=== PATIENT | male | born 1940 | race Caucasian/White ===

== ENCOUNTER 2016-10-13 05:56 | Day surgery (SDC) | payer OTHER ==
[~2016-10-13] VITALS: Ht 177.8 cm; Wt 93.2 kg
[~2016-10-13 05:56] MED LIST: GABA100C4 PO; LORTA5 PO; NOVOLOGP2 SQ; VALT1TAB26 PO
[2016-10-13] MEDS ORDERED: LANTUS2P SQ ×2 (06:40)
[2016-10-13] MEDS ORDERED: LATA0.002 RIGHT EYE (06:40)
[2016-10-13] MEDS ORDERED: OCUVTAB4 PO (06:40)
[2016-10-13] MEDS ORDERED: DORZ2SOL RIGHT EYE (06:40)
[2016-10-13] MEDS ORDERED: CHLORHEXIDINE GLUCONATE 2 % 1 PACK (2 CLOTHS) TOPICAL SCH (06:45)
[2016-10-13] MEDS ORDERED: SODIUM CHLORIDE 0.9% 1000 ML IV SCH (06:45)
[2016-10-13] MEDS ORDERED: POVIDONE IODINE 5% (ANTISEPSIS KIT) 4 APPLICATIONS EACH NARE SCH (06:45)
[2016-10-13] MEDS ORDERED: ceFAZolin 2 GM PREMIX 50 ML - implanted port/tunneled catheter insertion IV SCH (06:45)
[2016-10-13] MEDS ORDERED: VANCOMYCIN 1000 MG/NS 250 ML - implanted port/tunneled catheter IV SCH ×2 (06:45)
[2016-10-13 07:00] VITALS: BP 167/86; PULSE 76; RESP 16; TEMP 97.6; O2SAT 97
[2016-10-13] MEDS ORDERED: MIDAZOLAM HCL 2 MG/2 ML VIAL ONE (07:50)
[2016-10-13] MEDS ORDERED: fentaNYL CITRATE 250 MCG/5 ML AMP ONE (07:50)
[2016-10-13] MEDS ORDERED: LIDOCAINE 1%/EPINEPHrine 1:100,000 SOLN 20 ML VIAL ONE (08:06)
--- NOTE | 2016-10-13 08:51 | PD.RAD ---
Post Procedure Progress Note Pre Procedure Diagnosis: (1) Bladder cancer Post Procedure Diagnosis: (1) Bladder cancer Procedure Date: Oct 13, 2016 Supervising Radiologist: Ezio Briseno JR Proceduralist/Assist: Winston Baker, RT(R), Brandon Jolley RT(R) Anesthesia: Conscious Sedation Plan of Activity Patient to Unit: ROPU Patient Condition: Good See PACS Report for procedural detail/treatment Central Venous Access Device Procedure 1 Right Internal Jugular Infusaport Placement single lumen Salvadorean: 8 Findings: Port in good position and functions well. OK to use. Plan F/U with IR or a physician in 10-14 days for a site check Jr. Finn,Ezio Herman MD Oct 13, 2016 08:51
[2016-10-13 09:00] VITALS: BP 148/74; PULSE 83; RESP 16; TEMP 97.5; O2SAT 97
[2016-10-13] MEDS ORDERED: SODIUM CHLORIDE 0.9% FLUSH 10 ML FLUSH IVF PRN (09:00)
[2016-10-13 09:15] VITALS: BP 139/85; PULSE 81; RESP 16; O2SAT 96
[2016-10-13 09:30] VITALS: BP 127/76; PULSE 75; RESP 16; O2SAT 94
[2016-10-13 10:00] VITALS: BP 126/65; PULSE 75; RESP 16; O2SAT 96
[2016-10-13 10:36] VITALS: BP 135/85; PULSE 74; RESP 16; O2SAT 96
--- NOTE | 2016-10-13 14:47 | RADRPT ---
EXAM DATE/TIME: 10/13/2016 08:21 [facility] COMPARISON: No previous studies available for comparison. INDICATIONS : Patient presents with bladder cancer in need port placement for chemotherapy treatment. MEDICAL HISTORY : DM Prostate cancer Diverticulosis [place] SAL[place] Glac[place] Hyperlipidemia Bladder cancer SURGICAL HISTORY : Vasectomy Stent L common iliac Coronary stent BKA Left leg ENCOUNTER: Initial ACUITY: 2 months PAIN SCORE: 0/10 LOCATION: n/a FLUORO TIME: 0.4 minutes IMAGE SERIES: 0 SEDATION TIME: 30 minutes ACCESS: Right internal jugular vein SEDATION: 1.) 2 mg midazolam (Versed) IV 2.) 125 mcg fentanyl (Sublimaze) IV Prophylactic antibiotics were administered with appropriate pre-procedure timing. Vancomycin within 2 hours of procedure, Ancef (or alternative) within 1 hour of procedure. DEVICE: 1. [address] Armenian [address] w/vortex PROCEDURE : 1. Continuous pulse oximetry and EKG monitoring. 2. Intravenous conscious sedation. 3. Ultrasound guidance for venous access. 4. Fluoroscopic guided implantable central venous port placement. The patient was placed supine. The neck was prepped in sterile fashion. Full sterile technique was u sed, including cap, mask, sterile gloves and gown, and a large sterile sheet. Hand hygiene and 2% ch lorhexidine Betadine was utilized per protocol for cutaneous antisepsis with appropriate dry time for site. The skin and subcutaneous tissues were infiltrated with local anesthetic solution. Under direct ultrasound guidance, central venous access was accomplished in the targeted vessel. The ultrasound images depicting access guidance were stored and saved to PACS for permanent record. A s ubcutaneous pocket was created using blunt dissection. The port was introduced to the pocket. The c atheter tubing was fed through a subcutaneous tunnel to the venotomy site. The catheter tubing was c ut to a suitable length and then was introduced through a valved Peel-Away sheath and positioned with catheter tubing tip at the cavo-atrial junction level. The pocket incision was closed with subcutic ular Vicryl suture. Steri-Strips were applied. The port was flushed and locked with heparin solutio n per protocol. Sterile dressing was applied to the site. The patient tolerated the procedure well. Conscious sedation was performed with the prescribed dosages and duration as above in the presence of an independent trained radiology nurse to assist in the monitoring of the patient. EKG and oximetry remained stable throughout the procedure. The patient tolerated the procedure well and there were no complications. The patient was sent to post anesthesia recovery in stable condition. CONCLUSION: Uncomplicated ultrasound and fluoroscopic guided implanted central venous port catheter placement as described in detail above. An 8 Armenian Power port was placed. Ezio Briseno Jr., MD on October 13, 2016 at 14:45 Board Certified Radiologist. This report was verified electronically.
== END 2016-10-13 10:50 | disposition home or self-care (01) ==
LOC: HROP 05:56 → HRIP 06:42 → HROP 10:50
PROVIDERS: ATTEND Internal Medicine Hematology & Oncology
DX: Z45.2 Encounter for adjustment and management of vascular access device (principal); C67.9 Malignant neoplasm of bladder, unspecified; Z85.46 Personal history of malignant neoplasm of prostate; E11.9 Type 2 diabetes mellitus without complications; K57.90 Diverticulosis of intestine, part unspecified, without perforation or abscess without bleeding; E78.5 Hyperlipidemia, unspecified; Z79.4 Long term (current) use of insulin
CPT/HCPCS: 36561; 76937; 77001; 99152; 99153; C1788; C1894; J0690; J1642; J2250; J3010; J3370; J7030; J7050

== ENCOUNTER 2017-02-06 15:15 | Inpatient (IN) | payer OTHER, MEDICARE ==
[~2017-02-06] VITALS: Ht 177.8 cm; Wt 86.7 kg
[~2017-02-06 15:15] MED LIST changes: +DORZ2SOL RIGHT EYE; -GABA100C4 PO; +LANTUS2P SQ; +LATA0.002 RIGHT EYE; -LORTA5 PO; -NOVOLOGP2 SQ; +OCUVTAB4 PO; -VALT1TAB26 PO
[2017-02-06 15:45] VITALS: BP 190/86; PULSE 96; RESP 16; TEMP 97.9; O2SAT 97
[2017-02-06] MEDS ORDERED: AMLO10TA2 PO (16:38)
[2017-02-06] MEDS ORDERED: TEMA15CA PO (16:38)
[2017-02-06 16:40] VITALS: BP 231/105; PULSE 99; RESP 20; TEMP 98.1; O2SAT 98
[2017-02-06] MEDS ORDERED: SODIUM CHLOR 0.9% 1000 ML INJ 1,000 ML IV ONE (16:56)
[2017-02-06] MEDS ORDERED: SODIUM CHLORIDE 0.9% FLUSH 10 ML FLUSH IVF PRN (17:00)
--- NOTE | 2017-02-06 17:09 | PD ---
HPI Chief Complaint: Fall Time Seen by Provider: 16:44 Travel History International Travel<30 days: No Contact w/Intl Traveler<30days: No Traveled to known affect area: No History of Present Illness HPI This is a 76-year-old male with a history of bladder cancer, diabetes mellitus, hypertension, and presents here after having a syncopal episode. The patient states he is out sitting in the sun when he passed out. He denies any preceding events leading up to syncopal episode. He denies any chest pain, chest pressure. There is no headache. The patient is also noted to have elevated blood pressure with his diastolic and systolic being over 200/100 respectively. A shunt recently had his last chemotherapy for his bladder cancer. He scheduled to go to [facility] for bladder removal here within the next few weeks. 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 Patient also reports that his blood sugar has been on the high side. When asked what the high side meant, he states above 200 but below 300. also reports that he's been somewhat unstable on his gait. He also complains of right ankle pain. 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 PFSH Past Medical History Arthritis: Yes Anxiety: No Depression: Yes Heart Rhythm Problems: No Cancer: Yes (bladder, PROSTATE ) Cardiomyopathy: Yes Cardiovascular Problems: No High Cholesterol: Yes Congestive Heart Failure: No Cerebrovascular Accident: Yes (TIA ) Coronary Artery Disease: Yes Diabetes: Yes Patient Takes Glucophage: No Diminished Hearing: Yes (PALA RT EAR) Endocrine: Yes (diabetes) GERD: Yes Genitourinary: Yes (bladder cancer) Hepatitis: No Hiatal Hernia: No Hypertension: Yes Immune Disorder: No Implanted Vascular Access Dvce: Yes (PORT R CHEST ) Kidney Stones: No Medical other: Yes (HYPERLIPIDEMIA) Musculoskeletal: Yes (LBKA) Neurologic: Yes (cva) Psychiatric: No Reproductive: No Respiratory: No Migraines: No Radiation Therapy: Yes (2006) Renal Failure: No Seizures: No Shingles: Yes Sleep Apnea: No Thyroid Disease: No Ulcer: No Tetanus Vaccination: > 5 Years Influenza Vaccination: Yes Past Surgical History Abdominal Surgery: Yes (cholecystectomy) AICD: No Arteriovenous Shunt: No Body Medical Devices: L ILIAC STENT Cardiac Surgery: No Cholecystectomy: Yes Coronary Stent: Yes (DR. SIMEON) Ear Surgery: No Endocrine Surgery: Yes (thyroid) Eye Surgery: Yes (cataract right eye) Genitourinary Surgery: Yes (bladder) Gynecologic Surgery: No Insulin Pump: No Joint Replacement: No Neurologic Surgery: Yes (back) Oral Surgery: No Pacemaker: No Thoracic Surgery: No Tonsillectomy: Yes Other Surgery: Yes (LBKA, cholecystectomy, bladder, back. 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 benazepril (Unverified Adverse Reaction, Intermediate, Cough, 02/06/17) captopril (Unverified Adverse Reaction, Intermediate, Cough, 02/06/17) enalaprilat (Unverified Adverse Reaction, Intermediate, Cough, 02/06/17) fosinopril (Unverified Adverse Reaction, Intermediate, Cough, 02/06/17) lisinopril (Unverified Adverse Reaction, Intermediate, Cough, 02/06/17) quinapril (Unverified Adverse Reaction, Intermediate, Cough, 02/06/17) Reported Meds & Prescriptions Reported Meds & Active Scripts Active Reported Temazepam 15 Mg Cap 15 Mg PO HS PRN Amlodipine (Amlodipine Besylate) 10 Mg Tab 10 Mg PO DAILY Preservision Areds (Multiple Vitamins W/ Minerals) 1 Tab 2 Tab PO DAILY Dorzolamide Opth Drops (Dorzolamide HCl) 2% Soln 1 Drop RIGHT EYE BID Latanoprost Opth Drops (Latanoprost) 0.005% Drops 1 Drop RIGHT EYE HS Refrigerate until opened. Lantus Inj (Insulin Glargine) 1,000 Unit/10 Ml Vial 30 Units SQ HS Lantus Inj (Insulin Glargine) 1,000 Unit/10 Ml Vial 25 Units SQ DAILY Review of Systems Except as stated in HPI: all other systems reviewed are Neg General / Constitutional: No: Fever, Chills HENT: Positive: Lightheadedness, No: Headaches Cardiovascular: No: Chest Pain or Discomfort, Palpitations Respiratory: No: Cough, Shortness of Breath Gastrointestinal: No: Nausea, Vomiting Genitourinary: Positive: Dysuria Musculoskeletal: Positive: Weakness, Pain Neurologic: Positive: Weakness, Syncope, Headache Physical Exam Narrative GENERAL: Ill appearing male in no acute rest her distress. SKIN: Focused skin assessment warm/dry. HEAD: Atraumatic. Normocephalic. EYES: Pupils equal and round. No scleral icterus. No injection or drainage. ENT: No nasal bleeding or discharge. Mucous membranes pale and moist NECK: Trachea midline. No JVD. Supple. CARDIOVASCULAR: Regular rate and rhythm. No murmur appreciated. RESPIRATORY: No accessory muscle use. Clear to auscultation. Breath sounds equal bilaterally. GASTROINTESTINAL: Abdomen soft, non-tender, nondistended. MUSCULOSKELETAL: No obvious deformities. No clubbing. No cyanosis. No edema. NEUROLOGICAL: Awake and alert. No obvious cranial nerve deficits. Motor grossly within normal limits. Normal speech. Data Data Last Documented VS Vital Signs Date Time Temp Pulse Resp B/P (MAP) Pulse Ox O2 Delivery O2 Flow Rate FiO2 02/06/17 19:00 99 16 215/95 (135) 99 02/06/17 18:39 Room Air 02/06/17 16:40 98.1 Orders Orders Electrocardiogram (02/06/17 16:56) Complete Blood Count With Diff (02/06/17 16:56) Comprehensive Metabolic Panel (02/06/17 16:56) Ckmb (Isoenzyme) Profile (02/06/17 16:56) Troponin I (02/06/17 16:56) Act Partial Throm Time (Ptt) (02/06/17 16:56) Prothrombin Time / Inr (Pt) (02/06/17 16:56) Urinalysis - C+S If Indicated (02/06/17 16:56) Chest, Single Ap (02/06/17 16:56) Ct Brain W/O Iv Contrast(Rout) (02/06/17 16:56) Ecg Monitoring (02/06/17 16:56) Iv Access Insert/Monitor (02/06/17 16:56) Oximetry (02/06/17 16:56) Sodium Chloride 0.9% Flush (Ns Flush) (02/06/17 17:00) Sodium Chlor 0.9% 1000 Ml Inj (Ns 1000 M (02/06/17 16:56) Ankle, Limited (Ap&Lat) (02/06/17 17:09) Urine Culture (02/06/17 17:30) CKMB (02/06/17 17:30) CKMB% (02/06/17 17:30) Potassium Chloride (Kcl) (02/06/17 19:00) Ns + Kcl 40 Meq Inj (Ns + Kcl 40 Meq Inj (02/06/17 19:45) Labs Laboratory Tests Test 02/06/17 17:30 White Blood Count 5.2 TH/MM3 Red Blood Count 2.89 MIL/MM3 Hemoglobin 8.9 GM/DL Hematocrit 26.1 % Mean Corpuscular Volume 90.4 FL Mean Corpuscular Hemoglobin 30.9 PG Mean Corpuscular Hemoglobin Concent 34.2 % Red Cell Distribution Width 21.7 % Platelet Count 227 TH/MM3 Mean Platelet Volume 8.4 FL Neutrophils (%) (Auto) 67.1 % Lymphocytes (%) (Auto) 13.3 % Monocytes (%) (Auto) 17.8 % Eosinophils (%) (Auto) 1.4 % Basophils (%) (Auto) 0.4 % Neutrophils # (Auto) 3.5 TH/MM3 Lymphocytes # (Auto) 0.7 TH/MM3 Monocytes # (Auto) 0.9 TH/MM3 Eosinophils # (Auto) 0.1 TH/MM3 Basophils # (Auto) 0.0 TH/MM3 CBC Comment DIFF FINAL Differential Comment Prothrombin Time 10.8 SEC Prothromb Time International Ratio 1.0 RATIO Activated Partial Thromboplast Time 20.6 SEC Urine Color YELLOW Urine Turbidity HAZY Urine pH 6.5 Urine Specific [place] 1.025 Urine Protein GREATER THAN 600 mg/dL Urine Glucose (UA) 300 mg/dL Urine Ketones TRACE mg/dL Urine Occult Blood MOD Urine Nitrite NEG Urine Bilirubin NEG Urine Urobilinogen LESS THAN 2.0 MG/DL Urine Leukocyte Esterase NEG Urine RBC 4 /hpf Urine WBC 5 /hpf Urine WBC Clumps RARE Urine Bacteria OCC /hpf Urine Hyaline Casts 3 /lpf Urine Granular Casts 3 /lpf Urine Mucus FEW /lpf Microscopic Urinalysis Comment CULTURE INDICATED Blood Urea Nitrogen 14 MG/DL Creatinine 0.85 MG/DL Random Glucose 141 MG/DL Total Protein 4.0 GM/DL Albumin 1.8 GM/DL Calcium Level 5.3 MG/DL Alkaline Phosphatase 56 U/L Aspartate Amino Transf (AST/SGOT) 17 U/L Alanine Aminotransferase (ALT/SGPT) 9 U/L Total Bilirubin 0.4 MG/DL Sodium Level 143 MEQ/L Potassium Level 2.6 MEQ/L Chloride Level 116 MEQ/L Carbon Dioxide Level 18.3 MEQ/L Anion Gap 9 MEQ/L Estimat Glomerular Filtration Rate 88 ML/MIN Protein Corrected Calcium 6.6 MG/DL Total Creatine Kinase 157 U/L Creatine Kinase MB 3.2 NG/ML Troponin I 0.05 NG/ML MDM Medical Decision Making Medical Screen Exam Complete: Yes Emergency Medical Condition: Yes Differential Diagnosis Cardiac syncope versus hypertensive urgency/emergency versus metabolic derangement Narrative Course 76-year-old male presents after having a syncopal episode. The patient was noted to have elevated blood pressure here. Patient also has a history of bladder cancer and received his last dose of chemotherapy last week. He has a history of anemia as well. He denies any arrhythmia or irregular heart feelings. The patient is noted to have a potassium of 2.6. He is also noted to have a calcium level 5.1. He'll be admitted to the hospital. He'll be typed and crossed. He'll be given hydralazine, 20 mg times one dose. Case was discussed with Dr. Aileen Bingham, [facility] hospitalist. Diagnosis Primary Impression: Syncope Additional Impressions: Uncontrolled hypertension Hypokalemia Hypocalcemia Anemia History of bladder cancer Admitting Information Admitting Physician Requests: Admit Torito Gates MD Feb 06, 2017 17:09
--- NOTE | 2017-02-06 17:15 | RADRPT ---
EXAM DATE/TIME: 02/06/2017 17:05 [facility] COMPARISON: No previous studies available for comparison. INDICATIONS : Palpitations MEDICAL HISTORY : Hypertension. Cardiovascular disease Diabetes mellitus type 1. SURGICAL HISTORY : Infusaport ENCOUNTER: Initial ACUITY: 1 day PAIN SCORE: 0/10 LOCATION: chest FINDINGS: A single view of the chest demonstrates the lungs to be symmetrically aerated without evidence of mas s, infiltrate or effusion. [id number] in good position. Mild compensated cardiomegaly kable. Os seous structures are intact. CONCLUSION: Compensated cardiomegaly otherwise negative Bennett Ibarra MD FACR on February 06, 2017 at 17:13 Board Certified Radiologist. This report was verified electronically.
--- NOTE | 2017-02-06 17:47 | RADRPT ---
EXAM DATE/TIME: 02/06/2017 17:17 [facility] COMPARISON: No previous studies available for comparison. INDICATIONS : Fall. Medial right ankle pain. MEDICAL HISTORY : Hypertension. Cardiovascular disease. Diabetes mellitus type I. SURGICAL HISTORY : Infusaport. ENCOUNTER: Initial ACUITY: 1 day PAIN SCORE: 4/10 LOCATION: Right medial ankle FINDINGS: Moderate vascular calcifications. Negative for fracture. Anatomic alignment. CONCLUSION: Negative for fracture. Bennett Ibarra MD FACR on February 06, 2017 at 17:45 Board Certified Radiologist. This report was verified electronically.
[2017-02-06 18:08] LABS: AUTOMATED NEUTROPHIL # 3.5 TH/MM3 (1.8-7.7); BASOPHIL % 0.4 % (0.0-2.0); EOSINOPHIL # 0.1 TH/MM3 (0-0.4); EOSINOPHIL % 1.4 % (0.0-4.0); HEMATOCRIT 26.1 % (39.0-51.0); HEMO FLAGS DIFF FINAL; LYMPH % 13.3 % (9.0-44.0); LYMPHOCYTE # 0.7 TH/MM3 (1.0-4.8); MEAN CELL VOLUME 90.4 FL (80.0-100.0); MEAN CORPUSCULAR HEMOGLOBIN 30.9 PG (27.0-34.0); MEAN CORPUSCULAR HGB CONC 34.2 % (32.0-36.0); MONO % 17.8 % (0.0-8.0); NEUT % 67.1 % (16.0-70.0); PLATELET COUNT 227 TH/MM3 (150-450); RED BLOOD COUNT 2.89 MIL/MM3 (4.50-5.90); RED CELL DISTRIBUTION WIDTH 21.7 % (11.6-17.2); WHITE BLOOD COUNT 5.2 TH/MM3 (4.0-11.0)
[2017-02-06 18:18] LABS: BACTERIA, URINE OCC /hpf; BLOOD, URINE MOD (NEG); COMMENT (UR) CULTURE INDICATED; CULTURE IF INDICATED CULTURE INDICATED; GLUCOSE,URINE 300 mg/dL (NEG); GRANULAR CAST, URINE 3 /lpf; HYALINE CAST, URINE 3 /lpf (RARE); KETONE, URINE TRACE mg/dL (NEG); MUCUS URINE FEW /lpf (OCC); NITRITE,URINE NEG (NEG); PH, URINE 6.5 (5.0-8.5); URINE COLOR YELLOW (YELLW/STRAW)
[2017-02-06 18:26] LABS: APTT (PATIENT) 20.6 SEC (24.3-30.1); PROTHROMBIN TIME - PATIENT 10.8 SEC (9.8-11.6)
[2017-02-06 18:39] VITALS: BP 221/100; PULSE 98; RESP 20; O2SAT 96
[2017-02-06 18:49] LABS: ALT (GPT) 9 U/L (12-78); ANION GAP 9 MEQ/L (5-15); AST (GOT) 17 U/L (15-37); BICARBONATE 18.3 MEQ/L (21.0-32.0); BLOOD UREA NITROGEN 14 MG/DL (7-18); CHLORIDE 116 MEQ/L (98-107); GLOMERULAR FILTRATION RATE 88 ML/MIN (>89); SODIUM (NA) 143 MEQ/L (136-145)
[2017-02-06 18:52] LABS: ALKALINE PHOSPHATASE 56 U/L (45-117); CREATINE KINASE 157 U/L (39-308); TOTAL BILIRUBIN ADULT 0.4 MG/DL (0.2-1.0)
[2017-02-06 18:55] LABS: CALCIUM-PROTEIN CORRECTED 6.6 MG/DL (8.5-10.1)
[2017-02-06 18:56] LABS: POTASSIUM 2.6 MEQ/L (3.5-5.1)
[2017-02-06 19:00] VITALS: BP 215/95; PULSE 99; RESP 16; O2SAT 99
[2017-02-06] MEDS ORDERED: POTASSIUM CHLORIDE 10 MEQ CONTROLLED RELEASE TAB PO ONE (19:00)
[2017-02-06 19:09] LABS: CKMB 3.2 NG/ML (0.5-3.6)
--- NOTE | 2017-02-06 19:12 | RADRPT ---
EXAM DATE/TIME: 02/06/2017 17:57 [facility] COMPARISON: No previous studies available for comparison. INDICATIONS : Patient fell due to dizziness. RADIATION DOSE: 48.35 CTDIvol (mGy) MEDICAL HISTORY : Cardiovascular disease. Hypertension. Diabetes mellitus type 1.bladder cancer, prostate cancer SURGICAL HISTORY : Cholecystectomy. ENCOUNTER: Initial ACUITY: 1 day PAIN SCALE: 5/10 LOCATION: cranial TECHNIQUE: Multiple contiguous axial images were obtained of the head. Using automated exposure control and adj ustment of the mA and/or kV according to patient size, radiation dose was kept as low as reasonably a chievable to obtain optimal diagnostic quality images. DICOM format image data is available electro nically for review and comparison. FINDINGS: CEREBRUM: The ventricles are normal for age. Mild, symmetric cortical atrophy. 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 No evidence of midline shift, mass lesion, hemorrhage or acute infarction. No extra-axial fluid collections are seen. POSTERIOR FOSSA: The cerebellum and brainstem are intact. The 4th ventricle is midline. The cerebellopontine angle i s unremarkable. EXTRACRANIAL: The visualized portion of the orbits is intact. Fluid in some of the mastoid air cells on the right c haracteristic of a mastoiditis. SKULL: The calvaria is intact. No evidence of skull fracture. CONCLUSION: 1. 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 2. Mild, acute mastoiditis on the right. 3. Otherwise, no acute intracranial process. Ernesto Doss MD on February 06, 2017 at 19:06 Board Certified Radiologist. This report was verified electronically.
[2017-02-06] MEDS ORDERED: SENNOSIDES 8.6 MG TAB PO PRN (19:45)
[2017-02-06] MEDS ORDERED: ACETAMINOPHEN 325 MG TAB PO PRN (19:45)
[2017-02-06] MEDS ORDERED: DEXTROSE 50% IN WATER 50 ML VIAL(D50) IV PUSH PRN (19:45)
[2017-02-06] MEDS ORDERED: MAGNESIUM HYDROXIDE SUSP 30 ML CUP PO PRN (19:45)
[2017-02-06] MEDS ORDERED: BISACODYL 10 MG SUPP RECTAL PRN (19:45)
[2017-02-06] MEDS ORDERED: LACTULOSE SYRUP 20 GM/30 ML CUP PO PRN (19:45)
[2017-02-06] MEDS ORDERED: ONDANSETRON HCL 4 MG/2 ML VIAL IVP PRN (19:45)
[2017-02-06] MEDS ORDERED: NALOXONE HCL 0.4 MG/ML AMP IV PUSH PRN (19:45)
[2017-02-06] MEDS ORDERED: SODIUM CHLORIDE 0.9% FLUSH 10 ML FLUSH IV FLUSH PRN (19:45)
[2017-02-06] MEDS ORDERED: GLUCAGON 1 MG/ML VIAL OTHER PRN (19:45)
[2017-02-06] MEDS ORDERED: TEMAZEPAM 15 MG CAP PO PRN (20:00)
[2017-02-06] MEDS ORDERED: hydrALAZINE HCL 20 MG/ML VIAL IV PUSH ONE (20:00)
[2017-02-06] MEDS ORDERED: cefTRIAXone INJ 1,000 MG in SODIUM CHLORIDE 0.9% INJ 100 ML IV ONE (20:00)
[2017-02-06] MEDS ORDERED: cefTRIAXone INJ 1,000 MG in SODIUM CHLORIDE 0.9% INJ 100 ML IV SCH (20:00)
[2017-02-06] MEDS: NS + KCL 40 MEQ INJ 1,000 ML IV SCH (20:03)
[2017-02-06 20:33] VITALS: BP 153/70
[2017-02-06 20:36] VITALS: BP 160/71; PULSE 110; RESP 20; TEMP 98; O2SAT 98
[2017-02-06] MEDS ORDERED: INSULIN GLARGINE 1,000 UNITS/10 ML VIAL SQ SCH (21:00)
[2017-02-06] MEDS: SODIUM CHLORIDE 0.9% FLUSH 10 ML FLUSH IV FLUSH SCH (21:00)
[2017-02-06] MEDS: INSULIN ASPART SUPPLEMENTAL SCALE SQ SCH (21:00)
[2017-02-06] MEDS: INSULIN DETEMIR 100 UNITS/ML VIAL SQ SCH (21:00)
[2017-02-06] MEDS: LATANOPROST 0.005% OPHT SOLN 2.5 ML BTL RIGHT EYE SCH (21:00)
--- NOTE | 2017-02-06 21:17 | HHI.HP ---
[facility] Primary Care Physician Pao Castaneda MD Admission Diagnosis syncope, hypokalemia, hypocalcemia, anemia Diagnoses: Travel History International Travel<30 Days: No Contact w/Intl Traveler <30 Da: No Traveled to Known Affected Are: No History of Present Illness 76-year-old male with a past medical history significant for bladder cancer, hypertension and insulin-dependent diabetes mellitus resents to the emergency department after a syncopal episode. The patient states that he was sitting in the sun when he passed out. He states he felt lightheaded and dizzy and does not remember the rest. A neighbor called 911. He also had a syncopal episode on Monday resulting in him falling out of the bed. He denies any chest pain/ pressure. The patient was found to be hypertensive in the emergency department with a blood pressure of 231/105. He denies any headaches or blurry vision. Per his cna gna, he has been confused since the incident. He is currently A& O 3. The patient has multiple metabolic derangements including a potassium of 2.6 and a corrected calcium of 6.6. His UA was consistent with UTI. 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 Denies alcohol or illicit drugs. Physical Exam Vital Signs Vital Signs Date Time Temp Pulse Resp B/P (MAP) Pulse Ox O2 Delivery O2 Flow Rate FiO2 02/06/17 20:33 101 16 153/70 (97) 99 02/06/17 19:00 99 16 215/95 (135) 99 02/06/17 18:39 98 20 221/100 (140) 96 Room Air 02/06/17 16:40 98.1 99 20 231/105 (147) 98 Room Air 02/06/17 15:45 97.9 96 16 190/86 (120) 97 Physical Exam GENERAL: male lying in bed SKIN: No rashes, ecchymoses or lesions. Cool and dry. HEAD: Atraumatic. Normocephalic. No temporal or scalp tenderness. EYES: Pupils equal round and reactive. Extraocular motions intact. No scleral icterus. No injection or drainage. ENT: Nose without bleeding, purulent drainage or septal hematoma. Throat without erythema, tonsillar hypertrophy or exudate. Uvula midline. Airway patent. NECK: Trachea midline. No JVD or lymphadenopathy. Supple, nontender, no meningeal signs. CARDIOVASCULAR: Regular rate and rhythm without murmurs, gallops, or rubs. RESPIRATORY: Clear to auscultation. Breath sounds equal bilaterally. No wheezes , rales, or rhonchi. GASTROINTESTINAL: Abdomen soft, non-tender, nondistended. No hepato-splenomegaly , or palpable masses. No guarding. MUSCULOSKELETAL: 1+ pitting edema to the mid adams of the right lower extremity. Left lower extremity with AKA. No calf tenderness. Negative Homans sign bilaterally. NEUROLOGICAL: Awake and alert. Cranial nerves II through XII intact. Motor and sensory grossly within normal limits. Normal speech. Laboratory Laboratory Tests Test 02/06/17 17:30 White Blood Count 5.2 Red Blood Count 2.89 Hemoglobin 8.9 Hematocrit 26.1 Mean Corpuscular Volume 90.4 Mean Corpuscular Hemoglobin 30.9 Mean Corpuscular Hemoglobin Concent 34.2 Red Cell Distribution Width 21.7 Platelet Count 227 Mean Platelet Volume 8.4 Neutrophils (%) (Auto) 67.1 Lymphocytes (%) (Auto) 13.3 Monocytes (%) (Auto) 17.8 Eosinophils (%) (Auto) 1.4 Basophils (%) (Auto) 0.4 Neutrophils # (Auto) 3.5 Lymphocytes # (Auto) 0.7 Monocytes # (Auto) 0.9 Eosinophils # (Auto) 0.1 Basophils # (Auto) 0.0 CBC Comment DIFF FINAL Differential Comment Prothrombin Time 10.8 Prothromb Time International Ratio 1.0 Activated Partial Thromboplast Time 20.6 Urine Color YELLOW Urine Turbidity HAZY Urine pH 6.5 Urine Specific [place] 1.025 Urine Protein GREATER THAN 600 Urine Glucose (UA) 300 Urine Ketones TRACE Urine Occult Blood MOD Urine Nitrite NEG Urine Bilirubin NEG Urine Urobilinogen LESS THAN 2.0 Urine Leukocyte Esterase NEG Urine RBC 4 Urine WBC 5 Urine WBC Clumps RARE Urine Bacteria OCC Urine Hyaline Casts 3 Urine Granular Casts 3 Urine Mucus FEW Microscopic Urinalysis Comment CULTURE INDICATED Blood Urea Nitrogen 14 Creatinine 0.85 Random Glucose 141 Total Protein 4.0 Albumin 1.8 Calcium Level 5.3 Alkaline Phosphatase 56 Aspartate Amino Transf (AST/SGOT) 17 Alanine Aminotransferase (ALT/SGPT) 9 Total Bilirubin 0.4 Sodium Level 143 Potassium Level 2.6 Chloride Level 116 Carbon Dioxide Level 18.3 Anion Gap 9 Estimat Glomerular Filtration Rate 88 Protein Corrected Calcium 6.6 Total Creatine Kinase 157 Creatine Kinase MB 3.2 Troponin I 0.05 Date/Time Source Procedure Growth Status 02/06/17 17:30 Urine Random Urine Urine Culture Pending Worksheet Result Diagram: 02/06/17172902/06/171729 Caprini VTE Risk Assessment Caprini VTE Risk Assessment: Mod/High Risk (score >= 2) Caprini Risk Assessment Model Point Value = 1 Point Value = 2 Point Value = 3 Point Value = 5 Age 41-60 Minor surgery BMI > 25 kg/m2 Swollen legs Varicose veins or History of unexplained or recurrent spontaneous Oral contraceptives or hormone replacement Sepsis (< 1 month) Serious lung disease, including pneumonia (< 1 month) Abnormal pulmonary function Acute myocardial infarction Congestive heart failure (< 1 month) History of inflammatory bowel disease Medical patient at bed rest Age 61-74 Arthroscopic surgery Major open surgery (> 45 min) Laparoscopic surgery (> 45 min) Malignancy Confined to bed (> 72 hours) Immobilizing plaster cast Central venous access Age >= 75 History of VTE Family history of VTE Factor V Leiden Prothrombin [id number] Lupus anticoagulant Anticardiolipin antibodies Elevated serum homocysteine Heparin-induced thrombocytopenia Other congenital or acquired thrombophilia Stroke (< 1 month) Elective arthroplasty Hip, pelvis, or leg fracture Acute spinal cord injury (< 1 month) Prophylaxis Regimen Total Risk Factor Score Risk Level Prophylaxis Regimen 0-1 Low Early ambulation 2 Moderate Order ONE of the following: *Sequential Compression Device (SCD) *Heparin 5000 units SQ BID 3-4 Higher Order ONE of the following medications: *Heparin 5000 units SQ TID *Enoxaparin/Lovenox 40 mg SQ daily (WT < 150 kg, CrCl > 30 mL/min) *Enoxaparin/Lovenox 30 mg SQ daily (WT < 150 kg, CrCl > 10-29 mL/min) *Enoxaparin/Lovenox 30 mg SQ BID (WT < 150 kg, CrCl > 30 mL/min) AND/OR *Sequential Compression Device (SCD) 5 or more Highest Order ONE of the following medications: *Heparin 5000 units SQ TID (Preferred with Epidurals) *Enoxaparin/Lovenox 40 mg SQ daily (WT < 150 kg, CrCl > 30 mL/min) *Enoxaparin/Lovenox 30 mg SQ daily (WT < 150 kg, CrCl > 10-29 mL/min) *Enoxaparin/Lovenox 30 mg SQ BID (WT < 150 kg, CrCl > 30 mL/min) AND *Sequential Compression Device (SCD) Assessment and Plan Assessment and Plan 76-year-old male with insulin-dependent diabetes mellitus, hypertension and bladder cancer presents after syncopal episode with hypertensive crisis. 1. Syncopal episode [address] without acute intracranial process Carotid ultrasound, echocardiogram pending 2. Hypokalemia Status post by mouth supplementation in the ED IV fluids with potassium Follow-up BMP 3. Hypertensive crisis Responded to hydralazine 1 Continue when necessary hydralazine Continue home amlodipine Monitor and adjust BP medications as needed 4. UTI Urine culture pending Rocephin 5. Insulin-dependent diabetes mellitus Continue home insulin SSI 6. Bladder cancer Patient received his last chemotherapy last Monday Is scheduled to be seen at [facility] for cystectomy Oncologist is Dr. Dumont 7. Anemia H&H 8.9/26.1 At baseline Follow CBC Transfuse when necessary 8. Hypocalcemia Calcium carbonate twice a day FEN NS + 40 KCl at 84 cc/hr Heart healthy diet Electrolytes: as above Heparin Case discussed with ER physician at length Physician Certification 2 Midnight Certification Type: Admission for Inpatient Services Order for Inpatient Services The services are ordered in accordance with Medicare regulations or non- Medicare payer requirements, as applicable. In the case of services not specified as inpatient-only, they are appropriately provided as inpatient services in accordance with the 2-midnight benchmark. Estimated LOS (days): 2 2 days is the estimated time the patient will need to remain in the hospital, assuming treatment plan goals are met and no additional complications. Post-Hospital Plan: Not yet determined Aileen Bingham MD Feb 06, 2017 21:17
[2017-02-06] MEDS: CALCIUM CARBONATE 500 MG CHEWABLE TAB CHEW SCH (22:27)
[2017-02-06] MEDS: HEPARIN SODIUM - SQ 10,000 UNITS/ML VIAL SQ SCH (22:27)
--- NOTE | 2017-02-06 23:49 | RADRPT ---
EXAM DATE/TIME: 02/06/2017 21:43 [facility] COMPARISON: No previous studies available for comparison. INDICATIONS : Syncope. MEDICAL HISTORY : Stroke. Hypercholesterolemia. Hypertension. Hearing loss. Glasses. Neuropathy. Coronary artery diseas e. Gastroesophageal reflux disease. Prostate cancer. Bladder cancer. Arthritis. Diabetes. Hyperlipide alexandr. MRSA. SURGICAL HISTORY : Tonsillectomy. Coronary artery stent. Cholecystectomy. Right eye cataract surgery. Left below knee am putation. Thyroid surgery. ENCOUNTER: Initial ACUITY: 1 day PAIN SCORE: 5/10 LOCATION: Bilateral neck PEAK SYSTOLIC VELOCITIES (cm/sec): CCA: Right: 129.4 Left: 139.1 ECA: Right: 109.8 VERTEBRAL: Right: 91.1 antegrade Elevated flow velocities and ICA/CCA ratios have been found to correlate with increased degrees of vessel stenosis, calculated as percentage of diameter relative to a normal segment of distal ICA/CCA FINDINGS: Patient was extremely uncooperative and demanded that the technologist to stop the examination. On th e images submitted, there may be occlusion of the right internal carotid artery with a dense calcific ation of the left carotid bulb. However, waveforms were not obtained on the left side. There is anteg rade flow in the right vertebral artery. Left vertebral was not evaluated. CONCLUSION: 1. Incomplete examination. Patient refused further imaging. 2. I'm concerned there may be occlusion of the right internal carotid artery. Dense calcification in the left carotid bulb with no Doppler evaluation of the left carotid system. 3. Antegrade flow in the right vertebral artery. Left vertebral was not imaged. Ernesto Doss MD on February 06, 2017 at 23:43 Board Certified Radiologist. This report was verified electronically.
[2017-02-07] VITALS (8 sets, daily range): BP systolic 105–208; BP diastolic 50–93; PULSE 67–112; RESP 16–20; TEMP 97–98.6; O2SAT 94–97
[2017-02-07] MEDS: hydrALAZINE HCL 20 MG/ML VIAL IV PUSH PRN (05:24)
[2017-02-07] MEDS: HEPARIN SODIUM - SQ 10,000 UNITS/ML VIAL SQ SCH ×3 (05:24→23:20)
[2017-02-07] MEDS: INSULIN ASPART SUPPLEMENTAL SCALE SQ SCH ×4 (08:00→21:00)
[2017-02-07] MEDS: CALCIUM CARBONATE 500 MG CHEWABLE TAB CHEW SCH ×2 (08:12→21:00)
[2017-02-07] MEDS: SODIUM CHLORIDE 0.9% FLUSH 10 ML FLUSH IV FLUSH SCH ×2 (08:13→21:00)
[2017-02-07 08:32] LABS: AUTOMATED NEUTROPHIL # 2.8 TH/MM3 (1.8-7.7); BASOPHIL % 0.4 % (0.0-2.0); EOSINOPHIL # 0.1 TH/MM3 (0-0.4); EOSINOPHIL % 1.3 % (0.0-4.0); HEMATOCRIT 26.9 % (39.0-51.0); HEMO FLAGS DIFF FINAL; LYMPH % 20.7 % (9.0-44.0); MEAN CELL VOLUME 89.6 FL (80.0-100.0); MEAN CORPUSCULAR HEMOGLOBIN 29.5 PG (27.0-34.0); MEAN CORPUSCULAR HGB CONC 32.9 % (32.0-36.0); MONO % 18.7 % (0.0-8.0); NEUT % 58.9 % (16.0-70.0); PLATELET COUNT 309 TH/MM3 (150-450); RED BLOOD COUNT 3.01 MIL/MM3 (4.50-5.90); RED CELL DISTRIBUTION WIDTH 21.6 % (11.6-17.2); WHITE BLOOD COUNT 4.8 TH/MM3 (4.0-11.0)
[2017-02-07] MEDS ORDERED: cloNIDine HCL 0.1 MG TAB PO PRN (08:45)
[2017-02-07 08:59] LABS: POTASSIUM 3.4 MEQ/L (3.5-5.1)
[2017-02-07] MEDS ORDERED: INSULIN GLARGINE 1,000 UNITS/10 ML VIAL SQ SCH (09:00)
[2017-02-07] MEDS ORDERED: INSULIN DETEMIR 100 UNITS/ML VIAL SQ SCH (09:00)
[2017-02-07] MEDS: NS + KCL 40 MEQ INJ 1,000 ML IV SCH (09:06)
[2017-02-07 09:10] LABS: CALCIUM-PROTEIN CORRECTED 8.1 MG/DL (8.5-10.1)
[2017-02-07] MEDS ORDERED: POTASSIUM CHLORIDE 10 MEQ CONTROLLED RELEASE TAB PO ONE (12:00)
[2017-02-07] MEDS: MAGNESIUM SULFATE 1 GM PREMIX 100 ML IV SCH ×2 (12:36→12:53)
[2017-02-07] MEDS: DORZOLAMIDE 2% OPTH SOLN 200 DROP/10 ML BTLO RIGHT EYE SCH ×2 (12:36→21:00)
--- NOTE | 2017-02-07 13:21 | PD.PSY.CON ---
Provisional Diagnosis Admission Date Feb 06, 2017 at 19:40 Arnold I. Unspecified psychosis Arnold II. Deferred History of Present Illness Service Psychiatry Consult Requested By Medical team Reason for Consult Increase visual hallucinations Primary Care Physician Pao Castaneda MD HPI The patient is a 76-year-old man, domiciled alone in [place], , retired, supported by Social Security, without no previous psychiatric history, no previous suicidal attempts, no previous psychiatric hospitalizations , with a past medical history significant for bladder cancer, hypertension and insulin-dependent diabetes mellitus resents to the emergency department after a syncopal episode. The patient states that he was sitting in the sun when he passed out. He states he felt lightheaded and dizzy and does not remember the rest. A neighbor called 911. He also had a syncopal episode on Monday resulting in him falling out of the bed. He denies any chest pain/pressure. The patient was found to be hypertensive in the emergency department with a blood pressure of 231/105. He denies any headaches or blurry vision. Per his culinary arts teacher, he has been confused since the incident. He is currently A&O 3. The patient has multiple metabolic derangements including a potassium of 2.6 and a corrected calcium of 6.6. His UA was consistent with UTI. Consulted to psychiatry due to progressive perceptual disturbances. On psychiatric evaluation today the patient is calm, cooperative and pleasant. Patient reports that he has a good mood, good motivation, good spirit. Patient denies symptomatology of depression, anhedonia, he denies hopelessness, helplessness, worthlessness, she denies suicidal and homicidal ideation. He denies anxiety. What patient reports is about 2 weeks of increased in severity, frequency visual hallucinations. Patient says that he sees very colorful people, coming around him surrounding him and walking around him. Sometimes could be kids or even animals. Perceptual disturbances are usually mute. Patient perceives this based hallucinations as friendly, no anxiety provoking, no scary. He says that he is insightful about the nature and unreality on the hallucinations most of the time, however he says that in the last day they have been becoming overwhelming. The patient denies the use of alcohol and illicit drugs. He is fully oriented 3, no attention deficit, no fluctuation of consciousness present. Patient denies paranoia, ideas of reference, thought controlling, delusions. No agitation, no aggressive behavior reported or observed. Review of Systems Constitutional: DENIES: Diaphoretic episodes, Fatigue, Fever, Weight gain, Weight loss, Chills, Dizziness, Change in appetite, Night Sweats Endocrine: DENIES: Heat/cold intolerance, Polydipsia, Polyuria, Polyphagia Eyes: DENIES: Blurred vision, Diplopia, Eye inflammation, Eye pain, Vision loss , Photosensitivity, Double Vision Ears, nose, mouth, throat: DENIES: Tinnitus, Hearing loss, Vertigo, Nasal discharge, Oral lesions, Throat pain, Hoarseness, Ear Pain, Running Nose, Epistaxis, Sinus Pain, Toothache, Odynophagia Respiratory: DENIES: Apneas, Cough, Snoring, Wheezing, Hemoptysis, Sputum production, Shortness of breath Cardiovascular: DENIES: Chest pain, Palpitations, Syncope, Dyspnea on Exertion , PND, Lower Extremity Edema, Orthopnea, Claudication Gastrointestinal: DENIES: Abdominal pain, Black stools, Bloody stools, Constipation, Diarrhea, Nausea, Vomiting, Difficulty Swallowing, Anorexia Genitourinary: DENIES: Sexual dysfunction, Urinary frequency, Urinary incontinence, Urgency, Hematuria, Dysuria, Nocturia, Penile Discharge, Testicular Pain, Testicular Swelling Musculoskeletal: DENIES: Joint pain, Muscle aches, Stiffness, Joint Swelling, Back pain, Neck pain Integumentary: DENIES: Abnormal pigmentation, Nail changes, Pruritus, Rash Hematologic/lymphatic: DENIES: Bruising, Lymphadenopathy Immunologic/allergic: DENIES: Eczema, Urticaria Neurologic: DENIES: Abnormal gait, Headache, Localized weakness, Paresthesias, Seizures, Speech Problems, Tremor, Poor Balance Psychiatric: COMPLAINS OF: Hallucinations, DENIES: Anxiety, Confusion, Mood changes, Depression, Agitation, Suicidal Ideation, Homicidal Ideation, Delusions Past Family Social History Coded Allergies: *MDRO Multi-Drug Resistant Organism (Verified Allergy, Unknown, 02/06/17) MRSA benazepril (Unverified Adverse Reaction, Intermediate, Cough, 02/06/17) captopril (Unverified Adverse Reaction, Intermediate, Cough, 02/06/17) enalaprilat (Unverified Adverse Reaction, Intermediate, Cough, 02/06/17) fosinopril (Unverified Adverse Reaction, Intermediate, Cough, 02/06/17) lisinopril (Unverified Adverse Reaction, Intermediate, Cough, 02/06/17) quinapril (Unverified Adverse Reaction, Intermediate, Cough, 02/06/17) Reported Medications Temazepam (Temazepam) 15 Mg Cap, 15 MG PO HS Y for INSOMNIA, CAP 0 Refills 02/06/17 Amlodipine (Amlodipine) 10 Mg Tab, 10 MG PO DAILY for Blood Pressure Management , TAB 0 Refills 02/06/17 Multiple Vitamins W/ Minerals (Preservision Areds) 1 Tab, 2 TAB PO DAILY for Nutritional Supplement, TAB 0 Refills 10/13/16 Dorzolamide Opth Drops (Dorzolamide Opth Drops) 2% Soln, 1 DROP RIGHT EYE BID for Glaucoma, #1 BOTTLE 0 Refills 10/13/16 Latanoprost Opth Drops (Latanoprost Opth Drops) 0.005% Drops, 1 DROP RIGHT EYE HS for Glaucoma, #2.5 ML 0 Refills Refrigerate until opened. 10/13/16 Insulin Glargine Inj (Lantus Inj) 1,000 Unit/10 Ml Vial, 30 UNITS SQ HS for Blood Sugar Management, VIAL 0 Refills 10/13/16 Insulin Glargine Inj (Lantus Inj) 1,000 Unit/10 Ml Vial, 25 UNITS SQ DAILY for Blood Sugar Management, VIAL 0 Refills 10/13/16 Current Medications Medications (Trade) Dose Ordered Sig/Myrna Route Start Time Stop Time Status Last Admin Potassium Chloride/Sodium Chloride 1,000 ml @ 84 mls/hr [id number] IV 02/06/17 19:45 02/07/17 09:06 (NS Flush) 2 ml UNSCH PRN IV FLUSH 02/06/17 19:45 (NS Flush) 2 ml BID IV FLUSH 02/06/17 21:00 (Tylenol) 650 mg Q4H PRN PO 02/06/17 19:45 (Zofran Inj) 4 mg Q6H PRN IVP 02/06/17 19:45 (Heparin Inj) 5,000 units Q8H SQ 02/06/17 22:00 02/07/17 05:24 (Narcan Inj) 0.4 mg UNSCH PRN IV PUSH 02/06/17 19:45 (Milk Of Magnesia Liq) 30 ml Q12H PRN PO 02/06/17 19:45 (Senokot) 17.2 mg Q12H PRN PO 02/06/17 19:45 (Dulcolax Supp) 10 mg DAILY PRN RECTAL 02/06/17 19:45 (Lactulose Liq) 30 ml DAILY PRN PO 02/06/17 19:45 (D50w (Vial) Inj) 50 ml UNSCH PRN IV PUSH 02/06/17 19:45 (Glucagon Inj) 1 mg UNSCH PRN OTHER 02/06/17 19:45 (NovoLOG SUPPLEMENTAL SCALE) 1 ACHS SLIDING SCALE SQ 02/06/17 21:00 02/06/17 21:00 (Apresoline Inj) 10 mg Q6H PRN IV PUSH 02/06/17 19:45 02/07/17 05:24 Ceftriaxone Sodium 1000 mg/ Sodium Chloride 100 ml @ 200 mls/hr Q24H IV 02/07/17 20:00 (Norvasc) 10 mg DAILY PO 02/07/17 09:00 Future Hold 02/07/17 08:12 (Trusopt 2% Opth Soln) 1 drop BID RIGHT EYE 02/06/17 21:00 02/07/17 12:36 (Xalatan 0.005% Opth Soln) 1 drop HS RIGHT EYE 02/06/17 21:00 (Restoril) 15 mg HS PRN PO 02/06/17 20:00 (Levemir Inj) 25 units DAILY SQ 02/07/17 09:00 02/07/17 08:13 (Levemir Inj) 30 units HS SQ 02/06/17 21:00 02/06/17 21:00 (Tums Chew) 500 mg Q12HR CHEW 02/06/17 21:00 02/07/17 08:12 (Catapres) 0.1 mg Q6H PRN PO 02/07/17 08:45 (Mag-Ox) 800 mg Q12HR PO 02/07/17 12:00 Magnesium Sulfate/ Dextrose 100 ml @ 100 mls/hr Q1H IV 02/07/17 12:00 02/07/17 13:59 02/07/17 12:53 Social History Patient was born and raised in [place], he lives in [place] alone, he is , supported by snf benefits. Her highest level of education is some college Patient's Strengths (min. 2) Insight of perceptual disturbances Physical Exam Vital Signs Vital Signs Date Time Temp Pulse Resp B/P (MAP) Pulse Ox O2 Delivery O2 Flow Rate FiO2 02/07/17 11:17 Room Air 02/07/17 08:00 98.0 110 20 168/73 (104) 96 I/O 02/07/17 02/07/17 02/08/17 08:00 16:00 00:00 Intake Total 681 ml Balance 681 ml Lab Results Test 02/06/17 17:30 02/07/17 08:00 White Blood Count 5.2 TH/MM3 4.8 TH/MM3 Red Blood Count 2.89 MIL/MM3 3.01 MIL/MM3 Hemoglobin 8.9 GM/DL 8.9 GM/DL Hematocrit 26.1 % 26.9 % Mean Corpuscular Volume 90.4 FL 89.6 FL Mean Corpuscular Hemoglobin 30.9 PG 29.5 PG Mean Corpuscular Hemoglobin Concent 34.2 % 32.9 % Red Cell Distribution Width 21.7 % 21.6 % Platelet Count 227 TH/MM3 309 TH/MM3 Mean Platelet Volume 8.4 FL 8.1 FL Neutrophils (%) (Auto) 67.1 % 58.9 % Lymphocytes (%) (Auto) 13.3 % 20.7 % Monocytes (%) (Auto) 17.8 % 18.7 % Eosinophils (%) (Auto) 1.4 % 1.3 % Basophils (%) (Auto) 0.4 % 0.4 % Neutrophils # (Auto) 3.5 TH/MM3 2.8 TH/MM3 Lymphocytes # (Auto) 0.7 TH/MM3 1.0 TH/MM3 Monocytes # (Auto) 0.9 TH/MM3 0.9 TH/MM3 Eosinophils # (Auto) 0.1 TH/MM3 0.1 TH/MM3 Basophils # (Auto) 0.0 TH/MM3 0.0 TH/MM3 CBC Comment DIFF FINAL DIFF FINAL Differential Comment Prothrombin Time 10.8 SEC Prothromb Time International Ratio 1.0 RATIO Activated Partial Thromboplast Time 20.6 SEC Urine Color YELLOW Urine Turbidity HAZY Urine pH 6.5 Urine Specific [place] 1.025 Urine Protein GREATER THAN 600 mg/dL Urine Glucose (UA) 300 mg/dL Urine Ketones TRACE mg/dL Urine Occult Blood MOD Urine Nitrite NEG Urine Bilirubin NEG Urine Urobilinogen LESS THAN 2.0 MG/DL Urine Leukocyte Esterase NEG Urine RBC 4 /hpf Urine WBC 5 /hpf Urine WBC Clumps RARE Urine Bacteria OCC /hpf Urine Hyaline Casts 3 /lpf Urine Granular Casts 3 /lpf Urine Mucus FEW /lpf Microscopic Urinalysis Comment CULTURE INDICATED Blood Urea Nitrogen 14 MG/DL 15 MG/DL Creatinine 0.85 MG/DL 1.01 MG/DL Random Glucose 141 MG/DL 80 MG/DL Total Protein 4.0 GM/DL 5.2 GM/DL Albumin 1.8 GM/DL Calcium Level 5.3 MG/DL 7.1 MG/DL Alkaline Phosphatase 56 U/L Aspartate Amino Transf (AST/SGOT) 17 U/L Alanine Aminotransferase (ALT/SGPT) 9 U/L Total Bilirubin 0.4 MG/DL Sodium Level 143 MEQ/L 142 MEQ/L Potassium Level 2.6 MEQ/L 3.4 MEQ/L Chloride Level 116 MEQ/L 111 MEQ/L Carbon Dioxide Level 18.3 MEQ/L 21.0 MEQ/L Anion Gap 9 MEQ/L 10 MEQ/L Estimat Glomerular Filtration Rate 88 ML/MIN 72 ML/MIN Protein Corrected Calcium 6.6 MG/DL 8.1 MG/DL Total Creatine Kinase 157 U/L Creatine Kinase MB 3.2 NG/ML Troponin I 0.05 NG/ML Magnesium Level 0.9 MG/DL Date/Time Source Procedure Growth Status 02/06/17 17:30 Urine Random Urine Urine Culture Pending Worksheet Mental Status Examination Appearance: Appropriate Consciousness: Alert Orientation: x4 Motor Activity: Normal gait Speech: Unremarkable Language: Adequate Fund of Knowledge: Adequate Attention and Concentration: Adequate Memory: Unremarkable Mood: Appropriate Affect: Appropriate Thought Process & Associations: Intact Thought Content: Appropriate Hallucination Type: None, Visual Delusion Type: None Suicidal Ideation: No Suicidal Plan: No Suicidal Intention: No Homicidal Ideation: No Homicidal Plan: No Homicidal Intention: No Insight: Adequate Judgment: Adequate Assessment & Plan Problem List: (1) Unspecified psychosis ICD Codes: F29 - Unspecified psychosis not due to a substance or known physiological condition Assessment & Plan: The patient presents with 2 weeks of increased in severity, intensity and frequency episodes of visual hallucinations. Hallucinations are prescribed as seeing people and animals walking close to the patient, visual hallucinations are usually mute, very vivid colors, friendly, no anxiety provoking, patient tends to keep a good insight of the nature of this perceptual disturbances. Patient denies auditory hallucinations, he denies suicidal and homicidal ideation. Patient denies depressive symptoms, anxiety symptoms of sarai. She is fully oriented 3, without any attention deficit, no fluctuation of consciousness, no paranoia, no delirium, disorganized behavior or thoughts, agitation or aggressive behavior present. 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 He does not meet criteria for involuntary admission at this moment. If visual hallucinations progress, become anxiety provoking, disruptive or scary, patient might need admission in psychiatry. Will start Risperdal 0.25 mg twice a day to help with psychosis. Extensive psychoeducation provided. We'll follow-up. Assessment & Plan Estimated LOS: Aung Burt MD Feb 07, 2017 13:21
--- NOTE | 2017-02-07 13:21 | HHI.PR ---
Subjective Remarks Follow-up syncope and hallucinations. Patient not a good historian. He does not recall having syncope. Reports of visual hallucinations. Discussed with [id number], no history of memory loss and visual hallucinations. She is not able to corroborate syncope history. Discussed with RN, we need to obtain more information from neighbor as well as update medication reconciliation form. Patient denies alcohol use and recent abrupt discontinuation of medication. Objective Vitals Vital Signs Date Time Temp Pulse Resp B/P (MAP) Pulse Ox O2 Delivery O2 Flow Rate FiO2 02/07/17 11:17 Room Air 02/07/17 09:00 Room Air 02/07/17 08:00 98.0 110 20 168/73 (104) 96 02/07/17 04:00 97.1 104 18 208/93 (131) 97 188/86 (120) 02/07/17 00:00 162/80 (107) 02/07/17 00:00 97.9 67 20 192/90 (124) 95 02/06/17 20:36 98.0 110 20 160/71 (100) 98 02/06/17 20:33 101 16 153/70 (97) 99 02/06/17 19:00 99 16 215/95 (135) 99 02/06/17 18:39 98 20 221/100 (140) 96 Room Air 02/06/17 16:40 98.1 99 20 231/105 (147) 98 Room Air 02/06/17 15:45 97.9 96 16 190/86 (120) 97 I/O 02/06/17 02/06/17 02/06/17 02/07/17 02/07/17 02/07/17 07:00 15:00 23:00 07:00 15:00 23:00 Intake Total 1000 ml 681 ml Balance 1000 ml 681 ml Intake IV Total 1000 ml 681 ml Result Diagram: 02/07/17 0800 02/07/17 0800 Imaging Last Impressions Ankle X-Ray 02/06/17 1709 Signed Impressions: Service Date/Time: Monday, February 06, 2017 17:17 - CONCLUSION: Negative for fracture. Bennett Ibarra MD FACR Head CT 02/06/17 1656 Signed Impressions: Service Date/Time: Monday, February 06, 2017 17:57 - CONCLUSION: 1. 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 2. Mild, acute mastoiditis on the right. 3. Otherwise, no acute intracranial process. Ernesto Doss MD Chest X-Ray 02/06/17 1656 Signed Impressions: Service Date/Time: Monday, February 06, 2017 17:05 - CONCLUSION: Compensated cardiomegaly otherwise negative Bennett Ibarra MD FACR Carotid Artery Ultrasound 02/06/17 0000 Signed Impressions: Service Date/Time: Monday, February 06, 2017 21:43 - CONCLUSION: 1. Incomplete examination. Patient refused further imaging. 2. I'm concerned there may be occlusion of the right internal carotid artery. Dense calcification in the left carotid bulb with no Doppler evaluation of the left carotid system. 3. Antegrade flow in the right vertebral artery. Left vertebral was not imaged. Ernesto Doss MD Objective Remarks GENERAL: male lying in bed in a well-developed and well-nourished SKIN: No rashes, ecchymoses or lesions. Cool and dry. CARDIOVASCULAR: Regular rate and rhythm without murmurs, gallops, or rubs. RESPIRATORY: Clear to auscultation. Breath sounds equal bilaterally. No wheezes , rales, or rhonchi. GASTROINTESTINAL: Abdomen soft, non-tender, nondistended. No guarding. MUSCULOSKELETAL: 1+ pitting edema to the mid adams of the right lower extremity. Left lower extremity with AKA. No calf tenderness. Negative Homans sign bilaterally. NEUROLOGICAL: Awake and alert. Cranial nerves II through XII intact. Motor and sensory grossly within normal limits. Normal speech. Procedures none A/P Problem List: (1) Syncope ICD Code: R55 - Syncope and collapse Status: Acute (2) Unspecified psychosis ICD Code: F29 - Unspecified psychosis not due to a substance or known physiological condition Assessment and Plan 76-year-old male with insulin-dependent diabetes mellitus, hypertension and bladder cancer presents after syncopal episode with hypertensive crisis. 1. Syncopal episode 2. He is orthostatic(SBP 180 down to 110 upon standing) likely from dehydration. Hold Norvasc. Continue IV hydration. Repeat orthostatic vital signs Head CT without acute intracranial process Carotid ultrasound incomplete concerning for carotid stenosis obtain CTA, echocardiogram pending. Check EEG to Monitor on telemetry 2. Hypokalemia, hypomagnesemia and hypocalcemia Status post by mouth supplementation in the ED Aggressive replacement Follow-up BMP and monitor on telemetry 3. Hypertensive crisis. Resolved Monitor and adjust BP medications as needed 4. UTI Urine culture pending Rocephin 5. Insulin-dependent diabetes mellitus Continue home insulin SSI 6. Bladder cancer Patient received his last chemotherapy last Monday Is scheduled to be seen at [facility] for cystectomy Oncologist is Dr. Dumont 7. Anemia H&H 8.9/26.1 At baseline Follow CBC Transfuse when necessary 8. Visual hallucination. Psychiatry has recommended Risperdal. Obtain EEG FEN NS + 40 KCl at 84 cc/hr Heart healthy diet Electrolytes: as above Heparin Discharge Planning Not ready for discharge the for discharge Akshat Dias MD Feb 07, 2017 13:21
[2017-02-07] MEDS ORDERED: IOHEXOL 350 MG/ML 10 ML VIAL (for RAD DIAG) IVCONTRAST ONE (14:31)
[2017-02-07] MEDS: risperiDONE 0.25 MG TAB PO SCH ×2 (15:00→23:19)
[2017-02-07] MEDS: MAGNESIUM OXIDE 400 MG TAB PO SCH ×2 (15:00→23:19)
--- NOTE | 2017-02-07 15:03 | RADRPT ---
EXAM DATE/TIME: 02/07/2017 14:14 [place] COMPARISON: CT BRAIN W/O CONTRAST, February 06, 2017, 17:57. INDICATIONS : Thrombosis. IV CONTRAST: 75 cc Omnipaque 350 (iohexol) IV RADIATION DOSE: 27.31 CTDIvol (mGy) MEDICAL HISTORY : Cerebrovascular disease. Cardiovascular disease Diabetes mellitus type 2. SURGICAL HISTORY : Cholecystectomy. ENCOUNTER: Initial ACUITY: 1 day PAIN SCALE: 0/10 LOCATION: cranial Elevated flow velocities and ICA/CCA ratios have been found to correlate with increased degrees of vessel stenosis, calculated as percentage of diameter relative to a normal segment of distal ICA/CCA. TECHNIQUE: Volumetric scanning was performed using a multirow detector CT scanner. The data was post processed with a variety of visualization algorithms including full-volume maximum intensity projection, multip lanar sliding thin-slab reformation, curved-planar reformation, and surface-rendering techniques. Us ing automated exposure control and adjustment of the mA and/or kV according to patient size, radiatio n dose was kept as low as reasonably achievable to obtain optimal diagnostic quality images. DICOM f ormat image data is available electronically for review and comparison. FINDINGS: AORTIC ARCH: There is a three-vessel origin of the great vessels from the aorta. No evidence of ostial narrowing. RIGHT CAROTID: There is mild eccentric atherosclerotic plaque involving the proximal right common carotid artery. Th ere has been previous right carotid endarterectomy with no evidence of significant recurrent bifurcat ion stenosis. There is moderate eccentric stenosis of the high cervical internal carotid artery leadi ng into the petrous carotid with 60-70% stenotic narrowing present in this region. LEFT CAROTID: Moderate eccentric plaquing involving the left common carotid artery in the low neck with approximate ly 50% stenotic narrowing present. Moderate densely calcific plaque present involving the left caroti d bulb and ICA origin with only a very mild degree of relative stenotic narrowing beyond which the le ft ICA regains normal caliber and is thereafter widely patent to the skull base. VERTEBRALS: Moderate eccentric stenotic narrowing involving the proximal left vertebral artery with greater than 50% eccentric stenosis present over short length. The vertebrals are elsewhere fairly symmetric and p atent throughout CONCLUSION: No evidence of significant carotid bifurcation stenosis on either side. There is moderate stenotic di sease involving the lower cervical common carotid artery on the left, the high cervical and proximal petrous internal carotid artery on the right and the proximal vertebral artery on the left. Luke Bourne MD on February 07, 2017 at 14:52 Board Certified Radiologist. This report was verified electronically.
--- NOTE | 2017-02-07 17:41 | EKG ---
Date Performed: 02/06/2017 Time Performed: 17:34:37 PTAGE: 76 years EKG: Sinus rhythm WITH OCCASIONAL SUPRAVENTRICULAR PREMATURE COMPLEXES SEPTAL MYOCARDIAL INFARCTION MODERATE T-WAVE AB NORMALITY, CONSIDER LATERAL ISCHEMIA Since previous tracing, no significant change noted ABNORMAL ECG PREVIOUS TRACING : 02/26/2013 09.49 DOCTOR: Daria Linn Interpretating Date/Time 02/07/2017 17:40:15
--- NOTE | 2017-02-07 17:44 | ECHRPT ---
Indication: syncope CONCLUSIONS Normal left ventricular size. Wall thickness is normal. The left ventricular systolic function is low normal with an estimated ejection fraction in the rang e of 50- 55%. No wall motion abnormalities. Mild to moderate mitral annular calcification is present. Trace mitral valve regurgitation. Slight aortic valve sclerosis is present. Trace aortic valve regurgitation. BP: 188 / 86 HR: 104 Rhythm: Atrial fibrillation MEASUREMENTS (Male / Female) Normal Values Technical Quality:Good 2D ECHO LV Diastolic Diameter PLAX 4.9 cm 4.2 - 5.9 / 3.9 - 5.3 cm LV Systolic Diameter PLAX 4.1 cm IVS Diastolic Thickness 1.3 cm 0.6 - 1.0 / 0.6 - 0.9 cm LVPW Diastolic Thickness 0.8 cm 0.6 - 1.0 / 0.6 - 0.9 cm LV Relative Wall Thickness 0.4 RV Internal Dim ED PLAX 2.0 cm LA Systolic Diameter LX 3.4 cm 3.0 - 4.0 / 2.7 - 3.8 cm M-MODE Aortic Root Diameter MM 3.6 cm AV Cusp Separation MM 2.1 cm DOPPLER Mitral E Point Velocity 174.0 cm/s TR Peak Velocity 311.0 cm/s TR Peak Gradient 38.7 mmHg Right Atrial Pressure 5.0 mmHg Pulmonary Artery Systolic Pressu 43.7 mmHg Right Ventricular Systolic Press 43.7 mmHg FINDINGS LEFT VENTRICLE Normal left ventricular size. Wall thickness is normal. The left ventricular systolic function is low normal with an estimated ejection fraction in the rang e of 50- 55%. No wall motion abnormalities. RIGHT VENTRICLE Normal right ventricular size and systolic function. LEFT ATRIUM The left atrial size is normal. RIGHT ATRIUM The right atrial size is normal. ATRIAL SEPTUM Normal atrial septal thickness without atrial level shunting by limited color doppler interrogation. AORTA The aortic root and proximal ascending aorta are normal in size on limited imaging. MITRAL VALVE Mild to moderate mitral annular calcification is present. Trace mitral valve regurgitation. AORTIC VALVE Slight aortic valve sclerosis is present. Trace aortic valve regurgitation. TRICUSPID VALVE Structurally normal tricuspid valve. No tricuspid valve stenosis or regurgitation. PULMONARY VALVE No pulmonary valve regurgitation or stenosis. VESSELS The inferior vena cava is normal in size. PERICARDIUM There is a trivial pericardial effusion present. No hemodynamically significant echocardiographic features were observed (no pre-tamponade physiology). Torres Rivera MD (Electronically Signed) Final Date:07 February 2017 17:43
[2017-02-07] MEDS ORDERED: cefTRIAXone INJ 1,000 MG in SODIUM CHLORIDE 0.9% INJ 100 ML IV SCH (20:00)
[2017-02-07] MEDS: INSULIN DETEMIR 100 UNITS/ML VIAL SQ SCH (21:00)
[2017-02-08] VITALS (10 sets, daily range): BP systolic 148–216; BP diastolic 70–100; PULSE 99–114; RESP 17–20; TEMP 97.2–98.3; O2SAT 90–97
[2017-02-08] MEDS: NS + KCL 40 MEQ INJ 1,000 ML IV SCH ×2 (04:04→18:07)
[2017-02-08] MEDS ORDERED: risperiDONE ODT 0.25 MG TAB PO ONE (04:45)
[2017-02-08] MEDS: HEPARIN SODIUM - SQ 10,000 UNITS/ML VIAL SQ SCH ×3 (06:00→22:13)
[2017-02-08 07:47] LABS: AUTOMATED NEUTROPHIL # 3.6 TH/MM3 (1.8-7.7); BASOPHIL % 0.3 % (0.0-2.0); EOSINOPHIL # 0.1 TH/MM3 (0-0.4); EOSINOPHIL % 1.3 % (0.0-4.0); HEMATOCRIT 25.9 % (39.0-51.0); HEMO FLAGS DIFF FINAL; LYMPH % 18.2 % (9.0-44.0); LYMPHOCYTE # 1.1 TH/MM3 (1.0-4.8); MEAN CORPUSCULAR HGB CONC 34.1 % (32.0-36.0); MONO % 19.3 % (0.0-8.0); NEUT % 60.9 % (16.0-70.0); PLATELET COUNT 337 TH/MM3 (150-450); RED BLOOD COUNT 2.85 MIL/MM3 (4.50-5.90); RED CELL DISTRIBUTION WIDTH 21.6 % (11.6-17.2); WHITE BLOOD COUNT 5.9 TH/MM3 (4.0-11.0)
--- NOTE | 2017-02-08 07:48 | HHI.PR ---
Subjective Remarks Follow-up syncope and hallucinations. Paged by the nurse patient with low BS will hold Levemir. Patient is not eating well. He is pleasantly confused, however denies having any chest pain, sob, n/v/d/c. No sweating. Says he doesn't have much appetite. Will remove diabetic diet. Discussed with the nurse patient was noted with hallucinations earlier in the morning. Objective Vitals Vital Signs Date Time Temp Pulse Resp B/P (MAP) Pulse Ox O2 Delivery O2 Flow Rate FiO2 02/08/17 04:00 97.2 99 20 173/70 (104) 97 02/08/17 00:00 98.3 111 18 216/90 (132) 96 153/78 (103) Manual Cuff/Auscultation 02/07/17 20:45 Room Air 02/07/17 20:00 98.6 103 20 188/83 (118) 97 160/89 (112) 02/07/17 18:03 112 02/07/17 16:38 Room Air 02/07/17 16:00 97.0 110 20 105/50 (68) 94 02/07/17 13:51 111 02/07/17 13:43 Room Air 02/07/17 12:00 106 16 162/77 (105) 95 112/61 (78) 118/56 (76) 02/07/17 11:17 Room Air 02/07/17 09:00 Room Air 02/07/17 08:00 98.0 110 20 168/73 (104) 96 I/O 02/07/17 02/07/17 02/07/17 02/08/17 02/08/17 02/08/17 07:00 15:00 23:00 07:00 15:00 23:00 Intake Total 681 ml 480 ml 1331 ml Output Total 1050 ml Balance 681 ml -570 ml 1331 ml Intake Oral 480 ml 60 ml IV Total 681 ml 1271 ml Output Urine Total 1050 ml Bladder Scan Volume Amount 86 ml # Voids 2 1 # Bowel Movements 1 Result Diagram: 02/08/17 0625 02/07/17 0800 Imaging Last Impressions Neck CTA 02/07/17 0000 Signed Impressions: Service Date/Time: Tuesday, February 07, 2017 14:14 - CONCLUSION: No evidence of significant carotid bifurcation stenosis on either side. There is moderate stenotic disease involving the lower cervical common carotid artery on the left , the high cervical and proximal petrous internal carotid artery on the right and the proximal vertebral artery on the left. Luke Bourne MD Ankle X-Ray 02/06/17 1709 Signed Impressions: Service Date/Time: Monday, February 06, 2017 17:17 - CONCLUSION: Negative for fracture. Bennett Ibarra MD FACR Head CT 02/06/17 1656 Signed Impressions: Service Date/Time: Monday, February 06, 2017 17:57 - CONCLUSION: 1. 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 2. Mild, acute mastoiditis on the right. 3. Otherwise, no acute intracranial process. Ernesto Doss MD Chest X-Ray 02/06/176 Signed Impressions: Service Date/Time: Monday, February 06, 2017 17:05 - CONCLUSION: Compensated cardiomegaly otherwise negative Bennett Ibarra MD FACR Carotid Artery Ultrasound 02/06/17 0000 Signed Impressions: Service Date/Time: Monday, February 06, 2017 21:43 - CONCLUSION: 1. Incomplete examination. Patient refused further imaging. 2. I'm concerned there may be occlusion of the right internal carotid artery. Dense calcification in the left carotid bulb with no Doppler evaluation of the left carotid system. 3. Antegrade flow in the right vertebral artery. Left vertebral was not imaged. Ernesto Doss MD Objective Remarks GENERAL: male lying in bed in a well-developed and well-nourished, pleasantly confused. SKIN: No rashes, ecchymoses or lesions. Cool and dry. CARDIOVASCULAR: Regular rate and rhythm without murmurs, gallops, or rubs. RESPIRATORY: Clear to auscultation. Breath sounds equal bilaterally. No wheezes , rales, or rhonchi. GASTROINTESTINAL: Abdomen soft, non-tender, nondistended. No guarding. MUSCULOSKELETAL: 1+ pitting edema to the mid adams of the right lower extremity. Left lower extremity with AKA. No calf tenderness. Negative Homans sign bilaterally. NEUROLOGICAL: Awake and alert. Cranial nerves II through XII intact. Motor and sensory grossly within normal limits. Normal speech. Procedures none A/P Problem List: (1) Syncope ICD Code: R55 - Syncope and collapse Status: Acute (2) Unspecified psychosis ICD Code: F29 - Unspecified psychosis not due to a substance or known physiological condition Assessment and Plan 76-year-old male with insulin-dependent diabetes mellitus, hypertension and bladder cancer presents after syncopal episode with hypertensive crisis. Syncopal episode 2. He is orthostatic (SBP 180 down to 110 upon standing) likely from dehydration. Hold Norvasc. Continue IV hydration. Repeat orthostatic vital signs Head CT without acute intracranial process Carotid ultrasound incomplete concerning for carotid stenosis obtain CTA, echocardiogram pending. Check EEG to Monitor on telemetry Hypokalemia, hypomagnesemia and hypocalcemia Status post by mouth supplementation in the ED Aggressive replacement Follow-up BMP and monitor on telemetry Hypertensive crisis. Resolved Monitor and adjust BP medications as needed UTI Urine culture pending Rocephin Insulin-dependent diabetes mellitus Continue home insulin SSI Bladder cancer Patient received his last chemotherapy last Monday Is scheduled to be seen at [facility] for cystectomy Oncologist is Dr. Dumont Anemia H&H 8.9/26.1 At baseline Follow CBC Transfuse when necessary Visual hallucination. Psychiatry has recommended Risperdal. Obtain EEG FEN NS + 40 KCl at 84 cc/hr Heart healthy diet Electrolytes: as above Heparin Discharge Planning Not ready for discharge the for discharge Consult palliative care for goals of care Suzanna Koehler MD Feb 08, 2017 07:48
[2017-02-08] MEDS: INSULIN ASPART SUPPLEMENTAL SCALE SQ SCH ×4 (08:00→22:12)
[2017-02-08 08:15] LABS: BICARBONATE 22.3 MEQ/L (21.0-32.0); MAGNESIUM 1.5 MG/DL (1.5-2.5); POTASSIUM 4.5 MEQ/L (3.5-5.1)
[2017-02-08] MEDS: MAGNESIUM OXIDE 400 MG TAB PO SCH ×2 (08:24→21:45)
[2017-02-08] MEDS: SODIUM CHLORIDE 0.9% FLUSH 10 ML FLUSH IV FLUSH SCH ×2 (08:24→21:00)
[2017-02-08] MEDS: risperiDONE 0.25 MG TAB PO SCH (08:24)
[2017-02-08] MEDS: CALCIUM CARBONATE 500 MG CHEWABLE TAB CHEW SCH ×2 (08:24→21:45)
[2017-02-08] MEDS: DORZOLAMIDE 2% OPTH SOLN 200 DROP/10 ML BTLO RIGHT EYE SCH ×2 (08:25→21:00)
--- NOTE | 2017-02-08 12:39 | HHI.PYPN ---
Subjective Remarks The patient was seen today for psychiatric reevaluation. Chart was reviewed. Case discussed with nurse in charge. Patient was found eating his lunch, calm and cooperative. He reports that he feels much better today. Patient says the last night he was confused and having active visual hallucinations of people coming inside his room. Patient today is fully oriented 3, no agitation, no aggressive behavior, no confusion observed. As per conversation with nursing charge, the patient last night had to be given double doses of Risperdal due to restlessness, agitation, confusion and disorganization. Review of Systems Psychiatric: COMPLAINS OF: Hallucinations Except as stated in HPI: all other systems reviewed are Neg Mental Status Examination Appearance: Appropriate Consciousness: Alert Orientation: x4 Motor Activity: Normal gait Speech: Unremarkable Language: Adequate Fund of Knowledge: Adequate Attention and Concentration: Adequate Memory: Unremarkable Mood: Appropriate Affect: Appropriate Thought Process & Associations: Intact Thought Content: Appropriate Hallucination Type: None, Visual Delusion Type: None Suicidal Ideation: No Suicidal Plan: No Suicidal Intention: No Homicidal Ideation: No Homicidal Plan: No Homicidal Intention: No Insight: Adequate Judgment: Adequate Results Labs Test 02/07/17 13:20 02/08/17 06:25 Urine Opiates Screen NEG Urine Barbiturates Screen NEG Urine Amphetamines Screen NEG Urine Benzodiazepines Screen NEG Urine Cocaine Screen NEG Urine Cannabinoids Screen NEG White Blood Count 5.9 TH/MM3 Red Blood Count 2.85 MIL/MM3 Hemoglobin 8.8 GM/DL Hematocrit 25.9 % Mean Corpuscular Volume 91.0 FL Mean Corpuscular Hemoglobin 31.0 PG Mean Corpuscular Hemoglobin Concent 34.1 % Red Cell Distribution Width 21.6 % Platelet Count 337 TH/MM3 Mean Platelet Volume 8.0 FL Neutrophils (%) (Auto) 60.9 % Lymphocytes (%) (Auto) 18.2 % Monocytes (%) (Auto) 19.3 % Eosinophils (%) (Auto) 1.3 % Basophils (%) (Auto) 0.3 % Neutrophils # (Auto) 3.6 TH/MM3 Lymphocytes # (Auto) 1.1 TH/MM3 Monocytes # (Auto) 1.1 TH/MM3 Eosinophils # (Auto) 0.1 TH/MM3 Basophils # (Auto) 0.0 TH/MM3 CBC Comment DIFF FINAL Differential Comment Blood Urea Nitrogen 14 MG/DL Creatinine 0.97 MG/DL Random Glucose 88 MG/DL Calcium Level 7.7 MG/DL Magnesium Level 1.5 MG/DL Sodium Level 140 MEQ/L Potassium Level 4.5 MEQ/L Chloride Level 112 MEQ/L Carbon Dioxide Level 22.3 MEQ/L Anion Gap 6 MEQ/L Estimat Glomerular Filtration Rate 75 ML/MIN Date/Time Source Procedure Growth Status 02/06/17 17:30 Urine Random Urine Urine Culture - Final NO GROWTH IN 48 HOURS. Complete Vitals/IOs Vital Signs Date Time Temp Pulse Resp B/P (MAP) Pulse Ox O2 Delivery O2 Flow Rate FiO2 02/08/17 08:30 Nasal Cannula 2.00 02/08/17 08:00 105 02/08/17 08:00 97.7 17 183/70 (107) 90 Intake and Output 02/08/17 02/08/17 02/09/17 08:00 16:00 00:00 Intake Total 1331 ml Balance 1331 ml Assessment & Plan Problem List: (1) Unspecified psychosis ICD Codes: F29 - Unspecified psychosis not due to a substance or known physiological condition Assessment & Plan: A she continues to have active visual hallucinations, episodic confusion and agitation. We'll increase Risperdal to 0.5 mg twice a day, will add Haldol 2 mg IM every 8 hours when necessary aggressive behavior and agitation. Assessment & Plan Estimated LOS: days Justification for Cont. Inpt. Patient might benefit of psychiatric admission for treatment of visual hallucinations. We'll follow-up in the floor. Aung Cuevas MD Feb 08, 2017 12:39
--- NOTE | 2017-02-08 14:59 | PD.CONS ---
Consult Service Palliative Care Consult Requested By Dr. Koehler . Primary Care Physician Pao Castaneda MD . Reason for Consultation a. To assist with evaluation and management of symptoms including: Confusion, hallucinations, weakness b. To assist medical decision maker(s) with: better understanding of current medical conditions; weighing benefits/burdens of medical treatment options; making medical treatment decisions. . HPI History of Present Illness This 76-year-old male, with a past history of peripheral artery disease, carotid artery disease, invasive bladder cancer, diabetes, and hypertension, reportedly had "weak spells" for a couple days prior to being admitted here on 02/06/17. The patient does not really recall the episodes, and apparently there is some thought that he had actual syncope. His friends had noticed that his gait seemed more unsteady than usual the few days prior to admission, but that is somewhat difficult to evaluate since he has a left leg prosthesis and uses a cane to ambulate. In the emergency department, findings included: * Alert, some confusion * Temp 98.1, pulse 99, respirations 16, blood pressure 215/95, oxygen saturation 99% on room air * White count 5.2, hemoglobin 8.9 * Sodium 143, creatinine 0.85, albumin 1.8, calcium 5.1, potassium 2.6 * Urinalysis with a few white cells, culture ordered * CT of the head revealed no acute findings * Echocardiogram indicated an ejection fraction of 50-55%. After admission to the hospital, and the initiation of treatments to correct the electrolyte imbalances, the patient remained somewhat confused. In addition , he was having non-frightening visual hallucinations, including people and other objects. He was evaluated by psychiatry, and was begun on Risperdal on ; the dose was increased on 02/08/17. The patient reports that he "feels better" but that he is still somewhat weak and is still having some visual hallucinations (including while I am in the room). He does acknowledge that he is "not thinking straight," and his sckwsi-cf-xal who is present at this time reports that that has never been a problem for him before. The patient's urine culture has had no growth now for 48 hours. He has remained afebrile, and has had no leukocytosis. His potassium has normalized to 4.5, and his calcium has improved to 7.7. He underwent a neck CTA yesterday : + carotid stenosis ---> L common, R internal, and also L vertebral arteries. The patient's bladder cancer has been treated with 3 completed cycles of cisplatin and Gemzar, the final dosing last week, and he is now scheduled to go to the [facility] will be considered for prostatocystectomy. It is noted that he had already had prior radiation for prostate cancer in 2006. The patient reports that he has back pain off and on for the last several months , worse when he is trying to walk, better while he is lying in the bed. He was taking some pain medicine at home, but he is not sure what medicine that was. Palliative Care was consulted to assist with symptom management, and to enter into discussions with patient and family/friends regarding his illnesses, his treatments, his prognosis, and the benefits and burdens of the various treatment options going forward. . Function/Cognitive Trajectory The patient had been living alone and functioning independently. He does have some difficulty getting around due to the fact that he is s/p left BKA, and he uses a prosthesis and a cane to ambulate at home. He reports that he had some falls nearly a year ago, "but that's when I was drinking too much beer." He has not been drinking much in recent months. . Review of Systems ROS Limitations: Altered Mental Status Constitutional: COMPLAINS OF: Fatigue, DENIES: Weight loss Endocrine: DENIES: Polyuria Eyes: DENIES: Eye inflammation Ears, nose, mouth, throat: DENIES: Epistaxis Respiratory: DENIES: Cough, Shortness of breath Cardiovascular: COMPLAINS OF: Syncope (uncertain), DENIES: Chest pain, Palpitations, Dyspnea on Exertion Gastrointestinal: DENIES: Black stools, Bloody stools, Constipation, Vomiting Genitourinary: DENIES: Hematuria Integumentary: DENIES: Rash Hematologic/Lymphatics: DENIES: Bruising Immunologic/Allergic: DENIES: Urticaria Neurologic: COMPLAINS OF: Abnormal gait (chronic), Poor Balance (chronic), DENIES: Headache, Localized weakness, Paresthesias, Seizures, Speech Problems, Tremor Psychiatric: COMPLAINS OF: Confusion, Depression, Hallucinations (visual), DENIES: Agitation, Suicidal Ideation, Homicidal Ideation, Delusions Past Family Social History Coded Allergies: *MDRO Multi-Drug Resistant Organism (Verified Allergy, Unknown, 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 benazepril (Unverified Adverse Reaction, Intermediate, Cough, 02/06/17) captopril (Unverified Adverse Reaction, Intermediate, Cough, 02/06/17) enalaprilat (Unverified Adverse Reaction, Intermediate, Cough, 02/06/17) fosinopril (Unverified Adverse Reaction, Intermediate, Cough, 02/06/17) lisinopril (Unverified Adverse Reaction, Intermediate, Cough, 02/06/17) quinapril (Unverified Adverse Reaction, Intermediate, Cough, 02/06/17) Past Medical History * Bladder cancer, July 2016, high-grade muscle invasive urothelial cancer * Status post recent completion of cisplatin and Gemzar cycles * Anemia * History of alcohol abuse last year and in previous years, only occasional alcohol now * Insulin-dependent diabetes mellitus * Hypertension * Glaucoma * History of prostate cancer status post radiation * Hyperlipidemia * Remote history of CVA * Depression . 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 Reported Medications Reported Meds & Active Scripts Active Reported Temazepam 15 Mg Cap 15 Mg PO HS PRN Amlodipine (Amlodipine Besylate) 10 Mg Tab 10 Mg PO DAILY Preservision Areds (Multiple Vitamins W/ Minerals) 1 Tab 2 Tab PO DAILY Dorzolamide Opth Drops (Dorzolamide HCl) 2% Soln 1 Drop RIGHT EYE BID Latanoprost Opth Drops (Latanoprost) 0.005% Drops 1 Drop RIGHT EYE HS Refrigerate until opened. Lantus Inj (Insulin Glargine) 1,000 Unit/10 Ml Vial 30 Units SQ HS Lantus Inj (Insulin Glargine) 1,000 Unit/10 Ml Vial 25 Units SQ DAILY . Current Medications Medications (Trade) Dose Ordered Sig/Myrna Route Start Time Stop Time Status Last Admin Potassium Chloride/Sodium Chloride 1,000 ml @ 84 mls/hr [id number] IV 02/06/17 19:45 02/08/17 04:04 (NS Flush) 2 ml UNSCH PRN IV FLUSH 02/06/17 19:45 (NS Flush) 2 ml BID IV FLUSH 02/06/17 21:00 02/07/17 21:00 (Tylenol) 650 mg Q4H PRN PO 02/06/17 19:45 (Zofran Inj) 4 mg Q6H PRN IVP 02/06/17 19:45 (Heparin Inj) 5,000 units Q8H SQ 02/06/17 22:00 02/08/17 06:00 (Narcan Inj) 0.4 mg UNSCH PRN IV PUSH 02/06/17 19:45 (Milk Of Magnesia Liq) 30 ml Q12H PRN PO 02/06/17 19:45 (Senokot) 17.2 mg Q12H PRN PO 02/06/17 19:45 (Dulcolax Supp) 10 mg DAILY PRN RECTAL 02/06/17 19:45 (Lactulose Liq) 30 ml DAILY PRN PO 02/06/17 19:45 (D50w (Vial) Inj) 50 ml UNSCH PRN IV PUSH 02/06/17 19:45 (Glucagon Inj) 1 mg UNSCH PRN OTHER 02/06/17 19:45 (NovoLOG SUPPLEMENTAL SCALE) 1 ACHS SLIDING SCALE SQ 02/06/17 21:00 02/06/17 21:00 (Apresoline Inj) 10 mg Q6H PRN IV PUSH 02/06/17 19:45 02/07/17 05:24 Ceftriaxone Sodium 1000 mg/ Sodium Chloride 100 ml @ 200 mls/hr Q24H IV 02/07/17 20:00 02/07/17 23:31 (Norvasc) 10 mg DAILY PO 02/07/17 09:00 Future Hold 02/07/17 08:12 (Trusopt 2% Opth Soln) 1 drop BID RIGHT EYE 02/06/17 21:00 02/08/17 08:25 (Xalatan 0.005% Opth Soln) 1 drop HS RIGHT EYE 02/06/17 21:00 (Restoril) 15 mg HS PRN PO 02/06/17 20:00 (Tums Chew) 500 mg Q12HR CHEW 02/06/17 21:00 02/08/17 08:24 (Catapres) 0.1 mg Q6H PRN PO 02/07/17 08:45 (Mag-Ox) 800 mg Q12HR PO 02/07/17 12:00 02/08/17 08:24 (risperDAL) 0.5 mg Q12HR PO 02/08/17 21:00 (Haldol Inj) 2 mg Q8H PRN IM 02/08/17 12:45 Family History Father at age 84 of heart disease, and mother at age 80. . Substance Use Tobacco: Quit smoking 15 or 20 years ago Alcohol: History of abuse in past years, but patient reports that in the past 10 months he has less than one beer per day. Prescription med abuse: None Illicits: None . Psychosocial History Born and raised in [place], moved to [place] a few years ago. He lives alone. He has been 3 times, a few years ago from third . He has one child, a son Amadeo Valente living in [place]. He has a nhanof-ng-rdf Julia Zavaleta who lives here, and very close friends Denis and Donna Chambers that help him out frequently. 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 . Spiritual/Cultural Factors The patient has a Denominational background, and he has attended a local judaism intermittently. He is not affiliated with any particular judaism or clergy at this time. He is open to political researcher visits. . Living Will: Never completed Health Care Surrogate: Never completed Durable Power of Supervisor Cell Operation: Never completed Health Care Surrogate(s): The patient tells me today that he wants to a point his close friend and retired nurse Donna Chambers as his HCS. . Today's verbally stated goals: The patient definitely wants "to get better," and wants to continue with the plan to follow-up at the [facility] for probable surgery now that he is finished the scheduled chemotherapy. . Family/friends goals: His [id number] Julia is supporting his decisions . Ethical and Legal Issues There are no ethical issues that would impact his care were decision-making at this time. The patient is confused and is still having intermittent visual hallucinations, but he is aware of his malignancy, the plan for surgery, and the serious nature of it. I'm not convinced that he has total capacity for making decisions regarding complex medical issues and discussions, but he certainly has capacity to identify a health care surrogate and to participate in all forms of medical decision making in a shared manner along with his HCS. . Physical Exam Vital Signs Date Time Temp Pulse Resp B/P (MAP) Pulse Ox O2 Delivery O2 Flow Rate FiO2 02/08/17 13:31 Nasal Cannula 2.00 02/08/17 12:00 98.0 99 18 186/94 (124) 95 02/08/17 12:00 107 02/08/17 08:30 Nasal Cannula 2.00 02/08/17 08:00 105 02/08/17 08:00 97.7 105 17 183/70 (107) 90 02/08/17 04:10 104 02/08/17 04:00 97.2 99 20 173/70 (104) 97 02/08/17 00:00 98.3 111 18 216/90 (132) 96 153/78 (103) Manual Cuff/Auscultation 02/07/17 20:45 Room Air 02/07/17 20:00 98.6 103 20 188/83 (118) 97 160/89 (112) 02/07/17 18:03 112 02/07/17 16:38 Room Air 02/07/17 16:00 97.0 110 20 105/50 (68) 94 Exam CONSTITUTIONAL/GENERAL: This is an adequately nourished patient, pleasant, in no apparent distress. TUBES/LINES/DRAINS: Peripheral IV, SCDs SKIN: No jaundice, rashes, or lesions. Ecchymoses on right arm/wrist. No wounds seen anteriorly. Skin temperature appropriate. Not diaphoretic. HEAD: Atraumatic. Normocephalic. EYES: Pupils equal and round and reactive. Extraocular motions intact. No scleral icterus. No injection or drainage. Fundi not examined. ENT: Hearing grossly normal. Nose without bleeding or purulent drainage. Throat without visible erythema, exudates, masses, or lesions. NECK: Trachea midline. Supple, nontender. No palpable thyroid enlargement or nodularity. CARDIOVASCULAR: Regular rate and rhythm without murmurs, gallops, or rubs. No JVD. Peripheral pulses symmetric. RESPIRATORY/CHEST: Symmetric, unlabored respirations. Clear to auscultation. Breath sounds equal bilaterally. No wheezes, rales, or rhonchi. GASTROINTESTINAL: Abdomen soft, non-tender, nondistended. No hepato-splenomegaly , or palpable masses. No guarding. Bowel sounds present. GENITOURINARY: Without palpable bladder distension. MUSCULOSKELETAL: Extremities without clubbing, cyanosis, or edema. No joint tenderness or effusion noted. No calf tenderness. No mottling or clubbing. LYMPHATICS: No palpable cervical or supraclavicular adenopathy. NEUROLOGICAL: Awake and alert. Motor and sensory grossly within normal limits. Follows commands. He is not oriented to place, day, month, but is oriented to the year. Moves all extremities. PSYCHIATRIC: No obvious anxiety/depression. He is still having intermittent visual hallucinations that are not frightening to him. . Diagnostic Tests Laboratory Laboratory Tests Test 02/06/17 17:30 02/07/17 08:00 02/07/17 13:20 02/08/17 06:25 White Blood Count 5.2 TH/MM3 (4.0-11.0) 4.8 TH/MM3 (4.0-11.0) 5.9 TH/MM3 (4.0-11.0) Red Blood Count 2.89 MIL/MM3 (4.50-5.90) 3.01 MIL/MM3 (4.50-5.90) 2.85 MIL/MM3 (4.50-5.90) Hemoglobin 8.9 GM/DL (13.0-17.0) 8.9 GM/DL (13.0-17.0) 8.8 GM/DL (13.0-17.0) Hematocrit 26.1 % (39.0-51.0) 26.9 % (39.0-51.0) 25.9 % (39.0-51.0) Mean Corpuscular Volume 90.4 FL (80.0-100.0) 89.6 FL (80.0-100.0) 91.0 FL (80.0-100.0) Mean Corpuscular Hemoglobin 30.9 PG (27.0-34.0) 29.5 PG (27.0-34.0) 31.0 PG (27.0-34.0) Mean Corpuscular Hemoglobin Concent 34.2 % (32.0-36.0) 32.9 % (32.0-36.0) 34.1 % (32.0-36.0) Red Cell Distribution Width 21.7 % (11.6-17.2) 21.6 % (11.6-17.2) 21.6 % (11.6-17.2) Platelet Count 227 TH/MM3 (150-450) 309 TH/MM3 (150-450) 337 TH/MM3 (150-450) Mean Platelet Volume 8.4 FL (7.0-11.0) 8.1 FL (7.0-11.0) 8.0 FL (7.0-11.0) Neutrophils (%) (Auto) 67.1 % (16.0-70.0) 58.9 % (16.0-70.0) 60.9 % (16.0-70.0) Lymphocytes (%) (Auto) 13.3 % (9.0-44.0) 20.7 % (9.0-44.0) 18.2 % (9.0-44.0) Monocytes (%) (Auto) 17.8 % (0.0-8.0) 18.7 % (0.0-8.0) 19.3 % (0.0-8.0) Eosinophils (%) (Auto) 1.4 % (0.0-4.0) 1.3 % (0.0-4.0) 1.3 % (0.0-4.0) Basophils (%) (Auto) 0.4 % (0.0-2.0) 0.4 % (0.0-2.0) 0.3 % (0.0-2.0) Neutrophils # (Auto) 3.5 TH/MM3 (1.8-7.7) 2.8 TH/MM3 (1.8-7.7) 3.6 TH/MM3 (1.8-7.7) Lymphocytes # (Auto) 0.7 TH/MM3 (1.0-4.8) 1.0 TH/MM3 (1.0-4.8) 1.1 TH/MM3 (1.0-4.8) Monocytes # (Auto) 0.9 TH/MM3 (0-0.9) 0.9 TH/MM3 (0-0.9) 1.1 TH/MM3 (0-0.9) Eosinophils # (Auto) 0.1 TH/MM3 (0-0.4) 0.1 TH/MM3 (0-0.4) 0.1 TH/MM3 (0-0.4) Basophils # (Auto) 0.0 TH/MM3 (0-0.2) 0.0 TH/MM3 (0-0.2) 0.0 TH/MM3 (0-0.2) CBC Comment DIFF FINAL DIFF FINAL DIFF FINAL Differential Comment Prothrombin Time 10.8 SEC (9.8-11.6) Prothromb Time International Ratio 1.0 RATIO Activated Partial Thromboplast Time 20.6 SEC (24.3-30.1) Urine Color YELLOW (YELLW/STRAW) Urine Turbidity HAZY (CLEAR) Urine pH 6.5 (5.0-8.5) Urine Specific [place] 1.025 (1.002-1.035) Urine Protein GREATER THAN 600 mg/dL Urine Glucose (UA) 300 mg/dL (NEG) Urine Ketones TRACE mg/dL (NEG) Urine Occult Blood MOD (NEG) Urine Nitrite NEG (NEG) Urine Bilirubin NEG (NEG) Urine Urobilinogen LESS THAN 2.0 MG/DL (LESS Urine Leukocyte Esterase NEG (NEG) Urine RBC 4 /hpf (0-3) Urine WBC 5 /hpf (0-5) Urine WBC Clumps RARE (NONE) Urine Bacteria OCC /hpf (NONE) Urine Hyaline Casts 3 /lpf (RARE) Urine Granular Casts 3 /lpf (NONE) Urine Mucus FEW /lpf (OCC) Microscopic Urinalysis Comment CULTURE INDICATED Blood Urea Nitrogen 14 MG/DL (7-18) 15 MG/DL (7-18) 14 MG/DL (7-18) Creatinine 0.85 MG/DL (0.60-1.30) 1.01 MG/DL (0.60-1.30) 0.97 MG/DL (0.60-1.30) Random Glucose 141 MG/DL (74-106) 80 MG/DL (74-106) 88 MG/DL (74-106) Total Protein 4.0 GM/DL (6.4-8.2) 5.2 GM/DL (6.4-8.2) Albumin 1.8 GM/DL (3.4-5.0) Calcium Level 5.3 MG/DL (8.5-10.1) 7.1 MG/DL (8.5-10.1) 7.7 MG/DL (8.5-10.1) Alkaline Phosphatase 56 U/L (45-117) Aspartate Amino Transf (AST/SGOT) 17 U/L (15-37) Alanine Aminotransferase (ALT/SGPT) 9 U/L (12-78) Total Bilirubin 0.4 MG/DL (0.2-1.0) Sodium Level 143 MEQ/L (136-145) 142 MEQ/L (136-145) 140 MEQ/L (136-145) Potassium Level 2.6 MEQ/L (3.5-5.1) 3.4 MEQ/L (3.5-5.1) 4.5 MEQ/L (3.5-5.1) Chloride Level 116 MEQ/L (98-107) 111 MEQ/L (98-107) 112 MEQ/L (98-107) Carbon Dioxide Level 18.3 MEQ/L (21.0-32.0) 21.0 MEQ/L (21.0-32.0) 22.3 MEQ/L (21.0-32.0) Anion Gap 9 MEQ/L (5-15) 10 MEQ/L (5-15) 6 MEQ/L (5-15) Estimat Glomerular Filtration Rate 88 ML/MIN (>89) 72 ML/MIN (>89) 75 ML/MIN (>89) Protein Corrected Calcium 6.6 MG/DL (8.5-10.1) 8.1 MG/DL (8.5-10.1) Total Creatine Kinase 157 U/L (39-308) Creatine Kinase MB 3.2 NG/ML (0.5-3.6) Troponin I 0.05 NG/ML (0.02-0.05) Magnesium Level 0.9 MG/DL (1.5-2.5) 1.5 MG/DL (1.5-2.5) Urine Opiates Screen NEG (NEG) Urine Barbiturates Screen NEG (NEG) Urine Amphetamines Screen NEG (NEG) Urine Benzodiazepines Screen NEG (NEG) Urine Cocaine Screen NEG (NEG) Urine Cannabinoids Screen NEG (NEG) Result Diagram: 02/08/17 0625 02/08/17 0625 Microbiology Microbiology Date/Time Source Procedure Growth Status 02/06/17 17:30 Urine Random Urine Urine Culture - Final NO GROWTH IN 48 HOURS. Complete Imaging Last Impressions Neck CTA 02/07/17 0000 Signed Impressions: Service Date/Time: Tuesday, February 07, 2017 14:14 - CONCLUSION: No evidence of significant carotid bifurcation stenosis on either side. There is moderate stenotic disease involving the lower cervical common carotid artery on the left , the high cervical and proximal petrous internal carotid artery on the right and the proximal vertebral artery on the left. Luke Bourne MD Ankle X-Ray 02/06/17 1709 Signed Impressions: Service Date/Time: Monday, February 06, 2017 17:17 - CONCLUSION: Negative for fracture. Bennett Ibarra MD FACR Head CT 02/06/17 1656 Signed Impressions: Service Date/Time: Monday, February 06, 2017 17:57 - CONCLUSION: 1. 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 2. Mild, acute mastoiditis on the right. 3. Otherwise, no acute intracranial process. Ernesto Doss MD Chest X-Ray 02/06/176 Signed Impressions: Service Date/Time: Monday, February 06, 2017 17:05 - CONCLUSION: Compensated cardiomegaly otherwise negative Bennett Ibarra MD FACR Carotid Artery Ultrasound 02/06/17 0000 Signed Impressions: Service Date/Time: Monday, February 06, 2017 21:43 - CONCLUSION: 1. Incomplete examination. Patient refused further imaging. 2. I'm concerned there may be occlusion of the right internal carotid artery. Dense calcification in the left carotid bulb with no Doppler evaluation of the left carotid system. 3. Antegrade flow in the right vertebral artery. Left vertebral was not imaged. Ernesto Doss MD Patient/Family Conference Present at Family Conference: Sridhar Zavaleta . Family Conference Time (mins): 50 Family Conference Location: Bedside Issues Discussed: * Palliative care role, purpose, approach * Additional medical, psychosocial, and spiritual history * Patients general health, functional status, and cognitive changes in the months leading up to the current hospitalization * Patient/family understanding of the current medical problems * Patient/family understanding of prognosis * Patients goals of care as best understood from advance directives and/or conversations and/or values * Current medical treatment options and benefits/burdens of those options * Likely scenarios comparing ongoing aggressive care with a transition to comfort measures only * Questions answered to the best of my ability * Palliative care contact information provided The patient definitely wants "to get better," and wants to continue with the plan to follow-up at the [facility] for probable surgery now that he has finished the scheduled chemotherapy. . Assessment and Plan Disease Oriented Problem List: (1) confusion/hallucinations, new onset, ?delirium, without apparent infection (2) electrolyte (potassium and calcium) imbalances (3) bladder cancer July 2016, high-grade muscle invasive urothelial cancer (4) S/P recent completion of cisplatin and Gemzar cycles (5) peripheral arterial disease, severe (6) carotid vascular disease (7) anemia (8) history of alcohol abuse last year and in previous years, only occasional alcohol recently (9) insulin-dependent diabetes (10) hypertension (11) glaucoma (12) history of prostate cancer, s/p radiation (13) hyperlipidemia (14) remote history of CVA (15) depression Symptom Scale: (1) pain 0-10 Scale: 1 (back pain when he is ambulating) (2) weakness 0-10 Scale: Unable to quantify (global fatigue and weakness) (3) confusion/delirium 0-10 Scale: 3 (persistent confusion) Pertinent Non-Medical Issues Psychosocial: Spiritual: The patient has a Denominational background, and he has attended a local judaism intermittently. He is not affiliated with any particular judaism or clergy at this time. He is open to political researcher visits. Legal: The patient is confused and is still having visual hallucinations, but he is aware of his malignancy, the plan for surgery, and the serious nature of it. I'm not convinced that he has total capacity for making decisions regarding complex medical issues, but he certainly has capacity to identify a health care surrogate and to participate in all forms of medical decision making with his HCS. Ethical issues impacting care: None. Important Contacts Friend and HCS: Donna Chambers [phone] Son: Amadeo Valente [phone] Kkhyev-wk-mtw Julia Zavaleta . Prognosis The patient's overall prognosis is somewhat guarded in the long-term. He is in the midst of aggressive treatment for his invasive bladder cancer, and now has had some worsening weakness in the face of confusion and possible delirium. . Code Status: Full Code Plan * FULL CODE * DECISION-MAKING: The patient is confused and is still having intermittent visual hallucinations, but he is aware of his malignancy, the plan for surgery, and the serious nature of it. I'm not convinced that he has total capacity for making decisions regarding complex medical issues and discussions, but he certainly has capacity to identify a health care surrogate and to participate in all forms of medical decision making in a shared manner along with his HCS. * GOALS: The patient definitely wants "to get better," and wants to continue with the plan to follow-up at the [facility] for probable surgery now that he has finished the scheduled chemotherapy. * SYMPTOMS: The patient's pain is minimal while he is primarily spending his time in bed, and his confusion/hallucinations are being addressed by psychiatry. I have no additional medication recommendations at this time. I believe that his alcohol consumption history is somewhat uncertain or suspect ( see above), and it may be worthwhile to add some thiamine for a couple days; order placed. * Healthcare surrogate form naming close friend/retired nurse Donna Chambers as HCS. * Search And Rescue Officer visit requested. * As the patient and his eecsgi-ew-tuu who was present for this consultation both tell me that confusion and hallucinations have never occurred before the past 2 or 3 days, I believe that receiving Dr. Dumont's input may also be helpful, as the patient just concluded his most recent cycle of cisplatin/ Gemzar chemo. Consult placed. * Palliative Care will continue to follow the patient during this hospitalization. . Time Spent Total Floor Time (mins): 82 Face to Face Time (mins): 55 >50% Counseling/Coord of Care: Yes Thank you for the opportunity to participate in the care of Mr. Valente. Attestation To help prompt me to consider important information that might be impacting today's encounter and assessment, information from prior notes written by myself or my colleagues may have been "brought forward" into today's note. My signature on this note, however, is an attestation that I personally performed the exam, history, and/or decision-making noted today, and, unless otherwise indicated, the interactions with patient, family, and staff as well as the review of records all occurred today. I also attest that the listed assessment and stated plan reflect my best clinical judgment today based on the combination of historical information, prior notes, and today's exam/ interactions. When time spent is documented, it refers only to time spent today by the signer, or if indicated, combined time spent today by collaborating physician/nurse practitioner. Phyllis Pope MD Feb 08, 2017 14:58
[2017-02-08] MEDS: THIAMINE HCL 100 MG TAB PO SCH (17:47)
--- NOTE | 2017-02-08 18:14 | MG ---
cc: MANDA ESCOBEDO MD Sex: M DATE OF STUDY: 02/08/2017 DATE OF : 1940 DESCRIPTION: 76-year-old with a history of syncopal episode, apparently elevated blood pressure. Posterior rhythm demonstrates 6 to 8 Hz activity 20-50 microvolts, frontal beta theta frequencies, good EEG variability reactivity. Intermittent continuous frontal fast frequency artifact noted. Reduced driving with photic stimulation. Single lead EKG showing sinus rhythm. INTERPRETATION Slow alpha variant EEG. No seizure activity. Clinical correlation. Manda Escobedo MD MG/GORGE /4:36 PM /5:56 PM
[2017-02-08] MEDS: LATANOPROST 0.005% OPHT SOLN 2.5 ML BTL RIGHT EYE SCH (21:00)
[2017-02-08] MEDS: risperiDONE 0.5 MG TAB PO SCH (21:45)
--- NOTE | 2017-02-08 22:36 | MB ---
cc: LEANDRA ESQUIVEL M.D. DATE OF CONSULTATION 02/08/2017 REASON FOR CONSULTATION Consult requested by Dr. Pope for evaluation and management of urinary bladder cancer in a patient who is admitted with syncopal episode. HISTORY OF PRESENT ILLNESS Eric is a pleasant 76-year-old male. He is well-known to me. He was diagnosed with urinary bladder cancer in August of this year when he presented with gross hematuria. He had a CT scan of the abdomen and pelvis which showed large 3.6 cm mass in the left lateral bladder wall. He was referred to urologist Dr. Dalton who did the TURBT on September 01. 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 The patient was referred to me for neoadjuvant chemotherapy prior to radical cystectomy. He was started on neoadjuvant cisplatin and Gemzar chemotherapy on October 19. He had a total of four cycles of chemotherapy which he just completed last week. The patient had been referred back to Dr. Dalton, urologist, for a radical cystectomy. However, according to the patient, Dr. Dalton has referred him to [facility] in [place] to get second opinion from the academic urologist. The patient has an appointment at [facility] next week Monday. The patient is now admitted to the hospital 2 days ago after he had a syncopal episode. When he came to the emergency room he had blood test which showed significant electrolyte imbalances with severe hypokalemia and hypocalcemia. He was also found to be in hypertensive crisis with a blood pressure of 231/ 105 in the emergency room. The patient was admitted to the hospital. The urinalysis was suspected for urinary tract infection and he was started on Rocephin. However, the urine culture came back negative. The patient has been receiving electrolyte supplements for severe hypokalemia, hypocalcemia and hypomagnesemia. His electrolytes are improving with those supplements. However, the patient has developed change in mental status and he has been confused at times. 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 There is no acute intracranial process noted. He had a neck CT angiogram which showed no evidence of significant carotid stenosis noted on either side. The carotid artery ultrasound showed incomplete examination. Hospitalist Dr. Koehler requested palliative consult to define the goal. Dr. Pope from palliative care did a consultation and saw the patient today. Clearly the patient wanted to undergo further treatment for his bladder cancer as it is still potentially curable. He is looking forward to meet with the urologist at [facility] to discuss about the surgery. Dr. Pope is requesting oncology consult for further evaluation. The patient had an EEG which showed slow alpha variant. no seizure activity noted. A psychiatric consult was done and they have remmended Risperdal. Interestingly no neurology consult has been obtained so far regarding his change in mental status. The patient is pleasantly confused. He thinks that he is confused due to the medications that he has been getting.. He is fully awake, alert and oriented. He was able to recognize me immediately and we had a good conversation. The rest of the review of systems is negative. PAST MEDICAL HISTORY 1. Muscle invasive urinary bladder cancer. 2. Glaucoma. 3. Hypertension. 4. Nephrolithiasis. 5. Peripheral vascular disease with a left BKA. 6. History of prostate cancer status post radiation therapy. 7. Diabetes mellitus. PAST SURGICAL HISTORY 1. Cataract. 2. Cholecystectomy. 3. Wvbgid-A-Blen. 4. Vasectomy. 5. Amputation of the left lower leg in 2011. 6. Cystoscopy with TURBT. ALLERGIES MELL INHIBITORS. MEDICATIONS 1. Potassium. 2. Eye drop. 3. Norvasc. 4. Levemir. 5. Thiamine. 6. Calcium carbonate. 7. Magnesium oxide. 8. Risperdal. 9. Ceftriaxone. 10. Sliding scale insulin. FAMILY HISTORY Mother from heart disease. Father from heart disease as well. He has one sister who is alive and well and has one son who is alive and well. He does not have any brothers or daughters. SOCIAL HISTORY The patient is a . He used to smoke cigarettes, one pack a day for 20 years, quit 35 years ago. Drinks alcohol occasionally. 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 PHYSICAL EXAMINATION GENERAL: He is a well-developed, well-nourished white male in no apparent distress. VITAL SIGNS: Temperature 98.1, heart rate is 109, blood pressure 148/87, O2 saturation 94% on room air. HEENT: PERRLA, EOMI, anicteric. No oral lesions noted. NECK: No lymphadenopathy noted. LUNGS: Clear. No wheezing, rhonchi or rales. CARDIOVASCULAR: Heart is regular rate and rhythm. ABDOMEN: Soft and nontender. EXTREMITIES: No edema. Left BKA noted. NEUROLOGIC: Awake, alert, oriented times three. SKIN: No significant lesions noted. ASSESSMENT 1. Metabolic encephalopathy due to severe electrolyte imbalances. 2. Severe hypokalemia, hypocalcemia and hypomagnesemia. This is due to the cisplatin chemotherapy. 3. T2 muscle invasive urinary bladder cancer with no evidence of metastatic disease. He recently completed four cycles of neoadjuvant cisplatin and Gemzar chemotherapy. PLAN I have reviewed his available records and I had an extensive discussion with the patient regarding his current clinical situation. When he came into the hospital 2 days ago his potassium was very low at 2.6, calcium was very low at 6.6 and albumin is 1.8. His magnesium was also low at 0.9. All these electrolyte imbalances are most likely due to the cisplatin chemotherapy. The patient has been receiving electrolyte supplements. Today his potassium is now back to normal at 4.5. Magnesium is also back to normal at 1.5. However, the calcium is still low at 7.7 but I believe protein corrected calcium is close to normal. His urine toxicology screen was negative. CBC showed white count of 5.9, hemoglobin 8.8 platelet count 337. He has anemia due to the chemotherapy but he does not require any blood transfusion support. Urinalysis was suspected for UTI but the urine culture is negative. Therefore my recommendation is to stop the Rocephin as he has no evidence of urinary tract infection. The patient has been evaluated by psychiatrist and he was started on Risperdal. I am not sure whether the patient is having some side effects from Risperdal. We need to discuss with the psychiatrist to reconsider the risperdal as the patient does not have any previous history of psychiatric disorder that I know of. The patient has metabolic encephalopathy due to severe electrolyte imbalance. I expect his encephalopathy will continue to resolve in the next several days. The patient does not have any metastatic disease. He is not a candidate for Hospice. Potentially the patient could be cured from his cancer by having a radical cystectomy. He was not a candidate for bladder preservation approach with radiation and chemotherapy due to his previous radiation for prostate cancer. Therefore, the only option for possible cure is neoadjuvant chemotherapy followed by radical cystectomy. The patient has been reevaluated by his urologist Dr. Dalton who has referred him to [facility] in [place] to get second opinion from an academic urologist. The patient has an appointment at [facility] next week Monday according to him. To me the patient appears to be awake, alert, oriented and making sense in his conversation. Possible he could have some delirium being in the hospital. I expect this to resolve in the next few days. When the patient came in his blood pressure was very high and he was in hypertensive crisis. He had been treated with the antihypertensive medications. His diastolic blood pressure still remains high and I do not see the patient is on any schedule blood pressure medication. I advise the medical team to monitor his hypertension. The patient usually takes amlodipine 10 mg as an outpatient for his hypertension. I will restart the amlodipine and stop the Rocephin. He is diabetic and he has been on insulin. He has had hypoglycemia. I will ask the medical team to control his sugar and avoid any hypoglycemia which of course can cause change in mental status. Further recommendations based on his hospital stay. Thank you for asking my opinion. MD RADHA Morris/TORRES /9:26 PM /10:02 PM KAMERON
[2017-02-08] MEDS: hydrALAZINE HCL 20 MG/ML VIAL IV PUSH PRN (23:56)
[2017-02-09] VITALS (9 sets, daily range): BP systolic 142–192; BP diastolic 74–97; PULSE 104–113; RESP 20–22; TEMP 97.2–97.6; O2SAT 92–100
[2017-02-09] MEDS: hydrALAZINE HCL 20 MG/ML VIAL IV PUSH PRN (00:14)
[2017-02-09] MEDS: HEPARIN SODIUM - SQ 10,000 UNITS/ML VIAL SQ SCH ×2 (05:21→12:51)
[2017-02-09] MEDS: NS + KCL 40 MEQ INJ 1,000 ML IV SCH (05:22)
[2017-02-09] MEDS: INSULIN ASPART SUPPLEMENTAL SCALE SQ SCH ×3 (08:00→17:00)
[2017-02-09 08:10] LABS: AUTOMATED NEUTROPHIL # 7.7 TH/MM3 (1.8-7.7); BASOPHIL % 0.2 % (0.0-2.0); EOSINOPHIL % 0.1 % (0.0-4.0); HEMATOCRIT 28.3 % (39.0-51.0); HEMO FLAGS DIFF FINAL; LYMPH % 6.5 % (9.0-44.0); LYMPHOCYTE # 0.6 TH/MM3 (1.0-4.8); MEAN CELL VOLUME 92.2 FL (80.0-100.0); MEAN CORPUSCULAR HGB CONC 33.6 % (32.0-36.0); MONO % 11.5 % (0.0-8.0); NEUT % 81.7 % (16.0-70.0); PLATELET COUNT 392 TH/MM3 (150-450); RED BLOOD COUNT 3.07 MIL/MM3 (4.50-5.90); RED CELL DISTRIBUTION WIDTH 21.3 % (11.6-17.2); WHITE BLOOD COUNT 9.4 TH/MM3 (4.0-11.0)
[2017-02-09 08:29] LABS: ALKALINE PHOSPHATASE 74 U/L (45-117); ALT (GPT) 16 U/L (12-78); ANION GAP 10 MEQ/L (5-15); AST (GOT) 27 U/L (15-37); BICARBONATE 20.2 MEQ/L (21.0-32.0); BLOOD UREA NITROGEN 17 MG/DL (7-18); CHLORIDE 111 MEQ/L (98-107); GLOMERULAR FILTRATION RATE 75 ML/MIN (>89); MAGNESIUM 1.6 MG/DL (1.5-2.5); POTASSIUM 5.4 MEQ/L (3.5-5.1); SODIUM (NA) 141 MEQ/L (136-145); TOTAL BILIRUBIN ADULT 0.4 MG/DL (0.2-1.0)
[2017-02-09] MEDS: DORZOLAMIDE 2% OPTH SOLN 200 DROP/10 ML BTLO RIGHT EYE SCH (09:00)
[2017-02-09] MEDS: SODIUM CHLORIDE 0.9% FLUSH 10 ML FLUSH IV FLUSH SCH (09:00)
[2017-02-09] MEDS: MAGNESIUM OXIDE 400 MG TAB PO SCH (09:55)
[2017-02-09] MEDS: CALCIUM CARBONATE 500 MG CHEWABLE TAB CHEW SCH (09:55)
[2017-02-09] MEDS: HALOPERIDOL LACTATE 5 MG/ML AMP IM PRN ×2 (09:56→17:48)
[2017-02-09] MEDS: THIAMINE HCL 100 MG TAB PO SCH (09:56)
[2017-02-09] MEDS: risperiDONE 0.5 MG TAB PO SCH (09:56)
[2017-02-09] MEDS ORDERED: RISP0.5T25 PO (11:43)
[2017-02-09] MEDS ORDERED: THIA100 PO (11:43)
--- NOTE | 2017-02-09 11:43 | HHI.DS ---
Discharge Summary Admission Date Feb 06, 2017 at 19:40 Discharge Date: Feb 09, 2017 Admitting Diagnosis syncope, hypokalemia, hypocalcemia, anemia (1) Syncope ICD Code: R55 - Syncope and collapse Status: Acute (2) Unspecified psychosis ICD Code: F29 - Unspecified psychosis not due to a substance or known physiological condition Procedures none Brief History - From Admission 76-year-old male with a past medical history significant for bladder cancer, hypertension and insulin-dependent diabetes mellitus resents to the emergency department after a syncopal episode. The patient states that he was sitting in the sun when he passed out. He states he felt lightheaded and dizzy and does not remember the rest. A neighbor called 911. He also had a syncopal episode on Monday resulting in him falling out of the bed. He denies any chest pain/ pressure. The patient was found to be hypertensive in the emergency department with a blood pressure of 231/105. He denies any headaches or blurry vision. 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 He is currently A& O 3. The patient has multiple metabolic derangements including a potassium of 2.6 and a corrected calcium of 6.6. His UA was consistent with UTI. CBC/BMP: 02/09/17 0739 02/09/17 0739 Significant Findings Laboratory Tests Test 02/06/17 17:30 02/07/17 08:00 02/07/17 13:20 02/08/17 06:25 Red Blood Count 2.89 MIL/MM3 (4.50-5.90) 3.01 MIL/MM3 (4.50-5.90) 2.85 MIL/MM3 (4.50-5.90) Hemoglobin 8.9 GM/DL (13.0-17.0) 8.9 GM/DL (13.0-17.0) 8.8 GM/DL (13.0-17.0) Hematocrit 26.1 % (39.0-51.0) 26.9 % (39.0-51.0) 25.9 % (39.0-51.0) Red Cell Distribution Width 21.7 % (11.6-17.2) 21.6 % (11.6-17.2) 21.6 % (11.6-17.2) Monocytes (%) (Auto) 17.8 % (0.0-8.0) 18.7 % (0.0-8.0) 19.3 % (0.0-8.0) Lymphocytes # (Auto) 0.7 TH/MM3 (1.0-4.8) Activated Partial Thromboplast Time 20.6 SEC (24.3-30.1) Urine Turbidity HAZY (CLEAR) Urine Protein GREATER THAN 600 mg/dL Urine Glucose (UA) 300 mg/dL (NEG) Urine Ketones TRACE mg/dL (NEG) Urine Occult Blood MOD (NEG) Urine RBC 4 /hpf (0-3) Urine WBC Clumps RARE (NONE) Urine Bacteria OCC /hpf (NONE) Urine Mucus FEW /lpf (OCC) Random Glucose 141 MG/DL (74-106) Total Protein 4.0 GM/DL (6.4-8.2) 5.2 GM/DL (6.4-8.2) Albumin 1.8 GM/DL (3.4-5.0) Calcium Level 5.3 MG/DL (8.5-10.1) 7.1 MG/DL (8.5-10.1) 7.7 MG/DL (8.5-10.1) Alanine Aminotransferase (ALT/SGPT) 9 U/L (12-78) Potassium Level 2.6 MEQ/L (3.5-5.1) 3.4 MEQ/L (3.5-5.1) Chloride Level 116 MEQ/L (98-107) 111 MEQ/L (98-107) 112 MEQ/L (98-107) Carbon Dioxide Level 18.3 MEQ/L (21.0-32.0) Estimat Glomerular Filtration Rate 88 ML/MIN (>89) 72 ML/MIN (>89) 75 ML/MIN (>89) Protein Corrected Calcium 6.6 MG/DL (8.5-10.1) 8.1 MG/DL (8.5-10.1) Magnesium Level 0.9 MG/DL (1.5-2.5) Monocytes # (Auto) 1.1 TH/MM3 (0-0.9) Test 02/09/17 07:39 Red Blood Count 3.07 MIL/MM3 (4.50-5.90) Hemoglobin 9.5 GM/DL (13.0-17.0) Hematocrit 28.3 % (39.0-51.0) Red Cell Distribution Width 21.3 % (11.6-17.2) Neutrophils (%) (Auto) 81.7 % (16.0-70.0) Lymphocytes (%) (Auto) 6.5 % (9.0-44.0) Monocytes (%) (Auto) 11.5 % (0.0-8.0) Lymphocytes # (Auto) 0.6 TH/MM3 (1.0-4.8) Monocytes # (Auto) 1.1 TH/MM3 (0-0.9) Random Glucose 209 MG/DL (74-106) Total Protein 5.5 GM/DL (6.4-8.2) Albumin 2.4 GM/DL (3.4-5.0) Calcium Level 7.8 MG/DL (8.5-10.1) Potassium Level 5.4 MEQ/L (3.5-5.1) Chloride Level 111 MEQ/L (98-107) Carbon Dioxide Level 20.2 MEQ/L (21.0-32.0) Estimat Glomerular Filtration Rate 75 ML/MIN (>89) Imaging Last Impressions Neck CTA 02/07/17 0000 Signed Impressions: Service Date/Time: Tuesday, February 07, 2017 14:14 - CONCLUSION: No evidence of significant carotid bifurcation stenosis on either side. There is moderate stenotic disease involving the lower cervical common carotid artery on the left , the high cervical and proximal petrous internal carotid artery on the right and the proximal vertebral artery on the left. Luke Bourne MD Ankle X-Ray 02/06/17 1709 Signed Impressions: Service Date/Time: Monday, February 06, 2017 17:17 - CONCLUSION: Negative for fracture. Bennett Ibarra MD FACR Head CT 02/06/17 1656 Signed Impressions: Service Date/Time: Monday, February 06, 2017 17:57 - CONCLUSION: 1. 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 2. Mild, acute mastoiditis on the right. 3. Otherwise, no acute intracranial process. Ernesto Doss MD Chest X-Ray 02/06/17 1656 Signed Impressions: Service Date/Time: Monday, February 06, 2017 17:05 - CONCLUSION: Compensated cardiomegaly otherwise negative Bennett Ibarra MD FACR Carotid Artery Ultrasound 02/06/17 0000 Signed Impressions: Service Date/Time: Monday, February 06, 2017 21:43 - CONCLUSION: 1. Incomplete examination. Patient refused further imaging. 2. I'm concerned there may be occlusion of the right internal carotid artery. Dense calcification in the left carotid bulb with no Doppler evaluation of the left carotid system. 3. Antegrade flow in the right vertebral artery. Left vertebral was not imaged. Ernesto Doss MD PE at Discharge GENERAL: male lying in bed in a well-developed and well-nourished, pleasantly confused. SKIN: No rashes, ecchymoses or lesions. Cool and dry. CARDIOVASCULAR: Regular rate and rhythm without murmurs, gallops, or rubs. RESPIRATORY: Clear to auscultation. Breath sounds equal bilaterally. No wheezes , rales, or rhonchi. GASTROINTESTINAL: Abdomen soft, non-tender, nondistended. No guarding. MUSCULOSKELETAL: 1+ pitting edema to the mid adams of the right lower extremity. Left lower extremity with AKA. No calf tenderness. Negative Homans sign bilaterally. NEUROLOGICAL: Awake and alert. Cranial nerves II through XII intact. Motor and sensory grossly within normal limits. Normal speech. Hospital Course 76-year-old male with insulin-dependent diabetes mellitus, hypertension and bladder cancer presents after syncopal episode with hypertensive crisis. Patient with orthostatic hypotension on admission. Norvasc was held. Patient with dehydration he received IV fluids. Blood pressure better controlled. Norvasc was restarted. Patient with electrolytes abnormalities replaced. Patient was also noted with visual hallucinations, and agitation, he was Lopez acted, started on Risperdal and Haldol, psychiatry was consulted. The patient had a normal EEG. Medically appears stable. Patient was discharged in stable condition to inpatient psych unit. To follow-up with PCP in consultants as outpatient. Pt Condition on Discharge: Stable Discharge Disposition: Disc to Psych Care Fac Discharge Time: > 30 minutes Discharge Instructions DIET: Follow Instructions for: Heart Healthy Diet, Diabetic Diet Activities you can perform: Regular-No Restrictions Follow up Referrals: Oncology - 2 Weeks with Denny Dumont MD PCP Follow-up - 2-3 Days New Medications: Risperidone (Risperdal) 0.5 Mg Tab 0.5 MG PO Q12HR for anxiety/depression , #60 TAB Thiamine HCl (Gnp Vitamin B-1) 100 Mg Tab 100 MG PO DAILY for Nutritional Supplement, #30 TAB Continued Medications: Amlodipine (Amlodipine) 10 Mg Tab 10 MG PO DAILY for Blood Pressure Management, TAB 0 Refills Dorzolamide Opth Drops (Dorzolamide Opth Drops) 2% Soln 1 DROP RIGHT EYE BID for Glaucoma, #1 BOTTLE 0 Refills Insulin Glargine Inj (Lantus Inj) 1,000 Unit/10 Ml Vial 25 UNITS SQ DAILY for Blood Sugar Management, VIAL 0 Refills Insulin Glargine Inj (Lantus Inj) 1,000 Unit/10 Ml Vial 30 UNITS SQ HS for Blood Sugar Management, VIAL 0 Refills Latanoprost Opth Drops (Latanoprost Opth Drops) 0.005% Drops 1 DROP RIGHT EYE HS for Glaucoma, #2.5 ML 0 Refills Refrigerate until opened. Multiple Vitamins W/ Minerals (Preservision Areds) 1 Tab 2 TAB PO DAILY for Nutritional Supplement, TAB 0 Refills Discontinued Medications: Temazepam (Temazepam) 15 Mg Cap 15 MG PO HS PRN for INSOMNIA, CAP 0 Refills Suzanna Koehler MD Feb 09, 2017 11:43
--- NOTE | 2017-02-09 12:56 | HHI.PYPN ---
Subjective Remarks The patient was seen today for psychiatric reevaluation, case was discussed with , chart reviewed, patient was found in his bed focus in manipulating the TV control. Today the patient is disorganized, he says that " I am here preparing my gun because there are [address] wanting to kill me". Patient seems to be paranoid, internally stimulated and having active visual hallucinations. He is oriented especially in time and place, seems to be confused, with attention deficit. Review of Systems Except as stated in HPI: all other systems reviewed are Neg Mental Status Examination Appearance: Appropriate Consciousness: Alert Orientation: x4 Motor Activity: Normal gait Speech: Unremarkable Language: Adequate Fund of Knowledge: Adequate Attention and Concentration: Adequate Memory: Unremarkable Mood: Appropriate Affect: Appropriate Thought Process & Associations: Intact Thought Content: Appropriate Hallucination Type: None, Visual Delusion Type: None Suicidal Ideation: No Suicidal Plan: No Suicidal Intention: No Homicidal Ideation: No Homicidal Plan: No Homicidal Intention: No Insight: Adequate Judgment: Adequate Results Labs Test 02/09/17 07:39 White Blood Count 9.4 TH/MM3 Red Blood Count 3.07 MIL/MM3 Hemoglobin 9.5 GM/DL Hematocrit 28.3 % Mean Corpuscular Volume 92.2 FL Mean Corpuscular Hemoglobin 31.0 PG Mean Corpuscular Hemoglobin Concent 33.6 % Red Cell Distribution Width 21.3 % Platelet Count 392 TH/MM3 Mean Platelet Volume 8.1 FL Neutrophils (%) (Auto) 81.7 % Lymphocytes (%) (Auto) 6.5 % Monocytes (%) (Auto) 11.5 % Eosinophils (%) (Auto) 0.1 % Basophils (%) (Auto) 0.2 % Neutrophils # (Auto) 7.7 TH/MM3 Lymphocytes # (Auto) 0.6 TH/MM3 Monocytes # (Auto) 1.1 TH/MM3 Eosinophils # (Auto) 0.0 TH/MM3 Basophils # (Auto) 0.0 TH/MM3 CBC Comment DIFF FINAL Differential Comment Blood Urea Nitrogen 17 MG/DL Creatinine 0.98 MG/DL Random Glucose 209 MG/DL Total Protein 5.5 GM/DL Albumin 2.4 GM/DL Calcium Level 7.8 MG/DL Magnesium Level 1.6 MG/DL Alkaline Phosphatase 74 U/L Aspartate Amino Transf (AST/SGOT) 27 U/L Alanine Aminotransferase (ALT/SGPT) 16 U/L Total Bilirubin 0.4 MG/DL Sodium Level 141 MEQ/L Potassium Level 5.4 MEQ/L Chloride Level 111 MEQ/L Carbon Dioxide Level 20.2 MEQ/L Anion Gap 10 MEQ/L Estimat Glomerular Filtration Rate 75 ML/MIN Date/Time Source Procedure Growth Status 02/06/17 17:30 Urine Random Urine Urine Culture - Final NO GROWTH IN 48 HOURS. Complete Vitals/IOs Vital Signs Date Time Temp Pulse Resp B/P (MAP) Pulse Ox O2 Delivery O2 Flow Rate FiO2 02/09/17 10:59 112 02/09/17 08:59 Room Air 02/09/17 04:00 97.6 20 161/74 (103) 93 02/08/17 13:31 2.00 Intake and Output 02/09/17 02/09/17 02/10/17 08:00 16:00 00:00 Intake Total 1240 ml Output Total 300 ml Balance 940 ml Assessment & Plan Problem List: (1) Unspecified psychosis ICD Codes: F29 - Unspecified psychosis not due to a substance or known physiological condition Assessment & Plan: Patient having active visual hallucinations, internally occupied and paranoid. We will increase Risperdal 2.5 mg in the morning and 1 mg at bedtime. Assessment & Plan Estimated LOS: days Justification for Cont. Inpt. Patient will be transferred to the med psych unit for psychiatric stabilization and to continue medical treatment. Aung Cuevas MD Feb 09, 2017 12:56
--- NOTE | 2017-02-09 13:00 | HHI.HCPN ---
Reason for visit a. To assist with evaluation and management of symptoms including: Confusion, hallucinations, weakness b. To assist medical decision maker(s) with: better understanding of current medical conditions; weighing benefits/burdens of medical treatment options; making medical treatment decisions. . Subjective/Interval History INTERVAL NOTE: The patient's delirium is worse today. He is mumbling at times, thinks he is in [place], wants to get up and walk home, and says his parents spent the night with him. He continues to see another man in the room who is actually not present. He denies pain at this time and says he is not short of breath. His delirium is worsening: * He has no obvious infection * There is no history of head trauma or any signs of trauma visible on the CT * He is said to have had a BM yesterday, and he has been voiding okay * We know that 30-40% of hospitalized elderly patients develop delirium, but his confusion and hallucinations started prior to the hospitalization (but now are worsening) * He has had alcohol problems in the past, but he says he has consumed less than 1 beer per day over the past 10 months, so that seems unlikely as a cause of his delirium now * The only new medicines here were Rocephin at the time of admission, and the addition of Risperdal - the delirium has worsened while on the Risperdal * He has known significant carotid vascular disease and has an old lacunar infarct on CT scan; I wonder if he may have had another cerebrovascular event - would an MRI help? . Advance Directives Living Will: Never completed Health Care Surrogate: Never completed Durable Power of Diet Supervisor: Never completed Advance Directive Specifics Health Care Surrogate(s): The patient tells me today that he wants to a point his close friend and retired nurse Donna Chambers as his HCS. . Objective Vital Signs Date Time Temp Pulse Resp B/P (MAP) Pulse Ox O2 Delivery O2 Flow Rate FiO2 02/09/17 10:59 112 02/09/17 08:59 Room Air 02/09/17 04:00 97.6 113 20 161/74 (103) 93 02/09/17 00:13 190/90 (123) 02/09/17 00:00 113 02/08/17 23:50 98.2 112 20 200/100 (133) 92 02/08/17 22:13 190/80 (116) 02/08/17 20:00 98.3 114 18 190/80 (116) 91 02/08/17 18:18 Room Air 02/08/17 16:25 112 02/08/17 16:04 98.1 109 19 148/87 (107) 94 02/08/17 13:31 Nasal Cannula 2.00 Intake & Output 02/09/17 02/09/17 07:00 19:00 Intake Total 1240 ml Output Total 825 ml Balance 415 ml Intake Oral 240 ml IV Total 1000 ml Output Urine Total 825 ml # Voids 3 # Bowel Movements 0 Physical Exam CONSTITUTIONAL/GENERAL: This is an adequately nourished patient, pleasant, in no apparent distress. EYES: Pupils equal and round and reactive. Extraocular motions intact. No scleral icterus. No injection or drainage. Fundi not examined. NECK: Trachea midline. Supple, nontender. No palpable thyroid enlargement or nodularity. CARDIOVASCULAR: Regular rate and rhythm without murmurs, gallops, or rubs. No JVD. Peripheral pulses symmetric. RESPIRATORY/CHEST: Symmetric, unlabored respirations. Clear to auscultation. Breath sounds equal bilaterally. No wheezes, rales, or rhonchi. GASTROINTESTINAL: Abdomen soft, non-tender, nondistended. No hepato-splenomegaly , or palpable masses. No guarding. Bowel sounds present. MUSCULOSKELETAL: Extremities without clubbing, cyanosis, or edema. No joint tenderness or effusion noted. No calf tenderness. No mottling or clubbing. LYMPHATICS: No palpable cervical or supraclavicular adenopathy. NEUROLOGICAL: Awake and alert. Motor and sensory grossly within normal limits. Follows commands. He is mumbling at times. He is not oriented to place, day, month, or year; he continues to have hallucinations. Moves all extremities. PSYCHIATRIC: No obvious anxiety/depression. He is still having intermittent visual hallucinations that are not frightening to him. . Diagnostic Tests Laboratory Laboratory Tests Test 02/06/17 17:30 02/07/17 08:00 02/07/17 13:20 02/08/17 06:25 White Blood Count 5.2 TH/MM3 (4.0-11.0) 4.8 TH/MM3 (4.0-11.0) 5.9 TH/MM3 (4.0-11.0) Red Blood Count 2.89 MIL/MM3 (4.50-5.90) 3.01 MIL/MM3 (4.50-5.90) 2.85 MIL/MM3 (4.50-5.90) Hemoglobin 8.9 GM/DL (13.0-17.0) 8.9 GM/DL (13.0-17.0) 8.8 GM/DL (13.0-17.0) Hematocrit 26.1 % (39.0-51.0) 26.9 % (39.0-51.0) 25.9 % (39.0-51.0) Mean Corpuscular Volume 90.4 FL (80.0-100.0) 89.6 FL (80.0-100.0) 91.0 FL (80.0-100.0) Mean Corpuscular Hemoglobin 30.9 PG (27.0-34.0) 29.5 PG (27.0-34.0) 31.0 PG (27.0-34.0) Mean Corpuscular Hemoglobin Concent 34.2 % (32.0-36.0) 32.9 % (32.0-36.0) 34.1 % (32.0-36.0) Red Cell Distribution Width 21.7 % (11.6-17.2) 21.6 % (11.6-17.2) 21.6 % (11.6-17.2) Platelet Count 227 TH/MM3 (150-450) 309 TH/MM3 (150-450) 337 TH/MM3 (150-450) Mean Platelet Volume 8.4 FL (7.0-11.0) 8.1 FL (7.0-11.0) 8.0 FL (7.0-11.0) Neutrophils (%) (Auto) 67.1 % (16.0-70.0) 58.9 % (16.0-70.0) 60.9 % (16.0-70.0) Lymphocytes (%) (Auto) 13.3 % (9.0-44.0) 20.7 % (9.0-44.0) 18.2 % (9.0-44.0) Monocytes (%) (Auto) 17.8 % (0.0-8.0) 18.7 % (0.0-8.0) 19.3 % (0.0-8.0) Eosinophils (%) (Auto) 1.4 % (0.0-4.0) 1.3 % (0.0-4.0) 1.3 % (0.0-4.0) Basophils (%) (Auto) 0.4 % (0.0-2.0) 0.4 % (0.0-2.0) 0.3 % (0.0-2.0) Neutrophils # (Auto) 3.5 TH/MM3 (1.8-7.7) 2.8 TH/MM3 (1.8-7.7) 3.6 TH/MM3 (1.8-7.7) Lymphocytes # (Auto) 0.7 TH/MM3 (1.0-4.8) 1.0 TH/MM3 (1.0-4.8) 1.1 TH/MM3 (1.0-4.8) Monocytes # (Auto) 0.9 TH/MM3 (0-0.9) 0.9 TH/MM3 (0-0.9) 1.1 TH/MM3 (0-0.9) Eosinophils # (Auto) 0.1 TH/MM3 (0-0.4) 0.1 TH/MM3 (0-0.4) 0.1 TH/MM3 (0-0.4) Basophils # (Auto) 0.0 TH/MM3 (0-0.2) 0.0 TH/MM3 (0-0.2) 0.0 TH/MM3 (0-0.2) CBC Comment DIFF FINAL DIFF FINAL DIFF FINAL Differential Comment Prothrombin Time 10.8 SEC (9.8-11.6) Prothromb Time International Ratio 1.0 RATIO Activated Partial Thromboplast Time 20.6 SEC (24.3-30.1) Urine Color YELLOW (YELLW/STRAW) Urine Turbidity HAZY (CLEAR) Urine pH 6.5 (5.0-8.5) Urine Specific Twilight 1.025 (1.002-1.035) Urine Protein GREATER THAN 600 mg/dL Urine Glucose (UA) 300 mg/dL (NEG) Urine Ketones TRACE mg/dL (NEG) Urine Occult Blood MOD (NEG) Urine Nitrite NEG (NEG) Urine Bilirubin NEG (NEG) Urine Urobilinogen LESS THAN 2.0 MG/DL (LESS Urine Leukocyte Esterase NEG (NEG) Urine RBC 4 /hpf (0-3) Urine WBC 5 /hpf (0-5) Urine WBC Clumps RARE (NONE) Urine Bacteria OCC /hpf (NONE) Urine Hyaline Casts 3 /lpf (RARE) Urine Granular Casts 3 /lpf (NONE) Urine Mucus FEW /lpf (OCC) Microscopic Urinalysis Comment CULTURE INDICATED Blood Urea Nitrogen 14 MG/DL (7-18) 15 MG/DL (7-18) 14 MG/DL (7-18) Creatinine 0.85 MG/DL (0.60-1.30) 1.01 MG/DL (0.60-1.30) 0.97 MG/DL (0.60-1.30) Random Glucose 141 MG/DL (74-106) 80 MG/DL (74-106) 88 MG/DL (74-106) Total Protein 4.0 GM/DL (6.4-8.2) 5.2 GM/DL (6.4-8.2) Albumin 1.8 GM/DL (3.4-5.0) Calcium Level 5.3 MG/DL (8.5-10.1) 7.1 MG/DL (8.5-10.1) 7.7 MG/DL (8.5-10.1) Alkaline Phosphatase 56 U/L (45-117) Aspartate Amino Transf (AST/SGOT) 17 U/L (15-37) Alanine Aminotransferase (ALT/SGPT) 9 U/L (12-78) Total Bilirubin 0.4 MG/DL (0.2-1.0) Sodium Level 143 MEQ/L (136-145) 142 MEQ/L (136-145) 140 MEQ/L (136-145) Potassium Level 2.6 MEQ/L (3.5-5.1) 3.4 MEQ/L (3.5-5.1) 4.5 MEQ/L (3.5-5.1) Chloride Level 116 MEQ/L (98-107) 111 MEQ/L (98-107) 112 MEQ/L (98-107) Carbon Dioxide Level 18.3 MEQ/L (21.0-32.0) 21.0 MEQ/L (21.0-32.0) 22.3 MEQ/L (21.0-32.0) Anion Gap 9 MEQ/L (5-15) 10 MEQ/L (5-15) 6 MEQ/L (5-15) Estimat Glomerular Filtration Rate 88 ML/MIN (>89) 72 ML/MIN (>89) 75 ML/MIN (>89) Protein Corrected Calcium 6.6 MG/DL (8.5-10.1) 8.1 MG/DL (8.5-10.1) Total Creatine Kinase 157 U/L (39-308) Creatine Kinase MB 3.2 NG/ML (0.5-3.6) Troponin I 0.05 NG/ML (0.02-0.05) Magnesium Level 0.9 MG/DL (1.5-2.5) 1.5 MG/DL (1.5-2.5) Urine Opiates Screen NEG (NEG) Urine Barbiturates Screen NEG (NEG) Urine Amphetamines Screen NEG (NEG) Urine Benzodiazepines Screen NEG (NEG) Urine Cocaine Screen NEG (NEG) Urine Cannabinoids Screen NEG (NEG) Test 02/09/17 07:39 White Blood Count 9.4 TH/MM3 (4.0-11.0) Red Blood Count 3.07 MIL/MM3 (4.50-5.90) Hemoglobin 9.5 GM/DL (13.0-17.0) Hematocrit 28.3 % (39.0-51.0) Mean Corpuscular Volume 92.2 FL (80.0-100.0) Mean Corpuscular Hemoglobin 31.0 PG (27.0-34.0) Mean Corpuscular Hemoglobin Concent 33.6 % (32.0-36.0) Red Cell Distribution Width 21.3 % (11.6-17.2) Platelet Count 392 TH/MM3 (150-450) Mean Platelet Volume 8.1 FL (7.0-11.0) Neutrophils (%) (Auto) 81.7 % (16.0-70.0) Lymphocytes (%) (Auto) 6.5 % (9.0-44.0) Monocytes (%) (Auto) 11.5 % (0.0-8.0) Eosinophils (%) (Auto) 0.1 % (0.0-4.0) Basophils (%) (Auto) 0.2 % (0.0-2.0) Neutrophils # (Auto) 7.7 TH/MM3 (1.8-7.7) Lymphocytes # (Auto) 0.6 TH/MM3 (1.0-4.8) Monocytes # (Auto) 1.1 TH/MM3 (0-0.9) Eosinophils # (Auto) 0.0 TH/MM3 (0-0.4) Basophils # (Auto) 0.0 TH/MM3 (0-0.2) CBC Comment DIFF FINAL Differential Comment Blood Urea Nitrogen 17 MG/DL (7-18) Creatinine 0.98 MG/DL (0.60-1.30) Random Glucose 209 MG/DL (74-106) Total Protein 5.5 GM/DL (6.4-8.2) Albumin 2.4 GM/DL (3.4-5.0) Calcium Level 7.8 MG/DL (8.5-10.1) Magnesium Level 1.6 MG/DL (1.5-2.5) Alkaline Phosphatase 74 U/L (45-117) Aspartate Amino Transf (AST/SGOT) 27 U/L (15-37) Alanine Aminotransferase (ALT/SGPT) 16 U/L (12-78) Total Bilirubin 0.4 MG/DL (0.2-1.0) Sodium Level 141 MEQ/L (136-145) Potassium Level 5.4 MEQ/L (3.5-5.1) Chloride Level 111 MEQ/L (98-107) Carbon Dioxide Level 20.2 MEQ/L (21.0-32.0) Anion Gap 10 MEQ/L (5-15) Estimat Glomerular Filtration Rate 75 ML/MIN (>89) Result Diagram: 02/09/17 0739 02/09/17 0739 Microbiology Microbiology Date/Time Source Procedure Growth Status 02/06/17 17:30 Urine Random Urine Urine Culture - Final NO GROWTH IN 48 HOURS. Complete Imaging Last Impressions Neck CTA 02/07/17 0000 Signed Impressions: Service Date/Time: Tuesday, February 07, 2017 14:14 - CONCLUSION: No evidence of significant carotid bifurcation stenosis on either side. There is moderate stenotic disease involving the lower cervical common carotid artery on the left , the high cervical and proximal petrous internal carotid artery on the right and the proximal vertebral artery on the left. Luke Bourne MD Ankle X-Ray 02/06/17 1709 Signed Impressions: Service Date/Time: Monday, February 06, 2017 17:17 - CONCLUSION: Negative for fracture. Bennett Ibarra MD FACR Head CT 02/06/176 Signed Impressions: Service Date/Time: Monday, February 06, 2017 17:57 - CONCLUSION: 1. 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 2. Mild, acute mastoiditis on the right. 3. Otherwise, no acute intracranial process. Ernesto Doss MD Chest X-Ray 02/06/176 Signed Impressions: Service Date/Time: Monday, February 06, 2017 17:05 - CONCLUSION: Compensated cardiomegaly otherwise negative Bennett Ibarra MD FACR Carotid Artery Ultrasound 02/06/17 0000 Signed Impressions: Service Date/Time: Monday, February 06, 2017 21:43 - CONCLUSION: 1. Incomplete examination. Patient refused further imaging. 2. I'm concerned there may be occlusion of the right internal carotid artery. Dense calcification in the left carotid bulb with no Doppler evaluation of the left carotid system. 3. Antegrade flow in the right vertebral artery. Left vertebral was not imaged. Ernesto Doss MD Assessment and Plan Disease Oriented Problem List: (1) confusion/hallucinations, new onset, ?delirium, without apparent infection (2) electrolyte (potassium and calcium) imbalances (3) bladder cancer July 2016, high-grade muscle invasive urothelial cancer (4) S/P recent completion of cisplatin and Gemzar cycles (5) peripheral arterial disease, severe (6) carotid vascular disease (7) anemia (8) history of alcohol abuse last year and in previous years, only occasional alcohol recently (9) insulin-dependent diabetes (10) Hypertension (11) glaucoma (12) history of prostate cancer, s/p radiation (13) hyperlipidemia (14) remote history of CVA (15) depression Symptom Scale: (1) pain 0-10 Scale: 1 (back pain when he is ambulating) (2) weakness 0-10 Scale: Unable to quantify (global fatigue and weakness) (3) confusion/delirium 0-10 Scale: 3 (persistent confusion) Pertinent Non-Medical Issues Psychosocial: Spiritual: The patient has a Anabaptism background, and he has attended a local jain intermittently. He is not affiliated with any particular jain or clergy at this time. He is open to energy systems engineer visits. Legal: The patient is confused and is still having visual hallucinations, but he is aware of his malignancy, the plan for surgery, and the serious nature of it. I'm not convinced that he has total capacity for making decisions regarding complex medical issues, but he certainly has capacity to identify a health care surrogate and to participate in all forms of medical decision making with his HCS. Ethical issues impacting care: None. Important Contacts Friend and HCS: Donna Chambers [phone] Son: Amadeo Valente [phone] [facility]eg[facility] Julia Zavaleta . Prognosis The patient's overall prognosis is somewhat guarded in the long-term. He is in the midst of aggressive treatment for his invasive bladder cancer, and now has had some worsening weakness in the face of confusion and possible delirium. . Code Status: Full Code Plan * FULL CODE * DECISION-MAKING: The patient is confused and is still having intermittent visual hallucinations, but he is aware of his malignancy, the plan for surgery, and the serious nature of it. I believe decision-making should include participation with his HCS Donna Chambers. * GOALS: The patient definitely wants "to get better," and wants to continue with the plan to follow-up at the [facility] for probable surgery now that he has finished the scheduled chemotherapy. * SYMPTOMS: * His delirium is worsening: * -- He has no obvious infection. * -- There is no history of head trauma or any signs of trauma visible on the CT. * -- He is said to have had a BM yesterday, and he has been voiding okay. * -- His potassium, calcium, and magnesium deficits have been corrected. * -- We know that 30-40% of hospitalized elderly patients develop delirium, but his confusion and hallucinations started prior to the hospitalization (but now are worsening). * -- He has had alcohol problems in the past, but he says he has consumed less than 1 beer per day over the past 10 months, so that seems unlikely as a cause of his delirium now. * -- The only new medicines here were Rocephin at the time of admission, and the addition of Risperdal - the delirium has worsened while on the Risperdal. * -- He has known significant carotid vascular disease and has an old lacunar infarct on CT scan; I wonder if he may have had another cerebrovascular event - would an MRI help? * Dr. Dumont's input appreciated. * Palliative Care will continue to follow the patient during this hospitalization. . Time Spent Total Floor Time (mins): 39 Face to Face Time (mins): 20 >50% Counseling/Coord of Care: Yes Attestation To help prompt me to consider important information that might be impacting today's encounter and assessment, information from prior notes written by myself or my colleagues may have been "brought forward" into today's note. My signature on this note, however, is an attestation that I personally performed the exam, history, and/or decision-making noted today, and, unless otherwise indicated, the interactions with patient, family, and staff as well as the review of records all occurred today. I also attest that the listed assessment and stated plan reflect my best clinical judgment today based on the combination of historical information, prior notes, and today's exam/ interactions. When time spent is documented, it refers only to time spent today by the signer, or if indicated, combined time spent today by collaborating physician/nurse practitioner. Phyllis Pope MD Feb 09, 2017 13:00
--- NOTE | 2017-02-09 15:42 | PD.ONC.PN ---
Subjective Subjective Remarks Afebrile Still having momentary lapses in orientation Attending has placed order to send him to inpatient psych unit. Objective Data Date Time Temp Pulse Resp B/P (MAP) Pulse Ox O2 Delivery O2 Flow Rate FiO2 02/09/17 10:59 112 02/09/17 08:59 Room Air 02/09/17 04:00 97.6 113 20 161/74 (103) 93 02/09/17 00:13 190/90 (123) 02/09/17 00:00 113 02/08/17 23:50 98.2 112 20 200/100 (133) 92 02/08/17 22:13 190/80 (116) 02/08/17 20:00 98.3 114 18 190/80 (116) 91 02/08/17 18:18 Room Air 02/08/17 16:25 112 02/08/17 16:04 98.1 109 19 148/87 (107) 94 02/09/17 02/09/17 02/09/17 07:00 15:00 23:00 Intake Total 1240 ml Output Total 300 ml Balance 940 ml Result Diagram: 02/09/17 0739 02/09/17 0739 Laboratory Results Laboratory Tests Test 02/09/17 07:39 02/09/17 12:00 White Blood Count 9.4 TH/MM3 Red Blood Count 3.07 MIL/MM3 Hemoglobin 9.5 GM/DL Hematocrit 28.3 % Mean Corpuscular Volume 92.2 FL Mean Corpuscular Hemoglobin 31.0 PG Mean Corpuscular Hemoglobin Concent 33.6 % Red Cell Distribution Width 21.3 % Platelet Count 392 TH/MM3 Mean Platelet Volume 8.1 FL Neutrophils (%) (Auto) 81.7 % Lymphocytes (%) (Auto) 6.5 % Monocytes (%) (Auto) 11.5 % Eosinophils (%) (Auto) 0.1 % Basophils (%) (Auto) 0.2 % Neutrophils # (Auto) 7.7 TH/MM3 Lymphocytes # (Auto) 0.6 TH/MM3 Monocytes # (Auto) 1.1 TH/MM3 Eosinophils # (Auto) 0.0 TH/MM3 Basophils # (Auto) 0.0 TH/MM3 CBC Comment DIFF FINAL Differential Comment Blood Urea Nitrogen 17 MG/DL Creatinine 0.98 MG/DL Random Glucose 209 MG/DL Total Protein 5.5 GM/DL Albumin 2.4 GM/DL Calcium Level 7.8 MG/DL Magnesium Level 1.6 MG/DL Alkaline Phosphatase 74 U/L Aspartate Amino Transf (AST/SGOT) 27 U/L Alanine Aminotransferase (ALT/SGPT) 16 U/L Total Bilirubin 0.4 MG/DL Sodium Level 141 MEQ/L Potassium Level 5.4 MEQ/L Chloride Level 111 MEQ/L Carbon Dioxide Level 20.2 MEQ/L Anion Gap 10 MEQ/L Estimat Glomerular Filtration Rate 75 ML/MIN Culture Results Microbiology Date/Time Source Procedure Growth Status 02/06/17 17:30 Urine Random Urine Urine Culture - Final NO GROWTH IN 48 HOURS. Complete Administered Medications Medications (Trade) Dose Ordered Sig/Myrna Route PRN Reason Start Time Stop Time Status Last Admin Dose Admin Sodium Chloride (NS Flush) 2 ml BID IV FLUSH 02/06/17 21:00 02/07/17 21:00 Heparin Sodium (Porcine) (Heparin Inj) 5,000 units Q8H SQ 02/06/17 22:00 02/09/17 12:51 Insulin Aspart (NovoLOG SUPPLEMENTAL SCALE) 1 ACHS SLIDING SCALE SQ 02/06/17 21:00 02/09/17 12:00 Hydralazine HCl (Apresoline Inj) 10 mg Q6H PRN IV PUSH SEE LABEL COMMENTS 02/06/17 19:45 02/09/17 00:14 Dorzolamide HCl (Trusopt 2% Opth Soln) 1 drop BID RIGHT EYE 02/06/17 21:00 02/09/17 09:00 Calcium Carbonate (Tums Chew) 500 mg Q12HR CHEW 02/06/17 21:00 02/09/17 09:55 Clonidine (Catapres) 0.1 mg Q6H PRN PO SBP>180, DBP>100, HR>65 02/07/17 08:45 02/08/17 22:11 Magnesium Oxide (Mag-Ox) 800 mg Q12HR PO 02/07/17 12:00 02/09/17 09:55 Risperidone (risperDAL) 0.5 mg Q12HR PO 02/08/17 21:00 02/09/17 09:56 Haloperidol Lactate (Haldol Inj) 2 mg Q8H PRN IM agitation 02/08/17 12:45 02/09/17 09:56 Thiamine HCl (Vitamin B1) 100 mg DAILY PO 02/08/17 18:00 02/11/17 18:00 02/09/17 09:56 Amlodipine Besylate (Norvasc) 10 mg DAILY PO 02/08/17 09:00 02/09/17 09:00 Objective Remarks GENERAL: Older male, resting in bed in no acute distress with visitors present. SKIN: Warm and dry. HEAD: Normocephalic. EYES: No scleral icterus. No injection or drainage. NECK: Supple, trachea midline. No JVD or lymphadenopathy. CARDIOVASCULAR: Regular rate and rhythm without murmurs. RESPIRATORY: Breath sounds equal bilaterally. No accessory muscle use. GASTROINTESTINAL: Abdomen soft, non-tender, nondistended. EXTREMITIES: No cyanosis. L AKA. No edema. MUSCULOSKELETAL: Adequate muscle tone. NEUROLOGICAL: Awake and alert. Normal speech. Some periods of confusion but pt quickly re-orients himself. Assessment/Plan Problem List: (1) Bladder cancer ICD Codes: C67.9 - Malignant neoplasm of bladder, unspecified Status: Acute Plan: 02/09/17: Pt has just finished neoadjuvant chemotherapy and has an appt to see a specialist at [facility] in March for 2nd opinion. No oncologic interventions planned this admission. Pt being transferred to inpatient psych unit as he was having hallucinations. This is likely due to metabolic encephalopathy. He has never had a history of psychiatric problems in the past. -- Diagnosed in August 2016 with urinary bladder cancer after he presented with hematuria -- CT A/P showed 3.6cm mass in the left lateral bladder wall -- Pathology showed T2 high-grade muscle invasive urothelial bladder cancer -- He has just completed 4 cycles of neoadjuvant chemotherapy with cisplatin and Gemzar last week. -- Metabolic encephalopathy likely due to electrolyte imbalances from cisplatin chemotherapy. -- The only option for possible cure is neoadjuvant chemotherapy followed by radical cystectomy as he previously had radiation to the area for a history of prostate cancer. (2) Hypertension ICD Codes: I10 - Hypertension Plan: -- Last BP showed systolic BP in the 140's -- On Amlodipine (3) electrolyte (potassium and calcium) imbalances Plan: -- Likely due to Cisplatin chemotherapy -- Largely causing his encephalopathy Assessment 76 y/o male with history of muscle invasive urinary bladder cancer admitted for AMS Attending Statement LATE ENTRY ( computer was down ) PT WAS SEEN YESTERDAY The exam, history, and the medical decision-making described in the above note were completed with the assistance of the mid-level provider. I reviewed and agree with the findings presented. I attest that I had a [id number] encounter with the patient on the same day, and personally performed and documented my assessment and findings in the medical record. pt has hallucinations, confuse psych wants him to go to med psych Electrolytes have improved. Recommend MRI brain Breonna García Feb 09, 2017 15:42 Denny Dumont MD Feb 10, 2017 10:41
--- NOTE | 2017-02-09 15:58 | HHI.PR ---
Subjective Remarks Pleasantly confused and with hallucination visual hallucinations patient picks imaginary things from the bed and he is handing it to me. No agitation. No fever or chills. Eating better.No n/v/d/c. No seizures. Objective Vitals Vital Signs Date Time Temp Pulse Resp B/P (MAP) Pulse Ox O2 Delivery O2 Flow Rate FiO2 02/09/17 15:26 111 02/09/17 10:59 112 02/09/17 08:59 Room Air 02/09/17 04:00 97.6 113 20 161/74 (103) 93 02/09/17 00:13 190/90 (123) 02/09/17 00:00 113 02/08/17 23:50 98.2 112 20 200/100 (133) 92 02/08/17 22:13 190/80 (116) 02/08/17 20:00 98.3 114 18 190/80 (116) 91 02/08/17 18:18 Room Air 02/08/17 16:25 112 02/08/17 16:04 98.1 109 19 148/87 (107) 94 I/O 02/08/17 02/08/17 02/08/17 02/09/17 02/09/17 02/09/17 07:00 15:00 23:00 07:00 15:00 23:00 Intake Total 1331 ml 1240 ml Output Total 525 ml 300 ml Balance 1331 ml -525 ml 940 ml Intake Oral 60 ml 240 ml IV Total 1271 ml 1000 ml Output Urine Total 525 ml 300 ml Bladder Scan Volume Amount 86 ml # Voids 1 3 # Bowel Movements 0 Result Diagram: 02/09/17 0739 02/09/17 0739 Imaging Last Impressions Neck CTA 02/07/17 0000 Signed Impressions: Service Date/Time: Tuesday, February 07, 2017 14:14 - CONCLUSION: No evidence of significant carotid bifurcation stenosis on either side. There is moderate stenotic disease involving the lower cervical common carotid artery on the left , the high cervical and proximal petrous internal carotid artery on the right and the proximal vertebral artery on the left. Luke Bourne MD Ankle X-Ray 02/06/17 5870 Signed Impressions: Service Date/Time: Monday, February 06, 2017 17:17 - CONCLUSION: Negative for fracture. Bennett Ibarra MD FACR Head CT 02/06/176 Signed Impressions: Service Date/Time: Monday, February 06, 2017 17:57 - CONCLUSION: 1. 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 2. Mild, acute mastoiditis on the right. 3. Otherwise, no acute intracranial process. Ernesto Doss MD Chest X-Ray 02/06/171655 Signed Impressions: Service Date/Time: Monday, February 06, 2017 17:05 - CONCLUSION: Compensated cardiomegaly otherwise negative Bennett Ibarra MD FACR Carotid Artery Ultrasound 02/06/17 0000 Signed Impressions: Service Date/Time: Monday, February 06, 2017 21:43 - CONCLUSION: 1. Incomplete examination. Patient refused further imaging. 2. I'm concerned there may be occlusion of the right internal carotid artery. Dense calcification in the left carotid bulb with no Doppler evaluation of the left carotid system. 3. Antegrade flow in the right vertebral artery. Left vertebral was not imaged. Ernesto Doss MD Objective Remarks GENERAL: male lying in bed in a well-developed and well-nourished, pleasantly confused. SKIN: No rashes, ecchymoses or lesions. Cool and dry. CARDIOVASCULAR: Regular rate and rhythm without murmurs, gallops, or rubs. RESPIRATORY: Clear to auscultation. Breath sounds equal bilaterally. No wheezes , rales, or rhonchi. GASTROINTESTINAL: Abdomen soft, non-tender, nondistended. No guarding. MUSCULOSKELETAL: 1+ pitting edema to the mid adams of the right lower extremity. Left lower extremity with AKA. No calf tenderness. Negative Homans sign bilaterally. NEUROLOGICAL: Awake and alert. Cranial nerves II through XII intact. Motor and sensory grossly within normal limits. Normal speech. Procedures none A/P Problem List: (1) Syncope ICD Code: R55 - Syncope and collapse Status: Acute (2) Unspecified psychosis ICD Code: F29 - Unspecified psychosis not due to a substance or known physiological condition Assessment and Plan 76-year-old male with insulin-dependent diabetes mellitus, hypertension and bladder cancer presents after syncopal episode with hypertensive crisis. Syncopal episode 2. He was noted orthostatic on admission (SBP 180 down to 110 upon standing) likely from dehydration. Hold Norvasc. Continue IV hydration. Repeat orthostatic vital signs Head CT without acute intracranial process Carotid ultrasound incomplete concerning for carotid stenosis obtain CTA, echocardiogram pending. Check EEG to Monitor on telemetry Hypokalemia, hypomagnesemia and hypocalcemia. Replaced Status post by mouth supplementation in the ED Aggressive replacement Follow-up BMP and monitor on telemetry Hypertensive crisis. Resolved Monitor and adjust BP medications as needed. Restart Norvasc UTI Urine culture negative DC Rocephin Insulin-dependent diabetes mellitus Continue home insulin SSI Bladder cancer Patient received his last chemotherapy last Monday Is scheduled to be seen at [facility] for cystectomy Oncologist is Dr. Dumont Anemia H&H 8.9/26.1 At baseline Follow CBC Transfuse when necessary Visual hallucination. Agitation Lopez Acted. Psychiatry has recommended Risperdal. EEG normal. Risperdal increased per psych also on haldol prn. Plan to admit to inpatient psych for further management. FEN NS + 40 KCl at 84 cc/hr. DC IVF . Encouraged PO intake. Heart healthy diet Electrolytes: as above Heparin SQ for DVT ppx. Early ambulation. Discharge Planning Patient appears stable medically. DC to inpatient psych Suzanna Koehler MD Feb 09, 2017 15:58
== END 2017-02-09 20:30 | DRG 304 ==
LOC: NEPE 15:15 → NEDA 19:40 → N04A 20:36
PROVIDERS: ADMIT Hospitalist; ATTEND Hospitalist
DX: I16.9 Hypertensive crisis, unspecified (principal); G93.41 Metabolic encephalopathy; E11.51 Type 2 diabetes mellitus with diabetic peripheral angiopathy without gangrene; C67.9 Malignant neoplasm of bladder, unspecified; E83.51 Hypocalcemia; E83.42 Hypomagnesemia; I65.23 Occlusion and stenosis of bilateral carotid arteries; E86.0 Dehydration; F32.9 Major depressive disorder, single episode, unspecified; I95.1 Orthostatic hypotension; F29 Unspecified psychosis not due to a substance or known physiological condition; D64.9 Anemia, unspecified; I10 Essential (primary) hypertension; E87.6 Hypokalemia; H40.9 Unspecified glaucoma; Z51.5 Encounter for palliative care; E78.5 Hyperlipidemia, unspecified; T45.1X5A Adverse effect of antineoplastic and immunosuppressive drugs, initial encounter; H91.91 Unspecified hearing loss, right ear; I25.10 Atherosclerotic heart disease of native coronary artery without angina pectoris; Z85.46 Personal history of malignant neoplasm of prostate; Z92.3 Personal history of irradiation; W06.XXXA Fall from bed, initial encounter; Z89.612 Acquired absence of left leg above knee; Z79.4 Long term (current) use of insulin; Z87.891 Personal history of nicotine dependence; K21.9 Gastro-esophageal reflux disease without esophagitis; Z86.73 Personal history of transient ischemic attack (TIA), and cerebral infarction without residual deficits; Z87.442 Personal history of urinary calculi; Z95.5 Presence of coronary angioplasty implant and graft
CPT/HCPCS: 70450; 70498; 71010; 73600; 80048; 80053; 80307; 81001; 82550; 82552; 82948; 83735; 84155; 84484; 85025; 85610; 85730; 86850; 86900; 86901; 87086; 87641; 93005; 93306; 93880; 95819; 96360; J0360; J0696; J1630; J1644; J1815; J3475; J3480; J7030; Q9967

== ENCOUNTER 2017-02-09 22:00 | Inpatient (IN) | payer OTHER, MEDICARE ==
[~2017-02-09] VITALS: Ht 165.1 cm; Wt 84.3 kg
[2017-02-09 21:30] VITALS: BP 143/79; PULSE 102; RESP 15; TEMP 97.9; O2SAT 93
[~2017-02-09 22:00] MED LIST changes: +AMLO10TA2 PO; +RISP0.5T25 PO; +TEMA15CA PO; +THIA100 PO
[2017-02-09] MEDS ORDERED: OLANZapine IM 10 MG VIAL IM ONE (22:30)
[2017-02-09] MEDS ORDERED: MAGNESIUM HYDROXIDE SUSP 30 ML CUP PO PRN (22:30)
[2017-02-09] MEDS ORDERED: ACETAMINOPHEN 325 MG TAB PO PRN (22:30)
[2017-02-09] MEDS ORDERED: ALUMINUM/MAGNESIUM/SIMETH 30 ML CUP PO PRN (22:30)
[2017-02-09] MEDS ORDERED: RESP: ALBUTEROL 2.5 MG/IPRATROPIUM 0.5 MG NEB (PRN) NEB (23:15)
[2017-02-10 03:12] VITALS: BP 182/74; PULSE 108; RESP 30; TEMP 98.2; O2SAT 93
[2017-02-10] MEDS ORDERED: FUROSEMIDE 40 MG/4 ML VIAL IV PUSH ONE (03:30)
[2017-02-10] MEDS: RESP: ALBUTEROL 2.5 MG/IPRATROPIUM 0.5 MG NEB (PRN) NEB (03:39)
--- NOTE | 2017-02-10 04:34 | RADRPT ---
EXAM DATE/TIME: 02/10/2017 03:43 [place] COMPARISON: CHEST SINGLE AP, February 06, 2017, 17:05. INDICATIONS : Shortness of breath MEDICAL HISTORY : Cerebrovascular disease. Cardiovascular disease Diabetes mellitus type 2. SURGICAL HISTORY : Cholecystectomy. ENCOUNTER: Initial ACUITY: 4 - 6 days PAIN SCORE: 8/10 LOCATION: Bilateral chest FINDINGS: Portable AP view of the chest demonstrates a normal-sized cardiac silhouette. Right chest wall. A por t is present. There is mild right basilar opacity. No pneumothorax is identified. Bones and soft tiss ues demonstrate no acute finding. CONCLUSION: There is new opacity at the right lung base that could represent atelectasis or airspace consolidatio n. Luke Arnold MD on February 10, 2017 at 4:32 Board Certified Radiologist. This report was verified electronically.
[2017-02-10 06:15] VITALS: BP 129/57; PULSE 110; RESP 20; TEMP 97.9; O2SAT 95
[2017-02-10] MEDS ORDERED: DEXTROSE 50% IN WATER 50 ML VIAL(D50) IV PUSH PRN (07:30)
[2017-02-10] MEDS ORDERED: GLUCAGON 1 MG/ML VIAL OTHER PRN (07:30)
--- NOTE | 2017-02-10 07:51 | PD.CONS ---
HPI Service [facility] Consult Requested By Dr Tolentino Reason for Consult medical management Primary Care Physician Non-Staff Diagnoses: History of Present Illness 76-year-old male with a past medical history significant for bladder cancer, hypertension and insulin-dependent diabetes mellitus resents to the emergency department after a syncopal episode. The patient states that he was sitting in the sun when he passed out. He states he felt lightheaded and dizzy and does not remember the rest. A neighbor called 911. He also had a syncopal episode previously resulting in him falling out of the bed. He denies any chest pain/ pressure. The patient was found to be hypertensive in the emergency department with a blood pressure of 231/105. He denies any headaches or blurry vision. Per his material combiner on admission he has been confused since the incident. Patient was admitted inpatient and work up negative so far. He was subsequently discharged to inpatient psych as he is with visual hallucinations. He is currently A&O 3 however with hallucinations. He was noted with sob overnight, CXR with poss PNA, started on levaquin. He also received lasix overnight. Patient is still with some sob however says he feels much better.No fever ro chills. He has no cough. He iws pleasantly confused and is trying to pick immaginary things from the table. He was however able to eat his breakfast. he is noted with decreased urine OP will consult urology as patient with h/o bladder CA . f/u at [facility] per oncology Dr Dumont. 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 benazepril (Unverified Adverse Reaction, Intermediate, Cough, 02/06/17) captopril (Unverified Adverse Reaction, Intermediate, Cough, 02/06/17) enalaprilat (Unverified Adverse Reaction, Intermediate, Cough, 02/06/17) fosinopril (Unverified Adverse Reaction, Intermediate, Cough, 02/06/17) lisinopril (Unverified Adverse Reaction, Intermediate, Cough, 02/06/17) quinapril (Unverified Adverse Reaction, Intermediate, Cough, 02/06/17) Past Medical History Insulin-dependent diabetes mellitus Hypertension Glaucoma Bladder cancer, last chemotherapy Monday History of prostate cancer status post radiation Past Surgical History Cholecystectomy 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 Lantus Inj (Insulin Glargine) 1,000 Unit/10 Ml Vial 30 Units SQ HS Lantus Inj (Insulin Glargine) 1,000 Unit/10 Ml Vial 25 Units SQ DAILY Family History Denies family history of diabetes/heart disease Social History 20 pack year history of smoking, quit 30 years ago. Denies alcohol or illicit drugs. Physical Exam Vital Signs Vital Signs Date Time Temp Pulse Resp B/P (MAP) Pulse Ox O2 Delivery O2 Flow Rate FiO2 02/10/17 06:15 97.9 110 20 129/57 (81) 95 02/10/17 03:12 98.2 108 30 182/74 (110) 93 02/09/17 21:30 97.9 102 15 143/79 (100) 93 Physical Exam GENERAL: This is a well-nourished, well-developed patient, sitting up in the bed , with some sob. SKIN: No rashes, ecchymoses or lesions. Cool and dry. HEAD: Atraumatic. Normocephalic. No temporal or scalp tenderness. EYES: Pupils equal round and reactive. Extraocular motions intact. No scleral icterus. No injection or drainage. ENT: Nose without bleeding, purulent drainage or septal hematoma. Throat without erythema, tonsillar hypertrophy or exudate. Uvula midline. Airway patent. NECK: Trachea midline. No JVD or lymphadenopathy. Supple, nontender, no meningeal signs. CARDIOVASCULAR: Regular rate and rhythm without murmurs, gallops, or rubs. RESPIRATORY: Decreased breath sounds. No wheezes, rales, or rhonchi. GASTROINTESTINAL: Abdomen soft, non-tender, nondistended. No hepato-splenomegaly , or palpable masses. No guarding. MUSCULOSKELETAL: Extremities without clubbing, cyanosis.1+ RLE edema. Left lower extremity with AKA. No joint tenderness, effusion, or edema noted. No calf tenderness. Negative Homans sign on right. NEUROLOGICAL: Awake and alert. Pleasantly confused with visual hallucinations. Cranial nerves II through XII intact. Motor and sensory grossly within normal limits. Normal speech. Imaging Last Impressions Chest X-Ray 02/10/17 0000 Signed Impressions: Service Date/Time: Friday, February 10, 2017 03:43 - CONCLUSION: There is new opacity at the right lung base that could represent atelectasis or airspace consolidation. Luke Arnold MD Assessment and Plan Assessment and Plan 76-year-old male with insulin-dependent diabetes mellitus, hypertension and bladder cancer presents after syncopal episode with hypertensive crisis. Visual hallucination. Risperdal. EEG was normal. Management per psych Syncopal episode 2. He was noted orthostatic on admission to the ED (SBP 180 down to 110 upon standing) likely from dehydration and also with hypertensive crisis on admission. Resolved. Monitor and adjust BP medications as needed. Continue Norvasc. Head CT without acute intracranial process Carotid ultrasound incomplete concerning for carotid stenosis obtain CTA, echocardiogram nl . EEG normal Hyperkalemia: give kayexalate x1 time. He also received lasix x 1 time. Monitor K level. Monitor electrolytes. Possible PNA: check blood cx, sputum cultures. However patient was treated with rocephin while inpatient as suspicious for UTI on admission, urine cultures were negative and Rocephin was DCd. Start levaquin IV Monitor blood cx however might be neg. no signs of sepsis. Sputum cultures Insulin-dependent diabetes mellitus a1c is 7.7 , uncontrolled DM Continue home insulin SSI Bladder cancer Patient received his last chemotherapy ~2 weeks ago Is scheduled to be seen at [facility] for cystectomy Oncologist is Dr. Dumont Will consult urology as patient with urinary retention Anemia H&H 8.9/26.1 H/H At baseline Follow CBC Transfuse when necessary Will check iron panel, b12 and folate , likely anemia is of chronic disease DVT ppx. Early ambulation. Thank you for this consultation will follow along Discussed Condition With patient, nurse Suzanna Koehler MD Feb 10, 2017 07:51
[2017-02-10] MEDS: INSULIN ASPART SUPPLEMENTAL SCALE SQ SCH ×4 (08:00→21:53)
[2017-02-10] MEDS: DORZOLAMIDE 2% OPTH SOLN 200 DROP/10 ML BTLO RIGHT EYE SCH ×2 (09:00→21:52)
[2017-02-10] MEDS: NICOTINE 21 MG/24 HR PATCH T-DERMAL SCH (09:00)
[2017-02-10] MEDS: risperiDONE 0.5 MG TAB PO SCH ×2 (09:00→21:52)
[2017-02-10] MEDS: THIAMINE HCL 100 MG TAB PO SCH (09:22)
[2017-02-10 10:00] LABS: ANION GAP 13 MEQ/L (5-15); BICARBONATE 17.5 MEQ/L (21.0-32.0); BLOOD UREA NITROGEN 25 MG/DL (7-18); CHLORIDE 112 MEQ/L (98-107); GLOMERULAR FILTRATION RATE 54 ML/MIN (>89); POTASSIUM 5.5 MEQ/L (3.5-5.1); SODIUM (NA) 142 MEQ/L (136-145)
[2017-02-10 10:05] LABS: HDL CHOLESTEROL 66.3 MG/DL (40.0-60.0); LDL CHOLESTEROL 140 MG/DL (0-99)
[2017-02-10 11:45] LABS: HEMOGLOBIN A1a 1.1 %; HEMOGLOBIN A1b 0.8 %; HEMOGLOBIN Ao 81.9 %; HEMOGLOBIN F 1.3 %; HEMOGLOBIN LA1C 2.7 %; HEMOGLOBIN P3 4.1 %
[2017-02-10] MEDS: LEVOFLOXACIN 750 MG PREMIX INJ 150 ML IV SCH (12:00)
--- NOTE | 2017-02-10 12:37 | HHI.HP ---
Provisional Diagnosis Admission Date Feb 09, 2017 at 22:00 [place] I. Unspecified psychosis, rule out delirium Certification of Person's Competence To Provide Express and Informed Consent I have personally examined Eric Valente , a person being served at [facility] on, Feb 10, 2017 12:22. Express and informed consent means consent voluntarily given in writing, by a competent person, after sufficient explanation and disclosure of the subject matter involved to enable the person to make a knowing and willful decision without any element of force, fraud, deceit, duress, or other form of constraint or coercion. This person is 18 years of age or older, is not now known to be incompetent to consent to treatment with a guardian advocate, and does not have a health care surrogate or proxy currently making medical treatment decisions. I have found this person to be one of the following: [] Competent to provide express and informed consent, as defined above, for voluntary admission to this facility and is competent to provide express and informed consent for treatment. He/she has the consistent capacity to make well reasoned, willful, and knowing decisions concerning his or her medical or mental health treatment. The person fully and consistently understands the purpose of the admission for examination/placement and is fully capable of personally exercising all rights assured [place] [x] Incompetent to provide express and informed consent to voluntary admission, and this is incompetent to provide express and informed consent to treatment. The person must be transferred to involuntary status and a petition for a guardian advocate filed with the Circuit Court. [] Refusing to provide express and informed consent to voluntary admission but is competent to provide express and informed consent for treatment. The person must be discharged or transferred to involuntary status. Form shall be completed within 24 hours of a person's arrival at the receiving facility and filed in the clinical record of each person: 1. Admitted on a voluntary basis 2. Permitted to provide express and informed consent to his/her own treatment 3. Allowed to transfer from involuntary to voluntary status 4. Prior to permitting a person to consent to his or her own treatment after having been previously found incompetent to consent to treatment. History of Present Illness Capacity: Lacks Capacity HPI Patient is a 76-year-old man, , retired also [employer], domiciled alone, no past psychiatric history, past medical history is negative for current bladder cancer, hypertension, insulin-dependent diabetes melitis, who was admitted to medicine prior to transfer to medical/psychiatry unit for syncope, hypokalemia, hypocalcemia, anemia, UTI, and hypertensive crisis which during his admission had experienced visual hallucinations which psychiatry was consulted for evaluation. Upon psychiatric evaluation on the medical floor patient continue with visual hallucinations noted to be disorganized, along with paranoid ideations internally preoccupied which patient was started on risperidone and titrated to 0.5 mg by mouth twice a day and transferred to inpatient psychiatry unit for further evaluation and management. Patient was found lying in hospital bed, stating feeling "okay" alert and oriented only to person and place but was unclear about the year. Patient noted to have some labored breathing and states feeling short of breath. Patient endorses have having visual hallucinations of people he knows and has some insight of them being hallucinations but noted to be interacting with things that are not there such as motioning to clam picker a cup been drinking it. When asked what is he is drinking he states "I'm drinking milk". Patient endorses auditory hallucinations but was not able to express what the last and he heard them states that his last time he had visual hallucinations of people he knows was last evening patient states that he is here in the hospital because of his "heart and diabetes". Patient continues to make some nonsensical statements. Patient states that the person closest to him and involved in his care will be his cousin Donna. Past psychiatric history: Denies Substance use history: Remote tobacco use, alcohol abuse in the past but drinks less than one drink per day for the past 10 years. Denies use of any illicit drug use Past medical history: Bladder cancer, hypertension, IDDM Allergies: benazepril, captopril, enalaprilat, fosinopril, lisinopril, quinapril Social history: , retired, on social security benefits, born and raised in [place], lives alone, height medication is some college, Shinto. Review of Systems Respiratory: COMPLAINS OF: Shortness of breath Except as stated in HPI: all other systems reviewed are Neg Past Psych History Violence risk - others (6 mos) Low Violence risk - self (6 mos) Low Substance Abuse History Drugs/Alcohol past 12 months Remote tobacco use, alcohol abuse in the past but drinks less than one drink per day for the past 10 years. 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 benazepril (Unverified Adverse Reaction, Intermediate, Cough, 02/06/17) captopril (Unverified Adverse Reaction, Intermediate, Cough, 02/06/17) enalaprilat (Unverified Adverse Reaction, Intermediate, Cough, 02/06/17) fosinopril (Unverified Adverse Reaction, Intermediate, Cough, 02/06/17) lisinopril (Unverified Adverse Reaction, Intermediate, Cough, 02/06/17) quinapril (Unverified Adverse Reaction, Intermediate, Cough, 02/06/17) Active Scripts Risperidone (Risperdal) 0.5 Mg Tab, 0.5 MG PO Q12HR for anxiety/depression , # 60 TAB Prov:Suzanna Koehler MD 02/09/17 Thiamine HCl (Gnp Vitamin B-1) 100 Mg Tab, 100 MG PO DAILY for Nutritional Supplement, #30 TAB Prov:Suzanna Koehler MD 02/09/17 Reported Medications Amlodipine (Amlodipine) 10 Mg Tab, 10 MG PO DAILY for Blood Pressure Management , TAB 0 Refills 02/06/17 Multiple Vitamins W/ Minerals (Preservision Areds) 1 Tab, 2 TAB PO DAILY for Nutritional Supplement, TAB 0 Refills 10/13/16 Dorzolamide Opth Drops (Dorzolamide Opth Drops) 2% Soln, 1 DROP RIGHT EYE BID for Glaucoma, #1 BOTTLE 0 Refills 10/13/16 Latanoprost Opth Drops (Latanoprost Opth Drops) 0.005% Drops, 1 DROP RIGHT EYE HS for Glaucoma, #2.5 ML 0 Refills Refrigerate until opened. 10/13/16 Insulin Glargine Inj (Lantus Inj) 1,000 Unit/10 Ml Vial, 30 UNITS SQ HS for Blood Sugar Management, VIAL 0 Refills 10/13/16 Insulin Glargine Inj (Lantus Inj) 1,000 Unit/10 Ml Vial, 25 UNITS SQ DAILY for Blood Sugar Management, VIAL 0 Refills 10/13/16 Discontinued Reported Medications Temazepam (Temazepam) 15 Mg Cap, 15 MG PO HS Y for INSOMNIA, CAP 0 Refills 02/06/17 Current Medications Medications (Trade) Dose Ordered Sig/Myrna Route Start Time Stop Time Status Last Admin (Tylenol) 650 mg Q4H PRN PO 02/09/17 22:30 (Milk Of Magnesia Liq) 30 ml DAILY PRN PO 02/09/17 22:30 (Mag-Al Plus Susp Liq) 30 ml Q6H PRN PO 02/09/17 22:30 (Habitrol 21 Mg Patch.24 Hr) 1 patch DAILY T-DERMAL 02/10/17 09:00 Miscellaneous Information 1 HS T-DERMAL 02/10/17 21:00 (Duoneb Neb) 1 ampule Q2HR NEB PRN NEB 02/10/17 03:30 02/10/17 03:39 (Norvasc) 10 mg DAILY PO 02/10/17 09:00 02/10/17 09:22 (Trusopt 2% Opth Soln) 1 drop BID RIGHT EYE 02/10/17 09:00 (Xalatan 0.005% Opth Soln) 1 drop HS RIGHT EYE 02/10/17 21:00 (risperDAL) 0.5 mg Q12HR PO 02/10/17 09:00 (Vitamin B1) 100 mg DAILY PO 02/10/17 09:00 02/10/17 09:22 (D50w (Vial) Inj) 50 ml UNSCH PRN IV PUSH 02/10/17 07:30 (Glucagon Inj) 1 mg UNSCH PRN OTHER 02/10/17 07:30 (NovoLOG SUPPLEMENTAL SCALE) 1 ACHS SLIDING SCALE SQ 02/10/17 08:00 02/10/17 08:00 Levofloxacin/ Dextrose 150 ml @ 100 mls/hr Q24H IV 02/10/17 12:00 Social History , retired, on social security benefits, born and raised in [place], lives alone, height medication is some college, Shinto. Patient's Strengths (min. 2) Verbal and communicative Physical Exam Patient not noted to be in acute distress but noted to have a increased respiratory rate, noted with left below the knee amputation, no gross motor abnormalities, no tremors or EPS, no noted psychomotor retardation or agitation. Vital Signs Vital Signs Date Time Temp Pulse Resp B/P (MAP) Pulse Ox O2 Delivery O2 Flow Rate FiO2 12/1/17 06:15 97.9 110 20 129/57 (81) 95 I/O 02/10/17 02/10/17 02/11/17 08:00 16:00 00:00 Intake Total 240 ml Balance 240 ml Lab Results Labs reviewed. Test 02/10/17 09:12 Blood Urea Nitrogen 25 MG/DL Creatinine 1.30 MG/DL Random Glucose 237 MG/DL Calcium Level 8.2 MG/DL Sodium Level 142 MEQ/L Potassium Level 5.5 MEQ/L Chloride Level 112 MEQ/L Carbon Dioxide Level 17.5 MEQ/L Anion Gap 13 MEQ/L Estimat Glomerular Filtration Rate 54 ML/MIN Hemoglobin A1c 7.7 % Triglycerides Level 117 MG/DL Cholesterol Level 230 MG/DL LDL Cholesterol 140 MG/DL HDL Cholesterol 66.3 MG/DL Cholesterol/HDL Ratio 3.46 RATIO Mental Status Examination Appearance: Appropriate Consciousness: Alert, Highly Distractible Orientation: Person, Place Speech: Hesitant Language: Other (patient on physical statements at times) Fund of Knowledge: Inadequate Attention and Concentration: Inadequate Memory: Impaired Mood: Other ("okay") Thought Process & Associations: Disorganized Thought Content: Hallucinations Hallucination Type: Visual Delusion Type: None Suicidal Ideation: No Suicidal Plan: No Suicidal Intention: No Homicidal Ideation: No Homicidal Plan: No Homicidal Intention: No Insight: Poor Judgment: Poor Assessment & Plan Problem List: (1) Unspecified psychosis ICD Codes: F29 - Unspecified psychosis not due to a substance or known physiological condition Assessment & Plan Patient is a 76-year-old man with a past psychiatric history with a recent medical admission for syncope, metabolic disturbances, past medical history of bladder cancer, hypertension, IDDM was transferred to the inpatient psychiatry unit for continue visual hallucinations, disorganization, internal preoccupation paranoid ideation. We'll start risperidone 0.5 mg by mouth twice a day for psychosis. Patient persistent psychotic symptoms despite medical stabilization get suspect to primary psychotic disorder or persistent psychotic symptoms related to recent delirium. It is possible the patient may be returning back to a delirious state at this time but has active psychotic symptoms at this time. Continue recommendations as per primary medical team. Petition for involuntary hospital physician started due to concern patient unable to care for self due to current symptomatology. Request for healthcare surrogate and guardian advocate documents completed will request second opinion. Collateral information pending Discharge planning in progress Discharge Planning Patient to be discharged back home once psychiatrically stable. Jeffy Tolnetino MD Feb 10, 2017 12:37
[2017-02-10 13:47] LABS: AUTOMATED NEUTROPHIL # 6.2 TH/MM3 (1.8-7.7); BASOPHIL % 0.3 % (0.0-2.0); HEMATOCRIT 24.8 % (39.0-51.0); HEMO FLAGS DIFF FINAL; LYMPH % 10.1 % (9.0-44.0); LYMPHOCYTE # 0.8 TH/MM3 (1.0-4.8); MEAN CELL VOLUME 93.5 FL (80.0-100.0); MEAN CORPUSCULAR HEMOGLOBIN 31.1 PG (27.0-34.0); MEAN CORPUSCULAR HGB CONC 33.3 % (32.0-36.0); NEUT % 76.6 % (16.0-70.0); PLATELET COUNT 446 TH/MM3 (150-450); RED BLOOD COUNT 2.65 MIL/MM3 (4.50-5.90); RED CELL DISTRIBUTION WIDTH 21.2 % (11.6-17.2); WHITE BLOOD COUNT 8.1 TH/MM3 (4.0-11.0)
[2017-02-10] MEDS ORDERED: SODIUM POLYSTYRENE SULFONATE SUSP 15 GM/60 ML CUP PO ONE (15:45)
--- NOTE | 2017-02-10 16:42 | EKG ---
Date Performed: 02/10/2017 Time Performed: 07:24:47 PTAGE: 76 years EKG: SINUS TACHYCARDIA WITH OCCASIONAL SUPRAVENTRICULAR PREMATURE COMPLEXES SEPTAL MYOCARDIAL IN FARCTION , PROBABLY OLD MODERATE T-WAVE ABNORMALITY, CONSIDER LATERAL ISCHEMIA MODERATE T-WAVE ABNORM ALITY, CONSIDER INFERIOR ISCHEMIA ABNORMAL ECG Compared to PREVIOUS TRACING , the ST segments are a bit more depressed, concerning for ischemia. Cli nical correlation suggested. PREVIOUS TRACIN02/06/2017 17.34 DOCTOR: Daria Linn Interpretating Date/Time 02/10/2017 16:40:53
[2017-02-10 18:00] VITALS: BP 150/66; PULSE 103; RESP 20; TEMP 97.3; O2SAT 95
[2017-02-10 18:36] LABS: TRANSFERRIN IRON PROFILE 168 MG/DL (200-360)
[2017-02-10 19:01] LABS: FERRITIN 410 NG/ML (26-388)
--- NOTE | 2017-02-10 19:29 | PD.CONS ---
HPI Service Urology Consult Requested By Reason for Consult Hx of bladder cancer Primary Care Physician Non-Staff Diagnosis: History of Present Illness 76yo male with history of muscle invasive bladder cancer who recently completed neoadjuvant chemotherapy now admitted for syncopal episode and psychosis. Patient is currently not oriented to place or time. He is able to answers questions, how with some nonsensical responses. He reports voiding well without issues, however nursing staff reports incontinence, No hematuria. He is scheduled to see [facility] for further treatment of his bladder cancer. Currently without fevers. Review of Systems ROS Limitations: Clinical Condition, Altered Mental Status, Poor Historian Constitutional: DENIES: Fever Endocrine: DENIES: Heat/cold intolerance Ears, nose, mouth, throat: DENIES: Hearing loss Respiratory: DENIES: Apneas Cardiovascular: DENIES: Chest pain Gastrointestinal: DENIES: Abdominal pain Genitourinary: COMPLAINS OF: Urinary incontinence Musculoskeletal: DENIES: Joint pain Integumentary: DENIES: Rash Hematologic/lymphatic: DENIES: Bruising Psychiatric: DENIES: Anxiety Except as stated in HPI: all other systems reviewed are Neg Past Family Social History Past Medical History Insulin-dependent diabetes mellitus Hypertension Glaucoma Bladder cancer, last chemotherapy Monday History of prostate cancer status post radiation Past Surgical History Cholecystectomy 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 benazepril (Unverified Adverse Reaction, Intermediate, Cough, 02/06/17) captopril (Unverified Adverse Reaction, Intermediate, Cough, 02/06/17) enalaprilat (Unverified Adverse Reaction, Intermediate, Cough, 02/06/17) fosinopril (Unverified Adverse Reaction, Intermediate, Cough, 02/06/17) lisinopril (Unverified Adverse Reaction, Intermediate, Cough, 02/06/17) quinapril (Unverified Adverse Reaction, Intermediate, Cough, 02/06/17) Active Ordered Medications Current Medications Medications (Trade) Dose Ordered Sig/Myrna Route Start Time Stop Time Status Last Admin (Tylenol) 650 mg Q4H PRN PO 02/09/17 22:30 (Milk Of Magnesia Liq) 30 ml DAILY PRN PO 02/09/17 22:30 (Mag-Al Plus Susp Liq) 30 ml Q6H PRN PO 02/09/17 22:30 (Habitrol 21 Mg Patch.24 Hr) 1 patch DAILY T-DERMAL 02/10/17 09:00 Miscellaneous Information 1 HS T-DERMAL 02/10/17 21:00 (Duoneb Neb) 1 ampule Q2HR NEB PRN NEB 02/10/17 03:30 02/10/17 03:39 (Norvasc) 10 mg DAILY PO 02/10/17 09:00 02/10/17 09:22 (Trusopt 2% Opth Soln) 1 drop BID RIGHT EYE 02/10/17 09:00 (Xalatan 0.005% Opth Soln) 1 drop HS RIGHT EYE 02/10/17 21:00 (risperDAL) 0.5 mg Q12HR PO 02/10/17 09:00 (Vitamin B1) 100 mg DAILY PO 02/10/17 09:00 02/10/17 09:22 (D50w (Vial) Inj) 50 ml UNSCH PRN IV PUSH 02/10/17 07:30 (Glucagon Inj) 1 mg UNSCH PRN OTHER 02/10/17 07:30 (NovoLOG SUPPLEMENTAL SCALE) 1 ACHS SLIDING SCALE SQ 02/10/17 08:00 02/10/17 08:00 Levofloxacin/ Dextrose 150 ml @ 100 mls/hr Q24H IV 02/10/17 12:00 02/10/17 12:00 Family History Denies family history of diabetes/heart disease Social History 20 pack year history of smoking, quit 30 years ago. Denies alcohol or illicit drugs. Physical Exam Vital Signs Date Time Temp Pulse Resp B/P (MAP) Pulse Ox O2 Delivery O2 Flow Rate FiO2 02/10/17 18:00 97.3 103 20 150/66 (94) 95 02/10/17 06:15 97.9 110 20 129/57 (81) 95 02/10/17 03:12 98.2 108 30 182/74 (110) 93 02/09/17 21:30 97.9 102 15 143/79 (100) 93 Physical Exam GENERAL: This is a well-nourished, well-developed patient, in no apparent distress. SKIN: No rashes, ecchymoses or lesions. HEAD: Atraumatic. Normocephalic. EYES: Extraocular motions intact. No scleral icterus. No injection or drainage. ENT: Nose without bleeding, purulent drainage. Airway patent. NECK: Trachea midline. CARDIOVASCULAR: Normal pulse RESPIRATORY: nonlabored, equal chest rise GASTROINTESTINAL: Abdomen soft, non-tender, nondistended. MUSCULOSKELETAL: Extremities without clubbing, cyanosis, or edema. NEUROLOGICAL: Awake, alrt, not oriented to place or time. Motor and sensory grossly within normal limits. Normal speech. Lab results reviewed: Yes Laboratory Tests Test 02/10/17 09:12 02/10/17 12:55 Blood Urea Nitrogen 25 Creatinine 1.30 Random Glucose 237 Calcium Level 8.2 Sodium Level 142 Potassium Level 5.5 Chloride Level 112 Carbon Dioxide Level 17.5 Anion Gap 13 Estimat Glomerular Filtration Rate 54 Hemoglobin A1c 7.7 Iron Level 22 Total Iron Binding Capacity 235 Percent Iron Saturation 9.4 Ferritin 410 Triglycerides Level 117 Cholesterol Level 230 LDL Cholesterol 140 HDL Cholesterol 66.3 Cholesterol/HDL Ratio 3.46 Vitamin B12 Level 413 Folate 12.0 White Blood Count 8.1 Red Blood Count 2.65 Hemoglobin 8.3 Hematocrit 24.8 Mean Corpuscular Volume 93.5 Mean Corpuscular Hemoglobin 31.1 Mean Corpuscular Hemoglobin Concent 33.3 Red Cell Distribution Width 21.2 Platelet Count 446 Mean Platelet Volume 8.3 Neutrophils (%) (Auto) 76.6 Lymphocytes (%) (Auto) 10.1 Monocytes (%) (Auto) 13.0 Eosinophils (%) (Auto) 0.0 Basophils (%) (Auto) 0.3 Neutrophils # (Auto) 6.2 Lymphocytes # (Auto) 0.8 Monocytes # (Auto) 1.0 Eosinophils # (Auto) 0.0 Basophils # (Auto) 0.0 CBC Comment DIFF FINAL Differential Comment Date/Time Source Procedure Growth Status 02/10/17 13:00 Blood Peripheral Aerobic Blood Culture Pending Received 02/10/17 13:00 Blood Peripheral Anaerobic Blood Culture Pending Received Result Diagram: 02/10/17 1255 02/10/17 0912 Personally reviewed images: Yes Imaging Last Impressions Chest X-Ray 02/10/17 0000 Signed Impressions: Service Date/Time: Friday, February 10, 2017 03:43 - CONCLUSION: There is new opacity at the right lung base that could represent atelectasis or airspace consolidation. Luke Arnold MD Assessment and Plan Problem List: (1) confusion/delirium (2) bladder cancer July 2016, high-grade muscle invasive urothelial cancer Assessment and Plan -Will obtain UA and culture to rule out UTI -Obtain bladder scan to evaluate proper bladder emptying -If >300cc on bladder scan, place chew catheter to drain bladder -Recommend Oncology consult for follow-up and evaluation -Will follow Bernard Dalton MD Feb 10, 2017 19:29
[2017-02-10] MEDS: REMOVE OLD NICOTINE PATCH T-DERMAL SCH (21:00)
[2017-02-10] MEDS: LATANOPROST 0.005% OPHT SOLN 2.5 ML BTL RIGHT EYE SCH (21:52)
[2017-02-11 06:07] VITALS: BP 176/88; PULSE 107; RESP 16; TEMP 98.3; O2SAT 94
--- NOTE | 2017-02-11 07:50 | HHI.PR ---
Subjective Remarks Patient in the chair says he finished breakfast. Now he is picking imaginary things from his gown says I am working on it" He is however pleasant. Has n sob at this time. No n/v/d/c. With LE edema. No fever or chills. He is not coughing. VS fairly stable. Urine OP into a lower side. Bladder scan pending , discussed with the nurse. No bladder scan available and will monitor urine OP for now Objective Vitals Vital Signs Date Time Temp Pulse Resp B/P (MAP) Pulse Ox O2 Delivery O2 Flow Rate FiO2 02/11/17 06:07 98.3 107 16 176/88 (117) 94 02/10/17 18:00 97.3 103 20 150/66 (94) 95 I/O 02/10/17 02/10/17 02/10/17 02/11/17 02/11/17 02/11/17 06:59 14:59 22:59 06:59 14:59 22:59 Intake Total 240 ml 1080 ml 120 ml Balance 240 ml 1080 ml 120 ml Intake Oral 240 ml 1080 ml 120 ml # Voids 1 1 Result Diagram: 02/10/17 1255 02/10/17 0912 Imaging Last Impressions Chest X-Ray 02/10/17 0000 Signed Impressions: Service Date/Time: Friday, February 10, 2017 03:43 - CONCLUSION: There is new opacity at the right lung base that could represent atelectasis or airspace consolidation. Luke Arnold MD Objective Remarks GENERAL: This is a pleasantly confused 76 yo male, well-nourished, well- developed patient, appears in nad. SKIN: No rashes, ecchymoses or lesions. Cool and dry. HEAD: Atraumatic. Normocephalic. No temporal or scalp tenderness. EYES: Pupils equal round and reactive. Extraocular motions intact. No scleral icterus. No injection or drainage. ENT: Nose without bleeding, purulent drainage or septal hematoma. Throat without erythema, tonsillar hypertrophy or exudate. Uvula midline. Airway patent. NECK: Trachea midline. No JVD or lymphadenopathy. Supple, nontender, no meningeal signs. CARDIOVASCULAR: Regular rate and rhythm without murmurs, gallops, or rubs. RESPIRATORY: Decreased breath sounds. No wheezes, rales, or rhonchi. GASTROINTESTINAL: Abdomen soft, non-tender, nondistended. No hepato-splenomegaly , or palpable masses. No guarding. MUSCULOSKELETAL: Extremities without clubbing, cyanosis.1+ RLE edema. Left lower extremity with AKA. No joint tenderness, effusion, or edema noted. No calf tenderness. Negative Homans sign on right. NEUROLOGICAL: Awake and alert. Pleasantly confused with visual hallucinations. Cranial nerves II through XII intact. Motor and sensory grossly within normal limits. Normal speech. A/P Assessment and Plan 76-year-old male with insulin-dependent diabetes mellitus, hypertension and bladder cancer presents after syncopal episode with hypertensive crisis. Visual hallucination. Risperdal. EEG was normal. Management per psych Syncopal episode 2. He was noted orthostatic on admission to the ED (SBP 180 down to 110 upon standing) likely from dehydration and also with hypertensive crisis on admission. Resolved. Monitor and adjust BP medications as needed. Continue Norvasc. Head CT without acute intracranial process Carotid ultrasound incomplete concerning for carotid stenosis obtain CTA, echocardiogram nl . EEG normal Hyperkalemia: Received kayexalate x1 time. He also received lasix x 1 time. Monitor K level. Monitor electrolytes. Possible PNA: check blood cx, sputum cultures. However patient was treated with rocephin while inpatient as suspicious for UTI on admission, urine cultures were negative and Rocephin was DCd. Started levaquin IV Monitor blood cx however might be neg. no signs of sepsis. Sputum cultures Insulin-dependent diabetes mellitus a1c is 7.7 , uncontrolled DM Continue home insulin SSI Bladder cancer Patient received his last chemotherapy ~2 weeks ago Is scheduled to be seen at [facility] for cystectomy Oncologist is Dr. Dumont Consult urology, will do bladder scan if resid vol > [address] chew . Check UA Alco consult Dr Dumont his oncology Dr Anemia H&H 8.9/26.1 H/H At baseline Follow CBC Transfuse when necessary Will check iron panel, b12 and folate , likely anemia is of chronic disease Start ferrous sulfate DVT ppx. Early ambulation. Thank you for this consultation will follow along Discussed Condition With patient, nurse Suzanna Koehler MD Feb 11, 2017 07:50
[2017-02-11] MEDS: INSULIN ASPART SUPPLEMENTAL SCALE SQ SCH ×4 (08:00→21:00)
[2017-02-11] MEDS: THIAMINE HCL 100 MG TAB PO SCH (08:12)
[2017-02-11] MEDS: risperiDONE 0.5 MG TAB PO SCH ×2 (08:13→21:13)
[2017-02-11] MEDS: NICOTINE 21 MG/24 HR PATCH T-DERMAL SCH (08:13)
[2017-02-11] MEDS: DORZOLAMIDE 2% OPTH SOLN 200 DROP/10 ML BTLO RIGHT EYE SCH ×2 (08:13→21:14)
[2017-02-11 08:14] LABS: AUTOMATED NEUTROPHIL # 5.9 TH/MM3 (1.8-7.7); BASOPHIL % 0.2 % (0.0-2.0); EOSINOPHIL % 0.4 % (0.0-4.0); HEMATOCRIT 24.9 % (39.0-51.0); LYMPH % 12.7 % (9.0-44.0); LYMPHOCYTE # 1.1 TH/MM3 (1.0-4.8); MEAN CELL VOLUME 91.8 FL (80.0-100.0); MEAN CORPUSCULAR HEMOGLOBIN 30.9 PG (27.0-34.0); MEAN CORPUSCULAR HGB CONC 33.7 % (32.0-36.0); MONO % 16.3 % (0.0-8.0); NEUT % 70.4 % (16.0-70.0); PLATELET COUNT 433 TH/MM3 (150-450); RED BLOOD COUNT 2.71 MIL/MM3 (4.50-5.90); RED CELL DISTRIBUTION WIDTH 21.2 % (11.6-17.2); WHITE BLOOD COUNT 8.4 TH/MM3 (4.0-11.0)
[2017-02-11 08:15] LABS: HEMO FLAGS AUTO DIFF
[2017-02-11 08:41] LABS: BICARBONATE 21.6 MEQ/L (21.0-32.0); MAGNESIUM 1.9 MG/DL (1.5-2.5); POTASSIUM 5.1 MEQ/L (3.5-5.1)
[2017-02-11 09:23] LABS: ACANTHOCYTES OCC (NORMAL); PLATELET ESTIMATE SMEAR NORMAL (NORMAL)
[2017-02-11 09:24] LABS: PLATELET MORPHOLOGY ENLARGED (NORMAL); SCAN/DIFF AUTO DIFF CONFIRMED
[2017-02-11] MEDS: FERROUS SULFATE 300 MG /5ML UDC PO SCH (12:23)
[2017-02-11] MEDS: LEVOFLOXACIN 750 MG PREMIX INJ 150 ML IV SCH (12:23)
--- NOTE | 2017-02-11 14:21 | MB ---
cc: GLADYS FLOWER M.D. DATE OF CONSULTATION: 02/11/2017 CONSULTING PHYSICIAN: Dr. Koehler. REASON FOR CONSULTATION: Oncology consulted for opinion, to evaluate patient with bladder cancer recently completed chemotherapy. HISTORY OF PRESENT ILLNESS The patient is a 76-year-old male recently diagnosed with muscle invasive bladder carcinoma. His CT scan showed a large mass in the bladder. He underwent TURBT September 01. Pathology showed T2 high-grade muscle invasive urothelial carcinoma. He was treated with neoadjuvant cisplatin and gemcitabine from October 2016 to January 2079. He receive four cycles of chemotherapy. He was admitted the hospital recently with syncopal episode during hospital stay he was noted and mental status change and has psychosis with a visual hallucination. He also noted to have hypertension. The wound. He was recently discharged from hospital, admitted today. <<2:20>> unit, he has been evaluated by neurology and oncology was consulted for further evaluation follow up. Patient is pleasant but he is not oriented. He is able to answer some questions but he is still hallucinating. He is seeing imaginary people and tries to lemon picker things from the bed that are not there. PAST MEDICAL HISTORY 1. Bladder cancer 2. history of prostate cancer treated radiation about 10 years ago. Hypertension 3. Glaucoma 4. Diabetes mellitus. PAST SURGICAL HISTORY Cholecystectomy left above-knee amputation secondary diabetic complications Back surgery Right carotid endarterectomy Recent TURBT FAMILY HISTORY Denies any cancer in the family. SOCIAL HISTORY Smokes at least 20 years, quit about 30 years ago. Denies alcohol use. ALLERGIES MELL INHIBITOR. CURRENT MEDICATIONS 1. Ferrous sulfate 2. Latanoprost 3. Levaquin 4. Nicotine patch. 5. Amlodipine 6. Trusopt 7. Risperdal. 8. Thiamine. REVIEW OF SYSTEMS CONSTITUTIONAL: Denies any fever or chills, night sweats. HEAD, EYES, EARS, NOSE, AND THROAT: Eyes: Denies any blurry vision, double vision. ENT: No mouth sore voice changes. CARDIOVASCULAR SYSTEM: Negative. RESPIRATORY: Negative. GASTROINTESTINAL: Denies any nausea, vomiting, abdominal pain. GENITOURINARY: No dysuria or hematuria. MUSCULOSKELETAL: Negative. HEMATOLOGIC: Negative DERMATOLOGIC: Negative. PSYCHIATRIC: As above. NEUROLOGIC: Negative. PHYSICAL EXAMINATION VITAL SIGNS: Temperature 98.3, blood pressure 176, 88, O2 saturation 94% room air. IN GENERAL: He is sitting in chair. He is not oriented but pleasant. HEAD, EYES, EARS, NOSE, AND THROAT: Atraumatic, normocephalic Pupils equal, round, reactive light. Extraocular muscles intact, no scleral icterus. Oropharynx with dry mucosa. NECK: No thyromegaly No palpable masses. LYMPHATICS: No palpable cervical, clavicular, axillary lymph node CARDIOVASCULAR SYSTEM: Regular S1-S2, No murmur. LUNGS: Clear to auscultation bilaterally. ABDOMEN: The abdomen is soft, nontender, There is no suprapubic tenderness. I could not palpate any masses. SKIN: no rash or petechiae. NEUROLOGIC: Exam nonfocal. EXTREMITIES: Extremity exam of left above-knee amputation noted. LABORATORY DATA Hemoglobin 8.4, WBCs and platelets are normal. Creatinine 1.33, ferritin 410. Percent of saturation 9.4, B12 1213. Folic acid 12. ASSESSMENT 1. Muscle invasive urothelial carcinoma, he presented in August with gross hematuria. Workup showed large bladder mass. He underwent transurethral resection of bladder tumor and pathology showed T2, muscle invasive high-grade urothelial carcinoma. Metastatic workup was unremarkable. He receive neoadjuvant cisplatin and gemcitabine which he just completed a few weeks ago. He tolerated it well. He has no hematuria or dysuria at this time. He just had a bladder scan which did not show significant postvoid residual volume. He was supposed to go to [facility] to have a second opinion consultation but he was admitted to the hospital. Urology is following and due to his current condition a radical cystectomy probably will need to be deferred. 2. Anemia likely due to recent chemotherapy. He has no evidence of active bleeding, iron study is more consistent with anemia of chronic disease. 3. Psychosis with hallucination initially thought to be metabolic encephalopathy. However, his condition has not improved, he is currently receiving care at the psychiatric unit. 4. Electrolyte abnormality which has improved. 5. Hypertension. RECOMMENDATIONS 1. Continue supportive care. 2. Monitor CBC 3. Urology is following the patient. Patient is going to need radical cystectomy but this will need to be deferred given his acute psychiatric issues. Thank you Dr. Koehler for asking us see this patient. MD AMARJIT Flores/sung /10:44 AM /12:52 PM KAMERON
--- NOTE | 2017-02-11 17:41 | PD.PSY.CON ---
Provisional Diagnosis Admission Date Feb 09, 2017 at 22:00 [place] I. Unspecified psychosis, rule out delirium History of Present Illness Service Psychiatry Consult Requested By Psychiatry Reason for Consult 2nd opinion Primary Care Physician Non-Staff HPI Pt is a 76YOWM [place] [facility] [place] for syncope, hypokalemia, hypocalcemia, anemia, UTI, and hypertensive crisis. He was transferred to med/ psychiatric unit under a BA secondary to psychosis.. Staff report that pt is nonsensical with rambling speech and is completely disoriented. He is restless and is having visual hallucinations. He refused blood glucose this afternoon and was aggressive toward RN, but later was calm and cooperative with other care. Upon approach he is paranoid. He demands MD's "credentials" and is suspicious about MD's hospital ID badge. He reports that he is hearing AH, " They are talking..lots of them." Past psychiatric history: Denies Substance use history: Remote tobacco use, alcohol abuse in the past but drinks less than one drink per day for the past 10 years. Denies use of any illicit drug use Past medical history: Bladder cancer, hypertension, IDDM Allergies: benazepril, captopril, enalaprilat, fosinopril, lisinopril, quinapril Social history: , retired, on social security benefits, born and raised in [place], lives alone, height medication is some college, [employer]. Past Family Social History Coded Allergies: *MDRO Multi-Drug Resistant Organism (Verified Allergy, Unknown, 02/06/17) MRSA benazepril (Unverified Adverse Reaction, Intermediate, Cough, 02/06/17) captopril (Unverified Adverse Reaction, Intermediate, Cough, 02/06/17) enalaprilat (Unverified Adverse Reaction, Intermediate, Cough, 02/06/17) fosinopril (Unverified Adverse Reaction, Intermediate, Cough, 02/06/17) lisinopril (Unverified Adverse Reaction, Intermediate, Cough, 02/06/17) quinapril (Unverified Adverse Reaction, Intermediate, Cough, 02/06/17) Active Scripts Risperidone (Risperdal) 0.5 Mg Tab, 0.5 MG PO Q12HR for anxiety/depression , # 60 TAB Prov:Suzanna Koehler MD 02/09/17 Thiamine HCl (Gnp Vitamin B-1) 100 Mg Tab, 100 MG PO DAILY for Nutritional Supplement, #30 TAB Prov:Suzanna Koehler MD 02/09/17 Reported Medications Amlodipine (Amlodipine) 10 Mg Tab, 10 MG PO DAILY for Blood Pressure Management , TAB 0 Refills 02/06/17 Multiple Vitamins W/ Minerals (Preservision Areds) 1 Tab, 2 TAB PO DAILY for Nutritional Supplement, TAB 0 Refills 10/13/16 Dorzolamide Opth Drops (Dorzolamide Opth Drops) 2% Soln, 1 DROP RIGHT EYE BID for Glaucoma, #1 BOTTLE 0 Refills 10/13/16 Latanoprost Opth Drops (Latanoprost Opth Drops) 0.005% Drops, 1 DROP RIGHT EYE HS for Glaucoma, #2.5 ML 0 Refills Refrigerate until opened. 10/13/16 Insulin Glargine Inj (Lantus Inj) 1,000 Unit/10 Ml Vial, 30 UNITS SQ HS for Blood Sugar Management, VIAL 0 Refills 10/13/16 Insulin Glargine Inj (Lantus Inj) 1,000 Unit/10 Ml Vial, 25 UNITS SQ DAILY for Blood Sugar Management, VIAL 0 Refills 10/13/16 Discontinued Reported Medications Temazepam (Temazepam) 15 Mg Cap, 15 MG PO HS Y for INSOMNIA, CAP 0 Refills 02/06/17 Current Medications Medications (Trade) Dose Ordered Sig/Myrna Route Start Time Stop Time Status Last Admin (Tylenol) 650 mg Q4H PRN PO 02/09/17 22:30 (Milk Of Magnesia Liq) 30 ml DAILY PRN PO 02/09/17 22:30 (Mag-Al Plus Susp Liq) 30 ml Q6H PRN PO 02/09/17 22:30 (Habitrol 21 Mg Patch.24 Hr) 1 patch DAILY T-DERMAL 02/10/17 09:00 Miscellaneous Information 1 HS T-DERMAL 02/10/17 21:00 (Duoneb Neb) 1 ampule Q2HR NEB PRN NEB 02/10/17 03:30 02/10/17 03:39 (Norvasc) 10 mg DAILY PO 02/10/17 09:00 02/11/17 08:12 (Trusopt 2% Opth Soln) 1 drop BID RIGHT EYE 02/10/17 09:00 02/11/17 08:13 (Xalatan 0.005% Opth Soln) 1 drop HS RIGHT EYE 02/10/17 21:00 02/10/17 21:52 (risperDAL) 0.5 mg Q12HR PO 02/10/17 09:00 02/11/17 08:13 (Vitamin B1) 100 mg DAILY PO 02/10/17 09:00 02/11/17 08:12 (D50w (Vial) Inj) 50 ml UNSCH PRN IV PUSH 02/10/17 07:30 (Glucagon Inj) 1 mg UNSCH PRN OTHER 02/10/17 07:30 (NovoLOG SUPPLEMENTAL SCALE) 1 ACHS SLIDING SCALE SQ 02/10/17 08:00 02/10/17 21:53 Levofloxacin/ Dextrose 150 ml @ 100 mls/hr Q24H IV 02/10/17 12:00 02/11/17 12:23 (Ferrous Sulfate Liq) 300 mg DAILY PO 02/11/17 09:00 02/11/17 12:23 Patient's Strengths (min. 2) Verbal and communicative Physical Exam Vital Signs Vital Signs Date Time Temp Pulse Resp B/P (MAP) Pulse Ox O2 Delivery O2 Flow Rate FiO2 02/11/17 06:07 98.3 107 16 176/88 (117) 94 I/O 02/11/17 02/11/17 02/12/17 08:00 16:00 00:00 Intake Total 120 ml 390 ml 120 ml Balance 120 ml 390 ml 120 ml Lab Results Test 02/11/17 07:29 White Blood Count 8.4 TH/MM3 Red Blood Count 2.71 MIL/MM3 Hemoglobin 8.4 GM/DL Hematocrit 24.9 % Mean Corpuscular Volume 91.8 FL Mean Corpuscular Hemoglobin 30.9 PG Mean Corpuscular Hemoglobin Concent 33.7 % Red Cell Distribution Width 21.2 % Platelet Count 433 TH/MM3 Mean Platelet Volume 8.0 FL Neutrophils (%) (Auto) 70.4 % Lymphocytes (%) (Auto) 12.7 % Monocytes (%) (Auto) 16.3 % Eosinophils (%) (Auto) 0.4 % Basophils (%) (Auto) 0.2 % Neutrophils # (Auto) 5.9 TH/MM3 Lymphocytes # (Auto) 1.1 TH/MM3 Monocytes # (Auto) 1.4 TH/MM3 Eosinophils # (Auto) 0.0 TH/MM3 Basophils # (Auto) 0.0 TH/MM3 CBC Comment AUTO DIFF Differential Comment AUTO DIFF CONFIRMED Platelet Estimate NORMAL Platelet Morphology Comment ENLARGED Acanthocytes OCC Blood Urea Nitrogen 30 MG/DL Creatinine 1.33 MG/DL Random Glucose 125 MG/DL Calcium Level 8.3 MG/DL Magnesium Level 1.9 MG/DL Sodium Level 141 MEQ/L Potassium Level 5.1 MEQ/L Chloride Level 111 MEQ/L Carbon Dioxide Level 21.6 MEQ/L Anion Gap 8 MEQ/L Estimat Glomerular Filtration Rate 52 ML/MIN Date/Time Source Procedure Growth Status 02/10/17 13:00 Blood Peripheral Aerobic Blood Culture - Preliminary NO GROWTH IN 1 DAY Resulted 02/10/17 13:00 Blood Peripheral Anaerobic Blood Culture - Preliminary NO GROWTH IN 1 DAY Resulted Mental Status Examination Appearance: Appropriate Consciousness: Alert, Vigilant Orientation: Person, Place Speech: Hesitant Language: Adequate Fund of Knowledge: Inadequate Attention and Concentration: Inadequate Memory: Impaired Mood: Irritable Affect: Irritable Thought Process & Associations: Disorganized Thought Content: Hallucinations Hallucination Type: Visual Delusion Type: None Suicidal Ideation: No Suicidal Plan: No Suicidal Intention: No Homicidal Ideation: No Homicidal Plan: No Homicidal Intention: No Insight: Poor Judgment: Poor Assessment & Plan Problem List: (1) Unspecified psychosis ICD Codes: F29 - Unspecified psychosis not due to a substance or known physiological condition Assessment & Plan I agree that pt meets involuntary hospitalization criteria due to psychosis and disorganization. 2nd opinion paperwork completed. Estimated LOS: Gaby Hillman MD Feb 11, 2017 17:41
[2017-02-11 18:00] VITALS: BP 149/68; PULSE 103; RESP 20; TEMP 98.3; O2SAT 94
[2017-02-11] MEDS: REMOVE OLD NICOTINE PATCH T-DERMAL SCH (21:00)
[2017-02-11] MEDS: LATANOPROST 0.005% OPHT SOLN 2.5 ML BTL RIGHT EYE SCH (21:14)
[2017-02-12 03:40] VITALS: BP 151/69; PULSE 100; RESP 18; O2SAT 99
[2017-02-12 04:30] VITALS: BP 138/72; PULSE 102; RESP 18; O2SAT 98
[2017-02-12 06:00] VITALS: BP 132/63; PULSE 107; RESP 19; TEMP 98.1; O2SAT 95
[2017-02-12] MEDS: INSULIN ASPART SUPPLEMENTAL SCALE SQ SCH ×4 (08:00→21:00)
--- NOTE | 2017-02-12 08:23 | HHI.PR ---
Subjective Remarks He is in the bed appears with sob and he is wheezing. Satting well. No fever ro chills no cough. Denies chest pain. Objective Vitals Vital Signs Date Time Temp Pulse Resp B/P (MAP) Pulse Ox O2 Delivery O2 Flow Rate FiO2 02/12/17 06:00 98.1 107 19 132/63 (86) 95 02/12/17 04:30 102 18 138/72 (94) 98 02/12/17 03:40 100 18 151/69 (96) 99 02/11/17 18:00 98.3 103 20 149/68 (95) 94 I/O 02/11/17 02/11/17 02/11/17 02/12/17 02/12/17 02/12/17 07:00 15:00 23:00 07:00 15:00 23:00 Intake Total 120 ml 390 ml 480 ml Balance 120 ml 390 ml 480 ml Intake Oral 120 ml 240 ml 480 ml IV Total 150 ml Bladder Scan Volume Amount 0 ml # Voids 1 1 0 # Bowel Movements 1 Result Diagram: 02/11/17 0729 02/11/17 0729 Imaging Last Impressions Chest X-Ray 02/10/17 0000 Signed Impressions: Service Date/Time: Friday, February 10, 2017 03:43 - CONCLUSION: There is new opacity at the right lung base that could represent atelectasis or airspace consolidation. Luke Arnold MD Objective Remarks GENERAL: This is a pleasantly confused 76 yo male, well-nourished, well- developed patient, appears in nad. SKIN: No rashes, ecchymoses or lesions. Cool and dry. HEAD: Atraumatic. Normocephalic. No temporal or scalp tenderness. EYES: Pupils equal round and reactive. Extraocular motions intact. No scleral icterus. No injection or drainage. ENT: Nose without bleeding, purulent drainage or septal hematoma. Throat without erythema, tonsillar hypertrophy or exudate. Uvula midline. Airway patent. NECK: Trachea midline. No JVD or lymphadenopathy. Supple, nontender, no meningeal signs. CARDIOVASCULAR: Regular rate and rhythm without murmurs, gallops, or rubs. RESPIRATORY: Decreased breath sounds. No wheezes, rales, or rhonchi. GASTROINTESTINAL: Abdomen soft, non-tender, nondistended. No hepato-splenomegaly , or palpable masses. No guarding. MUSCULOSKELETAL: Extremities without clubbing, cyanosis.1+ RLE edema. Left lower extremity with AKA. No joint tenderness, effusion, or edema noted. No calf tenderness. Negative Homans sign on right. NEUROLOGICAL: Awake and alert. Pleasantly confused with visual hallucinations. Cranial nerves II through XII intact. Motor and sensory grossly within normal limits. Normal speech. A/P Assessment and Plan 76-year-old male with insulin-dependent diabetes mellitus, hypertension and bladder cancer presents after syncopal episode with hypertensive crisis. Visual hallucination. Risperdal. EEG was normal. Management per psych Syncopal episode 2. He was noted orthostatic on admission to the ED (SBP 180 down to 110 upon standing) likely from dehydration and also with hypertensive crisis on admission. Resolved. Monitor and adjust BP medications as needed. Continue Norvasc. Head CT without acute intracranial process Carotid ultrasound incomplete concerning for carotid stenosis obtain CTA, echocardiogram nl . EEG normal Hyperkalemia: Received kayexalate x1 time. He also received lasix x 1 time. Monitor K level. Monitor electrolytes. Possible PNA: check blood cx, sputum cultures. However patient was treated with rocephin while inpatient as suspicious for UTI on admission, urine cultures were negative and Rocephin was DCd. Started levaquin IV Monitor blood cx however might be neg. no signs of sepsis. Sputum cultures Add duonebs prn as patient with wheezing. Monitor O2 sat. O2 supplement as need keep O2 sat > 92% Insulin-dependent diabetes mellitus a1c is 7.7 , uncontrolled DM Continue home insulin SSI Bladder cancer Patient received his last chemotherapy ~2 weeks ago Is scheduled to be seen at [facility] for cystectomy Oncologist is Dr. Dumont Consult urology, will do bladder scan if resid vol > [address] chew . Check UA Alco consult Dr Dumont his oncology Anemia H&H 8.9/26.1 H/H At baseline Follow CBC Transfuse when necessary Will check iron panel, b12 and folate , likely anemia is of chronic disease Start ferrous sulfate DVT ppx. Early ambulation. Thank you for this consultation will follow along Discussed Condition With patient, nurse Suzanna Koehler MD Feb 12, 2017 08:23
[2017-02-12] MEDS: RESP: ALBUTEROL 2.5 MG/IPRATROPIUM 0.5 MG NEB (PRN) NEB (08:24)
[2017-02-12] MEDS: risperiDONE 0.5 MG TAB PO SCH ×3 (09:00→20:48)
[2017-02-12] MEDS: THIAMINE HCL 100 MG TAB PO SCH ×2 (09:00→09:51)
[2017-02-12] MEDS: DORZOLAMIDE 2% OPTH SOLN 200 DROP/10 ML BTLO RIGHT EYE SCH ×3 (09:00→20:48)
[2017-02-12] MEDS: NICOTINE 21 MG/24 HR PATCH T-DERMAL SCH (09:00)
[2017-02-12] MEDS: FERROUS SULFATE 300 MG /5ML UDC PO SCH (09:50)
--- NOTE | 2017-02-12 10:47 | PD.ONC.PN ---
Subjective Subjective Remarks Afebrile Getting a bath by aides Still confused Denies remembering who Dr Dumont is Objective Data Date Time Temp Pulse Resp B/P (MAP) Pulse Ox O2 Delivery O2 Flow Rate FiO2 02/12/17 06:00 98.1 107 19 132/63 (86) 95 02/12/17 04:30 102 18 138/72 (94) 98 02/12/17 03:40 100 18 151/69 (96) 99 02/11/17 18:00 98.3 103 20 149/68 (95) 94 Result Diagram: 02/11/17 0729 02/11/17 0729 Culture Results Microbiology Date/Time Source Procedure Growth Status 02/10/17 13:00 Blood Peripheral Aerobic Blood Culture - Preliminary NO GROWTH IN 1 DAY Resulted 02/10/17 13:00 Blood Peripheral Anaerobic Blood Culture - Preliminary NO GROWTH IN 1 DAY Resulted 02/10/17 12:55 Blood Peripheral Aerobic Blood Culture - Preliminary NO GROWTH IN 1 DAY Resulted 02/10/17 12:55 Blood Peripheral Anaerobic Blood Culture - Preliminary NO GROWTH IN 1 DAY Resulted Administered Medications Medications (Trade) Dose Ordered Sig/Myrna Route PRN Reason Start Time Stop Time Status Last Admin Dose Admin Albuterol/ Ipratropium (Duoneb Neb) 1 ampule Q2HR NEB PRN NEB WHEEZING 02/10/17 03:30 02/12/17 08:24 Amlodipine Besylate (Norvasc) 10 mg DAILY PO 02/10/17 09:00 02/11/17 08:12 Dorzolamide HCl (Trusopt 2% Opth Soln) 1 drop BID RIGHT EYE 02/10/17 09:00 02/11/17 21:14 Latanoprost (Xalatan 0.005% Opth Soln) 1 drop HS RIGHT EYE 02/10/17 21:00 02/11/17 21:14 Risperidone (risperDAL) 0.5 mg Q12HR PO 02/10/17 09:00 02/11/17 21:13 Thiamine HCl (Vitamin B1) 100 mg DAILY PO 02/10/17 09:00 02/11/17 08:12 Insulin Aspart (NovoLOG SUPPLEMENTAL SCALE) 1 ACHS SLIDING SCALE SQ 02/10/17 08:00 02/10/17 21:53 Levofloxacin/ Dextrose 150 ml @ 100 mls/hr Q24H IV 02/10/17 12:00 02/11/17 12:23 Ferrous Sulfate (Ferrous Sulfate Liq) 300 mg DAILY PO 02/11/17 09:00 02/12/17 09:50 Objective Remarks GENERAL: Overweight elderly male resting in bed currently getting washed by aides. SKIN: Warm and dry. HEAD: Normocephalic. EYES: No injection or drainage. NECK: Supple, trachea midline. CARDIOVASCULAR: Regular rate and rhythm without murmurs. RESPIRATORY: Clear anteriorly. Breathing unlabored. GASTROINTESTINAL: Abdomen soft, non-tender, nondistended. EXTREMITIES: No cyanosis, or edema. MUSCULOSKELETAL: Generalized weakness NEUROLOGICAL: No obvious focal deficit. Awake, alert, and oriented x3. 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 Monitor for hematuria 2. Monitor CBC 3. Supportive care Attending Statement The exam, history, and the medical decision-making described in the above note were completed with the assistance of the mid-level provider. I reviewed and agree with the findings presented. I attest that I had a [id number] encounter with the patient on the same day, and personally performed and documented my assessment and findings in the medical record. Very confused. Not oriented and still try to picker box operator imaginary objects. Caballero cath was placed due to urinary retention. No hematuria. Etiology of psychosis unclear. He will need radical cystectomy for bladder cancer but has to be put on hold due to psychosis. Breonna García Feb 12, 2017 10:47 Anton Sanchez MD Feb 12, 2017 13:29
[2017-02-12 11:05] LABS: BACTERIA, URINE OCC /hpf; BLOOD, URINE MOD (NEG); COMMENT (UR) CULTURE INDICATED; CULTURE IF INDICATED CULTURE INDICATED; GLUCOSE,URINE 150 mg/dL (NEG); HYALINE CAST, URINE 1 /lpf (RARE); KETONE, URINE 10 mg/dL (NEG); MUCUS URINE FEW /lpf (OCC); NITRITE,URINE NEG (NEG); SQUAMOUS EPITHELIAL CELL URINE <1 /hpf (0-5); URINE COLOR YELLOW (YELLW/STRAW)
[2017-02-12] MEDS: LEVOFLOXACIN 750 MG PREMIX INJ 150 ML IV SCH (12:00)
[2017-02-12 17:21] VITALS: BP 178/80; PULSE 101; RESP 20; TEMP 98.6; O2SAT 98
--- NOTE | 2017-02-12 19:30 | HHI.PYPN ---
Subjective Remarks Pt seen and discussed with staff. He has been uncooperative and agitated. He spit in RN face. He remains paranoid with AH. Mental Status Examination Appearance: Appropriate Consciousness: Alert, Vigilant Orientation: Person, Place Speech: Hesitant Language: Adequate Fund of Knowledge: Inadequate Attention and Concentration: Inadequate Memory: Impaired Mood: Irritable Affect: Irritable Thought Process & Associations: Disorganized Thought Content: Hallucinations Hallucination Type: Auditory, Visual Delusion Type: None Suicidal Ideation: No Suicidal Plan: No Suicidal Intention: No Homicidal Ideation: No Homicidal Plan: No Homicidal Intention: No Insight: Poor Judgment: Poor Results Labs Test 02/12/17 10:35 Urine Color YELLOW Urine Turbidity CLEAR Urine pH 6.0 Urine Specific [place] 1.019 Urine Protein 300 mg/dL Urine Glucose (UA) 150 mg/dL Urine Ketones 10 mg/dL Urine Occult Blood MOD Urine Nitrite NEG Urine Bilirubin NEG Urine Urobilinogen LESS THAN 2.0 MG/DL Urine Leukocyte Esterase TRACE Urine RBC 6 /hpf Urine WBC 14 /hpf Urine Squamous Epithelial Cells <1 /hpf Urine Bacteria OCC /hpf Urine Hyaline Casts 1 /lpf Urine Mucus FEW /lpf Microscopic Urinalysis Comment CULTURE INDICATED Date/Time Source Procedure Growth Status 02/10/17 13:00 Blood Peripheral Aerobic Blood Culture - Preliminary NO GROWTH IN 2 DAYS Resulted 02/10/17 13:00 Blood Peripheral Anaerobic Blood Culture - Preliminary NO GROWTH IN 2 DAYS Resulted 02/12/17 10:35 Urine Clean Catch Urine Culture Pending Received Vitals/IOs Vital Signs Date Time Temp Pulse Resp B/P (MAP) Pulse Ox O2 Delivery O2 Flow Rate FiO2 02/12/17 17:21 98.6 101 20 178/80 (112) 98 Intake and Output 02/12/17 02/12/17 02/13/17 08:00 16:00 00:00 Intake Total 0 ml 120 ml Balance 0 ml 120 ml Assessment & Plan Problem List: (1) Unspecified psychosis ICD Codes: F29 - Unspecified psychosis not due to a substance or known physiological condition Assessment & Plan Continue current tx plan. Estimated LOS: days Justification for Cont. Inpt. impairments in reality testing, agitation Gaby Hillman MD Feb 12, 2017 19:30
[2017-02-12] MEDS: LATANOPROST 0.005% OPHT SOLN 2.5 ML BTL RIGHT EYE SCH (20:49)
[2017-02-12 21:00] VITALS: O2SAT 97
[2017-02-12] MEDS: REMOVE OLD NICOTINE PATCH T-DERMAL SCH (21:00)
[2017-02-13 06:31] VITALS: BP 179/76; PULSE 101; RESP 16; TEMP 98.7; O2SAT 96
[2017-02-13] MEDS: INSULIN ASPART SUPPLEMENTAL SCALE SQ SCH ×4 (08:00→21:00)
[2017-02-13] MEDS: THIAMINE HCL 100 MG TAB PO SCH (08:11)
[2017-02-13] MEDS: FERROUS SULFATE 300 MG /5ML UDC PO SCH (08:11)
[2017-02-13] MEDS: NICOTINE 21 MG/24 HR PATCH T-DERMAL SCH (08:11)
[2017-02-13] MEDS: risperiDONE 0.5 MG TAB PO SCH (08:11)
[2017-02-13] MEDS: DORZOLAMIDE 2% OPTH SOLN 200 DROP/10 ML BTLO RIGHT EYE SCH ×2 (09:00→21:48)
[2017-02-13 11:15] VITALS: BP 177/80; PULSE 98; RESP 20; TEMP 97.8; O2SAT 96
--- NOTE | 2017-02-13 11:28 | HHI.PR ---
Subjective Remarks In bed pleasantly confused , denies any cp, sob, n/v/d/c. No fever or chills. He is satting well on 2L NC Objective Vitals Vital Signs Date Time Temp Pulse Resp B/P (MAP) Pulse Ox O2 Delivery O2 Flow Rate FiO2 02/13/17 06:31 98.7 101 16 179/76 (110) 96 02/12/17 21:00 97 Nasal Cannula 2.00 02/12/17 17:21 98.6 101 20 178/80 (112) 98 I/O 02/12/17 02/12/17 02/12/17 02/13/17 02/13/17 02/13/17 07:00 15:00 23:00 07:00 15:00 23:00 Intake Total 0 ml 120 ml 0 ml 120 ml Output Total 1600 ml Balance 0 ml 120 ml -1600 ml 120 ml Intake Oral 0 ml 120 ml 0 ml 120 ml Output Urine Total 1600 ml # Voids 0 Result Diagram: 02/11/17 0729 02/11/17 0729 Imaging Last Impressions Chest X-Ray 02/10/17 0000 Signed Impressions: Service Date/Time: Friday, February 10, 2017 03:43 - CONCLUSION: There is new opacity at the right lung base that could represent atelectasis or airspace consolidation. Luke Arnold MD Objective Remarks GENERAL: This is a pleasantly confused 76 yo male, well-nourished, well- developed patient, appears in nad. SKIN: No rashes, ecchymoses or lesions. Cool and dry. HEAD: Atraumatic. Normocephalic. No temporal or scalp tenderness. EYES: Pupils equal round and reactive. Extraocular motions intact. No scleral icterus. No injection or drainage. ENT: Nose without bleeding, purulent drainage or septal hematoma. Throat without erythema, tonsillar hypertrophy or exudate. Uvula midline. Airway patent. NECK: Trachea midline. No JVD or lymphadenopathy. Supple, nontender, no meningeal signs. CARDIOVASCULAR: Regular rate and rhythm without murmurs, gallops, or rubs. RESPIRATORY: Decreased breath sounds. No wheezes, rales, or rhonchi. GASTROINTESTINAL: Abdomen soft, non-tender, nondistended. No hepato-splenomegaly , or palpable masses. No guarding. MUSCULOSKELETAL: Extremities without clubbing, cyanosis.1+ RLE edema. Left lower extremity with AKA. No joint tenderness, effusion, or edema noted. No calf tenderness. Negative Homans sign on right. NEUROLOGICAL: Awake and alert. Pleasantly confused with visual hallucinations. Cranial nerves II through XII intact. Motor and sensory grossly within normal limits. Normal speech. A/P Assessment and Plan 76-year-old male with insulin-dependent diabetes mellitus, hypertension and bladder cancer presents after syncopal episode with hypertensive crisis. Visual hallucination. Risperdal. EEG was normal. Management per psych Syncopal episode 2. He was noted orthostatic on admission to the ED (SBP 180 down to 110 upon standing) likely from dehydration and also with hypertensive crisis on admission. Resolved. Monitor and adjust BP medications as needed. Continue Norvasc. Head CT without acute intracranial process Carotid ultrasound incomplete concerning for carotid stenosis obtain CTA, echocardiogram nl . EEG normal Hyperkalemia: Received kayexalate x1 time. He also received lasix x 1 time. Monitor K level. Monitor electrolytes. Possible PNA: check blood cx, sputum cultures. However patient was treated with rocephin while inpatient as suspicious for UTI on admission, urine cultures were negative and Rocephin was DCd. Started levaquin IV Monitor blood cx however might be neg. no signs of sepsis. Sputum cultures Add duonebs prn as patient with wheezing. Monitor O2 sat. O2 supplement as need keep O2 sat > 92% Insulin-dependent diabetes mellitus a1c is 7.7 , uncontrolled DM Continue home insulin SSI Bladder cancer Patient received his last chemotherapy ~2 weeks ago Is scheduled to be seen at [facility] for cystectomy Oncologist is Dr. Dumont Consult urology, will do bladder scan if resid vol > [address] chew . Check UA Alco consult Dr Dumont his oncology Anemia H&H 8.9/26.1 H/H At baseline Follow CBC Transfuse when necessary Will check iron panel, b12 and folate , likely anemia is of chronic disease Start ferrous sulfate DVT ppx. Early ambulation. Thank you for this consultation will follow along Discussed Condition With patient, nurse Suzanna Koehler MD Feb 13, 2017 11:28
[2017-02-13 11:40] VITALS: BP 155/60
[2017-02-13] MEDS: LEVOFLOXACIN 750 MG PREMIX INJ 150 ML IV SCH (12:18)
--- NOTE | 2017-02-13 13:04 | HHI.PYPN ---
Subjective Remarks Patient seen for follow-up, chart reviewed. Discussion she staff reported the patient continues to be confused, alert and oriented only to person, and recently continues with gestures of actions with things that are not present. Patient found lying in hospital bed noted to be alert but minimally interactive to interview, with poor speech as he mumbles throughout interview. Patient noted to be confused alert and oriented to person, patient to be less verbal compared to prior visit with magnetic tape typewriter operator. The time to make incoherent statements. Junior Data Analyst discussed patient's current treatment plan with Dr. Artis as she reports is continuing following patient medically, receiving antibiotic treatment for possible pneumonia. Patient has had negative CT scan as a normal EEG recently. She reports that patient continues to endorse visual hallucinations during her visits with him. Review of Systems Except as stated in HPI: all other systems reviewed are Neg Mental Status Examination Appearance: Appropriate Consciousness: Alert, Vigilant Orientation: Person, Place Speech: Hesitant, Incoherent (at times) Language: Adequate Fund of Knowledge: Inadequate Attention and Concentration: Inadequate Memory: Impaired Mood: Other Affect: Blunt Thought Process & Associations: Disorganized Thought Content: Hallucinations Hallucination Type: Auditory, Visual Delusion Type: None Suicidal Ideation: No Suicidal Plan: No Suicidal Intention: No Homicidal Ideation: No Homicidal Plan: No Homicidal Intention: No Insight: Poor Judgment: Poor Results Labs Labs reviewed. Date/Time Source Procedure Growth Status 02/10/17 13:00 Blood Peripheral Aerobic Blood Culture - Preliminary NO GROWTH IN 3 DAYS Resulted 02/10/17 13:00 Blood Peripheral Anaerobic Blood Culture - Preliminary NO GROWTH IN 3 DAYS Resulted 02/12/17 10:35 Urine Clean Catch Urine Culture - Preliminary NO GROWTH IN 24 HOURS. 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 Patient currently being managed by medical team due to possible pneumonia. Patient has not been able to clinic effectively today with magnetic tape typewriter operator. It is still likely the patient is currently presenting with more delirious presentation than with primary psychiatric illness. We'll continue treatment psychotic symptoms at this time and increase risperidone to 0.75 mg by mouth twice a day with upward titration as needed. We'll order a neurology consult as well as palliative care consult. Continue recommendations as per primary primary medical team. Discharge planning in progress Justification for Cont. Inpt. At risk for further decompensation if at lower level of care Discharge Planning Patient to discharge back to his residence once medically and psychiatrically stable Jeffy Tolentino MD Feb 13, 2017 13:04
--- NOTE | 2017-02-13 14:18 | PD.ONC.PN ---
Subjective Subjective Remarks Afebrile overnight. Patient confused and non-verbal. Mumbles and gestures incoherently. Objective Data Date Time Temp Pulse Resp B/P (MAP) Pulse Ox O2 Delivery O2 Flow Rate FiO2 02/13/17 11:40 155/60 (91) 02/13/17 11:15 97.8 98 20 177/80 (112) 96 02/13/17 06:31 98.7 101 16 179/76 (110) 96 02/12/17 21:00 97 Nasal Cannula 2.00 02/12/17 17:21 98.6 101 20 178/80 (112) 98 02/13/17 02/13/17 02/13/17 06:59 14:59 22:59 Intake Total 0 ml 120 ml Output Total 1600 ml Balance -1600 ml 120 ml Result Diagram: 02/11/1772802/11/17 07 Culture Results Microbiology Date/Time Source Procedure Growth Status 02/12/17 10:35 Urine Clean Catch Urine Culture - Preliminary NO GROWTH IN 24 HOURS. Resulted Administered Medications Medications (Trade) Dose Ordered Sig/Myrna Route PRN Reason Start Time Stop Time Status Last Admin Dose Admin Albuterol/ Ipratropium (Duoneb Neb) 1 ampule Q2HR NEB PRN NEB WHEEZING 02/10/17 03:30 02/12/17 08:24 Amlodipine Besylate (Norvasc) 10 mg DAILY PO 02/10/17 09:00 02/13/17 08:11 Dorzolamide HCl (Trusopt 2% Opth Soln) 1 drop BID RIGHT EYE 02/10/17 09:00 02/13/17 09:00 Latanoprost (Xalatan 0.005% Opth Soln) 1 drop HS RIGHT EYE 02/10/17 21:00 02/12/17 20:49 Thiamine HCl (Vitamin B1) 100 mg DAILY PO 02/10/17 09:00 02/13/17 08:11 Insulin Aspart (NovoLOG SUPPLEMENTAL SCALE) 1 ACHS SLIDING SCALE SQ 02/10/17 08:00 02/12/17 12:00 Levofloxacin/ Dextrose 150 ml @ 100 mls/hr Q24H IV 02/10/17 12:00 02/13/17 12:18 Ferrous Sulfate (Ferrous Sulfate Liq) 300 mg DAILY PO 02/11/17 09:00 02/13/17 08:11 Objective Remarks GENERAL: chronically ill appearing male lying in bed SKIN: Warm and dry. HEAD: Normocephalic. EYES: No injection or drainage. NECK: Supple, trachea midline. CARDIOVASCULAR: +S1/S2 RESPIRATORY: anterior fraga clear. GASTROINTESTINAL: Abdomen soft, non-tender, nondistended. EXTREMITIES: No cyanosis MUSCULOSKELETAL: Adequate muscle tone. NEUROLOGICAL: awake. non-verbal. does track with eyes. does not follow commands. 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 Monitor for hematuria 2. Monitor CBC 3. Supportive care Attending Statement The exam, history, and the medical decision-making described in the above note were completed with the assistance of the mid-level provider. I reviewed and agree with the findings presented. I attest that I had a [id number] encounter with the patient on the same day, and personally performed and documented my assessment and findings in the medical record. Pt is severely confuse Recommend MRI brain Neurology has been consulted. no Radical cystectomy unless pt neurological/psych status resolve Suha Logan Feb 13, 2017 14:18 Denny Dumont MD Feb 13, 2017 18:00
[2017-02-13 18:00] VITALS: BP 188/80; PULSE 100; RESP 18; TEMP 98.3; O2SAT 94
--- NOTE | 2017-02-13 18:24 | HHI.HCPN ---
Reason for visit Palliative care reconsulted today, of note patient known to palliative care from consultation 02/08/17 during current acute hospitalization. . Patient seen to follow-up on symptoms of delirium, confusion. Subjective/Interval History Palliative care reconsulted today, of note patient known to palliative care from consultation 02/08/17 during current acute hospitalization. Reconsulted for patient continuing to have disorientation, and hallucinations. Patient currently in med-psych unit. * HX: Patient was originally admitted to [facility] on 02/06/17. At that time he had apparently been having "weak spells "and possible syncope as well as unsteady gait in the days prior to admission. During that admission electrolyte abnormalities were corrected. CT brain negative for acute process. Echocardiogram with EF 50-55 percent. Urine culture with no growth. He was afebrile with no leukocytosis. He also underwent a CTA, with findings of carotid stenosis left common, right internal and also left vertebral. He was having non-frightening visual hallucinations. Psychiatry evaluated and he was started on Risperdal 02/07, dose increased 02/08. He was still having some visual hallucinations and reporting "not thinking straight "at time of palliative consultation. Her mom reported that had never been a problem for him before. Risperdal was increased and psych added Haldol as needed. Patient was transitioned from medical unit to inpatient psych unit for further management. --Psychiatry evaluation by Dr. Tolentino on 02/10 notes patient with persistent psychotic symptoms despite medical stabilization, suspect maybe primary psychotic disorder or persistent psychotic symptoms related to recent delirium. Petition for involuntary hospital physician started due to concern patient unable to care for self due to current symptomatology. Request for healthcare surrogate and guardian advocate documents completed will request second opinion. --Oncology also reconsulted during psychiatric course--oncology notes that given current condition procedure such as radical cystectomy would need to be deferred. Anemia likely secondary to recent chemotherapy. Continue to follow. During ongoing psychiatric course he continues to have visual hallucinations. He has been receiving antibiotics for pneumonia. Psychiatry on 02/13 notes that patient presenting more with delirious presentation than with primary psychiatric illness. Recommends treating psychiatric symptoms and increasing risperidone to 0.75 by mouth twice a day with upward titration as needed. Neurology consult ordered, as well as palliative care (RE)consult. Oncology recommends MRI brain. --At time of my consultation neurology dictation is not available however additional studies have been ordered by Dr. Garrido of neurology. Pending: Sedimentation rate, HILARIO screen, TSH, free T4, methylmalonic acid, thiamine, ammonia, EEG, ABG. At this time would await these additional studies before making additional changes. MRI of brain may be helpful. Psychiatry has recently increased risperidone. If this is delirium, not clear what causing it. Patient has not recently received any opiates or benzodiazepines. Most recent cultures urine negative, blood 02/10 negative to date. Patient seen in room as lab is completing lab draw. During my exam urology M.D. also in, discussed case with him. Also discussed with primary nurse at bedside--she indicates patient expected to be transferred out of psychiatric unit back to regular medical unit. EEG has just been completed. Patient is awake at times, though eyes closed and lethargic at times. He intermittently follows simple commands for me at one point he sticks out his tongue and shows me his teeth with no apparent facial droop however when I ask him to grasp with his hands he is unable to do so. He does move his right foot to command though again this is indeterminate. Do note involuntary muscle spasm -like movements all over his body. At times his face expression appears distorted/grimacing. Nursing indicates that he has made picking and reaching motions as if he is having visual hallucinations though he is unable to describe for her. She further informs that he is not appeared frightened or tearful during these episodes. When I ask questions regarding orientation etc. he answered with unintelligible sounds. Following exam call to listed healthcare surrogate Donna Reyes, voicemail left with palliative contact information. Advance Directives Health Care Surrogate: Copy in medical record Advance Directive Specifics Date completed: 02/08/17 Health Care Surrogate(s): Designates friend Donna Chambers as HCS, with alternate Julia Zavaleta Objective Vital Signs Date Time Temp Pulse Resp B/P (MAP) Pulse Ox O2 Delivery O2 Flow Rate FiO2 02/13/17 11:40 155/60 (91) 02/13/17 11:15 97.8 98 20 177/80 (112) 96 02/13/17 06:31 98.7 101 16 179/76 (110) 96 02/12/17 21:00 97 Nasal Cannula 2.00 Intake & Output 02/13/17 02/13/17 07:00 19:00 Intake Total 0 ml 120 ml Output Total 1600 ml Balance -1600 ml 120 ml Intake Oral 0 ml 120 ml Output Urine Total 1600 ml Physical Exam CONSTITUTIONAL/GENERAL: This is an adequately nourished patient, mostly awake, restless/involuntary muscle movements EYES: Pupils equal and round and reactive. Extraocular motions intact. No scleral icterus. No injection or drainage. Fundi not examined. NECK: Trachea midline. Supple, nontender. No palpable thyroid enlargement or nodularity. CARDIOVASCULAR: Regular rate and rhythm without murmurs. No JVD. Peripheral pulses symmetric. RESPIRATORY/CHEST: Symmetric, unlabored respirations. On 2 L. Clear to auscultation. Breath sounds equal bilaterally. GASTROINTESTINAL: Abdomen soft, non-tender, nondistended. No hepato-splenomegaly , or palpable masses. No guarding. Bowel sounds present. MUSCULOSKELETAL: Extremities without clubbing, cyanosis, or edema. No joint tenderness or effusion noted. No calf tenderness. No mottling or clubbing. Left lower extremity BKA, scar well-healed. LYMPHATICS: No palpable cervical or supraclavicular adenopathy. NEUROLOGICAL: Awake and alert. Mumbles incomprehensible sounds. Unable to assess orientation. Intermittently follows simple commands though does not do so consistently. No apparent facial droop .+ Ongoing involuntary muscle movements, spasm-like all over his body. PSYCHIATRIC: No obvious anxiety/depression--limited assessment due to clinical condition. He is looking around the room at times does not appear anxious or frightened. Diagnostic Tests Laboratory Laboratory Tests Test 02/11/17 07:29 02/12/17 10:35 White Blood Count 8.4 TH/MM3 (4.0-11.0) Red Blood Count 2.71 MIL/MM3 (4.50-5.90) Hemoglobin 8.4 GM/DL (13.0-17.0) Hematocrit 24.9 % (39.0-51.0) Mean Corpuscular Volume 91.8 FL (80.0-100.0) Mean Corpuscular Hemoglobin 30.9 PG (27.0-34.0) Mean Corpuscular Hemoglobin Concent 33.7 % (32.0-36.0) Red Cell Distribution Width 21.2 % (11.6-17.2) Platelet Count 433 TH/MM3 (150-450) Mean Platelet Volume 8.0 FL (7.0-11.0) Neutrophils (%) (Auto) 70.4 % (16.0-70.0) Lymphocytes (%) (Auto) 12.7 % (9.0-44.0) Monocytes (%) (Auto) 16.3 % (0.0-8.0) Eosinophils (%) (Auto) 0.4 % (0.0-4.0) Basophils (%) (Auto) 0.2 % (0.0-2.0) Neutrophils # (Auto) 5.9 TH/MM3 (1.8-7.7) Lymphocytes # (Auto) 1.1 TH/MM3 (1.0-4.8) Monocytes # (Auto) 1.4 TH/MM3 (0-0.9) Eosinophils # (Auto) 0.0 TH/MM3 (0-0.4) Basophils # (Auto) 0.0 TH/MM3 (0-0.2) CBC Comment AUTO DIFF Differential Comment AUTO DIFF CONFIRMED Platelet Estimate NORMAL (NORMAL) Platelet Morphology Comment ENLARGED (NORMAL) Acanthocytes OCC (NORMAL) Blood Urea Nitrogen 30 MG/DL (7-18) Creatinine 1.33 MG/DL (0.60-1.30) Random Glucose 125 MG/DL (74-106) Calcium Level 8.3 MG/DL (8.5-10.1) Magnesium Level 1.9 MG/DL (1.5-2.5) Sodium Level 141 MEQ/L (136-145) Potassium Level 5.1 MEQ/L (3.5-5.1) Chloride Level 111 MEQ/L (98-107) Carbon Dioxide Level 21.6 MEQ/L (21.0-32.0) Anion Gap 8 MEQ/L (5-15) Estimat Glomerular Filtration Rate 52 ML/MIN (>89) Urine Color YELLOW (YELLW/STRAW) Urine Turbidity CLEAR (CLEAR) Urine pH 6.0 (5.0-8.5) Urine Specific [place] 1.019 (1.002-1.035) Urine Protein 300 mg/dL (NEG-TRACE) Urine Glucose (UA) 150 mg/dL (NEG) Urine Ketones 10 mg/dL (NEG) Urine Occult Blood MOD (NEG) Urine Nitrite NEG (NEG) Urine Bilirubin NEG (NEG) Urine Urobilinogen LESS THAN 2.0 MG/DL (LESS Urine Leukocyte Esterase TRACE (NEG) Urine RBC 6 /hpf (0-3) Urine WBC 14 /hpf (0-5) Urine Squamous Epithelial Cells <1 /hpf (0-5) Urine Bacteria OCC /hpf (NONE) Urine Hyaline Casts 1 /lpf (RARE) Urine Mucus FEW /lpf (OCC) Microscopic Urinalysis Comment CULTURE INDICATED Result Diagram: 02/11/17 0729 02/11/17 0729 Microbiology Microbiology Date/Time Source Procedure Growth Status 02/12/17 10:35 Urine Clean Catch Urine Culture - Preliminary NO GROWTH IN 24 HOURS. Resulted Imaging Last Impressions Chest X-Ray 02/10/17 0000 Signed Impressions: Service Date/Time: Friday, February 10, 2017 03:43 - CONCLUSION: There is new opacity at the right lung base that could represent atelectasis or airspace consolidation. Luke Arnold MD Assessment and Plan Disease Oriented Problem List: (1) confusion/hallucinations, new onset, ?delirium, without apparent infection (2) electrolyte (potassium and calcium) imbalances (3) history of prostate cancer, s/p radiation (4) S/P recent completion of cisplatin and Gemzar cycles (5) weakness (6) Hypertension (7) carotid vascular disease (8) remote history of CVA (9) confusion/delirium (10) Bladder cancer (11) peripheral arterial disease, severe (12) insulin-dependent diabetes (13) glaucoma (14) depression (15) Unspecified psychosis Symptom Scale: (1) Delirium 0-10 Scale: Unable to quantify (2) weakness 0-10 Scale: Unable to quantify Pertinent Non-Medical Issues ( per palliative initial H&P by Dr. Alex Pope) Psychosocial:Born and raised in [place], moved to [place] a few years ago. He lives alone.He has been 3 times, a few years ago from third . He has one child, a son Amadeo Valente living in [place]. 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 .Spiritual:The patient has a Christianity background, and he has attended a local mosque intermittently. He is not affiliated with any particular mosque or clergy at this time. He is open to audio video mechanic visits. Legal: Since admission patient had had episodes of confusion and intermittent hallucinations. He has had some awareness of his malignancy, plans for surgery and the gravity of his conditions. Per prior palliative care interactions concern patient may not have total capacity for making decisions though he may be able to identify an appropriate healthcare surrogate and participate in shared decision making. Patient has never completed a living will, or health care surrogate designation. During initial palliative consultation he indicated that he would appoint his close friend and retired nurse Donna Chambers as his HCS.Healthcare surrogate completed naming close friend/retired nurse Donna Chambers as HCS Ethical issues impacting care: Important Contacts Friend and HCS: Donna Chambers [phone] Son: Amadeo Valente [phone] [id number] Julia Zavaleta (alternate healthcare surrogate)[phone] . Prognosis The patient's overall prognosis is somewhat guarded in the long-term. He is in the midst of aggressive treatment for his invasive bladder cancer, and has had worsening weakness, not helped by his ongoing confusion and delirium. Confusion has not improved, despite ongoing psychiatric management in patient in the med psych unit. Etiology still not clear, patient with no history of psychiatric problems. Oncology felt likely secondary to metabolic encephalopathy. If his confusion and inability to participate in activities needed to improve/maintain strength, nutrition continues he will likely experience continued decline and debility, and it is not clear that he will get well enough to obtain additional treatment for his bladder cancer. Plan * Legal decision maker: Since admission patient had had episodes of confusion and intermittent hallucinations. He has had some awareness of his malignancy, plans for surgery and the gravity of his conditions. Per prior palliative care interactions concern patient may not have total capacity for making decisions though he may be able to identify an appropriate healthcare surrogate and participate in shared decision making. Patient has never completed a living will, or health care surrogate designation. During initial palliative consultation he indicated that he would appoint his close friend and retired nurse Donna Chambers as his HCS.Healthcare surrogate completed naming close friend /retired nurse Donna Chambers as HCS Healthcare surrogate completed naming close friend/retired nurse Donna Cahmbers as HCS * Goals: Patient has previously expressed aggressive goals "to get better "and continuing with planned follow-up at [facility] for probable surgery following his chemotherapy. Still no clear etiology to hallucinations, delirium. Will need ongoing conversation with designated healthcare surrogate as additional diagnostics available per neurology.Following exam call to listed healthcare surrogate liza Swanson left with palliative contact information * CODE STATUS: Full code by default. * SYMPTOMS: --Delirium is worsening.===At time of my consultation neurology dictation is not available however additional studies have been ordered by Dr. Garrido of neurology. Pending: Sedimentation rate, HILARIO screen, TSH, free T4, methylmalonic acid, thiamine, ammonia, EEG, ABG.At this time would await these additional studies before making additional changes. MRI of brain may be helpful. Psychiatry has recently increased risperidone. If this is delirium, not clear what causing it. Patient has not recently received any opiates or benzodiazepines. Most recent cultures urine 02/12 negative, blood 02/10 negative to date. --Weakness/debility-as patient continues to be confused and with inability to fully participate in wellness activities likely his weakness and decline will continue. Would benefit from maximized PT, OT when his neurological status allows him to participate. * Palliative care will continue to follow during hospital course as condition evolves, to assist patient/decision-maker with understanding of medical conditions, weighing benefits/burdens of treatment options, for clarification of goals of treatment. Additionally will assist with any symptoms of palliative concern Time Spent Total Floor Time (mins): 35 (Chart review, PE, discussion with nurse, discussion with urology, call to [facility]) Attestation To help prompt me to consider important information that might be impacting today's encounter and assessment, information from prior notes written by myself or my colleagues may have been "brought forward" into today's note. My signature on this note, however, is an attestation that I personally performed the exam, history, and/or decision-making noted today, and, unless otherwise indicated, the interactions with patient, family, and staff as well as the review of records all occurred today. I also attest that the listed assessment and stated plan reflect my best clinical judgment today based on the combination of historical information, prior notes, and today's exam/ interactions. When time spent is documented, it refers only to time spent today by the signer, or if indicated, combined time spent today by collaborating physician/nurse practitioner. Natalie Sanchez Feb 13, 2017 18:24
[2017-02-13 18:29] VITALS: BP 161/71
[2017-02-13 19:35] LABS: FREE T4 1.36 NG/DL (0.76-1.46)
--- NOTE | 2017-02-13 19:59 | HHI.PR ---
Subjective Patient symptoms today Chew catheter placed due to urinary retention BladderScan over 500 cc. No fevers, patient continues to show evidence of delirium. Objective Vital Signs Vital Signs Date Time Temp Pulse Resp B/P (MAP) Pulse Ox O2 Delivery O2 Flow Rate FiO2 02/13/17 18:29 161/71 (101) 02/13/17 18:00 98.3 100 18 188/80 (116) 94 02/13/17 11:40 155/60 (91) 02/13/17 11:15 97.8 98 20 177/80 (112) 96 02/13/17 06:31 98.7 101 16 179/76 (110) 96 02/12/17 21:00 97 Nasal Cannula 2.00 Result Diagram: 02/11/1772802/11/17 07 Objective Remarks Awake, not oriented NAD Chew in place, clear yellow urine Medications and IVs Current Medications Medications (Trade) Dose Ordered Sig/Myrna Route Start Time Stop Time Status Last Admin (Tylenol) 650 mg Q4H PRN PO 02/09/17 22:30 (Milk Of Magnesia Liq) 30 ml DAILY PRN PO 02/09/17 22:30 (Mag-Al Plus Susp Liq) 30 ml Q6H PRN PO 02/09/17 22:30 (Habitrol 21 Mg Patch.24 Hr) 1 patch DAILY T-DERMAL 02/10/17 09:00 Miscellaneous Information 1 HS T-DERMAL 02/10/17 21:00 (Duoneb Neb) 1 ampule Q2HR NEB PRN NEB 02/10/17 03:30 02/12/17 08:24 (Norvasc) 10 mg DAILY PO 02/10/17 09:00 02/13/17 08:11 (Trusopt 2% Opth Soln) 1 drop BID RIGHT EYE 02/10/17 09:00 02/13/17 09:00 (Xalatan 0.005% Opth Soln) 1 drop HS RIGHT EYE 02/10/17 21:00 02/12/17 20:49 (Vitamin B1) 100 mg DAILY PO 02/10/17 09:00 02/13/17 08:11 (D50w (Vial) Inj) 50 ml UNSCH PRN IV PUSH 02/10/17 07:30 (Glucagon Inj) 1 mg UNSCH PRN OTHER 02/10/17 07:30 (NovoLOG SUPPLEMENTAL SCALE) 1 ACHS SLIDING SCALE SQ 02/10/17 08:00 02/12/17 12:00 Levofloxacin/ Dextrose 150 ml @ 100 mls/hr Q24H IV 02/10/17 12:00 02/13/17 12:18 (Ferrous Sulfate Liq) 300 mg DAILY PO 02/11/17 09:00 02/13/17 08:11 (risperDAL) 0.75 mg Q12HR PO 02/13/17 21:00 Assessment and Plan Problem List: (1) confusion/delirium (2) bladder cancer July 2016, high-grade muscle invasive urothelial cancer Assessment and Plan -Maintain chew catheter -Follow-up in clinic for catheter removal once cleared by psychiatry Bernard Dalton MD Feb 13, 2017 19:59
--- NOTE | 2017-02-13 20:13 | HHI.DS ---
Psychiatry Discharge Summary Inpatient Psychiatric care?: Yes Advance Directive: No Reason Not Provided: doesnt have one Mental Health AdvanceDirective: No Health Care Proxy: Yes Admission Admission Date Feb 09, 2017 at 22:00 Admission Diagnosis: (1) Unspecified psychosis ICD Code: F29 - Unspecified psychosis not due to a substance or known physiological condition (2) Delirium ICD Code: R41.0 - Disorientation, unspecified Brief History Pt is a 76YOWM admitted to [facility] medical unit for syncope, hypokalemia, hypocalcemia, anemia, UTI, and hypertensive crisis. He was transferred to med/ psychiatric unit under a BA secondary to psychosis.. Staff report that pt is nonsensical with rambling speech and is completely disoriented. He is restless and is having visual hallucinations. He refused blood glucose this afternoon and was aggressive toward RN, but later was calm and cooperative with other care. Upon approach he is paranoid. He demands MD's "credentials" and is suspicious about MD's hospital ID badge. He reports that he is hearing AH, " They are talking..lots of them." Past psychiatric history: Denies Substance use history: Remote tobacco use, alcohol abuse in the past but drinks less than one drink per day for the past 10 years. 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 Tobacco Use In Past 30 Days: No Tobacco Past 30 Days Alcohol Use: Never Hospital Course Patient is a 76-year-old man, , retired also [employer], domiciled alone, no past psychiatric history, past medical history is negative for current bladder cancer, hypertension, insulin-dependent diabetes melitis, who was admitted to medicine prior to transfer to medical/psychiatry unit for syncope, hypokalemia, hypocalcemia, anemia, UTI, and hypertensive crisis which during his admission had experienced visual hallucinations which psychiatry was consulted for evaluation. Upon psychiatric evaluation on the medical floor patient continue with visual hallucinations noted to be disorganized, along with paranoid ideations internally preoccupied which patient was started on risperidone and titrated to 0.5 mg by mouth twice a day and transferred to inpatient psychiatry unit for further evaluation and management. Patient was started on risperidone 0.5mg PO BID and titrated up to 0.75mg PO BID for psychosis. Patient continued to be followed by medical team which he was noted with shortness of breath and CXR changes which he was started on treatment for possible pneumonia. Patient was also followed by urology consult team which patient was worked up for possible urinatry retention and possible UTI which were negative. Oncology also followed patient which recommended deferred radical cystectomy due to patient current AMS. Neurology and Palliative care were consulted pending recommendations. Patient was requested to be transferred back to the medical floor for further medical workup as per neurology service. Patient will be discharged on risperidone 0.75m PO BID for current hallucinations but can be tapered as patient improves. Patient with no prior psychiatric history and his current hallucinations being mainly visual likely related to primary medical cause which is currently being explored by multidisciplinary teams. Results Blood Pressure 161 / 71 Vital Signs Date Time Temp Pulse Resp B/P (MAP) Pulse Ox O2 Delivery O2 Flow Rate FiO2 02/13/17 18:29 161/71 (101) 02/13/17 18:00 98.3 100 18 94 02/12/17 21:00 Nasal Cannula 2.00 Laboratory Tests Test 02/11/17 07:29 02/12/17 10:35 02/13/17 18:20 02/13/17 18:40 Red Blood Count 2.71 MIL/MM3 (4.50-5.90) Hemoglobin 8.4 GM/DL (13.0-17.0) Hematocrit 24.9 % (39.0-51.0) Red Cell Distribution Width 21.2 % (11.6-17.2) Neutrophils (%) (Auto) 70.4 % (16.0-70.0) Monocytes (%) (Auto) 16.3 % (0.0-8.0) Monocytes # (Auto) 1.4 TH/MM3 (0-0.9) Platelet Morphology Comment ENLARGED (NORMAL) Blood Urea Nitrogen 30 MG/DL (7-18) Creatinine 1.33 MG/DL (0.60-1.30) Random Glucose 125 MG/DL (74-106) Calcium Level 8.3 MG/DL (8.5-10.1) Chloride Level 111 MEQ/L (98-107) Estimat Glomerular Filtration Rate 52 ML/MIN (>89) Urine Protein 300 mg/dL (NEG-TRACE) Urine Glucose (UA) 150 mg/dL (NEG) Urine Ketones 10 mg/dL (NEG) Urine Occult Blood MOD (NEG) Urine Leukocyte Esterase TRACE (NEG) Urine RBC 6 /hpf (0-3) Urine WBC 14 /hpf (0-5) Urine Bacteria OCC /hpf (NONE) Urine Mucus FEW /lpf (OCC) Test 02/13/17 19:40 Laboratory Results Test 02/10/17 09:12 Cholesterol Level 230 MG/DL (120-200) HDL Cholesterol 66.3 MG/DL (40.0-60.0) Hemoglobin A1c 7.7 % (4.3-6.0) LDL Cholesterol 140 MG/DL (0-99) Triglycerides Level 117 MG/DL (42-150) Summary of Procedures None Imaging Last Impressions Chest X-Ray 02/10/17 0000 Signed Impressions: Service Date/Time: Friday, February 10, 2017 03:43 - CONCLUSION: There is new opacity at the right lung base that could represent atelectasis or airspace consolidation. Luke Arnold MD Pending results at discharge: No Medications # of Antipsychotic meds at D/C: 1 Approp Antipsych med options 1 - Minimum of three failed multiple trials of monotherapy. 2 - Documented plan to taper to monotherapy due to previous use of multiple meds OR cross-taper in progress at D/C. 3 - Documentation of augmentation of Clozapine. 4 - Justification other than those listed in allowable values 1-3, document here : Discharge Discharge Date: Feb 13, 2017 Discharge Diagnosis: (1) Unspecified psychosis ICD Code: F29 - Unspecified psychosis not due to a substance or known physiological condition (2) Delirium ICD Code: R41.0 - Disorientation, unspecified Pt Condition on Discharge: Guarded Discharge Disposition: Disch to Another Hospital Discharge Instructions Diet Instructions: Diabetic Diet Activities you can perform: Weight Bearing as [place] Discharge Time > 30 minutes Mental Status Examination Appearance: Disheveled Consciousness: Lethargic Orientation: Person, Place Speech: Hesitant, Incoherent (at times) Language: Adequate Fund of Knowledge: Inadequate Attention and Concentration: Inadequate Memory: Impaired Mood: Other Affect: Blunt Thought Process & Associations: Disorganized Thought Content: Hallucinations Hallucination Type: Visual Delusion Type: None Suicidal Ideation: No Suicidal Plan: No Suicidal Intention: No Homicidal Ideation: No Homicidal Plan: No Homicidal Intention: No Insight: Poor Judgment: Poor Discharge/Advance Care Plan Health Problems: (1) Unspecified psychosis Goals to promote your health * To prevent worsening of your condition and complications * To maintain your health at the optimal level Directions to meet your goals Take your medications as prescribed Follow your dietary instruction Follow activity as directed Keep your appointments as scheduled Take your immunizations and boosters as scheduled If your symptoms worsen call your PCP, if no PCP go to Urgent Care Center or Emergency Room For 03/10 questions related to your inpatient stay or results of tests pending at discharge, please contact Dr. Jeffy Tolentino at Smoking is Dangerous to Your Health. Avoid second hand smoking Jeffy Tolentino MD Feb 13, 2017 20:13
[2017-02-13 20:22] LABS: BLOOD GAS BASE EXCESS -1.7 mmol/L (-2-2); BLOOD GAS CARBOXYHEMOGLOBIN 1.6 % (0-4); BLOOD GAS HCO3 22 mmol/L (22-26); BLOOD GAS METHEMOGLOBIN 1.3 % (0-2); BLOOD GAS O2 HGB SATURATION 95 % (90-100); BLOOD GAS OXYGEN CONTENT 11.4 Vol % (12.0-20.0); BLOOD GAS PCO2 31 mmHg (38-42); BLOOD GAS PO2 99 mmHg (61-120); BLOOD GAS TOTAL HGB 8.4 G/DL (12.0-16.0); CRITICAL VALUE NO; DRAW SITE RT RADIAL; LITER FLOW 2 L/M; NUMBER OF ARTERIAL PUNCTURES 1; OXYGEN DEVICE NASAL CANNULA; STAT YES; TEMP CORR TO 98.6; ULNAR PULSE PRESENT
[2017-02-13] MEDS: REMOVE OLD NICOTINE PATCH T-DERMAL SCH (21:00)
[2017-02-13] MEDS ORDERED: risperiDONE 0.25 MG TAB PO SCH (21:00)
[2017-02-13] MEDS: LATANOPROST 0.005% OPHT SOLN 2.5 ML BTL RIGHT EYE SCH (21:48)
--- NOTE | 2017-02-13 22:37 | MB ---
cc: LOREE RAGSDALE DATE OF CONSULTATION 02/13/2017 HISTORY OF THE PRESENT ILLNESS A 76-year-old man who was initially admitted through the ER on February 06 after syncopal episode. He was sitting out in the sun and passed out. He had an elevated blood pressure 200/100. He has bladder cancer, chemotherapy. Supposed to go to [facility] for bladder removal in the next few weeks. 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 He has had a low platelet count, low hemoglobin level. Sugar has been high. Somewhat unsteady in his gait. Right ankle pain. Below knee amp on the left from vascular problems from his diabetes. He was reportedly awake and alert and normal with neurological examination in the ER when he was first admitted. His potassium was 2.6. He was alert and oriented times three initially. ER notes have the best meds list usually. ALLERGIES HE IS ALLERGIC TO BENAZEPRIL, CAPTOPRIL, ENALAPRIL, FOSINOPRIL, LISINOPRIL, QUINAPRIL. MEDICATIONS At home: 1. Temazepam 15 q.h.s. as needed. 2. Amlodipine. 3. Multivitamins. 4. Eye drops. 5. Insulin. REVIEW OF SYSTEMS I am unable to obtain from the patient. He is not very cooperative right now or unable to cooperate. 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 CURRENT MEDICATIONS He is on: 1. Levaquin which can increase seizure risk . 2. Norvasc. 3. B1 orally. 4. Tylenol. 5. Amlodipine. 6. Risperdal 0.75 q.12h. PHYSICAL EXAMINATION VITAL SIGNS: On exam afebrile, 98, 21, 77/80. NECK: There were no carotid bruits. CARDIOVASCULAR: Heart was regular rhythm. I did not detect a murmur. NEUROLOGIC: He seems at times a little jerky and maybe having some small myoclonic jerks in his arms. It is hard to say. Sometimes he will answer my questions, other times not. He knows the month and the year. He sticks his tongue out for me. Moves all of his extremities. The right toe was downgoing. The left below-knee amp. He has some increased tone in bilateral upper extremities. He tends to have his head turned to his right. At times he seems like he is unable to respond, other times does respond okay. He is in a little bit of a bad mood. IMAGING He had a chest x-ray. An opacity in the right lung. He had a neck CTA, had some disease in the lower cervical common carotid on the left. Moderate disease high cervical and proximal petrous portion on the right and proximal vertebral artery on the left. He had a carotid ultrasound, he refused exam. He had a CT scan of his brain shows some chronic changes, old right lacunar infarct. He had an EEG which just showed some slowing. Review of CT he does have an old right infarct by the head of the caudate . Those are atrophied in [place]'s chorea. Looking at the CTA he appears to have significant disease of the left internal carotid artery, a lot of calcification and also the right internal carotid artery in the petrous portion and also some significant stenosis I would say at least 60% and some calcification there. He may have had an old left carotid endarterectomy by the CTA. This is a jugular vein here. LABORATORY DATA Other labs, CBC shows hematocrit of 49, normal white count and platelet count. Basic metabolic profile his creatinine is 1.33, otherwise essentially normal. GFR is 52. Glucose 125. His iron level is low at 22. Liver function has been normal recently. Troponin negative. B12 level normal. Urine drug screen normal on admission. Urinalysis a lot of glucose, 14 white cells. IMPRESSION Encephalopathy. I am not quite sure why. Also some syncope or possible syncope. As far as I can tell he has not seen cardiology and the could be considered with the syncope. I would check an EEG on him, an MRI of brain, an ABG and ammonia level. Some additional blood work, his thyroid. He appears to have at least encephalopathy. It is possible he could be having subclinical seizures. I would recommend transferring him over to a regular med floor and tele. It is hard to me tell how much could be psychiatric with his behaviors versus significant encephalopathy. I would recommend having him on at least an aspirin with the carotid disease. We should check his lipid profile. We may consider holding his Risperdal. ADDENDUM He does have the bladder cancer. Carcinomatous meningitis could be consider, although mets to the brain in think less likely. In addition, I would hold off on the aspirin now until we decide whether we are going to do an LP or not, but at some point I think he needs to be put on aspirin. We could also consider holding the Risperdal. MD JANETH Jj/TORRES /4:53 PM /8:10 AM
[2017-02-13 23:36] VITALS: BP 191/80; PULSE 96; RESP 15; TEMP 97.9; O2SAT 99
--- NOTE | 2017-02-14 05:28 | MG ---
cc: LOREE RAGSDALE Lab No: [id number] Date: 02/13/2017 Age: 76 Sex: M Race: INDICATIONS FOR PROCEDURE Change in mental status. Bladder cancer. MEDICATIONS Risperdal. # Levaquin. FINDINGS A 7-8 Hz diffuse symmetric and synchronous rhythm is noted. No epileptiform or seizure activity is noted. Many blinks are noted with photic stimulation but no posterior rhythm or posterior driving is noted. No hemisphere asymmetry is seen. No epileptiform or seizure activity is noted. IMPRESSION Mild diffuse theta slowing, otherwise a normal EEG. MD JANETH Jj/SSB /7:32 PM /5:21 AM MTDD
[2017-02-14 09:02] LABS: AUTOMATED NEUTROPHIL # 3.3 TH/MM3 (1.8-7.7); BASOPHIL % 0.6 % (0.0-2.0); EOSINOPHIL # 0.2 TH/MM3 (0-0.4); EOSINOPHIL % 3.4 % (0.0-4.0); HEMATOCRIT 26.6 % (39.0-51.0); LYMPH % 19.2 % (9.0-44.0); LYMPHOCYTE # 1.2 TH/MM3 (1.0-4.8); MEAN CELL VOLUME 91.3 FL (80.0-100.0); MEAN CORPUSCULAR HEMOGLOBIN 30.3 PG (27.0-34.0); MEAN CORPUSCULAR HGB CONC 33.2 % (32.0-36.0); NEUT % 50.8 % (16.0-70.0); PLATELET COUNT 344 TH/MM3 (150-450); RED BLOOD COUNT 2.92 MIL/MM3 (4.50-5.90); RED CELL DISTRIBUTION WIDTH 19.8 % (11.6-17.2); WHITE BLOOD COUNT 6.5 TH/MM3 (4.0-11.0)
[2017-02-14 09:12] LABS: HEMO FLAGS AUTO DIFF
[2017-02-14 09:36] LABS: BICARBONATE 23.1 MEQ/L (21.0-32.0); POTASSIUM 3.8 MEQ/L (3.5-5.1)
[2017-02-14 09:47] LABS: POLYCHROMASIA 2.4 % (0.0-1.9); SCAN/DIFF AUTO DIFF CONFIRMED
--- NOTE | 2017-02-14 09:48 | RADRPT ---
EXAM DATE/TIME: 02/14/2017 08:22 [facility] COMPARISON: CT BRAIN W/O CONTRAST, February 06, 2017, 17:57. INDICATIONS : Altered mental status. RADIATION DOSE: 58.15 CTDIvol (mGy) MEDICAL HISTORY : Cerebrovascular disease. Cardiovascular disease Diabetes mellitus type 2.Prostate and bladder cancer. SURGICAL HISTORY : None. ENCOUNTER: Initial ACUITY: 1 day PAIN SCALE: 0/10 LOCATION: cranial TECHNIQUE: Multiple contiguous axial images were obtained of the head. Using automated exposure control and adj ustment of the mA and/or kV according to patient size, radiation dose was kept as low as reasonably a chievable to obtain optimal diagnostic quality images. DICOM format image data is available electro nically for review and comparison. FINDINGS: CEREBRUM: Focal hypodensity indicative of an old lacunar infarcts is again identified adjacent to the head of t he right caudate nucleus. The appearance of the brain is otherwise stable. There is a subacute infarc t, hemorrhage, mass or edema. Mild generalized line loss is noted. POSTERIOR FOSSA: The cerebellum and brainstem are intact. The 4th ventricle is midline. The cerebellopontine angle i s unremarkable. EXTRACRANIAL: The visualized portion of the orbits is intact. SKULL: The calvaria is intact. No evidence of skull fracture. CONCLUSION: 1. Stable exam without evidence of acute infarct, hemorrhage, mass or edema. 2. Stable hypodensity in the right deep frontal white matter adjacent to the head of caudate nucleus consistent with an area of old infarction. Fabian Dean MD on February 14, 2017 at 9:42 Board Certified Radiologist. This report was verified electronically.
[2017-02-15 15:45] LABS: ANA SCREEN NEG (NEG)
== END 2017-02-14 | disposition short-term general hospital (02) | DRG 885 ==
LOC: H4EA 22:00
PROVIDERS: ADMIT Student in an Organized Health Care Education/Training Program; ATTEND Student in an Organized Health Care Education/Training Program
DX: F29 Unspecified psychosis not due to a substance or known physiological condition (principal); G93.40 Encephalopathy, unspecified; J18.9 Pneumonia, unspecified organism; E11.51 Type 2 diabetes mellitus with diabetic peripheral angiopathy without gangrene; E11.65 Type 2 diabetes mellitus with hyperglycemia; E87.5 Hyperkalemia; D64.81 Anemia due to antineoplastic chemotherapy; I10 Essential (primary) hypertension; H40.9 Unspecified glaucoma; F32.9 Major depressive disorder, single episode, unspecified; T45.1X5A Adverse effect of antineoplastic and immunosuppressive drugs, initial encounter; I65.23 Occlusion and stenosis of bilateral carotid arteries; R06.2 Wheezing; C67.9 Malignant neoplasm of bladder, unspecified; Z92.3 Personal history of irradiation; Z85.46 Personal history of malignant neoplasm of prostate; Z89.612 Acquired absence of left leg above knee; Z87.891 Personal history of nicotine dependence; Z79.4 Long term (current) use of insulin; Z86.73 Personal history of transient ischemic attack (TIA), and cerebral infarction without residual deficits
CPT/HCPCS: 36600; 70450; 71010; 80048; 80061; 81001; 82140; 82607; 82728; 82746; 82805; 82948; 83036; 83540; 83550; 83735; 83880; 83921; 84425; 84439; 84443; 85025; 85652; 86038; 86592; 87040; 87086; 93005; 94150; 94640; 94664; 95819; J1815; J1940; J1956

== ENCOUNTER 2017-02-14 00:05 | Inpatient (IN) | payer OTHER, MEDICARE ==
[2017-02-14] VITALS (8 sets, daily range): BP systolic 123–189; BP diastolic 60–91; PULSE 84–100; RESP 16–18; TEMP 96.1–97.3; O2SAT 94–99
[~2017-02-14 00:05] MED LIST changes: -TEMA15CA PO
[2017-02-14] MEDS ORDERED: SODIUM CHLORIDE 0.9% FLUSH 10 ML FLUSH IV FLUSH PRN (01:15)
[2017-02-14] MEDS ORDERED: NALOXONE HCL 0.4 MG/ML AMP IV PUSH PRN (01:15)
--- NOTE | 2017-02-14 07:42 | HHI.PR ---
Subjective Remarks slept all noc Objective Vital Signs Date Time Temp Pulse Resp B/P (MAP) Pulse Ox O2 Delivery O2 Flow Rate FiO2 02/14/17 05:47 162/72 (102) 02/14/17 04:08 87 02/14/17 04:00 96.1 94 18 95 02/14/17 00:00 96.7 100 18 188/91 (123) 96 178/82 (114) I/O 02/13/17 02/13/17 02/13/17 02/14/17 02/14/17 02/14/17 07:00 15:00 23:00 07:00 15:00 23:00 Intake Total 240 ml Balance 240 ml Intake Oral 240 ml Objective Remarks hard to awaken says no only or stop restless sleep and movement of arms as if some rem sleep d/o moves bue well some inc tone Assessment and Plan Assessment and Plan imp encephalopathy abg and nh3 ok chol inc eeg neg off risperdal bladder ca ? septic possible? esr 66 may do LP will see if awakens this am Gilberto Garrido MD Feb 14, 2017 07:42
[2017-02-14] MEDS ORDERED: GADODIAMIDE PF 287 MG/ML 20 ML VIAL (for RAD MRI) IV PUSH ONE (09:24)
--- NOTE | 2017-02-14 09:41 | RADRPT ---
EXAM DATE/TIME: 02/14/2017 08:51 [facility] COMPARISON: No previous studies available for comparison. INDICATIONS : Altered mental status. Encephalitis. CONTRAST: 16 cc Omniscan (gadodiamide) IV MEDICAL HISTORY : Carcinoma, bladder. Hyperthyroidism. Carcinoma, prostate. SURGICAL HISTORY : Carotid endarterectomy. Cholecystectomy. Left leg amputation. ENCOUNTER: Initial ACUITY: 3 day PAIN SCORE: Nonresponsive. LOCATION: head TECHNIQUE: Multiplanar, multisequence MRI of the brain was performed both prior to and following the administrat ion of paramagnetic contrast. FINDINGS: CEREBRUM: The ventricles are normal for age. No evidence of midline shift, mass lesion, hemorrhage or acute in farction. No extraaxial fluid collections are seen. The pituitary gland and suprasellar cistern are normal in configuration. WHITE MATTER: Moderate periventricular white matter changes are noted including 2 infarcts basalganglia worse on th e right.. POSTERIOR FOSSA: The cerebellum and brainstem are intact. The 4th ventricle is midline. The cerebellopontine angle is unremarkable. The cerebellar tonsils are normal in position. DIFFUSION IMAGING: No focal areas of restricted diffusion are seen. No evidence of acute infarction. EXTRACRANIAL: The visualized portions of the orbits and paranasal sinuses are unremarkable. POST-CONTRAST: No abnormal areas of parenchymal or dural enhancement. No evidence of blood-brain barrier breakdown. CONCLUSION: Periventricular white matter changes and lacunar infarcts, negative for inflammatory process. Correl ation lumbar puncture with the benefit. Some inflammatory processes can be obscured by MRI.. Bennett Ibarra MD FACR on February 14, 2017 at 9:36 Board Certified Radiologist. This report was verified electronically.
--- NOTE | 2017-02-14 10:36 | HHI.HP ---
[facility] Service [facility] Primary Care Physician Pao Castaneda MD Admission Diagnosis Diagnoses: Chief Complaint: Altered mental status Travel History International Travel<30 Days: No Contact w/Intl Traveler <30 Da: No History of Present Illness 76-year-old male with insulin-dependent diabetes mellitus, hypertension and bladder cancer who presented with altered mental status thought to be psychiatric in nature so was initially admitted to the med psych unit. Patient mental status did not improve and psychiatrist did not think that this was psychiatric in nature and thought this was more metabolic so he was transferred to the medical floor. During my interview with the patient he had no complaints. He was able to come his name, that he was in the hospital, and location. He could not tell me the city. He was also able to tell me who the president and some current events. Patient had no complaints and stated that he has no clue what is wrong with him. He stated that he does feel weak. All other reviewed of systems reviewed and negative. 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 benazepril (Unverified Adverse Reaction, Intermediate, Cough, 02/06/17) captopril (Unverified Adverse Reaction, Intermediate, Cough, 02/06/17) enalaprilat (Unverified Adverse Reaction, Intermediate, Cough, 02/06/17) fosinopril (Unverified Adverse Reaction, Intermediate, Cough, 02/06/17) lisinopril (Unverified Adverse Reaction, Intermediate, Cough, 02/06/17) quinapril (Unverified Adverse Reaction, Intermediate, Cough, 02/06/17) Active Ordered Medications Current Medications Sodium Chloride (NS Flush) 2 ml UNSCH PRN IV FLUSH FLUSH AFTER USING IV ACCESS ; Start 02/14/17 at 01:15 Sodium Chloride (NS Flush) 2 ml BID IV FLUSH Last administered on 02/14/17 10: 48; Start 02/14/17 at 09:00 Naloxone HCl (Narcan Inj) 0.4 mg UNSCH PRN IV PUSH SEE LABEL COMMENTS; Start 02/14/17 at 01:15 Ceftriaxone Sodium 1000 mg/ Sodium Chloride 100 ml @ 200 mls/hr Q12H IV Last administered on 02/14/17 10:48; Start 02/14/17 at 08:00 Sodium Chloride 1,000 ml @ 75 mls/hr [id number] IV Last administered on 10:50; Start 02/14/17 at 08:00 Gadodiamide (Omniscan Pf Inj) 16 ml STK-MED ONCE IV PUSH Last administered on 02/14/17 09:24; Start 02/14/17 at 09:24; Stop 02/14/17 at 09:25; Status DC Amlodipine Besylate (Norvasc) 10 mg DAILY PO ; Start 02/15/17 at 09:00; Status UNV Dorzolamide HCl (Trusopt 2% Opth Soln) 1 drop BID RIGHT EYE ; Start 02/14/17 at 21:00; Status UNV Latanoprost (Xalatan 0.005% Opth Soln) 1 drop HS RIGHT EYE ; Start 02/14/17 at 21:00; Status UNV Risperidone (risperDAL) 0.5 mg Q12HR PO ; Start 02/14/17 at 21:00; Status UNV Thiamine HCl (Vitamin B1) 100 mg DAILY PO ; Start 02/15/17 at 09:00; Status UNV Non-Formulary Medication 2 tab DAILY PO ; Start 02/15/17 at 09:00; Status UNV Family History Denies family history of diabetes/heart disease Social History 20 pack year history of smoking, quit 30 years ago. Denies alcohol or illicit drugs. Physical Exam Vital Signs Vital Signs Date Time Temp Pulse Resp B/P (MAP) Pulse Ox O2 Delivery O2 Flow Rate FiO2 02/14/17 08:00 96.3 92 18 189/81 (117) 94 02/14/17 05:47 162/72 (102) 02/14/17 04:08 87 02/14/17 04:00 96.1 94 18 95 02/14/17 00:00 96.7 100 18 188/91 (123) 96 178/82 (114) Physical Exam GENERAL: This is a well-nourished, well-developed patient, in no apparent distress. SKIN: No rashes, ecchymoses or lesions. Cool and dry. HEAD: Atraumatic. Normocephalic. No temporal or scalp tenderness. EYES: Pupils equal round and reactive. Extraocular motions intact. No scleral icterus. No injection or drainage. ENT: Nose without bleeding, purulent drainage or septal hematoma. Throat without erythema, tonsillar hypertrophy or exudate. Uvula midline. Airway patent. NECK: Trachea midline. No JVD or lymphadenopathy. Supple, nontender, no meningeal signs. CARDIOVASCULAR: Regular rate and rhythm without murmurs, gallops, or rubs. RESPIRATORY: Clear to auscultation. Breath sounds equal bilaterally. No wheezes , rales, or rhonchi. GASTROINTESTINAL: Abdomen soft, non-tender, nondistended. No hepato-splenomegaly , or palpable masses. No guarding. MUSCULOSKELETAL: Extremities without clubbing, cyanosis, or edema. No joint tenderness, effusion, or edema noted. No calf tenderness. Negative Homans sign bilaterally. NEUROLOGICAL: Awake and alert. Cranial nerves II through XII intact. Motor and sensory grossly within normal limits. Five out of 5 muscle strength in all muscle groups. Normal speech. Imaging Last Impressions Brain MRI 02/14/17 0000 Signed Impressions: Service Date/Time: Tuesday, February 14, 2017 08:51 - CONCLUSION: Periventricular white matter changes and lacunar infarcts, negative for inflammatory process. Correlation lumbar puncture with the benefit. Some inflammatory processes can be obscured by MRI.. Bennett Ibarra MD FACR Caprini VTE Risk Assessment Caprini VTE Risk Assessment: Mod/High Risk (score >= 2) Caprini Risk Assessment Model Point Value = 1 Point Value = 2 Point Value = 3 Point Value = 5 Age 41-60 Minor surgery BMI > 25 kg/m2 Swollen legs Varicose veins or History of unexplained or recurrent spontaneous Oral contraceptives or hormone replacement Sepsis (< 1 month) Serious lung disease, including pneumonia (< 1 month) Abnormal pulmonary function Acute myocardial infarction Congestive heart failure (< 1 month) History of inflammatory bowel disease Medical patient at bed rest Age 61-74 Arthroscopic surgery Major open surgery (> 45 min) Laparoscopic surgery (> 45 min) Malignancy Confined to bed (> 72 hours) Immobilizing plaster cast Central venous access Age >= 75 History of VTE Family history of VTE Factor V Leiden Prothrombin [id number] Lupus anticoagulant Anticardiolipin antibodies Elevated serum homocysteine Heparin-induced thrombocytopenia Other congenital or acquired thrombophilia Stroke (< 1 month) Elective arthroplasty Hip, pelvis, or leg fracture Acute spinal cord injury (< 1 month) Prophylaxis Regimen Total Risk Factor Score Risk Level Prophylaxis Regimen 0-1 Low Early ambulation 2 Moderate Order ONE of the following: *Sequential Compression Device (SCD) *Heparin 5000 units SQ BID 3-4 Higher Order ONE of the following medications: *Heparin 5000 units SQ TID *Enoxaparin/Lovenox 40 mg SQ daily (WT < 150 kg, CrCl > 30 mL/min) *Enoxaparin/Lovenox 30 mg SQ daily (WT < 150 kg, CrCl > 10-29 mL/min) *Enoxaparin/Lovenox 30 mg SQ BID (WT < 150 kg, CrCl > 30 mL/min) AND/OR *Sequential Compression Device (SCD) 5 or more Highest Order ONE of the following medications: *Heparin 5000 units SQ TID (Preferred with Epidurals) *Enoxaparin/Lovenox 40 mg SQ daily (WT < 150 kg, CrCl > 30 mL/min) *Enoxaparin/Lovenox 30 mg SQ daily (WT < 150 kg, CrCl > 10-29 mL/min) *Enoxaparin/Lovenox 30 mg SQ BID (WT < 150 kg, CrCl > 30 mL/min) AND *Sequential Compression Device (SCD) Assessment and Plan Assessment and Plan 76-year-old male who was transferred from that site due to altered mental status most likely metabolic in nature Altered mental status -Initially thought to be psychiatric most likely metabolic. EEG was normal. CT scan of head was negative for any acute intracranial process. Carotid ultrasound incomplete concerning for carotid stenosis obtain CTA, echocardiogram nl . EEG normal. MRI did not show any inflammatory process. -Neurologist Dr. Garrido and metastatic and stated that patient may need an LP. Infectious workup done and [facility] was negative. -Visual hallucination seemed to resolve patient is on Risperdal. Hyperkalemia: -seemed to resolve. Potassium is 3.8. Questionable pneumonia -Patient is asymptomatic. -On Rocephin. -Will repeat x-ray tomorrow to see patient needs to continue with antibiotics. Insulin-dependent diabetes mellitus a1c is 7.7 , uncontrolled DM -Will continue home insulin. And start patient on insulin sliding scale. Bladder cancer -Patient received his last chemotherapy ~2 weeks ago -Is scheduled to be seen at [facility] for cystectomy -Oncologist is Dr. Dumont -Oncologist consulted. Anemia -H&H 8.9/26.1 -Stable. Patient at baseline. DVT ppx. Early ambulation. Physician Certification 2 Midnight Certification Type: Admission for Inpatient Services Order for Inpatient Services The services are ordered in accordance with Medicare regulations or non- Medicare payer requirements, as applicable. In the case of services not specified as inpatient-only, they are appropriately provided as inpatient services in accordance with the 2-midnight benchmark. Estimated LOS (days): 3 3 days is the estimated time the patient will need to remain in the hospital, assuming treatment plan goals are met and no additional complications. Post-Hospital Plan: SNF Ashleigh Rangel MD Feb 14, 2017 10:36
[2017-02-14] MEDS: cefTRIAXone INJ 1,000 MG in SODIUM CHLORIDE 0.9% INJ 100 ML IV SCH ×2 (10:48→20:24)
[2017-02-14] MEDS: SODIUM CHLORIDE 0.9% FLUSH 10 ML FLUSH IV FLUSH SCH ×2 (10:48→20:24)
[2017-02-14] MEDS: SODIUM CHLOR 0.9% 1000 ML INJ 1,000 ML IV SCH ×2 (10:50→20:32)
[2017-02-14] MEDS ORDERED: DEXTROSE 50% IN WATER 50 ML VIAL(D50) IV PUSH PRN (11:15)
[2017-02-14] MEDS ORDERED: GLUCAGON 1 MG/ML VIAL OTHER PRN (11:15)
--- NOTE | 2017-02-14 11:57 | PD.ONC.PN ---
Subjective Subjective Remarks Afebrile overnight. Patient much more alert today. He is verbal and is able to tell me his name and that he is at the hospital. We discuss his favorite country music groups Marcus and Chávez and he is able to tell me the name of the current president. Denies pain. He asks me, "what happened?" He does not remember what brought him to the hospital. Objective Data Date Time Temp Pulse Resp B/P (MAP) Pulse Ox O2 Delivery O2 Flow Rate FiO2 02/14/17 08:00 96.3 92 18 189/81 (117) 94 02/14/17 05:47 162/72 (102) 02/14/17 04:08 87 02/14/17 04:00 96.1 94 18 95 02/14/17 00:00 96.7 100 18 188/91 (123) 96 178/82 (114) 02/14/17 02/14/17 02/14/17 07:00 15:00 23:00 Intake Total 240 ml Balance 240 ml Laboratory Results Laboratory Tests Test 02/14/17 11:15 C-Reactive Protein 6.35 MG/DL Imaging Studies Last 24 hours Impressions Brain MRI 02/14/17 0000 Signed Impressions: Service Date/Time: Tuesday, February 14, 2017 08:51 - CONCLUSION: Periventricular white matter changes and lacunar infarcts, negative for inflammatory process. Correlation lumbar puncture with the benefit. Some inflammatory processes can be obscured by MRI.. Bennett Ibarra MD FACR Administered Medications Medications (Trade) Dose Ordered Sig/Myrna Route PRN Reason Start Time Stop Time Status Last Admin Dose Admin Sodium Chloride (NS Flush) 2 ml BID IV FLUSH 02/14/17 09:00 02/14/17 10:48 Ceftriaxone Sodium 1000 mg/ Sodium Chloride 100 ml @ 200 mls/hr Q12H IV 02/14/17 08:00 02/14/17 10:48 Sodium Chloride 1,000 ml @ 75 mls/hr [id number] IV 02/14/17 08:00 02/14/17 10:50 Objective Remarks GENERAL: Elderly male sitting up in bed resting. SKIN: Warm and dry. HEAD: Normocephalic. EYES: No injection or drainage. NECK: Supple, trachea midline. CARDIOVASCULAR: +S1/S2 RESPIRATORY: Breath sounds equal bilaterally. No accessory muscle use. GASTROINTESTINAL: Abdomen soft, non-tender, nondistended. EXTREMITIES: No cyanosis NEUROLOGICAL: awake and alert, normal speech. oriented to place and name. does not know date. 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 Attending Statement The exam, history, and the medical decision-making described in the above note were completed with the assistance of the mid-level provider. I reviewed and agree with the findings presented. I attest that I had a [id number] encounter with the patient on the same day, and personally performed and documented my assessment and findings in the medical record. More awake and alert MRI brain = no mets. Neuro input noted. Suha Logan Feb 14, 2017 11:57 Denny Dumont MD Feb 14, 2017 17:58
[2017-02-14] MEDS ORDERED: INSULIN ASPART SUPPLEMENTAL SCALE SQ SCH (12:00)
[2017-02-14 12:11] LABS: CKMB 3.3 NG/ML (0.5-3.6)
[2017-02-14] MEDS: INSULIN ASPART SUPPLEMENTAL SCALE SQ SCH ×3 (12:56→20:25)
--- NOTE | 2017-02-14 13:02 | HHI.HCPN ---
Reason for visit Palliative care reconsulted today, of note patient known to palliative care from consultation 02/08/17 during current acute hospitalization. . Patient seen to follow-up on symptoms of delirium, confusion. . Subjective/Interval History Palliative care reconsulted today, of note patient known to palliative care from consultation 02/08/17 during current acute hospitalization. Reconsulted for patient continuing to have disorientation, and hallucinations on 02/13/17 while pt in med-psych unit, pt has since be transferred back to medical unit, palliative reconsulted to continue to follow pt. I received voicemail return call from patient healthcare surrogate Donna prior to my arrival to unit, I have attempted to call her back , I have again left her voicemail today. Neurology now following, additional diagnostics per Dr Garrido-additional labs , MRI, possible LP. Patient with reported improvement in mentation neuro exam today. s/p MRI earlier today: " periventricular white matter changes and lacunar infarcts negative for inflammatory process. Correlation LP with benefit some inflammatory process can be obscured by MRI" he was seen in room no visitors present he is alert, oriented 3--able to state his name, date of , knows month is February, , president and names [facility] as location. He tells me he has no recollection of yesterday or prior days, and that he's not really certain what has gone on during hospital course or how many days he has been here. He indicates he is feeling well overall today, "better ", and does not feel "foggy" which he recalls feeling previously. He tells me he feels like he felt when he had CVA 20+ years ago. He denies pain. Denies dyspnea. Denies GI complaints, has fair appetite, endorses just ate lunch. Denies visual or auditory hallucinations, but does recall having them recently. Review w him current consultants, diagnostics pending. Review w him [facility], he tells me Donna and Denis are good friends, advise that I have attempted to update Donna. He hopes he can continue to improve so he may go on to continue his bladder cancer treatments. Left him my contact information. ADDITIONAL HX as per my 02/13/17 visit: Patient was originally admitted to [facility] on 02/06/17. At that time he had apparently been having "weak spells "and possible syncope as well as unsteady gait in the days prior to admission. During that admission electrolyte abnormalities were corrected. CT brain negative for acute process. Echocardiogram with EF 50-55 percent. Urine culture with no growth. He was afebrile with no leukocytosis. He also underwent a CTA, with findings of carotid stenosis left common, right internal and also left vertebral. He was having non-frightening visual hallucinations. Psychiatry evaluated and he was started on Risperdal 02/07, dose increased 02/08. He was still having some visual hallucinations and reporting "not thinking straight "at time of palliative consultation. Her mom reported that had never been a problem for him before. Risperdal was increased and psych added Haldol as needed. Patient was transitioned from medical unit to inpatient psych unit for further management. --Psychiatry evaluation by Dr. Tolentino on 02/10 notes patient with persistent psychotic symptoms despite medical stabilization, suspect maybe primary psychotic disorder or persistent psychotic symptoms related to recent delirium. Petition for involuntary hospital physician started due to concern patient unable to care for self due to current symptomatology. Request for healthcare surrogate and guardian advocate documents completed will request second opinion. --Oncology also reconsulted during psychiatric course--oncology notes that given current condition procedure such as radical cystectomy would need to be deferred. Anemia likely secondary to recent chemotherapy. Continue to follow. During ongoing psychiatric course he continues to have visual hallucinations. He has been receiving antibiotics for pneumonia. Psychiatry on 02/13 notes that patient presenting more with delirious presentation than with primary psychiatric illness. Recommends treating psychiatric symptoms and increasing risperidone to 0.75 by mouth twice a day with upward titration as needed. Neurology consult ordered, as well as palliative care (RE)consult. Oncology recommends MRI brain. --At time of my consultation neurology dictation is not available however additional studies have been ordered by Dr. Garrido of neurology. Pending: Sedimentation rate, HILARIO screen, TSH, free T4, methylmalonic acid, thiamine, ammonia, EEG, ABG. At this time would await these additional studies before making additional changes. MRI of brain may be helpful. Psychiatry has recently increased risperidone. If this is delirium, not clear what causing it. Patient has not recently received any opiates or benzodiazepines. Most recent cultures urine negative, blood 02/10 negative to date. Patient seen in room as lab is completing lab draw. During my exam urology M.D. also in, discussed case with him. Also discussed with primary nurse at bedside--she indicates patient expected to be transferred out of psychiatric unit back to regular medical unit. EEG has just been completed. Patient is awake at times, though eyes closed and lethargic at times. He intermittently follows simple commands for me at one point he sticks out his tongue and shows me his teeth with no apparent facial droop however when I ask him to grasp with his hands he is unable to do so. He does move his right foot to command though again this is indeterminate. Do note involuntary muscle spasm -like movements all over his body. At times his face expression appears distorted/grimacing. Nursing indicates that he has made picking and reaching motions as if he is having visual hallucinations though he is unable to describe for her. She further informs that he is not appeared frightened or tearful during these episodes. When I ask questions regarding orientation etc. he answered with unintelligible sounds. Following exam call to listed healthcare surrogate Donna Chambers, voicemail left with palliative contact information. Family/friend interactions 1530 UPDATE later able to reach [facility] Donna, updated on recent transfers, clinical assessments, consultants following, tx in place, pending and completed diagnostic, and that etiology of AMS/hallucinations/confusion still not known. All questions answered. She will be in later to see pt. She is in agreement to continue w shared decision making w pt as his mental status fluctuates. For now she is supportive of continuing workup to try to help pt recover to prior level of function, health. . Advance Directives Health Care Surrogate: Copy in medical record Advance Directive Specifics Date completed: 02/08/17 Health Care Surrogate(s): Designates friend Donna Chambers as [facility], with alternate Julia Zavaleta Objective Vital Signs Date Time Temp Pulse Resp B/P (MAP) Pulse Ox O2 Delivery O2 Flow Rate FiO2 02/14/17 08:00 96.3 92 18 189/81 (117) 94 02/14/17 05:47 162/72 (102) 02/14/17 04:08 87 02/14/17 04:00 96.1 94 18 95 02/14/17 00:00 96.7 100 18 188/91 (123) 96 178/82 (114) Intake & Output 02/14/17 02/14/17 07:00 19:00 Intake Total 240 ml Balance 240 ml Intake Oral 240 ml Physical Exam CONSTITUTIONAL/GENERAL: This is an adequately nourished patient,awake, pleasant EYES: Pupils equal and round and reactive. Extraocular motions intact. No scleral icterus. No injection or drainage. Fundi not examined. NECK: Trachea midline. Supple, nontender. No palpable thyroid enlargement or nodularity. CARDIOVASCULAR: Regular rate and rhythm without murmurs. No JVD. Peripheral pulses symmetric. RESPIRATORY/CHEST: Symmetric, unlabored respirations. On 2 L. Clear to auscultation. Breath sounds equal bilaterally. GASTROINTESTINAL: Abdomen soft, non-tender, nondistended. No hepato-splenomegaly , or palpable masses. No guarding. Bowel sounds present. MUSCULOSKELETAL: Extremities without clubbing, cyanosis, or edema. No joint tenderness or effusion noted. No calf tenderness. No mottling or clubbing. Left lower extremity BKA, scar well-healed. LYMPHATICS: No palpable cervical or supraclavicular adenopathy. NEUROLOGICAL: Awake and alert. Oriented x3, speech clear. No insight or recall of the past few days events/course. No facial droop. Strength equal bilaterally , + moving left BKA. PSYCHIATRIC: No obvious anxiety/depression or hallucinations. . Diagnostic Tests Laboratory Laboratory Tests Test 02/14/17 11:15 Total Creatine Kinase 655 U/L (39-308) Creatine Kinase MB 3.3 NG/ML (0.5-3.6) Creatine Kinase MB % 0.5 % (0.0-4.0) C-Reactive Protein 6.35 MG/DL (0.00-0.30) Microbiology 02/12/17 urine no growth 02/10/17 blood culture no growth 4 days 02/06/17 urine no growth Imaging Last Impressions Brain MRI 02/14/17 0000 Signed Impressions: Service Date/Time: Tuesday, February 14, 2017 08:51 - CONCLUSION: Periventricular white matter changes and lacunar infarcts, negative for inflammatory process. Correlation lumbar puncture with the benefit. Some inflammatory processes can be obscured by MRI.. Bennett Ibarra MD FACR Assessment and Plan Disease Oriented Problem List: (1) confusion/hallucinations, new onset, ?delirium, without apparent infection (2) electrolyte (potassium and calcium) imbalances (3) history of prostate cancer, s/p radiation (4) bladder cancer July 2016, high-grade muscle invasive urothelial cancer (5) S/P recent completion of cisplatin and Gemzar cycles (6) weakness (7) Hypertension (8) carotid vascular disease (9) remote history of CVA (10) glaucoma (11) insulin-dependent diabetes (12) peripheral arterial disease, severe (13) depression (14) Unspecified psychosis Symptom Scale: (1) confusion/delirium 0-10 Scale: Unable to quantify (2) weakness 0-10 Scale: Unable to quantify Pertinent Non-Medical Issues ( per palliative initial H&P by Dr. Alex Pope) Psychosocial:Born and raised in [place], moved to [place] a few years ago. He lives alone.He has been 3 times, a few years ago from third . He has one child, a son Amadeo Valente living in [place]. 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 .Spiritual:The patient has a [employer] background, and he has attended a local gnosticism intermittently. He is not affiliated with any particular gnosticism or clergy at this time. He is open to mortgage coordinator visits. Legal: Since admission patient had had episodes of confusion and intermittent hallucinations. He has had some awareness of his malignancy, plans for surgery and the gravity of his conditions. Per prior palliative care interactions concern patient may not have total capacity for making decisions though he may be able to identify an appropriate healthcare surrogate and participate in shared decision making. Patient has never completed a living will, or health care surrogate designation. During initial palliative consultation he indicated that he would appoint his close friend and retired nurse Donna Chambers as his HCS.Healthcare surrogate completed naming close friend/retired nurse Donna Chambers as [facility] Ethical issues impacting care: No ethical issues identified . Important Contacts Friend and HEALTHCARE SURROGATE: Donna Chambers [phone] Son: Amadeo Valente [phone] [id number] Julia Zavaleta (alternate healthcare surrogate)[phone] . Prognosis The patient's overall prognosis is somewhat guarded in the long-term. He is in the midst of aggressive treatment for his invasive bladder cancer, and has had worsening weakness, not helped by his ongoing confusion and delirium. Confusion has not improved, despite ongoing psychiatric management in patient in the med psych unit. Etiology still not clear, patient with no history of psychiatric problems. Oncology felt likely secondary to metabolic encephalopathy. If his confusion and inability to participate in activities needed to improve/maintain strength, nutrition continues he will likely experience continued decline and debility, and it is not clear that he will get well enough to obtain additional treatment for his bladder cancer. . Code Status: Full Code Plan * Legal decision maker: Since admission patient had had episodes of confusion and intermittent hallucinations. He has had some awareness of his malignancy, plans for surgery and the gravity of his conditions. Per prior palliative care interactions concern patient may not have total capacity for making decisions though he may be able to identify an appropriate healthcare surrogate and participate in shared decision making. Patient has never completed a living will, or health care surrogate designation. During initial palliative consultation Healthcare surrogate completed naming close friend/retired nurse Donna Chambers as [facility] Healthcare surrogate. Given pt fluctuating mental status would recommend continue shared decision making involving [facility]. * Goals: Patient has previously expressed aggressive goals "to get better "and continuing with planned follow-up at [facility] for probable surgery following his chemotherapy. Still no clear etiology to hallucinations, delirium. Will need ongoing conversation with designated healthcare surrogate as additional diagnostics available per neurology.Following exam call to listed healthcare surrogate Donna Chambers, voicemail left with palliative contact information 02/14/17 ___Awaiting callback from [facility] Donna. Pt neuro status improving, however he has no insight in last few days or hospital course, would still recommend shared decision making w [facility]. later able to speak w [facility], goals remain aggressive. * CODE STATUS: Full code by default. * SYMPTOMS: --Delirium was worsening/now improving.===At time of my consultation neurology dictation is not available however additional studies have been ordered by Dr. Garrido of neurology. Pending: Sedimentation rate, HILARIO screen, TSH, free T4, methylmalonic acid, thiamine, ammonia, EEG, ABG.At this time would await these additional studies before making additional changes. MRI of brain completed today. Psychiatry has recently increased risperidone. If this is delirium, not clear what causing it. Patient has not recently received any opiates or benzodiazepines. Most recent cultures urine 02/12 negative, blood 02/10 negative to date. possible LP per neuro. Neuro status w significant improvement today. --Weakness/debility-as patient continues to be confused and with inability to fully participate in wellness activities likely his weakness and decline will continue. Would benefit from maximized PT, OT when his neurological status allows him to participate. neuro status improved today, pt eating, moving self in bed etc. * Palliative care will continue to follow during hospital course as condition evolves, to assist patient/decision-maker with understanding of medical conditions, weighing benefits/burdens of treatment options, for clarification of goals of treatment. Additionally will assist with any symptoms of palliative concern Time Spent Total Floor Time (mins): 20 (chart review, PE, d/w pt, call to [facility]) Attestation To help prompt me to consider important information that might be impacting today's encounter and assessment, information from prior notes written by myself or my colleagues may have been "brought forward" into today's note. My signature on this note, however, is an attestation that I personally performed the exam, history, and/or decision-making noted today, and, unless otherwise indicated, the interactions with patient, family, and staff as well as the review of records all occurred today. I also attest that the listed assessment and stated plan reflect my best clinical judgment today based on the combination of historical information, prior notes, and today's exam/ interactions. When time spent is documented, it refers only to time spent today by the signer, or if indicated, combined time spent today by collaborating physician/nurse practitioner. Natalie Sanchez Feb 14, 2017 13:02
--- NOTE | 2017-02-14 13:46 | HHI.PYPN ---
Subjective Remarks The patient was seen today for psychiatric reevaluation, was found calm, cooperative, in a good spirit. Patient reports good mood, he describes his mood as "uneventful", denies depressive symptoms, denies anhedonia, denies hopelessness, denies helplessness, he denies suicidal and homicidal ideation. Patient denies visual and auditory hallucinations. No paranoia, no delusions, no denies behavior or speech present at this moment. She is oriented 3, with no attention deficit, no fluctuation of consciousness this moment. Review of Systems Except as stated in HPI: all other systems reviewed are Neg Mental Status Examination Appearance: Appropriate Consciousness: Alert Orientation: x4 Motor Activity: Normal gait Speech: Unremarkable Language: Adequate Fund of Knowledge: Adequate Attention and Concentration: Adequate Memory: Unremarkable Mood: Appropriate Affect: Appropriate Thought Process & Associations: Intact Thought Content: Appropriate Hallucination Type: None Delusion Type: None Suicidal Ideation: No Suicidal Plan: No Suicidal Intention: No Homicidal Ideation: No Homicidal Plan: No Homicidal Intention: No Insight: Adequate Judgment: Adequate Results Labs Test 02/14/17 11:15 Total Creatine Kinase 655 U/L Creatine Kinase MB 3.3 NG/ML Creatine Kinase MB % 0.5 % C-Reactive Protein 6.35 MG/DL Vitals/IOs Vital Signs Date Time Temp Pulse Resp B/P (MAP) Pulse Ox O2 Delivery O2 Flow Rate FiO2 02/14/17 12:00 97.3 88 16 123/60 (81) 99 Intake and Output 02/14/17 02/14/17 02/15/17 08:00 16:00 00:00 Intake Total 240 ml Balance 240 ml Assessment & Plan Problem List: (1) Unspecified psychosis ICD Codes: F29 - Unspecified psychosis not due to a substance or known physiological condition Assessment & Plan: Will restart Risperdal 0.5 mg twice a day. We'll follow-up. Assessment & Plan Estimated LOS: days Justification for Cont. Inpt. Patient does not meet criteria for involuntary psychiatric admission at this moment. I will follow. Aung Cuevas MD Feb 14, 2017 13:46
[2017-02-14] MEDS: LATANOPROST 0.005% OPHT SOLN 2.5 ML BTL RIGHT EYE SCH (20:21)
[2017-02-14] MEDS: DORZOLAMIDE 2% OPTH SOLN 200 DROP/10 ML BTLO RIGHT EYE SCH (20:24)
[2017-02-14] MEDS: INSULIN DETEMIR 100 UNITS/ML VIAL SQ SCH (20:25)
[2017-02-14] MEDS ORDERED: risperiDONE 0.5 MG TAB PO SCH (21:00)
[2017-02-15] VITALS: BP 139/67; PULSE 80; RESP 17; TEMP 96.6; O2SAT 98
[2017-02-15 04:00] VITALS: BP 149/65; PULSE 80; RESP 17; TEMP 95.7; O2SAT 97
--- NOTE | 2017-02-15 07:52 | HHI.PR ---
Subjective Remarks awakens easily this am Objective Vital Signs Date Time Temp Pulse Resp B/P (MAP) Pulse Ox O2 Delivery O2 Flow Rate FiO2 02/15/17 04:00 95.7 80 17 149/65 (93) 97 02/15/17 00:00 96.6 80 17 139/67 (91) 98 02/14/17 20:00 93 02/14/17 20:00 96.6 84 18 140/68 (92) 98 02/14/17 16:00 97.0 87 17 175/77 (109) 98 02/14/17 12:00 97.3 88 16 123/60 (81) 99 02/14/17 08:00 96.3 92 18 189/81 (117) 94 I/O 02/14/17 02/14/17 02/14/17 02/15/17 02/15/17 02/15/17 07:00 15:00 23:00 07:00 15:00 23:00 Intake Total 240 ml 100 ml 795 ml 940 ml Output Total 1000 ml 750 ml Balance 240 ml 100 ml -205 ml 190 ml Intake Oral 240 ml 500 ml 240 ml IV Total 100 ml 295 ml 700 ml Output Urine Total 1000 ml 750 ml # Bowel Movements 0 Objective Remarks awakens and knows hosp and month one off yr but remembers face sym 5/5 Assessment and Plan Assessment and Plan imp encephalopathy abg and nh3 ok chol inc eeg neg off risperdal id dced got dose last noc bladder ca ? septic possible? esr 65 crp 6.5 he looks much better this am will dc abt in am and no antipsychotics he got im haldol and zyprexa and risperdal last week no LP needed now start asa 82 with intracranial stenosis and old r lacunar type cva could be from that much better Gilberto Garrido MD Feb 15, 2017 07:52
[2017-02-15] MEDS: MULTIVITAMINS/MINERALS THERAPEUTIC TAB PO SCH (09:00)
[2017-02-15] MEDS: DORZOLAMIDE 2% OPTH SOLN 200 DROP/10 ML BTLO RIGHT EYE SCH ×2 (09:00→20:38)
[2017-02-15] MEDS: SODIUM CHLORIDE 0.9% FLUSH 10 ML FLUSH IV FLUSH SCH ×2 (09:00→20:21)
--- NOTE | 2017-02-15 10:14 | PD.ONC.PN ---
Subjective Subjective Remarks Afebrile Pt c/o generalized aches and pains from laying in bed Able to tell me where he is and what year it is Objective Data Date Time Temp Pulse Resp B/P (MAP) Pulse Ox O2 Delivery O2 Flow Rate FiO2 02/15/17 04:00 95.7 80 17 149/65 (93) 97 02/15/17 00:00 96.6 80 17 139/67 (91) 98 02/14/17 20:00 93 02/14/17 20:00 96.6 84 18 140/68 (92) 98 02/14/17 16:00 97.0 87 17 175/77 (109) 98 02/14/17 12:00 97.3 88 16 123/60 (81) 99 02/15/17 02/15/17 02/15/17 07:00 15:00 23:00 Intake Total 940 ml Output Total 750 ml Balance 190 ml Laboratory Results Laboratory Tests Test 02/14/17 11:15 Total Creatine Kinase 655 U/L Creatine Kinase MB 3.3 NG/ML Creatine Kinase MB % 0.5 % C-Reactive Protein 6.35 MG/DL Administered Medications Medications (Trade) Dose Ordered Sig/Myrna Route PRN Reason Start Time Stop Time Status Last Admin Dose Admin Sodium Chloride (NS Flush) 2 ml BID IV FLUSH 02/14/17 09:00 02/14/17 20:24 Ceftriaxone Sodium 1000 mg/ Sodium Chloride 100 ml @ 200 mls/hr Q12H IV 02/14/17 08:00 02/14/17 20:24 Sodium Chloride 1,000 ml @ 75 mls/hr [id number] IV 02/14/17 08:00 02/14/17 20:32 Dorzolamide HCl (Trusopt 2% Opth Soln) 1 drop BID RIGHT EYE 02/14/17 21:00 02/14/17 20:24 Latanoprost (Xalatan 0.005% Opth Soln) 1 drop HS RIGHT EYE 02/14/17 21:00 02/14/17 20:21 Insulin Aspart (NovoLOG SUPPLEMENTAL SCALE) 1 ACHS SLIDING SCALE SQ 02/14/17 12:00 02/14/17 20:25 Insulin Detemir (Levemir Inj) 30 units HS SQ 02/14/17 21:00 02/14/17 20:25 Objective Remarks GENERAL: Elderly male sitting up in bed resting. SKIN: Warm and dry. HEAD: Normocephalic. EYES: No injection or drainage. NECK: Supple, trachea midline. CARDIOVASCULAR: +S1/S2 RESPIRATORY: Breath sounds equal bilaterally. No accessory muscle use. GASTROINTESTINAL: Abdomen soft, non-tender, nondistended. EXTREMITIES: No cyanosis. NEUROLOGICAL: Awake and alert, normal speech. Oriented to place, year an self. Assessment/Plan Problem List: (1) bladder cancer July 2016, high-grade muscle invasive urothelial cancer Plan: 02/15: Pt much more lucid. Future chemotherapy will be discussed outpatient. -- Diagnosed in August 2016 with urinary bladder cancer after he presented with hematuria -- Status post TURBT on September 01 -- Pathology showed T2 high-grade muscle invasive urothelial bladder cancer -- He has just completed 4 cycles of neoadjuvant chemotherapy with cisplatin and Gemzar from October to January 2017 -- Patient will need radical cystectomy (2) confusion/hallucinations, new onset, ?delirium, without apparent infection Plan: --neurology following --improved somewhat today, 02/14 --await MRI brain Assessment 76y/o male with bladder cancer, admitted with altered mental status. Attending Statement The exam, history, and the medical decision-making described in the above note were completed with the assistance of the mid-level provider. I reviewed and agree with the findings presented. I attest that I had a [id number] encounter with the patient on the same day, and personally performed and documented my assessment and findings in the medical record. Fully awake and alert, O x 3 asking what happen. can not walk due to severe weakness. Need PT / OT. may benefit from [facility]. No more psychotic meds., he has had paradoxical effect Breonna García Feb 15, 2017 10:14 Denny Dumont MD Feb 15, 2017 17:18
[2017-02-15] MEDS: cefTRIAXone INJ 1,000 MG in SODIUM CHLORIDE 0.9% INJ 100 ML IV SCH ×2 (10:36→20:21)
[2017-02-15] MEDS: INSULIN ASPART SUPPLEMENTAL SCALE SQ SCH ×4 (10:40→22:38)
[2017-02-15] MEDS: INSULIN DETEMIR 100 UNITS/ML VIAL SQ SCH ×2 (10:40→22:39)
[2017-02-15] MEDS: ASPIRIN EC 81 MG TABEC PO SCH (10:40)
[2017-02-15] MEDS: THIAMINE HCL 100 MG TAB PO SCH (10:40)
[2017-02-15] MEDS: SODIUM CHLOR 0.9% 1000 ML INJ 1,000 ML IV SCH (10:44)
[2017-02-15 11:22] LABS: AUTOMATED NEUTROPHIL # 3.7 TH/MM3 (1.8-7.7); BASOPHIL % 0.5 % (0.0-2.0); EOSINOPHIL # 0.2 TH/MM3 (0-0.4); EOSINOPHIL % 2.5 % (0.0-4.0); HEMATOCRIT 27.1 % (39.0-51.0); LYMPH % 17.5 % (9.0-44.0); LYMPHOCYTE # 1.2 TH/MM3 (1.0-4.8); MEAN CELL VOLUME 91.1 FL (80.0-100.0); MONO % 25.5 % (0.0-8.0); PLATELET COUNT 314 TH/MM3 (150-450); RED BLOOD COUNT 2.98 MIL/MM3 (4.50-5.90); RED CELL DISTRIBUTION WIDTH 19.6 % (11.6-17.2); WHITE BLOOD COUNT 6.8 TH/MM3 (4.0-11.0)
[2017-02-15 11:26] LABS: HEMO FLAGS AUTO DIFF
[2017-02-15 11:27] LABS: INTERNATIONAL NORMALIZED RATIO 1.1 RATIO; PROTHROMBIN TIME - PATIENT 10.7 SEC (9.8-11.6)
[2017-02-15 12:00] VITALS: BP 109/55; PULSE 88; RESP 17; TEMP 96.7; O2SAT 100
[2017-02-15 12:07] LABS: BICARBONATE 23.9 MEQ/L (21.0-32.0); POTASSIUM 3.8 MEQ/L (3.5-5.1)
[2017-02-15 12:13] LABS: BANDS 3 % (0-6); EOSINOPHILS 1 % (0-4); METAMYELOCYTES 1 % (0-1); MYELOCYTES 1 % (0-0); NEUTROPHIL # MANUAL DIFF 4.6 TH/MM3 (1.8-7.7); POLYS (SEG NEUTROPHILS) 63 % (16-70); WBC DIFF SAMPLE 100
[2017-02-15 12:14] LABS: ACANTHOCYTES OCC (NORMAL); OVALOCYTES 1+ (NORMAL); PLATELET ESTIMATE SMEAR NORMAL (NORMAL); PLATELET MORPHOLOGY NORMAL (NORMAL); SCAN/DIFF FINAL DIFF MANUAL; TOXIC GRANULATION 2+ (NORMAL)
--- NOTE | 2017-02-15 12:48 | HHI.PYPN ---
Subjective Remarks Patient was seen today for psychiatric reevaluation, patient reports good mood, he immediately recognized me from yesterday, he denies depressive symptoms, he is motivated to continue medical treatment and go back home. He is fully oriented 3, no attention deficit, no fluctuation of consciousness present. Patient denies suicidal and homicidal ideation, he denies visual and auditory hallucinations. Review of Systems Except as stated in HPI: all other systems reviewed are Neg Mental Status Examination Appearance: Appropriate Consciousness: Alert Orientation: x4 Motor Activity: Normal gait Speech: Unremarkable Language: Adequate Fund of Knowledge: Adequate Attention and Concentration: Adequate Memory: Unremarkable Mood: Appropriate Affect: Appropriate Thought Process & Associations: Intact Thought Content: Appropriate Hallucination Type: None Delusion Type: None Suicidal Ideation: No Suicidal Plan: No Suicidal Intention: No Homicidal Ideation: No Homicidal Plan: No Homicidal Intention: No Insight: Adequate Judgment: Adequate Results Labs Test 02/15/17 10:00 White Blood Count 6.8 TH/MM3 Red Blood Count 2.98 MIL/MM3 Hemoglobin 9.2 GM/DL Hematocrit 27.1 % Mean Corpuscular Volume 91.1 FL Mean Corpuscular Hemoglobin 31.0 PG Mean Corpuscular Hemoglobin Concent 34.0 % Red Cell Distribution Width 19.6 % Platelet Count 314 TH/MM3 Mean Platelet Volume 8.5 FL Neutrophils (%) (Auto) 54.0 % Lymphocytes (%) (Auto) 17.5 % Monocytes (%) (Auto) 25.5 % Eosinophils (%) (Auto) 2.5 % Basophils (%) (Auto) 0.5 % Neutrophils # (Auto) 3.7 TH/MM3 Lymphocytes # (Auto) 1.2 TH/MM3 Monocytes # (Auto) 1.7 TH/MM3 Eosinophils # (Auto) 0.2 TH/MM3 Basophils # (Auto) 0.0 TH/MM3 CBC Comment AUTO DIFF Differential Total Cells Counted 100 Neutrophils % (Manual) 63 % Band Neutrophils % 3 % Lymphocytes % 13 % Monocytes % 18 % Eosinophils % 1 % Neutrophils # (Manual) 4.6 TH/MM3 Metamyelocytes 1 % Myelocytes 1 % Differential Comment FINAL DIFF MANUAL Toxic Granulation 2+ Platelet Estimate NORMAL Platelet Morphology Comment NORMAL Ovalocytes 1+ Acanthocytes OCC Prothrombin Time 10.7 SEC Prothromb Time International Ratio 1.1 RATIO Blood Urea Nitrogen 15 MG/DL Creatinine 1.05 MG/DL Random Glucose 137 MG/DL Calcium Level 7.8 MG/DL Sodium Level 140 MEQ/L Potassium Level 3.8 MEQ/L Chloride Level 108 MEQ/L Carbon Dioxide Level 23.9 MEQ/L Anion Gap 8 MEQ/L Estimat Glomerular Filtration Rate 69 ML/MIN Vitals/IOs Vital Signs Date Time Temp Pulse Resp B/P (MAP) Pulse Ox O2 Delivery O2 Flow Rate FiO2 02/15/17 12:00 96.7 88 17 109/55 (73) 100 Intake and Output 02/15/17 02/15/17 02/16/17 08:00 16:00 00:00 Intake Total 940 ml 300 ml Balance 940 ml 300 ml Assessment & Plan Problem List: (1) Unspecified psychosis ICD Codes: F29 - Unspecified psychosis not due to a substance or known physiological condition Assessment & Plan: Patient does not present any neuropsychiatric symptom at this moment that requires immediate psychiatric intervention. Patient does not meet criteria for psychiatric admission at this moment. Psychiatry signing off. Assessment & Plan Estimated LOS: days Justification for Cont. Inpt. No psychiatric intervention needed. Aung Cuevas MD Feb 15, 2017 12:48
--- NOTE | 2017-02-15 13:09 | HHI.PR ---
Subjective Remarks Follow-up visit IDDM, HTN, bladder cancer, metabolic encephalopathy. Patient seen and examined today sitting in the chair. Reports he is doing well. On 2 L nasal cannula. Denies shortness of breath or dyspnea. States that he declines physical therapy walking around because he still weak and unable to do it. Patient is aware of the city where he is at, the year, the month, and the hospital name. Denies any fevers or chills. Denies chest pain, palpitations, headaches, dizziness. Denies nausea, vomiting, diarrhea. Reports constipation. Denies dysuria. Objective Vitals Vital Signs Date Time Temp Pulse Resp B/P (MAP) Pulse Ox O2 Delivery O2 Flow Rate FiO2 02/15/17 12:00 96.7 88 17 109/55 (73) 100 02/15/17 04:00 95.7 80 17 149/65 (93) 97 02/15/17 00:00 96.6 80 17 139/67 (91) 98 02/14/17 20:00 93 02/14/17 20:00 96.6 84 18 140/68 (92) 98 02/14/17 16:00 97.0 87 17 175/77 (109) 98 I/O 02/14/17 02/14/17 02/14/17 02/15/17 02/15/17 02/15/17 07:00 15:00 23:00 07:00 15:00 23:00 Intake Total 240 ml 100 ml 795 ml 940 ml 300 ml Output Total 1000 ml 750 ml Balance 240 ml 100 ml -205 ml 190 ml 300 ml Intake Oral 240 ml 500 ml 240 ml IV Total 100 ml 295 ml 700 ml 300 ml Output Urine Total 1000 ml 750 ml # Bowel Movements 0 Result Diagram: 02/15/17 1000 02/15/17 1000 Imaging Last Impressions Brain MRI 02/14/17 0000 Signed Impressions: Service Date/Time: Tuesday, February 14, 2017 08:51 - CONCLUSION: Periventricular white matter changes and lacunar infarcts, negative for inflammatory process. Correlation lumbar puncture with the benefit. Some inflammatory processes can be obscured by MRI.. Bennett Ibarra MD FACR Objective Remarks GENERAL: This is a well-nourished, well-developed patient, in no apparent distress. SKIN: Warm and dry. HEENT: Normocephalic. Pupils equal round and reactive. Nose without bleeding. Airway patent. NECK: Trachea midline. No JVD. Supple. CARDIOVASCULAR: Regular rate and rhythm without murmurs, gallops, or rubs. RESPIRATORY: Clear to auscultation. Breath sounds equal bilaterally. No wheezes , rales, or rhonchi. GASTROINTESTINAL: Abdomen soft, non-tender, protuberans. Bowel Sounds active. : Caballero catheter draining clear yellow urine MUSCULOSKELETAL: Extremities without clubbing, cyanosis, or edema. Left AKA. NEUROLOGICAL: Awake and alert. Oriented to time, place, person. No focal neuro deficit. Moves all extremities. Normal speech. A/P Problem List: (1) confusion/delirium (2) Unspecified psychosis ICD Code: F29 - Unspecified psychosis not due to a substance or known physiological condition (3) history of prostate cancer, s/p radiation (4) electrolyte (potassium and calcium) imbalances Assessment and Plan 76-year-old male who was transferred from that site due to altered mental status most likely metabolic in nature Altered mental status - Initially thought to be psychiatric most likely metabolic. EEG was normal. CT scan of head was negative for any acute intracranial process. - Carotid ultrasound incomplete concerning for carotid stenosis obtain CTA, echocardiogram WNL . EEG normal. MRI did not show any inflammatory process. - Neurologist Dr. Garrido suspect metastatic vs infectious and stated that patient may need an LP. However patient's mentation is improved and thinks that no LP to be done for now start ASA 81mg. - Infectious workup done in [facility] was negative. - Visual hallucination seemed to resolve patient is on Risperdal. Hyperkalemia: - Resolved. Potassium is 3.8. Questionable pneumonia - Patient is asymptomatic. - On Rocephin. - Check CXR if negative dc IV ABX Insulin-dependent diabetes mellitus a1c is 7.7 , uncontrolled DM - Will continue home insulin. Insulin sliding scale. Bladder cancer - Patient received his last chemotherapy ~2 weeks ago - Scheduled to be seen at [facility] for cystectomy - Oncologist is Dr. Dumont - Oncologist consulted. Anemia -H&H 8.9/26.1 -Stable. Patient at baseline. DVT ppx. Early ambulation. Discharge Planning Plan to discharge home when cleared by neurology, and clinically stable. Chandu Swanson Feb 15, 2017 13:09
--- NOTE | 2017-02-15 13:54 | HHI.HCPN ---
Reason for visit Palliative care reconsulted today, of note patient known to palliative care from consultation 02/08/17 during current acute hospitalization. . Patient seen to follow-up on symptoms of delirium, confusion. . Subjective/Interval History Pt seen today to f/up on neurological status, goals. Psychiatry signed off today; pt w no further hallucinations, or other neuropsychiatric symptoms. Neurology cont to follow, no plans for LP at this time as neurological status has improved. Neurology notes ? Possible sepsis, patient looking much better, will DC Abx in a.m. no antipsychotics. Patient was some intracranial stenosis and old right lacunar type CVA could be from that. Patient seen in room with primary nurse present. He is up in a chair at bedside he is alert, oriented he remembers me from yesterday. He has some insight into current hospital course but does not recall prior day's events during his confused and hallucinating state. He denies pain other than what he calls some "mild usual aches and pains ". He denies dyspnea. Denies any GI complaints. Endorses good appetite though" they brought him breakfast too late today". His only complaint is the weakness he feels in his upper extremities and lower extremity, we explored continuing to work with PT, OT to maximize function, mobility, strength. His goals are continued to improve, to get out of the hospital and continue with his treatments for bladder cancer. He informs that he has things he needs to do and wants to get well. He tells me his friend and healthcare surrogate Donna visited him last night. Following exam call to healthcare surrogate and Friend Donna to provide update ADDITIONAL HX as per my 02/13/17 visit: Patient was originally admitted to [facility] on 02/06/17. At that time he had apparently been having "weak spells "and possible syncope as well as unsteady gait in the days prior to admission. During that admission electrolyte abnormalities were corrected. CT brain negative for acute process. Echocardiogram with EF 50-55 percent. Urine culture with no growth. He was afebrile with no leukocytosis. He also underwent a CTA, with findings of carotid stenosis left common, right internal and also left vertebral. He was having non-frightening visual hallucinations. Psychiatry evaluated and he was started on Risperdal 02/07, dose increased 02/08. He was still having some visual hallucinations and reporting "not thinking straight "at time of palliative consultation. Her mom reported that had never been a problem for him before. Risperdal was increased and psych added Haldol as needed. Patient was transitioned from medical unit to inpatient psych unit for further management. --Psychiatry evaluation by Dr. Tolentino on 02/10 notes patient with persistent psychotic symptoms despite medical stabilization, suspect maybe primary psychotic disorder or persistent psychotic symptoms related to recent delirium. Petition for involuntary hospital physician started due to concern patient unable to care for self due to current symptomatology. Request for healthcare surrogate and guardian advocate documents completed will request second opinion. --Oncology also reconsulted during psychiatric course--oncology notes that given current condition procedure such as radical cystectomy would need to be deferred. Anemia likely secondary to recent chemotherapy. Continue to follow. During ongoing psychiatric course he continues to have visual hallucinations. He has been receiving antibiotics for pneumonia. Psychiatry on 02/13 notes that patient presenting more with delirious presentation than with primary psychiatric illness. Recommends treating psychiatric symptoms and increasing risperidone to 0.75 by mouth twice a day with upward titration as needed. Neurology consult ordered, as well as palliative care (RE)consult. Oncology recommends MRI brain. --At time of my consultation neurology dictation is not available however additional studies have been ordered by Dr. Garrido of neurology. Pending: Sedimentation rate, HILARIO screen, TSH, free T4, methylmalonic acid, thiamine, ammonia, EEG, ABG. At this time would await these additional studies before making additional changes. MRI of brain may be helpful. Psychiatry has recently increased risperidone. If this is delirium, not clear what causing it. Patient has not recently received any opiates or benzodiazepines. Most recent cultures urine negative, blood 02/10 negative to date. Patient seen in room as lab is completing lab draw. During my exam urology M.D. also in, discussed case with him. Also discussed with primary nurse at bedside--she indicates patient expected to be transferred out of psychiatric unit back to regular medical unit. EEG has just been completed. Patient is awake at times, though eyes closed and lethargic at times. He intermittently follows simple commands for me at one point he sticks out his tongue and shows me his teeth with no apparent facial droop however when I ask him to grasp with his hands he is unable to do so. He does move his right foot to command though again this is indeterminate. Do note involuntary muscle spasm -like movements all over his body. At times his face expression appears distorted/grimacing. Nursing indicates that he has made picking and reaching motions as if he is having visual hallucinations though he is unable to describe for her. She further informs that he is not appeared frightened or tearful during these episodes. When I ask questions regarding orientation etc. he answered with unintelligible sounds. Following exam call to listed healthcare surrogate Donna Chambers, voicemail left with palliative contact information. Family/friend interactions call to friend/HCS Donna, provided update, review of diagnostics, current assessments, tx in place. She is supportive of cont aggressive goals.She does share that pt last night reported to her possibly "going to a green party recently with alot of people", as he must of hallucinated that, but he was not actively hallucinating during her visit. All questions answered, she has palliative contact information. . Advance Directives Health Care Surrogate: Copy in medical record Advance Directive Specifics Date completed: 02/08/17 Health Care Surrogate(s): Designates friend Donna Chambers as [facility], with alternate Julia Zavaleta Objective Vital Signs Date Time Temp Pulse Resp B/P (MAP) Pulse Ox O2 Delivery O2 Flow Rate FiO2 02/15/17 12:00 96.7 88 17 109/55 (73) 100 02/15/17 04:00 95.7 80 17 149/65 (93) 97 02/15/17 00:00 96.6 80 17 139/67 (91) 98 02/14/17 20:00 93 02/14/17 20:00 96.6 84 18 140/68 (92) 98 02/14/17 16:00 97.0 87 17 175/77 (109) 98 Intake & Output 02/15/17 02/15/17 07:00 19:00 Intake Total 940 ml 300 ml Output Total 750 ml Balance 190 ml 300 ml Intake Oral 240 ml IV Total 700 ml 300 ml Output Urine Total 750 ml Physical Exam CONSTITUTIONAL/GENERAL: This is an adequately nourished patient,awake, pleasant EYES: Pupils equal and round and reactive. Extraocular motions intact. No scleral icterus. No injection or drainage. Fundi not examined. NECK: Trachea midline. Supple, nontender. No palpable thyroid enlargement or nodularity. CARDIOVASCULAR: Regular rate and rhythm without murmurs. No JVD. Peripheral pulses symmetric. RESPIRATORY/CHEST: Symmetric, unlabored respirations. On 2 L. Clear to auscultation. Breath sounds equal bilaterally. GASTROINTESTINAL: Abdomen soft, non-tender, nondistended. No hepato-splenomegaly , or palpable masses. No guarding. Bowel sounds present. MUSCULOSKELETAL: Extremities without clubbing, cyanosis, or edema. No joint tenderness or effusion noted. No calf tenderness. No mottling or clubbing. Left lower extremity BKA, scar well-healed. LYMPHATICS: No palpable cervical or supraclavicular adenopathy. NEUROLOGICAL: Awake and alert. Oriented x3, speech clear. No insight or recall of the past few days events/course. No facial droop. Strength equal bilaterally , + moving left BKA. PSYCHIATRIC: No obvious anxiety/depression or hallucinations. . Diagnostic Tests Laboratory Laboratory Tests Test 02/14/17 11:15 02/15/17 10:00 Total Creatine Kinase 655 U/L (39-308) Creatine Kinase MB 3.3 NG/ML (0.5-3.6) Creatine Kinase MB % 0.5 % (0.0-4.0) C-Reactive Protein 6.35 MG/DL (0.00-0.30) White Blood Count 6.8 TH/MM3 (4.0-11.0) Red Blood Count 2.98 MIL/MM3 (4.50-5.90) Hemoglobin 9.2 GM/DL (13.0-17.0) Hematocrit 27.1 % (39.0-51.0) Mean Corpuscular Volume 91.1 FL (80.0-100.0) Mean Corpuscular Hemoglobin 31.0 PG (27.0-34.0) Mean Corpuscular Hemoglobin Concent 34.0 % (32.0-36.0) Red Cell Distribution Width 19.6 % (11.6-17.2) Platelet Count 314 TH/MM3 (150-450) Mean Platelet Volume 8.5 FL (7.0-11.0) Neutrophils (%) (Auto) 54.0 % (16.0-70.0) Lymphocytes (%) (Auto) 17.5 % (9.0-44.0) Monocytes (%) (Auto) 25.5 % (0.0-8.0) Eosinophils (%) (Auto) 2.5 % (0.0-4.0) Basophils (%) (Auto) 0.5 % (0.0-2.0) Neutrophils # (Auto) 3.7 TH/MM3 (1.8-7.7) Lymphocytes # (Auto) 1.2 TH/MM3 (1.0-4.8) Monocytes # (Auto) 1.7 TH/MM3 (0-0.9) Eosinophils # (Auto) 0.2 TH/MM3 (0-0.4) Basophils # (Auto) 0.0 TH/MM3 (0-0.2) CBC Comment AUTO DIFF Differential Total Cells Counted 100 Neutrophils % (Manual) 63 % (16-70) Band Neutrophils % 3 % (0-6) Lymphocytes % 13 % (9-44) Monocytes % 18 % (0-8) Eosinophils % 1 % (0-4) Neutrophils # (Manual) 4.6 TH/MM3 (1.8-7.7) Metamyelocytes 1 % (0-1) Myelocytes 1 % (0-0) Differential Comment FINAL DIFF MANUAL Toxic Granulation 2+ (NORMAL) Platelet Estimate NORMAL (NORMAL) Platelet Morphology Comment NORMAL (NORMAL) Ovalocytes 1+ (NORMAL) Acanthocytes OCC (NORMAL) Prothrombin Time 10.7 SEC (9.8-11.6) Prothromb Time International Ratio 1.1 RATIO Blood Urea Nitrogen 15 MG/DL (7-18) Creatinine 1.05 MG/DL (0.60-1.30) Random Glucose 137 MG/DL (74-106) Calcium Level 7.8 MG/DL (8.5-10.1) Sodium Level 140 MEQ/L (136-145) Potassium Level 3.8 MEQ/L (3.5-5.1) Chloride Level 108 MEQ/L (98-107) Carbon Dioxide Level 23.9 MEQ/L (21.0-32.0) Anion Gap 8 MEQ/L (5-15) Estimat Glomerular Filtration Rate 69 ML/MIN (>89) Result Diagram: 02/15/17 1000 02/15/17 1000 Assessment and Plan Disease Oriented Problem List: (1) confusion/hallucinations, new onset, ?delirium, without apparent infection (2) electrolyte (potassium and calcium) imbalances (3) history of prostate cancer, s/p radiation (4) bladder cancer July 2016, high-grade muscle invasive urothelial cancer (5) S/P recent completion of cisplatin and Gemzar cycles (6) weakness (7) Hypertension (8) carotid vascular disease (9) remote history of CVA (10) glaucoma (11) insulin-dependent diabetes (12) peripheral arterial disease, severe (13) depression (14) Unspecified psychosis Symptom Scale: (1) confusion/delirium 0-10 Scale: Unable to quantify (2) weakness 0-10 Scale: Unable to quantify Pertinent Non-Medical Issues ( per palliative initial H&P by Dr. Alex Pope) Psychosocial:Born and raised in [place], moved to [place] a few years ago. He lives alone.He has been 3 times, a few years ago from third . He has one child, a son Amadeo Valente living in [place]. 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 .Spiritual:The patient has a Holiness background, and he has attended a local jainism intermittently. He is not affiliated with any particular jainism or clergy at this time. He is open to sap basis architect visits. Legal: Since admission patient had had episodes of confusion and intermittent hallucinations. He has had some awareness of his malignancy, plans for surgery and the gravity of his conditions. Per prior palliative care interactions concern patient may not have total capacity for making decisions though he may be able to identify an appropriate healthcare surrogate and participate in shared decision making. Patient has never completed a living will, or health care surrogate designation. During initial palliative consultation he indicated that he would appoint his close friend and retired nurse Donna Chambers as his HCS.Healthcare surrogate completed naming close friend/retired nurse Donna Chambers as HCS Ethical issues impacting care: No ethical issues identified . Important Contacts Friend and HEALTHCARE SURROGATE: Donna Chambers [phone] Son: Amadeo Valente [phone] [id number] Julia Zavaleta (alternate healthcare surrogate)[phone] . Prognosis The patient's overall prognosis is somewhat guarded in the long-term. He is in the midst of aggressive treatment for his invasive bladder cancer, and has had worsening weakness, not helped by his ongoing confusion and delirium. Confusion has not improved, despite ongoing psychiatric management in patient in the med psych unit. Etiology still not clear, patient with no history of psychiatric problems. Oncology felt likely secondary to metabolic encephalopathy. If his confusion and inability to participate in activities needed to improve/maintain strength, nutrition continues he will likely experience continued decline and debility, and it is not clear that he will get well enough to obtain additional treatment for his bladder cancer. . Code Status: Full Code Plan * Legal decision maker: Since admission patient had had episodes of confusion and intermittent hallucinations. He has had some awareness of his malignancy, plans for surgery and the gravity of his conditions. Per prior palliative care interactions concern patient may not have total capacity for making decisions though he may be able to identify an appropriate healthcare surrogate and participate in shared decision making. Patient has never completed a living will, or health care surrogate designation. During initial palliative consultation Healthcare surrogate completed naming close friend/retired nurse Donna Chambers as HCS Healthcare surrogate. Given pt fluctuating mental status would recommend continue shared decision making involving HCS. * Goals: Patient has previously expressed aggressive goals "to get better "and continuing with planned follow-up at [facility] for probable surgery following his chemotherapy. Still no clear etiology to hallucinations, delirium. Will need ongoing conversation with designated healthcare surrogate as additional diagnostics available per neurology.Following exam call to listed healthcare surrogate Donna Chambers, voicemail left with palliative contact information 02/15 Pt neurological status improving. Goals remain aggressive. * CODE STATUS: Full code by default. * SYMPTOMS: --Delirium was worsening, now improving.===At time of my consultation neurology dictation is not available however additional studies have been ordered by Dr. Garrido of neurology. Pending: Sedimentation rate, HILARIO screen, TSH, free T4, methylmalonic acid, thiamine, ammonia, EEG, ABG.At this time would await these additional studies before making additional changes. MRI of brain completed today. Psychiatry has recently increased risperidone. If this is delirium, not clear what causing it. Patient has not recently received any opiates or benzodiazepines. Most recent cultures urine 02/12 negative, blood 02/10 negative to date. possible LP per neuro. Neuro status w significant improvement today, yesterday --Weakness/debility-as patient continues to be confused and with inability to fully participate in wellness activities likely his weakness and decline will continue. Would benefit from maximized PT, OT as neurological status improving. neuro status improved today, pt eating, moving self in bed etc. * Palliative care will continue to follow during hospital course as condition evolves, to assist patient/decision-maker with understanding of medical conditions, weighing benefits/burdens of treatment options, for clarification of goals of treatment. Additionally will assist with any symptoms of palliative concern Time Spent Total Floor Time (mins): 20 (chart review, PE, d/w nursing, [facility]) Attestation To help prompt me to consider important information that might be impacting today's encounter and assessment, information from prior notes written by myself or my colleagues may have been "brought forward" into today's note. My signature on this note, however, is an attestation that I personally performed the exam, history, and/or decision-making noted today, and, unless otherwise indicated, the interactions with patient, family, and staff as well as the review of records all occurred today. I also attest that the listed assessment and stated plan reflect my best clinical judgment today based on the combination of historical information, prior notes, and today's exam/ interactions. When time spent is documented, it refers only to time spent today by the signer, or if indicated, combined time spent today by collaborating physician/nurse practitioner. Natalie Sanchez Feb 15, 2017 13:54
[2017-02-15 16:00] VITALS: BP 115/35; PULSE 87; PULSE 92; RESP 16; TEMP 96.1; O2SAT 96
[2017-02-15 20:00] VITALS: BP 174/78; PULSE 95; PULSE 96; RESP 17; TEMP 98.1; O2SAT 95
[2017-02-15] MEDS: LATANOPROST 0.005% OPHT SOLN 2.5 ML BTL RIGHT EYE SCH (20:18)
[2017-02-16] VITALS (7 sets, daily range): BP systolic 163–192; BP diastolic 72–89; PULSE 74–96; RESP 16–20; TEMP 97–98.7; O2SAT 94–97
[2017-02-16] MEDS: SODIUM CHLOR 0.9% 1000 ML INJ 1,000 ML IV SCH ×2 (06:31→13:16)
[2017-02-16] MEDS: INSULIN ASPART SUPPLEMENTAL SCALE SQ SCH ×5 (08:00→21:00)
--- NOTE | 2017-02-16 08:01 | HHI.PR ---
Subjective Remarks awake alert Objective Vital Signs Date Time Temp Pulse Resp B/P (MAP) Pulse Ox O2 Delivery O2 Flow Rate FiO2 02/16/17 04:00 98.1 96 16 170/79 (109) 97 02/16/17 00:00 97.0 92 17 171/72 (105) 96 02/15/17 20:00 98.1 95 17 174/78 (110) 95 02/15/17 20:00 96 02/15/17 16:00 96.1 87 16 115/35 (61) 96 02/15/17 16:00 92 02/15/17 12:00 88 02/15/17 12:00 96.7 88 17 109/55 (73) 100 I/O 02/15/17 02/15/17 02/15/17 02/16/17 02/16/17 02/16/17 07:00 15:00 23:00 07:00 15:00 23:00 Intake Total 940 ml 400 ml 400 ml 360 ml Output Total 750 ml 1150 ml 350 ml Balance 190 ml 400 ml -750 ml 10 ml Intake Oral 240 ml 400 ml 360 ml IV Total 700 ml 400 ml Output Urine Total 750 ml 1150 ml 350 ml # Bowel Movements 0 Result Diagram: 02/15/17 1000 02/15/17 1000 Objective Remarks awakens and knows hosp and month face sym 5/5 feels back to nl not ambulating well he states too weak Assessment and Plan Assessment and Plan imp encephalopathy abg and nh3 ok chol inc eeg neg off risperdal id dced got dose last noc bladder ca ? septic possible? esr 65 crp 6.5 he looks much better this am will dc abt in am and no antipsychotics he got im haldol and zyprexa and risperdal last week no LP needed now start asa 82 with intracranial stenosis and old r lacunar type cva could be from that much better 02/16/17 all better neurowise i will leave it up to med team to dc abt his ldl inc HE NEEDS STATIN FOR INC LDL AND INTRACRANIAL APPARENTLY ASX STENOSIS and 82 asa aday need PT and oob and maybe rehab if not walking well needs bp control ORIGINALLY HE CAM IN FOR SYNCOPE I BELIEVE AND IF CARDS NEVER SAW HIM FOR SYNCOPE THEY SHOULD i will sign off and fu o/p Gilberto Garrido MD Feb 16, 2017 08:01
[2017-02-16] MEDS: cefTRIAXone INJ 1,000 MG in SODIUM CHLORIDE 0.9% INJ 100 ML IV SCH (08:29)
[2017-02-16] MEDS: THIAMINE HCL 100 MG TAB PO SCH (08:31)
[2017-02-16] MEDS: ASPIRIN EC 81 MG TABEC PO SCH (08:31)
[2017-02-16] MEDS: SODIUM CHLORIDE 0.9% FLUSH 10 ML FLUSH IV FLUSH SCH ×2 (08:31→21:00)
[2017-02-16] MEDS: MULTIVITAMINS/MINERALS THERAPEUTIC TAB PO SCH (08:31)
[2017-02-16] MEDS: DORZOLAMIDE 2% OPTH SOLN 200 DROP/10 ML BTLO RIGHT EYE SCH ×2 (08:35→22:30)
[2017-02-16] MEDS: INSULIN DETEMIR 100 UNITS/ML VIAL SQ SCH ×2 (08:39→22:22)
--- NOTE | 2017-02-16 09:18 | HHI.PR ---
Subjective Remarks Follow-up visit IDDM, HTN, bladder cancer, metabolic encephalopathy. Patient seen and examined today. More awake and alert. Know year and city where is is at. States refuse participation in physical therapy because she was approached with "little girl has his size" and he is not comfortable with her. Patient states that he is to develop trust that he started to fall. Denies dizziness, headaches, chest pain, palpitations, shortness of breath or dyspnea. Denies fevers, chills, nausea, vomiting, diarrhea. Objective Vitals Vital Signs Date Time Temp Pulse Resp B/P (MAP) Pulse Ox O2 Delivery O2 Flow Rate FiO2 02/16/17 08:00 98.3 90 17 167/74 (105) 95 02/16/17 04:00 98.1 96 16 170/79 (109) 97 02/16/17 00:00 97.0 92 17 171/72 (105) 96 02/15/17 20:00 98.1 95 17 174/78 (110) 95 02/15/17 20:00 96 02/15/17 16:00 96.1 87 16 115/35 (61) 96 02/15/17 16:00 92 02/15/17 12:00 88 02/15/17 12:00 96.7 88 17 109/55 (73) 100 I/O 02/15/17 02/15/17 02/15/17 02/16/17 02/16/17 02/16/17 07:00 15:00 23:00 07:00 15:00 23:00 Intake Total 940 ml 400 ml 400 ml 360 ml Output Total 750 ml 1150 ml 350 ml Balance 190 ml 400 ml -750 ml 10 ml Intake Oral 240 ml 400 ml 360 ml IV Total 700 ml 400 ml Output Urine Total 750 ml 1150 ml 350 ml # Bowel Movements 0 Result Diagram: 02/15/17 1000 02/15/17 1000 Imaging Last Impressions Brain MRI 02/14/17 0000 Signed Impressions: Service Date/Time: Tuesday, February 14, 2017 08:51 - CONCLUSION: Periventricular white matter changes and lacunar infarcts, negative for inflammatory process. Correlation lumbar puncture with the benefit. Some inflammatory processes can be obscured by MRI.. Bennett Ibarra MD FACR Objective Remarks GENERAL: This is a well-nourished, well-developed patient, in no apparent distress. SKIN: Warm and dry. Pale HEENT: Normocephalic. Pupils equal round and reactive. Nose without bleeding. Airway patent. NECK: Trachea midline. No JVD. Supple. CARDIOVASCULAR: Regular rate and rhythm without murmurs, gallops, or rubs. RESPIRATORY: Clear to auscultation. Breath sounds equal bilaterally. No wheezes , rales, or rhonchi. GASTROINTESTINAL: Abdomen soft, non-tender, protuberans. Bowel Sounds active. : Caballero catheter draining clear yellow urine MUSCULOSKELETAL: Extremities without clubbing, cyanosis, or edema. Left AKA. NEUROLOGICAL: Awake and alert. Oriented to year, place, person. No focal neuro deficit. Moves all extremities. Normal speech. A/P Problem List: (1) confusion/delirium (2) Unspecified psychosis ICD Code: F29 - Unspecified psychosis not due to a substance or known physiological condition (3) history of prostate cancer, s/p radiation (4) electrolyte (potassium and calcium) imbalances Assessment and Plan 76-year-old male who was transferred from that site due to altered mental status most likely metabolic in nature Altered mental status - Initially thought to be psychiatric most likely metabolic. EEG was normal. CT scan of head was negative for any acute intracranial process. - Carotid ultrasound incomplete concerning for carotid stenosis obtain CTA, echocardiogram WNL . EEG normal. MRI did not show any inflammatory process. - Neurologist Dr. Garrido suspect metastatic vs infectious and stated that patient may need an LP. However patient's mentation is improved and thinks that no LP to be done for now start ASA 81mg. - Infectious workup done in [facility] was negative. - Visual hallucination seemed to resolve patient is on Risperdal. - Cardiology Consulted initial patient presentation with syncope - Improved mentation Hypertension, uncontrolled - on Norvasc 10mg daily - Add Atorvastatin 20 mg daily - Start patient on metoprolol 25 mg by mouth twice a day, clonidine when necessary - Monitor BP trend Gen weakness - PT evaluate - Cardiology consult. syncope? Hyperkalemia: - Resolved. Potassium is 3.8. Questionable pneumonia - Patient is asymptomatic. - CXR negative. DC ABX. Insulin-dependent diabetes mellitus a1c is 7.7 , uncontrolled DM - Will continue home insulin. Insulin sliding scale. Bladder cancer - Patient received his last chemotherapy ~2 weeks ago - Scheduled to be [facility] at [facility] for cystectomy - Oncologist is Dr. Dumont - Oncologist consulted. Anemia -H&H 8.9/26.1 -Stable. Patient at baseline. DVT ppx. Early ambulation. Discharge Planning Plan to discharge SNF when clinically stable, BP under control. Chandu Swanson Feb 16, 2017 09:18
[2017-02-16] MEDS ORDERED: INFLUENZA VIRUS VACCINE (QUADRIVALENT) 0.5 ML SYR IM ONE (10:00)
[2017-02-16] MEDS: ATORVASTATIN 20 MG TAB PO SCH (11:28)
--- NOTE | 2017-02-16 12:28 | MB ---
cc: MERCEDEZ GRIMES DATE OF CONSULTATION: 02/16/2017 1941 REASON FOR CONSULTATION Syncope. HISTORY OF PRESENT ILLNESS 76-year-old male with past medical history significant for diabetes, hypertension, PAD, status post ujuin-nnz-opup amputation, carotid artery disease , hyperlipidemia, COPD and bladder cancer, who presented with altered mental status. He was evaluated by psychiatry. However, conclusion was that this change in mental status was not psychotic in nature, however was metabolic encephalopathy. The patient has been cleared from his hallucinations and is more clear today. There is a question whether on Monday he had syncope, however this is not certain. The patient denies recollection of any events and he is unable to give further details. The patient denies chest pain, shortness of breath, palpitations, PND, leg swelling. EKG shows sinus rhythm with nonspecific ST changes. He has a known echocardiogram done at the end of January 2017 showing a preserved ejection fraction with estimated EF of 50% with no wall motion abnormalities, no valvulopathies and no shunts. Cardiology has been consulted for syncope evaluation. The patient has been followed up by neurology, psychiatry and hospitalists. REVIEW OF SYSTEMS Review of systems negative except for what is mentioned in HPI. PAST MEDICAL HISTORY 1. Insulin dependent diabetes mellitus. 2. Hypertension. 3. Glaucoma. 4. Bladder cancer, last chemotherapy on Monday. 5. History of prostate cancer status post radiation. 6. Hyperlipidemia. 7. COPD. 8. TIA. 9. PAD status post tstri-gpg-[id number] amputation. PAST SURGICAL HISTORY 1. Cholecystectomy. 2. 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 3. Back surgery. 4. CEA on the right side. MEDICATION Cardiac home medications: 1. Norvasc 10 mg p.o. daily. ALLERGIES MELL INHIBITORS. PHYSICAL EXAMINATION VITAL SIGNS: Temperature 98, respiratory rate 17, heart rate 90, blood pressure 167/74. O2 sat 95% on room air. GENERAL: Awake, alert, oriented x3, in no acute distress. NECK: No JVD or carotid bruits. HEART: Regular rate and rhythm. No murmurs, rubs or gallops. LUNGS: Clear to auscultation bilaterally. ABDOMEN: Benign. EXTREMITIES: Left aezyq-bhv-biii amputation. On the right there is no edema, diminished pulses. DATA CBC hemoglobin 9.2 trending up from 8.3, hematocrit 27 trending up from 24 with platelet count 314, INR 1.1. Chemistries sodium 140, potassium 3.8, BUN 15, creatinine 1.05. Troponin 0.05. In the urinalysis there is protein, there is glucose, ketones and blood. There is evidence of a UTI. Toxicology screen is negative. EKG shows sinus rhythm. surveillance monitor is sinus rhythm throughout, there is brief episodes of nonsustained SVT. Echocardiogram 02/07/2017, EF 50%, no wall motion abnormalities, no valvulopathies, no shunts. Carotid ultrasound done on 02/06/2017 that was an incomplete examination because the patient refused to have the exam. However, there is a question of occlusion of the right internal carotid artery. ASSESSMENT/PLAN 76-year-old male with above history and findings, consulted to cardiology with questionable syncope. He has no recollection of events and it is not clear if it was syncope or was due to a change in mental status, question metabolic encephalopathy. He has no structural heart disease. He has a normal echocardiogram as well as an EKG. Thus, at this point I would recommend to continue manager monitoring, get a Holter monitor upon discharge. Repeat the carotid ultrasound. Keep hydrated. Follow up with Dr. Wolf upon discharge. Thank you for the opportunity to take part in the care of this patient. Will be available on a p.r.n. basis for any other questions or concerns. MD SERJIO Vivar/TLSerenity /11:20 AM /11:41 AM KAMERON
--- NOTE | 2017-02-16 13:27 | PD.ONC.PN ---
Subjective Subjective Remarks Afebrile "I'm mentally coming back" Reports he has been having a difficult time putting on his prosthesis Objective Data Date Time Temp Pulse Resp B/P (MAP) Pulse Ox O2 Delivery O2 Flow Rate FiO2 02/16/17 12:00 97.2 86 17 181/79 (113) 94 02/16/17 08:00 98.3 90 17 167/74 (105) 95 02/16/17 04:00 98.1 96 16 170/79 (109) 97 02/16/17 00:00 97.0 92 17 171/72 (105) 96 02/15/17 20:00 98.1 95 17 174/78 (110) 95 02/15/17 20:00 96 02/15/17 16:00 96.1 87 16 115/35 (61) 96 02/15/17 16:00 92 02/16/17 02/16/17 02/16/17 07:00 15:00 23:00 Intake Total 360 ml Output Total 350 ml Balance 10 ml Result Diagram: 02/15/17 1000 02/15/17 1000 Administered Medications Medications (Trade) Dose Ordered Sig/Myrna Route PRN Reason Start Time Stop Time Status Last Admin Dose Admin Sodium Chloride (NS Flush) 2 ml BID IV FLUSH 02/14/17 09:00 02/14/17 20:24 Sodium Chloride 1,000 ml @ 75 mls/hr [id number] IV 02/14/17 08:00 02/16/17 13:16 Amlodipine Besylate (Norvasc) 10 mg DAILY PO 02/15/17 09:00 02/16/17 08:40 Dorzolamide HCl (Trusopt 2% Opth Soln) 1 drop BID RIGHT EYE 02/14/17 21:00 02/16/17 08:35 Latanoprost (Xalatan 0.005% Opth Soln) 1 drop HS RIGHT EYE 02/14/17 21:00 02/15/17 20:18 Thiamine HCl (Vitamin B1) 100 mg DAILY PO 02/15/17 09:00 02/16/17 08:31 Multivitamins/ Minerals Therapeutic (Theragran M Tab) 2 tab DAILY PO 02/15/17 09:00 02/16/17 08:31 Insulin Aspart (NovoLOG SUPPLEMENTAL SCALE) 1 ACHS SLIDING SCALE SQ 02/14/17 12:00 12/6/17 22:38 Insulin Detemir (Levemir Inj) 25 units DAILY SQ 02/15/17 09:00 02/16/17 08:39 Insulin Detemir (Levemir Inj) 30 units HS SQ 02/14/17 21:00 02/15/17 22:39 Aspirin (Ecotrin Ec) 81 mg DAILY PO 02/15/17 09:00 02/16/17 08:31 Atorvastatin Calcium (Lipitor) 20 mg DAILY PO 02/16/17 10:45 02/16/17 11:28 Objective Remarks GENERAL: Elderly male sitting up on side of bed eating lunch SKIN: Warm and dry. HEAD: Normocephalic. EYES: No injection or drainage. NECK: Supple, trachea midline. CARDIOVASCULAR: +S1/S2 RESPIRATORY: Breath sounds equal bilaterally. No accessory muscle use. GASTROINTESTINAL: Abdomen soft, non-tender, nondistended. EXTREMITIES: No cyanosis. NEUROLOGICAL: Awake and alert, normal speech. Oriented x3. Assessment/Plan Problem List: (1) bladder cancer July 2016, high-grade muscle invasive urothelial cancer Plan: 02/16: Continue PT. Will likely need rehab. OK for discharge from oncology standpoint. Followup in clinic. -- Diagnosed in August 2016 with urinary bladder cancer after he presented with hematuria -- Status post TURBT on September 01 -- Pathology showed T2 high-grade muscle invasive urothelial bladder cancer -- He has just completed 4 cycles of neoadjuvant chemotherapy with cisplatin and Gemzar from October to January 2017 -- Patient will need radical cystectomy (2) confusion/hallucinations, new onset, ?delirium, without apparent infection Plan: --neurology following --improved somewhat today, 02/14 --await MRI brain Assessment 76y/o male with bladder cancer, admitted with altered mental status. Attending Statement The exam, history, and the medical decision-making described in the above note were completed with the assistance of the mid-level provider. I reviewed and agree with the findings presented. I attest that I had a [id number] encounter with the patient on the same day, and personally performed and documented my assessment and findings in the medical record. LATE ENTRY. Pt was seen yesterday. feels better. Too Weak to walk . needs rehab Breonna García Feb 16, 2017 13:27 Denny Dumont MD Feb 17, 2017 17:17
[2017-02-16] MEDS ORDERED: cloNIDine HCL 0.1 MG TAB PO PRN (14:00)
[2017-02-16] MEDS: METOPROLOL TARTRATE 25 MG TAB PO SCH ×2 (14:43→22:21)
[2017-02-16] MEDS ORDERED: METO25TA3 PO (16:47)
[2017-02-16] MEDS ORDERED: ATOR20TA15 PO (16:47)
[2017-02-16] MEDS ORDERED: ECASA81 PO (16:47)
[2017-02-16] MEDS ORDERED: hydrALAZINE HCL 25 MG TAB PO ONE (18:15)
[2017-02-16 19:39] LABS: ALT (GPT) 28 U/L (12-78); ANION GAP 7 MEQ/L (5-15); AST (GOT) 44 U/L (15-37); BICARBONATE 24.2 MEQ/L (21.0-32.0); BLOOD UREA NITROGEN 19 MG/DL (7-18); CHLORIDE 110 MEQ/L (98-107); GLOMERULAR FILTRATION RATE 61 ML/MIN (>89); SODIUM (NA) 141 MEQ/L (136-145)
[2017-02-16 19:42] LABS: ALKALINE PHOSPHATASE 62 U/L (45-117); TOTAL BILIRUBIN ADULT 0.1 MG/DL (0.2-1.0)
[2017-02-16] MEDS: LATANOPROST 0.005% OPHT SOLN 2.5 ML BTL RIGHT EYE SCH (22:18)
[2017-02-17] VITALS (7 sets, daily range): BP systolic 132–176; BP diastolic 65–80; PULSE 67–86; RESP 17–20; TEMP 95.3–98.3; O2SAT 93–95
[2017-02-17] MEDS: SODIUM CHLOR 0.9% 1000 ML INJ 1,000 ML IV SCH (02:40)
[2017-02-17] MEDS: SODIUM CHLORIDE 0.9% FLUSH 10 ML FLUSH IV FLUSH SCH ×2 (07:37→22:47)
[2017-02-17] MEDS: INSULIN ASPART SUPPLEMENTAL SCALE SQ SCH ×4 (07:37→21:00)
[2017-02-17] MEDS: MULTIVITAMINS/MINERALS THERAPEUTIC TAB PO SCH (08:47)
[2017-02-17] MEDS: ATORVASTATIN 20 MG TAB PO SCH (08:48)
[2017-02-17] MEDS: ASPIRIN EC 81 MG TABEC PO SCH (08:48)
[2017-02-17] MEDS: THIAMINE HCL 100 MG TAB PO SCH (08:49)
[2017-02-17] MEDS: METOPROLOL TARTRATE 25 MG TAB PO SCH (08:49)
[2017-02-17] MEDS: DORZOLAMIDE 2% OPTH SOLN 200 DROP/10 ML BTLO RIGHT EYE SCH ×2 (08:50→22:48)
[2017-02-17] MEDS: INSULIN DETEMIR 100 UNITS/ML VIAL SQ SCH ×2 (09:00→21:00)
--- NOTE | 2017-02-17 10:48 | PD.ONC.PN ---
Subjective Subjective Remarks Afebrile overnight. Patient confused and possibly hallucinating today. He stares off into the distance and grasps at objects that are not there. He tells me he is grabbing the cups. He is not able to tell me the year (tells me its 8). When I ask were he is he tells me, "in the container." Objective Data Date Time Temp Pulse Resp B/P (MAP) Pulse Ox O2 Delivery O2 Flow Rate FiO2 02/17/17 08:00 96.9 75 17 176/79 (111) 93 02/17/17 04:20 98.3 86 19 140/70 (93) 94 02/17/17 00:50 98.1 68 17 132/65 (87) 94 02/16/17 22:21 97.9 74 20 177/78 (111) 96 02/16/17 18:33 163/74 (103) 02/16/17 16:00 98.7 93 17 192/89 (123) 96 02/16/17 12:00 97.2 86 17 181/79 (113) 94 02/17/17 02/17/17 02/17/17 07:00 15:00 23:00 Intake Total 1278 ml Output Total 800 ml Balance 478 ml Result Diagram: 02/15/17 1000 02/16/17 1905 Laboratory Results Laboratory Tests Test 02/16/17 19:05 Blood Urea Nitrogen 19 MG/DL Creatinine 1.16 MG/DL Random Glucose 144 MG/DL Total Protein 4.9 GM/DL Albumin 1.7 GM/DL Calcium Level 7.7 MG/DL Alkaline Phosphatase 62 U/L Aspartate Amino Transf (AST/SGOT) 44 U/L Alanine Aminotransferase (ALT/SGPT) 28 U/L Total Bilirubin 0.1 MG/DL Sodium Level 141 MEQ/L Potassium Level 4.0 MEQ/L Chloride Level 110 MEQ/L Carbon Dioxide Level 24.2 MEQ/L Anion Gap 7 MEQ/L Estimat Glomerular Filtration Rate 61 ML/MIN Administered Medications Medications (Trade) Dose Ordered Sig/Myrna Route PRN Reason Start Time Stop Time Status Last Admin Dose Admin Sodium Chloride (NS Flush) 2 ml BID IV FLUSH 02/14/17 09:00 02/14/17 20:24 Sodium Chloride 1,000 ml @ 75 mls/hr [id number] IV 02/14/17 08:00 12/8/17 02:40 Amlodipine Besylate (Norvasc) 10 mg DAILY PO 02/15/17 09:00 02/17/17 08:49 Dorzolamide HCl (Trusopt 2% Opth Soln) 1 drop BID RIGHT EYE 02/14/17 21:00 02/17/17 08:50 Latanoprost (Xalatan 0.005% Opth Soln) 1 drop HS RIGHT EYE 02/14/17 21:00 02/16/17 22:18 Thiamine HCl (Vitamin B1) 100 mg DAILY PO 02/15/17 09:00 02/17/17 08:49 Multivitamins/ Minerals Therapeutic (Theragran M Tab) 2 tab DAILY PO 02/15/17 09:00 02/17/17 08:47 Insulin Aspart (NovoLOG SUPPLEMENTAL SCALE) 1 ACHS SLIDING SCALE SQ 02/14/17 12:00 02/15/17 22:38 Insulin Detemir (Levemir Inj) 25 units DAILY SQ 02/15/17 09:00 02/16/17 08:39 Insulin Detemir (Levemir Inj) 30 units HS SQ 02/14/17 21:00 02/16/17 22:22 Aspirin (Ecotrin Ec) 81 mg DAILY PO 02/15/17 09:00 02/17/17 08:48 Atorvastatin Calcium (Lipitor) 20 mg DAILY PO 02/16/17 10:45 02/17/17 08:48 Metoprolol Tartrate (Lopressor) 25 mg Q12HR PO 02/16/17 14:30 02/17/17 08:49 Clonidine (Catapres) 0.1 mg Q6H PRN PO SBP> OR = 180, DBP> OR = 100 02/16/17 14:00 02/16/17 16:59 Objective Remarks GENERAL: chronically ill appearing male supine in bed, disheveled, confused SKIN: Warm and dry. HEAD: Normocephalic. EYES: No injection or drainage. NECK: Supple, trachea midline. CARDIOVASCULAR: Regular rate and rhythm RESPIRATORY: Breath sounds equal bilaterally. No accessory muscle use. GASTROINTESTINAL: Abdomen soft, non-tender, nondistended. EXTREMITIES: No cyanosis MUSCULOSKELETAL: Adequate muscle tone. NEUROLOGICAL: oriented to name only. moving extremities. Assessment/Plan Problem List: (1) bladder cancer July 2016, high-grade muscle invasive urothelial cancer Plan: 02/17: plan for outpatient follow up once current altered mental status improved -- Diagnosed in August 2016 with urinary bladder cancer after he presented with hematuria -- Status post TURBT on September 01 -- Pathology showed T2 high-grade muscle invasive urothelial bladder cancer -- He has just completed 4 cycles of neoadjuvant chemotherapy with cisplatin and Gemzar from October to January 2017 -- Patient will need radical cystectomy (2) confusion/hallucinations, new onset, ?delirium, without apparent infection Plan: --neurology signed off, 02/16, may need reconsult as patient remains confused. --MRI brain showed periventricular white matter changes and lacunar infarcts. Assessment 76y/o male with bladder cancer, admitted with altered mental status. Attending Statement The exam, history, and the medical decision-making described in the above note were completed with the assistance of the mid-level provider. I reviewed and agree with the findings presented. I attest that I had a [id number] encounter with the patient on the same day, and personally performed and documented my assessment and findings in the medical record. Confuse and hallucinating again. Risperdal resume. rehab Suha Logan Feb 17, 2017 10:48 Denny Dumont MD Feb 17, 2017 17:19
--- NOTE | 2017-02-17 13:04 | HHI.PR ---
Subjective Remarks Follow-up encephalopathy 02/17/17-patient seen and examined, + visual hallucinations, labile BP Objective Vitals Vital Signs Date Time Temp Pulse Resp B/P (MAP) Pulse Ox O2 Delivery O2 Flow Rate FiO2 02/17/17 08:00 96.9 75 17 176/79 (111) 93 02/17/17 04:20 98.3 86 19 140/70 (93) 94 02/17/17 00:50 98.1 68 17 132/65 (87) 94 02/16/17 22:21 97.9 74 20 177/78 (111) 96 02/16/17 18:33 163/74 (103) 02/16/17 16:00 98.7 93 17 192/89 (123) 96 I/O 02/16/17 02/16/17 02/16/17 02/17/17 02/17/17 02/17/17 07:00 15:00 23:00 07:00 15:00 23:00 Intake Total 360 ml 100 ml 600 ml 1278 ml Output Total 350 ml 425 ml 800 ml Balance 10 ml 100 ml 175 ml 478 ml Intake Oral 360 ml 600 ml IV Total 100 ml 1278 ml Output Urine Total 350 ml 425 ml 800 ml # Bowel Movements 0 0 Result Diagram: 02/15/17 1000 02/16/17 1905 Imaging Last Impressions Brain MRI 02/14/17 0000 Signed Impressions: Service Date/Time: Tuesday, February 14, 2017 08:51 - CONCLUSION: Periventricular white matter changes and lacunar infarcts, negative for inflammatory process. Correlation lumbar puncture with the benefit. Some inflammatory processes can be obscured by MRI.. Bennett Ibarra MD FACR Objective Remarks GENERAL: NAD SKIN: Warm and dry. HEAD: Normocephalic. EYES: No scleral icterus. No injection or drainage. NECK: Supple, trachea midline. No JVD or lymphadenopathy. CARDIOVASCULAR: Regular rate and rhythm without murmurs, gallops, or rubs. RESPIRATORY: Breath sounds equal bilaterally. No accessory muscle use. GASTROINTESTINAL: Abdomen soft, non-tender, nondistended. MUSCULOSKELETAL: No cyanosis, or edema. BACK: Nontender without obvious deformity. No CVA tenderness. A/P Problem List: (1) confusion/delirium (2) Unspecified psychosis ICD Code: F29 - Unspecified psychosis not due to a substance or known physiological condition (3) history of prostate cancer, s/p radiation (4) electrolyte (potassium and calcium) imbalances Assessment and Plan 76-year-old man with Encephalopathy - Initially thought to be psychiatric most likely metabolic. EEG was normal. CT scan of head was negative for any acute intracranial process. - Carotid ultrasound incomplete concerning for carotid stenosis obtain CTA, echocardiogram WNL . EEG normal. MRI did not show any inflammatory process. - Neurologist Dr. Garrido suspect metastatic vs infectious, - Infectious workup done in [facility] was negative. - Visual hallucination ;Start Risperdal 0.5 mg by mouth twice a day today . Patient was previously seen by psychiatry - Cardiology Consulted initial patient presentation with syncope, recommend outpatient Holter monitoring Hypertension, uncontrolled - on Norvasc 10mg daily - Increase metoprolol 50 mg by mouth twice a day, clonidine when necessary - Will give extra Lopressor 25 mg by mouth 1 now - Monitor BP trend Gen weakness - PT evaluate Hyperkalemia: - Resolved. Questionable pneumonia - Patient is asymptomatic. - CXR negative. DC ABX. Insulin-dependent diabetes mellitus a1c is 7.7 , uncontrolled DM - continue home insulin. Insulin sliding scale. Bladder cancer - Patient received his last chemotherapy ~2 weeks ago - Scheduled to be seen at [facility] for cystectomy - Oncologist is Dr. Dumont Anemia -H&H 8.9/.1 -Stable. Patient at baseline. DVT ppx. Early ambulation. Jeffy Fagan MD Feb 17, 2017 13:04
[2017-02-17] MEDS ORDERED: METOPROLOL TARTRATE 25 MG TAB PO ONE (15:00)
[2017-02-17] MEDS: risperiDONE 0.5 MG TAB PO ONE ×2 (19:03→19:28)
[2017-02-17] MEDS: METOPROLOL TARTRATE 50 MG TAB PO SCH (22:46)
[2017-02-17] MEDS: risperiDONE 0.5 MG TAB PO SCH (22:46)
[2017-02-17] MEDS: LATANOPROST 0.005% OPHT SOLN 2.5 ML BTL RIGHT EYE SCH (22:48)
[2017-02-18] VITALS (7 sets, daily range): BP systolic 159–194; BP diastolic 70–88; PULSE 69–82; RESP 16–20; TEMP 95.8–97.7; O2SAT 91–94
[2017-02-18] MEDS: INSULIN ASPART SUPPLEMENTAL SCALE SQ SCH ×4 (08:00→22:42)
[2017-02-18] MEDS: INSULIN DETEMIR 100 UNITS/ML VIAL SQ SCH ×2 (08:28→21:05)
[2017-02-18] MEDS: ATORVASTATIN 20 MG TAB PO SCH (10:00)
[2017-02-18] MEDS: METOPROLOL TARTRATE 50 MG TAB PO SCH ×2 (10:00→22:19)
[2017-02-18] MEDS: THIAMINE HCL 100 MG TAB PO SCH (10:00)
[2017-02-18] MEDS: risperiDONE 0.5 MG TAB PO SCH ×2 (10:00→22:20)
[2017-02-18] MEDS: ASPIRIN EC 81 MG TABEC PO SCH (10:00)
[2017-02-18] MEDS: MULTIVITAMINS/MINERALS THERAPEUTIC TAB PO SCH (10:00)
[2017-02-18] MEDS: SODIUM CHLORIDE 0.9% FLUSH 10 ML FLUSH IV FLUSH SCH ×2 (10:01→21:00)
[2017-02-18] MEDS: DORZOLAMIDE 2% OPTH SOLN 200 DROP/10 ML BTLO RIGHT EYE SCH ×2 (10:18→22:21)
--- NOTE | 2017-02-18 11:01 | HHI.PR ---
Subjective Remarks Follow-up encephalopathy 02/17/17-patient seen and examined, + visual hallucinations, labile BP 02/18/17-patient seen and examined, confused but stable. Low blood glucose however patient asymptomatic Objective Vitals Vital Signs Date Time Temp Pulse Resp B/P (MAP) Pulse Ox O2 Delivery O2 Flow Rate FiO2 02/18/17 08:00 95.8 76 20 194/84 (120) 93 187/83 (117) 02/18/17 04:00 97.4 75 20 177/77 (110) 94 02/18/17 00:13 96.9 76 18 170/88 (115) 93 02/17/17 20:51 97.2 68 20 145/69 (94) 95 02/17/17 16:49 155/74 (101) 02/17/17 16:00 95.3 75 17 152/70 (97) 95 02/17/17 12:00 96.4 67 17 175/80 (111) 94 I/O 02/17/17 02/17/17 02/17/17 02/18/17 02/18/17 02/18/17 07:00 15:00 23:00 07:00 15:00 23:00 Intake Total 1278 ml 900 ml 222 ml Output Total 800 ml Balance 478 ml 900 ml 222 ml Intake Oral 222 ml IV Total 1278 ml 900 ml Output Urine Total 800 ml Bladder Scan Volume Amount 43 ml # Voids 0 2 # Bowel Movements 0 0 0 Result Diagram: 02/15/17 1000 02/16/17 1905 Imaging Last Impressions Brain MRI 02/14/17 0000 Signed Impressions: Service Date/Time: Tuesday, February 14, 2017 08:51 - CONCLUSION: Periventricular white matter changes and lacunar infarcts, negative for inflammatory process. Correlation lumbar puncture with the benefit. Some inflammatory processes can be obscured by MRI.. Bennett Ibarra MD FACR Objective Remarks GENERAL: NAD SKIN: Warm and dry. HEAD: Normocephalic. EYES: No scleral icterus. No injection or drainage. NECK: Supple, trachea midline. No JVD or lymphadenopathy. CARDIOVASCULAR: Regular rate and rhythm without murmurs, gallops, or rubs. RESPIRATORY: Breath sounds equal bilaterally. No accessory muscle use. GASTROINTESTINAL: Abdomen soft, non-tender, nondistended. MUSCULOSKELETAL: No cyanosis, or edema. BACK: Nontender without obvious deformity. No CVA tenderness. A/P Problem List: (1) confusion/delirium (2) Unspecified psychosis ICD Code: F29 - Unspecified psychosis not due to a substance or known physiological condition (3) history of prostate cancer, s/p radiation (4) electrolyte (potassium and calcium) imbalances Assessment and Plan 76-year-old man with Encephalopathy - Initially thought to be psychiatric most likely metabolic. EEG was normal. CT scan of head was negative for any acute intracranial process. - Carotid ultrasound incomplete concerning for carotid stenosis obtain CTA, echocardiogram WNL . EEG normal. MRI did not show any inflammatory process. - Neurologist Dr. Garrido suspect metastatic vs infectious, - Infectious workup done in [facility] was negative. - Visual hallucination ;continue Risperdal 0.5 mg by mouth twice a day . Patient was previously seen by psychiatry - Cardiology Consulted initial patient presentation with syncope, recommend outpatient Holter monitoring Hypertension, uncontrolled - on Norvasc 10mg daily - continue metoprolol 50 mg by mouth twice a day, clonidine when necessary - Monitor BP trend Gen weakness - PT evaluate Hyperkalemia: - Resolved. Questionable pneumonia - Patient is asymptomatic. - CXR negative. DC ABX. Insulin-dependent diabetes mellitus a1c is 7.7 , uncontrolled DM - continue home insulin. Insulin sliding scale. Bladder cancer - Patient received his last chemotherapy ~2 weeks ago - Scheduled to be seen at [facility] for cystectomy - Oncologist is Dr. Dumont Anemia -H&H 8.9/26.1 -Stable. Patient at baseline. DVT ppx. Early ambulation. Jeffy Fagan MD Feb 18, 2017 11:01
--- NOTE | 2017-02-18 11:04 | HHI.DS ---
Discharge Summary Admission Date Feb 14, 2017 at 00:05 Discharge Date: Feb 18, 2017 Admitting Diagnosis (1) confusion/delirium (2) Unspecified psychosis ICD Code: F29 - Unspecified psychosis not due to a substance or known physiological condition (3) history of prostate cancer, s/p radiation (4) electrolyte (potassium and calcium) imbalances Procedures none Brief History - From Admission 76-year-old male with insulin-dependent diabetes mellitus, hypertension and bladder cancer who presented with altered mental status thought to be psychiatric in nature so was initially admitted to the med psych unit. Patient mental status did not improve and psychiatrist did not think that this was psychiatric in nature and thought this was more metabolic so he was transferred to the medical floor. During my interview with the patient he had no complaints. He was able to come his name, that he was in the hospital, and location. He could not tell me the city. He was also able to tell me who the president and some current events. Patient had no complaints and stated that he has no clue what is wrong with him. He stated that he does feel weak. All other reviewed of systems reviewed and negative. CBC/BMP: 02/15/17 1000 02/16/17 1905 Significant Findings Laboratory Tests Test 02/16/17 19:05 Blood Urea Nitrogen 19 MG/DL (7-18) Random Glucose 144 MG/DL (74-106) Total Protein 4.9 GM/DL (6.4-8.2) Albumin 1.7 GM/DL (3.4-5.0) Calcium Level 7.7 MG/DL (8.5-10.1) Aspartate Amino Transf (AST/SGOT) 44 U/L (15-37) Total Bilirubin 0.1 MG/DL (0.2-1.0) Chloride Level 110 MEQ/L (98-107) Estimat Glomerular Filtration Rate 61 ML/MIN (>89) Imaging Last Impressions Brain MRI 02/14/17 0000 Signed Impressions: Service Date/Time: Tuesday, February 14, 2017 08:51 - CONCLUSION: Periventricular white matter changes and lacunar infarcts, negative for inflammatory process. Correlation lumbar puncture with the benefit. Some inflammatory processes can be obscured by MRI.. Bennett Ibarra MD FACR PE at Discharge GENERAL: NAD SKIN: Warm and dry. HEAD: Normocephalic. EYES: No scleral icterus. No injection or drainage. NECK: Supple, trachea midline. No JVD or lymphadenopathy. CARDIOVASCULAR: Regular rate and rhythm without murmurs, gallops, or rubs. RESPIRATORY: Breath sounds equal bilaterally. No accessory muscle use. GASTROINTESTINAL: Abdomen soft, non-tender, nondistended. MUSCULOSKELETAL: No cyanosis, or edema. BACK: Nontender without obvious deformity. No CVA tenderness. Hospital Course Patient initially admitted secondary to encephalopathy, and underwent EEG which was read as normal. Neurology as well as cardiology was consulted due to syncope. Patient had infectious workup performed which was negative. Secondary to visual hallucination, patient was started on Risperdal 0.5 mg by mouth twice a day. Secondary to labile BP, oral antihypertensive medications were adjusted accordingly and patient was started on Norvasc and Lopressor was increased to 50 mg twice a day. He was placed on a sliding scale and continued on basal insulin with holding parameters. He was treated for pneumonia and completed by mouth antibiotic. Oncology was consulted secondary to patient history bladder cancer and was followed throughout hospitalization. PT was consulted. DVT and GI prophylaxis were provided. Pt Condition on Discharge: Stable Discharge Disposition: Discharge to SNF Discharge Time: > 30 minutes Discharge Instructions DIET: Follow Instructions for: Diabetic Diet Follow up Referrals: Cardiology with Torres Rivera MD PCP Follow-up - 1 Week New Medications: Aspirin DR (Aspirin DR) 81 Mg Tabdr 81 MG PO DAILY for Blood Clot Prevention, #30 TAB Atorvastatin (Atorvastatin) 20 Mg Tab 20 MG PO DAILY for Blood Pressure Management, #30 TAB Metoprolol Tartrate (Metoprolol Tartrate) 25 Mg Tab 25 MG PO Q12HR for Blood Pressure Management, #60 TAB Metoprolol Tartrate (Lopressor) 50 Mg Tab 50 MG PO Q12HR for Blood Pressure Management, #60 TAB 11 Refills Continued Medications: Amlodipine (Amlodipine) 10 Mg Tab 10 MG PO DAILY for Blood Pressure Management, TAB 0 Refills Dorzolamide Opth Drops (Dorzolamide Opth Drops) 2% Soln 1 DROP RIGHT EYE BID for Glaucoma, #1 BOTTLE 0 Refills Insulin Glargine Inj (Lantus Inj) 1,000 Unit/10 Ml Vial 25 UNITS SQ DAILY for Blood Sugar Management, VIAL 0 Refills Insulin Glargine Inj (Lantus Inj) 1,000 Unit/10 Ml Vial 30 UNITS SQ HS for Blood Sugar Management, VIAL 0 Refills Latanoprost Opth Drops (Latanoprost Opth Drops) 0.005% Drops 1 DROP RIGHT EYE HS for Glaucoma, #2.5 ML 0 Refills Refrigerate until opened. Multiple Vitamins W/ Minerals (Preservision Areds) 1 Tab 2 TAB PO DAILY for Nutritional Supplement, TAB 0 Refills Risperidone (Risperdal) 0.5 Mg Tab 0.5 MG PO Q12HR for anxiety/depression , #60 TAB Thiamine HCl (Gnp Vitamin B-1) 100 Mg Tab 100 MG PO DAILY for Nutritional Supplement, #30 TAB Jeffy Fagan MD Feb 18, 2017 11:04
[2017-02-18] MEDS ORDERED: METO-309 PO (11:06)
--- NOTE | 2017-02-18 11:14 | PD.ONC.PN ---
Subjective Subjective Remarks Afebrile overnight. Patient resting in bed on left side. Remains confused. No overnight events per nurse. Objective Data Date Time Temp Pulse Resp B/P (MAP) Pulse Ox O2 Delivery O2 Flow Rate FiO2 02/18/17 08:00 95.8 76 20 194/84 (120) 93 187/83 (117) 02/18/17 04:00 97.4 75 20 177/77 (110) 94 02/18/17 00:13 96.9 76 18 170/88 (115) 93 02/17/17 20:51 97.2 68 20 145/69 (94) 95 02/17/17 16:49 155/74 (101) 02/17/17 16:00 95.3 75 17 152/70 (97) 95 02/17/17 12:00 96.4 67 17 175/80 (111) 94 Result Diagram: 02/15/17 1000 02/16/17 1905 Administered Medications Medications (Trade) Dose Ordered Sig/Myrna Route PRN Reason Start Time Stop Time Status Last Admin Dose Admin Sodium Chloride (NS Flush) 2 ml BID IV FLUSH 02/14/17 09:00 02/18/17 10:01 Amlodipine Besylate (Norvasc) 10 mg DAILY PO 02/15/17 09:00 02/18/17 10:00 Dorzolamide HCl (Trusopt 2% Opth Soln) 1 drop BID RIGHT EYE 02/14/17 21:00 02/18/17 10:18 Latanoprost (Xalatan 0.005% Opth Soln) 1 drop HS RIGHT EYE 02/14/17 21:00 02/17/17 22:48 Thiamine HCl (Vitamin B1) 100 mg DAILY PO 02/15/17 09:00 02/18/17 10:00 Multivitamins/ Minerals Therapeutic (Theragran M Tab) 2 tab DAILY PO 02/15/17 09:00 02/18/17 10:00 Insulin Aspart (NovoLOG SUPPLEMENTAL SCALE) 1 ACHS SLIDING SCALE SQ 02/14/17 12:00 02/15/17 22:38 Insulin Detemir (Levemir Inj) 25 units DAILY SQ 02/15/17 09:00 02/16/17 08:39 Insulin Detemir (Levemir Inj) 30 units HS SQ 02/14/17 21:00 02/16/17 22:22 Aspirin (Ecotrin Ec) 81 mg DAILY PO 02/15/17 09:00 02/18/17 10:00 Atorvastatin Calcium (Lipitor) 20 mg DAILY PO 02/16/17 10:45 02/18/17 10:00 Clonidine (Catapres) 0.1 mg Q6H PRN PO SBP> OR = 180, DBP> OR = 100 02/16/17 14:00 02/16/17 16:59 Metoprolol Tartrate (Lopressor) 50 mg Q12HR PO 02/17/17 21:00 02/18/17 10:00 Risperidone (risperDAL) 0.5 mg BID PO 02/17/17 21:00 02/18/17 10:00 Objective Remarks GENERAL: Elderly male sitting up in bed in nad. SKIN: Warm and dry. HEAD: Normocephalic. EYES: No injection or drainage. NECK: Supple, trachea midline. CARDIOVASCULAR: Regular rate and rhythm RESPIRATORY: Breath sounds equal bilaterally. No accessory muscle use. GASTROINTESTINAL: Abdomen soft, non-tender, nondistended. EXTREMITIES: No cyanosis NEUROLOGICAL: awake and alert, normal speech. moving all extremities. 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 I have asked the nurse to call Dr. Garrido and update him on the patient's continued AMS. We may need to reconsult neurology. -- Diagnosed in August 2016 with urinary bladder cancer after he presented with hematuria -- Status post TURBT on September 01 -- Pathology showed T2 high-grade muscle invasive urothelial bladder cancer -- He has just completed 4 cycles of neoadjuvant chemotherapy with cisplatin and Gemzar from October to January 2017 -- Patient will need radical cystectomy (2) confusion/hallucinations, new onset, ?delirium, without apparent infection Plan: --neurology signed off, 02/16, may need reconsult as patient remains confused. --MRI brain showed periventricular white matter changes and lacunar infarcts. Assessment 76y/o male with bladder cancer, admitted with altered mental status. Attending Statement The exam, history, and the medical decision-making described in the above note were completed with the assistance of the mid-level provider. I reviewed and agree with the findings presented. I attest that I had a [id number] encounter with the patient on the same day, and personally performed and documented my assessment and findings in the medical record. Pt is very confused. unable to be aroused. d/w RN reconsult neuro . He is no shape to go to SNF. Suha Logan Feb 18, 2017 11:14 Denny Dumont MD Feb 18, 2017 18:11
[2017-02-18 12:16] LABS: AUTOMATED NEUTROPHIL # 8.3 TH/MM3 (1.8-7.7); BASOPHIL # 0.1 TH/MM3 (0-0.2); BASOPHIL % 0.6 % (0.0-2.0); EOSINOPHIL # 0.1 TH/MM3 (0-0.4); EOSINOPHIL % 0.7 % (0.0-4.0); HEMATOCRIT 27.6 % (39.0-51.0); HEMO FLAGS DIFF FINAL; LYMPHOCYTE # 1.4 TH/MM3 (1.0-4.8); MEAN CELL VOLUME 90.5 FL (80.0-100.0); MEAN CORPUSCULAR HEMOGLOBIN 29.5 PG (27.0-34.0); MEAN CORPUSCULAR HGB CONC 32.6 % (32.0-36.0); NEUT % 71.7 % (16.0-70.0); PLATELET COUNT 286 TH/MM3 (150-450); RED BLOOD COUNT 3.05 MIL/MM3 (4.50-5.90); RED CELL DISTRIBUTION WIDTH 18.5 % (11.6-17.2); WHITE BLOOD COUNT 11.6 TH/MM3 (4.0-11.0)
[2017-02-18 12:43] LABS: BICARBONATE 22.6 MEQ/L (21.0-32.0); POTASSIUM 4.7 MEQ/L (3.5-5.1)
[2017-02-18] MEDS ORDERED: SOD PHOSPHATE/SOD BIPHOSPHATE (ADULT) ENEMA 133ML RECTAL ONE (14:15)
[2017-02-18 17:27] LABS: BLOOD, URINE TRACE (NEG); COMMENT (UR) CULT NOT INDICATED; CULTURE IF INDICATED CULT NOT INDICATED; GLUCOSE,URINE 150 mg/dL (NEG); GRANULAR CAST, URINE 6 /lpf; HYALINE CAST, URINE 3 /lpf (RARE); KETONE, URINE 10 mg/dL (NEG); NITRITE,URINE NEG (NEG); PH, URINE 6.5 (5.0-8.5); URINE COLOR YELLOW (YELLW/STRAW)
[2017-02-18] MEDS: LATANOPROST 0.005% OPHT SOLN 2.5 ML BTL RIGHT EYE SCH (22:21)
[2017-02-19] VITALS: BP 162/79; PULSE 82; RESP 18; TEMP 96.6; O2SAT 95
[2017-02-19 00:50] VITALS: PULSE 74
[2017-02-19 03:35] VITALS: BP 158/71; PULSE 63; RESP 18; TEMP 97.1; O2SAT 97
[2017-02-19 08:00] VITALS: BP 151/69; PULSE 62; RESP 18; TEMP 96.5; O2SAT 92
[2017-02-19] MEDS: INSULIN ASPART SUPPLEMENTAL SCALE SQ SCH ×3 (08:00→17:00)
[2017-02-19] MEDS: METOPROLOL TARTRATE 50 MG TAB PO SCH (08:30)
[2017-02-19] MEDS: ASPIRIN EC 81 MG TABEC PO SCH (08:30)
[2017-02-19] MEDS: THIAMINE HCL 100 MG TAB PO SCH (08:30)
[2017-02-19] MEDS: MULTIVITAMINS/MINERALS THERAPEUTIC TAB PO SCH (08:30)
[2017-02-19] MEDS: risperiDONE 0.5 MG TAB PO SCH (08:30)
[2017-02-19] MEDS: INSULIN DETEMIR 100 UNITS/ML VIAL SQ SCH (08:31)
[2017-02-19] MEDS: ATORVASTATIN 20 MG TAB PO SCH (08:31)
[2017-02-19] MEDS: DORZOLAMIDE 2% OPTH SOLN 200 DROP/10 ML BTLO RIGHT EYE SCH (08:31)
[2017-02-19] MEDS: SODIUM CHLORIDE 0.9% FLUSH 10 ML FLUSH IV FLUSH SCH (08:32)
--- NOTE | 2017-02-19 09:50 | HHI.PR ---
Subjective Remarks Follow-up encephalopathy 02/17/17-patient seen and examined, + visual hallucinations, labile BP 02/18/17-patient seen and examined, confused but stable. Low blood glucose however patient asymptomatic 02/19/17-patient seen and examined, much more alert and oriented to self and place. Taking by mouth without any competition nausea and vomiting. Repeat UA Objective Vitals Vital Signs Date Time Temp Pulse Resp B/P (MAP) Pulse Ox O2 Delivery O2 Flow Rate FiO2 02/19/17 08:00 96.5 62 18 151/69 (96) 92 02/19/17 03:35 97.1 63 18 158/71 (100) 97 02/19/17 00:50 74 02/19/17 00:00 96.6 82 18 162/79 (106) 95 02/18/17 20:00 96.7 76 18 159/70 (99) 94 02/18/17 16:00 96.6 69 16 172/71 (104) 91 02/18/17 12:00 97.7 82 18 175/79 (111) 92 02/18/17 11:19 175/79 (111) I/O 02/18/17 02/18/17 02/18/17 02/19/17 02/19/17 02/19/17 07:00 15:00 23:00 07:00 15:00 23:00 Intake Total 600 ml 0 ml Output Total 250 ml Balance 350 ml 0 ml Intake Oral 600 ml 0 ml Output Urine Total 250 ml Bladder Scan Volume Amount 346 ml # Voids 2 0 # Bowel Movements 0 0 Result Diagram: 02/18/17 1200 02/18/17 1200 Objective Remarks GENERAL: NAD SKIN: Warm and dry. HEAD: Normocephalic. EYES: No scleral icterus. No injection or drainage. NECK: Supple, trachea midline. No JVD or lymphadenopathy. CARDIOVASCULAR: Regular rate and rhythm without murmurs, gallops, or rubs. RESPIRATORY: Breath sounds equal bilaterally. No accessory muscle use. GASTROINTESTINAL: Abdomen soft, non-tender, nondistended. MUSCULOSKELETAL: No cyanosis, or edema. BACK: Nontender without obvious deformity. No CVA tenderness. 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 EEG was normal. CT scan of head was negative for any acute intracranial process. - Carotid ultrasound incomplete concerning for carotid stenosis obtain CTA, echocardiogram WNL . EEG normal. MRI did not show any inflammatory process. - Neurologist Dr. Garrido suspect metastatic vs infectious, - Infectious workup done in [facility] was negative. - Visual hallucination ;continue Risperdal 0.5 mg by mouth twice a day . Patient was previously seen by psychiatry - Cardiology Consulted initial patient presentation with syncope, recommend outpatient Holter monitoring Hypertension, uncontrolled - on Norvasc 10mg daily - continue metoprolol 50 mg by mouth twice a day, clonidine when necessary - Monitor BP trend Gen weakness - PT evaluate Hyperkalemia: - Resolved. Questionable pneumonia - Patient is asymptomatic. - CXR negative. DC ABX. Insulin-dependent diabetes mellitus a1c is 7.7 , uncontrolled DM - continue home insulin. Insulin sliding scale. Bladder cancer - Patient received his last chemotherapy ~2 weeks ago - Scheduled to be seen at [facility] for cystectomy - Oncologist is Dr. Dumont Anemia -H&H 8.9/26.1 -Stable. Patient at baseline. DVT ppx. Early ambulation. Jeffy Fagan MD Feb 19, 2017 09:49
[2017-02-19 12:00] VITALS: BP 172/74; PULSE 65; RESP 18; TEMP 97.8; O2SAT 92
--- NOTE | 2017-02-19 13:31 | HM ---
Date Performed: 02/17/2017 Time Performed: 16:57:00 HOOKUP DATE: 02/17/17 04:57:00 PM Fri ANALYSIS START TIME: 02/17/2017 5:02:00 PM ANALYSIS END TIME: 02/18/2017 3:48:59 PM PATIENT AGE: 76 PATIENT HEIGHT PATIENT WEIGHT DRUG LIST: room # [id number] PATIENT DIAGNOSIS: AMS TEST NARRATIVE: The patient's average heart rate was 74 BPM. No episodes of tachycardia wer e noted. No episodes of bradycardia were noted. No pauses exceeding 2.0 seconds were noted. 67 ventricular ectopics, which represented < 1% of the total beat count, were noted. The highest priscila tricular ectopic frequency occurred from 10:00 AM to 11:00 AM Sat. During this time 14 VE(s) occurre d. Ventricular ectopics were observed as 67 isolated beat(s) only. No couplets or runs were noted. 14 supraventricular ectopics, which represented < 1% of the total beat count, were noted. The hi ghest supraventricular ectopic frequency occurred from 06:00 PM to 07:00 PM Fri. During this time 5 SVE(s) occurred. Multiple episodes of ST depression (defined as -1.0 mm or more) were noted in c hannel 1. The maximum depression of -1.8 mm occurred at 06:35:09 PM Fri. No episodes of ST depressi on (defined as -1.0 mm or more) were noted in channel 2. No episodes of ST depression (defined as -1 .0 mm or more) were noted in channel 3. TEST INTERPRETATION: Patient has one 3-beat run of PACs. At 0741 am, patient had what appears to be either sinus tachycardia with a rate of around 115-120 with slight variation rate, which then has a slightly more premature beat and then the heart rate goes down to around 95. This may have been a run of PACs. It does not really appear to be atrial fibrillation as there are P waves in front of it. No other significant atrial ectopy is seen and no prolonged pauses are present. No heart block is pr esent. There is very little ventricular ectopy present. Overall, this patient may have a brief run of paroxysmal supraventricular rhythm with a rate of 120 versus sinus tachycardia with PACs and a slowi ng of the heart rate after the PAC. No complex atrial arrhythmias are seen otherwise and no heart blo ck present. No patient diary included. Signed by : Sonu Guan
[2017-02-19 16:00] VITALS: BP 163/72; PULSE 68; RESP 18; TEMP 97.5; O2SAT 97
== END 2017-02-19 17:42 | DRG 72 ==
LOC: N07B 00:05
PROVIDERS: ADMIT Hospitalist; ATTEND Hospitalist
DX: G93.41 Metabolic encephalopathy (principal); E11.51 Type 2 diabetes mellitus with diabetic peripheral angiopathy without gangrene; E11.649 Type 2 diabetes mellitus with hypoglycemia without coma; D64.81 Anemia due to antineoplastic chemotherapy; E11.65 Type 2 diabetes mellitus with hyperglycemia; C67.9 Malignant neoplasm of bladder, unspecified; T45.1X5A Adverse effect of antineoplastic and immunosuppressive drugs, initial encounter; E78.5 Hyperlipidemia, unspecified; F32.9 Major depressive disorder, single episode, unspecified; R53.1 Weakness; F29 Unspecified psychosis not due to a substance or known physiological condition; J44.9 Chronic obstructive pulmonary disease, unspecified; I65.22 Occlusion and stenosis of left carotid artery; H40.9 Unspecified glaucoma; I10 Essential (primary) hypertension; Z86.73 Personal history of transient ischemic attack (TIA), and cerebral infarction without residual deficits; Z79.4 Long term (current) use of insulin; Z85.46 Personal history of malignant neoplasm of prostate; Z92.3 Personal history of irradiation; Z89.512 Acquired absence of left leg below knee; Z87.891 Personal history of nicotine dependence; Z23 Encounter for immunization
CPT/HCPCS: 70553; 76937; 80048; 80053; 81001; 82550; 82552; 82948; 85007; 85025; 85027; 85610; 86140; 90686; 93225; 93226; A9579; J0696; J1815; J7030; Q2038

== ENCOUNTER 2017-03-04 16:14 | Inpatient (IN) | payer OTHER, MEDICARE ==
[2017-03-04] VITALS (8 sets, daily range): BP systolic 111–133; BP diastolic 58–69; PULSE 57–66; RESP 16–18; TEMP 94.3–98.1; O2SAT 93–99
[~2017-03-04] VITALS: Ht 175.3 cm; Wt 86.0 kg
[~2017-03-04 16:14] MED LIST changes: +ATOR20TA15 PO; +ECASA81 PO; +METO-309 PO
--- NOTE | 2017-03-04 16:54 | PD ---
Data Data Last Documented VS Vital Signs Date Time Temp Pulse Resp B/P (MAP) Pulse Ox O2 Delivery O2 Flow Rate FiO2 03/04/17 18:53 94.8 57 18 111/60 (77) 97 Nasal Cannula 2.00 Orders Orders Electrocardiogram (03/04/17 16:58) Complete Blood Count With Diff (03/04/17 16:58) Comprehensive Metabolic Panel (03/04/17 16:58) Prothrombin Time / Inr (Pt) (03/04/17 16:58) Act Partial Throm Time (Ptt) (03/04/17 16:58) Lactic Acid Sepsis Protocol (03/04/17 16:58) Magnesium (Mg) (03/04/17 16:58) Lipase (03/04/17 16:58) Ckmb (Isoenzyme) Profile (03/04/17 16:58) Troponin I (03/04/17 16:58) Urinalysis - C+S If Indicated (03/04/17 16:58) Influenzae A/B Antigen (03/04/17 16:58) Blood Culture (03/04/17 16:58) Chest, Single Ap (03/04/17 16:58) Blood Glucose (03/04/17 16:58) Ecg Monitoring (03/04/17 16:58) Iv Access Insert/Monitor (03/04/17 16:58) Oximetry (03/04/17 16:58) Oxygen Administration (03/04/17 16:58) Ct Brain W/O Iv Contrast(Rout) (03/04/17 17:32) Ct Abd/Pel W/O Iv Contrast (03/04/17 17:42) Type And Screen (03/04/17 17:54) Red Blood Cells (Rbc) (03/04/17 17:54) Blood Product Administration (03/04/17 17:54) Sodium Chlor 0.9% 250 Ml Inj (Ns 250 Ml (03/04/17 18:00) CKMB (03/04/17 17:05) CKMB% (03/04/17 17:05) Urine Culture (03/04/17 17:32) Restraints Non-Violent MONI.Q3H (03/04/17 18:52) Admit Order (Ed Use Only) (03/04/17 19:36) Labs Laboratory Tests Test 03/04/17 17:05 03/04/17 17:32 White Blood Count 18.1 TH/MM3 Red Blood Count 2.05 MIL/MM3 Hemoglobin 5.8 GM/DL Hematocrit 18.1 % Mean Corpuscular Volume 88.2 FL Mean Corpuscular Hemoglobin 28.4 PG Mean Corpuscular Hemoglobin Concent 32.2 % Red Cell Distribution Width 18.6 % Platelet Count 337 TH/MM3 Mean Platelet Volume 7.8 FL Neutrophils (%) (Auto) 91.1 % Lymphocytes (%) (Auto) 3.3 % Monocytes (%) (Auto) 5.2 % Eosinophils (%) (Auto) 0.2 % Basophils (%) (Auto) 0.2 % Neutrophils # (Auto) 16.5 TH/MM3 Lymphocytes # (Auto) 0.6 TH/MM3 Monocytes # (Auto) 0.9 TH/MM3 Eosinophils # (Auto) 0.0 TH/MM3 Basophils # (Auto) 0.0 TH/MM3 CBC Comment AUTO DIFF Differential Total Cells Counted 100 Neutrophils % (Manual) 91 % Band Neutrophils % 3 % Lymphocytes % 1 % Monocytes % 4 % Basophils % 1 % Neutrophils # (Manual) 17.0 TH/MM3 Differential Comment FINAL DIFF MANUAL Platelet Estimate NORMAL Platelet Morphology Comment NORMAL Ovalocytes 1+ Prothrombin Time 12.1 SEC Prothromb Time International Ratio 1.2 RATIO Activated Partial Thromboplast Time 29.4 SEC Blood Urea Nitrogen 59 MG/DL Creatinine 1.15 MG/DL Random Glucose 221 MG/DL Total Protein 4.8 GM/DL Albumin 1.4 GM/DL Calcium Level 7.6 MG/DL Magnesium Level 2.1 MG/DL Alkaline Phosphatase 73 U/L Aspartate Amino Transf (AST/SGOT) 15 U/L Alanine Aminotransferase (ALT/SGPT) 18 U/L Total Bilirubin 0.1 MG/DL Sodium Level 141 MEQ/L Potassium Level 4.8 MEQ/L Chloride Level 111 MEQ/L Carbon Dioxide Level 23.5 MEQ/L Anion Gap 7 MEQ/L Estimat Glomerular Filtration Rate 62 ML/MIN Lactic Acid Level 1.0 mmol/L Total Creatine Kinase 171 U/L Creatine Kinase MB 9.6 NG/ML Troponin I LESS THAN 0.02 NG/ML Lipase 70 U/L Urine Color YELLOW Urine Turbidity CLOUDY Urine pH 5.5 Urine Specific [place] 1.019 Urine Protein 100 mg/dL Urine Glucose (UA) NEG mg/dL Urine Ketones NEG mg/dL Urine Occult Blood MOD Urine Nitrite NEG Urine Bilirubin NEG Urine Urobilinogen LESS THAN 2.0 MG/DL Urine Leukocyte Esterase LARGE Urine RBC 162 /hpf Urine WBC /hpf Urine WBC Clumps MANY Urine Bacteria MOD /hpf Microscopic Urinalysis Comment CATH-CULTURE IND MDM Supervised Visit with SHAHIDA: Yes Narrative Course I, Dr. Hernandez, have reviewed the advance practice practitioner's documentation and am in agreement, met with the patient face to face, made the diagnosis, and the medical decision making was done by me. *My assessment and Findings: Patient seen and examined by me in addition to Nicole Watson. 76-year-old male significant really altered as an underlying history of dementia unclear what his baseline mental status is. Came from care home. Found to have anemia and hypothermia. Bear hugger was applied, type and cross 2 units. Fecal occult negative according to Ms. Castro. Will be admitted, discussed with Dr. Briseno, I think the patient can go to the floor if the nursing staff is comfortable with the level of hypothermia. No EKG changes. Admitting Information Admitting Physician Requests: Admit Condition: Mejia Diez MD Mar 04, 2017 16:54
[2017-03-04 17:27] LABS: AUTOMATED NEUTROPHIL # 16.5 TH/MM3 (1.8-7.7); BASOPHIL % 0.2 % (0.0-2.0); EOSINOPHIL % 0.2 % (0.0-4.0); LYMPH % 3.3 % (9.0-44.0); LYMPHOCYTE # 0.6 TH/MM3 (1.0-4.8); MEAN CELL VOLUME 88.2 FL (80.0-100.0); MEAN CORPUSCULAR HEMOGLOBIN 28.4 PG (27.0-34.0); MEAN CORPUSCULAR HGB CONC 32.2 % (32.0-36.0); MEAN PLATELET VOLUME 7.8 FL (7.0-11.0); MONO % 5.2 % (0.0-8.0); MONOCYTE # 0.9 TH/MM3 (0-0.9); NEUT % 91.1 % (16.0-70.0); PLATELET COUNT 337 TH/MM3 (150-450); RED BLOOD COUNT 2.05 MIL/MM3 (4.50-5.90); RED CELL DISTRIBUTION WIDTH 18.6 % (11.6-17.2); WHITE BLOOD COUNT 18.1 TH/MM3 (4.0-11.0)
[2017-03-04] MEDS ORDERED: THERTAB17 PO (17:27)
[2017-03-04] MEDS ORDERED: LACTTAB13 PO (17:27)
[2017-03-04] MEDS ORDERED: NOVOLOGP2 SQ (17:27)
[2017-03-04] MEDS ORDERED: RISP0.5T25 PO (17:27)
[2017-03-04] MEDS ORDERED: RISP1 PO (17:27)
[2017-03-04] MEDS ORDERED: ZINC220T PO (17:27)
[2017-03-04] MEDS ORDERED: CIPR-9 PO (17:27)
[2017-03-04] MEDS ORDERED: ASCO500C PO (17:27)
[2017-03-04] MEDS ORDERED: OCUVTAB4 PO (17:28)
[2017-03-04 17:32] LABS: HEMATOCRIT 18.1 % (39.0-51.0); HEMOGLOBIN 5.8 GM/DL (13.0-17.0)
[2017-03-04 17:42] LABS: INTERNATIONAL NORMALIZED RATIO 1.2 RATIO; PROTHROMBIN TIME - PATIENT 12.1 SEC (9.8-11.6)
--- NOTE | 2017-03-04 17:51 | PD ---
HPI Chief Complaint: Neuro Symptoms/ Deficits Time Seen by Provider: 16:28 Travel History International Travel<30 days: No Contact w/Intl Traveler<30days: No Traveled to known affect area: No History of Present Illness HPI 76-year-old male presents emergency department from [facility] for altered mental status. There is a discrepancy as far as the timeframe of onset between the nursing staff at [facility]. One nurse that started this afternoon while another nurse that started last night. Patient has been transferred to our facility from [facility] multiple times for the same complaint. Patient has history of insulin-dependent diabetes, hypertension and prostate and bladder cancer. 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 Compression sock in place over BKA. Patient has a chronic indwelling Caballero catheter that has caused an ulceration that the dorsal aspect of the penile shaft. Patient is extremely pale on arrival. Hemodynamically stable. Temperature was found to be 94.5F rectally. There were initiated. Caballero catheter replaced with his temperature sensitive Caballero catheter. Patient is not answering questions appropriately at this time. He mumbles intermittently. He is moving all his extremities spontaneously. Patient is currently undergoing IV chemotherapy. Right chest port accessed at our facility. PFSH Past Medical History Arthritis: Yes Anxiety: No Depression: Yes Heart Rhythm Problems: No Cancer: Yes (bladder) Cardiomyopathy: Yes Cardiovascular Problems: No High Cholesterol: Yes Congestive Heart Failure: No Cerebrovascular Accident: Yes (TIA ) Coronary Artery Disease: Yes Diabetes: Yes Patient Takes Glucophage: No Diminished Hearing: Yes (HOPI RT EAR) Endocrine: Yes (diabetes) Gastrointestinal Disorders: No GERD: Yes Genitourinary: Yes (bladder cancer) Headaches: No Hepatitis: No Hiatal Hernia: No Hypertension: Yes Immune Disorder: No Implanted Vascular Access Dvce: Yes (PORT R CHEST ) Kidney Stones: No Medical other: Yes (HYPERLIPIDEMIA) Musculoskeletal: Yes (LBKA) Neurologic: Yes (cva) Psychiatric: No Reproductive: No Respiratory: No Migraines: No Radiation Therapy: Yes (2006) Renal Failure: No Seizures: No Shingles: Yes Sleep Apnea: No Thyroid Disease: No Ulcer: No ?: Not Past Surgical History Abdominal Surgery: Yes (cholecystectomy) AICD: No Arteriovenous Shunt: No Body Medical Devices: L ILIAC STENT Cardiac Surgery: No Cholecystectomy: Yes Coronary Stent: Yes (DR. SIMEON) Ear Surgery: No Endocrine Surgery: Yes (thyroid) Eye Surgery: Yes (cataract right eye) Genitourinary Surgery: Yes (bladder) Gynecologic Surgery: No Insulin Pump: No Joint Replacement: No Neurologic Surgery: Yes (back) Oral Surgery: No Pacemaker: No Thoracic Surgery: No Tonsillectomy: Yes Other Surgery: Yes (LBKA, cholecystectomy, bladder, back. 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 benazepril (Unverified Adverse Reaction, Intermediate, Cough, 02/06/17) captopril (Unverified Adverse Reaction, Intermediate, Cough, 02/06/17) enalaprilat (Unverified Adverse Reaction, Intermediate, Cough, 02/06/17) fosinopril (Unverified Adverse Reaction, Intermediate, Cough, 02/06/17) lisinopril (Unverified Adverse Reaction, Intermediate, Cough, 02/06/17) quinapril (Unverified Adverse Reaction, Intermediate, Cough, 02/06/17) Reported Meds & Prescriptions Reported Meds & Active Scripts Active Lopressor (Metoprolol Tartrate) 50 Mg Tab 50 Mg PO Q12HR Aspirin DR (Aspirin) 81 Mg Tabdr 81 Mg PO DAILY Atorvastatin (Atorvastatin Calcium) 20 Mg Tab 20 Mg PO DAILY Gnp Vitamin B-1 (Thiamine HCl) 100 Mg Tab 100 Mg PO DAILY Reported Preservision Areds (Multiple Vitamins W/ Minerals) 1 Tab 2 Tab PO DAILY Cipro (Ciprofloxacin HCl) 500 Mg Tab 500 Mg PO BID 7 Days Risperdal (Risperidone) 1 Mg Tab 1 Mg PO DAILY AT 5PM Risperdal (Risperidone) 0.5 Mg Tab 0.5 Mg PO DAILY Floranex (Lactobacillus Acidophilus) 1 Tab 1 Tab PO BID Zinc Sulfate 220 Mg Tab 220 Mg PO DAILY 14 Days Vitamin C (Ascorbic Acid) 500 Mg Capsule 500 Mg PO BID Thera-M (Multiple Vitamins W/ Minerals) 1 Tab 1 Tab PO DAILY Novolog Inj (Insulin Aspart) 1,000 Unit/10 Ml Vial 0 SQ ACHS Sliding Scale as directed. Amlodipine (Amlodipine Besylate) 10 Mg Tab 10 Mg PO DAILY Dorzolamide Opth Drops (Dorzolamide HCl) 2% Soln 1 Drop RIGHT EYE BID Latanoprost Opth Drops (Latanoprost) 0.005% Drops 1 Drop RIGHT EYE HS Refrigerate until opened. Lantus Inj (Insulin Glargine) 1,000 Unit/10 Ml Vial 30 Units SQ HS Lantus Inj (Insulin Glargine) 1,000 Unit/10 Ml Vial 25 Units SQ DAILY Review of Systems ROS Limitations: Altered Mental Status Except as stated in HPI: all other systems reviewed are Neg Physical Exam Narrative GENERAL: Pale, obese, elderly 76-year-old male that is laying in bed and mumbling at times. Moves all extremities spontaneously. No acute respiratory distress noted. SKIN: Focused skin assessment very pale and cool. Coccyx pressure ulcer. HEAD: Atraumatic. Normocephalic. EYES: Pupils equal and round. No scleral icterus. No injection or drainage. ENT: No nasal bleeding or discharge. Mucous membranes pink and moist. NECK: Trachea midline. No JVD. CARDIOVASCULAR: Regular rate and rhythm. No murmur appreciated. RESPIRATORY: No accessory muscle use. Clear to auscultation. Breath sounds equal bilaterally. GENITOURINARY: Chronic indwelling Caballero catheter that has caused the dorsal aspect of the penile shaft become ulcerated down to the midshaft region. GASTROINTESTINAL: Abdomen large, soft, non-tender, nondistended. Hepatic and splenic margins not palpable. MUSCULOSKELETAL: Left BKA with compression sock in place over area. No obvious deformities. No clubbing. No cyanosis. No edema. NEUROLOGICAL: Patient mumbles intermittently. Patient moves all extremities spontaneously. PSYCHIATRIC: Appropriate mood and affect; insight and judgment normal. Data Data Last Documented VS Vital Signs Date Time Temp Pulse Resp B/P (MAP) Pulse Ox O2 Delivery O2 Flow Rate FiO2 03/04/17 18:53 94.8 57 18 111/60 (77) 97 Nasal Cannula 2.00 Orders Orders Electrocardiogram (03/04/17 16:58) Complete Blood Count With Diff (03/04/17 16:58) Comprehensive Metabolic Panel (03/04/17 16:58) Prothrombin Time / Inr (Pt) (03/04/17 16:58) Act Partial Throm Time (Ptt) (03/04/17 16:58) Lactic Acid Sepsis Protocol (03/04/17 16:58) Magnesium (Mg) (03/04/17 16:58) Lipase (03/04/17 16:58) Ckmb (Isoenzyme) Profile (03/04/17 16:58) Troponin I (03/04/17 16:58) Urinalysis - C+S If Indicated (03/04/17 16:58) Influenzae A/B Antigen (03/04/17 16:58) Blood Culture (03/04/17 16:58) Chest, Single Ap (03/04/17 16:58) Blood Glucose (03/04/17 16:58) Ecg Monitoring (03/04/17 16:58) Iv Access Insert/Monitor (03/04/17 16:58) Oximetry (03/04/17 16:58) Oxygen Administration (03/04/17 16:58) Ct Brain W/O Iv Contrast(Rout) (03/04/17 17:32) Ct Abd/Pel W/O Iv Contrast (03/04/17 17:42) Type And Screen (03/04/17 17:54) Red Blood Cells (Rbc) (03/04/17 17:54) Blood Product Administration (03/04/17 17:54) Sodium Chlor 0.9% 250 Ml Inj (Ns 250 Ml (03/04/17 18:00) CKMB (03/04/17 17:05) CKMB% (03/04/17 17:05) Urine Culture (03/04/17 17:32) Restraints Non-Violent MONI.Q3H (03/04/17 18:52) Admit Order (Ed Use Only) (03/04/17 19:36) Labs Laboratory Tests Test 03/04/17 17:05 03/04/17 17:32 White Blood Count 18.1 TH/MM3 Red Blood Count 2.05 MIL/MM3 Hemoglobin 5.8 GM/DL Hematocrit 18.1 % Mean Corpuscular Volume 88.2 FL Mean Corpuscular Hemoglobin 28.4 PG Mean Corpuscular Hemoglobin Concent 32.2 % Red Cell Distribution Width 18.6 % Platelet Count 337 TH/MM3 Mean Platelet Volume 7.8 FL Neutrophils (%) (Auto) 91.1 % Lymphocytes (%) (Auto) 3.3 % Monocytes (%) (Auto) 5.2 % Eosinophils (%) (Auto) 0.2 % Basophils (%) (Auto) 0.2 % Neutrophils # (Auto) 16.5 TH/MM3 Lymphocytes # (Auto) 0.6 TH/MM3 Monocytes # (Auto) 0.9 TH/MM3 Eosinophils # (Auto) 0.0 TH/MM3 Basophils # (Auto) 0.0 TH/MM3 CBC Comment AUTO DIFF Differential Total Cells Counted 100 Neutrophils % (Manual) 91 % Band Neutrophils % 3 % Lymphocytes % 1 % Monocytes % 4 % Basophils % 1 % Neutrophils # (Manual) 17.0 TH/MM3 Differential Comment FINAL DIFF MANUAL Platelet Estimate NORMAL Platelet Morphology Comment NORMAL Ovalocytes 1+ Prothrombin Time 12.1 SEC Prothromb Time International Ratio 1.2 RATIO Activated Partial Thromboplast Time 29.4 SEC Blood Urea Nitrogen 59 MG/DL Creatinine 1.15 MG/DL Random Glucose 221 MG/DL Total Protein 4.8 GM/DL Albumin 1.4 GM/DL Calcium Level 7.6 MG/DL Magnesium Level 2.1 MG/DL Alkaline Phosphatase 73 U/L Aspartate Amino Transf (AST/SGOT) 15 U/L Alanine Aminotransferase (ALT/SGPT) 18 U/L Total Bilirubin 0.1 MG/DL Sodium Level 141 MEQ/L Potassium Level 4.8 MEQ/L Chloride Level 111 MEQ/L Carbon Dioxide Level 23.5 MEQ/L Anion Gap 7 MEQ/L Estimat Glomerular Filtration Rate 62 ML/MIN Lactic Acid Level 1.0 mmol/L Total Creatine Kinase 171 U/L Creatine Kinase MB 9.6 NG/ML Troponin I LESS THAN 0.02 NG/ML Lipase 70 U/L Urine Color YELLOW Urine Turbidity CLOUDY Urine pH 5.5 Urine Specific Parker 1.019 Urine Protein 100 mg/dL Urine Glucose (UA) NEG mg/dL Urine Ketones NEG mg/dL Urine Occult Blood MOD Urine Nitrite NEG Urine Bilirubin NEG Urine Urobilinogen LESS THAN 2.0 MG/DL Urine Leukocyte Esterase LARGE Urine RBC 162 /hpf Urine WBC /hpf Urine WBC Clumps MANY Urine Bacteria MOD /hpf Microscopic Urinalysis Comment CATH-CULTURE IND MDM Medical Decision Making Medical Screen Exam Complete: Yes Emergency Medical Condition: Yes Differential Diagnosis Dementia diagnosis is not limited to anemia, GI bleed, metastatic cancer to the brain, bladder cancer, dementia, electrolyte abnormality, arrhythmia Narrative Course Patient placed on monitor, right chest port accessed, CBC, CMP, PT/INR, lactic acid, magnesium, lipase, troponin, CK-MB, UA, influenza, blood cultures ordered and pending. Patient's temperature was found to be 94.5 rectally. Bear hugger warmer applied to patient. Chronic indwelling Caballero catheter is replaced with a temperature sensing Caballero catheter. Chest x-ray ordered and pending. Chest x-ray shows minimal right peripheral lung opacity that may represent atelectasis or minimal consolidation. CBC results severe anemia with hemoglobin 5.8. Patient's medical records reviewed and patient's baseline hemoglobin is between 8 and 9. Bedside Hemoccult stool tested and was negative. Type and screen ordered and two PRBCs ordered. CMP results hypoalbuminemia at 1.4. Decreased calcium at 7.8. Glucose elevated at 221. Lactic acid was within normal limits at 1.0 Troponin was negative at less than 0.02. PT/INR reflects mildly elevated PT at 12.1 but otherwise no acute abnormality. UA is reflective of a urinary tract infection with innumerable WBCs and high amounts of bacteria and esterase. Due to the patient's mental status CT of the brain was ordered to assess for brain metastasis. Trying to assess for a bleed due to the patient's hemoglobin CT of the abdomen was ordered. Cuprous Chloride Operator, Dr Briseno was consulted regarding admission. Cuprous Chloride Operator reviewed abdominal CT and there is no bleed found. Cuprous Chloride Operator believes the low hemoglobin as a result of the patient's chronic conditions and cancer. He believes the patient will be stable for floor admission despite the hypothermia. Dr. Bingham accepts admission. Patient will be admitted to the hospital at this time. Diagnosis Primary Impression: anemia Additional Impressions: Bladder cancer Qualified Codes: C67.9 - Malignant neoplasm of bladder, unspecified confusion/delirium Hypothermia Qualified Codes: T68.XXXA - Hypothermia, initial encounter Admitting Information Admitting Physician Requests: Admit Nicole Watson Mar 04, 2017 17:51
[2017-03-04 17:54] LABS: ALBUMIN 1.4 GM/DL (3.4-5.0); ALT (GPT) 18 U/L (12-78); AST (GOT) 15 U/L (15-37); BICARBONATE 23.5 MEQ/L (21.0-32.0); BLOOD UREA NITROGEN 59 MG/DL (7-18); CALCIUM 7.6 MG/DL (8.5-10.1); CHLORIDE 111 MEQ/L (98-107); CREATININE 1.15 MG/DL (0.60-1.30); GLOMERULAR FILTRATION RATE 62 ML/MIN (>89); GLUCOSE,RANDOM 221 MG/DL (74-106); LIPASE 70 U/L (73-393); MAGNESIUM 2.1 MG/DL (1.5-2.5); SODIUM (NA) 141 MEQ/L (136-145)
[2017-03-04 17:59] LABS: ALKALINE PHOSPHATASE 73 U/L (45-117); TOTAL BILIRUBIN ADULT 0.1 MG/DL (0.2-1.0); TOTAL PROTEIN 4.8 GM/DL (6.4-8.2); TROPONIN I LESS THAN 0.02 NG/ML (0.02-0.05)
[2017-03-04] MEDS ORDERED: SODIUM CHLOR 0.9% 250 ML INJ 250 ML IV ONE (18:00)
[2017-03-04 18:02] LABS: BANDS 3 % (0-6); BASOPHILS 1 % (0-2); LYMPHOCYTES 1 % (9-44); MONOCYTES 4 % (0-8); OVALOCYTES 1+ (NORMAL); POLYS (SEG NEUTROPHILS) 91 % (16-70)
--- NOTE | 2017-03-04 18:11 | RADRPT ---
EXAM DATE/TIME: 03/04/2017 17:14 [facility] COMPARISON: CHEST SINGLE AP, February 10, 2017, 3:43. INDICATIONS : Shortness of breath. MEDICAL HISTORY : Cerebrovascular disease. Cardiovascular disease Diabetes mellitus type 2. SURGICAL HISTORY : Cholecystectomy. Infusaport. ENCOUNTER: Initial ACUITY: 1 day PAIN SCORE: Non-responsive. LOCATION: Bilateral chest FINDINGS: Single AP view of the chest. Right-sided [id number] remains in place. Mild patchy right perihilar opacity. Cardiomediastinal silhouette within normal limits. No evidence of pleural effusion or pneumo thorax. CONCLUSION: Minimal right perihilar lung opacity may represent atelectasis or minimal consolidation. Corby Melendez MD on March 04, 2017 at 18:09 Board Certified Radiologist. This report was verified electronically.
[2017-03-04 18:28] LABS: BACTERIA, URINE MOD /hpf; BILIRUBIN, URINE NEG (NEG); BLOOD, URINE MOD (NEG); GLUCOSE,URINE NEG (NEG); KETONE, URINE NEG (NEG); NITRITE,URINE NEG (NEG); PH, URINE 5.5 (5.0-8.5); URINE COLOR YELLOW (YELLW/STRAW); URINE LEUKOCYTE ESTERASE LARGE (NEG); WHITE BLOOD CELL CLUMPS MANY
--- NOTE | 2017-03-04 19:25 | RADRPT ---
EXAM DATE/TIME: 03/04/2017 18:18 [facility] COMPARISON: CT BRAIN W/O CONTRAST, February 14, 2017, 8:22. INDICATIONS : Altered mental status. RADIATION DOSE: 56.35 CTDIvol (mGy) ; Patient motion MEDICAL HISTORY : Stroke. Hypertension. Carcinoma, bladder. SURGICAL HISTORY : thyroid surgery ENCOUNTER: Initial ACUITY: 1 day PAIN SCALE: Non-responsive LOCATION: Bilateral head TECHNIQUE: Multiple contiguous axial images were obtained of the head. Using automated exposure control and adj ustment of the mA and/or kV according to patient size, radiation dose was kept as low as reasonably a chievable to obtain optimal diagnostic quality images. DICOM format image data is available electro nically for review and comparison. FINDINGS: CEREBRUM: The ventricles are normal for age. No evidence of midline shift, mass lesion, hemorrhage or acute in farction. No extra-axial fluid collections are seen. Chronic ischemic change in the right basal gang shannon region. POSTERIOR FOSSA: The cerebellum and brainstem are intact. The 4th ventricle is midline. The cerebellopontine angle i s unremarkable. EXTRACRANIAL: Partial opacification of the right mastoid air cells. This finding is new. SKULL: The calvaria is intact. No evidence of skull fracture. CONCLUSION: No acute intracranial findings. Partial opacification of right sided mastoid air cells new. Corby Melendez MD on March 04, 2017 at 19:21 Board Certified Radiologist. This report was verified electronically.
--- NOTE | 2017-03-04 19:32 | RADRPT ---
EXAM DATE/TIME: 03/04/2017 18:28 [facility] COMPARISON: No previous studies available for comparison. INDICATIONS : Diffuse abdomen pain today. ORAL CONTRAST: No oral contrast ingested. RADIATION DOSE: 14.88 CTDIvol (mGy) MEDICAL HISTORY : Stroke. Carcinoma, bladder. Hypertension.diabetes SURGICAL HISTORY : Cholecystectomy. thyroid surgery ENCOUNTER: Initial ACUITY: 1 day PAIN SCALE: Non-responsive LOCATION: Bilateral abdomen TECHNIQUE: Volumetric scanning of the abdomen and pelvis was performed. Using automated exposure control and ad justment of the mA and/or kV according to patient size, radiation dose was kept as low as reasonably achievable to obtain optimal diagnostic quality images. DICOM format image data is available electro nically for review and comparison. FINDINGS: LOWER LUNGS: Small moderate-sized bilateral pleural effusions. Bilateral lower lobe atelectasis. LIVER: Status post cholecystectomy. Liver within normal limits. SPLEEN: Multiple calcifications. Otherwise within normal limits. PANCREAS: Within normal limits. KIDNEYS: Normal in size and shape. There is no mass, stone, or hydronephrosis. ADRENAL GLANDS: Within normal limits. VASCULAR: Diffuse arterial calcification. Aortic diameter within normal limits. BOWEL/MESENTERY: No evidence of bowel dilatation. No free air or free fluid. Appendix within normal limits. ABDOMINAL WALL: Within normal limits. RETROPERITONEUM: There is no lymphadenopathy. BLADDER: Caballero catheter in place. REPRODUCTIVE: Within normal limits. INGUINAL: There is no lymphadenopathy or hernia. MUSCULOSKELETAL: Degenerative findings lumbar spine. CONCLUSION: 1. Bilateral pleural effusions small to moderate in size. 2. No acute findings in the abdomen and pelvis. Corby Melendez MD on March 04, 2017 at 19:27 Board Certified Radiologist. This report was verified electronically.
[2017-03-04] MEDS ORDERED: ACETAMINOPHEN 325 MG TAB PO PRN (21:00)
[2017-03-04] MEDS ORDERED: LACTULOSE SYRUP 20 GM/30 ML CUP PO PRN (21:00)
[2017-03-04] MEDS ORDERED: MAGNESIUM HYDROXIDE SUSP 30 ML CUP PO PRN (21:00)
[2017-03-04] MEDS ORDERED: risperiDONE 1 MG TAB PO SCH (21:00)
[2017-03-04] MEDS: METOPROLOL TARTRATE 50 MG TAB PO SCH (21:00)
[2017-03-04] MEDS ORDERED: BISACODYL 10 MG SUPP RECTAL PRN (21:00)
[2017-03-04] MEDS: DOCUSATE SODIUM 50 MG/SENNA 8.6 MG TAB PO SCH (21:00)
[2017-03-04] MEDS ORDERED: NALOXONE HCL 0.4 MG/ML AMP IV PUSH PRN (21:00)
[2017-03-04] MEDS ORDERED: ONDANSETRON HCL 4 MG/2 ML VIAL IVP PRN (21:00)
[2017-03-04] MEDS ORDERED: SENNOSIDES 8.6 MG TAB PO PRN (21:00)
[2017-03-04] MEDS: DORZOLAMIDE 2% OPTH SOLN 200 DROP/10 ML BTLO RIGHT EYE SCH (23:42)
[2017-03-04] MEDS: LATANOPROST 0.005% OPHT SOLN 2.5 ML BTL RIGHT EYE SCH (23:42)
[2017-03-04] MEDS: SODIUM CHLORIDE 0.9% FLUSH 10 ML FLUSH IV FLUSH SCH (23:45)
[2017-03-05] VITALS (10 sets, daily range): BP systolic 106–160; BP diastolic 52–85; PULSE 66–93; RESP 16–18; TEMP 97.3–98.9; O2SAT 92–98
[2017-03-05] MEDS ORDERED: cefTRIAXone INJ 1,000 MG in SODIUM CHLORIDE 0.9% INJ 100 ML IV SCH ×2
[2017-03-05] MEDS ORDERED: Vancomycin Consult Pharmacy 1 EA OTHER SCH
[2017-03-05] MEDS ORDERED: VANCOMYCIN INJ 1,000 MG in SODIUM CHLOR 0.9% 250 ML INJ 250 ML IV SCH ×2
--- NOTE | 2017-03-05 00:13 | HHI.HP ---
HPI Service [facility] Primary Care Physician Unknown Admission Diagnosis anemia, bladder cancer, AMS, hypothermia Diagnoses: Travel History International Travel<30 Days: No Contact w/Intl Traveler <30 Da: No Traveled to Known Affected Are: No History of Present Illness 76-year-old male with a past medical history significant for insulin-dependent diabetes mellitus, hypertension and bladder cancer was brought to the emergency department from his retirement facility for altered mental status. Patient was recently hospitalized for similar symptoms although his more altered now. He is unable to answer my questions and mumbles incoherently occasionally. He is status post TURBT on September 01 and completed 4 cycles of neoadjuvant chemotherapy in January 2017. He was hypothermic on arrival with a temperature of 94.8. Laboratory values significant for an H&H of 5.8/18.1 and a leukocytosis of 18.1. Patient with a chronic Caballero and UA significant for moderate bacteria, many WBC clumps, large leukocyte esterase, large RBCs. Chest x-ray showed minimal right perihilar lung opacity. Head CT negative for acute intracranial findings. CT of the abdomen/pelvis showed bilateral pleural effusions with no acute findings in the abdomen/pelvis. 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 Back surgery CEA right side Reported Medications Reported Meds & Active Scripts Active Lopressor (Metoprolol Tartrate) 50 Mg Tab 50 Mg PO Q12HR Aspirin DR (Aspirin) 81 Mg Tabdr 81 Mg PO DAILY Atorvastatin (Atorvastatin Calcium) 20 Mg Tab 20 Mg PO DAILY Gnp Vitamin B-1 (Thiamine HCl) 100 Mg Tab 100 Mg PO DAILY Reported Preservision Areds (Multiple Vitamins W/ Minerals) 1 Tab 2 Tab PO DAILY Cipro (Ciprofloxacin HCl) 500 Mg Tab 500 Mg PO BID 7 Days Risperdal (Risperidone) 1 Mg Tab 1 Mg PO DAILY AT 5PM Risperdal (Risperidone) 0.5 Mg Tab 0.5 Mg PO DAILY Floranex (Lactobacillus Acidophilus) 1 Tab 1 Tab PO BID Zinc Sulfate 220 Mg Tab 220 Mg PO DAILY 14 Days Vitamin C (Ascorbic Acid) 500 Mg Capsule 500 Mg PO BID Thera-M (Multiple Vitamins W/ Minerals) 1 Tab 1 Tab PO DAILY Novolog Inj (Insulin Aspart) 1,000 Unit/10 Ml Vial 0 SQ ACHS Sliding Scale as directed. Amlodipine (Amlodipine Besylate) 10 Mg Tab 10 Mg PO DAILY Dorzolamide Opth Drops (Dorzolamide HCl) 2% Soln 1 Drop RIGHT EYE BID Latanoprost Opth Drops (Latanoprost) 0.005% Drops 1 Drop RIGHT EYE HS Refrigerate until opened. 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 Social History 20 pack year history of smoking, quit 30 years ago. Denies alcohol or illicit drugs. Physical Exam Vital Signs Vital Signs Date Time Temp Pulse Resp B/P (MAP) Pulse Ox O2 Delivery O2 Flow Rate FiO2 03/04/17 22:53 03/04/17 22:29 96.1 66 16 111/69 99 03/04/17 21:26 96.1 66 16 116/66 99 03/04/17 20:45 96.1 66 16 133/61 99 03/04/17 20:26 98.1 62 16 116/66 99 03/04/17 18:53 94.8 57 18 111/60 (77) 97 Nasal Cannula 2.00 03/04/17 17:43 94.3 59 18 113/58 (76) 95 Nasal Cannula 4.00 03/04/17 17:27 59 18 92 Nasal Cannula 3.00 03/04/17 17:25 18 93 Nasal Cannula 3.00 03/04/17 17:25 92 Nasal Cannula 3.00 03/04/17 16:48 58 18 121/58 (79) 93 Nasal Cannula 2.00 Physical Exam GENERAL: male lying in bed SKIN: Pale. No rashes, ecchymoses or lesions. Cool and dry. HEAD: Atraumatic. Normocephalic. EYES: Pupils equal round and reactive. Extraocular motions intact. No scleral icterus. No injection or drainage. ENT: Nose without bleeding, purulent drainage or septal hematoma. Throat without erythema, tonsillar hypertrophy or exudate. Uvula midline. Airway patent. NECK: Trachea midline. No JVD or lymphadenopathy. Supple, nontender, no meningeal signs. CARDIOVASCULAR: Regular rate and rhythm without murmurs, gallops, or rubs. RESPIRATORY: Clear to auscultation. Breath sounds equal bilaterally. No wheezes , rales, or rhonchi. GASTROINTESTINAL: Abdomen soft, non-tender, nondistended. No hepato-splenomegaly , or palpable masses. No guarding. MUSCULOSKELETAL: Right extremity without clubbing, cyanosis, or edema. No joint tenderness, effusion, or edema noted. No calf tenderness. Left AKA. NEUROLOGICAL: Awake and alert. Cranial nerves II through XII intact. Motor and sensory grossly within normal limits. Normal speech. Laboratory Laboratory Tests Test 03/04/17 17:05 03/04/17 17:32 White Blood Count 18.1 Red Blood Count 2.05 Hemoglobin 5.8 Hematocrit 18.1 Mean Corpuscular Volume 88.2 Mean Corpuscular Hemoglobin 28.4 Mean Corpuscular Hemoglobin Concent 32.2 Red Cell Distribution Width 18.6 Platelet Count 337 Mean Platelet Volume 7.8 Neutrophils (%) (Auto) 91.1 Lymphocytes (%) (Auto) 3.3 Monocytes (%) (Auto) 5.2 Eosinophils (%) (Auto) 0.2 Basophils (%) (Auto) 0.2 Neutrophils # (Auto) 16.5 Lymphocytes # (Auto) 0.6 Monocytes # (Auto) 0.9 Eosinophils # (Auto) 0.0 Basophils # (Auto) 0.0 CBC Comment AUTO DIFF Differential Total Cells Counted 100 Neutrophils % (Manual) 91 Band Neutrophils % 3 Lymphocytes % 1 Monocytes % 4 Basophils % 1 Neutrophils # (Manual) 17.0 Differential Comment FINAL DIFF MANUAL Platelet Estimate NORMAL Platelet Morphology Comment NORMAL Ovalocytes 1+ Prothrombin Time 12.1 Prothromb Time International Ratio 1.2 Activated Partial Thromboplast Time 29.4 Blood Urea Nitrogen 59 Creatinine 1.15 Random Glucose 221 Total Protein 4.8 Albumin 1.4 Calcium Level 7.6 Magnesium Level 2.1 Alkaline Phosphatase 73 Aspartate Amino Transf (AST/SGOT) 15 Alanine Aminotransferase (ALT/SGPT) 18 Total Bilirubin 0.1 Sodium Level 141 Potassium Level 4.8 Chloride Level 111 Carbon Dioxide Level 23.5 Anion Gap 7 Estimat Glomerular Filtration Rate 62 Lactic Acid Level 1.0 Total Creatine Kinase 171 Creatine Kinase MB 9.6 Troponin I LESS THAN 0.02 Lipase 70 Urine Color YELLOW Urine Turbidity CLOUDY Urine pH 5.5 Urine Specific [place] 1.019 Urine Protein 100 Urine Glucose (UA) NEG Urine Ketones NEG Urine Occult Blood MOD Urine Nitrite NEG Urine Bilirubin NEG Urine Urobilinogen LESS THAN 2.0 Urine Leukocyte Esterase LARGE Urine RBC 162 Urine WBC Urine WBC Clumps MANY Urine Bacteria MOD Microscopic Urinalysis Comment CATH-CULTURE IND Date/Time Source Procedure Growth Status 03/04/17 17:04 Blood Peripheral Aerobic Blood Culture Pending Received 03/04/17 17:04 Blood Peripheral Anaerobic Blood Culture Pending Received 03/04/17 20:50 Nasal Washing Influenza Types A,B Antigen (SANGEETA) - Final NEGATIVE FOR FLU A AND B ANTIGEN.... Complete 03/04/17 17:32 Urine Clean Catch Urine Culture Pending Received Result Diagram: 03/04/17 1705 03/04/17 1705 Caprini VTE Risk Assessment Caprini VTE Risk Assessment: Mod/High Risk (score >= 2) Caprini Risk Assessment Model Point Value = 1 Point Value = 2 Point Value = 3 Point Value = 5 Age 41-60 Minor surgery BMI > 25 kg/m2 Swollen legs Varicose veins or History of unexplained or recurrent spontaneous Oral contraceptives or hormone replacement Sepsis (< 1 month) Serious lung disease, including pneumonia (< 1 month) Abnormal pulmonary function Acute myocardial infarction Congestive heart failure (< 1 month) History of inflammatory bowel disease Medical patient at bed rest Age 61-74 Arthroscopic surgery Major open surgery (> 45 min) Laparoscopic surgery (> 45 min) Malignancy Confined to bed (> 72 hours) Immobilizing plaster cast Central venous access Age >= 75 History of VTE Family history of VTE Factor V Leiden Prothrombin [id number] Lupus anticoagulant Anticardiolipin antibodies Elevated serum homocysteine Heparin-induced thrombocytopenia Other congenital or acquired thrombophilia Stroke (< 1 month) Elective arthroplasty Hip, pelvis, or leg fracture Acute spinal cord injury (< 1 month) Prophylaxis Regimen Total Risk Factor Score Risk Level Prophylaxis Regimen 0-1 Low Early ambulation 2 Moderate Order ONE of the following: *Sequential Compression Device (SCD) *Heparin 5000 units SQ BID 3-4 Higher Order ONE of the following medications: *Heparin 5000 units SQ TID *Enoxaparin/Lovenox 40 mg SQ daily (WT < 150 kg, CrCl > 30 mL/min) *Enoxaparin/Lovenox 30 mg SQ daily (WT < 150 kg, CrCl > 10-29 mL/min) *Enoxaparin/Lovenox 30 mg SQ BID (WT < 150 kg, CrCl > 30 mL/min) AND/OR *Sequential Compression Device (SCD) 5 or more Highest Order ONE of the following medications: *Heparin 5000 units SQ TID (Preferred with Epidurals) *Enoxaparin/Lovenox 40 mg SQ daily (WT < 150 kg, CrCl > 30 mL/min) *Enoxaparin/Lovenox 30 mg SQ daily (WT < 150 kg, CrCl > 10-29 mL/min) *Enoxaparin/Lovenox 30 mg SQ BID (WT < 150 kg, CrCl > 30 mL/min) AND *Sequential Compression Device (SCD) Assessment and Plan Assessment and Plan Assessment/plan: 1. Severe anemia H&H 5.8/18.1, baseline 12/07 Transfusing 2 units PRBCs Urine positive for moderate occult blood, 162 RBCs Hemoccult negative in the ED Likely secondary to anemia of chronic disease and bladder cancer Monitor H&H 2. Hypothermia Bear hugger placed in ED Monitor internal temp with Caballero May be 2/2 sepsis 3. Altered mental status Encephalopathic versus infectious etiology CT head with no acute findings Brain MRI pending Treatment for UTI/PNA as below Holding home Risperdal If patient does not improve, may benefit from repeat neurology consult 4. Healthcare acquired PNA/Sepsis Patient with leukocytosis, hypothermia and chest x-ray concerning for right perihilar lung opacity, images reviewed by nd Vanc/Alen Blood cultures pending 5. UTI Patient with chronic Caballero, changed in the ED Antibiotics as above Urine culture pending 4. Bladder cancer Oncology consulted, appreciate recommendations 5. Insulin-dependent diabetes mellitus Holding home Lantus as patient currently nothing by mouth SSI Monitor blood glucose 6. Hypertension/hyperlipidemia Continue home medications once swallow eval complete FEN NPO until swallow eval complete Electrolytes: monitor and replete prn Holding pharmacologic anticoagulation secondary to severe anemia Case discussed with the ER physician at length Physician Certification 2 Midnight Certification Type: Admission for Inpatient Services Order for Inpatient Services The services are ordered in accordance with Medicare regulations or non- Medicare payer requirements, as applicable. In the case of services not specified as inpatient-only, they are appropriately provided as inpatient services in accordance with the 2-midnight benchmark. Estimated LOS (days): 2 2 days is the estimated time the patient will need to remain in the hospital, assuming treatment plan goals are met and no additional complications. Post-Hospital Plan: Not yet determined Aileen Bingham MD Mar 05, 2017 00:13
[2017-03-05] MEDS: PIPERACIL-TAZO 4.5 GM PREMIX 100 ML IV SCH ×4 (00:49→17:37)
[2017-03-05] MEDS ORDERED: VANCOMYCIN INJ 1,700 MG in SODIUM CHLORID 0.9% 500 ML INJ 500 ML IV SCH (01:00)
[2017-03-05 06:58] LABS: ALBUMIN 1.5 GM/DL (3.4-5.0); ALT (GPT) 18 U/L (12-78); AST (GOT) 16 U/L (15-37); BICARBONATE 20.4 MEQ/L (21.0-32.0); BLOOD UREA NITROGEN 66 MG/DL (7-18); CALCIUM 7.8 MG/DL (8.5-10.1); CHLORIDE 114 MEQ/L (98-107); CREATININE 1.19 MG/DL (0.60-1.30); GLOMERULAR FILTRATION RATE 60 ML/MIN (>89); GLUCOSE,RANDOM 117 MG/DL (74-106); SODIUM (NA) 143 MEQ/L (136-145)
[2017-03-05 06:59] LABS: ALKALINE PHOSPHATASE 65 U/L (45-117); TOTAL BILIRUBIN ADULT 0.4 MG/DL (0.2-1.0)
[2017-03-05] MEDS: DOCUSATE SODIUM 50 MG/SENNA 8.6 MG TAB PO SCH (09:00)
[2017-03-05] MEDS: DORZOLAMIDE 2% OPTH SOLN 200 DROP/10 ML BTLO RIGHT EYE SCH ×2 (09:00→21:36)
[2017-03-05] MEDS: SODIUM CHLORIDE 0.9% FLUSH 10 ML FLUSH IV FLUSH SCH ×2 (09:00→21:41)
[2017-03-05] MEDS: ATORVASTATIN 20 MG TAB PO SCH (09:44)
[2017-03-05] MEDS: METOPROLOL TARTRATE 50 MG TAB PO SCH ×2 (09:44→21:41)
[2017-03-05 11:19] LABS: AUTOMATED NEUTROPHIL # 13.7 TH/MM3 (1.8-7.7); EOSINOPHIL # 0.1 TH/MM3 (0-0.4); EOSINOPHIL % 0.8 % (0.0-4.0); HEMATOCRIT 23.7 % (39.0-51.0); HEMOGLOBIN 7.9 GM/DL (13.0-17.0); LYMPH % 9.1 % (9.0-44.0); LYMPHOCYTE # 1.6 TH/MM3 (1.0-4.8); MEAN CELL VOLUME 86.5 FL (80.0-100.0); MEAN CORPUSCULAR HEMOGLOBIN 28.8 PG (27.0-34.0); MEAN CORPUSCULAR HGB CONC 33.2 % (32.0-36.0); MEAN PLATELET VOLUME 7.9 FL (7.0-11.0); MONOCYTE # 1.7 TH/MM3 (0-0.9); NEUT % 80.1 % (16.0-70.0); PLATELET COUNT 376 TH/MM3 (150-450); RED BLOOD COUNT 2.74 MIL/MM3 (4.50-5.90); WHITE BLOOD COUNT 17.1 TH/MM3 (4.0-11.0)
--- NOTE | 2017-03-05 12:37 | HHI.PR ---
Subjective Remarks Follow-up anemia of chronic disease/metabolic encephalopathy/UTI 03/05/17-patient seen and examined, patient is confused however oriented to self , date of as well as Place of . Objective Vitals Vital Signs Date Time Temp Pulse Resp B/P (MAP) Pulse Ox O2 Delivery O2 Flow Rate FiO2 03/05/17 07:31 97.6 78 16 134/77 (96) 96 03/05/17 06:22 98.9 66 16 124/53 95 03/05/17 04:08 98.9 80 16 133/52 98 03/05/17 03:48 98.4 75 18 133/76 95 03/05/17 03:19 98.3 80 16 160/85 96 03/05/17 00:00 97.3 66 16 106/69 (81) 95 03/04/17 22:53 03/04/17 22:29 96.1 66 16 111/69 99 03/04/17 21:26 96.1 66 16 116/66 99 03/04/17 20:45 96.1 66 16 133/61 99 03/04/17 20:26 98.1 62 16 116/66 99 03/04/17 18:53 94.8 57 18 111/60 (77) 97 Nasal Cannula 2.00 03/04/17 17:43 94.3 59 18 113/58 (76) 95 Nasal Cannula 4.00 03/04/17 17:27 59 18 92 Nasal Cannula 3.00 03/04/17 17:25 18 93 Nasal Cannula 3.00 03/04/17 17:25 92 Nasal Cannula 3.00 03/04/17 16:48 58 18 121/58 (79) 93 Nasal Cannula 2.00 I/O 03/04/17 03/04/17 03/04/17 03/05/17 03/05/17 03/05/17 07:00 15:00 23:00 07:00 15:00 23:00 Intake Total 525 ml 720 ml Output Total 400 ml Balance 525 ml 320 ml Intake Oral 120 ml IV Total 200 ml Packed Cells 400 ml 400 ml Blood Product IV Normal Saline Flush 125 ml Output Urine Total 400 ml Result Diagram: 03/05/17 1055 03/05/17 0615 Imaging Last Impressions Abdomen/Pelvis CT 03/04/17 774 Signed Impressions: Service Date/Time: Saturday, March 04, 2017 18:28 - CONCLUSION: 1. Bilateral pleural effusions small to moderate in size. 2. No acute findings in the abdomen and pelvis. Corby Melendez MD Head CT 03/04/17 1732 Signed Impressions: Service Date/Time: Saturday, March 04, 2017 18:18 - CONCLUSION: No acute intracranial findings. Partial opacification of right sided mastoid air cells new. Corby Melendez MD Chest X-Ray 03/04/17 1658 Signed Impressions: Service Date/Time: Saturday, March 04, 2017 17:14 - CONCLUSION: Minimal right perihilar lung opacity may represent atelectasis or minimal consolidation. Corby Melendez MD Objective Remarks GENERAL: NAD with upper restraints in place SKIN: Warm and dry. HEAD: Normocephalic. EYES: No scleral icterus. No injection or drainage. NECK: Supple, trachea midline. No JVD or lymphadenopathy. CARDIOVASCULAR: Regular rate and rhythm without murmurs, gallops, or rubs. RESPIRATORY: Breath sounds equal bilaterally. No accessory muscle use. GASTROINTESTINAL: Abdomen soft, non-tender, nondistended. MUSCULOSKELETAL: No cyanosis, or edema. BACK: Nontender without obvious deformity. No CVA tenderness. A/P Problem List: (1) Catheter-associated urinary tract infection ICD Code: T83.511A - Infection and inflammatory reaction due to indwelling urethral catheter, initial encounter; N39.0 - Urinary tract infection, site not specified (2) Metabolic encephalopathy ICD Code: G93.41 - Metabolic encephalopathy Assessment and Plan 76 year-old man with 1. Severe anemia of chronic disease Transfused 2 units PRBCs Hemoccult negative in the ED Continue to monitor H&H 2. Catheter associated UTI Continue with Zosyn pending urine culture Patient with chronic Caballero, changed in the ED 3. Hypothermia Bear hugger placed in ED Monitor internal temp with Caballero May be 2/[address] sepsis [address] head with no acute findings Brain MRI pending Treatment for UTI/PNA as below 5. Healthcare acquired PNA/Sepsis/UTI Continue with Vanc/Zosyn Blood cultures pending 6. Bladder cancer Oncology consulted, appreciate recommendations 7. Insulin-dependent diabetes mellitus Holding home Lantus SSI Monitor blood glucose 8. Hypertension/hyperlipidemia Continue home medications Jeffy Fagan MD Mar 05, 2017 12:37
--- NOTE | 2017-03-05 12:40 | RADRPT ---
EXAM DATE/TIME: 03/05/2017 11:28 [facility] COMPARISON: No previous studies available for comparison. INDICATIONS : CVA. Altered mental status. MEDICAL HISTORY : Diabetes mellitus type 2. Carcinoma, bladder. Carcinoma, prostate. SURGICAL HISTORY : Cholecystectomy. Left BKA. ENCOUNTER: Initial ACUITY: 1 day PAIN SCORE: 0/10 LOCATION: cranial TECHNIQUE: Multiplanar, multisequence MRI of the brain was performed without contrast. FINDINGS: Moderate motion artifact is present. Marked periventricular white matter changes are evident with so me atrophy. There is no restricted diffusion is just acute infarction. There is no parenchymal hemo rrhage. There is no mass effect. Posterior fossa is unremarkable. CONCLUSION: Moderate motion artifact. Negative for acute ischemic event. Atrophy with periventricular changes. Bennett Ibarra MD FACR on March 05, 2017 at 12:38 Board Certified Radiologist. This report was verified electronically.
--- NOTE | 2017-03-05 15:46 | MB ---
cc: ISA MONCADA DATE OF CONSULTATION: 03/05/2017. REASON FOR CONSULTATION: History of bladder cancer, severe anemia, confusion, probable encephalopathy. PATIENT PROFILE: The patient is unable to give a history. He does not know the he was brought to the hospital from a assisted and believes he is in [place]. He has a vague history of the past. He has no idea who the president is. HPI: He is 76 years old. He was originally seen by Dr. Dumont, who is a medical oncologist, on 02/05/2017. He has a history of a prostate cancer in 2006 and received external beam radiation therapy at the [facility] in [place]. He has had no recurrence of the prostate cancer. He developed hematuria in July of 2016. He had a CT scan of the abdomen and pelvis, was found to have a 3.6 cm mass in the left lateral wall. He was referred to Dr. Dalton- urologist On September 01, 2016, he had a cystoscopy and transurethral resection of a bladder tumor. The pathology showed a high-grade T2 transitional cell cancer. It was recommended that he receive neoadjuvant chemotherapy and he received I believe three or four months of cisplatin and gemcitabine. His last chemotherapy was completed in approximately the third week of January of 2017. He received a total of four cycles. He has had a significant deterioration in health. He has had recent syncope. He has had recurrent encephalopathy requiring hospitalization and there has been no explanation forthcoming. When he was in the hospital in early February of 2017, he saw Dr. Gilberto Garrido, who is a neurologist, and was felt to have encephalopathy. He saw a psychiatrist. He improved with time. He presented to the emergency room on 03/04 for altered mental status. The patient recollects having urinary bleeding but is not able to quantify this. There has been no blood identified in the stool. He was found to be severely anemic on 03/04: Hemoglobin 5.8, hematocrit 28, white count 18,000 and platelets 237,000. The MCV is 88. On 02/18/2017, the patient had a hemoglobin of 9. He has been given two units of packed cells. Today the hemoglobin is 7.9, hematocrit 23, white count 17,000 and platelets of 376,000. BUN is 66, creatinine is 1.19, sodium 143, potassium 4.3. Liver function tests are normal. Albumin is 1.5. Most recent TSH on 02/13/2017 is 2.0. Since admission, the patient has had the following tests: An MRI of the brain on 03/05 shows moderate motion artifact negative for an acute ischemic event. There is atrophy with periventricular changes. CT of the abdomen and pelvis on 03/04 shows bilateral pleural effusions small to moderate in size, no acute findings in the abdomen or pelvis. A chest x-ray 03/04/2017 shows minimal right perihilar lung opacity which may represent atelectasis and minimal consolidation. PAST SURGICAL HISTORY: 1. 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 2. At some point, biopsy of the prostate revealing prostate cancer treated with radiation therapy. 3. On 07/26/2011, transmetatarsal amputation left foot. 4. Right carotid endarterectomy 02/28/2013. 5. Left above-knee amputation. 6. Cholecystectomy. PAST MEDICAL HISTORY: 1. Localized bladder cancer, high-grade, T2. 2. History of prostate cancer treated with radiation therapy. 3. Peripheral vascular disease with amputation, left leg. 4. Diabetes. 5. Recurrent encephalopathy. MEDICATIONS: Current medications: 1. Piperacillin / tazobactam. 2. Norvasc. 3. Lipitor. 4. Lopressor. 5. Latanoprost eye drops. ALLERGIES: 1. MELL INHIBITORS. 2. QUINAPRIL. FAMILY HISTORY: Noncontributory. REVIEW OF SYSTEMS: Impossible to obtain. The patient is unaware of why he is in the hospital. He is unaware of the fact that he is in the hospital and he thinks he is still in [place]. PHYSICAL EXAMINATION: GENERAL: The physical exam reveals a frail gentleman. He is in restraints. VITAL SIGNS: Blood pressure 135/70, respiratory rate 16, pulse 75 afebrile. O2 sat is 96%. HEAD, EYES, EARS, NOSE, THROAT: Head is normocephalic. The sclerae and conjunctivae are normal. Oropharynx unremarkable. LYMPHATIC: No cervical, supraclavicular, axillary or inguinal adenopathy. ABDOMEN: Without hepatosplenomegaly. EXTREMITIES: Left above-knee amputation. Right leg without edema. NEUROLOGIC: The patient is awake, alert, he is confused. He is oriented to name but not time and place. He does not know who the President is. He does not realize he is in the hospital. ASSESSMENT: 1. The patient presents with a profound anemia with a hemoglobin 5.8, hematocrit 18, white count 18,000, platelets 337,000. He gives me a history of having hematuria. He has had a catheter in the bladder. I suspect that the anemia arises from bleeding from the bladder. He has not had any blood in his stools to-date. RECOMMENDATIONS: Would transfuse packed cells to bring the hemoglobin to the 9 to 10 range, or at least 8. 2. 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 He requires a cystectomy. He is too ill to have this performed now. 3. He, again, is encephalopathic. It is not obvious as to why. Neurology has seen him in the past. If his encephalopathy does not clear, it would be worth having another consult with neurology. If he continues to have bleeding from the bladder, I would recommend that urology again see him and consider cystoscopy to evaluate for residual tumor which may be responsible for his anemia. In addition at the time of evaluation it may be possible to remove the bulk of the remaining tumor if present. Hopefully his mental status will clear up in the next few days. Unfortunately it does not appear that he is ever going to undergo surgery unless he has a major change in cognitive function. Will also check a PSA given his previous history of prostate cancer, although there is nothing to suggest that this is a contributing event and his current studies, i.e., CT scan abdomen and pelvis and chest x-ray do not show any bony metastatic disease. MD OMERO Galvan/JAVIER /12:59 PM /2:23 PM KAMERON
[2017-03-05] MEDS: LATANOPROST 0.005% OPHT SOLN 2.5 ML BTL RIGHT EYE SCH (21:36)
--- NOTE | 2017-03-05 22:00 | EKG ---
Date Performed: 03/04/2017 Time Performed: 17:58:50 PTAGE: 76 years EKG: SINUS BRADYCARDIA NONSPECIFIC T-WAVE ABNORMALITY ABNORMAL ECG PREVIOUS TRACING : 02/10/2017 07.24 Compared to the previous tracing bradycardia now present DOCTOR: Uriel Castellanos Interpretating Date/Time 03/07/2017 07:05:30
[2017-03-05] MEDS: VANCOMYCIN INJ 1,250 MG in SODIUM CHLOR 0.9% 250 ML INJ 250 ML IV SCH (23:59)
[2017-03-06] VITALS (9 sets, daily range): BP systolic 125–148; BP diastolic 52–68; PULSE 75–84; RESP 19–34; TEMP 97.7–98.7; O2SAT 83–97
[2017-03-06] MEDS: PIPERACIL-TAZO 4.5 GM PREMIX 100 ML IV SCH ×4 (00:55→18:17)
--- NOTE | 2017-03-06 01:40 | RADRPT ---
EXAM DATE/TIME: 03/06/2017 01:20 [facility] COMPARISON: CHEST SINGLE AP, March 04, 2017, 17:14. INDICATIONS : Hypoxia MEDICAL HISTORY : Stroke. Carcinoma, bladder. Hypertension.diabetes SURGICAL HISTORY : Cholecystectomy. thyroid surgery ENCOUNTER: Subsequent ACUITY: 2 days PAIN SCORE: 0/10 LOCATION: Bilateral chest FINDINGS: There is slight cardiomegaly and perivascular pulmonary edema. Focal consolidation in the right lung base is difficult to exclude. Right IJ [id number] is present with tip overlapping the expected reg ion of the SVC. CONCLUSION: Probable mild pulmonary edema. Arturo Mariscal MD on March 06, 2017 at 1:37 Board Certified Radiologist. This report was verified electronically.
[2017-03-06] MEDS ORDERED: FUROSEMIDE 40 MG/4 ML VIAL IV PUSH ONE ×2 (01:45→19:15)
[2017-03-06] MEDS: SODIUM CHLORIDE 0.9% FLUSH 10 ML FLUSH IV FLUSH PRN ×2 (01:53→14:09)
[2017-03-06 05:15] LABS: AUTOMATED NEUTROPHIL # 10.8 TH/MM3 (1.8-7.7); BASOPHIL % 0.3 % (0.0-2.0); EOSINOPHIL # 0.2 TH/MM3 (0-0.4); EOSINOPHIL % 1.3 % (0.0-4.0); HEMATOCRIT 24.9 % (39.0-51.0); LYMPH % 6.3 % (9.0-44.0); LYMPHOCYTE # 0.8 TH/MM3 (1.0-4.8); MEAN CELL VOLUME 86.5 FL (80.0-100.0); MEAN CORPUSCULAR HEMOGLOBIN 27.9 PG (27.0-34.0); MEAN CORPUSCULAR HGB CONC 32.3 % (32.0-36.0); MEAN PLATELET VOLUME 7.6 FL (7.0-11.0); MONO % 8.9 % (0.0-8.0); MONOCYTE # 1.2 TH/MM3 (0-0.9); NEUT % 83.2 % (16.0-70.0); PLATELET COUNT 427 TH/MM3 (150-450); RED BLOOD COUNT 2.88 MIL/MM3 (4.50-5.90); RED CELL DISTRIBUTION WIDTH 17.5 % (11.6-17.2)
[2017-03-06 06:16] LABS: CALCIUM 8.1 MG/DL (8.5-10.1); CREATININE 1.15 MG/DL (0.60-1.30)
[2017-03-06 07:46] LABS: BANDS 8 % (0-6); CORRECTED NUCLEATED RBC 1 /100 WBC (0-0); LYMPHOCYTES 3 % (9-44); MONOCYTES 3 % (0-8); MYELOCYTES 1 % (0-0); NUCLEATED RED BLOOD CELL 1 (0-0); POLYS (SEG NEUTROPHILS) 82 % (16-70); PROMYELOCYTES 1 % (0-0)
--- NOTE | 2017-03-06 09:20 | PD.ONC.PN ---
Subjective Subjective Remarks confused and thinks I am the son of a friend of his. He has no idea where he is . Objective Data Date Time Temp Pulse Resp B/P (MAP) Pulse Ox O2 Delivery O2 Flow Rate FiO2 03/06/17 04:06 98.7 84 20 148/68 (94) 94 03/06/17 00:32 81 03/06/17 00:01 98.2 80 20 146/63 (90) 91 03/05/17 21:20 97.4 88 16 139/80 (99) 92 03/05/17 19:40 93 03/05/17 15:15 98.0 83 16 141/64 (89) 95 03/05/17 11:36 97.5 75 16 134/77 (96) 96 03/06/17 03/06/17 03/06/17 07:00 15:00 23:00 Intake Total 1000 ml 105 ml Output Total 2300 ml Balance -1300 ml 105 ml Result Diagram: 03/06/17 0400 03/06/17 0400 Laboratory Results Laboratory Tests Test 03/05/17 10:55 03/06/17 04:00 White Blood Count 17.1 TH/MM3 13.0 TH/MM3 Red Blood Count 2.74 MIL/MM3 2.88 MIL/MM3 Hemoglobin 7.9 GM/DL 8.0 GM/DL Hematocrit 23.7 % 24.9 % Mean Corpuscular Volume 86.5 FL 86.5 FL Mean Corpuscular Hemoglobin 28.8 PG 27.9 PG Mean Corpuscular Hemoglobin Concent 33.2 % 32.3 % Red Cell Distribution Width 17.0 % 17.5 % Platelet Count 376 TH/MM3 427 TH/MM3 Mean Platelet Volume 7.9 FL 7.6 FL Neutrophils (%) (Auto) 80.1 % 83.2 % Lymphocytes (%) (Auto) 9.1 % 6.3 % Monocytes (%) (Auto) 10.0 % 8.9 % Eosinophils (%) (Auto) 0.8 % 1.3 % Basophils (%) (Auto) 0.0 % 0.3 % Neutrophils # (Auto) 13.7 TH/MM3 10.8 TH/MM3 Lymphocytes # (Auto) 1.6 TH/MM3 0.8 TH/MM3 Monocytes # (Auto) 1.7 TH/MM3 1.2 TH/MM3 Eosinophils # (Auto) 0.1 TH/MM3 0.2 TH/MM3 Basophils # (Auto) 0.0 TH/MM3 0.0 TH/MM3 CBC Comment AUTO DIFF AUTO DIFF Differential Comment AUTO DIFF CONFIRMED FINAL DIFF MANUAL Platelet Estimate NORMAL NORMAL Platelet Morphology Comment NORMAL NORMAL Red Cell Morphology Comment NORMAL Differential Total Cells Counted 100 Neutrophils % (Manual) 82 % Band Neutrophils % 8 % Lymphocytes % 3 % Monocytes % 3 % Eosinophils % 2 % Neutrophils # (Manual) 12.0 TH/MM3 Myelocytes 1 % Promyelocytes 1 % Nucleated Red Blood Cells 1 /100 WBC Blood Urea Nitrogen 46 MG/DL Creatinine 1.15 MG/DL Random Glucose 109 MG/DL Calcium Level 8.1 MG/DL Sodium Level 147 MEQ/L Potassium Level 3.9 MEQ/L Chloride Level 116 MEQ/L Carbon Dioxide Level 22.0 MEQ/L Anion Gap 9 MEQ/L Estimat Glomerular Filtration Rate 62 ML/MIN Ferritin 785 NG/ML Prostate Specific Antigen 0.91 NG/ML Vitamin B12 Level 397 PG/ML Culture Results Microbiology Date/Time Source Procedure Growth Status 03/04/17 17:04 Blood Peripheral Aerobic Blood Culture - Preliminary NO GROWTH IN 1 DAY Resulted 03/04/17 17:04 Blood Peripheral Anaerobic Blood Culture - Preliminary NO GROWTH IN 1 DAY Resulted 03/04/17 16:54 Blood Peripheral Aerobic Blood Culture - Preliminary NO GROWTH IN 1 DAY Resulted 03/04/17 16:54 Blood Peripheral Anaerobic Blood Culture - Preliminary NO GROWTH IN 1 DAY Resulted 03/04/17 20:50 Nasal Washing Influenza Types A,B Antigen (SANGEETA) - Final NEGATIVE FOR FLU A AND B ANTIGEN.... Complete 03/04/17 17:32 Urine Clean Catch Urine Culture - Final Staphylococcus Aureus Complete 03/05/17 03:35 Abscess Leg Gram Stain - Final Resulted 03/05/17 03:35 Abscess Leg Wound Culture Pending Resulted Imaging Studies Last 24 hours Impressions Chest X-Ray 03/06/17 0000 Signed Impressions: Service Date/Time: Monday, March 06, 2017 01:20 - CONCLUSION: Probable mild pulmonary edema. Arturo Mariscal MD Administered Medications Medications (Trade) Dose Ordered Sig/Myrna Route PRN Reason Start Time Stop Time Status Last Admin Dose Admin Sodium Chloride (NS Flush) 2 ml UNSCH PRN IV FLUSH FLUSH AFTER USING IV ACCESS 03/04/17 21:00 03/06/17 01:53 Sodium Chloride (NS Flush) 2 ml BID IV FLUSH 03/04/17 21:00 03/05/17 21:41 Amlodipine Besylate (Norvasc) 10 mg DAILY PO 03/05/17 09:00 03/05/17 09:44 Atorvastatin Calcium (Lipitor) 20 mg DAILY PO 03/05/17 09:00 03/05/17 09:44 Dorzolamide HCl (Trusopt 2% Opth Soln) 1 drop BID RIGHT EYE 03/04/17 21:00 03/05/17 21:36 Latanoprost (Xalatan 0.005% Opth Soln) 1 drop HS RIGHT EYE 03/04/17 21:00 03/05/17 21:36 Metoprolol Tartrate (Lopressor) 50 mg Q12HR PO 03/04/17 21:00 03/05/17 21:41 Piperacillin Sod/ Tazobactam Sod 100 ml @ 200 mls/hr Q6H IV 03/05/17 00:00 03/06/17 06:16 Vancomycin HCl 1250 mg/Sodium Chloride 262.5 ml @ 250 mls/hr Q18H IV 03/06/17 00:00 03/05/17 23:59 Objective Remarks GENERAL: awake alert and not oriented. SKIN: Warm and dry. HEAD: Normocephalic. EYES: No scleral icterus. No injection or drainage. NECK: Supple, trachea midline. No JVD or lymphadenopathy. LYMPHATIC: No adenopathy. CARDIOVASCULAR: Regular rate and rhythm without murmurs. RESPIRATORY: Breath sounds equal bilaterally. No accessory muscle use. GASTROINTESTINAL: Abdomen soft, non-tender, nondistended. EXTREMITIES: left leg amputation MUSCULOSKELETAL: Adequate muscle tone. NEUROLOGICAL: No obvious focal deficit. Awake, alert, and oriented x 1 PSYCHIATRIC: no judgement. Assessment/Plan Assessment 1: bladder cancer- reevaluate bladder with cysto when more stable 2: recurrent debilitation encephalopathy poorly explained. ? dementia. will ask neuro to see again 3: anemia- presumed to be due to hematuria but not entirely sure. will follow cbc plat. 4: hx of prostate cancer- not active problem. Sonu Stack MD Mar 06, 2017 09:20
[2017-03-06] MEDS: ATORVASTATIN 20 MG TAB PO SCH (09:28)
[2017-03-06] MEDS: METOPROLOL TARTRATE 50 MG TAB PO SCH ×2 (09:28→20:53)
[2017-03-06] MEDS: SODIUM CHLORIDE 0.9% FLUSH 10 ML FLUSH IV FLUSH SCH ×2 (09:30→20:53)
[2017-03-06] MEDS: DORZOLAMIDE 2% OPTH SOLN 200 DROP/10 ML BTLO RIGHT EYE SCH ×2 (09:32→20:53)
--- NOTE | 2017-03-06 10:51 | PD.CONS ---
History of Present Illness Service Neurology Consult Requested By onc Reason for Consult mental status Primary Care Physician Unknown History of Present Illness 76-year-old male admitted for mental status changes. hx of dm with 2/2 complications, bladder cancer. hgb 5.8 hypothermia with temp of 94.3 on admit. has leukocytosis and being tx'd for uti and pneumonia by the medical team. currently, he denies any vision loss, new focal weakness. he thinks he is in [place]. He is aware he has bladder cancer. mild frontal carrillo. pt seen by neurology earlier this month and had extensive testing performed. 03/05/17 mri brain no acute lesion. 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 Denies alcohol or illicit drugs. 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 benazepril (Unverified Adverse Reaction, Intermediate, Cough, 02/06/17) captopril (Unverified Adverse Reaction, Intermediate, Cough, 02/06/17) enalaprilat (Unverified Adverse Reaction, Intermediate, Cough, 02/06/17) fosinopril (Unverified Adverse Reaction, Intermediate, Cough, 02/06/17) lisinopril (Unverified Adverse Reaction, Intermediate, Cough, 02/06/17) quinapril (Unverified Adverse Reaction, Intermediate, Cough, 02/06/17) Active Ordered Medications Current Medications Medications (Trade) Dose Ordered Sig/Myrna Route Start Time Stop Time Status Last Admin (NS Flush) 2 ml UNSCH PRN IV FLUSH 03/04/17 21:00 03/06/17 01:53 (NS Flush) 2 ml BID IV FLUSH 03/04/17 21:00 03/06/17 09:30 (Tylenol) 650 mg Q4H PRN PO 03/04/17 21:00 (Zofran Inj) 4 mg Q6H PRN IVP 03/04/17 21:00 (Narcan Inj) 0.4 mg UNSCH PRN IV PUSH 03/04/17 21:00 (Milk Of Magnesia Liq) 30 ml Q12H PRN PO 03/04/17 21:00 (Norvasc) 10 mg DAILY PO 03/05/17 09:00 03/06/17 09:28 (Lipitor) 20 mg DAILY PO 03/05/17 09:00 03/06/17 09:28 (Trusopt 2% Opth Soln) 1 drop BID RIGHT EYE 03/04/17 21:00 03/06/17 09:32 (Xalatan 0.005% Opth Soln) 1 drop HS RIGHT EYE 03/04/17 21:00 03/05/17 21:36 (Lopressor) 50 mg Q12HR PO 03/04/17 21:00 03/06/17 09:28 Pharmacy Profile Note 0 ml @ 0 mls/hr UNSCH OTHER 03/05/17 00:00 Piperacillin Sod/ Tazobactam Sod 100 ml @ 200 mls/hr Q6H IV 03/05/17 00:00 03/06/17 06:16 Vancomycin HCl 1250 mg/Sodium Chloride 262.5 ml @ 250 mls/hr Q18H IV 03/06/17 00:00 03/05/17 23:59 Miscellaneous Information SPECIFIC LAB TO BE DRAWN:VANCO DATE TO... ONCE ONCE .XX 03/07/17 11:45 03/07/17 11:46 (Duoneb Neb) 1 ampule Q4HR NEB PRN NEB 12/25/17 01:15 Exam I&O / VS 03/06/17 03/06/17 03/07/17 15:00 23:00 07:00 Intake Total 105 ml Balance 105 ml IV Total 105 ml Vital Signs Date Time Temp Pulse Resp B/P (MAP) Pulse Ox O2 Delivery O2 Flow Rate FiO2 03/06/17 04:06 98.7 84 20 148/68 (94) 94 03/06/17 00:32 81 03/06/17 00:01 98.2 80 20 146/63 (90) 91 03/05/17 21:20 97.4 88 16 139/80 (99) 92 03/05/17 19:40 93 03/05/17 15:15 98.0 83 16 141/64 (89) 95 03/05/17 11:36 97.5 75 16 134/77 (96) 96 General: No acute distress Eye: EOMI Respiratory: Non-labored respirations Cardiology: Normal rate Neurologic: Alert Psychiatric: Cooperative Exam Comments ox 1-2. 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 impaired short-term memory, eomi, vff, face sym, left bka, rt le distal reduced pin, neck supple Review/Management Diagnosis/Plan: (1) Metabolic encephalopathy ICD Codes: G93.41 - Metabolic encephalopathy Status: Acute Plan: acute on chronic encephalopathy multiple current medical reasons to explain his altered mental status. his mental status appears improved compared to what i have read in the chart. this may be 2/2 iv abx vs delirium infection/anemia/hypothermia/SIRS he may be developing mild cognitive impairment/dementia, however, this dx cannot be adequately made until all infections, metabolic derangements have been treated. further outpatient cognitive testing will be helpful will repeat eeg follow peripherally (2) Catheter-associated urinary tract infection ICD Codes: T83.511A - Infection and inflammatory reaction due to indwelling urethral catheter, initial encounter; N39.0 - Urinary tract infection, site not specified Status: Acute (3) Bladder cancer ICD Codes: C67.9 - Malignant neoplasm of bladder, unspecified Status: Acute (4) Hypothermia ICD Codes: T68.XXXA - Hypothermia, initial encounter Status: Acute Problem Qualifiers (1) Bladder cancer: Qualified Codes: C67.9 - Malignant neoplasm of bladder, unspecified (2) Hypothermia: Qualified Codes: T68.XXXA - Hypothermia, initial encounter Jaylen Dennis MD Mar 06, 2017 10:51
--- NOTE | 2017-03-06 11:05 | HHI.PR ---
Subjective Remarks Follow-up anemia of chronic disease/metabolic encephalopathy/UTI 03/05/17-patient seen and examined, patient is confused however oriented to self , date of as well as Place of . 03/06/17-patient seen and examined, although patient is confused he is much more alert today. Patient thinks he is in [place] Objective Vitals Vital Signs Date Time Temp Pulse Resp B/P (MAP) Pulse Ox O2 Delivery O2 Flow Rate FiO2 03/06/17 04:06 98.7 84 20 148/68 (94) 94 03/06/17 00:32 81 03/06/17 00:01 98.2 80 20 146/63 (90) 91 03/05/17 21:20 97.4 88 16 139/80 (99) 92 03/05/17 19:40 93 03/05/17 15:15 98.0 83 16 141/64 (89) 95 03/05/17 11:36 97.5 75 16 134/77 (96) 96 I/O 03/05/17 03/05/17 03/05/17 03/06/17 03/06/17 03/06/17 07:00 15:00 23:00 07:00 15:00 23:00 Intake Total 720 ml 620 ml 1000 ml 105 ml Output Total 400 ml 625 ml 2300 ml Balance 320 ml -5 ml -1300 ml 105 ml Intake Oral 120 ml 620 ml 625 ml IV Total 200 ml 375 ml 105 ml Packed Cells 400 ml Output Urine Total 400 ml 625 ml 2300 ml # Bowel Movements 1 Result Diagram: 03/06/17 0400 03/06/17 0400 Imaging Last Impressions Chest X-Ray 03/06/17 0000 Signed Impressions: Service Date/Time: Monday, March 06, 2017 01:20 - CONCLUSION: Probable mild pulmonary edema. Arturo Mariscal MD Brain MRI 03/05/17 0000 Signed Impressions: Service Date/Time: Sunday, March 05, 2017 11:28 - CONCLUSION: Moderate motion artifact. Negative for acute ischemic event. Atrophy with periventricular changes. Bennett Ibarra MD FACR Abdomen/Pelvis CT 03/04/17 2732 Signed Impressions: Service Date/Time: Saturday, March 04, 2017 18:28 - CONCLUSION: 1. Bilateral pleural effusions small to moderate in size. 2. No acute findings in the abdomen and pelvis. Corby Melendez MD Head CT 03/04/17 3137 Signed Impressions: Service Date/Time: Saturday, March 04, 2017 18:18 - CONCLUSION: No acute intracranial findings. Partial opacification of right sided mastoid air cells new. Corby Melendez MD Objective Remarks GENERAL: NAD with upper restraints in place SKIN: Warm and dry. HEAD: Normocephalic. EYES: No scleral icterus. No injection or drainage. NECK: Supple, trachea midline. No JVD or lymphadenopathy. CARDIOVASCULAR: Regular rate and rhythm without murmurs, gallops, or rubs. RESPIRATORY: Breath sounds equal bilaterally. No accessory muscle use. GASTROINTESTINAL: Abdomen soft, non-tender, nondistended. MUSCULOSKELETAL: No cyanosis, or edema. BACK: Nontender without obvious deformity. No CVA tenderness. A/P Problem List: (1) Catheter-associated urinary tract infection ICD Code: T83.511A - Infection and inflammatory reaction due to indwelling urethral catheter, initial encounter; N39.0 - Urinary tract infection, site not specified Status: Acute (2) Metabolic encephalopathy ICD Code: G93.41 - Metabolic encephalopathy Status: Acute Assessment and Plan 76 year-old man with 1. Severe anemia of chronic disease Transfused 2 units PRBCs Hemoccult negative in the ED Continue to monitor H&H 2. Catheter associated UTI-Escherichia coli Continue with Zosyn and switch to by mouth Bactrim in a.m. Patient with chronic Caballero, changed in the ED 3. Hypothermia Bear hugger placed in ED Monitor internal temp with Caballero May be 2/2 sepsis [address]. Met[address] head with no acute findings Brain MRI noted and review by me Appreciate input from neurology pending repeat EEG Treatment for UTI/PNA as below Attempt today to remove upper extremity restrains 5. Healthcare acquired PNA/Sepsis/UTI Continue with Vanc/Zosyn Blood cultures pending 6. Bladder cancer Oncology consulted, appreciate recommendations Patient may need cystoscopy when medically stable 7. Insulin-dependent diabetes mellitus Holding home Lantus SSI Monitor blood glucose 8. Hypertension/hyperlipidemia Continue home medications 9. History of prostate cancer PSA within normal limits Patient not currently on any chemotherapy, will transfer to Jeffy Wayne MD Mar 06, 2017 11:05
[2017-03-06] MEDS: VANCOMYCIN INJ 1,250 MG in SODIUM CHLOR 0.9% 250 ML INJ 250 ML IV SCH (18:00)
[2017-03-06] MEDS: RESP: ALBUTEROL 2.5 MG/IPRATROPIUM 0.5 MG NEB (PRN) NEB (18:46)
[2017-03-06] MEDS ORDERED: methylPREDNISolone SOD SUCC 125 MG/2 ML VIAL IV ONE (19:15)
--- NOTE | 2017-03-06 19:23 | RADRPT ---
EXAM DATE/TIME: 03/06/2017 18:51 [facility] COMPARISON: CHEST SINGLE AP, March 06, 2017, 1:20. INDICATIONS : Respiratory distress MEDICAL HISTORY : Stroke. Carcinoma, bladder. Hypertension.diabetes SURGICAL HISTORY : Cholecystectomy. thyroid surgery ENCOUNTER: Initial ACUITY: 1 day PAIN SCORE: Non-responsive. LOCATION: Bilateral chest FINDINGS: Single AP view of the chest. Right-sided [id number] remains in place. There is mild bilateral cornel hilar opacity and pulmonary vasculature indistinctness suggesting mild pulmonary edema. Slight increa se in the prior study. CONCLUSION: Mild pulmonary edema with slight increase from the prior study. Corby Melendez MD on March 06, 2017 at 19:21 Board Certified Radiologist. This report was verified electronically.
--- NOTE | 2017-03-06 19:32 | HHI.FPPN ---
Addendum to progress note ADDENDUM Reason for addendum: Additonal documentation Additional information LAYA NOTE: Laya called at 18:55PM Subjective: 76 y/o M, pmhx of severe anemia and recent transfusions, SIRS, AMS of unknown origin, and HCAP was recently transferred from [facility] to [facility] and Laya was called for respiratory distress. The nurse walked in and noticed all the tubing to the oxygen was tangled and the pt was using increased effort to breathe with a respiratory rate 58 and oxygen saturation of 84% . The patient has been on 3 L of nasal cannula and has been saturating 91-97% before the transfer to supplement his oxygenation while he is being treated for HCAP. He has had worsening mental status over the last week and a half that has been worked up by the medicine team, the neurologist, and oncologist. The son is present and states that the mental status of the patient has been getting progressively worse every day. Upon questioning the patient states that he feels fine. He is oriented 1. Patient is getting a DuoNeb treatment while we're in the room, and he seems to be more relaxed after the treatment. Objective: Vitals: Temp 97.8, O2 sat 96% (84%), RR 44 (58), BP 146/72 PE: GENERAL: Patient does appear to be in respiratory distress while getting the DuoNeb treatment, however he is able to speak comfortably throughout this time, patient is improved after breathing treatment SKIN: Warm and dry, cap refill >2s. HEAD: Normocephalic. EYES: No scleral icterus. No injection or drainage. NECK: Supple, trachea midline. No JVD or lymphadenopathy. CARDIOVASCULAR: Regular rate and rhythm without murmurs, gallops, or rubs. RESPIRATORY: Breath sounds equal bilaterally. No accessory muscle use. wheezing and coarse crackles heard throughout GASTROINTESTINAL: Abdomen soft, non-tender, nondistended. MUSCULOSKELETAL: No cyanosis, or edema. BACK: Nontender without obvious deformity. No CVA tenderness. A/P: 76-year-old male being treated for hospital-acquired pneumonia and undergoing evaluation for altered mental status over the past week presents with desaturations following nasal cannula tubing dysfunction. Patient is improved following breathing treatments; vitals stable, chest x-ray stable in comparison to prior chest x-rays. -Furosemide 40 mg IV push now -Methylprednisone 125 mg IV push now -Stat Accu check and ABG -We will recommend that the patient is nothing by mouth until vitals are stable in situation resolved -Transfer patient to ICU -Dr. Fagan, medicine attending, aware and agrees with plan Cadence Almonte MD R2 Mar 06, 2017 19:32
[2017-03-06] MEDS: LATANOPROST 0.005% OPHT SOLN 2.5 ML BTL RIGHT EYE SCH (20:53)
[2017-03-07] VITALS (22 sets, daily range): BP systolic 116–164; BP diastolic 53–112; PULSE 66–75; RESP 24–33; TEMP 98–98.7; O2SAT 94–98
[2017-03-07] MEDS: PIPERACIL-TAZO 4.5 GM PREMIX 100 ML IV SCH ×4 (00:27→18:00)
[2017-03-07 04:24] LABS: BASOPHIL % 0.1 % (0.0-2.0); LYMPH % 4.7 % (9.0-44.0); LYMPHOCYTE # 0.8 TH/MM3 (1.0-4.8); MEAN CELL VOLUME 88.4 FL (80.0-100.0); MEAN CORPUSCULAR HEMOGLOBIN 29.5 PG (27.0-34.0); MEAN CORPUSCULAR HGB CONC 33.3 % (32.0-36.0); MEAN PLATELET VOLUME 7.5 FL (7.0-11.0); MONO % 1.5 % (0.0-8.0); MONOCYTE # 0.2 TH/MM3 (0-0.9); NEUT % 93.7 % (16.0-70.0); PLATELET COUNT 417 TH/MM3 (150-450); RED BLOOD COUNT 2.71 MIL/MM3 (4.50-5.90); RED CELL DISTRIBUTION WIDTH 17.8 % (11.6-17.2); WHITE BLOOD COUNT 16.1 TH/MM3 (4.0-11.0)
[2017-03-07 04:38] LABS: BICARBONATE 19.2 MEQ/L (21.0-32.0); CALCIUM 7.9 MG/DL (8.5-10.1); CREATININE 1.4 MG/DL (0.60-1.30)
[2017-03-07] MEDS: POTASSIUM CHLORIDE 10 MEQ CAP PO SCH (08:38)
[2017-03-07] MEDS: METOPROLOL TARTRATE 50 MG TAB PO SCH ×3 (08:39→21:00)
[2017-03-07] MEDS: SODIUM CHLORIDE 0.9% FLUSH 10 ML FLUSH IV FLUSH SCH ×2 (08:39→20:14)
[2017-03-07] MEDS: FUROSEMIDE 20 MG/2 ML VIAL IV PUSH SCH ×2 (08:39→18:00)
[2017-03-07] MEDS: ATORVASTATIN 20 MG TAB PO SCH (08:39)
[2017-03-07] MEDS: DORZOLAMIDE 2% OPTH SOLN 200 DROP/10 ML BTLO RIGHT EYE SCH ×2 (08:40→20:14)
[2017-03-07] MEDS: INSULIN DETEMIR 100 UNITS/ML VIAL SQ SCH (08:40)
--- NOTE | 2017-03-07 11:17 | HHI.PR ---
Subjective Remarks Follow-up anemia of chronic disease/metabolic encephalopathy/UTI 03/05/17-patient seen and examined, patient is confused however oriented to self , date of as well as Place of . 03/06/17-patient seen and examined, although patient is confused he is much more alert today. Patient thinks he is in [place] 03/07/17-patient seen and examined,Halicat was: Patient yesterday around 6:30 PM secondary to acute hypoxemia and respiratory distress for which patient was treated with and responded well to Lasix, Solu-Medrol. He was transferred to [facility]. Although patient is alert but he is pleasantly confused. Vital remain stable Objective Vitals Vital Signs Date Time Temp Pulse Resp B/P (MAP) Pulse Ox O2 Delivery O2 Flow Rate FiO2 03/07/17 06:00 72 03/07/17 04:01 98.3 74 27 145/112 (123) 98 03/07/17 04:00 75 03/07/17 02:00 73 03/07/17 00:00 73 03/07/17 00:00 98.1 73 27 116/53 (74) 96 03/06/17 22:00 75 03/06/17 20:00 77 03/06/17 20:00 98.0 77 34 140/63 (88) 95 03/06/17 20:00 96 Nasal Cannula 3.00 03/06/17 18:46 95 Nasal Cannula 3.50 03/06/17 18:45 83 21 03/06/17 15:37 98.4 75 20 143/54 (83) 97 03/06/17 12:20 93 Nasal Cannula 3.00 03/06/17 12:10 97.7 79 19 125/52 (76) 83 I/O 03/06/17 03/06/17 03/06/17 03/07/17 03/07/17 03/07/17 07:00 15:00 23:00 07:00 15:00 23:00 Intake Total 1000 ml 105 ml 250 ml 130 ml Output Total 2300 ml 1250 ml 1650 ml Balance -1300 ml 105 ml -1000 ml -1520 ml Intake Oral 625 ml 30 ml IV Total 375 ml 105 ml 250 ml 100 ml Output Urine Total 2300 ml 1250 ml 1650 ml # Bowel Movements 1 0 Result Diagram: 03/07/17 0320 03/07/17 0320 Imaging Last Impressions Chest X-Ray 03/06/17 0000 Signed Impressions: Service Date/Time: Monday, March 06, 2017 18:51 - CONCLUSION: Mild pulmonary edema with slight increase from the prior study. Corby Melendez MD Brain MRI 03/05/17 0000 Signed Impressions: Service Date/Time: Sunday, March 05, 2017 11:28 - CONCLUSION: Moderate motion artifact. Negative for acute ischemic event. Atrophy with periventricular changes. Bennett Ibarra MD FACR Abdomen/Pelvis CT 03/04/17 1742 Signed Impressions: Service Date/Time: Saturday, March 04, 2017 18:28 - CONCLUSION: 1. Bilateral pleural effusions small to moderate in size. 2. No acute findings in the abdomen and pelvis. Corby Melendez MD Head CT 03/04/17 1732 Signed Impressions: Service Date/Time: Saturday, March 04, 2017 18:18 - CONCLUSION: No acute intracranial findings. Partial opacification of right sided mastoid air cells new. Corby Melendez MD Objective Remarks GENERAL: NAD with upper restraints in place SKIN: Warm and dry. HEAD: Normocephalic. EYES: No scleral icterus. No injection or drainage. NECK: Supple, trachea midline. No JVD or lymphadenopathy. CARDIOVASCULAR: Regular rate and rhythm without murmurs, gallops, or rubs. RESPIRATORY: Breath sounds equal bilaterally. No accessory muscle use. GASTROINTESTINAL: Abdomen soft, non-tender, nondistended. MUSCULOSKELETAL: No cyanosis, or edema. BACK: Nontender without obvious deformity. No CVA tenderness. A/P Problem List: (1) Catheter-associated urinary tract infection ICD Code: T83.511A - Infection and inflammatory reaction due to indwelling urethral catheter, initial encounter; N39.0 - Urinary tract infection, site not specified Status: Acute (2) Metabolic encephalopathy ICD Code: G93.41 - Metabolic encephalopathy Status: Acute Assessment and Plan 76 year-old man with 1. Severe anemia of chronic disease Transfused 2 units PRBCs Hemoccult negative in the ED Continue to monitor H&H 2. Catheter associated UTI-Escherichia coli Continue with Zosyn and switch to by mouth Bactrim in a.m. Patient with chronic Caballero, changed in the ED 3. Hypothermia Resolved 4. Metabolic encephalopathy CT head with no acute findings Brain MRI noted and review by me Appreciate input from neurology pending repeat EEG Treatment for UTI/PNA as below Attempt today to remove upper extremity restrains 5. Healthcare acquired PNA/Sepsis/UTI Continue with Vanc/Zosyn Blood cultures NTD 6. Bladder cancer Oncology consulted, appreciate recommendations Patient may need cystoscopy when medically stable 7. Insulin-dependent diabetes mellitus Continue home Lantus,SSI Monitor blood glucose 8. Hypertension/hyperlipidemia Continue home medications 9. History of prostate cancer PSA within normal limits 10. Respiratory distress with hypoxemia Resolved, status post treatment with Lasix and Solu-Medrol 03/06/17 CHF of unknown type BNP elevated Chest x-ray noted and review by me with finding of mild pulmonary edema Currently on Lasix IV 20 mg twice a day pending 2-D Jeffy Schwartz MD Mar 07, 2017 11:17
[2017-03-07] MEDS ORDERED: PHARMACY ORDERED LAB ONE (11:45)
[2017-03-07] MEDS: VANCOMYCIN INJ 1,250 MG in SODIUM CHLOR 0.9% 250 ML INJ 250 ML IV SCH (14:05)
--- NOTE | 2017-03-07 14:55 | PD.WCN.NOT ---
Wound Consult Description: Wound consult ordered by Nakia MCCULLOUGH for Left buttock/adams Communicated with: Terra Frank RN 5th floor. Recommendation: 1) Please reposition patient every 2 hours for comfort and offloading.Only use disposable moisture control underpad. 2) Cleanse R lower extremity (knee,pretibial) intact scabs with normal saline , pat dry. Skin prep BID 3) Cleanse Coccyx wound with normal saline pat dry apply Calazime BID or after bowel movement. Additional Information: Patient was [place] today by property underwriter [place] 5th [place] [facility] [place] Frank [place] present with property underwriter for assistance.Patient alert in bed to self only. Skin assessment performed Right lower extremity has intact scab to knee measuring 1.2cm x1.6cm no drainage or odor noted.Two pressure related injuries to R pretibial proximal measures 0.8cm x 1.4cm 100% intact yellow slough no drainage or odor, Distal pretibial measures 0.7cm x 1.4cm x yellow slough.wounds cleansed with normal saline pat dry, skin prep applied and covered with dry dressing signed and dated.Patient required max assist to reposition to left side. Midline Coccyx presents an unstageable pressure/moisture related injury measuring 2.2cm x 1.2cm x yellow slough,no drainage noted or odor.wound cleansed with normal saline pat dry generous amount of Calazime applied and patient repositioned to left side.moisture control underpad placed under patient.Patient tolerated wound care well though was resisting care from Terra TIDWELL. Jess Conway [facility] Mar 07, 2017 14:55
[2017-03-07] MEDS ORDERED: CHLORHEXIDINE GLUCONATE 2 % 1 PACK (2 CLOTHS)(extra cloths) TOPICAL PRN (17:00)
[2017-03-07] MEDS: LATANOPROST 0.005% OPHT SOLN 2.5 ML BTL RIGHT EYE SCH (20:14)
[2017-03-08] VITALS (17 sets, daily range): BP systolic 135–164; BP diastolic 61–112; PULSE 65–88; RESP 16–32; TEMP 97.5–98.5; O2SAT 88–99
[2017-03-08] MEDS: PIPERACIL-TAZO 4.5 GM PREMIX 100 ML IV SCH ×5 (00:03→23:46)
[2017-03-08] MEDS: CHLORHEXIDINE GLUCONATE 2 % 1 PACK (2 CLOTHS)(taper/protocol) TOPICAL SCH (01:00)
[2017-03-08 03:39] LABS: AUTOMATED NEUTROPHIL # 18.8 TH/MM3 (1.8-7.7); BASOPHIL % 0.1 % (0.0-2.0); HEMATOCRIT 22.4 % (39.0-51.0); HEMOGLOBIN 7.1 GM/DL (13.0-17.0); LYMPH % 6.5 % (9.0-44.0); LYMPHOCYTE # 1.4 TH/MM3 (1.0-4.8); MEAN CELL VOLUME 87.3 FL (80.0-100.0); MEAN CORPUSCULAR HEMOGLOBIN 27.8 PG (27.0-34.0); MEAN CORPUSCULAR HGB CONC 31.8 % (32.0-36.0); MEAN PLATELET VOLUME 7.3 FL (7.0-11.0); MONOCYTE # 1.8 TH/MM3 (0-0.9); NEUT % 85.4 % (16.0-70.0); PLATELET COUNT 412 TH/MM3 (150-450); RED BLOOD COUNT 2.56 MIL/MM3 (4.50-5.90); RED CELL DISTRIBUTION WIDTH 17.7 % (11.6-17.2)
[2017-03-08 03:59] LABS: CALCIUM 7.9 MG/DL (8.5-10.1); CREATININE 1.6 MG/DL (0.60-1.30)
--- NOTE | 2017-03-08 07:30 | HHI.PR ---
Review/Management Diagnosis/Plan: (1) Metabolic encephalopathy ICD Codes: G93.41 - Metabolic encephalopathy Status: Acute Plan: acute on chronic encephalopathy multiple current medical reasons to explain his altered mental status. his mental status appears improved compared to what i have read in the chart. this may be 2/2 iv abx vs delirium infection/anemia/hypothermia/SIRS/hypoxemia cxr- mild pulm edema he may be developing mild cognitive impairment/dementia, however, this dx cannot be adequately made until all infections, metabolic derangements have been treated. further outpatient cognitive testing will be helpful eeg-pending follow peripherally (2) Catheter-associated urinary tract infection ICD Codes: T83.511A - Infection and inflammatory reaction due to indwelling urethral catheter, initial encounter; N39.0 - Urinary tract infection, site not specified Status: Acute (3) Bladder cancer ICD Codes: C67.9 - Malignant neoplasm of bladder, unspecified Status: Acute (4) Hypothermia ICD Codes: T68.XXXA - Hypothermia, initial encounter Status: Acute Subjective Subjective Comments No acute events reported had resp distress 2 days ago and tx'd to icu No headache No chest pain Active Medications Current Medications Medications (Trade) Dose Ordered Sig/Myrna Route Start Time Stop Time Status Last Admin (NS Flush) 2 ml UNSCH PRN IV FLUSH 03/04/17 21:00 03/06/17 14:09 (NS Flush) 2 ml BID IV FLUSH 03/04/17 21:00 03/07/17 20:14 (Tylenol) 650 mg Q4H PRN PO 03/04/17 21:00 (Zofran Inj) 4 mg Q6H PRN IVP 03/04/17 21:00 (Narcan Inj) 0.4 mg UNSCH PRN IV PUSH 03/04/17 21:00 (Milk Of Magnesia Liq) 30 ml Q12H PRN PO 03/04/17 21:00 (Norvasc) 10 mg DAILY PO 03/05/17 09:00 03/07/17 08:38 (Lipitor) 20 mg DAILY PO 03/05/17 09:00 03/07/17 08:39 (Trusopt 2% Opth Soln) 1 drop BID RIGHT EYE 03/04/17 21:00 03/07/17 20:14 (Xalatan 0.005% Opth Soln) 1 drop HS RIGHT EYE 03/04/17 21:00 03/07/17 20:14 (Lopressor) 50 mg Q12HR PO 03/04/17 21:00 03/07/17 08:39 Pharmacy Profile Note 0 ml @ 0 mls/hr UNSCH OTHER 03/05/17 00:00 Piperacillin Sod/ Tazobactam Sod 100 ml @ 200 mls/hr Q6H IV 03/05/17 00:00 03/08/17 00:03 (Duoneb Neb) 1 ampule Q4HR NEB PRN NEB 03/06/17 01:15 03/06/17 18:46 (Lasix Inj) 20 mg BID@09,18 IV PUSH 03/07/17 09:00 03/07/17 18:00 (KCl) 10 meq DAILY PO 03/07/17 09:00 03/07/17 08:38 (Levemir Inj) 25 units DAILY SQ 03/07/17 09:00 03/07/17 08:40 Vancomycin HCl 1000 mg/Sodium Chloride 250 ml @ 250 mls/hr Q24H IV 03/08/17 18:00 Miscellaneous Information Patient in critical care unit? Ass... Q361D .XX 03/07/17 17:00 (Chlorhexidine 2% Cloth) 3 pack DAILY@04 TOPICAL 03/08/17 04:00 03/12/17 04:01 03/08/17 01:00 (Chlorhexidine 2% Cloth) 3 pack UNSCH PRN TOPICAL 03/07/17 17:00 03/12/17 16:48 Allergies Allergies Coded Allergies *MDRO Multi-Drug Resistant Organism (Verified Allergy, Unknown, 02/06/17) benazepril (Unverified Adverse Reaction, Intermediate, Cough, 02/06/17) captopril (Unverified Adverse Reaction, Intermediate, Cough, 02/06/17) enalaprilat (Unverified Adverse Reaction, Intermediate, Cough, 02/06/17) fosinopril (Unverified Adverse Reaction, Intermediate, Cough, 02/06/17) lisinopril (Unverified Adverse Reaction, Intermediate, Cough, 02/06/17) quinapril (Unverified Adverse Reaction, Intermediate, Cough, 02/06/17) Review of Systems All other ROS: ROS reviewed as documented in chart Exam I&O / VS Vital Signs Date Time Temp Pulse Resp B/P (MAP) Pulse Ox O2 Delivery O2 Flow Rate FiO2 03/08/17 06:00 70 03/08/17 04:31 96 Nasal Cannula 2.00 03/08/17 04:01 98.1 69 20 135/112 (120) 98 03/08/17 04:00 70 03/08/17 02:00 69 03/08/17 00:00 98.3 71 27 160/94 (116) 96 03/08/17 00:00 71 03/07/17 22:00 70 03/07/17 20:01 98.7 71 33 164/63 (96) 96 03/07/17 20:00 71 03/07/17 19:30 96 Nasal Cannula 2.00 03/07/17 19:00 98 Nasal Cannula 3.00 03/07/17 18:00 68 03/07/17 17:00 67 03/07/17 16:00 98.0 68 24 144/57 (86) 98 03/07/17 16:00 68 03/07/17 15:00 67 03/07/17 14:00 66 03/07/17 13:00 66 03/07/17 12:55 95 03/07/17 12:00 98.3 68 27 136/58 (84) 94 03/07/17 12:00 68 03/07/17 11:00 68 03/07/17 10:00 71 03/07/17 09:00 70 03/07/17 08:00 98 Nasal Cannula 3.00 03/07/17 08:00 74 03/07/17 08:00 98.0 74 26 153/63 (93) 97 General: No acute distress Eye: EOMI Respiratory: Non-labored respirations Cardiology: Normal rate Neurologic: Alert Psychiatric: Cooperative Exam Comments ox 1, mildy dyspneic, nasal cannula in place, resists pupillary exam, articulates, confused, can follow 1 step request at times, face sym, left bka, rt le distal reduced pin, neck supple Objective Micro and Labs Laboratory Tests Test 03/07/17 14:00 03/08/17 03:10 Vancomycin Level Trough 22.0 White Blood Count 22.0 Red Blood Count 2.56 Hemoglobin 7.1 Hematocrit 22.4 Mean Corpuscular Volume 87.3 Mean Corpuscular Hemoglobin 27.8 Mean Corpuscular Hemoglobin Concent 31.8 Red Cell Distribution Width 17.7 Platelet Count 412 Mean Platelet Volume 7.3 Neutrophils (%) (Auto) 85.4 Lymphocytes (%) (Auto) 6.5 Monocytes (%) (Auto) 8.0 Eosinophils (%) (Auto) 0.0 Basophils (%) (Auto) 0.1 Neutrophils # (Auto) 18.8 Lymphocytes # (Auto) 1.4 Monocytes # (Auto) 1.8 Eosinophils # (Auto) 0.0 Basophils # (Auto) 0.0 CBC Comment DIFF FINAL Differential Comment Blood Urea Nitrogen 76 Creatinine 1.60 Random Glucose 298 Calcium Level 7.9 Sodium Level 150 Potassium Level 3.7 Chloride Level 117 Carbon Dioxide Level 23.0 Anion Gap 10 Estimat Glomerular Filtration Rate 42 Random Vancomycin Level 30.0 Date/Time Source Procedure Growth Status 03/04/17 17:04 Blood Peripheral Aerobic Blood Culture - Preliminary NO GROWTH IN 3 DAYS Resulted 03/04/17 17:04 Blood Peripheral Anaerobic Blood Culture - Preliminary NO GROWTH IN 3 DAYS Resulted 03/04/17 20:50 Nasal Washing Influenza Types A,B Antigen (SANGEETA) - Final NEGATIVE FOR FLU A AND B ANTIGEN.... Complete 03/04/17 17:32 Urine Clean Catch Urine Culture - Final Staphylococcus Aureus Complete 03/05/17 03:35 Abscess Leg Gram Stain - Final Complete 03/05/17 03:35 Wound Culture - Final Staphylococcus Aureus Complete Problem Qualifiers (1) Bladder cancer: Qualified Codes: C67.9 - Malignant neoplasm of bladder, unspecified (2) Hypothermia: Qualified Codes: T68.XXXA - Hypothermia, initial encounter Jaylen Dennis MD Mar 08, 2017 07:30
[2017-03-08] MEDS: ATORVASTATIN 20 MG TAB PO SCH (08:50)
[2017-03-08] MEDS: POTASSIUM CHLORIDE 10 MEQ CAP PO SCH (08:50)
[2017-03-08] MEDS: METOPROLOL TARTRATE 50 MG TAB PO SCH ×2 (08:50→21:00)
[2017-03-08] MEDS: SODIUM CHLORIDE 0.9% FLUSH 10 ML FLUSH IV FLUSH SCH ×2 (08:51→21:01)
[2017-03-08] MEDS: FUROSEMIDE 20 MG/2 ML VIAL IV PUSH SCH ×2 (08:51→21:00)
[2017-03-08] MEDS: DORZOLAMIDE 2% OPTH SOLN 200 DROP/10 ML BTLO RIGHT EYE SCH ×2 (08:52→21:01)
[2017-03-08] MEDS: INSULIN DETEMIR 100 UNITS/ML VIAL SQ SCH (08:52)
[2017-03-08] MEDS ORDERED: DEXTROSE 50% IN WATER 50 ML SYRINGE ONE (09:04)
--- NOTE | 2017-03-08 10:55 | HHI.PR ---
Subjective Remarks Follow-up anemia of chronic disease/metabolic encephalopathy/UTI 03/05/17-patient seen and examined, patient is confused however oriented to self , date of as well as Place of . 03/06/17-patient seen and examined, although patient is confused he is much more alert today. Patient thinks he is in [place] 03/07/17-patient seen and examined,Halicat was: Patient yesterday around 6:30 PM secondary to acute hypoxemia and respiratory distress for which patient was treated with and responded well to Lasix, Solu-Medrol. He was transferred to [facility]. Although patient is alert but he is pleasantly confused. Vital remain stable 03/08/17-patient seen and examined, alert and oriented to self, date and place of , able to say he is at [place] however said [facility]. Leukocytosis worsening . BG slightly up Objective Vitals Vital Signs Date Time Temp Pulse Resp B/P (MAP) Pulse Ox O2 Delivery O2 Flow Rate FiO2 03/08/17 07:33 97 Nasal Cannula 2.00 03/08/17 06:00 70 03/08/17 04:31 96 Nasal Cannula 2.00 03/08/17 04:01 98.1 69 20 135/112 (120) 98 03/08/17 04:00 70 03/08/17 02:00 69 03/08/17 00:00 98.3 71 27 160/94 (116) 96 03/08/17 00:00 71 03/07/17 22:00 70 03/07/17 20:01 98.7 71 33 164/63 (96) 96 03/07/17 20:00 71 03/07/17 19:30 96 Nasal Cannula 2.00 03/07/17 19:00 98 Nasal Cannula 3.00 03/07/17 18:00 68 03/07/17 17:00 67 03/07/17 16:00 98.0 68 24 144/57 (86) 98 03/07/17 16:00 68 03/07/17 15:00 67 03/07/17 14:00 66 03/07/17 13:00 66 03/07/17 12:55 95 03/07/17 12:00 98.3 68 27 136/58 (84) 94 03/07/17 12:00 68 03/07/17 11:00 68 I/O 03/07/17 03/07/17 03/07/17 03/08/17 03/08/17 03/08/17 07:00 15:00 23:00 07:00 15:00 23:00 Intake Total 130 ml 400 ml 130 ml Output Total 1650 ml 1200 ml 650 ml Balance -1520 ml -800 ml -520 ml Intake Oral 30 ml 300 ml 30 ml IV Total 100 ml 100 ml 100 ml Output Urine Total 1650 ml 1200 ml 650 ml # Bowel Movements 0 1 3 Result Diagram: 03/08/17 0310 03/08/17 0310 Imaging Last Impressions Chest X-Ray 03/06/17 0000 Signed Impressions: Service Date/Time: Monday, March 06, 2017 18:51 - CONCLUSION: Mild pulmonary edema with slight increase from the prior study. Corby Melendez MD Brain MRI 03/05/17 0000 Signed Impressions: Service Date/Time: Sunday, March 05, 2017 11:28 - CONCLUSION: Moderate motion artifact. Negative for acute ischemic event. Atrophy with periventricular changes. Bennett Ibarra MD FACR Abdomen/Pelvis CT 03/04/17 1742 Signed Impressions: Service Date/Time: Saturday, March 04, 2017 18:28 - CONCLUSION: 1. Bilateral pleural effusions small to moderate in size. 2. No acute findings in the abdomen and pelvis. Corby Melendez MD Head CT 03/04/17 1732 Signed Impressions: Service Date/Time: Saturday, March 04, 2017 18:18 - CONCLUSION: No acute intracranial findings. Partial opacification of right sided mastoid air cells new. Corby Melendez MD Objective Remarks GENERAL: NAD with upper restraints in place SKIN: Warm and dry. HEAD: Normocephalic. EYES: No scleral icterus. No injection or drainage. NECK: Supple, trachea midline. No JVD or lymphadenopathy. CARDIOVASCULAR: Regular rate and rhythm without murmurs, gallops, or rubs. RESPIRATORY: Breath sounds equal bilaterally. No accessory muscle use. GASTROINTESTINAL: Abdomen soft, non-tender, nondistended. MUSCULOSKELETAL: No cyanosis, or edema. Left BKA BACK: Nontender without obvious deformity. No CVA tenderness. A/P Problem List: (1) Catheter-associated urinary tract infection ICD Code: T83.511A - Infection and inflammatory reaction due to indwelling urethral catheter, initial encounter; N39.0 - Urinary tract infection, site not specified Status: Acute (2) Metabolic encephalopathy ICD Code: G93.41 - Metabolic encephalopathy Status: Acute Assessment and Plan 76 year-old man with 1. Severe anemia of chronic disease Transfused 2 units PRBCs Hemoccult negative in the ED Continue to monitor H&H, transfuse accordingly for hemoglobin less than 7 Check iron study 2. Catheter associated UTI-Escherichia coli Continue with Zosyn. Hopefully will change to by mouth antibiotics in a.m. Patient with chronic [place]all[place], changed in the ED 3. Hypothermia Resolved 4. Metabolic encephalopathy CT head with no acute findings Brain MRI noted and review by me Appreciate input from neurology pending repeat EEG Treatment for UTI/PNA as below Attempt today to remove upper extremity restrains 5. Healthcare acquired PNA/Sepsis/UTI Continue with Vanc/Zosyn Blood cultures NTD 6. Bladder cancer Oncology consulted, appreciate recommendations Patient may need cystoscopy when medically stable 7. Insulin-dependent diabetes mellitus Labile blood glucose Increase Lantus to 30 units, continue SSI Monitor blood glucose 8. Hypertension/hyperlipidemia Continue home medications 9. History of prostate cancer PSA within normal limits 10. Respiratory distress with hypoxemia Resolved, status post treatment with Lasix and Solu-Medrol 03/06/17 Leukocytosis Worsening status post treatment with Solu-Medrol Continue to monitor CHF of unknown type BNP elevated Chest x-ray noted and review by me with finding of mild pulmonary edema Currently on Lasix IV 20 mg twice a day pending 2-D echo Transfer to Jeffy Wayne MD Mar 08, 2017 10:55
[2017-03-08 11:44] LABS: % SATURATION IRON PROFILE 9.8 % (20-50); IRON (FE) 15 MCG/DL (65-175); TOTAL IRON BINDING CAPACITY 153 MCG/DL (250-450)
[2017-03-08 12:08] LABS: HEMATOCRIT 22.3 % (39.0-51.0); HEMOGLOBIN 7.3 GM/DL (13.0-17.0)
--- NOTE | 2017-03-08 13:53 | MG ---
cc: MIA SHAFER M.D. Lab No: [id number] Date: 03/08/2017 Age:76 Sex: M Race: DATE OF : 1940 76 years old. ROOM: 514. Photic stimulation. The EEG is awake, drowsy asleep EEG last one done which showed mild theta slowing. MRI of moderate artifact negative for acute infarct and atrophy admitted with change in mental status. A 76-year-old patient heart disease, diabetes, MRSA, alcohol, hallucinations, snoring, bladder cancer on Lasix, Levemir, Norvasc, Lipitor, pipracillin, Tylenol. DESCRIPTION OF RECORD: Overall background slowing still observed 3-4 Hz 4-1/2 Hz at times. A lot of artifact in the frontal eye fraga again but overall theta slowing predominately. Photic stimulation with minimal driving response if at all. IMPRESSION Moderate slowing consistent with ongoing encephalopathic process without any epileptiform features. Clinical correlation. MD ABELINO Woodard/sung /1:16 PM /1:26 PM
--- NOTE | 2017-03-08 16:09 | ECHRPT ---
Indication: HEART FAILURE CONCLUSIONS Normal left ventricular size. Mild basal septal prominence without evidence for left ventricular ou tflow tract gradient or systolic anterior motion of the mitral valve. Normal wall motion. The left ventricular systolic function is normal with an estimated ejection fraction in the range of 60-65%. Mild aortic valve sclerosis is present. There is mild tricuspid valve regurgitation. Mild mitral annular calcification. BP: 112 / 70 HR: 100 Rhythm: Sinus MEASUREMENTS (Male / Female) Normal Values Technical Quality:Fair 2D ECHO LV Diastolic Diameter PLAX 3.6 cm 4.2 - 5.9 / 3.9 - 5.3 cm LV Systolic Diameter PLAX 2.6 cm IVS Diastolic Thickness 1.6 cm 0.6 - 1.0 / 0.6 - 0.9 cm LVPW Diastolic Thickness 1.6 cm 0.6 - 1.0 / 0.6 - 0.9 cm LV Relative Wall Thickness 0.9 RV Internal Dim ED PLAX 3.4 cm LVOT Diameter 1.8 cm Aortic Root Diameter 3.2 cm LA Systolic Diameter LX 4.1 cm 3.0 - 4.0 / 2.7 - 3.8 cm M-MODE AV Cusp Separation MM 1.9 cm DOPPLER AV Peak Velocity 160.0 cm/s AV Peak Gradient 10.2 mmHg AV Mean Gradient 5.0 mmHg AV Velocity Time Integral 30.1 cm LVOT Peak Velocity 88.7 cm/s LVOT Peak Gradient 3.1 mmHg LVOT Velocity Time Integral 20.3 cm LVOT Cardiac Index 2425.2 cm/minm AV Area Cont Eq vti 1.7 cm AV Area Cont Eq pk 1.4 cm Mitral E Point Velocity 115.0 cm/s Mitral A Point Velocity 130.0 cm/s Mitral E to A Ratio 0.9 LV E' Lateral Velocity 7.8 cm/s Mitral E to LV E' Lateral Ratio 14.7 LV E' Septal Velocity 7.6 cm/s Mitral E to LV E' Septal Ratio 15.1 PV Peak Velocity 98.5 cm/s PV Peak Gradient 3.9 mmHg FINDINGS LEFT VENTRICLE Normal left ventricular size. Mild basal septal prominence without evidence for left ventricular ou tflow tract gradient or systolic anterior motion of the mitral valve. Normal wall motion. The left ventricular systolic function is normal with an estimated ejection fraction in the range of 60-65%. RIGHT VENTRICLE Normal right ventricular size and systolic function. LEFT ATRIUM The left atrial size is normal. RIGHT ATRIUM The right atrial size is normal. ATRIAL SEPTUM Normal atrial septal thickness without atrial level shunting by limited color doppler interrogation. AORTA The aortic root and proximal ascending aorta are normal in size on limited imaging. MITRAL VALVE Mild mitral annular calcification. AORTIC VALVE Mild aortic valve sclerosis is present. TRICUSPID VALVE There is mild tricuspid valve regurgitation. PULMONARY VALVE No pulmonary valve regurgitation or stenosis. VESSELS The inferior vena cava is normal in size. PERICARDIUM No pericardial effusion. Torres Rivera MD (Electronically Signed) Final Date:08 March 2017 16:08
[2017-03-08] MEDS ORDERED: VANCOMYCIN 1,000 MG/NS 250 ML IV SCH ×2 (18:00)
[2017-03-08] MEDS: LATANOPROST 0.005% OPHT SOLN 2.5 ML BTL RIGHT EYE SCH (21:02)
[2017-03-09] VITALS (9 sets, daily range): BP systolic 127–190; BP diastolic 63–79; PULSE 65–72; RESP 16–20; TEMP 97.3–98.4; O2SAT 93–99
[2017-03-09] MEDS ORDERED: INSULIN ASPART 1,000 UNITS/10 ML VIAL SQ ONE (00:30)
[2017-03-09] MEDS ORDERED: GLUCAGON 1 MG/ML VIAL OTHER PRN (00:30)
[2017-03-09] MEDS: CHLORHEXIDINE GLUCONATE 2 % 1 PACK (2 CLOTHS)(taper/protocol) TOPICAL SCH (04:00)
[2017-03-09] MEDS: PIPERACIL-TAZO 4.5 GM PREMIX 100 ML IV SCH ×3 (05:00→18:00)
[2017-03-09] MEDS: INSULIN ASPART SUPPLEMENTAL SCALE SQ SCH ×4 (08:00→21:29)
[2017-03-09] MEDS: ATORVASTATIN 20 MG TAB PO SCH (08:55)
[2017-03-09] MEDS: POTASSIUM CHLORIDE 10 MEQ CAP PO SCH (08:55)
[2017-03-09] MEDS: METOPROLOL TARTRATE 50 MG TAB PO SCH ×2 (08:55→21:27)
[2017-03-09] MEDS: INSULIN DETEMIR 100 UNITS/ML VIAL SQ SCH (09:00)
[2017-03-09] MEDS: DORZOLAMIDE 2% OPTH SOLN 200 DROP/10 ML BTLO RIGHT EYE SCH ×2 (09:03→21:29)
[2017-03-09] MEDS: FUROSEMIDE 20 MG/2 ML VIAL IV PUSH SCH ×2 (09:04→18:00)
[2017-03-09] MEDS: SODIUM CHLORIDE 0.9% FLUSH 10 ML FLUSH IV FLUSH SCH ×2 (09:08→21:27)
--- NOTE | 2017-03-09 13:12 | HHI.PR ---
Subjective Remarks Nursing reports the patient needed some restraints due to constantly trying to disrupt his IV site on his chest. Otherwise there were no other medical deteriorations. Patient himself is able to tell me that he is in a hospital in [place] and that it is the month of March. He denied having any new pain anywhere. He has his nasal cannula on his head as opposed to his nostrils. Objective Vital Signs Date Time Temp Pulse Resp B/P (MAP) Pulse Ox O2 Delivery O2 Flow Rate FiO2 03/09/17 12:00 98.0 68 17 190/79 (116) 95 03/09/17 08:12 98.4 70 17 127/63 (84) 97 03/09/17 06:04 98.3 72 16 143/71 (95) 96 03/09/17 03:02 160/70 (100) 99 03/09/17 01:46 97.9 71 16 159/79 (105) 98 03/08/17 20:28 98.2 88 16 156/70 (98) 98 03/08/17 19:08 97.5 65 19 148/66 (93) 99 03/08/17 19:00 99 Nasal Cannula 2.00 03/08/17 18:30 Nasal Cannula 2.00 03/08/17 16:00 98.1 84 32 153/81 (105) 95 03/08/17 16:00 98.1 84 32 153/81 (105) 95 I/O 03/08/17 03/08/17 03/08/17 03/09/17 03/09/17 03/09/17 07:00 15:00 23:00 07:00 15:00 23:00 Intake Total 130 ml 200 ml 480 ml 240 ml Output Total 650 ml 1250 ml 1550 ml Balance -520 ml 200 ml -770 ml -1310 ml Intake Oral 30 ml 480 ml 240 ml IV Total 100 ml 200 ml Output Urine Total 650 ml 1250 ml 1550 ml # Bowel Movements 3 1 1 1 Result Diagram: 03/08/17 1120 03/08/17 0310 Objective Remarks Elderly white male in no acute distress Mild diffuse expiratory crackles and rhonchi Unlabored breathing, no cyanosis A/P Assessment and Plan 1. Severe anemia of chronic disease improved and stable post transfusion 2 units since admission; reordering Hemoccults 2. Catheter associated UTI-Escherichia coli anticipate transition to monoagent once PNA status stabilized 3. Metabolic encephalopathy Significantly improved; suspect with all the workup he had this was most likely medical delirium 4. Possible Healthcare acquired PNA Continue with antibiotics, restarting steroids, we'll obtain pro-calcitonin - if negative we will no longer need to cover for pneumonia just UTI 5. Bladder cancer Oncology consulted, appreciate recommendations Patient may need cystoscopy when medically stable 6. Insulin-dependent diabetes mellitus Labile blood glucose Lantus to 30 units, continue SSI Monitor blood glucose 7. Hypertension/hyperlipidemia Continue home medications 8. History of prostate cancer PSA within normal limits 9. Respiratory distress with hypoxemia Resolved Messi Cohn MD Mar 09, 2017 13:12
[2017-03-09] MEDS: methylPREDNISolone SOD SUCC 125 MG/2 ML VIAL IV PUSH SCH ×2 (13:54→21:28)
[2017-03-09 18:58] LABS: AUTOMATED NEUTROPHIL # 9.4 TH/MM3 (1.8-7.7); BASOPHIL % 0.2 % (0.0-2.0); HEMATOCRIT 24.2 % (39.0-51.0); HEMOGLOBIN 7.8 GM/DL (13.0-17.0); LYMPHOCYTE # 0.7 TH/MM3 (1.0-4.8); MEAN CELL VOLUME 86.7 FL (80.0-100.0); MEAN CORPUSCULAR HGB CONC 32.3 % (32.0-36.0); MEAN PLATELET VOLUME 7.5 FL (7.0-11.0); MONO % 2.4 % (0.0-8.0); MONOCYTE # 0.3 TH/MM3 (0-0.9); NEUT % 90.4 % (16.0-70.0); PLATELET COUNT 378 TH/MM3 (150-450); RED BLOOD COUNT 2.79 MIL/MM3 (4.50-5.90); RED CELL DISTRIBUTION WIDTH 17.7 % (11.6-17.2); WHITE BLOOD COUNT 10.4 TH/MM3 (4.0-11.0)
[2017-03-09 19:25] LABS: BICARBONATE 25.7 MEQ/L (21.0-32.0); CALCIUM 7.9 MG/DL (8.5-10.1); CREATININE 1.29 MG/DL (0.60-1.30); RANDOM VANCOMYCIN 16.2 COMMENT
[2017-03-09 19:56] LABS: BANDS 3 % (0-6); CORRECTED NUCLEATED RBC 2 /100 WBC (0-0); LYMPHOCYTES 2 % (9-44); METAMYELOCYTES 1 % (0-1); MYELOCYTES 1 % (0-0); NUCLEATED RED BLOOD CELL 2 (0-0)
[2017-03-09 19:57] LABS: KERATOCYTES OCC (NORMAL); MONOCYTES 2 % (0-8); OVALOCYTES 1+ (NORMAL); POLYS (SEG NEUTROPHILS) 91 % (16-70); TOXIC GRANULATION 1+ (NORMAL)
[2017-03-09] MEDS: RESP: ALBUTEROL 2.5 MG/IPRATROPIUM 0.5 MG NEB (SCH) NEB (20:29)
[2017-03-09] MEDS: LATANOPROST 0.005% OPHT SOLN 2.5 ML BTL RIGHT EYE SCH (21:29)
[2017-03-10] VITALS (8 sets, daily range): BP systolic 149–182; BP diastolic 65–84; PULSE 72–91; RESP 17–18; TEMP 97.5–98.1; O2SAT 93–96
[2017-03-10] MEDS: CHLORHEXIDINE GLUCONATE 2 % 1 PACK (2 CLOTHS)(taper/protocol) TOPICAL SCH (02:32)
[2017-03-10] MEDS: PIPERACIL-TAZO 4.5 GM PREMIX 100 ML IV SCH ×2 (05:53)
[2017-03-10] MEDS: methylPREDNISolone SOD SUCC 125 MG/2 ML VIAL IV PUSH SCH ×2 (05:53→18:30)
[2017-03-10 07:26] LABS: BICARBONATE 24.9 MEQ/L (21.0-32.0); CALCIUM 7.8 MG/DL (8.5-10.1); CREATININE 1.21 MG/DL (0.60-1.30)
[2017-03-10 07:28] LABS: RANDOM VANCOMYCIN 13.2 COMMENT
[2017-03-10] MEDS: INSULIN ASPART SUPPLEMENTAL SCALE SQ SCH ×3 (08:00→22:35)
--- NOTE | 2017-03-10 08:26 | HHI.PR ---
Review/Management Diagnosis/Plan: (1) Metabolic encephalopathy ICD Codes: G93.41 - Metabolic encephalopathy Status: Acute Plan: acute on chronic encephalopathy multiple current medical reasons to explain his altered mental status. his mental status appears improved compared to what i have read in the chart. this may be 2/2 iv abx vs delirium infection/anemia/hypothermia/SIRS/hypoxemia he may be developing mild cognitive impairment/dementia, however, this dx cannot be adequately made until all infections, metabolic derangements have been treated. further outpatient cognitive testing will be helpful last cxr 03/06-mild pulm edema recs mental status improved compared to the last time i saw him eeg-encephalopathy neuro sign off. call if ? d/c planning to NH (2) Catheter-associated urinary tract infection ICD Codes: T83.511A - Infection and inflammatory reaction due to indwelling urethral catheter, initial encounter; N39.0 - Urinary tract infection, site not specified Status: Acute (3) Bladder cancer ICD Codes: C67.9 - Malignant neoplasm of bladder, unspecified Status: Acute (4) Hypothermia ICD Codes: T68.XXXA - Hypothermia, initial encounter Status: Acute Subjective Subjective Comments No acute events reported No headache No chest pain No dyspnea Active Medications Current Medications Medications (Trade) Dose Ordered Sig/Myrna Route Start Time Stop Time Status Last Admin (NS Flush) 2 ml UNSCH PRN IV FLUSH 03/04/17 21:00 03/06/17 14:09 (NS Flush) 2 ml BID IV FLUSH 03/04/17 21:00 03/09/17 21:27 (Tylenol) 650 mg Q4H PRN PO 03/04/17 21:00 (Zofran Inj) 4 mg Q6H PRN IVP 03/04/17 21:00 (Narcan Inj) 0.4 mg UNSCH PRN IV PUSH 03/04/17 21:00 (Milk Of Magnesia Liq) 30 ml Q12H PRN PO 03/04/17 21:00 (Norvasc) 10 mg DAILY PO 03/05/17 09:00 03/09/17 08:55 (Lipitor) 20 mg DAILY PO 03/05/17 09:00 03/09/17 08:55 (Trusopt 2% Opth Soln) 1 drop BID RIGHT EYE 03/04/17 21:00 03/09/17 21:29 (Xalatan 0.005% Opth Soln) 1 drop HS RIGHT EYE 03/04/17 21:00 03/09/17 21:29 (Lopressor) 50 mg Q12HR PO 03/04/17 21:00 03/09/17 21:27 Pharmacy Profile Note 0 ml @ 0 mls/hr UNSCH OTHER 03/05/17 00:00 Piperacillin Sod/ Tazobactam Sod 100 ml @ 200 mls/hr Q6H IV 03/05/17 00:00 03/10/17 05:53 (Duoneb Neb) 1 ampule Q4HR NEB PRN NEB 03/06/17 01:15 03/06/17 18:46 (Lasix Inj) 20 mg BID@,18 IV PUSH 03/07/17 09:00 03/09/17 18:00 (KCl) 10 meq DAILY PO 03/07/17 09:00 03/09/17 08:55 Miscellaneous Information Patient in critical care unit? Ass... [id number] .XX 03/07/17 17:00 (Chlorhexidine 2% Cloth) 3 pack DAILY@04 TOPICAL 03/08/17 04:00 03/12/17 04:01 03/08/17 01:00 (Chlorhexidine 2% Cloth) 3 pack UNSCH PRN TOPICAL 03/07/17 17:00 03/12/17 16:48 (Levemir Inj) 30 units DAILY SQ 03/09/17 09:00 03/09/17 09:00 (D50w (Vial) Inj) 50 ml UNSCH PRN IV PUSH 03/09/17 00:30 (Glucagon Inj) 1 mg UNSCH PRN OTHER 03/09/17 00:30 (NovoLOG SUPPLEMENTAL SCALE) 1 ACHS SLIDING SCALE SQ 03/09/17 08:00 03/09/17 21:29 (SoluMEDROL INJ) 125 mg Q8HR IV PUSH 03/09/17 14:00 03/10/17 13:59 03/10/17 05:53 (SoluMEDROL INJ) 60 mg Q12H IV PUSH 03/10/17 14:00 (Duoneb Neb) 1 ampule Q6HR WHILE AWAKE NEB NEB 03/09/17 14:00 03/09/17 20:29 Allergies Allergies Coded Allergies benazepril (Verified Adverse Reaction, Intermediate, Cough, 03/08/17) captopril (Verified Adverse Reaction, Intermediate, Cough, 03/08/17) enalaprilat (Verified Adverse Reaction, Intermediate, Cough, 03/08/17) fosinopril (Verified Adverse Reaction, Intermediate, Cough, 03/08/17) lisinopril (Verified Adverse Reaction, Intermediate, Cough, 03/08/17) quinapril (Verified Adverse Reaction, Intermediate, Cough, 03/08/17) Review of Systems All other ROS: ROS reviewed as documented in chart Exam I&O / VS 03/10/17 03/10/17 03/11/17 15:00 23:00 07:00 # Bowel Movements 1 Vital Signs Date Time Temp Pulse Resp B/P (MAP) Pulse Ox O2 Delivery O2 Flow Rate FiO2 03/10/17 08:19 97.8 74 17 172/84 (113) 93 03/10/17 05:11 98.1 72 18 182/77 (112) 95 03/10/17 01:34 98.0 82 18 178/77 (110) 96 03/09/17 21:21 97.7 65 20 168/79 (108) 93 03/09/17 20:32 98 03/09/17 20:00 Room Air 03/09/17 16:04 97.3 68 18 186/74 (111) 94 03/09/17 14:00 93 Room Air 03/09/17 13:48 93 03/09/17 12:00 98.0 68 17 190/79 (116) 95 General: No acute distress Eye: EOMI Respiratory: Non-labored respirations Cardiology: Normal rate Neurologic: Alert Psychiatric: Cooperative Exam Comments alert, ox 1-2, not to date, "i'm at [facility]" can follow 1 step request at times, able to form 4-5 word sentences, face sym, left bka, rt le distal reduced pin, neck supple Objective Micro and Labs Laboratory Tests Test 03/09/17 18:33 03/10/17 05:40 White Blood Count 10.4 Red Blood Count 2.79 Hemoglobin 7.8 Hematocrit 24.2 Mean Corpuscular Volume 86.7 Mean Corpuscular Hemoglobin 28.0 Mean Corpuscular Hemoglobin Concent 32.3 Red Cell Distribution Width 17.7 Platelet Count 378 Mean Platelet Volume 7.5 Neutrophils (%) (Auto) 90.4 Lymphocytes (%) (Auto) 7.0 Monocytes (%) (Auto) 2.4 Eosinophils (%) (Auto) 0.0 Basophils (%) (Auto) 0.2 Neutrophils # (Auto) 9.4 Lymphocytes # (Auto) 0.7 Monocytes # (Auto) 0.3 Eosinophils # (Auto) 0.0 Basophils # (Auto) 0.0 CBC Comment AUTO DIFF Differential Total Cells Counted 100 Neutrophils % (Manual) 91 Band Neutrophils % 3 Lymphocytes % 2 Monocytes % 2 Neutrophils # (Manual) 10.0 Metamyelocytes 1 Myelocytes 1 Nucleated Red Blood Cells 2 Differential Comment FINAL DIFF MANUAL Toxic Granulation 1+ Platelet Estimate NORMAL Platelet Morphology Comment NORMAL Ovalocytes 1+ Keratocytes OCC Blood Urea Nitrogen 41 40 Creatinine 1.29 1.21 Random Glucose 256 321 Calcium Level 7.9 7.8 Sodium Level 149 149 Potassium Level 3.3 3.1 Chloride Level 115 114 Carbon Dioxide Level 25.7 24.9 Anion Gap 8 10 Estimat Glomerular Filtration Rate 54 58 Procalcitonin 0.62 Random Vancomycin Level 16.2 13.2 Date/Time Source Procedure Growth Status 03/04/17 17:04 Blood Peripheral Aerobic Blood Culture - Final NO GROWTH IN 5 DAYS Complete 03/04/17 17:04 Blood Peripheral Anaerobic Blood Culture - Final NO GROWTH IN 5 DAYS Complete 03/04/17 20:50 Nasal Washing Influenza Types A,B Antigen (SANGEETA) - Final NEGATIVE FOR FLU A AND B ANTIGEN.... Complete 03/04/17 17:32 Urine Clean Catch Urine Culture - Final Staphylococcus Aureus Complete 03/05/17 03:35 Abscess Leg Gram Stain - Final Complete 03/05/17 03:35 Wound Culture - Final Staphylococcus Aureus Complete Problem Qualifiers (1) Bladder cancer: Qualified Codes: C67.9 - Malignant neoplasm of bladder, unspecified (2) Hypothermia: Qualified Codes: T68.XXXA - Hypothermia, initial encounter Jaylen Dennis MD Mar 10, 2017 08:26
[2017-03-10] MEDS ORDERED: POTASSIUM CHLORIDE 10 MEQ CONTROLLED RELEASE TAB PO ONE (08:30)
[2017-03-10] MEDS: POTASSIUM CHLORIDE 10 MEQ CAP PO SCH (08:55)
[2017-03-10] MEDS: METOPROLOL TARTRATE 50 MG TAB PO SCH ×2 (08:55→22:34)
[2017-03-10] MEDS: FUROSEMIDE 20 MG/2 ML VIAL IV PUSH SCH ×2 (08:55→18:30)
[2017-03-10] MEDS: ATORVASTATIN 20 MG TAB PO SCH (08:55)
[2017-03-10] MEDS: SODIUM CHLORIDE 0.9% FLUSH 10 ML FLUSH IV FLUSH SCH ×2 (08:56→21:00)
[2017-03-10] MEDS: INSULIN DETEMIR 100 UNITS/ML VIAL SQ SCH (08:56)
[2017-03-10] MEDS: DORZOLAMIDE 2% OPTH SOLN 200 DROP/10 ML BTLO RIGHT EYE SCH ×2 (09:00→22:35)
[2017-03-10] MEDS: RESP: ALBUTEROL 2.5 MG/IPRATROPIUM 0.5 MG NEB (SCH) NEB ×3 (09:23→20:27)
[2017-03-10] MEDS ORDERED: CARVEDILOL 3.125 MG TAB PO SCH (11:45)
[2017-03-10] MEDS ORDERED: NIFEdipine 10 MG CAP PO SCH (11:45)
[2017-03-10] MEDS ORDERED: FUROSEMIDE 40 MG/4 ML VIAL IV PUSH ONE (11:45)
[2017-03-10] MEDS ORDERED: VANCOMYCIN INJ 1,300 MG in SODIUM CHLORID 0.9% 500 ML INJ 500 ML IV ONE (12:00)
[2017-03-10] MEDS: TAMSULOSIN HCL 0.4 MG CAP PO SCH (13:10)
[2017-03-10] MEDS: LOSARTAN 25 MG TAB PO SCH (13:10)
[2017-03-10] MEDS ORDERED: CEFD300C PO (13:13)
[2017-03-10] MEDS ORDERED: TAMS5CAP PO (13:13)
[2017-03-10] MEDS ORDERED: DOXY100C PO (13:13)
[2017-03-10] MEDS ORDERED: KLOR20TA3 PO (13:13)
[2017-03-10] MEDS ORDERED: PRED10PA PO (13:13)
[2017-03-10] MEDS ORDERED: FURO1TAB60 PO (13:13)
[2017-03-10] MEDS ORDERED: methylPREDNISolone SOD SUCC 125 MG/2 ML VIAL IV PUSH SCH (14:00)
--- NOTE | 2017-03-10 16:27 | MB ---
cc: MODESTA ROSA DATE OF CONSULTATION: 03/10/2017. HISTORY OF PRESENT ILLNESS: Mr. Valente is a pleasant 76-year-old who was admitted on 03/05/2017 alteration of mental status. His medical history is significant for diabetes, hypertension, and he has a history of muscle invasive bladder cancer. He underwent a TURBT on September 01 at [facility] and received four cycles of neoadjuvant chemotherapy in January. He has had a chronic Caballero in place during this time. He has also had a low hemoglobin and does have a report of hematuria. At present his urine is clear and the Caballero catheter is in good position. He is somewhat of a poor historian due to his recent alteration in mental status. PAST MEDICAL HISTORY: His medical history includes: 1. Diabetes mellitus, insulin-dependent. 2. Hypertension. 3. Glaucoma. 4. History of bladder cancer. 5. History of prostate cancer for which he states he had radiation therapy. PAST SURGICAL HISTORY: 1. Cholecystectomy. 2. Left above-knee amputation. 3. Back surgery. 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 MEDICATIONS: For medications, please refer to the chart. ALLERGIES: MULTIPLE ALLERGIES ARE NOTED: 1. QUINAPRIL. 2. LISINOPRIL. 3. ENALAPRIL. 4. CAPTOPRIL. 5. BENAZEPRIL. 6. FOSINOPRIL. FAMILY HISTORY: Denies any heart disease. SOCIAL HISTORY: Prior smoking in the past, he quit thirty years ago. Denies alcohol or illicit drug use. REVIEW OF SYSTEMS: He denies chest pain, denies shortness of breath, does have some gait disturbances. He is currently weak and has been bedridden. He denies bleeding disorders, psychiatric problems, headaches. The remaining review of systems were reviewed and were negative. PHYSICAL EXAMINATION: VITAL SIGNS: His vital signs temperature 97.5, heart rate 78, respiratory rate 17, 175/77. Pulse oximetry is 96% on room air. GENERAL: He is a well-developed, well-nourished 76-year-old male in no acute distress. HEAD, EYES, EARS, NOSE, THROAT: Normocephalic and atraumatic. Pupils equal, round and reactive to light. Extraocular muscles intact. NECK: The neck is supple. HEART: Regular rate and rhythm. LUNGS: Clear. ABDOMEN: The abdomen is soft, nontender and nondistended. GENITOURINARY: Caballero catheter in place. Normal phallus. Testes are descended. EXTREMITIES: History of a left above-knee amputation. NEURO: CNII-XII intact PSYCH: Generalized mood LABORATORY FINDINGS: White count 10.4, hemoglobin 7.8, hematocrit 24.2, platelet count of 378,000. Sodium 149, potassium 3.1, chloride 114, CO2 24.9, BUN of 40, creatinine 1.2, glucose of 321. PT is 12.1, INR 1.2, PTT is 29.4. RADIOLOGICAL STUDIES: CT scan 03/04/2017 shows bilateral pleural effusions. No other acute findings are noted. There is no adenopathy noted. Kidneys are normal in size with no hydronephrosis. ASSESSMENT: This is a 76-year-old male with history of muscle invasive bladder cancer and a history of prostate cancer who recently received neoadjuvant chemotherapy. Urine is presently clear and there is no evidence of any gross hematuria at this point. RECOMMENDATIONS: Would recommend maintaining the Caballero catheter for now and would have him follow-up with his urologist to determine if a cystectomy is a reasonable option or ongoing observation with palliative care would be considered. Thank you for the consult and for allowing me to participate in the care of this patient. Modesta FENG/JAVIER /3:02 PM /3:54 PM KAMERON
--- NOTE | 2017-03-10 17:05 | HHI.DCPOC ---
Discharge Care Plan Diagnosis: (1) Bladder cancer (2) Catheter-associated urinary tract infection (3) Metabolic encephalopathy (4) Pneumonia Goals to Promote Your Health * To prevent worsening of your condition and complications * To maintain your health at the optimal level Directions to Meet Your Goals Take your medications as prescribed Follow your dietary instruction Follow activity as directed Keep your appointments as scheduled Take your immunizations and boosters as scheduled If your symptoms worsen call your PCP, if no PCP go to Urgent Care Center or Emergency Room Smoking is Dangerous to Your Health. Avoid second hand smoke Call the 24-hour hour crisis hotline for domestic abuse at Messi Cohn MD Mar 10, 2017 17:05
--- NOTE | 2017-03-10 18:12 | HHI.PR ---
Subjective Remarks Nursing denies any deterioration since last night. Charge nurse confirmed that the patient did have his Chew swapped out during this admission in the emergency department. Patient himself has no new complaints. No reports of any repeat hematuria since admission. Objective Vital Signs Date Time Temp Pulse Resp B/P (MAP) Pulse Ox O2 Delivery O2 Flow Rate FiO2 03/10/17 16:30 98.0 91 17 149/65 (93) 93 03/10/17 11:45 97.5 78 17 175/77 (109) 96 03/10/17 09:23 95 03/10/17 08:19 97.8 74 17 172/84 (113) 93 03/10/17 05:11 98.1 72 18 182/77 (112) 95 03/10/17 01:34 98.0 82 18 178/77 (110) 96 03/09/17 21:21 97.7 65 20 168/79 (108) 93 03/09/17 20:32 98 03/09/17 20:00 Room Air I/O 03/09/17 03/09/17 03/09/17 03/10/17 03/10/17 03/10/17 07:00 15:00 23:00 07:00 15:00 23:00 Intake Total 480 ml 240 ml 480 ml Output Total 1250 ml 1550 ml 1200 ml 1700 ml 1050 ml Balance -770 ml -1310 ml -1200 ml -1700 ml -570 ml Intake Oral 480 ml 240 ml 480 ml Output Urine Total 1250 ml 1550 ml 1200 ml 1700 ml 1050 ml # Bowel Movements 1 1 1 1 3 1 Result Diagram: 03/09/17 1833 03/10/17 0540 Objective Remarks Elderly white male in no acute distress unchanged mild diffuse expiratory crackles and rhonchi Unlabored breathing, no cyanosis A/P Assessment and Plan 1. Severe acute on chronic anemia - likely worsened w/ original hematuria noted upon admission - stable at this time - improved and stable post transfusion 2 units since admission; original Hemoccult negative in ER - Multifactorial with acute blood loss and anemia of chronic disease. 2. Catheter associated UTI-Escherichia coli anticipate transition to monoagent once PNA status stabilized 3. Metabolic encephalopathy resolved 4. Possible Healthcare acquired PNA/acute respiratory insufficiency doing well on RA - continue low dose oral lasix; echo showing intact EF Continue with antibiotics - transition to doxycycline and cefdinir from vancomycin and zosyn 5. Bladder cancer -Oncology consulted, appreciate recommendations -Patient may need cystoscopy when medically stable - Discussed with urology, stable for discharge from urology standpoint with no acute surgical diagnostic or therapeutic intervention warranted; more appropriate to have patient's outpt urologist arrange a long-term plan - maintain chew, starting Flomax 6. Insulin-dependent diabetes mellitus Labile blood glucose Lantus to 30 units, continue SSI upgrading from LD to HDSS 7. Hypertension/hyperlipidemia Continue home medications 8. History of prostate cancer PSA within normal limits Messi Cohn MD Mar 10, 2017 18:12
[2017-03-10] MEDS: LATANOPROST 0.005% OPHT SOLN 2.5 ML BTL RIGHT EYE SCH (22:36)
[2017-03-11] VITALS (9 sets, daily range): BP systolic 120–178; BP diastolic 58–75; PULSE 68–97; RESP 16–20; TEMP 97.5–98.6; O2SAT 94–97
[2017-03-11] MEDS ORDERED: INSULIN ASPART SUPPLEMENTAL SCALE SQ ONE (03:30)
[2017-03-11] MEDS: CHLORHEXIDINE GLUCONATE 2 % 1 PACK (2 CLOTHS)(taper/protocol) TOPICAL SCH (03:48)
[2017-03-11] MEDS: methylPREDNISolone SOD SUCC 125 MG/2 ML VIAL IV PUSH SCH (06:31)
[2017-03-11 08:58] LABS: CREATININE 1.23 MG/DL (0.60-1.30)
[2017-03-11] MEDS ORDERED: DOXYCYCLINE HYCLATE 100 MG TAB PO SCH (09:00)
[2017-03-11] MEDS ORDERED: CEFUROXIME AXETIL 500 MG TAB PO SCH (09:00)
[2017-03-11] MEDS: DORZOLAMIDE 2% OPTH SOLN 200 DROP/10 ML BTLO RIGHT EYE SCH ×2 (09:00→20:45)
[2017-03-11] MEDS: TAMSULOSIN HCL 0.4 MG CAP PO SCH (09:22)
[2017-03-11] MEDS: METOPROLOL TARTRATE 50 MG TAB PO SCH ×2 (09:22→20:45)
[2017-03-11] MEDS: LOSARTAN 25 MG TAB PO SCH (09:22)
[2017-03-11] MEDS: INSULIN DETEMIR 100 UNITS/ML VIAL SQ SCH ×2 (09:23→20:51)
[2017-03-11] MEDS: POTASSIUM CHLORIDE 10 MEQ CAP PO SCH (09:23)
[2017-03-11] MEDS: ATORVASTATIN 20 MG TAB PO SCH (09:23)
[2017-03-11] MEDS: FUROSEMIDE 20 MG/2 ML VIAL IV PUSH SCH ×2 (09:23→17:42)
[2017-03-11] MEDS: INSULIN ASPART SUPPLEMENTAL SCALE SQ SCH ×3 (09:24→20:51)
[2017-03-11] MEDS: SODIUM CHLORIDE 0.9% FLUSH 10 ML FLUSH IV FLUSH SCH ×2 (09:24→20:45)
[2017-03-11] MEDS: RESP: ALBUTEROL 2.5 MG/IPRATROPIUM 0.5 MG NEB (SCH) NEB ×3 (09:32→20:00)
[2017-03-11] MEDS ORDERED: Vancomycin Consult Pharmacy 1 EA OTHER SCH (09:45)
[2017-03-11 10:25] LABS: AMORPHOUS SEDIMENT, URINE RARE; BACTERIA, URINE RARE /hpf; BILIRUBIN, URINE NEG (NEG); BLOOD, URINE MOD (NEG); GLUCOSE,URINE TRACE mg/dL (NEG); KETONE, URINE NEG (NEG); MUCUS URINE FEW /lpf (OCC); NITRITE,URINE NEG (NEG); RENAL EPITHELIAL CELLS <1 /hpf; SQUAMOUS EPITHELIAL CELL URINE <1 /hpf (0-5); URINE COLOR LIGHT-YELLOW (YELLW/STRAW); URINE LEUKOCYTE ESTERASE LARGE (NEG); WHITE BLOOD CELL CLUMPS FEW
--- NOTE | 2017-03-11 10:28 | HHI.PR ---
Subjective Remarks Nursing denies any deterioration since last night. Patient himself denies any new complaints. Denies any new pain. Denies any cough or any shortness of breath. Objective Vital Signs Date Time Temp Pulse Resp B/P (MAP) Pulse Ox O2 Delivery O2 Flow Rate FiO2 03/11/17 09:32 94 03/11/17 08:00 97.5 69 20 166/72 (103) 94 03/11/17 05:00 97.8 70 20 159/71 (100) 96 03/11/17 01:19 98.4 82 20 131/61 (84) 96 03/10/17 21:10 97.9 74 18 168/72 (104) 95 03/10/17 20:27 93 03/10/17 16:30 98.0 91 17 149/65 (93) 93 03/10/17 11:45 97.5 78 17 175/77 (109) 96 I/O 03/10/17 03/10/17 03/10/17 03/11/17 03/11/17 03/11/17 06:59 14:59 22:59 06:59 14:59 22:59 Intake Total 480 ml Output Total 1700 ml 1050 ml 800 ml 800 ml Balance -1700 ml -570 ml -800 ml -800 ml Intake Oral 480 ml Output Urine Total 1700 ml 1050 ml 800 ml 800 ml # Bowel Movements 1 3 2 2 Result Diagram: 03/09/17 1833 03/11/17 0735 Objective Remarks Elderly white male in no acute distress Clear lungs heard anteriorly, unlabored respiratory effort On examination of his Chew, patient has copious purulent drainage from his urethral meatus with the Chew in place; urine Chew collection container appears grossly normal A/P Assessment and Plan 1. New onset gross pyuria noted - Obtaining stat urine analysis and microscopy - We'll resort back to from doxy to vancomycin and cefuroxime to rocephin IV 2. UTI-Ecoli - continue abx as above 3. Anemia - likely worsened w/ original hematuria noted upon admission - stable at this time - improved and stable post transfusion 2 units since admission; original Hemoccult negative in ER; repeat hemoccult is POSITIVE; consulting GI. - Multifactorial with acute blood loss and anemia of chronic disease. No further workup at this time from urology standpoint 4. Possible Healthcare acquired PNA/acute respiratory insufficiency doing well on RA - continue low dose oral lasix; echo showing intact EF Continue with antibiotics - as above given new onset pyuria as opposed to continuing with oral agents deescalating steroids to oral 5. Bladder cancer -Oncology consulted, appreciate recommendations -Patient may need cystoscopy when medically stable - Discussed with urology, stable for discharge from urology standpoint with no acute surgical diagnostic or therapeutic intervention warranted; more appropriate to have patient's outpt urologist arrange a long-term plan - maintain chew, Flomax 6. Insulin-dependent diabetes mellitus Labile blood glucose Lantus to 30 units, continue SSI HDSS 7. Hypertension/hyperlipidemia Continue home medications 8. History of prostate cancer PSA within normal limits SCDs given recent hematuria Messi Cohn MD Mar 11, 2017 10:28
[2017-03-11] MEDS: PANTOPRAZOLE SOD 40 MG DELAYED RELEASE TAB PO SCH (10:39)
[2017-03-11] MEDS: predniSONE 50 MG TAB PO SCH (11:48)
--- NOTE | 2017-03-11 12:17 | PD.CONS ---
HPI History of Present Illness This is a 76 year old male with a past medical history significant for DM, hypertension, chronic Caballero, prostate cancer and bladder cancer was brought [facility] the emergency department [facility] for AMS. He is status post TURBT on September 01 and completed 4 cycles of neoadjuvant chemotherapy in January 2017. GI have been consulted for anemia and heme (+) stools. He is s/p 2 units of blood, hgb on 03/09 7.8. Pt is alert and oriented, able to provide HPI. He denies nausea, vomiting, abd pain, hematochezia or melena or hematuria. He did have hematuria on admission but no more. Endorses mild indigestion and GERD after eating. Chest x-ray showed minimal right perihilar lung opacity. Head CT negative for acute intracranial findings. CT of the abdomen/pelvis showed bilateral pleural effusions with no acute findings in the abdomen/pelvis. Not sure if he ever had colonoscopy before, but if he did, it was many yrs ago . 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 Back surgery CEA right side (Stuart Thurston) Coded Allergies: benazepril (Verified Adverse Reaction, Intermediate, Cough, 03/08/17) captopril (Verified Adverse Reaction, Intermediate, Cough, 03/08/17) enalaprilat (Verified Adverse Reaction, Intermediate, Cough, 03/08/17) fosinopril (Verified Adverse Reaction, Intermediate, Cough, 03/08/17) lisinopril (Verified Adverse Reaction, Intermediate, Cough, 03/08/17) quinapril (Verified Adverse Reaction, Intermediate, Cough, 03/08/17) Medications Current Medications Medications (Trade) Dose Ordered Sig/Myrna Route Start Time Stop Time Status Last Admin (NS Flush) 2 ml UNSCH PRN IV FLUSH 03/04/17 21:00 03/06/17 14:09 (NS Flush) 2 ml BID IV FLUSH 03/04/17 21:00 03/11/17 09:24 (Tylenol) 650 mg Q4H PRN PO 03/04/17 21:00 (Zofran Inj) 4 mg Q6H PRN IVP 03/04/17 21:00 (Narcan Inj) 0.4 mg UNSCH PRN IV PUSH 03/04/17 21:00 (Milk Of Magnsharmila Liq) 30 ml Q12H PRN PO 03/04/17 21:00 (Norvasc) 10 mg DAILY PO 03/05/17 09:00 03/11/17 09:22 (Lipitor) 20 mg DAILY PO 03/05/17 09:00 03/11/17 09:23 (Trusopt 2% Opth Soln) 1 drop BID RIGHT EYE 03/04/17 21:00 03/11/17 09:00 (Xalatan 0.005% Opth Soln) 1 drop HS RIGHT EYE 03/04/17 21:00 03/10/17 22:36 (Lopressor) 50 mg Q12HR PO 03/04/17 21:00 03/11/17 09:22 (Duoneb Neb) 1 ampule Q4HR NEB PRN NEB 03/06/17 01:15 03/06/17 18:46 (Lasix Inj) 20 mg BID@09,18 IV PUSH 03/07/17 09:00 03/11/17 09:23 (KCl) 10 meq DAILY PO 03/07/17 09:00 03/11/17 09:23 Miscellaneous Information Patient in critical care unit? Ass... Q361D .XX 03/07/17 17:00 (Chlorhexidine 2% Cloth) 3 pack DAILY@04 TOPICAL 03/08/17 04:00 03/12/17 04:01 03/08/17 01:00 (Chlorhexidine 2% Cloth) 3 pack UNSCH PRN TOPICAL 03/07/17 17:00 03/12/17 16:48 (Levemir Inj) 30 units DAILY SQ 03/09/17 09:00 03/11/17 09:23 (D50w (Vial) Inj) 50 ml UNSCH PRN IV PUSH 03/09/17 00:30 (Glucagon Inj) 1 mg UNSCH PRN OTHER 03/09/17 00:30 (Duoneb Neb) 1 ampule Q6HR WHILE AWAKE NEB NEB 03/09/17 14:00 03/11/17 09:32 (Cozaar) 25 mg DAILY PO 03/10/17 11:45 03/11/17 09:22 (Flomax) 0.4 mg DAILY PO 03/10/17 11:45 03/11/17 09:22 (NovoLOG SUPPLEMENTAL SCALE) 1 ACHS SLIDING SCALE SQ 03/10/17 21:00 03/11/17 09:24 (Levemir Inj) 25 units HS SQ 03/11/17 21:00 (Deltasone) 50 mg DAILY PO 03/11/17 12:00 03/11/17 11:48 Pharmacy Profile Note 0 ml @ 0 mls/hr UNSCH OTHER 03/11/17 09:45 Ceftriaxone Sodium 1000 mg/ Sodium Chloride 100 ml @ 200 mls/hr Q24H IV 03/11/17 21:00 (Protonix) 40 mg DAILY PO 03/11/17 10:30 03/11/17 10:39 Family History No family history of colon cancer Social History 20 pack year history of smoking, quit 30 years ago. Denies alcohol or illicit drugs. (Stuart Thurston) Review of Systems Constitutional: COMPLAINS OF: Fatigue, DENIES: Dizziness Eyes: DENIES: Double Vision Ears, nose, mouth, throat: DENIES: Hoarseness Respiratory: DENIES: Shortness of breath Cardiovascular: DENIES: Lower Extremity Edema Gastrointestinal: COMPLAINS OF: Heartburn, DENIES: Abdominal pain, Black stools , Bloody stools, Constipation, Diarrhea, Nausea, Vomiting, Difficulty Swallowing , Anorexia, Odynophagia, Swelling of Abdomen, Hematemesis Genitourinary: DENIES: Hematuria Musculoskeletal: DENIES: Neck pain Integumentary: DENIES: Jaundice Hematologic/lymphatic: DENIES: Bruising Immunologic/allergic: DENIES: Eczema Neurologic: DENIES: Abnormal gait Psychiatric: DENIES: Anxiety (Stuart Thurston) GI Exam Vitals I&O Vital Signs Date Time Temp Pulse Resp B/P (MAP) Pulse Ox O2 Delivery O2 Flow Rate FiO2 03/11/17 09:32 94 03/11/17 08:00 97.5 69 20 166/72 (103) 94 03/11/17 05:00 97.8 70 20 159/71 (100) 96 03/11/17 01:19 98.4 82 20 131/61 (84) 96 03/10/17 21:10 97.9 74 18 168/72 (104) 95 03/10/17 20:27 93 03/10/17 16:30 98.0 91 17 149/65 (93) 93 I/O 03/10/17 03/10/17 03/10/17 03/11/17 03/11/17 03/11/17 07:00 15:00 23:00 07:00 15:00 23:00 Intake Total 480 ml Output Total 1700 ml 1050 ml 800 ml 800 ml Balance -1700 ml -570 ml -800 ml -800 ml Intake Oral 480 ml Output Urine Total 1700 ml 1050 ml 800 ml 800 ml # Bowel Movements 1 3 2 2 Imaging Last Impressions Chest X-Ray 03/06/17 0000 Signed Impressions: Service Date/Time: Monday, March 06, 2017 18:51 - CONCLUSION: Mild pulmonary edema with slight increase from the prior study. Corby Melendez MD Brain MRI 03/05/17 0000 Signed Impressions: Service Date/Time: Sunday, March 05, 2017 11:28 - CONCLUSION: Moderate motion artifact. Negative for acute ischemic event. Atrophy with periventricular changes. Bennett Ibarra MD FACR Abdomen/Pelvis CT 03/04/17 1742 Signed Impressions: Service Date/Time: Saturday, March 04, 2017 18:28 - CONCLUSION: 1. Bilateral pleural effusions small to moderate in size. 2. No acute findings in the abdomen and pelvis. Corby Melendez MD Head CT 03/04/17 1732 Signed Impressions: Service Date/Time: Saturday, March 04, 2017 18:18 - CONCLUSION: No acute intracranial findings. Partial opacification of right sided mastoid air cells new. Corby Melendez MD Laboratory Test 03/10/17 16:57 03/10/17 22:38 03/11/17 07:35 03/11/17 09:42 Fasting Glucose 488 MG/DL Random Glucose 442 MG/DL Creatinine 1.23 MG/DL Estimat Glomerular Filtration Rate 57 ML/MIN Urine Color LIGHT-YELLOW Urine Turbidity HAZY Urine pH 6.0 Urine Specific [place] 1.017 Urine Protein 300 mg/dL Urine Glucose (UA) TRACE mg/dL Urine Ketones NEG mg/dL Urine Occult Blood MOD Urine Nitrite NEG Urine Bilirubin NEG Urine Urobilinogen LESS THAN 2.0 MG/DL Urine Leukocyte Esterase LARGE Urine RBC 42 /hpf Urine WBC 88 /hpf Urine WBC Clumps FEW Urine Squamous Epithelial Cells <1 /hpf Urine Renal Epithelial Cells <1 /hpf Urine Amorphous Sediment RARE Urine Bacteria RARE /hpf Urine Mucus FEW /lpf Microscopic Urinalysis Comment CATH-CULTURE IND Date/Time Source Procedure Growth Status 03/04/17 17:04 Blood Peripheral Aerobic Blood Culture - Final NO GROWTH IN 5 DAYS Complete 03/04/17 17:04 Blood Peripheral Anaerobic Blood Culture - Final NO GROWTH IN 5 DAYS Complete 03/11/17 03:00 Stool Stool Stool Occult Blood (SANGEETA) - Final HEMOCCULT POSITIVE Complete 03/04/17 20:50 Nasal Washing Influenza Types A,B Antigen (SANGEETA) - Final NEGATIVE FOR FLU A AND B ANTIGEN.... Complete 03/11/17 09:42 Urine Clean Catch Urine Culture Pending Received 03/05/17 03:35 Abscess Leg Gram Stain - Final Complete 03/05/17 03:35 Wound Culture - Final Staphylococcus Aureus Complete Physical Examination HEENT: normocephalic; atraumatic; no jaundice. CHEST: Chest is clear to auscultation and percussion. CARDIAC: Regular rate and rhythm with no murmur gallop or rubs. ABDOMEN: Soft, nondistended, nontender; no hepatosplenomegaly; bowel sounds are present in all four quadrants. EXTREMITIES: No clubbing, cyanosis, or edema. EMT DRIVER: No focal deficits; alert and oriented times three. (Stuart Thurston) Assessment and Plan Plan - Anemia and heme (+) stools. Could be multifactorial, anemia of chronic dz or due to hematuria. He is s/p 2 units of blood, hgb on 03/09 7.8. Pt is alert and oriented, able to provide HPI. He denies nausea, vomiting, abd pain, hematochezia or melena or hematuria. He did have hematuria on admission but no more. Endorses mild indigestion and GERD after eating. No recent colonoscopy CT of the abdomen/pelvis showed bilateral pleural effusions with no acute findings in the abdomen/pelvis - Hx of bladder cancer He is status post TURBT on September 01 and completed 4 cycles of neoadjuvant chemotherapy in January 2017. Oncology on the case - AMS- Resolved - UTI, chronic Caballero, on abx - Possible PNA- stable on room air - DM, hypertension per attending Plan: - IDA - EGD/colonoscopy on Monday - Obtain consents - CBC - Monitor hh - Transfuse as needed - Patient seen and examined by Dr. Kwok and myself and this note is written on his behalf. (Stuart Thurston) Physician Comments Seen and examined, plan as above. For EGD/ Colonoscopy Monday. (Ale Kwok MD) Stuart Thurston Mar 11, 2017 12:17 Ale Kwok MD Mar 11, 2017 12:46
[2017-03-11 16:48] LABS: AUTOMATED NEUTROPHIL # 15.7 TH/MM3 (1.8-7.7); LYMPH % 4.5 % (9.0-44.0); LYMPHOCYTE # 0.8 TH/MM3 (1.0-4.8); MEAN CELL VOLUME 87.6 FL (80.0-100.0); MEAN CORPUSCULAR HEMOGLOBIN 28.4 PG (27.0-34.0); MEAN CORPUSCULAR HGB CONC 32.4 % (32.0-36.0); MEAN PLATELET VOLUME 8.3 FL (7.0-11.0); MONO % 2.2 % (0.0-8.0); MONOCYTE # 0.4 TH/MM3 (0-0.9); NEUT % 93.3 % (16.0-70.0); PLATELET COUNT 307 TH/MM3 (150-450); RED BLOOD COUNT 2.24 MIL/MM3 (4.50-5.90); RED CELL DISTRIBUTION WIDTH 17.7 % (11.6-17.2); WHITE BLOOD COUNT 16.8 TH/MM3 (4.0-11.0)
[2017-03-11 17:09] LABS: HEMATOCRIT 19.6 % (39.0-51.0); HEMOGLOBIN 6.3 GM/DL (13.0-17.0)
[2017-03-11] MEDS ORDERED: SODIUM CHLOR 0.9% 250 ML INJ 250 ML IV ONE (18:00)
[2017-03-11] MEDS: LATANOPROST 0.005% OPHT SOLN 2.5 ML BTL RIGHT EYE SCH (20:45)
[2017-03-11] MEDS ORDERED: cefTRIAXone INJ 1,000 MG in SODIUM CHLORIDE 0.9% INJ 100 ML IV SCH (21:00)
[2017-03-11] MEDS ORDERED: INSULIN DETEMIR 100 UNITS/ML VIAL SQ SCH (21:00)
[2017-03-12] VITALS (18 sets, daily range): BP systolic 120–195; BP diastolic 57–84; PULSE 61–88; RESP 17–19; TEMP 97.1–98.2; O2SAT 92–97
[2017-03-12] MEDS: CHLORHEXIDINE GLUCONATE 2 % 1 PACK (2 CLOTHS)(taper/protocol) TOPICAL SCH (04:00)
[2017-03-12] MEDS: RESP: ALBUTEROL 2.5 MG/IPRATROPIUM 0.5 MG NEB (SCH) NEB ×2 (08:00→21:41)
[2017-03-12] MEDS: predniSONE 50 MG TAB PO SCH (08:37)
[2017-03-12] MEDS: ATORVASTATIN 20 MG TAB PO SCH (08:37)
[2017-03-12] MEDS: TAMSULOSIN HCL 0.4 MG CAP PO SCH (08:37)
[2017-03-12] MEDS: POTASSIUM CHLORIDE 10 MEQ CAP PO SCH (08:37)
[2017-03-12] MEDS: INSULIN DETEMIR 100 UNITS/ML VIAL SQ SCH ×2 (08:37→22:22)
[2017-03-12] MEDS: LOSARTAN 25 MG TAB PO SCH (08:37)
[2017-03-12] MEDS: PANTOPRAZOLE SOD 40 MG DELAYED RELEASE TAB PO SCH (08:37)
[2017-03-12] MEDS: METOPROLOL TARTRATE 50 MG TAB PO SCH ×2 (08:37→22:22)
[2017-03-12] MEDS: INSULIN ASPART SUPPLEMENTAL SCALE SQ SCH ×4 (08:38→22:22)
[2017-03-12] MEDS: FUROSEMIDE 20 MG/2 ML VIAL IV PUSH SCH ×2 (08:38→17:23)
[2017-03-12] MEDS: SODIUM CHLORIDE 0.9% FLUSH 10 ML FLUSH IV FLUSH SCH ×2 (08:38→22:21)
[2017-03-12] MEDS: DORZOLAMIDE 2% OPTH SOLN 200 DROP/10 ML BTLO RIGHT EYE SCH ×2 (08:38→22:23)
[2017-03-12] MEDS ORDERED: SODIUM CHLOR 0.9% 250 ML INJ 250 ML IV ONE (11:45)
--- NOTE | 2017-03-12 11:50 | HHI.PR ---
Subjective Remarks Nursing reports that the patient did have difficulty getting his blood product last night he has his port site was infiltrating so his first unit was not successfully administered. Nursing does report that he has had still revealing drainage but less compared to yesterday from his urethral meatus. Patient himself denies any abdominal pain. Denies any shortness of breath. When I examine his genitourinary area, he reports pain on his left thigh with palpation and his left testicle. Objective Vital Signs Date Time Temp Pulse Resp B/P (MAP) Pulse Ox O2 Delivery O2 Flow Rate FiO2 03/12/17 08:31 98.0 68 17 158/67 (97) 93 03/12/17 04:16 98.2 70 18 132/62 (85) 92 03/12/17 04:00 97.2 88 18 161/67 (98) 97 03/12/17 01:52 98.2 65 18 120/84 (96) 96 03/12/17 00:46 97.8 66 18 164/70 96 03/12/17 00:00 97.7 72 18 171/72 (105) 97 03/11/17 23:59 97.8 68 18 164/64 97 03/11/17 23:33 97.7 97 16 171/72 03/11/17 20:00 98.1 76 18 178/72 (107) 97 03/11/17 16:00 97.9 78 19 136/75 (95) 94 03/11/17 12:00 98.6 76 19 120/58 (78) 94 I/O 03/11/17 03/11/17 03/11/17 03/12/17 03/12/17 03/12/17 07:00 15:00 23:00 07:00 15:00 23:00 Intake Total 840 ml 943 ml Output Total 800 ml 825 ml 800 ml Balance -800 ml 15 ml 143 ml Intake Oral 840 ml 240 ml Packed Cells 603 ml Blood Product IV Normal Saline Flush 100 ml Output Urine Total 800 ml 825 ml 800 ml # Bowel Movements 2 1 1 Result Diagram: 03/11/17 1615 03/11/17 0735 Objective Remarks Elderly white male in no acute distress Lung sounds today demonstrate mixture crackles and rhonchi bilateral lower fraga anteriorly although respiratory effort is unlabored On examination of his Chew, the urethral meatus site looks clean. Patient has no tenderness to palpation over the glans or shaft penis, but he does have tenderness on the left testicle is palpated, normal right testicle. Mild left- sided tenderness palpation with no overlying skin discoloration. A/P Assessment and Plan 1. gross pyuria - improving. UC is negative. suspect sterils pyuria vs epididymitis (based on tender testicle). switching from rocephin to bactrim given more prostate/instrumentation etiology. Last UC of staph on 03/04 was resistant to fluoroquinolones. Bactrim DS. 2. Suspected GI bleed given anemia and positive Hemoccult - Gastroenterology following, plans for colonoscopy on Monday 3. Anemia - likely worsened w/ original hematuria noted upon admission - stable at this time - s/p 2 units since admission; 2 more units pending transfusion given low h/h yesterday; see above 4. Possible Healthcare acquired PNA - improving doing well on RA - continue low dose oral lasix; echo showing intact EF Continue with antibiotics oral steroids - tapering. repeat CXR today given persistent abnl BS 5. Bladder cancer - Oncology consulted, appreciate recommendations - Patient may need cystoscopy when medically stable - Discussed with urology, stable for discharge from urology standpoint with no acute surgical diagnostic or therapeutic intervention warranted; more appropriate to have patient's outpt urologist arrange a long-term plan - chew changed today 6. Insulin-dependent diabetes mellitus Labile blood glucose Lantus to 30 units, continue SSI lower to MDSS 7. Hypertension/hyperlipidemia Continue home medications 8. History of prostate cancer PSA within normal limits SCDs given suspected GI bleed PT/OT Messi Cohn MD Mar 12, 2017 11:50
[2017-03-12 12:35] LABS: AUTOMATED NEUTROPHIL # 18.1 TH/MM3 (1.8-7.7); BASOPHIL % 0.1 % (0.0-2.0); LYMPH % 4.5 % (9.0-44.0); LYMPHOCYTE # 0.9 TH/MM3 (1.0-4.8); MEAN CELL VOLUME 86.2 FL (80.0-100.0); MEAN CORPUSCULAR HEMOGLOBIN 27.7 PG (27.0-34.0); MEAN CORPUSCULAR HGB CONC 32.2 % (32.0-36.0); MEAN PLATELET VOLUME 8.3 FL (7.0-11.0); MONO % 4.6 % (0.0-8.0); MONOCYTE # 0.9 TH/MM3 (0-0.9); NEUT % 90.8 % (16.0-70.0); PLATELET COUNT 298 TH/MM3 (150-450); RED BLOOD COUNT 2.06 MIL/MM3 (4.50-5.90); RED CELL DISTRIBUTION WIDTH 17.7 % (11.6-17.2)
[2017-03-12 12:41] LABS: HEMATOCRIT 17.7 % (39.0-51.0); HEMOGLOBIN 5.7 GM/DL (13.0-17.0)
--- NOTE | 2017-03-12 13:50 | HHI.GIFU ---
Subjective Remarks Severe anemia, requiring transfusion today Pale color Dark stools today Daughter in room Appears to have some altered mental status, could be due to low hemoglobin (Krissy Gamino) Objective Vitals I&O Vital Signs Date Time Temp Pulse Resp B/P (MAP) Pulse Ox O2 Delivery O2 Flow Rate FiO2 03/12/17 12:57 97.7 63 18 137/61 95 03/12/17 12:45 98.0 63 18 146/62 95 03/12/17 12:30 97.5 65 17 127/60 93 03/12/17 12:00 97.9 65 19 149/82 (104) 93 03/12/17 08:31 98.0 68 17 158/67 (97) 93 03/12/17 04:16 98.2 70 18 132/62 (85) 92 03/12/17 04:00 97.2 88 18 161/67 (98) 97 03/12/17 01:52 98.2 65 18 120/84 (96) 96 03/12/17 00:46 97.8 66 18 164/70 96 03/12/17 00:00 97.7 72 18 171/72 (105) 97 03/11/17 23:59 97.8 68 18 164/64 97 03/11/17 23:33 97.7 97 16 171/72 03/11/17 20:00 98.1 76 18 178/72 (107) 97 03/11/17 16:00 97.9 78 19 136/75 (95) 94 I/O 03/11/17 03/11/17 03/11/17 03/12/17 03/12/17 03/12/17 07:00 15:00 23:00 07:00 15:00 23:00 Intake Total 840 ml 943 ml 453982 ml Output Total 800 ml 825 ml 800 ml Balance -800 ml 15 ml 143 ml 240691 ml Intake Oral 840 ml 240 ml Packed Cells 603 ml Blood Product IV Normal Saline Flush 100 ml 625351 ml Output Urine Total 800 ml 825 ml 800 ml # Bowel Movements 2 1 1 Laboratory Laboratory Tests Test 03/11/17 16:15 03/12/17 07:23 03/12/17 11:15 White Blood Count 16.8 20.0 Red Blood Count 2.24 2.06 Hemoglobin 6.3 5.7 Hematocrit 19.6 17.7 Mean Corpuscular Volume 87.6 86.2 Mean Corpuscular Hemoglobin 28.4 27.7 Mean Corpuscular Hemoglobin Concent 32.4 32.2 Red Cell Distribution Width 17.7 17.7 Platelet Count 307 298 Mean Platelet Volume 8.3 8.3 Neutrophils (%) (Auto) 93.3 90.8 Lymphocytes (%) (Auto) 4.5 4.5 Monocytes (%) (Auto) 2.2 4.6 Eosinophils (%) (Auto) 0.0 0.0 Basophils (%) (Auto) 0.0 0.1 Neutrophils # (Auto) 15.7 18.1 Lymphocytes # (Auto) 0.8 0.9 Monocytes # (Auto) 0.4 0.9 Eosinophils # (Auto) 0.0 0.0 Basophils # (Auto) 0.0 0.0 CBC Comment DIFF FINAL DIFF FINAL Differential Comment Random Vancomycin Level 11.4 Date/Time Source Procedure Growth Status 03/04/17 17:04 Blood Peripheral Aerobic Blood Culture - Final NO GROWTH IN 5 DAYS Complete 03/04/17 17:04 Blood Peripheral Anaerobic Blood Culture - Final NO GROWTH IN 5 DAYS Complete 03/11/17 03:00 Stool Stool Stool Occult Blood (SANGEETA) - Final HEMOCCULT POSITIVE Complete 03/04/17 20:50 Nasal Washing Influenza Types A,B Antigen (SANGEETA) - Final NEGATIVE FOR FLU A AND B ANTIGEN.... Complete 03/11/17 09:42 Urine Clean Catch Urine Culture - Preliminary NO GROWTH IN 24 HOURS. Resulted 03/05/17 03:35 Abscess Leg Gram Stain - Final Complete 03/05/17 03:35 Wound Culture - Final Staphylococcus Aureus Complete Imaging Last Impressions Chest X-Ray 03/06/17 0000 Signed Impressions: Service Date/Time: Monday, March 06, 2017 18:51 - CONCLUSION: Mild pulmonary edema with slight increase from the prior study. Corby Melendez MD Brain MRI 03/05/17 0000 Signed Impressions: Service Date/Time: Sunday, March 05, 2017 11:28 - CONCLUSION: Moderate motion artifact. Negative for acute ischemic event. Atrophy with periventricular changes. Bennett Ibarra MD FACR Abdomen/Pelvis CT 03/04/17 1182 Signed Impressions: Service Date/Time: Saturday, March 04, 2017 18:28 - CONCLUSION: 1. Bilateral pleural effusions small to moderate in size. 2. No acute findings in the abdomen and pelvis. Corby Melendez MD Head CT 03/04/17 8942 Signed Impressions: Service Date/Time: Saturday, March 04, 2017 18:18 - CONCLUSION: No acute intracranial findings. Partial opacification of right sided mastoid air cells new. Corby Melendez MD Physical Exam HEENT: Pupils round and reactive to light; normocephalic; atraumatic; NECK: Neck is supple, no JVD, no lymphadenopathy. CHEST: Chest is clear to auscultation and percussion. CARDIAC: Regular rate and rhythm with no murmur gallop or rubs. ABDOMEN: Soft, nondistended, nontender; bowel sounds are soft EXTREMITIES: No clubbing, cyanosis, or edema. SKIN: Normal; no rash; pale WIRE LATHER: No focal deficits; awake but not answering all questions appropriately (Krissy Gamino) Assessment and Plan Plan - Anemia and heme (+) stools. Could be multifactorial, anemia of chronic dz and or GI bleed He is s/p 2 units of blood, hgb on 03/09 7.8. Receiving more blood today hemoglobin continues to drop He denies nausea, vomiting, abd pain, stools are dark according to nursing staff He did have hematuria on admission No recent colonoscopy CT of the abdomen/pelvis showed bilateral pleural effusions with no acute findings in the abdomen/pelvis - Hx of bladder cancer He is status post TURBT on September 01 and completed 4 cycles of neoadjuvant chemotherapy in January 2017. Oncology on the case - AMS- continues today, has been transient off and on and could be related to low hemoglobin - UTI, chronic Caballero, on abx Plan: - IDA Transfusion today, and continue to monitor for any bright red bleeding - EGD/colonoscopy on Monday Sofi ordered Nothing by mouth at midnight on 03/14/17 for EGD and colonoscopy Clear liquid diet tomorrow with no red Jell-O - Obtain consents - CBC in a.m. - Monitor hh Plan of care will be based on patient's current symptoms and lab findings - Patient seen and examined by Dr. Kwok and myself and this note is written on his behalf. (Krissy Gamino) Physician Comments Agree with the plan as above, will need transfusion and panendoscopy luh. (Ale Kwok MD) Krissy Gamino Mar 12, 2017 13:50 Ale Kwok MD Mar 12, 2017 17:58
--- NOTE | 2017-03-12 16:29 | RADRPT ---
EXAM DATE/TIME: 03/12/2017 15:50 [facility] COMPARISON: CHEST SINGLE AP, March 06, 2017, 18:51. INDICATIONS : Shortness of breath. MEDICAL HISTORY : Stroke. Carcinoma, bladder. Hypertension.diabetes SURGICAL HISTORY : Cholecystectomy. Thyroid surgery. ENCOUNTER: Initial ACUITY: 1 day PAIN SCORE: 0/10 LOCATION: Bilateral chest FINDINGS: Tiny bilateral pleural effusions are present. Previously seen pulmonary edema has resolved. Right IJ Anejpf-y-Bacs is present with tip overlapping the expected region of the SVC. Heart and mediastinum a re unremarkable for technique. CONCLUSION: Tiny bilateral pleural effusions. Arturo Mariscal MD on March 12, 2017 at 16:27 Board Certified Radiologist. This report was verified electronically.
[2017-03-12] MEDS: SULFAMETHOXAZOLE-TRIMETHOPRIM DS 800-160 MG TAB PO SCH (17:21)
[2017-03-12] MEDS: VANCOMYCIN INJ 1,250 MG in SODIUM CHLOR 0.9% 250 ML INJ 250 ML IV SCH (20:17)
[2017-03-12] MEDS: LATANOPROST 0.005% OPHT SOLN 2.5 ML BTL RIGHT EYE SCH (22:23)
[2017-03-13] VITALS (7 sets, daily range): BP systolic 119–185; BP diastolic 54–79; PULSE 61–78; RESP 18–19; TEMP 97.2–98.1; O2SAT 90–97
[2017-03-13 00:23] LABS: HEMATOCRIT 26.2 % (39.0-51.0); HEMOGLOBIN 8.9 GM/DL (13.0-17.0)
[2017-03-13] MEDS: SULFAMETHOXAZOLE-TRIMETHOPRIM DS 800-160 MG TAB PO SCH ×2 (05:38→15:37)
[2017-03-13 07:53] LABS: AUTOMATED NEUTROPHIL # 13.6 TH/MM3 (1.8-7.7); BASOPHIL % 0.1 % (0.0-2.0); HEMATOCRIT 26.3 % (39.0-51.0); LYMPH % 8.3 % (9.0-44.0); LYMPHOCYTE # 1.4 TH/MM3 (1.0-4.8); MEAN CELL VOLUME 84.9 FL (80.0-100.0); MEAN CORPUSCULAR HEMOGLOBIN 29.1 PG (27.0-34.0); MEAN CORPUSCULAR HGB CONC 34.3 % (32.0-36.0); MEAN PLATELET VOLUME 8.5 FL (7.0-11.0); MONOCYTE # 1.3 TH/MM3 (0-0.9); NEUT % 83.6 % (16.0-70.0); PLATELET COUNT 275 TH/MM3 (150-450); RED CELL DISTRIBUTION WIDTH 15.8 % (11.6-17.2); WHITE BLOOD COUNT 16.3 TH/MM3 (4.0-11.0)
[2017-03-13] MEDS: INSULIN ASPART SUPPLEMENTAL SCALE SQ SCH ×4 (08:00→21:00)
[2017-03-13 08:15] LABS: CREATININE 1.09 MG/DL (0.60-1.30)
--- NOTE | 2017-03-13 08:28 | HHI.PR ---
Subjective Remarks In Bed says she carrillo no BM. No abd pain . No n/v/d/c. Denies fever or chills. Objective Vitals Vital Signs Date Time Temp Pulse Resp B/P (MAP) Pulse Ox O2 Delivery O2 Flow Rate FiO2 03/13/17 06:30 97.2 64 19 143/63 (89) 94 03/13/17 01:18 97.3 70 18 123/54 (77) 96 03/12/17 21:43 92 03/12/17 21:33 97.1 69 19 167/62 (97) 97 03/12/17 20:00 97.1 68 18 175/74 94 03/12/17 17:50 61 157/70 95 03/12/17 17:35 63 150/57 92 03/12/17 17:20 97.5 64 19 179/77 96 03/12/17 17:07 97.6 64 18 195/77 93 03/12/17 15:59 97.6 65 19 143/66 (91) 95 03/12/17 12:57 97.7 63 18 137/61 95 03/12/17 12:45 98.0 63 18 146/62 95 03/12/17 12:30 97.5 65 17 127/60 93 03/12/17 12:00 97.9 65 19 149/82 (104) 93 03/12/17 08:31 98.0 68 17 158/67 (97) 93 I/O 03/12/17 03/12/17 03/12/17 03/13/17 03/13/17 03/13/17 07:00 15:00 23:00 07:00 15:00 23:00 Intake Total 943 ml 111894 ml 810 ml Output Total 800 ml 1250 ml 500 ml Balance 143 ml 709692 ml 810 ml -500 ml Intake Oral 240 ml 960 ml Packed Cells 603 ml 800 ml Blood Product IV Normal Saline Flush 100 ml 006065 ml 10 ml Output Urine Total 800 ml 1250 ml 500 ml # Voids 1 # Bowel Movements 1 1 Result Diagram: 03/13/17 0716 03/13/17 0716 Imaging Last Impressions Chest X-Ray 03/12/17 0000 Signed Impressions: Service Date/Time: Sunday, March 12, 2017 15:50 - CONCLUSION: Tiny bilateral pleural effusions. KTanisha Mariscal MD Brain MRI 03/05/17 0000 Signed Impressions: Service Date/Time: Sunday, March 05, 2017 11:28 - CONCLUSION: Moderate motion artifact. Negative for acute ischemic event. Atrophy with periventricular changes. Bennett Ibarra MD FACR Abdomen/Pelvis CT 03/04/17 1742 Signed Impressions: Service Date/Time: Saturday, March 04, 2017 18:28 - CONCLUSION: 1. Bilateral pleural effusions small to moderate in size. 2. No acute findings in the abdomen and pelvis. Corby Melendez MD Head CT 03/04/17 1732 Signed Impressions: Service Date/Time: Saturday, March 04, 2017 18:18 - CONCLUSION: No acute intracranial findings. Partial opacification of right sided mastoid air cells new. Corby Melendez MD Objective Remarks GENERAL: Elderly male appears in no acute distress CARDIOVASCULAR: Regular rate and rhythm. RESPIRATORY: Lung with bibasilar crackles and rhonchi. no wheezing. No accessory muscle use. GASTROINTESTINAL: Abdomen soft, non-tender, nondistended. Hepatic and splenic margins not palpable. MUSCULOSKELETAL: Extremities without clubbing, cyanosis, or edema. No obvious deformities. NEUROLOGICAL: Awake and alert. No obvious cranial nerve deficits. Motor grossly within normal limits. Five out of 5 muscle strength in the arms and legs. Normal speech. PSYCHIATRIC: Appropriate mood and affect; insight and judgment normal. GENITOURINARY: Chew, the urethral meatus site looks clean. Patient has no tenderness to palpation over the glans or shaft penis, but he does have tenderness on the left testicle is palpated, normal right testicle. Mild left- sided tenderness palpation with no overlying skin discoloration. A/P Problem List: (1) Catheter-associated urinary tract infection ICD Code: T83.511A - Infection and inflammatory reaction due to indwelling urethral catheter, initial encounter; N39.0 - Urinary tract infection, site not specified Status: Acute (2) Metabolic encephalopathy ICD Code: G93.41 - Metabolic encephalopathy Status: Acute Assessment and Plan Gross pyuria - improving. UC is negative. suspect steryl pyuria vs epididymitis (based on tender testicle). switching from rocephin to bactrim given more prostate/instrumentation etiology. Last UC of staph on 03/04 was resistant to fluoroquinolones. Bactrim DS. Suspected GI bleed given anemia and positive Hemoccult - Gastroenterology following, plans for colonoscopy on Monday03/14/16 Anemia - likely worsened w/ original hematuria noted upon admission - stable at this time - s/p total of 4 units since admission; Monitor H/H and transfuse if symptomatic or if HGB < 7 Possible Healthcare acquired PNA - improving doing well on RA - continue low dose oral lasix; echo showing intact EF Continue with antibiotics oral steroids - tapering. repeat CXR today given persistent abnl BS Bladder cancer - Oncology consulted, appreciate recommendations - Patient may need cystoscopy when medically stable - Discussed with urology, stable for discharge from urology standpoint with no acute surgical diagnostic or therapeutic intervention warranted; more appropriate to have patient's outpt urologist arrange a long-term plan - chew changed today Insulin-dependent diabetes mellitus Labile blood glucose Lantus to 30 units, continue SSI lower to MDSS Hypertension/hyperlipidemia Continue home medications History of prostate cancer PSA within normal limits SCDs given suspected GI bleed PT/OT DC plan: pending improvement wprk up in progress GIB plan for colonoscopy on Mon03/14/16 Suzanna Koehler MD Mar 13, 2017 08:28
[2017-03-13] MEDS ORDERED: predniSONE 20 MG TAB PO ONE (09:00)
[2017-03-13] MEDS: RESP: ALBUTEROL 2.5 MG/IPRATROPIUM 0.5 MG NEB (SCH) NEB ×2 (09:02→13:49)
[2017-03-13] MEDS: METOPROLOL TARTRATE 50 MG TAB PO SCH ×2 (09:10→22:57)
[2017-03-13] MEDS: LOSARTAN 25 MG TAB PO SCH (09:11)
[2017-03-13] MEDS: FUROSEMIDE 20 MG/2 ML VIAL IV PUSH SCH ×2 (09:11→18:00)
[2017-03-13] MEDS: PANTOPRAZOLE SOD 40 MG DELAYED RELEASE TAB PO SCH (09:11)
[2017-03-13] MEDS: ATORVASTATIN 20 MG TAB PO SCH (09:11)
[2017-03-13] MEDS: predniSONE 50 MG TAB PO SCH (09:11)
[2017-03-13] MEDS: TAMSULOSIN HCL 0.4 MG CAP PO SCH (09:11)
[2017-03-13] MEDS: INSULIN DETEMIR 100 UNITS/ML VIAL SQ SCH ×2 (09:12→21:00)
[2017-03-13] MEDS: DORZOLAMIDE 2% OPTH SOLN 200 DROP/10 ML BTLO RIGHT EYE SCH ×2 (09:12→22:59)
[2017-03-13] MEDS: SODIUM CHLORIDE 0.9% FLUSH 10 ML FLUSH IV FLUSH SCH ×2 (09:13→21:00)
[2017-03-13] MEDS: POTASSIUM CHLORIDE 10 MEQ CAP PO SCH (09:17)
[2017-03-13] MEDS ORDERED: PEG (High)/E-LYTE SOLN 4000 ML BTL PO ONE (16:00)
[2017-03-13] MEDS ORDERED: CALCIUM CARBONATE 500 MG CHEWABLE TAB PO PRN (19:00)
[2017-03-13] MEDS ORDERED: FAMOTIDINE 20 MG TAB PO ONE (19:00)
[2017-03-13] MEDS: LATANOPROST 0.005% OPHT SOLN 2.5 ML BTL RIGHT EYE SCH (22:59)
[2017-03-14] VITALS: BP 139/65; PULSE 76; RESP 21; TEMP 97.3; O2SAT 92
[2017-03-14 04:00] VITALS: BP 164/72; PULSE 71; RESP 20; TEMP 97.7; O2SAT 97
[2017-03-14] MEDS: SULFAMETHOXAZOLE-TRIMETHOPRIM DS 800-160 MG TAB PO SCH ×2 (06:20→17:08)
[2017-03-14] MEDS: VANCOMYCIN INJ 1,250 MG in SODIUM CHLOR 0.9% 250 ML INJ 250 ML IV SCH (06:20)
[2017-03-14 06:57] LABS: AUTOMATED NEUTROPHIL # 14.3 TH/MM3 (1.8-7.7); BASOPHIL % 0.1 % (0.0-2.0); HEMATOCRIT 27.1 % (39.0-51.0); LYMPH % 4.6 % (9.0-44.0); LYMPHOCYTE # 0.7 TH/MM3 (1.0-4.8); MEAN CELL VOLUME 85.2 FL (80.0-100.0); MEAN CORPUSCULAR HEMOGLOBIN 28.3 PG (27.0-34.0); MEAN CORPUSCULAR HGB CONC 33.3 % (32.0-36.0); MEAN PLATELET VOLUME 8.4 FL (7.0-11.0); MONO % 3.8 % (0.0-8.0); MONOCYTE # 0.6 TH/MM3 (0-0.9); NEUT % 91.5 % (16.0-70.0); PLATELET COUNT 285 TH/MM3 (150-450); RED BLOOD COUNT 3.18 MIL/MM3 (4.50-5.90); WHITE BLOOD COUNT 15.6 TH/MM3 (4.0-11.0)
[2017-03-14 07:29] LABS: BICARBONATE 26.9 MEQ/L (21.0-32.0); CALCIUM 7.3 MG/DL (8.5-10.1); CREATININE 1.24 MG/DL (0.60-1.30)
[2017-03-14] MEDS: INSULIN ASPART SUPPLEMENTAL SCALE SQ SCH ×4 (07:30→21:40)
[2017-03-14 08:01] LABS: CALCIUM-PROTEIN CORRECTED 8.8 MG/DL (8.5-10.1); TOTAL PROTEIN 4.4 GM/DL (6.4-8.2)
[2017-03-14] MEDS: DEXTROSE 50% IN WATER 50 ML VIAL(D50) IV PUSH PRN (08:11)
[2017-03-14 08:20] VITALS: BP 156/76; PULSE 65; RESP 20; TEMP 97.6; O2SAT 93
--- NOTE | 2017-03-14 08:37 | HHI.PR ---
Subjective Remarks And only 2 bowel movements overnight. He is not drinking the bowel prep and the GI might postpone the procedure today. The patient says he had loose stool and diarrhea no blood in it. No abdominal pain. He'll sleep, no chest pain or shortness of breath Objective Vitals Vital Signs Date Time Temp Pulse Resp B/P (MAP) Pulse Ox O2 Delivery O2 Flow Rate FiO2 03/14/17 08:20 97.6 65 20 156/76 (102) 93 03/14/17 04:00 97.7 71 20 164/72 (102) 97 03/14/17 00:00 97.3 76 21 139/65 (89) 92 03/13/17 20:00 97.5 78 19 119/58 (78) 94 03/13/17 16:33 97.4 72 18 154/70 (98) 93 03/13/17 12:10 97.3 66 18 169/71 (103) 90 03/13/17 09:02 97 03/13/17 08:42 98.1 61 18 185/79 (114) 93 I/O 03/13/17 03/13/17 03/13/17 03/14/17 03/14/17 03/14/17 07:00 15:00 23:00 07:00 15:00 23:00 Intake Total 600 ml Output Total 500 ml 1050 ml 1000 ml Balance -500 ml -450 ml -1000 ml Intake Oral 600 ml Output Urine Total 500 ml 1050 ml 1000 ml # Voids 1 # Bowel Movements 3 Result Diagram: 03/14/17 0559 03/14/17 0559 Imaging Last Impressions Chest X-Ray 03/12/17 0000 Signed Impressions: Service Date/Time: Sunday, March 12, 2017 15:50 - CONCLUSION: Tiny bilateral pleural effusions. Arturo Mariscal MD Brain MRI 03/05/17 0000 Signed Impressions: Service Date/Time: Sunday, March 05, 2017 11:28 - CONCLUSION: Moderate motion artifact. Negative for acute ischemic event. Atrophy with periventricular changes. Bennett Ibarra MD FACR Abdomen/Pelvis CT 03/04/17 5172 Signed Impressions: Service Date/Time: Saturday, March 04, 2017 18:28 - CONCLUSION: 1. Bilateral pleural effusions small to moderate in size. 2. No acute findings in the abdomen and pelvis. Corby Melendez MD Head CT 03/04/17 8535 Signed Impressions: Service Date/Time: Saturday, March 04, 2017 18:18 - CONCLUSION: No acute intracranial findings. Partial opacification of right sided mastoid air cells new. Corby Melendez MD Objective Remarks GENERAL: Elderly male appears in no acute distress CARDIOVASCULAR: Regular rate and rhythm. RESPIRATORY: Lung with bibasilar crackles and rhonchi. no wheezing. No accessory muscle use. GASTROINTESTINAL: Abdomen soft, non-tender, nondistended. Hepatic and splenic margins not palpable. MUSCULOSKELETAL: Extremities without clubbing, cyanosis, or edema. No obvious deformities. NEUROLOGICAL: Awake and alert. No obvious cranial nerve deficits. Motor grossly within normal limits. Five out of 5 muscle strength in the arms and legs. Normal speech. PSYCHIATRIC: Appropriate mood and affect; insight and judgment normal. GENITOURINARY: Chew, the urethral meatus site looks clean. Patient has no tenderness to palpation over the glans or shaft penis, but he does have tenderness on the left testicle is palpated, normal right testicle. Mild left- sided tenderness palpation with no overlying skin discoloration. A/P Problem List: (1) Catheter-associated urinary tract infection ICD Code: T83.511A - Infection and inflammatory reaction due to indwelling urethral catheter, initial encounter; N39.0 - Urinary tract infection, site not specified Status: Acute (2) Metabolic encephalopathy ICD Code: G93.41 - Metabolic encephalopathy Status: Acute Assessment and Plan Gross pyuria - improving. UC is negative. suspect steryl pyuria vs epididymitis (based on tender testicle). switching from rocephin to bactrim given more prostate/instrumentation etiology. Last UC of staph on 03/04 was resistant to fluoroquinolones. Bactrim DS. Suspected GI bleed given anemia and positive Hemoccult - Gastroenterology following, plans for colonoscopy on Monday03/14/16 Anemia - likely worsened w/ original hematuria noted upon admission - stable at this time - s/p total of 4 units since admission; Monitor H/H and transfuse if symptomatic or if HGB < 7 Possible Healthcare acquired PNA - improving doing well on RA - continue low dose oral lasix; echo showing intact EF Continue with antibiotics oral steroids - tapering. repeat CXR today given persistent abnl BS Bladder cancer - Oncology consulted, appreciate recommendations - Patient may need cystoscopy when medically stable - Discussed with urology, stable for discharge from urology standpoint with no acute surgical diagnostic or therapeutic intervention warranted; more appropriate to have patient's outpt urologist arrange a long-term plan - chew changed today Insulin-dependent diabetes mellitus Labile blood glucose Lantus to 30 units, continue SSI lower to MDSS Hypertension/hyperlipidemia Continue home medications History of prostate cancer PSA within normal limits SCDs given suspected GI bleed PT/OT DC plan: pending improvement work up in progress GIB plan for colonoscopy on 03/14/16 however patient with poor bowel prep GI will reevaluate patient and poss postpone procedure Suzanna Koehler MD Mar 14, 2017 08:37
[2017-03-14] MEDS ORDERED: predniSONE 10 MG TAB PO ONE (09:00)
[2017-03-14] MEDS: INSULIN DETEMIR 100 UNITS/ML VIAL SQ SCH ×2 (09:00→21:40)
[2017-03-14] MEDS: TAMSULOSIN HCL 0.4 MG CAP PO SCH (09:15)
[2017-03-14] MEDS: ATORVASTATIN 20 MG TAB PO SCH (09:16)
[2017-03-14] MEDS: POTASSIUM CHLORIDE 10 MEQ CAP PO SCH (09:16)
[2017-03-14] MEDS: SODIUM CHLORIDE 0.9% FLUSH 10 ML FLUSH IV FLUSH SCH ×2 (09:16→21:30)
[2017-03-14] MEDS: predniSONE 50 MG TAB PO SCH (09:16)
[2017-03-14] MEDS: LOSARTAN 25 MG TAB PO SCH (09:16)
[2017-03-14] MEDS: PANTOPRAZOLE SOD 40 MG DELAYED RELEASE TAB PO SCH (09:16)
[2017-03-14] MEDS: METOPROLOL TARTRATE 50 MG TAB PO SCH ×2 (09:16→21:30)
[2017-03-14] MEDS: FUROSEMIDE 20 MG/2 ML VIAL IV PUSH SCH ×2 (09:16→18:19)
[2017-03-14] MEDS: DORZOLAMIDE 2% OPTH SOLN 200 DROP/10 ML BTLO RIGHT EYE SCH ×2 (09:18→21:30)
[2017-03-14] MEDS ORDERED: ALTEPLASE RECOMBINANT 2 MG VIAL IV ONE (11:24)
--- NOTE | 2017-03-14 12:58 | RADRPT ---
EXAM DATE/TIME: 03/14/2017 12:06 [facility] COMPARISON: [id number] PLCMT, POWERPORT, W US, RIGHT, October 13, 2016, 8:21. INDICATIONS : History of bladder cancer. Bruising at port site and no blood return. MEDICAL HISTORY : 1. DM 2. HTN 3.bladder cancer 4. AMS 5. Glaucoma 6. prostate cancer SURGICAL HISTORY : 1. TURBT 2. Port placment 3. cholecystectomy 4. left AKA ENCOUNTER: Initial ACUITY: 3 days PAIN SCORE: 0/10 FLUORO TIME: 0.1 minutes IMAGE SERIES: 1 CONTRAST: 10 cc Omnipaque (iohexol) 350 ACCESS: Right infusaport PROCEDURE : 1. Access of [id number]. 2. Port patency injection. The risks, benefits and alternatives to the procedure were explained and verbal and written consent w as obtained. The patient was placed supine. The port was prepped in sterile fashion. Full sterile t echnique was used, including cap, mask, sterile gloves and gown, and a large sterile sheet. Hand hyg iene and 2% chlorhexidine prep was utilized per protocol for cutaneous antisepsis with appropriate dr y time for site. The previously placed port was accessed and positive contrast was injected for evaluation. Injection demonstrates the catheter to be located within the superior vena cava. Contrast was easily flushed a nd the catheter however could not be aspirated back into the port. The port was locked with 4 mg of TPA. CONCLUSION: 1. The port is in excellent position and flushes easily. 2. Contrast could not be withdrawn from the port though no definite fibrin sheath is evident around t he catheter. The catheter was locked with 4 mg of TPA. Jose J Ibarra MD on March 14, 2017 at 12:55 Board Certified Radiologist. This report was verified electronically.
--- NOTE | 2017-03-14 15:28 | HHI.GIFU ---
Subjective Remarks Pt resting in bed in NAD. Was to have EGD/colonoscopy today but did not take prep. When asked just says "I dunno." Per RN only drink 1 c of the GoLytely and prob will not drink more. report of black tarry stool but none today. Objective Vitals I&O Vital Signs Date Time Temp Pulse Resp B/P (MAP) Pulse Ox O2 Delivery O2 Flow Rate FiO2 03/14/17 08:20 97.6 65 20 156/76 (102) 93 03/14/17 04:00 97.7 71 20 164/72 (102) 97 03/14/17 00:00 97.3 76 21 139/65 (89) 92 03/13/17 20:00 97.5 78 19 119/58 (78) 94 03/13/17 16:33 97.4 72 18 154/70 (98) 93 I/O 03/13/17 03/13/17 03/13/17 03/14/17 03/14/17 03/14/17 07:00 15:00 23:00 07:00 15:00 23:00 Intake Total 600 ml Output Total 500 ml 1050 ml 1000 ml Balance -500 ml -450 ml -1000 ml Intake Oral 600 ml Output Urine Total 500 ml 1050 ml 1000 ml # Voids 1 # Bowel Movements 3 Laboratory Laboratory Tests Test 03/14/17 05:59 White Blood Count 15.6 Red Blood Count 3.18 Hemoglobin 9.0 Hematocrit 27.1 Mean Corpuscular Volume 85.2 Mean Corpuscular Hemoglobin 28.3 Mean Corpuscular Hemoglobin Concent 33.3 Red Cell Distribution Width 16.0 Platelet Count 285 Mean Platelet Volume 8.4 Neutrophils (%) (Auto) 91.5 Lymphocytes (%) (Auto) 4.6 Monocytes (%) (Auto) 3.8 Eosinophils (%) (Auto) 0.0 Basophils (%) (Auto) 0.1 Neutrophils # (Auto) 14.3 Lymphocytes # (Auto) 0.7 Monocytes # (Auto) 0.6 Eosinophils # (Auto) 0.0 Basophils # (Auto) 0.0 CBC Comment DIFF FINAL Differential Comment Blood Urea Nitrogen 43 Creatinine 1.24 Random Glucose 40 Total Protein 4.4 Calcium Level 7.3 Sodium Level 143 Potassium Level 3.5 Chloride Level 108 Carbon Dioxide Level 26.9 Anion Gap 8 Estimat Glomerular Filtration Rate 57 Protein Corrected Calcium 8.8 Date/Time Source Procedure Growth Status 03/04/17 17:04 Blood Peripheral Aerobic Blood Culture - Final NO GROWTH IN 5 DAYS Complete 03/04/17 17:04 Blood Peripheral Anaerobic Blood Culture - Final NO GROWTH IN 5 DAYS Complete 03/11/17 03:00 Stool Stool Stool Occult Blood (SANGEETA) - Final HEMOCCULT POSITIVE Complete 03/04/17 20:50 Nasal Washing Influenza Types A,B Antigen (SANGEETA) - Final NEGATIVE FOR FLU A AND B ANTIGEN.... Complete 03/11/17 09:42 Urine Clean Catch Urine Culture - Final NO GROWTH IN 48 HOURS. Complete 03/05/17 03:35 Abscess Leg Gram Stain - Final Complete 03/05/17 03:35 Wound Culture - Final Staphylococcus Aureus Complete Imaging Last Impressions Venous Access Device Injection 03/14/17 0000 Signed Impressions: Service Date/Time: Tuesday, March 14, 2017 12:06 - CONCLUSION: 1. The port is in excellent position and flushes easily. 2. Contrast could not be withdrawn from the port though no definite fibrin sheath is evident around the catheter. The catheter was locked with 4 mg of TPA. Jose J Ibarra MD Chest X-Ray 03/12/17 0000 Signed Impressions: Service Date/Time: Sunday, March 12, 2017 15:50 - CONCLUSION: Tiny bilateral pleural effusions. Arturo Mariscal MD Brain MRI 03/05/17 0000 Signed Impressions: Service Date/Time: Sunday, March 05, 2017 11:28 - CONCLUSION: Moderate motion artifact. Negative for acute ischemic event. Atrophy with periventricular changes. Bennett Ibarra MD FACR Abdomen/Pelvis CT [id number] Signed Impressions: Service Date/Time: Saturday, March 04, 2017 18:28 - CONCLUSION: 1. Bilateral pleural effusions small to moderate in size. 2. No acute findings in the abdomen and pelvis. Corby Melendez MD Head CT [id number] Signed Impressions: Service Date/Time: Saturday, March 04, 2017 18:18 - CONCLUSION: No acute intracranial findings. Partial opacification of right sided mastoid air cells new. Corby Melendez MD Physical Exam HEENT: Pupils round and reactive to light; normocephalic; atraumatic; CHEST: CTA CARDIAC: RRR ABDOMEN: Soft, nondistended, nontender; bowel sounds are soft EXTREMITIES: No clubbing, cyanosis, or edema. SKIN: Normal; no rash; pale DRIVER TRAINEE: No focal deficits; awake but not answering all questions appropriately Assessment and Plan Plan - Anemia and heme (+) stools. Could be multifactorial, anemia of chronic dz and or GI bleed report black tarry stool but not today. did not take prep for colonoscopy d/w RN CT of the abdomen/pelvis showed bilateral pleural effusions with no acute findings in the abdomen/pelvis - Hx of bladder cancer He is status post TURBT on September 01 and completed 4 cycles of neoadjuvant chemotherapy in January 2017. Oncology on the case - AMS- continues today, has been transient off and on and could be related to low hemoglobin - UTI, chronic [place], on abx Plan: - EGD and colonoscopy in am - Golytely if pt will drink it - 2 x enemas in am prior to procedure - Monitor hh - Patient discussed with Dr. Jordan and this note is written on his behalf. Gerri Nolan Mar 14, 2017 15:28
[2017-03-14 17:18] VITALS: BP 135/66; PULSE 61; RESP 20; TEMP 97.3; O2SAT 92
[2017-03-14 20:00] VITALS: BP 129/58; PULSE 67; RESP 18; TEMP 97.2; O2SAT 96
[2017-03-14] MEDS: LATANOPROST 0.005% OPHT SOLN 2.5 ML BTL RIGHT EYE SCH (21:30)
[2017-03-15] VITALS (7 sets, daily range): BP systolic 121–153; BP diastolic 58–91; PULSE 60–65; RESP 18–22; TEMP 97.2–97.5; O2SAT 92–97
[2017-03-15] MEDS: SULFAMETHOXAZOLE-TRIMETHOPRIM DS 800-160 MG TAB PO SCH ×2 (04:32→16:00)
[2017-03-15] MEDS ORDERED: POVIDONE IODINE 5% (ANTISEPSIS KIT) 4 APPLICATIONS EACH NARE PRN ×3 (05:00→10:00)
[2017-03-15] MEDS ORDERED: CHLORHEXIDINE GLUCONATE 2 % 1 PACK (2 CLOTHS) TOPICAL PRN ×3 (05:00→10:00)
[2017-03-15] MEDS ORDERED: LACTATED RINGER'S 1000 ML IV PRN ×3 (05:00→10:00)
[2017-03-15 06:27] LABS: HEMATOCRIT 28.3 % (39.0-51.0); HEMOGLOBIN 9.7 GM/DL (13.0-17.0); LYMPH % 6.8 % (9.0-44.0); LYMPHOCYTE # 0.9 TH/MM3 (1.0-4.8); MEAN CELL VOLUME 85.8 FL (80.0-100.0); MEAN CORPUSCULAR HEMOGLOBIN 29.4 PG (27.0-34.0); MEAN CORPUSCULAR HGB CONC 34.3 % (32.0-36.0); MEAN PLATELET VOLUME 9.1 FL (7.0-11.0); MONO % 7.7 % (0.0-8.0); MONOCYTE # 1.1 TH/MM3 (0-0.9); NEUT % 85.5 % (16.0-70.0); PLATELET COUNT 325 TH/MM3 (150-450)
[2017-03-15 06:53] LABS: BICARBONATE 24.8 MEQ/L (21.0-32.0); CALCIUM 7.2 MG/DL (8.5-10.1); CREATININE 1.26 MG/DL (0.60-1.30)
[2017-03-15] MEDS ORDERED: SOD PHOSPHATE/SOD BIPHOSPHATE (ADULT) ENEMA 133ML PR ONE ×2 (07:00→08:00)
[2017-03-15 07:17] LABS: CALCIUM-PROTEIN CORRECTED 8.7 MG/DL (8.5-10.1); TOTAL PROTEIN 4.4 GM/DL (6.4-8.2)
[2017-03-15] MEDS: INSULIN ASPART SUPPLEMENTAL SCALE SQ SCH ×4 (08:00→21:44)
[2017-03-15] MEDS: predniSONE 50 MG TAB PO SCH (09:00)
[2017-03-15] MEDS ORDERED: predniSONE 20 MG TAB PO ONE (09:00)
[2017-03-15] MEDS: INSULIN DETEMIR 100 UNITS/ML VIAL SQ SCH ×2 (09:00→21:00)
[2017-03-15] MEDS: DORZOLAMIDE 2% OPTH SOLN 200 DROP/10 ML BTLO RIGHT EYE SCH ×2 (09:00→21:00)
[2017-03-15] MEDS: SODIUM CHLORIDE 0.9% FLUSH 10 ML FLUSH IV FLUSH SCH ×2 (09:00→21:00)
[2017-03-15] MEDS ORDERED: METOPROLOL TARTRATE 25 MG TAB PO PRN ×2 (09:30→10:00)
[2017-03-15] MEDS: RESP: ALBUTEROL 2.5 MG/IPRATROPIUM 0.5 MG NEB (PRN) NEB (09:30)
[2017-03-15] MEDS ORDERED: SODIUM CHLORID 0.9% 500 ML IV PRN ×2 (09:30→10:00)
[2017-03-15] MEDS ORDERED: INSULIN HUMAN REGULAR 1,000 UNITS/10 ML VIAL SQ PRN (10:00)
--- NOTE | 2017-03-15 10:33 | HHI.PR ---
Subjective Remarks Patient was seen after EGD. He is agitated and appears confused. Medically pain at this time. No nausea or vomiting Objective Vitals Vital Signs Date Time Temp Pulse Resp B/P (MAP) Pulse Ox O2 Delivery O2 Flow Rate FiO2 03/15/17 08:45 96.5 62 18 168/73 (104) 96 03/15/17 08:19 97.2 61 20 125/60 (81) 92 03/15/17 04:00 97.2 61 21 153/65 (94) 97 03/15/17 02:42 95 03/15/17 00:00 97.2 62 22 121/82 (95) 96 03/14/17 20:00 97.2 67 18 129/58 (81) 96 03/14/17 17:18 97.3 61 20 135/66 (89) 92 I/O 03/14/17 03/14/17 03/14/17 03/15/17 03/15/17 03/15/17 06:59 14:59 22:59 06:59 14:59 22:59 Intake Total 262.5 ml 300 ml Output Total 2000 ml 250 ml Balance -1737.5 ml -250 ml 300 ml Intake Oral 0 ml IV Total 262.5 ml Other 300 ml Output Urine Total 2000 ml 250 ml # Bowel Movements 4 1 1 Result Diagram: 03/15/17 0601 03/15/17 0601 Imaging Last Impressions Venous Access Device Injection 03/14/17 0000 Signed Impressions: Service Date/Time: Tuesday, March 14, 2017 12:06 - CONCLUSION: 1. The port is in excellent position and flushes easily. 2. Contrast could not be withdrawn from the port though no definite fibrin sheath is evident around the catheter. The catheter was locked with 4 mg of TPA. Jose J Ibarra MD Chest X-Ray 03/12/17 0000 Signed Impressions: Service Date/Time: Sunday, March 12, 2017 15:50 - CONCLUSION: Tiny bilateral pleural effusions. Arturo Mariscal MD Brain MRI 03/05/17 0000 Signed Impressions: Service Date/Time: Sunday, March 05, 2017 11:28 - CONCLUSION: Moderate motion artifact. Negative for acute ischemic event. Atrophy with periventricular changes. Bennett Ibarra MD FACR Abdomen/Pelvis CT 03/04/17 1742 Signed Impressions: Service Date/Time: Saturday, March 04, 2017 18:28 - CONCLUSION: 1. Bilateral pleural effusions small to moderate in size. 2. No acute findings in the abdomen and pelvis. Corby Melendez MD Head CT 03/04/17 1732 Signed Impressions: Service Date/Time: Saturday, March 04, 2017 18:18 - CONCLUSION: No acute intracranial findings. Partial opacification of right sided mastoid air cells new. Corby Melendez MD Objective Remarks GENERAL: Elderly male appears in no acute distress CARDIOVASCULAR: Regular rate and rhythm. RESPIRATORY: Lung with bibasilar crackles and rhonchi. no wheezing. No accessory muscle use. GASTROINTESTINAL: Abdomen soft, non-tender, nondistended. Hepatic and splenic margins not palpable. MUSCULOSKELETAL: Extremities without clubbing, cyanosis, or edema. No obvious deformities. NEUROLOGICAL: Awake and alert. No obvious cranial nerve deficits. Motor grossly within normal limits. Five out of 5 muscle strength in the arms and legs. Normal speech. PSYCHIATRIC: Appropriate mood and affect; insight and judgment normal. GENITOURINARY: Chew, the urethral meatus site looks clean. Patient has no tenderness to palpation over the glans or shaft penis, but he does have tenderness on the left testicle is palpated, normal right testicle. Mild left- sided tenderness palpation with no overlying skin discoloration. A/P Problem List: (1) Catheter-associated urinary tract infection ICD Code: T83.511A - Infection and inflammatory reaction due to indwelling urethral catheter, initial encounter; N39.0 - Urinary tract infection, site not specified Status: Acute (2) Metabolic encephalopathy ICD Code: G93.41 - Metabolic encephalopathy Status: Acute Assessment and Plan Gross pyuria - improving. UC is negative. suspect steryl pyuria vs epididymitis (based on tender testicle). switching from rocephin to bactrim given more prostate/instrumentation etiology. Last UC of staph on 03/04 was resistant to fluoroquinolones. Bactrim DS. Suspected GI bleed given anemia and positive Hemoccult - Gastroenterology following, plans for colonoscopy on Monday03/14/16 Anemia - likely worsened w/ original hematuria noted upon admission - stable at this time - s/p total of 4 units since admission; Monitor H/H and transfuse if symptomatic or if HGB < 7 Possible Healthcare acquired PNA - improving doing well on RA - continue low dose oral lasix; echo showing intact EF Continue with antibiotics oral steroids - tapering. repeat CXR today given persistent abnl BS Bladder cancer - Oncology consulted, appreciate recommendations - Patient may need cystoscopy when medically stable - Discussed with urology, stable for discharge from urology standpoint with no acute surgical diagnostic or therapeutic intervention warranted; more appropriate to have patient's outpt urologist arrange a long-term plan - chew changed today Insulin-dependent diabetes mellitus Labile blood glucose Lantus to 30 units, continue SSI lower to MDSS Hypertension/hyperlipidemia Continue home medications History of prostate cancer PSA within normal limits Agitation: soft restraints/ativan /haldol prn , will consult psych SCDs given suspected GI bleed PT/OT DC plan: pending improvement, work up in progress GIB plan for colonoscopy 03/16/16. Had EGD Suzanna Koehler MD Mar 15, 2017 10:33
[2017-03-15] MEDS ORDERED: DO NOT ADM ANY ANTICOAGULANT DRUGS PRN (11:00)
[2017-03-15] MEDS ORDERED: LIDOCAINE HCL 1% PF 5 ML SYRINGE OTHER ONE (12:00)
[2017-03-15] MEDS ORDERED: PROPOFOL 200 MG/20 ML AMP IV ONE (12:00)
[2017-03-15] MEDS ORDERED: GLYCOPYRROLATE 1 MG/5 ML SYRINGE IV PUSH ONE (12:00)
[2017-03-15] MEDS ORDERED: PHENYLEPH/NS 1000 MCG/10 ML SYR IV ONE (12:00)
[2017-03-15] MEDS: DEXTROSE 50% IN WATER 50 ML VIAL(D50) IV PUSH PRN ×2 (12:52→18:00)
[2017-03-15] MEDS: LORazepam 0.5 MG TAB PO PRN (13:23)
[2017-03-15] MEDS: TAMSULOSIN HCL 0.4 MG CAP PO SCH (13:33)
[2017-03-15] MEDS: POTASSIUM CHLORIDE 10 MEQ CAP PO SCH (13:34)
[2017-03-15] MEDS: LOSARTAN 25 MG TAB PO SCH (13:34)
[2017-03-15] MEDS: PANTOPRAZOLE SOD 40 MG DELAYED RELEASE TAB PO SCH (13:35)
[2017-03-15] MEDS: ATORVASTATIN 20 MG TAB PO SCH (13:35)
[2017-03-15] MEDS: METOPROLOL TARTRATE 50 MG TAB PO SCH ×2 (13:35→23:39)
[2017-03-15] MEDS: FUROSEMIDE 20 MG/2 ML VIAL IV PUSH SCH ×2 (13:47→18:00)
[2017-03-15] MEDS ORDERED: HALOPERIDOL LACTATE 5 MG/ML AMP IM PRN (15:30)
[2017-03-15] MEDS ORDERED: POTASSIUM BICARBONATE 25 MEQ EFFERVESCENT TAB PO ONE (15:45)
[2017-03-15] MEDS ORDERED: PEG (High)/E-LYTE SOLN 4000 ML BTL PO SCH (16:00)
[2017-03-15] MEDS: VANCOMYCIN INJ 1,250 MG in SODIUM CHLOR 0.9% 250 ML INJ 250 ML IV SCH (18:00)
[2017-03-15] MEDS: LATANOPROST 0.005% OPHT SOLN 2.5 ML BTL RIGHT EYE SCH (21:00)
[2017-03-15] MEDS: FAMOTIDINE 20 MG TAB PO SCH (23:39)
[2017-03-16 01:08] VITALS: BP 116/96; PULSE 82; RESP 18; TEMP 99; O2SAT 96
[2017-03-16 05:22] VITALS: BP 126/60; PULSE 79; RESP 18; TEMP 98; O2SAT 95
[2017-03-16] MEDS: SULFAMETHOXAZOLE-TRIMETHOPRIM DS 800-160 MG TAB PO SCH ×2 (06:30→17:50)
[2017-03-16 08:00] VITALS: BP 124/88; PULSE 71; RESP 18; TEMP 97.5; O2SAT 99
[2017-03-16] MEDS: INSULIN ASPART SUPPLEMENTAL SCALE SQ SCH ×4 (08:00→21:00)
[2017-03-16] MEDS: DEXTROSE 50% IN WATER 50 ML VIAL(D50) IV PUSH PRN (08:38)
[2017-03-16] MEDS: PANTOPRAZOLE SOD 40 MG DELAYED RELEASE TAB PO SCH (08:43)
[2017-03-16] MEDS: POTASSIUM CHLORIDE 10 MEQ CAP PO SCH (08:45)
[2017-03-16] MEDS: ATORVASTATIN 20 MG TAB PO SCH (08:46)
[2017-03-16] MEDS: TAMSULOSIN HCL 0.4 MG CAP PO SCH (08:46)
[2017-03-16] MEDS: predniSONE 50 MG TAB PO SCH (08:46)
[2017-03-16] MEDS: SODIUM CHLORIDE 0.9% FLUSH 10 ML FLUSH IV FLUSH SCH ×2 (08:47→20:21)
[2017-03-16] MEDS: INSULIN DETEMIR 100 UNITS/ML VIAL SQ SCH ×2 (08:47→23:52)
[2017-03-16] MEDS: FAMOTIDINE 20 MG TAB PO SCH ×2 (08:47→20:17)
[2017-03-16] MEDS: DORZOLAMIDE 2% OPTH SOLN 200 DROP/10 ML BTLO RIGHT EYE SCH ×2 (08:47→20:20)
[2017-03-16] MEDS ORDERED: predniSONE 10 MG TAB PO ONE (09:00)
[2017-03-16] MEDS: LOSARTAN 25 MG TAB PO SCH (09:01)
[2017-03-16] MEDS: METOPROLOL TARTRATE 50 MG TAB PO SCH ×2 (09:01→20:17)
[2017-03-16] MEDS: FUROSEMIDE 20 MG/2 ML VIAL IV PUSH SCH ×2 (09:02→17:50)
--- NOTE | 2017-03-16 09:43 | HHI.PR ---
Subjective Remarks een after he came back from procedure. will advance diet/ No fever or chills. In bed. in restraints less agitated. No n/v/d/c. No bleeding. Objective Vitals Vital Signs Date Time Temp Pulse Resp B/P (MAP) Pulse Ox O2 Delivery O2 Flow Rate FiO2 03/16/17 05:22 98.0 79 18 126/60 (82) 95 03/16/17 01:08 99.0 82 18 116/96 (103) 96 03/15/17 20:55 97.5 65 18 125/91 (102) 95 03/15/17 15:56 97.3 60 20 130/58 (82) 95 03/15/17 11:31 97.5 65 20 141/62 (88) 94 03/15/17 10:54 63 19 119/55 (76) 98 Nasal Cannula 2 03/15/17 10:45 62 19 125/58 (80) 100 Nasal Cannula 2 03/15/17 10:37 98.0 63 19 134/64 (87) 95 Nasal Cannula 2 03/15/17 10:15 82 18 85/49 (61) 95 I/O 03/15/17 03/15/17 03/15/17 03/16/17 03/16/17 03/16/17 07:00 15:00 23:00 07:00 15:00 23:00 Intake Total 300 ml Output Total 250 ml 600 ml 600 ml 1600 ml Balance -250 ml -300 ml -600 ml -1600 ml Intake Oral 0 ml Other 300 ml Output Urine Total 250 ml 600 ml 600 ml 1600 ml # Bowel Movements 1 2 3 1 Result Diagram: 03/15/17 0601 03/15/17 0601 Imaging Last Impressions Chest X-Ray 03/16/17 0000 Signed Impressions: Service Date/Time: March 12:50 - CONCLUSION: 1. Minimal streakiness within the right medial lung base consistent with atelectasis and/ or minimal infiltrate. 2. Cardiomegaly. Mejia Davidson MD Venous Access Device Injection 03/14/17 0000 Signed Impressions: Service Date/Time: Tuesday, March 14, 2017 12:06 - CONCLUSION: 1. The port is in excellent position and flushes easily. 2. Contrast could not be withdrawn from the port though no definite fibrin sheath is evident around the catheter. The catheter was locked with 4 mg of TPA. Jose J Ibarra MD Brain MRI 03/05/17 0000 Signed Impressions: Service Date/Time: Sunday, March 05, 2017 11:28 - CONCLUSION: Moderate motion artifact. Negative for acute ischemic event. Atrophy with periventricular changes. Bennett Ibarra MD FACR Abdomen/Pelvis CT 03/04/17 1742 Signed Impressions: Service Date/Time: Saturday, March 04, 2017 18:28 - CONCLUSION: 1. Bilateral pleural effusions small to moderate in size. 2. No acute findings in the abdomen and pelvis. Corby Melendez MD Head CT 03/04/17 1732 Signed Impressions: Service Date/Time: Saturday, March 04, 2017 18:18 - CONCLUSION: No acute intracranial findings. Partial opacification of right sided mastoid air cells new. Corby Melendez MD Objective Remarks GENERAL: Elderly male appears in no acute distress CARDIOVASCULAR: Regular rate and rhythm. RESPIRATORY: Lung with bibasilar crackles and rhonchi. no wheezing. No accessory muscle use. GASTROINTESTINAL: Abdomen soft, non-tender, nondistended. Hepatic and splenic margins not palpable. MUSCULOSKELETAL: Extremities without clubbing, cyanosis, or edema. No obvious deformities. NEUROLOGICAL: Awake and alert. No obvious cranial nerve deficits. Motor grossly within normal limits. Five out of 5 muscle strength in the arms and legs. Normal speech. PSYCHIATRIC: Appropriate mood and affect; insight and judgment normal. GENITOURINARY: Chew, the urethral meatus site looks clean. Patient has no tenderness to palpation over the glans or shaft penis, but he does have tenderness on the left testicle is palpated, normal right testicle. Mild left- sided tenderness palpation with no overlying skin discoloration. A/P Problem List: (1) Catheter-associated urinary tract infection ICD Code: T83.511A - Infection and inflammatory reaction due to indwelling urethral catheter, initial encounter; N39.0 - Urinary tract infection, site not specified Status: Acute (2) Metabolic encephalopathy ICD Code: G93.41 - Metabolic encephalopathy Status: Acute Assessment and Plan Gross pyuria - improving. UC is negative. suspect steryl pyuria vs epididymitis (based on tender testicle). switching from rocephin to bactrim given more prostate/instrumentation etiology. Last UC of staph on 03/04 was resistant to fluoroquinolones. Bactrim DS. Suspected GI bleed given anemia and positive Hemoccult - Gastroenterology following, plans for colonoscopy on Monday03/14/16 Anemia - likely worsened w/ original hematuria noted upon admission - stable at this time - s/p total of 4 units since admission; Monitor H/H and transfuse if symptomatic or if HGB < 7 Possible Healthcare acquired PNA - improving doing well on RA - continue low dose oral lasix; echo showing intact EF Continue with antibiotics oral steroids - tapering. repeat CXR today given persistent abnl BS Bladder cancer - Oncology consulted, appreciate recommendations - Patient may need cystoscopy when medically stable - Discussed with urology, stable for discharge from urology standpoint with no acute surgical diagnostic or therapeutic intervention warranted; more appropriate to have patient's outpt urologist arrange a long-term plan - chew changed today Insulin-dependent diabetes mellitus Labile blood glucose Lantus to 30 units, continue SSI lower to MDSS Hypertension/hyperlipidemia Continue home medications History of prostate cancer PSA within normal limits Agitation: soft restraints/ativan /haldol prn , will consult psych SCDs given suspected GI bleed PT/OT DC plan: pending improvement, and cleared by GI GIB s/p colonoscopy 03/16/16. Had EGD Suzanna Koehler MD Mar 16, 2017 09:43
[2017-03-16] MEDS ORDERED: DEXTROSE 50% IN WATER 50 ML VIAL(D50) IV PUSH PRN (09:45)
[2017-03-16] MEDS ORDERED: GLUCAGON 1 MG/ML VIAL OTHER PRN (09:45)
[2017-03-16 12:00] VITALS: BP 127/64; PULSE 63; RESP 18; TEMP 96.4; O2SAT 99
[2017-03-16] MEDS ORDERED: EPINEPHrine HCL (1:1000) 1 MG/ML VIAL IV ONE (12:00)
[2017-03-16] MEDS ORDERED: PROPOFOL 200 MG/20 ML AMP IV ONE (12:00)
--- NOTE | 2017-03-16 14:31 | RADRPT ---
EXAM DATE/TIME: 03/16/2017 12:50 [facility] COMPARISON: CHEST SINGLE AP, March 06, 2017, 18:51. INDICATIONS : Cough. MEDICAL HISTORY : Stroke. Carcinoma, bladder. Hypertension. diabetes SURGICAL HISTORY : Cholecystectomy. thyroid surgery ENCOUNTER: Subsequent ACUITY: 1 day PAIN SCORE: Non-responsive. LOCATION: Bilateral chest FINDINGS: A right internal jugular [id number] has its tip in the superior vena cava. There is no pneumothora x. Minimal streakiness is noted within the right medial lung base consistent with atelectasis and/or minimal infiltrate. Left lung is clear. The heart is enlarged. Degenerative changes of the thoracic s pine are noted. CONCLUSION: 1. Minimal streakiness within the right medial lung base consistent with atelectasis and/or minimal i nfiltrate. 2. Cardiomegaly. Mejia Davidson MD on March 16, 2017 at 14:23 Board Certified Radiologist. This report was verified electronically.
[2017-03-16 16:00] VITALS: BP 113/80; PULSE 70; RESP 18; TEMP 97.5; O2SAT 94
[2017-03-16] MEDS: LORazepam 0.5 MG TAB PO PRN (20:17)
[2017-03-16 20:30] VITALS: BP 136/63; PULSE 70; RESP 19; TEMP 99; O2SAT 98
[2017-03-16] MEDS: LATANOPROST 0.005% OPHT SOLN 2.5 ML BTL RIGHT EYE SCH (21:00)
[2017-03-17] VITALS (9 sets, daily range): BP systolic 108–152; BP diastolic 58–80; PULSE 67–91; RESP 16–20; TEMP 97.3–98.6; O2SAT 83–100
[2017-03-17] MEDS: LORazepam 0.5 MG TAB PO PRN (04:38)
[2017-03-17] MEDS: SULFAMETHOXAZOLE-TRIMETHOPRIM DS 800-160 MG TAB PO SCH ×2 (04:38→16:00)
[2017-03-17] MEDS: VANCOMYCIN INJ 1,250 MG in SODIUM CHLOR 0.9% 250 ML INJ 250 ML IV SCH (05:41)
[2017-03-17] MEDS ORDERED: PHARMACY ORDERED LAB ONE (05:45)
[2017-03-17 06:37] LABS: CREATININE 1.5 MG/DL (0.60-1.30)
[2017-03-17] MEDS: INSULIN ASPART SUPPLEMENTAL SCALE SQ SCH ×4 (08:00→21:00)
--- NOTE | 2017-03-17 08:54 | HHI.PR ---
Subjective Remarks Paged by the nurse. Laya was also called. Patient noted more confused and he is hallucinating. He did received ativan earlier in the morning because he was noted agitated. Patient is with low O2 saturation uin 70s. Also his BS was 55 received one amp of dextrose and repeat BS of 181. BP stable. Attempted ABG at bedside unsuccessful, and ABG is from venous side. Patient is moving arms and legs doesn't folow commands. appears in distress , O2 sat on NRM is 95%. Waking up after dextrose administration. Temp is normal Objective Vitals Vital Signs Date Time Temp Pulse Resp B/P (MAP) Pulse Ox O2 Delivery O2 Flow Rate FiO2 03/17/17 05:00 98.4 72 19 152/60 (90) 94 03/17/17 00:30 98.6 67 19 121/69 (86) 96 03/17/17 00:00 96 Nasal Cannula 2.00 03/16/17 22:28 2.00 03/16/17 20:30 99.0 70 19 136/63 (87) 98 03/16/17 16:00 97.5 70 18 113/80 (91) 94 03/16/17 12:00 96.4 63 18 127/64 (85) 99 03/16/17 11:57 98.5 58 18 128/64 (85) 100 I/O 03/16/17 03/16/17 03/16/17 03/17/17 03/17/17 03/17/17 07:00 15:00 23:00 07:00 15:00 23:00 Intake Total 120 ml Output Total 1600 ml 800 ml 900 ml Balance -1600 ml -800 ml -780 ml Intake Oral 120 ml Output Urine Total 1600 ml 800 ml 900 ml # Bowel Movements 1 Result Diagram: 03/15/17 0601 03/17/17 0550 Objective Remarks GENERAL: Elderly male appears in bed appears in acute distress 2/2 sob, agitation CARDIOVASCULAR: Regular rate and rhythm. RESPIRATORY: Lung with bibasilar crackles and rhonchi. no wheezing. No accessory muscle use. GASTROINTESTINAL: Abdomen soft, non-tender, nondistended. Hepatic and splenic margins not palpable. MUSCULOSKELETAL: Extremities without clubbing, cyanosis, or edema. No obvious deformities. NEUROLOGICAL: Awake and alert. No obvious cranial nerve deficits. Motor grossly within normal limits. Five out of 5 muscle strength in the arms and legs. Normal speech. PSYCHIATRIC: Appropriate mood and affect; insight and judgment normal. GENITOURINARY: Chew, the urethral meatus site looks clean. Patient has no tenderness to palpation over the glans or shaft penis, but he does have tenderness on the left testicle is palpated, normal right testicle. Mild left- sided tenderness palpation with no overlying skin discoloration. PSYCH: Hallucinating, in restraints. A/P Problem List: (1) Catheter-associated urinary tract infection ICD Code: T83.511A - Infection and inflammatory reaction due to indwelling urethral catheter, initial encounter; N39.0 - Urinary tract infection, site not specified Status: Acute (2) Metabolic encephalopathy ICD Code: G93.41 - Metabolic encephalopathy Status: Acute Assessment and Plan Acute encephalopathy: likely 2/2 hypoglycemia, hypoxia, received meds ativan. DC ativan. EEG , CT head reciewd and normal. Hypoglycemia brittle diabetic. Patient with BS of 55 confused. Received 1 amp dextrose repeat BS of 181. Monitor Bs started on D5 IV as patient is not eating , monitor BS . Cange diet to regular diet Hypoxia while on room air. Placed on NRM O2 sat at 95%. Otherwise VS stable HR, BP, RR. Stat ABG obtained venous because difficult patient. ABG obtained later, will taper down O2. CXR reviewed and no significant change, no infiltrate, shows atelectasis. IS Hallucinations/agitattions. dementia : DC ativan cont haldol add seroquel 25 mg bid. Consult [facility] discussed with Dr Cuevas patient might benefit for psych admission Gross pyuria - improving. UC is negative. suspect steryl pyuria vs epididymitis (based on tender testicle). switching from rocephin to bactrim given more prostate/instrumentation etiology. Last UC of [facility] on 03/04 was resistant to fluoroquinolones. Bactrim DS. Suspected GI bleed given anemia and positive Hemoccult - Gastroenterology following, s/o EGD and colonoscopy Anemia - likely worsened w/ original hematuria noted upon admission - stable at this time - s/p total of 4 units since admission; Monitor H/H and transfuse if symptomatic or if HGB < 7 Possible Healthcare acquired PNA - improving doing well on RA - continue low dose oral lasix; echo showing intact EF Continue with antibiotics oral steroids - tapering. repeat CXR today given persistent abnl BS Bladder cancer - Oncology consulted, appreciate recommendations - Patient may need cystoscopy when medically stable - Discussed with urology, stable for discharge from urology standpoint with no acute surgical diagnostic or therapeutic intervention warranted; more appropriate to have patient's outpt urologist arrange a long-term plan - chew changed today Insulin-dependent diabetes mellitus Labile blood glucose Lantus to 30 units, continue SSI lower to MDSS Hypertension/hyperlipidemia Continue home medications History of prostate cancer PSA within normal limits Agitation: soft restraints/ativan /haldol prn , will consult psych SCDs given suspected GI bleed PT/OT DC plan: pending improvement, and cleared by GI GIB s/p colonoscopy 03/16/16. Had EGD 03/17/17 with acute encephalopathy, hallucinations. Also psych consulted , might be DC to psych when improves. Suzanna Koehler MD Mar 17, 2017 08:54
[2017-03-17] MEDS: INSULIN DETEMIR 100 UNITS/ML VIAL SQ SCH ×2 (09:00→20:49)
[2017-03-17] MEDS: predniSONE 50 MG TAB PO SCH (09:00)
[2017-03-17] MEDS: ATORVASTATIN 20 MG TAB PO SCH (09:00)
[2017-03-17] MEDS: DORZOLAMIDE 2% OPTH SOLN 200 DROP/10 ML BTLO RIGHT EYE SCH ×2 (09:00→20:49)
[2017-03-17] MEDS: LOSARTAN 25 MG TAB PO SCH (09:00)
[2017-03-17] MEDS: FAMOTIDINE 20 MG TAB PO SCH (09:00)
[2017-03-17] MEDS: POTASSIUM CHLORIDE 10 MEQ CAP PO SCH (09:00)
[2017-03-17] MEDS: SODIUM CHLORIDE 0.9% FLUSH 10 ML FLUSH IV FLUSH SCH ×2 (09:00→20:48)
[2017-03-17] MEDS: PANTOPRAZOLE SOD 40 MG DELAYED RELEASE TAB PO SCH (09:00)
[2017-03-17] MEDS: TAMSULOSIN HCL 0.4 MG CAP PO SCH (09:00)
[2017-03-17] MEDS: METOPROLOL TARTRATE 50 MG TAB PO SCH ×2 (09:00→20:48)
[2017-03-17] MEDS: RESP: ALBUTEROL 2.5 MG/IPRATROPIUM 0.5 MG NEB (PRN) NEB (09:13)
[2017-03-17] MEDS: DEXTROSE 50% IN WATER 50 ML VIAL(D50) IV PUSH PRN (09:20)
[2017-03-17] MEDS: FUROSEMIDE 20 MG/2 ML VIAL IV PUSH SCH ×2 (09:20→17:58)
[2017-03-17] MEDS ORDERED: HALOPERIDOL LACTATE 5 MG/ML AMP IV PUSH ONE (10:15)
[2017-03-17 10:23] LABS: AUTOMATED NEUTROPHIL # 11.7 TH/MM3 (1.8-7.7); BASOPHIL % 0.1 % (0.0-2.0); HEMATOCRIT 26.8 % (39.0-51.0); HEMOGLOBIN 8.8 GM/DL (13.0-17.0); LYMPH % 10.3 % (9.0-44.0); LYMPHOCYTE # 1.5 TH/MM3 (1.0-4.8); MEAN CORPUSCULAR HEMOGLOBIN 28.6 PG (27.0-34.0); MEAN CORPUSCULAR HGB CONC 32.9 % (32.0-36.0); MEAN PLATELET VOLUME 8.9 FL (7.0-11.0); MONO % 8.2 % (0.0-8.0); MONOCYTE # 1.2 TH/MM3 (0-0.9); NEUT % 81.4 % (16.0-70.0); PLATELET COUNT 297 TH/MM3 (150-450); RED BLOOD COUNT 3.08 MIL/MM3 (4.50-5.90); RED CELL DISTRIBUTION WIDTH 16.8 % (11.6-17.2); WHITE BLOOD COUNT 14.4 TH/MM3 (4.0-11.0)
[2017-03-17] MEDS: DEXTROSE 5%-LACTATED RING INJ 1,000 ML IV SCH ×2 (10:30→22:25)
[2017-03-17] MEDS ORDERED: DEXT 5%-NACL 0.9% 1000 ML INJ 1,000 ML IV ONE (10:30)
--- NOTE | 2017-03-17 10:32 | RADRPT ---
EXAM DATE/TIME: 03/17/2017 09:43 [place] COMPARISON: CHEST SINGLE AP, March 16, 2017, 12:50. INDICATIONS : Shortness of breaeth, halicat. MEDICAL HISTORY : Diabetes mellitus type II. Stroke. Carcinoma, bladder. Hypertension SURGICAL HISTORY : Cholecystectomy. ENCOUNTER: Subsequent ACUITY: 1 week PAIN SCORE: 0/10 LOCATION: Bilateral chest FINDINGS: The cardiac silhouette is enlarged in transverse diameter. There is subsegmental atelectasis in the m edial right base. The left lung is free of acute parenchymal opacity. There has been no significant c hange when compared to the prior exam. CONCLUSION: 1. Subsegmental atelectasis right base. There has been no significant change when compared to the vibha or exam. Gilberto Wisdom MD on March 17, 2017 at 10:24 Board Certified Radiologist. This report was verified electronically.
[2017-03-17 10:47] LABS: ALBUMIN 1.8 GM/DL (3.4-5.0); BICARBONATE 25.8 MEQ/L (21.0-32.0); CALCIUM 7.2 MG/DL (8.5-10.1); CALCIUM-PROTEIN CORRECTED 8.8 MG/DL (8.5-10.1); CREATININE 1.5 MG/DL (0.60-1.30); TOTAL BILIRUBIN ADULT 0.4 MG/DL (0.2-1.0); TOTAL PROTEIN 4.3 GM/DL (6.4-8.2)
[2017-03-17] MEDS: QUEtiapine FUMARATE 25 MG TAB PO SCH (12:00)
--- NOTE | 2017-03-17 13:10 | PD.PSY.CON ---
Provisional Diagnosis Admission Date Mar 04, 2017 at 19:37 [place] I. Delirium due to multiple factors History of Present Illness Service Psychiatry Consult Requested By Primary attending Reason for Consult Agitation and hyperactivity Primary Care Physician Unknown HPI The patient is a 76-year-old man, , retired also [employer], domiciled alone, past psychiatric history psychosis, he was hospitalized here in [place] under the care of Dr. Tolentino in January 2016, past medical history of bladder cancer, hypertension, insulin-dependent diabetes melitis, who was admitted to medicine due to Gross pyuria. Suspected GI bleed given anemia and positive Hemoccult. Anemia. Consulted to psychiatry due to increased agitation in the medical floor. The patient was evaluated by me. He is restrained in 4 points, very agitated at this moment, incoherent, very confused, unable to provide any significant information for the psychiatric assessment at this moment. I have spoken with Dr. Koehler and she says that the patient has been trying to get out of his bed, very hyperactive, not sleeping, difficult to control with benzodiazepines. Review of Systems ROS Limitations: Unresponsive, Uncooperative Past Family Social History Coded Allergies: benazepril (Verified Adverse Reaction, Intermediate, Cough, 03/08/17) captopril (Verified Adverse Reaction, Intermediate, Cough, 03/08/17) enalaprilat (Verified Adverse Reaction, Intermediate, Cough, 03/08/17) fosinopril (Verified Adverse Reaction, Intermediate, Cough, 03/08/17) lisinopril (Verified Adverse Reaction, Intermediate, Cough, 03/08/17) quinapril (Verified Adverse Reaction, Intermediate, Cough, 03/08/17) Active Scripts Potassium Chloride Microencaps (Klor-Con M20) 20 Meq Tab, 20 MEQ PO DAILY for Electrolyte Replacement, #30 TAB 0 Refills Prov:Messi Cohn MD 03/10/17 Furosemide (Lasix) 40 Mg Tab, 40 MG PO DAILY for fluid balance, #30 TAB 0 Refills Prov:Messi Cohn MD 03/10/17 Prednisone (21) 10 mg tab Dose Pack (Prednisone (21) 10 mg tab Dose Pack) 10 Mg Pack, 10 MG PO DIRECTED for Inflammation, #1 DSPK 0 Refills Prov:Messi Cohn MD 03/10/17 Doxycycline Hyclate (Doxycycline Hyclate) 100 Mg Cap, 100 MG PO BID for Infection, #16 CAP 0 Refills Prov:Messi Cohn MD 03/10/17 Cefdinir (Cefdinir) 300 Mg Cap, 600 MG PO DAILY for Infection, #8 CAP 0 Refills Prov:Messi Cohn MD 03/10/17 Tamsulosin (Flomax) 0.4 Mg Cap, 0.4 MG PO DAILY for BP and urination, #30 CAP Prov:Messi Cohn MD 03/10/17 Metoprolol Tartrate (Lopressor) 50 Mg Tab, 50 MG PO Q12HR for Blood Pressure Management, #60 TAB 11 Refills Prov:Jeffy Fagan MD 02/18/[address] (Aspirin DR) 81 Mg Tabdr, 81 MG PO DAILY for Blood Clot Prevention, # 30 TAB Prov:Chandu Swanson [employer] 02/16/17 Atorvastatin (Atorvastatin) 20 Mg Tab, 20 MG PO DAILY for Blood Pressure Management, #30 TAB Prov:Chandu Swanson [facility] 02/16/17 Thiamine HCl (Gnp Vitamin B-1) 100 Mg Tab, 100 MG PO DAILY for Nutritional Supplement, #30 TAB Prov:Suzanna Koehler MD 02/09/17 Reported Medications Multiple Vitamins W/ Minerals (Preservision Areds) 1 Tab, 2 TAB PO DAILY for Nutritional Supplement, TAB 0 Refills 03/04/17 Ciprofloxacin (Cipro) 500 Mg Tab, 500 MG PO BID for Infection for 7 Days, #14 TAB 0 Refills 03/04/17 Risperidone (Risperdal) 1 Mg Tab, 1 MG PO DAILY AT 5PM, #30 TAB 0 Refills 03/04/17 Risperidone (Risperdal) 0.5 Mg Tab, 0.5 MG PO DAILY for Anxiety, #30 TAB 0 Refills 03/04/17 Lactobacillus Acidophilus (Floranex) 1 Tab, 1 TAB PO BID for Nutritional Supplement, #480 TAB 0 Refills 03/04/17 Zinc Sulfate (Zinc Sulfate) 220 Mg Tab, 220 MG PO DAILY for Nutritional Supplement for 14 Days, #14 TAB 0 Refills 03/04/17 Ascorbic Acid (Vitamin C) 500 Mg Capsule, 500 MG PO BID for Nutritional Supplement 03/04/17 Multiple Vitamins W/ Minerals (Thera-M) 1 Tab, 1 TAB PO DAILY for Nutritional Supplement, TAB 0 Refills 03/04/17 Insulin Aspart Inj (Novolog Inj) 1,000 Unit/10 Ml Vial, 0 SQ ACHS for Blood Sugar Management, #10 ML 0 Refills Sliding Scale as directed. 03/04/17 Amlodipine (Amlodipine) 10 Mg Tab, 10 MG PO DAILY for Blood Pressure Management , TAB 0 Refills 02/06/17 Dorzolamide Opth Drops (Dorzolamide Opth Drops) 2% Soln, 1 DROP RIGHT EYE BID for Glaucoma, #1 BOTTLE 0 Refills 10/13/16 Latanoprost Opth Drops (Latanoprost Opth Drops) 0.005% Drops, 1 DROP RIGHT EYE HS for Glaucoma, #2.5 ML 0 Refills Refrigerate until opened. 10/13/16 Insulin Glargine Inj (Lantus Inj) 1,000 Unit/10 Ml Vial, 30 UNITS SQ HS for Blood Sugar Management, VIAL 0 Refills 10/13/16 Insulin Glargine Inj (Lantus Inj) 1,000 Unit/10 Ml Vial, 25 UNITS SQ DAILY for Blood Sugar Management, VIAL 0 Refills 10/13/16 Current Medications Medications (Trade) Dose Ordered Sig/Myrna Route Start Time Stop Time Status Last Admin (NS Flush) 2 ml UNSCH PRN IV FLUSH 03/04/17 21:00 03/06/17 14:09 (NS Flush) 2 ml BID IV FLUSH 03/04/17 21:00 03/17/17 09:00 (Tylenol) 650 mg Q4H PRN PO 03/04/17 21:00 (Zofran Inj) 4 mg Q6H PRN IVP 03/04/17 21:00 (Narcan Inj) 0.4 mg UNSCH PRN IV PUSH 03/04/17 21:00 (Milk Of Magnesia Liq) 30 ml Q12H PRN PO 03/04/17 21:00 (Norvasc) 10 mg DAILY PO 03/05/17 09:00 03/16/17 09:01 (Lipitor) 20 mg DAILY PO 03/05/17 09:00 03/16/17 08:46 (Trusopt 2% Opth Soln) 1 drop BID RIGHT EYE 03/04/17 21:00 03/16/17 20:20 (Xalatan 0.005% Opth Soln) 1 drop HS RIGHT EYE 03/04/17 21:00 03/15/17 21:00 (Lopressor) 50 mg Q12HR PO 03/04/17 21:00 03/16/17 20:17 (Duoneb Neb) 1 ampule Q4HR NEB PRN NEB 03/06/17 01:15 03/17/17 09:13 (Lasix Inj) 20 mg BID@18 IV PUSH 03/07/17 09:00 03/17/17 09:20 (KCl) 10 meq DAILY PO 03/07/17 09:00 03/16/17 08:45 Miscellaneous Information Patient in critical care unit? Ass... [id number] .XX 03/07/17 17:00 (Levemir Inj) 30 units DAILY SQ 03/09/17 09:00 03/13/17 09:12 (D50w (Vial) Inj) 50 ml UNSCH PRN IV PUSH 03/09/17 00:30 03/17/17 09:20 (Glucagon Inj) 1 mg UNSCH PRN OTHER 03/09/17 00:30 (Cozaar) 25 mg DAILY PO 03/10/17 11:45 03/16/17 09:01 (Flomax) 0.4 mg DAILY PO 03/10/17 11:45 03/16/17 08:46 (Levemir Inj) 25 units HS SQ 03/11/17 21:00 03/16/17 23:52 (Deltasone) 50 mg DAILY PO 03/11/17 12:00 03/16/17 08:46 Pharmacy Profile Note 0 ml @ 0 mls/hr UNSCH OTHER 03/11/17 09:45 (Protonix) 40 mg DAILY PO 03/11/17 10:30 03/16/17 08:43 (NovoLOG SUPPLEMENTAL SCALE) 1 ACHS SLIDING SCALE SQ 03/11/17 21:00 03/16/17 17:00 Vancomycin HCl 1250 mg/Sodium Chloride 262.5 ml @ 250 mls/hr Q36H IV 03/12/17 18:00 03/17/17 05:41 (Bactrim Ds 800-160 Mg) 1 tab Q12H PO 03/12/17 16:00 1/5/18 04:38 (Tums Chew) 500 mg BID PRN PO 03/13/17 19:00 03/13/17 22:57 Lactated Ringer's 1,000 ml @ 30 mls/hr Q24H PRN IV 03/15/17 09:30 03/18/17 09:29 Sodium Chloride 500 ml @ 30 mls/hr [id number] PRN IV 03/15/17 09:30 03/18/17 09:29 (Lopressor) 25 mg WOOD VENEER TAPER PRN PO 03/15/17 09:30 03/18/17 09:29 (Betadine 5% Antisepsis Kit) 1 applic WOOD VENEER TAPER PRN EACH NARE 03/15/17 09:30 03/18/17 09:29 (Chlorhexidine 2% Cloth) 3 pack WOOD VENEER TAPER PRN TOPICAL 03/15/17 09:30 03/18/17 09:29 Lactated Ringer's 1,000 ml @ 30 mls/hr Q24H PRN IV 03/15/17 10:00 03/18/17 09:59 Sodium Chloride 500 ml @ 30 mls/hr [id number] PRN IV 03/15/17 10:00 03/18/17 09:59 (Lopressor) 25 mg WOOD VENEER TAPER PRN PO 03/15/17 10:00 03/18/17 09:59 (Betadine 5% Antisepsis Kit) 1 applic WOOD VENEER TAPER PRN EACH NARE 03/15/17 10:00 03/18/17 09:59 (Chlorhexidine 2% Cloth) 3 pack WOOD VENEER TAPER PRN TOPICAL 03/15/17 10:00 03/18/17 09:59 (NovoLIN R INJ) See Protocol Table ... WOOD VENEER TAPER PRN SQ 03/15/17 10:00 03/18/17 09:59 (Pepcid) 20 mg BID PO 03/15/17 21:00 03/16/17 20:17 (Ativan) 0.5 mg Q8H PRN PO 03/15/17 13:15 03/17/17 04:38 (Haldol Inj) 2 mg Q6H PRN IM 03/15/17 15:30 03/15/17 16:26 (D50w (Vial) Inj) 50 ml UNSCH PRN IV PUSH 03/16/17 09:45 (Glucagon Inj) 1 mg UNSCH PRN OTHER 03/16/17 09:45 Dextrose/Lactated Ringer's 1,000 ml @ 84 mls/hr [id number] IV 03/17/17 10:30 (SEROquel) 25 mg BID@09,12 PO 03/17/17 12:00 Family Psych History No family psychiatric history as per medical records reviewed Social History Substance use history: Remote tobacco use, alcohol abuse in the past but drinks less than one drink per day for the past 10 years. Denies use of any illicit drug use Past medical history: Bladder cancer, hypertension, IDDM Allergies: benazepril, captopril, enalaprilat, fosinopril, lisinopril, quinapril Social history: , retired, on social security benefits, born and raised in [place], lives alone, height medication is some college, [employer]. Physical Exam Patient is very agitated, restless Vital Signs Vital Signs Date Time Temp Pulse Resp B/P (MAP) Pulse Ox O2 Delivery O2 Flow Rate FiO2 03/17/17 11:20 Venturi Mask 6.00 50 03/17/17 10:18 89 83 03/17/17 10:14 97.7 108/74 (85) 03/17/17 09:40 20 I/O 03/17/17 03/17/17 03/18/17 08:00 16:00 00:00 Intake Total 120 ml Output Total 900 ml Balance -780 ml Lab Results Test 03/16/17 13:30 03/17/17 05:50 03/17/17 09:35 03/17/17 10:09 Random Glucose 97 MG/DL 123 MG/DL Creatinine 1.50 MG/DL 1.50 MG/DL Estimat Glomerular Filtration Rate 46 ML/MIN 46 ML/MIN Vancomycin Level Trough 17.2 MCG/ML Blood Gas Puncture Site LT BRACHIAL Blood Gas Patient Temperature 98.6 Venous Blood pH 7.38 Venous Blood Partial Pressure CO2 44 mmHg Venous Blood Partial Pressure O2 26 mmHg Venous Blood HCO3 25 mmol/L Venous Blood Oxygen Saturation 34 % Venous Blood Oxygen Content 3.8 Vol % Venous Blood Base Excess 0.8 mmol/L Oxygen Delivery Device NRB Blood Gas Inspired Oxygen 100 % White Blood Count 14.4 TH/MM3 Red Blood Count 3.08 MIL/MM3 Hemoglobin 8.8 GM/DL Hematocrit 26.8 % Mean Corpuscular Volume 87.0 FL Mean Corpuscular Hemoglobin 28.6 PG Mean Corpuscular Hemoglobin Concent 32.9 % Red Cell Distribution Width 16.8 % Platelet Count 297 TH/MM3 Mean Platelet Volume 8.9 FL Neutrophils (%) (Auto) 81.4 % Lymphocytes (%) (Auto) 10.3 % Monocytes (%) (Auto) 8.2 % Eosinophils (%) (Auto) 0.0 % Basophils (%) (Auto) 0.1 % Neutrophils # (Auto) 11.7 TH/MM3 Lymphocytes # (Auto) 1.5 TH/MM3 Monocytes # (Auto) 1.2 TH/MM3 Eosinophils # (Auto) 0.0 TH/MM3 Basophils # (Auto) 0.0 TH/MM3 CBC Comment DIFF FINAL Differential Comment Blood Urea Nitrogen 45 MG/DL Total Protein 4.3 GM/DL Albumin 1.8 GM/DL Calcium Level 7.2 MG/DL Alkaline Phosphatase 60 U/L Aspartate Amino Transf (AST/SGOT) 48 U/L Alanine Aminotransferase (ALT/SGPT) 41 U/L Total Bilirubin 0.4 MG/DL Sodium Level 143 MEQ/L Potassium Level 3.8 MEQ/L Chloride Level 109 MEQ/L Carbon Dioxide Level 25.8 MEQ/L Anion Gap 8 MEQ/L Lactic Acid Level 1.5 mmol/L Protein Corrected Calcium 8.8 MG/DL Troponin I 0.02 NG/ML Test 03/17/17 11:05 Blood Gas Puncture Site RT BRACHIAL Blood Gas Patient Temperature 98.6 Blood Gas HCO3 22 mmol/L Blood Gas Base Excess -1.2 mmol/L Blood Gas Oxygen Saturation 98 % Arterial Blood pH 7.51 Arterial Blood Partial Pressure CO2 28 mmHg Arterial Blood Partial Pressure O2 199 mmHg Arterial Blood Oxygen Content 12.0 Vol % Arterial Blood Carboxyhemoglobin 1.1 % Arterial Blood Methemoglobin 0.8 % Blood Gas Hemoglobin 8.4 G/DL Oxygen Delivery Device NONREBREATHER Blood Gas Liter Flow 15 L/M Date/Time Source Procedure Growth Status 03/04/17 17:04 Blood Peripheral Aerobic Blood Culture - Final NO GROWTH IN 5 DAYS Complete 03/04/17 17:04 Blood Peripheral Anaerobic Blood Culture - Final NO GROWTH IN 5 DAYS Complete 03/11/17 03:00 Stool Stool Stool Occult Blood (SANGEETA) - Final HEMOCCULT POSITIVE Complete 03/04/17 20:50 Nasal Washing Influenza Types A,B Antigen (SANGEETA) - Final NEGATIVE FOR FLU A AND B ANTIGEN.... Complete 03/11/17 09:42 Urine Clean Catch Urine Culture - Final NO GROWTH IN 48 HOURS. Complete 03/05/17 03:35 Abscess Leg Gram Stain - Final Complete 03/05/17 03:35 Wound Culture - Final Staphylococcus Aureus Complete Mental Status Examination Appearance: Disheveled Consciousness: Clouded Orientation: Person Motor Activity: Abnormal gait Speech: Incoherent Memory: Impaired Mood: Irritable Affect: Other (euphoric) Thought Process & Associations: Loose associations, Tangential Insight: Poor Judgment: Poor (MSE is limited due to level of confusion) Assessment & Plan Problem List: (1) Delirium due to another medical condition ICD Codes: F05 - Delirium due to known physiological condition Assessment & Plan: Psychiatric evaluation today patient is acutely agitated, very restless, disorganized, very confused, unable to provide any meaningful information for the psychiatric assessment. Person patient seems to be consistent with delirium most probably secondary to his multiple underlying medical acute conditions. To control acute agitation I would try to avoid benzodiazepines/narcotic/anticholinergic drugs for their capacity to worsen cognition. Haldol 2-5 mg IM every 8 hours when necessary aggressive behavior and agitation is preferred. Make sure that QTc interval is less than 460. Standing Seroquel dose of 25 mg twice a day for behavioral control. We'll follow-up. Assessment & Plan Estimated LOS: Aung Burt MD Mar 17, 2017 13:10
--- NOTE | 2017-03-17 14:23 | HHI.GIFU ---
Subjective Remarks Pt is restless in bed and confused. Does not follow commands or respond verbally to questions. Objective Vitals I&O Vital Signs Date Time Temp Pulse Resp B/P (MAP) Pulse Ox O2 Delivery O2 Flow Rate FiO2 03/17/17 11:20 Venturi Mask 6.00 50 03/17/17 10:18 89 83 03/17/17 10:14 97.7 76 108/74 (85) 03/17/17 09:40 97.5 86 20 03/17/17 09:20 97.3 67 19 114/58 (76) 88 03/17/17 05:00 98.4 72 19 152/60 (90) 94 03/17/17 00:30 98.6 67 19 121/69 (86) 96 03/17/17 00:00 96 Nasal Cannula 2.00 03/16/17 22:28 2.00 03/16/17 20:30 99.0 70 19 136/63 (87) 98 03/16/17 16:00 97.5 70 18 113/80 (91) 94 I/O 03/16/17 03/16/17 03/16/17 03/17/17 03/17/17 03/17/17 07:00 15:00 23:00 07:00 15:00 23:00 Intake Total 120 ml Output Total 1600 ml 800 ml 900 ml Balance -1600 ml -800 ml -780 ml Intake Oral 120 ml Output Urine Total 1600 ml 800 ml 900 ml # Bowel Movements 1 Laboratory Laboratory Tests Test 03/17/17 05:50 03/17/17 09:35 03/17/17 10:09 03/17/17 11:05 Creatinine 1.50 1.50 Estimat Glomerular Filtration Rate 46 46 Vancomycin Level Trough 17.2 Blood Gas Puncture Site LT BRACHIAL RT BRACHIAL Blood Gas Patient Temperature 98.6 98.6 Venous Blood pH 7.38 Venous Blood Partial Pressure CO2 44 Venous Blood Partial Pressure O2 26 Venous Blood HCO3 25 Venous Blood Oxygen Saturation 34 Venous Blood Oxygen Content 3.8 Venous Blood Base Excess 0.8 Oxygen Delivery Device NRB NONREBREATHER Blood Gas Inspired Oxygen 100 White Blood Count 14.4 Red Blood Count 3.08 Hemoglobin 8.8 Hematocrit 26.8 Mean Corpuscular Volume 87.0 Mean Corpuscular Hemoglobin 28.6 Mean Corpuscular Hemoglobin Concent 32.9 Red Cell Distribution Width 16.8 Platelet Count 297 Mean Platelet Volume 8.9 Neutrophils (%) (Auto) 81.4 Lymphocytes (%) (Auto) 10.3 Monocytes (%) (Auto) 8.2 Eosinophils (%) (Auto) 0.0 Basophils (%) (Auto) 0.1 Neutrophils # (Auto) 11.7 Lymphocytes # (Auto) 1.5 Monocytes # (Auto) 1.2 Eosinophils # (Auto) 0.0 Basophils # (Auto) 0.0 CBC Comment DIFF FINAL Differential Comment Blood Urea Nitrogen 45 Random Glucose 123 Total Protein 4.3 Albumin 1.8 Calcium Level 7.2 Alkaline Phosphatase 60 Aspartate Amino Transf (AST/SGOT) 48 Alanine Aminotransferase (ALT/SGPT) 41 Total Bilirubin 0.4 Sodium Level 143 Potassium Level 3.8 Chloride Level 109 Carbon Dioxide Level 25.8 Anion Gap 8 Lactic Acid Level 1.5 Protein Corrected Calcium 8.8 Troponin I 0.02 Blood Gas HCO3 22 Blood Gas Base Excess -1.2 Blood Gas Oxygen Saturation 98 Arterial Blood pH 7.51 Arterial Blood Partial Pressure CO2 28 Arterial Blood Partial Pressure O2 199 Arterial Blood Oxygen Content 12.0 Arterial Blood Carboxyhemoglobin 1.1 Arterial Blood Methemoglobin 0.8 Blood Gas Hemoglobin 8.4 Blood Gas Liter Flow 15 Date/Time Source Procedure Growth Status 03/04/17 17:04 Blood Peripheral Aerobic Blood Culture - Final NO GROWTH IN 5 DAYS Complete 03/04/17 17:04 Blood Peripheral Anaerobic Blood Culture - Final NO GROWTH IN 5 DAYS Complete 03/11/17 03:00 Stool Stool Stool Occult Blood (SANGEEAT) - Final HEMOCCULT POSITIVE Complete 03/04/17 20:50 Nasal Washing Influenza Types A,B Antigen (SANGEETA) - Final NEGATIVE FOR FLU A AND B ANTIGEN.... Complete 03/11/17 09:42 Urine Clean Catch Urine Culture - Final NO GROWTH IN 48 HOURS. Complete 03/05/17 03:35 Abscess Leg Gram Stain - Final Complete 03/05/17 03:35 Wound Culture - Final Staphylococcus Aureus Complete Imaging Last Impressions Chest X-Ray 03/17/17 0000 Signed Impressions: Service Date/Time: Friday, March 17, 2017 09:43 - CONCLUSION: 1. Subsegmental atelectasis right base. There has been no significant change when compared to the prior exam. Gilberto Wisdom MD Venous Access Device Injection 03/14/17 0000 Signed Impressions: Service Date/Time: Tuesday, March 14, 2017 12:06 - CONCLUSION: 1. The port is in excellent position and flushes easily. 2. Contrast could not be withdrawn from the port though no definite fibrin sheath is evident around the catheter. The catheter was locked with 4 mg of TPA. Jose J Ibarra MD Brain MRI 03/05/17 0000 Signed Impressions: Service Date/Time: Sunday, March 05, 2017 11:28 - CONCLUSION: Moderate motion artifact. Negative for acute ischemic event. Atrophy with periventricular changes. Bennett Ibarra MD FACR Abdomen/Pelvis CT 03/04/17 1742 Signed Impressions: Service Date/Time: Saturday, March 04, 2017 18:28 - CONCLUSION: 1. Bilateral pleural effusions small to moderate in size. 2. No acute findings in the abdomen and pelvis. Corby Melendez MD Head CT 03/04/17 1732 Signed Impressions: Service Date/Time: Saturday, March 04, 2017 18:18 - CONCLUSION: No acute intracranial findings. Partial opacification of right sided mastoid air cells new. Corby Melendez MD Physical Exam HEENT: Normocephalic; atraumatic CHEST: Rales- on venti mask ABDOMEN: Soft, bowel sounds active x 4. 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 Not following commands. Assessment and Plan Plan Assessment - Anemia- normocytic- likely multifactorial, of note, he does have renal insufficiency. (+) hemoccult stool. S/P EGD/colonoscopy (03/16) --> Esophagitis, esophageal ulcer, non-bleeding ulcer in the rectum, diverticulosis. Pathology pending. H/H remains low, currently 8.8/26.8. Has receive 5 U PRBC , last transfused Mar 12. On Protonix. - Hx of bladder cancer He is status post TURBT on September 01 and completed 4 cycles of neoadjuvant chemotherapy in January 2017. Oncology on the case - AMS- noted to have low O2 sat this morning and low BGL. Currently on venturi mask. - UTI, chronic Caballero, on abx Plan: - Continue Protonix - Await pathology - Monitor H/H - Transfuse as needed - Notify GI of any active bleeding - Supportive care Patient has been seen and examined by myself and Dr. Jordan and this note is written on his behalf Asha Sullivan Mar 17, 2017 14:23
--- NOTE | 2017-03-17 19:17 | MG ---
cc: SARA JONES M.D. Lab No: [id number] Date: 03/17/2017 Age: Sex: M Race: TECHNIQUE: 17 channel EEG. DESCRIPTION: The background rhythm reveals generalized slowing in the theta range at 6 Hz. Amplitude is 20 microvolts. There are no epileptiform discharges. There are no lateralizing features. Muscle artifact is identified in the tracing. Photic stimulation does not result in a driving response. INTERPRETATION: Abnormal study consistent with a moderate encephalopathy. MD DEVEN Ceron/JAVIER /5:52 PM /6:44 PM
--- NOTE | 2017-03-17 20:55 | EKG ---
Date Performed: 03/17/2017 Time Performed: 13:36:51 PTAGE: 76 years EKG: Sinus rhythm NONSPECIFIC ST & T-WAVE ABNORMALITY BORDERLINE ECG PREVIOUS TRACING : 03/04/2017 17.58 Compared to prior tracing no significant change DOCTOR: Shaun Wolf Interpretating Date/Time 03/17/2017 20:53:24
[2017-03-17] MEDS: LATANOPROST 0.005% OPHT SOLN 2.5 ML BTL RIGHT EYE SCH (21:00)
[2017-03-18] VITALS (7 sets, daily range): BP systolic 120–170; BP diastolic 60–89; PULSE 61–89; RESP 18–22; TEMP 97.9–98.6; O2SAT 94–100
[2017-03-18] MEDS: SULFAMETHOXAZOLE-TRIMETHOPRIM DS 800-160 MG TAB PO SCH ×2 (04:45→16:42)
[2017-03-18] MEDS: DEXTROSE 5%-LACTATED RING INJ 1,000 ML IV SCH ×2 (05:41→22:15)
[2017-03-18] MEDS: INSULIN ASPART SUPPLEMENTAL SCALE SQ SCH ×4 (08:00→21:00)
[2017-03-18] MEDS: FUROSEMIDE 20 MG/2 ML VIAL IV PUSH SCH ×2 (09:16→18:24)
[2017-03-18] MEDS: SODIUM CHLORIDE 0.9% FLUSH 10 ML FLUSH IV FLUSH SCH ×2 (09:16→21:00)
[2017-03-18] MEDS: LOSARTAN 25 MG TAB PO SCH (09:16)
[2017-03-18] MEDS: predniSONE 50 MG TAB PO SCH (09:16)
[2017-03-18] MEDS: POTASSIUM CHLORIDE 10 MEQ CAP PO SCH (09:17)
[2017-03-18] MEDS: QUEtiapine FUMARATE 25 MG TAB PO SCH ×2 (09:17→12:21)
[2017-03-18] MEDS: METOPROLOL TARTRATE 50 MG TAB PO SCH ×2 (09:17→21:00)
[2017-03-18] MEDS: TAMSULOSIN HCL 0.4 MG CAP PO SCH (09:17)
[2017-03-18] MEDS: ATORVASTATIN 20 MG TAB PO SCH (09:17)
[2017-03-18] MEDS: PANTOPRAZOLE SOD 40 MG DELAYED RELEASE TAB PO SCH (09:17)
[2017-03-18] MEDS: DORZOLAMIDE 2% OPTH SOLN 200 DROP/10 ML BTLO RIGHT EYE SCH ×2 (09:18→21:00)
[2017-03-18] MEDS: INSULIN DETEMIR 100 UNITS/ML VIAL SQ SCH ×2 (09:18→21:00)
--- NOTE | 2017-03-18 12:04 | RADRPT ---
EXAM DATE/TIME: 03/18/2017 11:31 [facility] COMPARISON: CT BRAIN W/O CONTRAST, March 04, 2017, 18:18. INDICATIONS : Altered mental status. Hallucinating. RADIATION DOSE: 56.35 CTDIvol (mGy) MEDICAL HISTORY : Cerebrovascular disease. Hypertension. Carcinoma, bladder. SURGICAL HISTORY : None. ENCOUNTER: Initial ACUITY: 2 days PAIN SCALE: Non-responsive LOCATION: cranial TECHNIQUE: Multiple contiguous axial images were obtained of the head. Using automated exposure control and adj ustment of the mA and/or kV according to patient size, radiation dose was kept as low as reasonably a chievable to obtain optimal diagnostic quality images. DICOM format image data is available electro nically for review and comparison. FINDINGS: CEREBRUM: Diffuse cerebral atrophy is noted. No evidence of midline shift, mass lesion, hemorrhage or acute in farction. No extra-axial fluid collections are seen. Scattered old infarcts are noted within the jessica ateral basal ganglia. POSTERIOR FOSSA: The cerebellum and brainstem are intact. The 4th ventricle is midline. The cerebellopontine angle i s unremarkable. EXTRACRANIAL: The visualized portion of the orbits is intact. Fluid is noted within the right mastoid air cells. SKULL: The calvaria is intact. No evidence of skull fracture. CONCLUSION: 1. 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 2. Diffuse cerebral atrophy. 3. No acute infarct, acute hemorrhage, mass effect or extra-axial fluid collections. 4. Fluid is noted within the right mastoid air cells. Mejia Davidson MD on March 18, 2017 at 11:55 Board Certified Radiologist. This report was verified electronically.
--- NOTE | 2017-03-18 13:00 | HHI.PR ---
Subjective Remarks Follow-up encephalopathy, hypoxia, urinary retention. The patient is nonverbal. He does not follow commands at this time. Objective Vitals Vital Signs Date Time Temp Pulse Resp B/P (MAP) Pulse Ox O2 Delivery O2 Flow Rate FiO2 03/18/17 09:49 94 Venturi Mask 50 03/18/17 08:00 97.9 61 22 170/76 (107) 96 03/18/17 04:45 98.6 89 22 120/89 (99) 100 03/18/17 00:40 98.1 88 19 128/88 (101) 100 03/17/17 20:40 98.0 80 19 129/80 (96) 100 03/17/17 20:00 100 Venturi Mask 6.00 50 03/17/17 16:00 97.7 72 16 142/60 (87) 94 I/O 03/17/17 03/17/17 03/17/17 03/18/17 03/18/17 03/18/17 07:00 15:00 23:00 07:00 15:00 23:00 Intake Total 120 ml 999 ml 0 ml Output Total 900 ml 700 ml 900 ml Balance -780 ml 299 ml -900 ml Intake Oral 120 ml 0 ml 0 ml IV Total 999 ml Output Urine Total 900 ml 700 ml 900 ml # Bowel Movements 0 0 Result Diagram: 03/17/17 1009 03/17/17 1009 Imaging Last Impressions Head CT 03/18/17 0000 Signed Impressions: Service Date/Time: Saturday, March 18, 2017 11:31 - CONCLUSION: 1. 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 2. Diffuse cerebral atrophy. 3. No acute infarct, acute hemorrhage, mass effect or extra-axial fluid collections. 4. Fluid is noted within the right mastoid air cells. Mejia Davidson MD Chest X-Ray 03/17/17 0000 Signed Impressions: Service Date/Time: Friday, March 17, 2017 09:43 - CONCLUSION: 1. Subsegmental atelectasis right base. There has been no significant change when compared to the prior exam. Gilberto Wisdom MD Venous Access Device Injection 03/14/17 0000 Signed Impressions: Service Date/Time: Tuesday, March 14, 2017 12:06 - CONCLUSION: 1. The port is in excellent position and flushes easily. 2. Contrast could not be withdrawn from the port though no definite fibrin sheath is evident around the catheter. The catheter was locked with 4 mg of TPA. Jose J Ibarra MD Brain MRI 03/05/17 0000 Signed Impressions: Service Date/Time: Sunday, March 05, 2017 11:28 - CONCLUSION: Moderate motion artifact. Negative for acute ischemic event. Atrophy with periventricular changes. Bennett Ibarra MD FACR Abdomen/Pelvis CT 03/04/17 1742 Signed Impressions: Service Date/Time: Saturday, March 04, 2017 18:28 - CONCLUSION: 1. Bilateral pleural effusions small to moderate in size. 2. No acute findings in the abdomen and pelvis. Corby Melendez MD Objective Remarks General: Elderly male in no acute distress. In soft restraints. Heart: Regular rate and rhythm. No murmur. Lungs: Bibasilar crackles are noted. Breathing is nonlabored. Abdomen: Soft, nontender, nondistended. Extremities: No right lower extremity edema. Left below-knee amputation. Psych: Sleeping, lethargic. Does not answer questions. Procedures None Urinary Catheter: Yes Assessment to: Continue Caballero insert reason: Obstruction/Retention Vascular Central Line Catheter: No A/P Problem List: (1) Catheter-associated urinary tract infection ICD Code: T83.511A - Infection and inflammatory reaction due to indwelling urethral catheter, initial encounter; N39.0 - Urinary tract infection, site not specified Status: Acute (2) Metabolic encephalopathy ICD Code: G93.41 - Metabolic encephalopathy Status: Acute Assessment and Plan 1. Acute metabolic encephalopathy: Likely secondary to hypoglycemia, hypoxia, sedating medications. Ativan has been discontinued. EEG shows encephalopathy. CT of the head is unremarkable. 2. Hypoxia: Continue supplemental oxygen. Patient now on Ventimask. Consult pulmonology. 3. Possible healthcare acquired pneumonia: Continue antibiotics, oxygen. Tapering off steroids. 4. Pyuria: Possibly epididymitis. Switched from Rocephin to Bactrim. Caballero catheter in place. 5. Urinary retention: Caballero catheter in place. Appreciate urology recommendations. 6. History of bladder cancer: Appreciate oncology, urology recommendations. 7. Insulin-dependent diabetes mellitus: Continue Levemir. Monitor Accu-Cheks and cover with sliding scale insulin. 8. Hypertension: Continue home medications. 9. Hyperlipidemia: Continue home medications. 10. Agitation: Appreciate psychiatry recommendations. Continue soft restraints. 11. Generalized weakness: Continue PT/OT. 12. GI bleed: Status post EGD/colonoscopy 03/16/16. Appreciate GI recommendations. Monitor H&H. 13. DVT prophylaxis: SCDs. Avoid chemical prophylaxis secondary to possible GI bleed. Nicholas Loredo MD Mar 18, 2017 13:00
[2017-03-18] MEDS: DEXTROSE 50% IN WATER 50 ML VIAL(D50) IV PUSH PRN ×2 (16:50→21:08)
--- NOTE | 2017-03-18 18:13 | MB ---
cc: SANDRA MOSES MD DATE OF CONSULTATION: 03/18/2017. REASON FOR CONSULTATION: Hypoxemia. HISTORY OF PRESENT ILLNESS: The history could not be obtained. All my information is from the record. The patient is nonverbal. The patient does have encephalopathy. He was starting to have hypoxemia. He did have urinary retention. He does have a history of diabetes mellitus and bladder cancer. Apparently the patient was on a significant amount of oxygen; however, right now, it is being weaned down. He is currently on 6 liters at 35%. He is not having any significant secretions or coughing according to the bedside nurse. His past medical history, social history, allergies, medications, all reviewed in detail. A review of systems could not be obtained. PHYSICAL EXAMINATION: VITAL SIGNS: Temperature 98.4, pulse 72, respiratory rate 20, blood pressure 158/73. He is satting at 96%. NECK: Trachea is midline. LUNGS: Bilateral rhonchi and mild basilar crackles on the left side. HEART: Normal S1 and S2. ABDOMEN: Soft. No signs to suggest any tenderness. EXTREMITIES: He did not have any significant edema on the left. He does have a left below-knee amputation. ASSESSMENT AND PLAN: 1. Hypoxemia. The differential diagnosis is wide however I do believe it is likely secondary to atelectasis and questionable pneumonia. I would like him to continue on the current antibiotics, try to do pulmonary toileting as much as possible, continue weaning off the oxygen as tolerated; therefore, 02 saturation more than 88%. If we cannot wean him off the oxygen, I may consider ruling out a pulmonary embolism by ordering a CT chest and a VQ scan because of his compromised renal function; however, at this point, I would like to continue to follow conservatively and wean off the FIO2. Thank you for this consultation. MD MARSHALL Trinidad/JAVIER /4:59 PM /5:53 PM
[2017-03-18] MEDS: VANCOMYCIN INJ 1,250 MG in SODIUM CHLOR 0.9% 250 ML INJ 250 ML IV SCH (18:24)
[2017-03-18] MEDS: LATANOPROST 0.005% OPHT SOLN 2.5 ML BTL RIGHT EYE SCH (21:00)
[2017-03-19] VITALS (9 sets, daily range): BP systolic 117–150; BP diastolic 58–73; PULSE 64–72; RESP 18–20; TEMP 97.5–98.1; O2SAT 94–99
[2017-03-19] MEDS: SULFAMETHOXAZOLE-TRIMETHOPRIM DS 800-160 MG TAB PO SCH ×2 (04:09→16:06)
[2017-03-19] MEDS: INSULIN ASPART SUPPLEMENTAL SCALE SQ SCH ×3 (08:00→17:26)
[2017-03-19] MEDS: INSULIN DETEMIR 100 UNITS/ML VIAL SQ SCH (09:00)
[2017-03-19 09:38] LABS: AUTOMATED NEUTROPHIL # 7.6 TH/MM3 (1.8-7.7); BASOPHIL % 0.2 % (0.0-2.0); HEMATOCRIT 28.1 % (39.0-51.0); HEMOGLOBIN 9.3 GM/DL (13.0-17.0); LYMPH % 8.7 % (9.0-44.0); LYMPHOCYTE # 0.8 TH/MM3 (1.0-4.8); MEAN CORPUSCULAR HEMOGLOBIN 29.1 PG (27.0-34.0); MEAN PLATELET VOLUME 8.8 FL (7.0-11.0); MONO % 7.7 % (0.0-8.0); MONOCYTE # 0.7 TH/MM3 (0-0.9); NEUT % 83.4 % (16.0-70.0); PLATELET COUNT 228 TH/MM3 (150-450); RED CELL DISTRIBUTION WIDTH 16.7 % (11.6-17.2); WHITE BLOOD COUNT 9.2 TH/MM3 (4.0-11.0)
[2017-03-19] MEDS: LOSARTAN 25 MG TAB PO SCH (09:39)
[2017-03-19] MEDS: TAMSULOSIN HCL 0.4 MG CAP PO SCH (09:40)
[2017-03-19] MEDS: QUEtiapine FUMARATE 25 MG TAB PO SCH ×2 (09:40→12:21)
[2017-03-19] MEDS: predniSONE 50 MG TAB PO SCH (09:40)
[2017-03-19] MEDS: POTASSIUM CHLORIDE 10 MEQ CAP PO SCH (09:40)
[2017-03-19] MEDS: METOPROLOL TARTRATE 50 MG TAB PO SCH (09:40)
[2017-03-19] MEDS: PANTOPRAZOLE SOD 40 MG DELAYED RELEASE TAB PO SCH (09:40)
[2017-03-19] MEDS: ATORVASTATIN 20 MG TAB PO SCH (09:40)
[2017-03-19] MEDS: DORZOLAMIDE 2% OPTH SOLN 200 DROP/10 ML BTLO RIGHT EYE SCH (09:41)
[2017-03-19] MEDS: SODIUM CHLORIDE 0.9% FLUSH 10 ML FLUSH IV FLUSH SCH (09:41)
[2017-03-19] MEDS: FUROSEMIDE 20 MG/2 ML VIAL IV PUSH SCH ×2 (09:41→18:00)
[2017-03-19] MEDS: DEXTROSE 5%-LACTATED RING INJ 1,000 ML IV SCH ×2 (10:10→15:03)
[2017-03-19 10:15] LABS: BICARBONATE 24.2 MEQ/L (21.0-32.0); CALCIUM 7.6 MG/DL (8.5-10.1); CREATININE 1.1 MG/DL (0.60-1.30); MAGNESIUM 1.9 MG/DL (1.5-2.5)
--- NOTE | 2017-03-19 13:11 | HHI.PR ---
Subjective Remarks Follow up hypoxia, encephalopathy. Patient is alert, but does not answer questions. No events reported by nursing. Objective Vitals Vital Signs Date Time Temp Pulse Resp B/P (MAP) Pulse Ox O2 Delivery O2 Flow Rate FiO2 03/19/17 12:00 98.1 65 20 117/58 (77) 94 03/19/17 09:10 99 Venturi Mask 40 03/19/17 08:00 94 Venturi Mask 6.00 03/19/17 08:00 97.8 72 18 134/64 (87) 94 03/19/17 04:00 97.9 70 20 125/73 (90) 97 03/19/17 03:51 95 Venturi Mask 6.00 40 03/19/17 03:29 Venturi Mask 6.00 03/19/17 00:00 97.7 64 20 132/60 (84) 95 03/18/17 21:04 98.6 64 18 125/60 (81) 95 03/18/17 19:35 Venturi Mask 6.00 03/18/17 16:00 98.1 78 18 136/62 (86) 95 I/O 03/18/17 03/18/17 03/18/17 03/19/17 03/19/17 03/19/17 07:00 15:00 23:00 07:00 15:00 23:00 Intake Total 0 ml 297 ml 220 ml Output Total 900 ml 1000 ml 600 ml Balance -900 ml -1000 ml 297 ml -380 ml Intake Oral 0 ml 220 ml IV Total 297 ml Output Urine Total 900 ml 1000 ml 600 ml # Bowel Movements 0 1 0 Result Diagram: 03/19/17 0910 03/19/17 0910 Imaging Last Impressions Head CT 03/18/17 0000 Signed Impressions: Service Date/Time: Saturday, March 18, 2017 11:31 - CONCLUSION: 1. 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 2. Diffuse cerebral atrophy. 3. No acute infarct, acute hemorrhage, mass effect or extra-axial fluid collections. 4. Fluid is noted within the right mastoid air cells. Mejia Davidson MD Chest X-Ray 03/17/17 0000 Signed Impressions: Service Date/Time: Friday, March 17, 2017 09:43 - CONCLUSION: 1. Subsegmental atelectasis right base. There has been no significant change when compared to the prior exam. Gilberto Wisdom MD Venous Access Device Injection 03/14/17 0000 Signed Impressions: Service Date/Time: Tuesday, March 14, 2017 12:06 - CONCLUSION: 1. The port is in excellent position and flushes easily. 2. Contrast could not be withdrawn from the port though no definite fibrin sheath is evident around the catheter. The catheter was locked with 4 mg of TPA. Jose J Ibarra MD Brain MRI 03/05/17 0000 Signed Impressions: Service Date/Time: Sunday, March 05, 2017 11:28 - CONCLUSION: Moderate motion artifact. Negative for acute ischemic event. Atrophy with periventricular changes. Bennett Ibarra MD FACR Abdomen/Pelvis CT 03/04/17 1742 Signed Impressions: Service Date/Time: Saturday, March 04, 2017 18:28 - CONCLUSION: 1. Bilateral pleural effusions small to moderate in size. 2. No acute findings in the abdomen and pelvis. Corby Melendez MD Objective Remarks General: Elderly male in no acute distress. In soft restraints. Heart: Regular rate and rhythm. No murmur. Lungs: Bibasilar crackles are noted. Breathing is nonlabored. Abdomen: Soft, nontender, nondistended. Extremities: No right lower extremity edema. Left below-knee amputation. Psych: Sleeping, lethargic. Does not answer questions. : Urethral meatus with possible purulent drainage. No erythema noted. Caballero catheter in place. Procedures None Urinary Catheter: Yes Assessment to: Continue Caballero insert reason: Obstruction/Retention Vascular Central Line Catheter: No A/P Problem List: (1) Catheter-associated urinary tract infection ICD Code: T83.511A - Infection and inflammatory reaction due to indwelling urethral catheter, initial encounter; N39.0 - Urinary tract infection, site not specified Status: Acute (2) Metabolic encephalopathy ICD Code: G93.41 - Metabolic encephalopathy Status: Acute Assessment and Plan 1. Acute metabolic encephalopathy: Likely secondary to hypoglycemia, hypoxia, sedating medications. Ativan has been discontinued. EEG shows encephalopathy. CT of the head is unremarkable. 2. Hypoxia: Continue supplemental oxygen. Patient now on Ventimask. Appreciate pulmonology recommendations. Check VQ scan to evaluate for possible pulmonary embolus. 3. Possible healthcare acquired pneumonia: Continue antibiotics, oxygen. Tapering off steroids. 4. Pyuria: Possibly epididymitis. Switched from Rocephin to Bactrim. Caballero catheter in place. 5. Urinary retention: Caballero catheter in place. Reconsult urology to re-evaluate urethral meatus. 6. History of bladder cancer: Appreciate oncology, urology recommendations. 7. Insulin-dependent diabetes mellitus: Continue Levemir. Monitor Accu-Cheks and cover with sliding scale insulin. 8. Hypertension: Continue home medications. 9. Hyperlipidemia: Continue home medications. 10. Agitation: Appreciate psychiatry recommendations. Continue soft restraints. 11. Generalized weakness: Continue PT/OT. 12. GI bleed: Status post EGD/colonoscopy 03/16/16. Appreciate GI recommendations. Monitor H&H. 13. DVT prophylaxis: SCDs. Avoid chemical prophylaxis secondary to possible GI bleed. Nicholas Loredo MD Mar 19, 2017 13:11
--- NOTE | 2017-03-19 16:44 | HHI.PR ---
Subjective Remarks better Fio2 weaned down Objective Vital Signs Date Time Temp Pulse Resp B/P (MAP) Pulse Ox O2 Delivery O2 Flow Rate FiO2 03/19/17 12:00 98.1 65 20 117/58 (77) 94 03/19/17 09:10 99 Venturi Mask 40 03/19/17 08:00 94 Venturi Mask 6.00 03/19/17 08:00 97.8 72 18 134/64 (87) 94 03/19/17 04:00 97.9 70 20 125/73 (90) 97 03/19/17 03:51 95 Venturi Mask 6.00 40 03/19/17 03:29 Venturi Mask 6.00 03/19/17 00:00 97.7 64 20 132/60 (84) 95 03/18/17 21:04 98.6 64 18 125/60 (81) 95 03/18/17 19:35 Venturi Mask 6.00 I/O 03/18/17 03/18/17 03/18/17 03/19/17 03/19/17 03/19/17 07:00 15:00 23:00 07:00 15:00 23:00 Intake Total 0 ml 297 ml 220 ml 1000 ml Output Total 900 ml 1000 ml 600 ml Balance -900 ml -1000 ml 297 ml -380 ml 1000 ml Intake Oral 0 ml 220 ml IV Total 297 ml 1000 ml Output Urine Total 900 ml 1000 ml 600 ml # Bowel Movements 0 1 0 Result Diagram: 03/19/17 0910 03/19/17 0910 Objective Remarks PHYSICAL EXAMINATION: . NECK: Trachea is midline. LUNGS: Bilateral rhonchi and mild basilar crackles on the left side. HEART: Normal S1 and S2. ABDOMEN: Soft. No signs to suggest any tenderness. EXTREMITIES: He did not have any significant edema on the left. He does have a left below-knee amputation. Assessment and Plan Assessment and Plan ASSESSMENT AND PLAN: 1. Hypoxemia. better cont weaning off Fio2, will be on nasal canula I would like him to continue on the current antibiotics, try to do pulmonary toileting as much as possible,. I will cont to follow . Quirino Lawrence MD Mar 19, 2017 16:44
[2017-03-20] VITALS (8 sets, daily range): BP systolic 118–178; BP diastolic 56–82; PULSE 61–76; RESP 18–20; TEMP 97.2–98.6; O2SAT 93–99
[2017-03-20] MEDS: DORZOLAMIDE 2% OPTH SOLN 200 DROP/10 ML BTLO RIGHT EYE SCH ×3 (00:06→21:00)
[2017-03-20] MEDS: INSULIN DETEMIR 100 UNITS/ML VIAL SQ SCH ×3 (00:06→22:39)
[2017-03-20] MEDS: INSULIN ASPART SUPPLEMENTAL SCALE SQ SCH ×5 (00:07→22:39)
[2017-03-20] MEDS: METOPROLOL TARTRATE 50 MG TAB PO SCH ×3 (00:07→22:40)
[2017-03-20] MEDS: SODIUM CHLORIDE 0.9% FLUSH 10 ML FLUSH IV FLUSH SCH ×3 (00:13→22:41)
[2017-03-20] MEDS: LATANOPROST 0.005% OPHT SOLN 2.5 ML BTL RIGHT EYE SCH ×2 (00:14→21:00)
[2017-03-20] MEDS: SULFAMETHOXAZOLE-TRIMETHOPRIM DS 800-160 MG TAB PO SCH ×2 (06:00→17:27)
[2017-03-20 08:09] LABS: BICARBONATE 25.4 MEQ/L (21.0-32.0); CALCIUM 7.6 MG/DL (8.5-10.1); CREATININE 1.28 MG/DL (0.60-1.30)
[2017-03-20] MEDS: POTASSIUM CHLORIDE 10 MEQ CAP PO SCH (09:00)
[2017-03-20] MEDS: ATORVASTATIN 20 MG TAB PO SCH (09:06)
[2017-03-20] MEDS: LOSARTAN 25 MG TAB PO SCH (09:06)
[2017-03-20] MEDS: PANTOPRAZOLE SOD 40 MG DELAYED RELEASE TAB PO SCH (09:07)
[2017-03-20] MEDS: predniSONE 50 MG TAB PO SCH (10:01)
[2017-03-20] MEDS: FUROSEMIDE 20 MG/2 ML VIAL IV PUSH SCH ×2 (10:05→17:40)
[2017-03-20] MEDS: QUEtiapine FUMARATE 25 MG TAB PO SCH ×2 (10:05→12:45)
[2017-03-20] MEDS: TAMSULOSIN HCL 0.4 MG CAP PO SCH (10:06)
--- NOTE | 2017-03-20 10:30 | HHI.PYPN ---
Subjective Remarks Patient was seen today for psychiatric reevaluation after discussion with nurse in charge. Patient is restrained in upper extremities due to behavioral dysregulation and because the patient has been trying to rip IVs. Patient is calm, superficially cooperative, alert, but confused and disoriented. He says that he feels much better, denies depressive symptoms, he denies distress or pain, he denies suicidal and homicidal ideation, however, he seems to be internally stimulated and reports that there are many people inside the room when there is just the nurse and me. She has been compliant with his medications, no significant side effects. Mental Status Examination Appearance: Appropriate Consciousness: Alert, Clouded Orientation: Person Motor Activity: Abnormal gait Speech: Incoherent Fund of Knowledge: Inadequate Attention and Concentration: Easily Distracted, Inadequate Memory: Impaired Mood: Irritable Affect: Irritable, Other (euphoric) Thought Process & Associations: Loose associations, Tangential Hallucination Type: Visual Suicidal Ideation: No Suicidal Plan: No Suicidal Intention: No Homicidal Ideation: No Homicidal Plan: No Homicidal Intention: No Insight: Fair Judgment: Impulsive Results Labs Test 03/20/17 06:00 03/20/17 07:07 Blood Urea Nitrogen 34 MG/DL Creatinine 1.28 MG/DL Random Glucose 148 MG/DL Calcium Level 7.6 MG/DL Sodium Level 144 MEQ/L Potassium Level 4.6 MEQ/L Chloride Level 112 MEQ/L Carbon Dioxide Level 25.4 MEQ/L Anion Gap 7 MEQ/L Estimat Glomerular Filtration Rate 55 ML/MIN Date/Time Source Procedure Growth Status 03/04/17 17:04 Blood Peripheral Aerobic Blood Culture - Final NO GROWTH IN 5 DAYS Complete 03/04/17 17:04 Blood Peripheral Anaerobic Blood Culture - Final NO GROWTH IN 5 DAYS Complete 03/11/17 03:00 Stool Stool Stool Occult Blood (SANGEETA) - Final HEMOCCULT POSITIVE Complete 03/04/17 20:50 Nasal Washing Influenza Types A,B Antigen (SANGEETA) - Final NEGATIVE FOR FLU A AND B ANTIGEN.... Complete 03/11/17 09:42 Urine Clean Catch Urine Culture - Final NO GROWTH IN 48 HOURS. Complete 03/05/17 03:35 Abscess Leg Gram Stain - Final Complete 03/05/17 03:35 Wound Culture - Final Staphylococcus Aureus Complete Vitals/IOs Vital Signs Date Time Temp Pulse Resp B/P (MAP) Pulse Ox O2 Delivery O2 Flow Rate FiO2 1/8/18 08:00 98.4 73 19 149/82 (104) 95 03/20/17 07:41 Nasal Cannula 5.00 03/19/17 17:47 40 Assessment & Plan Problem List: (1) Delirium due to another medical condition ICD Codes: F05 - Delirium due to known physiological condition Assessment & Plan: Patient continues to be in a state of delirium, but more engageable in a conversation communicative and alert than Monday. Continue current psychotropic regimen. Assessment & Plan Estimated LOS: days Justification for Cont. Inpt. At this point is unclear if the patient needs psychiatric admission. I will follow up Aung Cuevas MD Mar 20, 2017 10:30
--- NOTE | 2017-03-20 10:51 | HHI.PR ---
Subjective Remarks Follow up encephalopathy, hypoxia. Patient is alert, but confused. Denies chest pain, dyspnea, nausea, vomiting. Objective Vitals Vital Signs Date Time Temp Pulse Resp B/P (MAP) Pulse Ox O2 Delivery O2 Flow Rate FiO2 03/20/17 08:00 98.4 73 19 149/82 (104) 95 03/20/17 07:41 93 Nasal Cannula 5.00 03/20/17 06:24 97.3 61 19 178/77 (110) 96 03/20/17 01:59 97.2 73 18 147/63 (91) 94 03/19/17 20:59 97.5 70 18 150/63 (92) 99 03/19/17 19:25 Nasal Cannula 6.00 03/19/17 17:47 96 Venturi Mask 6.00 40 03/19/17 16:00 97.9 69 18 149/68 (95) 96 03/19/17 12:00 98.1 65 20 117/58 (77) 94 I/O 03/19/17 03/19/17 03/19/17 03/20/17 03/20/17 03/20/17 07:00 15:00 23:00 07:00 15:00 23:00 Intake Total 220 ml 480 ml 1104 ml Output Total 600 ml 300 ml Balance -380 ml 180 ml 1104 ml Intake Oral 220 ml 480 ml IV Total 1104 ml Output Urine Total 600 ml 300 ml # Bowel Movements 0 0 Result Diagram: 03/19/17 0910 03/20/17 0707 Imaging Last Impressions Head CT 03/18/17 0000 Signed Impressions: Service Date/Time: Saturday, March 18, 2017 11:31 - CONCLUSION: 1. 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 2. Diffuse cerebral atrophy. 3. No acute infarct, acute hemorrhage, mass effect or extra-axial fluid collections. 4. Fluid is noted within the right mastoid air cells. Mejia Davidson MD Chest X-Ray 03/17/17 0000 Signed Impressions: Service Date/Time: Friday, March 17, 2017 09:43 - CONCLUSION: 1. Subsegmental atelectasis right base. There has been no significant change when compared to the prior exam. Gilberto Wisdom MD Venous Access Device Injection 03/14/17 0000 Signed Impressions: Service Date/Time: Tuesday, March 14, 2017 12:06 - CONCLUSION: 1. The port is in excellent position and flushes easily. 2. Contrast could not be withdrawn from the port though no definite fibrin sheath is evident around the catheter. The catheter was locked with 4 mg of TPA. Jose J Ibarra MD Brain MRI 03/05/17 0000 Signed Impressions: Service Date/Time: Sunday, March 05, 2017 11:28 - CONCLUSION: Moderate motion artifact. Negative for acute ischemic event. Atrophy with periventricular changes. Bennett Ibarra MD FACR Abdomen/Pelvis CT 03/04/17 1742 Signed Impressions: Service Date/Time: Saturday, March 04, 2017 18:28 - CONCLUSION: 1. Bilateral pleural effusions small to moderate in size. 2. No acute findings in the abdomen and pelvis. Corby Melendez MD Objective Remarks General: Elderly male in no acute distress. In soft restraints. Heart: Regular rate and rhythm. No murmur. Lungs: Bibasilar crackles are noted. Breathing is nonlabored. Abdomen: Soft, nontender, nondistended. Extremities: 1+ right lower extremity edema. Left below-knee amputation. Psych: Sleeping, lethargic. Does not answer questions. Procedures None Urinary Catheter: No Vascular Central Line Catheter: No A/P Problem List: (1) Catheter-associated urinary tract infection ICD Code: T83.511A - Infection and inflammatory reaction due to indwelling urethral catheter, initial encounter; N39.0 - Urinary tract infection, site not specified Status: Acute (2) Metabolic encephalopathy ICD Code: G93.41 - Metabolic encephalopathy Status: Acute Assessment and Plan 1. Acute metabolic encephalopathy: Likely secondary to hypoglycemia, hypoxia, sedating medications. Ativan has been discontinued. EEG shows encephalopathy. CT of the head is unremarkable. Appreciate psychiatry recommendations. 2. Hypoxia: Continue supplemental oxygen. Patient now on Ventimask. Appreciate pulmonology recommendations. Check VQ scan to evaluate for possible pulmonary embolus. Oxygen requirement is decreasing. 3. Possible healthcare acquired pneumonia: Continue antibiotics, oxygen. Tapering off steroids. 4. Pyuria: Possibly epididymitis. Switched from Rocephin to Bactrim. Caballero catheter in place. 5. Urinary retention: Caballero catheter in place. Reconsult urology to re-evaluate urethral meatus. 6. History of bladder cancer: Appreciate oncology, urology recommendations. 7. Insulin-dependent diabetes mellitus: Continue Levemir. Monitor Accu-Cheks and cover with sliding scale insulin. 8. Hypertension: Continue home medications. 9. Hyperlipidemia: Continue home medications. 10. Agitation: Appreciate psychiatry recommendations. Continue soft restraints. 11. Generalized weakness: Continue PT/OT. 12. GI bleed: Status post EGD/colonoscopy 03/16/16. Appreciate GI recommendations. Monitor H&H. 13. DVT prophylaxis: SCDs. Avoid chemical prophylaxis secondary to possible GI bleed. Nicholas Loredo MD Mar 20, 2017 10:51
--- NOTE | 2017-03-20 12:36 | HHI.PR ---
Subjective Patient symptoms today was called to evaluate urethral meatus, possible purulent drainage. Resting comfortably in bed. Nonverbal. Objective Vital Signs Vital Signs Date Time Temp Pulse Resp B/P (MAP) Pulse Ox O2 Delivery O2 Flow Rate FiO2 03/20/17 08:00 98.4 73 19 149/82 (104) 95 03/20/17 07:41 93 Nasal Cannula 5.00 03/20/17 06:24 97.3 61 19 178/77 (110) 96 03/20/17 01:59 97.2 73 18 147/63 (91) 94 03/19/17 20:59 97.5 70 18 150/63 (92) 99 03/19/17 19:25 Nasal Cannula 6.00 03/19/17 17:47 96 Venturi Mask 6.00 40 03/19/17 16:00 97.9 69 18 149/68 (95) 96 Result Diagram: 03/19/17 0910 03/20/17 0707 Objective Remarks NAD. urethral meatus with significant ventral erosion from chronic chew. White-amy material seen around catheter, likely sloughed tissue from chronic catheter, Medications and IVs Current Medications Medications (Trade) Dose Ordered Sig/Myrna Route Start Time Stop Time Status Last Admin (NS Flush) 2 ml UNSCH PRN IV FLUSH 03/04/17 21:00 03/06/17 14:09 (NS Flush) 2 ml BID IV FLUSH 03/04/17 21:00 03/19/17 09:41 (Tylenol) 650 mg Q4H PRN PO 03/04/17 21:00 (Zofran Inj) 4 mg Q6H PRN IVP 03/04/17 21:00 (Narcan Inj) 0.4 mg UNSCH PRN IV PUSH 03/04/17 21:00 (Milk Of Magnesia Liq) 30 ml Q12H PRN PO 03/04/17 21:00 (Norvasc) 10 mg DAILY PO 03/05/17 09:00 03/20/17 09:06 (Lipitor) 20 mg DAILY PO 03/05/17 09:00 03/20/17 09:06 (Trusopt 2% Opth Soln) 1 drop BID RIGHT EYE 03/04/17 21:00 03/20/17 09:00 (Xalatan 0.005% Opth Soln) 1 drop HS RIGHT EYE 03/04/17 21:00 03/15/17 21:00 (Lopressor) 50 mg Q12HR PO 03/04/17 21:00 03/20/17 09:07 (Duoneb Neb) 1 ampule Q4HR NEB PRN NEB 03/06/17 01:15 03/17/17 09:13 (Lasix Inj) 20 mg BID@18 IV PUSH 03/07/17 09:00 03/20/17 10:05 (KCl) 10 meq DAILY PO 03/07/17 09:00 03/20/17 09:00 Miscellaneous Information Patient in critical care unit? Ass... Q361D .XX 03/07/17 17:00 (Levemir Inj) 30 units DAILY SQ 03/09/17 09:00 03/20/17 09:00 (D50w (Vial) Inj) 50 ml UNSCH PRN IV PUSH 03/09/17 00:30 03/18/17 21:08 (Glucagon Inj) 1 mg UNSCH PRN OTHER 03/09/17 00:30 (Cozaar) 25 mg DAILY PO 03/10/17 11:45 03/20/17 09:06 (Flomax) 0.4 mg DAILY PO 03/10/17 11:45 03/20/17 10:06 (Levemir Inj) 25 units HS SQ 03/11/17 21:00 03/20/17 00:06 Pharmacy Profile Note 0 ml @ 0 mls/hr UNSCH OTHER 03/11/17 09:45 (Protonix) 40 mg DAILY PO 03/11/17 10:30 03/20/17 09:07 (NovoLOG SUPPLEMENTAL SCALE) 1 ACHS SLIDING SCALE SQ 03/11/17 21:00 03/20/17 08:00 Vancomycin HCl 1250 mg/Sodium Chloride 262.5 ml @ 250 mls/hr Q36H IV 03/12/17 18:00 03/18/17 18:24 (Bactrim Ds 800-160 Mg) 1 tab Q12H PO 03/12/17 16:00 03/20/17 06:00 (Tums Chew) 500 mg BID PRN PO 03/13/17 19:00 03/13/17 22:57 (Haldol Inj) 2 mg Q6H PRN IM 03/15/17 15:30 03/15/17 16:26 (D50w (Vial) Inj) 50 ml UNSCH PRN IV PUSH 03/16/17 09:45 (Glucagon Inj) 1 mg UNSCH PRN OTHER 03/16/17 09:45 (SEROquel) 25 mg BID@09,12 PO 03/17/17 12:00 03/20/17 10:05 (Deltasone) 20 mg BID PO 03/21/17 09:00 Assessment and Plan Problem List: (1) Urinary retention ICD Code: R33.9 - Retention of urine, unspecified (2) Bladder cancer ICD Code: C67.9 - Malignant neoplasm of bladder, unspecified Status: Acute Assessment and Plan -Recommend conservative management. Would change chew catheter monthly. -May consider SP tube in the future -F/U with [facility]rologist at [facility]. Problem Qualifiers (1) Bladder cancer: Qualified Codes: C67.9 - Malignant neoplasm of bladder, unspecified Shady Chase MD Mar 20, 2017 12:36
[2017-03-20] MEDS: VANCOMYCIN INJ 1,250 MG in SODIUM CHLOR 0.9% 250 ML INJ 250 ML IV SCH (12:46)
--- NOTE | 2017-03-20 14:19 | RADRPT ---
EXAM DATE/TIME: 03/20/2017 13:47 [facility] COMPARISON: CHEST SINGLE AP, March 17, 2017, 9:43. INDICATIONS : Shortness of breath. MEDICAL HISTORY : Diabetes mellitus type II. Hypertension Stroke. Carcinoma, bladder SURGICAL HISTORY : Cholecystectomy. ENCOUNTER: Subsequent ACUITY: 1 week PAIN SCORE: 0/10 LOCATION: Bilateral chest FINDINGS: A single view of the chest demonstrates the lungs to be symmetrically aerated without evidence of mas s, infiltrate or effusion. Ypqhck-[id number]-Palm left chest. Mild compensated cardia megaly. Osseous struc tures are intact. CONCLUSION: Loculated cardiomegaly without failure or infiltrate Bennett Ibarra MD FACR on March 20, 2017 at 14:16 Board Certified Radiologist. This report was verified electronically.
--- NOTE | 2017-03-20 14:22 | RADRPT ---
EXAM DATE/TIME: 03/20/2017 11:15 [facility] COMPARISON: No previous studies available for comparison. INDICATIONS : Short of breath. DOSE: 8.1 mCi Tc99m MAA IV 1.1 mCi Tc99m DTPA aerosol MEDICAL HISTORY : Carcinoma, bladder. Carcinoma, prostate. Diabetes mellitus type 2. SURGICAL HISTORY : Cholecystectomy. Bladder surgery. ENCOUNTER: Initial ACUITY: 1 day PAIN SCALE: 1/10 LOCATION: Bilateral chest TECHNIQUE: Following five minutes of tidal breathing of DTPA aerosol, planar images of the lungs were performed in eight projections. The patient was then injected with MAA, and eight-view perfusion scan was perf ormed. FINDINGS: There is minimal central airway tracer deposition. As the single mismatched relation to fusion defect with the moderate sized perfusion defect in the ri ght upper lobe with normal chest x-ray. CONCLUSION: Intermediate to high probability of pulmonary embolism. Correlation suggested. Bennett Ibarra MD FACR on March 20, 2017 at 14:17 Board Certified Radiologist. This report was verified electronically.
[2017-03-20] MEDS ORDERED: HEPARIN-D5W 25,000 U/250 ML 250 ML IV PRN (14:45)
[2017-03-20 14:51] LABS: HEMATOCRIT 26.7 % (39.0-51.0); HEMOGLOBIN 8.6 GM/DL (13.0-17.0); MEAN CELL VOLUME 90.8 FL (80.0-100.0); MEAN CORPUSCULAR HEMOGLOBIN 29.1 PG (27.0-34.0); MEAN CORPUSCULAR HGB CONC 32.1 % (32.0-36.0); MEAN PLATELET VOLUME 9.2 FL (7.0-11.0); PLATELET COUNT 248 TH/MM3 (150-450); RED BLOOD COUNT 2.94 MIL/MM3 (4.50-5.90); RED CELL DISTRIBUTION WIDTH 17.3 % (11.6-17.2); WHITE BLOOD COUNT 13.5 TH/MM3 (4.0-11.0)
[2017-03-20 16:30] LABS: HEMATOCRIT 25.1 % (39.0-51.0); HEMOGLOBIN 8.7 GM/DL (13.0-17.0); MEAN CELL VOLUME 89.1 FL (80.0-100.0); MEAN CORPUSCULAR HEMOGLOBIN 30.9 PG (27.0-34.0); MEAN CORPUSCULAR HGB CONC 34.7 % (32.0-36.0); MEAN PLATELET VOLUME 9.4 FL (7.0-11.0); PLATELET COUNT 244 TH/MM3 (150-450); RED BLOOD COUNT 2.82 MIL/MM3 (4.50-5.90); WHITE BLOOD COUNT 10.7 TH/MM3 (4.0-11.0)
[2017-03-20 16:32] LABS: BANDS 2 % (0-6); LYMPHOCYTES 3 % (9-44); MONOCYTES 3 % (0-8); NEUTROPHIL # MANUAL DIFF 12.7 TH/MM3 (1.8-7.7); POLYS (SEG NEUTROPHILS) 92 % (16-70)
[2017-03-20 16:33] LABS: BURR CELLS 2+ (NORMAL); OVALOCYTES 1+ (NORMAL)
[2017-03-20 16:36] LABS: INTERNATIONAL NORMALIZED RATIO 1.1 RATIO; PROTHROMBIN TIME - PATIENT 10.7 SEC (9.8-11.6)
--- NOTE | 2017-03-20 19:19 | HHI.PR ---
Subjective Remarks better Fio2 weaned down V/Q scan done Objective Vital Signs Date Time Temp Pulse Resp B/P (MAP) Pulse Ox O2 Delivery O2 Flow Rate FiO2 03/20/17 16:00 98.1 73 19 145/74 (97) 94 03/20/17 12:00 98.1 76 19 118/68 (85) 98 03/20/17 08:00 98.4 73 19 149/82 (104) 95 03/20/17 07:41 93 Nasal Cannula 5.00 03/20/17 06:24 97.3 61 19 178/77 (110) 96 03/20/17 01:59 97.2 73 18 147/63 (91) 94 03/19/17 20:59 97.5 70 18 150/63 (92) 99 03/19/17 19:25 Nasal Cannula 6.00 I/O 03/19/17 03/19/17 03/19/17 03/20/17 03/20/17 03/20/17 07:00 15:00 23:00 07:00 15:00 23:00 Intake Total 220 ml 480 ml 1104 ml 580 ml Output Total 600 ml 300 ml 1050 ml Balance -380 ml 180 ml 1104 ml -470 ml Intake Oral 220 ml 480 ml 580 ml IV Total 1104 ml Output Urine Total 600 ml 300 ml 1050 ml # Bowel Movements 0 0 0 Result Diagram: 03/20/17 1604 03/20/17 0707 Imaging V/Q scan interm. to high probability for PE Objective Remarks PHYSICAL EXAMINATION: . NECK: Trachea is midline. LUNGS: Bilateral rhonchi and mild basilar crackles on the left side. HEART: Normal S1 and S2. ABDOMEN: Soft. No signs to suggest any tenderness. EXTREMITIES: He did not have any significant edema on the left. He does have a left below-knee amputation. Assessment and Plan Assessment and Plan ASSESSMENT AND PLAN: 1. Hypoxemia. likley due to PE....I need to order CTa to confirm dx before we commit him to terminal supervisor AC. better cont weaning off Fio2, will be on nasal canula I would like him to continue on the current antibiotics, try to do pulmonary toileting as much as possible,. I will cont to follow Discussed with Hem/Onc Code Status: Shock Quirino Lawrence MD Mar 20, 2017 19:19
--- NOTE | 2017-03-20 22:58 | PD.ONC.PN ---
Subjective Subjective Remarks Reconsulted for PE Pt is pleasantly confused and restraint. Son at bedside who is concerned with his health. Per son he has some hematuria but no melena Objective Data Date Time Temp Pulse Resp B/P (MAP) Pulse Ox O2 Delivery O2 Flow Rate FiO2 03/20/17 16:00 98.1 73 19 145/74 (97) 94 03/20/17 12:00 98.1 76 19 118/68 (85) 98 03/20/17 08:00 98.4 73 19 149/82 (104) 95 03/20/17 07:41 93 Nasal Cannula 5.00 03/20/17 06:24 97.3 61 19 178/77 (110) 96 03/20/17 01:59 97.2 73 18 147/63 (91) 94 03/20/17 03/20/17 03/20/17 07:00 15:00 23:00 Intake Total 580 ml Output Total 1050 ml Balance -470 ml Result Diagram: 03/20/17 1604 03/20/17 0707 Laboratory Results Laboratory Tests Test 03/20/17 07:07 03/20/17 14:10 03/20/17 16:04 Blood Urea Nitrogen 34 MG/DL Creatinine 1.28 MG/DL Random Glucose 148 MG/DL Calcium Level 7.6 MG/DL Sodium Level 144 MEQ/L Potassium Level 4.6 MEQ/L Chloride Level 112 MEQ/L Carbon Dioxide Level 25.4 MEQ/L Anion Gap 7 MEQ/L Estimat Glomerular Filtration Rate 55 ML/MIN White Blood Count 13.5 TH/MM3 10.7 TH/MM3 Red Blood Count 2.94 MIL/MM3 2.82 MIL/MM3 Hemoglobin 8.6 GM/DL 8.7 GM/DL Hematocrit 26.7 % 25.1 % Mean Corpuscular Volume 90.8 FL 89.1 FL Mean Corpuscular Hemoglobin 29.1 PG 30.9 PG Mean Corpuscular Hemoglobin Concent 32.1 % 34.7 % Red Cell Distribution Width 17.3 % 17.0 % Platelet Count 248 TH/MM3 244 TH/MM3 Mean Platelet Volume 9.2 FL 9.4 FL CBC Comment AUTO DIFF Differential Total Cells Counted 100 Neutrophils % (Manual) 92 % Band Neutrophils % 2 % Lymphocytes % 3 % Monocytes % 3 % Neutrophils # (Manual) 12.7 TH/MM3 Differential Comment FINAL DIFF MANUAL Platelet Estimate NORMAL Platelet Morphology Comment NORMAL Ovalocytes 1+ [place] Cells 2+ Prothrombin Time 10.7 SEC Prothromb Time International Ratio 1.1 RATIO Activated Partial Thromboplast Time 21.6 SEC Imaging Studies Last 24 hours Impressions Lung Scan-VQ Nuclear Medicine 03/20/17 0000 Signed Impressions: Service Date/Time: Monday, March 20, 2017 11:15 - CONCLUSION: Intermediate to high probability of pulmonary embolism. Correlation suggested. Bennett Ibarra MD FACR Chest X-Ray 03/20/17 0000 Signed Impressions: Service Date/Time: Monday, March 20, 2017 13:47 - CONCLUSION: Loculated cardiomegaly without failure or infiltrate Bennett Ibarra MD FACR Administered Medications Medications (Trade) Dose Ordered Sig/Myrna Route PRN Reason Start Time Stop Time Status Last Admin Dose Admin Sodium Chloride (NS Flush) 2 ml UNSCH PRN IV FLUSH FLUSH AFTER USING IV ACCESS 03/04/17 21:00 03/06/17 14:09 Sodium Chloride (NS Flush) 2 ml BID IV FLUSH 03/04/17 21:00 03/20/17 22:41 Amlodipine Besylate (Norvasc) 10 mg DAILY PO 03/05/17 09:00 03/20/17 09:06 Atorvastatin Calcium (Lipitor) 20 mg DAILY PO 03/05/17 09:00 03/20/17 09:06 Dorzolamide HCl (Trusopt 2% Opt Soln) 1 drop BID RIGHT EYE 03/04/17 21:00 03/20/17 09:00 Latanoprost (Xalatan 0.005% Opth Soln) 1 drop HS RIGHT EYE 03/04/17 21:00 03/15/17 21:00 Metoprolol Tartrate (Lopressor) 50 mg Q12HR PO 03/04/17 21:00 03/20/17 22:40 Albuterol/ Ipratropium (Duoneb Neb) 1 ampule Q4HR NEB PRN NEB SOB/WHEEZING 03/06/17 01:15 03/17/17 09:13 Furosemide (Lasix Inj) 20 mg BID@ IV PUSH 03/07/17 09:00 03/20/17 17:40 Potassium Chloride (KCl) 10 meq DAILY PO 03/07/17 09:00 03/20/17 09:00 Insulin Detemir (Levemir Inj) 30 units DAILY SQ 03/09/17 09:00 03/20/17 09:00 Dextrose (D50w (Vial) Inj) 50 ml UNSCH PRN IV PUSH HYPOGLYCEMIA-SEE COMMENTS 03/09/17 00:30 03/18/17 21:08 Losartan Potassium (Cozaar) 25 mg DAILY PO 03/10/17 11:45 03/20/17 09:06 Tamsulosin HCl (Flomax) 0.4 mg DAILY PO 03/10/17 11:45 03/20/17 10:06 Insulin Detemir (Levemir Inj) 25 units HS SQ 03/11/17 21:00 03/20/17 22:39 Pantoprazole Sodium (Protonix) 40 mg DAILY PO 03/11/17 10:30 03/20/17 09:07 Insulin Aspart (NovoLOG SUPPLEMENTAL SCALE) 1 ACHS SLIDING SCALE SQ 03/11/17 21:00 03/20/17 22:39 Vancomycin HCl 1250 mg/Sodium Chloride 262.5 ml @ 250 mls/hr Q36H IV 03/12/17 18:00 03/20/17 12:46 Trimethoprim/ Sulfamethoxazole (Bactrim Ds 800-160 Mg) 1 tab Q12H PO 03/12/17 16:00 03/20/17 17:27 Calcium Carbonate (Tums Chew) 500 mg BID PRN PO HEARTBURN 03/13/17 19:00 03/13/17 22:57 Haloperidol Lactate (Haldol Inj) 2 mg Q6H PRN IM AGITATION AND/OR HALLUCINATION 03/15/17 15:30 03/15/17 16:26 Quetiapine Fumarate (SEROquel) 25 mg BID@09,12 PO 03/17/17 12:00 03/20/17 12:45 Heparin Sodium/ Dextrose 250 ml @ 16 mls/hr TITRATE PRN IV Coagulation Management 03/20/17 14:45 03/20/17 18:24 Objective Remarks GENERAL: Well-nourished, well-developed patient. SKIN: Warm and dry. HEAD: Normocephalic. EYES: No scleral icterus. No injection or drainage. NECK: Supple, trachea midline. LYMPHATIC: No adenopathy. CARDIOVASCULAR: Regular rate and rhythm without murmurs. RESPIRATORY: Breath sounds equal bilaterally. No accessory muscle use. GASTROINTESTINAL: Abdomen soft, non-tender, nondistended. EXTREMITIES: left BKA NEUROLOGICAL: No obvious focal deficit. Awake, alert, and oriented x 1 Assessment/Plan Assessment 1: Urinary bladder cancer- s/p neoadjuvant chemo. Pt is not stable to undergo surgery ( Radical cystectomy) . Recommend repeat cystoscopy for hematuria and TURBT 2: recurrent debilitated encephalopathy poorly explained. ? dementia. FU by neuro and psych 3. Possible PE ( V/Q scan intermed to high probability) D/W Dr Melinda waddell. He will order CTA chest to confirm PE. Pt is now full dose heparin. If PE is confirmed then continue Heparin . He had recent GI W/U which does not show any evidence of bleeding. Path is benign. Monitor cbc . If H/H drop significantly then will stop heparin and consider IVC filter. D/W Pt son at bedside Denny Dumont MD Mar 20, 2017 22:58
[2017-03-21] VITALS (9 sets, daily range): BP systolic 117–178; BP diastolic 56–116; PULSE 54–100; RESP 17–20; TEMP 97–98.5; O2SAT 92–98
[2017-03-21] MEDS: SULFAMETHOXAZOLE-TRIMETHOPRIM DS 800-160 MG TAB PO SCH ×2 (04:46→14:46)
[2017-03-21 07:24] LABS: AUTOMATED NEUTROPHIL # 7.5 TH/MM3 (1.8-7.7); BASOPHIL % 0.2 % (0.0-2.0); HEMATOCRIT 25.5 % (39.0-51.0); HEMOGLOBIN 8.7 GM/DL (13.0-17.0); LYMPH % 8.9 % (9.0-44.0); LYMPHOCYTE # 0.8 TH/MM3 (1.0-4.8); MEAN CELL VOLUME 87.5 FL (80.0-100.0); MEAN CORPUSCULAR HEMOGLOBIN 29.8 PG (27.0-34.0); MEAN PLATELET VOLUME 8.9 FL (7.0-11.0); MONO % 7.2 % (0.0-8.0); MONOCYTE # 0.6 TH/MM3 (0-0.9); NEUT % 83.7 % (16.0-70.0); PLATELET COUNT 225 TH/MM3 (150-450); RED BLOOD COUNT 2.92 MIL/MM3 (4.50-5.90); RED CELL DISTRIBUTION WIDTH 16.6 % (11.6-17.2); WHITE BLOOD COUNT 8.9 TH/MM3 (4.0-11.0)
[2017-03-21 07:42] LABS: BICARBONATE 25.1 MEQ/L (21.0-32.0); CALCIUM 7.6 MG/DL (8.5-10.1); CREATININE 1.28 MG/DL (0.60-1.30)
[2017-03-21] MEDS: INSULIN ASPART SUPPLEMENTAL SCALE SQ SCH ×4 (08:00→21:32)
[2017-03-21] MEDS: DEXTROSE 50% IN WATER 50 ML VIAL(D50) IV PUSH PRN (08:17)
[2017-03-21] MEDS: SODIUM CHLORIDE 0.9% FLUSH 10 ML FLUSH IV FLUSH SCH ×2 (08:24→21:33)
[2017-03-21] MEDS: ATORVASTATIN 20 MG TAB PO SCH (08:25)
[2017-03-21] MEDS: POTASSIUM CHLORIDE 10 MEQ CAP PO SCH (08:26)
[2017-03-21] MEDS: PANTOPRAZOLE SOD 40 MG DELAYED RELEASE TAB PO SCH (08:26)
[2017-03-21] MEDS: QUEtiapine FUMARATE 25 MG TAB PO SCH ×2 (08:27→11:57)
[2017-03-21] MEDS: METOPROLOL TARTRATE 50 MG TAB PO SCH ×2 (08:27→21:33)
[2017-03-21] MEDS: predniSONE 20 MG TAB PO SCH ×2 (08:27→21:33)
[2017-03-21] MEDS: LOSARTAN 25 MG TAB PO SCH (08:28)
[2017-03-21] MEDS: INSULIN DETEMIR 100 UNITS/ML VIAL SQ SCH ×2 (08:29→21:32)
[2017-03-21] MEDS: DORZOLAMIDE 2% OPTH SOLN 200 DROP/10 ML BTLO RIGHT EYE SCH ×2 (08:29→21:00)
[2017-03-21] MEDS: FUROSEMIDE 20 MG/2 ML VIAL IV PUSH SCH ×2 (08:30→18:01)
[2017-03-21] MEDS: TAMSULOSIN HCL 0.4 MG CAP PO SCH (08:43)
--- NOTE | 2017-03-21 13:33 | HHI.PYPN ---
Subjective Remarks Patient was seen today for psychiatric reevaluation. Documentation reviewed, case discussed with nursing charge. On psychiatric evaluation patient was found confused, Disoriented, but Engageable in a Conversation. At the beginning he did not recognize me, but with redirection he could say that I am the psychiatrist. Patient reports feeling okay, denies depression, denies suicidal and homicidal ideation, he denies visual and auditory hallucinations. Patient is partially oriented, no prominent paranoia or perceptual disturbances noted. No prominent agitation or aggressive behavior present. Review of Systems Except as stated in HPI: all other systems reviewed are Neg Mental Status Examination Appearance: Appropriate Consciousness: Alert, Clouded Orientation: Person Motor Activity: Abnormal gait Speech: Incoherent Fund of Knowledge: Inadequate Attention and Concentration: Easily Distracted, Inadequate Memory: Impaired Mood: Irritable Affect: Irritable, Other (euphoric) Thought Process & Associations: Loose associations, Tangential Hallucination Type: Visual Suicidal Ideation: No Suicidal Plan: No Suicidal Intention: No Homicidal Ideation: No Homicidal Plan: No Homicidal Intention: No Insight: Fair Judgment: Impulsive Results Labs Test 03/20/17 14:10 03/20/17 16:04 03/20/17 22:45 03/21/17 06:32 White Blood Count 13.5 TH/MM3 10.7 TH/MM3 8.9 TH/MM3 Red Blood Count 2.94 MIL/MM3 2.82 MIL/MM3 2.92 MIL/MM3 Hemoglobin 8.6 GM/DL 8.7 GM/DL 8.7 GM/DL Hematocrit 26.7 % 25.1 % 25.5 % Mean Corpuscular Volume 90.8 FL 89.1 FL 87.5 FL Mean Corpuscular Hemoglobin 29.1 PG 30.9 PG 29.8 PG Mean Corpuscular Hemoglobin Concent 32.1 % 34.7 % 34.0 % Red Cell Distribution Width 17.3 % 17.0 % 16.6 % Platelet Count 248 TH/MM3 244 TH/MM3 225 TH/MM3 Mean Platelet Volume 9.2 FL 9.4 FL 8.9 FL CBC Comment AUTO DIFF DIFF FINAL Differential Total Cells Counted 100 Neutrophils % (Manual) 92 % Band Neutrophils % 2 % Lymphocytes % 3 % Monocytes % 3 % Neutrophils # (Manual) 12.7 TH/MM3 Differential Comment FINAL DIFF MANUAL Platelet Estimate NORMAL Platelet Morphology Comment NORMAL Ovalocytes 1+ [place] Cells 2+ Prothrombin Time 10.7 SEC Prothromb Time International Ratio 1.1 RATIO Activated Partial Thromboplast Time 21.6 SEC 22.8 SEC 226.4 SEC Neutrophils (%) (Auto) 83.7 % Lymphocytes (%) (Auto) 8.9 % Monocytes (%) (Auto) 7.2 % Eosinophils (%) (Auto) 0.0 % Basophils (%) (Auto) 0.2 % Neutrophils # (Auto) 7.5 TH/MM3 Lymphocytes # (Auto) 0.8 TH/MM3 Monocytes # (Auto) 0.6 TH/MM3 Eosinophils # (Auto) 0.0 TH/MM3 Basophils # (Auto) 0.0 TH/MM3 Blood Urea Nitrogen 34 MG/DL Creatinine 1.28 MG/DL Random Glucose 38 MG/DL Calcium Level 7.6 MG/DL Sodium Level 142 MEQ/L Potassium Level 4.1 MEQ/L Chloride Level 109 MEQ/L Carbon Dioxide Level 25.1 MEQ/L Anion Gap 8 MEQ/L Estimat Glomerular Filtration Rate 55 ML/MIN Test 03/21/17 11:09 Activated Partial Thromboplast Time 97.2 SEC Date/Time Source Procedure Growth Status 03/04/17 17:04 Blood Peripheral Aerobic Blood Culture - Final NO GROWTH IN 5 DAYS Complete 03/04/17 17:04 Blood Peripheral Anaerobic Blood Culture - Final NO GROWTH IN 5 DAYS Complete 03/11/17 03:00 Stool Stool Stool Occult Blood ([facility]) - Final HEMOCCULT POSITIVE Complete 03/04/17 20:50 Nasal Washing Influenza Types A,B Antigen ([facility]) - Final NEGATIVE FOR FLU A AND B ANTIGEN.... Complete 03/11/17 09:42 Urine Clean Catch Urine Culture - Final NO GROWTH IN 48 HOURS. Complete 03/05/17 03:35 Abscess Leg Gram Stain - Final Complete 03/05/17 03:35 Wound Culture - Final Staphylococcus Aureus Complete Vitals/IOs Vital Signs Date Time Temp Pulse Resp B/P (MAP) Pulse Ox O2 Delivery O2 Flow Rate FiO2 03/21/17 13:00 97.9 54 18 117/60 (79) 94 03/21/17 00:16 21 03/20/17 20:00 Nasal Cannula 5.00 Intake and Output 03/21/17 03/21/17 03/21/17 07:59 15:59 23:59 Output Total 950 ml 1000 ml Balance -950 ml -1000 ml Assessment & Plan Problem List: (1) Delirium due to another medical condition ICD Codes: F05 - Delirium due to known physiological condition Assessment & Plan: Patient continues to be confused, disoriented, with fluctuation of consciousness. Continue current psychotropic regimen. Assessment & Plan Estimated LOS: days Justification for Cont. Inpt. No psychiatric indication at this moment, we'll follow-up. Aung Cuevas MD Mar 21, 2017 13:33
--- NOTE | 2017-03-21 13:43 | HHI.PR ---
Subjective Remarks Follow up pulmonary embolus, encephalopathy. The patient denies chest pain, dyspnea. Has no complaints at this time. Objective Vitals Vital Signs Date Time Temp Pulse Resp B/P (MAP) Pulse Ox O2 Delivery O2 Flow Rate FiO2 03/21/17 13:00 97.9 54 18 117/60 (79) 94 03/21/17 09:34 97.5 59 17 128/59 (82) 97 03/21/17 09:26 97 03/21/17 06:05 98.0 56 20 174/60 (98) 97 03/21/17 00:16 95 21 03/21/17 00:00 98.5 74 20 178/116 (136) 98 03/20/17 20:00 98.6 75 20 140/81 (100) 98 03/20/17 20:00 Nasal Cannula 5.00 40 03/20/17 16:00 98.1 73 19 145/74 (97) 94 I/O 03/20/17 03/20/17 03/20/17 03/21/17 03/21/17 03/21/17 06:59 14:59 22:59 06:59 14:59 22:59 Intake Total 580 ml Output Total 1050 ml 950 ml 1000 ml Balance -470 ml -950 ml -1000 ml Intake Oral 580 ml Output Urine Total 1050 ml 950 ml 1000 ml # Bowel Movements 0 Result Diagram: 03/21/17 0632 03/21/17 0632 Imaging Last Impressions Lung Scan-VQ Nuclear Medicine 03/20/17 0000 Signed Impressions: Service Date/Time: Monday, March 20, 2017 11:15 - CONCLUSION: Intermediate to high probability of pulmonary embolism. Correlation suggested. Bennett Ibarra MD FACR Chest X-Ray 03/20/17 0000 Signed Impressions: Service Date/Time: Monday, March 20, 2017 13:47 - CONCLUSION: Loculated cardiomegaly without failure or infiltrate Bennett Ibarra MD FACR Head CT 03/18/17 0000 Signed Impressions: Service Date/Time: Saturday, March 18, 2017 11:31 - CONCLUSION: 1. 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 2. Diffuse cerebral atrophy. 3. No acute infarct, acute hemorrhage, mass effect or extra-axial fluid collections. 4. Fluid is noted within the right mastoid air cells. Mejia Davidson MD Venous Access Device Injection 03/14/17 0000 Signed Impressions: Service Date/Time: Tuesday, March 14, 2017 12:06 - CONCLUSION: 1. The port is in excellent position and flushes easily. 2. Contrast could not be withdrawn from the port though no definite fibrin sheath is evident around the catheter. The catheter was locked with 4 mg of TPA. Jose J Ibarra MD Brain MRI 03/05/17 0000 Signed Impressions: Service Date/Time: Sunday, March 05, 2017 11:28 - CONCLUSION: Moderate motion artifact. Negative for acute ischemic event. Atrophy with periventricular changes. Bennett Ibarra MD FACR Abdomen/Pelvis CT 03/04/17 1742 Signed Impressions: Service Date/Time: Saturday, March 04, 2017 18:28 - CONCLUSION: 1. Bilateral pleural effusions small to moderate in size. 2. No acute findings in the abdomen and pelvis. Corby Melendez MD Objective Remarks General: Elderly male in no acute distress. In soft restraints. Heart: Regular rate and rhythm. No murmur. Lungs: Bibasilar crackles are noted. Breathing is nonlabored. Abdomen: Soft, nontender, nondistended. Extremities: 1+ right lower extremity edema. Left below-knee amputation. Psych: Awake. Does not answer questions verbally, but does nod in response. Procedures None Urinary Catheter: Yes Assessment to: Continue Caballero insert reason: Obstruction/Retention Vascular Central Line Catheter: No A/P Problem List: (1) Catheter-associated urinary tract infection ICD Code: T83.511A - Infection and inflammatory reaction due to indwelling urethral catheter, initial encounter; N39.0 - Urinary tract infection, site not specified Status: Acute (2) Metabolic encephalopathy ICD Code: G93.41 - Metabolic encephalopathy Status: Acute Assessment and Plan 1. Acute metabolic encephalopathy: Likely secondary to hypoglycemia, hypoxia, sedating medications. Ativan has been discontinued. EEG shows encephalopathy. CT of the head is unremarkable. Appreciate psychiatry recommendations. 2. Pulmonary embolus: VQ scan shows intermediate to high probability of pulmonary embolism. CT pulmonary angiogram ordered. On heparin drip. Appreciate pulmonology recommendations. If CT pulmonary angiogram is negative, will discontinue heparin drip. Discussed with Dr. Dumont. 3. Possible healthcare acquired pneumonia: Continue antibiotics, oxygen, steroids. 4. Pyuria: Possibly epididymitis. Switched from Rocephin to Bactrim. Caballero catheter in place. 5. Urinary retention: Caballero catheter in place. Appreciate urology recommendations. Change Caballero catheter monthly. 6. History of bladder cancer: Appreciate oncology, urology recommendations. 7. Insulin-dependent diabetes mellitus: Continue Levemir. Monitor Accu-Cheks and cover with sliding scale insulin. Patient was hypoglycemic this morning. Glucose improved with D50. 8. Hypertension: Continue home medications. 9. Hyperlipidemia: Continue home medications. 10. Agitation: Appreciate psychiatry recommendations. 11. Generalized weakness: Continue PT/OT. 12. GI bleed: Status post EGD/colonoscopy 03/16/16. Appreciate GI recommendations. Monitor H&H. No active bleeding noted. Monitor closely while on heparin drip. 13. DVT prophylaxis: SCDs. 14. Palliative care consult pending. Nicholas Loredo MD Mar 21, 2017 13:43
--- NOTE | 2017-03-21 14:01 | PD.ONC.PN ---
Subjective Subjective Remarks Afebrile overnight. Patient resting in room. reporting "no one tells me anything, why am I in the hospital?" discussed finding of emboli in lungs and need for additional testing. discussed conflicting needs of possible bleeding vs need for blood thinners. however patient has had negative GI workup. Objective Data Date Time Temp Pulse Resp B/P (MAP) Pulse Ox O2 Delivery O2 Flow Rate FiO2 03/21/17 13:00 97.9 54 18 117/60 (79) 94 03/21/17 09:34 97.5 59 17 128/59 (82) 97 03/21/17 09:26 97 03/21/17 06:05 98.0 56 20 174/60 (98) 97 03/21/17 00:16 95 21 03/21/17 00:00 98.5 74 20 178/116 (136) 98 03/20/17 20:00 98.6 75 20 140/81 (100) 98 03/20/17 20:00 Nasal Cannula 5.00 40 03/20/17 16:00 98.1 73 19 145/74 (97) 94 03/21/17 03/21/17 03/21/17 06:59 14:59 22:59 Output Total 950 ml 1000 ml Balance -950 ml -1000 ml Result Diagram: 03/21/17 0632 03/21/1732 Laboratory Results Laboratory Tests Test 03/20/17 14:10 03/20/17 16:04 03/20/17 22:45 03/21/17 06:32 White Blood Count 13.5 TH/MM3 10.7 TH/MM3 8.9 TH/MM3 Red Blood Count 2.94 MIL/MM3 2.82 MIL/MM3 2.92 MIL/MM3 Hemoglobin 8.6 GM/DL 8.7 GM/DL 8.7 GM/DL Hematocrit 26.7 % 25.1 % 25.5 % Mean Corpuscular Volume 90.8 FL 89.1 FL 87.5 FL Mean Corpuscular Hemoglobin 29.1 PG 30.9 PG 29.8 PG Mean Corpuscular Hemoglobin Concent 32.1 % 34.7 % 34.0 % Red Cell Distribution Width 17.3 % 17.0 % 16.6 % Platelet Count 248 TH/MM3 244 TH/MM3 225 TH/MM3 Mean Platelet Volume 9.2 FL 9.4 FL 8.9 FL CBC Comment AUTO DIFF DIFF FINAL Differential Total Cells Counted 100 Neutrophils % (Manual) 92 % Band Neutrophils % 2 % Lymphocytes % 3 % Monocytes % 3 % Neutrophils # (Manual) 12.7 TH/MM3 Differential Comment FINAL DIFF MANUAL Platelet Estimate NORMAL Platelet Morphology Comment NORMAL Ovalocytes 1+ [place] Cells 2+ Prothrombin Time 10.7 SEC Prothromb Time International Ratio 1.1 RATIO Activated Partial Thromboplast Time 21.6 SEC 22.8 SEC 226.4 SEC Neutrophils (%) (Auto) 83.7 % Lymphocytes (%) (Auto) 8.9 % Monocytes (%) (Auto) 7.2 % Eosinophils (%) (Auto) 0.0 % Basophils (%) (Auto) 0.2 % Neutrophils # (Auto) 7.5 TH/MM3 Lymphocytes # (Auto) 0.8 TH/MM3 Monocytes # (Auto) 0.6 TH/MM3 Eosinophils # (Auto) 0.0 TH/MM3 Basophils # (Auto) 0.0 TH/MM3 Blood Urea Nitrogen 34 MG/DL Creatinine 1.28 MG/DL Random Glucose 38 MG/DL Calcium Level 7.6 MG/DL Sodium Level 142 MEQ/L Potassium Level 4.1 MEQ/L Chloride Level 109 MEQ/L Carbon Dioxide Level 25.1 MEQ/L Anion Gap 8 MEQ/L Estimat Glomerular Filtration Rate 55 ML/MIN Test 03/21/17 11:09 Activated Partial Thromboplast Time 97.2 SEC Administered Medications Medications (Trade) Dose Ordered Sig/Myrna Route PRN Reason Start Time Stop Time Status Last Admin Dose Admin Sodium Chloride (NS Flush) 2 ml UNSCH PRN IV FLUSH FLUSH AFTER USING IV ACCESS 03/04/17 21:00 03/06/17 14:09 Sodium Chloride (NS Flush) 2 ml BID IV FLUSH 03/04/17 21:00 03/21/17 08:24 Amlodipine Besylate (Norvasc) 10 mg DAILY PO 03/05/17 09:00 03/21/17 08:26 Atorvastatin Calcium (Lipitor) 20 mg DAILY PO 03/05/17 09:00 03/21/17 08:25 Dorzolamide HCl (Trusopt 2% Opth Soln) 1 drop BID RIGHT EYE 03/04/17 21:00 03/21/17 08:29 Latanoprost (Xalatan 0.005% Opth Soln) 1 drop HS RIGHT EYE 12/23/17 21:00 03/15/17 21:00 Metoprolol Tartrate (Lopressor) 50 mg Q12HR PO 03/04/17 21:00 03/21/17 08:27 Albuterol/ Ipratropium (Duoneb Neb) 1 ampule Q4HR NEB PRN NEB SOB/WHEEZING 03/06/17 01:15 03/17/17 09:13 Furosemide (Lasix Inj) 20 mg BID@ IV PUSH 03/07/17 09:00 03/21/17 08:30 Potassium Chloride (KCl) 10 meq DAILY PO 03/07/17 09:00 03/21/17 08:26 Insulin Detemir (Levemir Inj) 30 units DAILY SQ 03/09/17 09:00 03/20/17 09:00 Losartan Potassium (Cozaar) 25 mg DAILY PO 03/10/17 11:45 03/21/17 08:28 Tamsulosin HCl (Flomax) 0.4 mg DAILY PO 03/10/17 11:45 03/21/17 08:43 Insulin Detemir (Levemir Inj) 25 units HS SQ 03/11/17 21:00 03/20/17 22:39 Pantoprazole Sodium (Protonix) 40 mg DAILY PO 03/11/17 10:30 03/21/17 08:26 Insulin Aspart (NovoLOG SUPPLEMENTAL SCALE) 1 ACHS SLIDING SCALE SQ 03/11/17 21:00 03/20/17 22:39 Vancomycin HCl 1250 mg/Sodium Chloride 262.5 ml @ 250 mls/hr Q36H IV 03/12/17 18:00 03/20/17 12:46 Trimethoprim/ Sulfamethoxazole (Bactrim Ds 800-160 Mg) 1 tab Q12H PO 03/12/17 16:00 03/21/17 04:46 Calcium Carbonate (Tums Chew) 500 mg BID PRN PO HEARTBURN 03/13/17 19:00 03/13/17 22:57 Haloperidol Lactate (Haldol Inj) 2 mg Q6H PRN IM AGITATION AND/OR HALLUCINATION 03/15/17 15:30 03/15/17 16:26 Quetiapine Fumarate (SEROquel) 25 mg BID@,12 PO 03/17/17 12:00 03/21/17 11:57 Prednisone (Deltasone) 20 mg BID PO 03/21/17 09:00 03/21/17 08:27 Heparin Sodium/ Dextrose 250 ml @ 16 mls/hr TITRATE PRN IV Coagulation Management 03/20/17 14:45 03/20/17 18:24 Objective Remarks GENERAL: Elderly male upright in bed, slightly slumped over. He appears comfortable and in na. SKIN: Warm and dry. HEAD: Normocephalic. EYES: No injection or drainage. NECK: Supple, trachea midline. CARDIOVASCULAR: Regular rate and rhythm RESPIRATORY: anterior fraga with occasional rhonchi. GASTROINTESTINAL: Abdomen soft, non-tender, nondistended. EXTREMITIES: No cyanosis MUSCULOSKELETAL: Adequate muscle tone. NEUROLOGICAL: awake and alert, normal speech. Assessment/Plan Problem List: (1) Pulmonary emboli ICD Codes: I26.99 - Other pulmonary embolism without acute cor pulmonale Plan: 03/21: continue heparin for now. if PE confirmed on CTA will continue heparin. However, if hgb drops significantly will stop heparin and place IVC filter. --V/Q scan--> intermediate to high probability) --CTA chest to confirm PE is pending. --recent GI workup showed no evidence of bleeding. (2) Bladder cancer ICD Codes: C67.9 - Malignant neoplasm of bladder, unspecified Status: Acute Plan: --s/p neoadjuvant chemo. --will need radical cystectomy but unfortunately is not stable enough at present. --needs repeat cystoscopy and TURBT by urology (3) Metabolic encephalopathy ICD Codes: G93.41 - Metabolic encephalopathy Status: Acute Plan: --unclear etiology --psych following. Attending Statement The exam, history, and the medical decision-making described in the above note were completed with the assistance of the mid-level provider. I reviewed and agree with the findings presented. I attest that I had a [id number] encounter with the patient on the same day, and personally performed and documented my assessment and findings in the medical record. Pt is still confused more awake than yesterday. urine = no jamal blood in the chew bag CTA chest = Bilateral PE. Continue heparin. If H/H drop significantly than will stop AC and place IVC filter. d/w Dr Hernández Problem Qualifiers (1) Bladder cancer: Qualified Codes: C67.9 - Malignant neoplasm of bladder, unspecified Suha Logan Mar 21, 2017 14:01 Denny Dumont MD Mar 21, 2017 17:51
[2017-03-21] MEDS ORDERED: IOHEXOL 350 MG/ML 10 ML VIAL (for RAD DIAG) IVCONTRAST ONE (14:20)
--- NOTE | 2017-03-21 14:44 | RADRPT ---
EXAM DATE/TIME: 03/21/2017 14:02 [facility] COMPARISON: LUNG VENTILATION & PERFUSION SCAN, March 20, 2017, 11:15. CHEST SINGLE AP, March 20, 2017, 13:47 . INDICATIONS : Patient with hypoxemia and shortness of breath. Abnormal VQ scan demonstrating intermediate to high p robability of pulmonary embolism.. IV CONTRAST: 54 cc Omnipaque 350 (iohexol) IV RADIATION DOSE: 10.88 CTDIvol (mGy) MEDICAL HISTORY : Cardiovascular disease. Hypertension. Carcinoma, bladder.Prosate ca diabetes SURGICAL HISTORY : Cholecystectomy. Iliac stent,thyroid ENCOUNTER: Initial ACUITY: 1 day PAIN SCALE: Non-responsive LOCATION: chest TECHNIQUE: Volumetric scanning of the chest was performed using a pulmonary embolism protocol MIP images were re constructed. Using automated exposure control and adjustment of the mA and/or kV according to patien t size, radiation dose was kept as low as reasonably achievable to obtain optimal diagnostic quality images. DICOM format image data is available electronically for review and comparison. Follow-up recommendations for detected pulmonary nodules are based at a minimum on nodule size and pa tient risk factors according to Fleischner Society Guidelines. FINDINGS: PULMONARY ARTERIES: The main pulmonary artery and right and left main branch vessels are intact. Bilateral pulmonary embo li are noted in the secondary pulmonary arteries involving both the upper and lower lobes. LUNGS: There is no pneumothorax . There is consolidation in the right posterior lung base. No concerning pu lmonary nodule is visualized. PLEURAE: There are small bilateral pleural effusions right greater than left. MEDIASTINUM: There is good visualization of the great vessels of the middle mediastinum. No evidence of mediastin al or hilar adenopathy/mass. MUSCULOSKELETAL: Within normal limits for patient age. MISCELLANEOUS: The visualized upper abdominal organs demonstrate no acute abnormality. The patient is status post ch olecystectomy. CONCLUSION: 1. Bilateral pulmonary emboli. 2. Small bilateral pleural effusions right greater than left with consolidation in the right posterio r lung base. Clemente Alcala MD on March 21, 2017 at 14:37 Board Certified Radiologist. This report was verified electronically.
[2017-03-21] MEDS: VANCOMYCIN INJ 1,250 MG in SODIUM CHLOR 0.9% 250 ML INJ 250 ML IV SCH (17:58)
--- NOTE | 2017-03-21 19:37 | HHI.PR ---
Subjective Remarks better Fio2 weaned down CTA done and showed PE Objective Vital Signs Date Time Temp Pulse Resp B/P (MAP) Pulse Ox O2 Delivery O2 Flow Rate FiO2 03/21/17 16:00 97.5 60 18 126/60 (82) 92 03/21/17 13:00 97.9 54 18 117/60 (79) 94 03/21/17 09:34 97.5 59 17 128/59 (82) 97 03/21/17 09:26 97 03/21/17 06:05 98.0 56 20 174/60 (98) 97 03/21/17 00:16 95 21 03/21/17 00:00 98.5 74 20 178/116 (136) 98 03/20/17 20:00 98.6 75 20 140/81 (100) 98 03/20/17 20:00 Nasal Cannula 5.00 40 I/O 03/20/17 03/20/17 03/20/17 03/21/17 03/21/17 03/21/17 07:00 15:00 23:00 07:00 15:00 23:00 Intake Total 580 ml Output Total 1050 ml 950 ml 1000 ml Balance -470 ml -950 ml -1000 ml Intake Oral 580 ml Output Urine Total 1050 ml 950 ml 1000 ml # Bowel Movements 0 Result Diagram: 03/21/17 0632 03/21/17 0632 Objective Remarks PHYSICAL EXAMINATION: . NECK: Trachea is midline. LUNGS: Bilateral rhonchi and mild basilar crackles on the left side. HEART: Normal S1 and S2. ABDOMEN: Soft. No signs to suggest any tenderness. EXTREMITIES: He did not have any significant edema on the left. He does have a left below-knee amputation. Assessment and Plan Assessment and Plan ASSESSMENT AND PLAN: 1. Hypoxemia. due to PE... I recommend switch to one of the Oral Anticoagulants, However, I will defer this to his Hem/ONC better cont weaning off Fio2, will be on nasal canula I would like him to continue on the current antibiotics, try to do pulmonary toileting as much as possible,. I will cont to follow PRN No new recs at this point Discussed with Hem/Onc Quirino Lawrence MD Mar 21, 2017 19:37
[2017-03-21] MEDS: LATANOPROST 0.005% OPHT SOLN 2.5 ML BTL RIGHT EYE SCH (21:00)
[2017-03-22] VITALS (10 sets, daily range): BP systolic 106–187; BP diastolic 66–97; PULSE 55–86; RESP 14–20; TEMP 97–98.7; O2SAT 93–97
[2017-03-22 03:42] LABS: AUTOMATED NEUTROPHIL # 7.8 TH/MM3 (1.8-7.7); BASOPHIL % 0.2 % (0.0-2.0); HEMATOCRIT 25.7 % (39.0-51.0); HEMOGLOBIN 8.7 GM/DL (13.0-17.0); LYMPH % 5.3 % (9.0-44.0); LYMPHOCYTE # 0.5 TH/MM3 (1.0-4.8); MEAN CORPUSCULAR HEMOGLOBIN 29.4 PG (27.0-34.0); MEAN CORPUSCULAR HGB CONC 33.9 % (32.0-36.0); MEAN PLATELET VOLUME 8.6 FL (7.0-11.0); MONO % 5.8 % (0.0-8.0); MONOCYTE # 0.5 TH/MM3 (0-0.9); NEUT % 88.7 % (16.0-70.0); PLATELET COUNT 210 TH/MM3 (150-450); RED BLOOD COUNT 2.96 MIL/MM3 (4.50-5.90); RED CELL DISTRIBUTION WIDTH 16.9 % (11.6-17.2); WHITE BLOOD COUNT 8.8 TH/MM3 (4.0-11.0)
[2017-03-22] MEDS: SULFAMETHOXAZOLE-TRIMETHOPRIM DS 800-160 MG TAB PO SCH ×2 (04:00→19:32)
[2017-03-22 04:12] LABS: BICARBONATE 25.8 MEQ/L (21.0-32.0); CALCIUM 7.4 MG/DL (8.5-10.1); CREATININE 1.31 MG/DL (0.60-1.30)
[2017-03-22 04:46] LABS: CALCIUM-PROTEIN CORRECTED 9.1 MG/DL (8.5-10.1); TOTAL PROTEIN 4.2 GM/DL (6.4-8.2)
[2017-03-22] MEDS: INSULIN ASPART SUPPLEMENTAL SCALE SQ SCH ×4 (08:00→21:00)
[2017-03-22] MEDS: POTASSIUM CHLORIDE 10 MEQ CAP PO SCH (09:00)
[2017-03-22] MEDS: INSULIN DETEMIR 100 UNITS/ML VIAL SQ SCH ×2 (09:00→22:56)
[2017-03-22] MEDS: predniSONE 20 MG TAB PO SCH ×2 (09:00→22:36)
[2017-03-22] MEDS: QUEtiapine FUMARATE 25 MG TAB PO SCH ×2 (09:00→12:46)
[2017-03-22] MEDS: PANTOPRAZOLE SOD 40 MG DELAYED RELEASE TAB PO SCH (09:00)
[2017-03-22] MEDS: METOPROLOL TARTRATE 50 MG TAB PO SCH ×2 (09:00→22:38)
[2017-03-22] MEDS: ATORVASTATIN 20 MG TAB PO SCH (09:09)
[2017-03-22] MEDS: LOSARTAN 25 MG TAB PO SCH (09:11)
[2017-03-22] MEDS: TAMSULOSIN HCL 0.4 MG CAP PO SCH (09:12)
[2017-03-22] MEDS: DORZOLAMIDE 2% OPTH SOLN 200 DROP/10 ML BTLO RIGHT EYE SCH ×2 (09:14→22:42)
[2017-03-22] MEDS: FUROSEMIDE 20 MG/2 ML VIAL IV PUSH SCH ×2 (09:16→19:32)
[2017-03-22] MEDS: SODIUM CHLORIDE 0.9% FLUSH 10 ML FLUSH IV FLUSH SCH ×2 (09:20→22:40)
[2017-03-22] MEDS ORDERED: ACETAMINOPHEN 325 MG TAB PO PRN (10:45)
[2017-03-22] MEDS ORDERED: diphenhydrAMINE HCL 25 MG CAP PO PRN (10:45)
[2017-03-22] MEDS ORDERED: SODIUM CHLOR 0.9% 250 ML INJ 250 ML IV ONE (10:45)
[2017-03-22] MEDS: APIXABAN 5 MG TABLET PO SCH ×2 (11:08→22:37)
--- NOTE | 2017-03-22 11:46 | PD.ONC.PN ---
Subjective Subjective Remarks Afebrile overnight. Patient resting in room. Remains confused. When asked if he knows where he is, he states, "I am here." He then tells me he is in [facility], but not able to elaborate beyond that. Does not remember why he is in the hospital. Objective Data Date Time Temp Pulse Resp B/P (MAP) Pulse Ox O2 Delivery O2 Flow Rate FiO2 03/22/17 08:42 97.5 59 18 155/97 (116) 97 03/22/17 08:00 96 2.00 03/22/17 04:00 98.2 85 20 139/86 (103) 93 03/22/17 00:00 97.0 82 20 106/75 (85) 94 03/21/17 20:54 97.0 67 20 134/56 (82) 96 03/21/17 19:00 Nasal Cannula 5.00 21 03/21/17 16:00 97.5 60 18 126/60 (82) 92 03/21/17 13:00 97.9 54 18 117/60 (79) 94 03/22/17 03/22/17 03/22/17 07:00 15:00 23:00 Output Total 900 ml 400 ml Balance -900 ml -400 ml Result Diagram: 03/22/17 0333 03/22/17 0333 Laboratory Results Laboratory Tests Test 03/21/17 16:04 03/22/17 00:34 03/22/17 03:33 03/22/17 06:46 Activated Partial Thromboplast Time 71.6 SEC 232.0 SEC 124.9 SEC 50.9 SEC White Blood Count 8.8 TH/MM3 Red Blood Count 2.96 MIL/MM3 Hemoglobin 8.7 GM/DL Hematocrit 25.7 % Mean Corpuscular Volume 87.0 FL Mean Corpuscular Hemoglobin 29.4 PG Mean Corpuscular Hemoglobin Concent 33.9 % Red Cell Distribution Width 16.9 % Platelet Count 210 TH/MM3 Mean Platelet Volume 8.6 FL Neutrophils (%) (Auto) 88.7 % Lymphocytes (%) (Auto) 5.3 % Monocytes (%) (Auto) 5.8 % Eosinophils (%) (Auto) 0.0 % Basophils (%) (Auto) 0.2 % Neutrophils # (Auto) 7.8 TH/MM3 Lymphocytes # (Auto) 0.5 TH/MM3 Monocytes # (Auto) 0.5 TH/MM3 Eosinophils # (Auto) 0.0 TH/MM3 Basophils # (Auto) 0.0 TH/MM3 CBC Comment DIFF FINAL Differential Comment Blood Urea Nitrogen 39 MG/DL Creatinine 1.31 MG/DL Random Glucose 134 MG/DL Total Protein 4.2 GM/DL Calcium Level 7.4 MG/DL Sodium Level 140 MEQ/L Potassium Level 4.5 MEQ/L Chloride Level 107 MEQ/L Carbon Dioxide Level 25.8 MEQ/L Anion Gap 7 MEQ/L Estimat Glomerular Filtration Rate 53 ML/MIN Protein Corrected Calcium 9.1 MG/DL Administered Medications Medications (Trade) Dose Ordered Sig/Myrna Route PRN Reason Start Time Stop Time Status Last Admin Dose Admin Sodium Chloride (NS Flush) 2 ml UNSCH PRN IV FLUSH FLUSH AFTER USING IV ACCESS 03/04/17 21:00 03/06/17 14:09 Sodium Chloride (NS Flush) 2 ml BID IV FLUSH 03/04/17 21:00 03/22/17 09:20 Amlodipine Besylate (Norvasc) 10 mg DAILY PO 03/05/17 09:00 03/22/17 09:09 Atorvastatin Calcium (Lipitor) 20 mg DAILY PO 03/05/17 09:00 03/22/17 09:09 Dorzolamide HCl (Trusopt 2% Opth Soln) 1 drop BID RIGHT EYE 03/04/17 21:00 03/22/17 09:14 Latanoprost (Xalatan 0.005% Opth Soln) 1 drop HS RIGHT EYE 03/04/17 21:00 03/15/17 21:00 Metoprolol Tartrate (Lopressor) 50 mg Q12HR PO 03/04/17 21:00 03/21/17 21:33 Albuterol/ Ipratropium (Duoneb Neb) 1 ampule Q4HR NEB PRN NEB SOB/WHEEZING 03/06/17 01:15 03/17/17 09:13 Furosemide (Lasix Inj) 20 mg BID@ IV PUSH 03/07/17 09:00 03/22/17 09:16 Potassium Chloride (KCl) 10 meq DAILY PO 03/07/17 09:00 03/21/17 08:26 Insulin Detemir (Levemir Inj) 30 units DAILY SQ 03/09/17 09:00 03/20/17 09:00 Losartan Potassium (Cozaar) 25 mg DAILY PO 03/10/17 11:45 03/22/17 09:11 Tamsulosin HCl (Flomax) 0.4 mg DAILY PO 03/10/17 11:45 03/22/17 09:12 Insulin Detemir (Levemir Inj) 25 units HS SQ 03/11/17 21:00 03/21/17 21:32 Pantoprazole Sodium (Protonix) 40 mg DAILY PO 03/11/17 10:30 03/21/17 08:26 Insulin Aspart (NovoLOG SUPPLEMENTAL SCALE) 1 ACHS SLIDING SCALE SQ 03/11/17 21:00 03/21/17 21:32 Vancomycin HCl 1250 mg/Sodium Chloride 262.5 ml @ 250 mls/hr Q36H IV 03/12/17 18:00 03/21/17 17:58 Trimethoprim/ Sulfamethoxazole (Bactrim Ds 800-160 Mg) 1 tab Q12H PO 03/12/17 16:00 03/22/17 04:00 Calcium Carbonate (Tums Chew) 500 mg BID PRN PO HEARTBURN 03/13/17 19:00 03/13/17 22:57 Quetiapine Fumarate (SEROquel) 25 mg BID@09,12 PO 03/17/17 12:00 03/21/17 11:57 Prednisone (Deltasone) 20 mg BID PO 03/21/17 09:00 03/21/17 21:33 Apixaban (Eliquis) 5 mg BID PO 03/22/17 09:30 03/22/17 11:08 Objective Remarks GENERAL: Elderly male lying in bed, disheveled. SKIN: Warm and dry. HEAD: Normocephalic. EYES: No injection or drainage. NECK: Supple, trachea midline. CARDIOVASCULAR: Regular rate and rhythm RESPIRATORY: scattered rhonchi, anterior fraga. On 2L O2 via NC GASTROINTESTINAL: Abdomen soft, non-tender, nondistended. EXTREMITIES: No cyanosis MUSCULOSKELETAL: Adequate muscle tone. NEUROLOGICAL: awake and alert, normal speech. Assessment/Plan Problem List: (1) Pulmonary emboli ICD Codes: I26.99 - Other pulmonary embolism without acute cor pulmonale Plan: 03/22: CTA confirms PE. will stop heparin and start Eliquis 5mg PO BID. will not give loading dose d/t concern for bleeding. will also give pRBC in case patient bleeds, will have larger amount of reserves. --V/Q scan--> intermediate to high probability) --CTA chest to confirm PE is pending. --recent GI workup showed no evidence of bleeding. (2) Bladder cancer ICD Codes: C67.9 - Malignant neoplasm of bladder, unspecified Status: Acute Plan: --s/p neoadjuvant chemo. --will need radical cystectomy but unfortunately is not stable enough at present. --needs repeat cystoscopy and TURBT by urology (3) Metabolic encephalopathy ICD Codes: G93.41 - Metabolic encephalopathy Status: Acute Plan: --unclear etiology --psych following. Attending Statement The exam, history, and the medical decision-making described in the above note were completed with the assistance of the mid-level provider. I reviewed and agree with the findings presented. I attest that I had a [id number] encounter with the patient on the same day, and personally performed and documented my assessment and findings in the medical record. still confused and restraint d/w RN. No melana or hematuria start low dose eliquis and stop heparin PRBC 2 units to have better reserve in case if he start bleeding with AC Problem Qualifiers (1) Bladder cancer: Qualified Codes: C67.9 - Malignant neoplasm of bladder, unspecified Suha Logan Mar 22, 2017 11:46 Denny Dumont MD Mar 22, 2017 12:53
--- NOTE | 2017-03-22 12:56 | PD.CONS ---
Consult Service Palliative Care Consult Requested By Dr. Loredo . Primary Care Physician Unknown Reason for Consultation a. To assist with evaluation and management of symptoms including: dyspnea, pain b. To assist medical decision maker(s) with: better understanding of current medical conditions; weighing benefits/burdens of medical treatment options; making medical treatment decisions. HPI History of Present Illness This 76-year-old man presented to the emergency department from his nursing facility [facility] for AMS on 03/04/17. Not known exact timing of onset possibly that afternoon or prior evening. Patient has had recent hospitalizations for similar issues. He has known history of bladder cancer for which he had been undergoing outpatient treatment for. * ED course: Lee cultures obtained. Patient hypothermic 94.5, initiated on warming blanket. Caballero catheter was replaced, noted to have area of ulceration to dorsal aspect of penis from chronic indwelling catheter. CXR= minimal right peripheral lung opacity that may represent atelectasis or minimal consolidation. Significant anemia hemoglobin 5.8, patient baseline 8-9. Hemoccult stool negative. Ordered for 2 units of RBCs. Lactic acid 1, troponin negative. UA reflective of UTI. CT brain= negative for acute process. CT abdomen= bilateral pleural effusions with no acute findings in the abdomen/pelvis. Admitted for further evaluation and management. Brain MRI pending. Started on vancomycin, Zosyn. Oncology consulted. * Oncology: Etiology of encephalopathy unclear. Consider neurology consultation. Consider urology consultation if he continues having hematuria. Suspects anemia is secondary to bleeding and bladder. Transfuse as needed. Ultimately patient had been planned outpatient for cystectomy he has been too ill to have this outpatient. He may not be able to undergo surgery ever if cognitive function improves. PSA pending. No evidence of bony metastasis per imaging. * Neurology: Patient recently underwent extensive testing per neurology during recent admission for altered mental status. MRI with no acute lesions,+ atrophy , white matter disease."multiple current medical reasons to explain his altered mental status. his mental status appears improved compared to what i have read in the chart. this may be 2/2 iv abx vs delirium infection/anemia/hypothermia/ SIRS. he may be developing mild cognitive impairment/dementia, however, this dx cannot be adequately made until all infections, metabolic derangements have been treated.further outpatient cognitive testing will be helpful" repeat EEG pending, follow peripherally. * 2-D echo: EF 6065. Mild aortic valve sclerosis, mild tricuspid regurg * Urology: Urine clearing, recommends continue Caballero catheter follow-up with urologist regarding cystectomy versus observation with palliative care. * EEG 03/08/17 = moderate slowing consistent with ongoing encephalopathic process without any epileptiform features. * GI consult: Patient planned for EGD, colonoscopy. Unable to complete prep for colonoscopy, plan for following day. EGD completed 03/16 = esophagitis noted multiple biopsies performed stomach mucosa is normal. Normal duodenal mucosa, + hiatal hernia. Colonoscopy= large nonbleeding ulcer in the rectum biopsies taken, diverticulosis in descending colon and sigmoid colon, no abnormalities of rectum.[Pathology benign] * Psychiatry consulted for agitation, delirium: At time of this evaluation patient is very agitated requiring 4. restraints. Feels patient consistent with delirium probably secondary to multiple acute medical conditions recommends avoiding benzodiazepines, narcotics, anticholinergics and utilize Haldol IM, monitoring QTc interval. Also started Seroquel twice daily. * 03/18 pulmonology consulted for hypoxemia and high oxygen requirements-some improvement at time of their evaluation on 6 L of O2. Process felt to be secondary to atelectasis questionable pneumonia. Continue current antibiotics, pulmonary toileting and wean O2 as O2 saturation tolerates. If no improvement consider ruling out PE via VQ scan. * 03/20 slight improvement in delirium less agitated though remains confused, but more cooperative and communicative. Patient underwent VQ scan which determined indeterminate to high probability of PE-->>hematology consulted, CTA chest pending. Hematology recommends if PE , continue heparin. If H&H drops then could stop heparin and consider IVC filter. This was discussed with patient's son at bedside. * CTA chest with bilateral pulmonary emboli, small bilateral pleural effusions right greater than left with consolidation right posterior lung base. started on Eliquis by hematology, heparin d/c. * 03/22/17 Transfused RBC empirically per hematology. Palliative care consulted to assist with clarification of goals of treatment. Pt seen in room w RN at bedside. He is initially sleeping, arouses easily. Says "you found me" .Oriented to self, hospital however names a city in [place]. Tells me he is in the hospital for stomach bleeding. He is pleasant, cooperative, otherwise with poor insight into hospitalization asked him his son's name and where he lives he is unable to answer asked about his friends Donna and Denis he doesn't answer. Tells me about someone named Jonas whom he has known for a long time. Denies any complaint of pain, GI issues, primarily endorsed feeling tired and "fatigued". With repeated questions he does endorse some intermittent shortness of breath, some intermittent pain with deep breathing though unable to further quantify. Following exam call to healthcare surrogate Donna smithmail left. Call to son Amadeo Valente who is actually on his way to the hospital now I will await his arrival to meet with him in person. Of note this patient is known to palliative from recent admission 02/06 through 02/19 : At that time he was admitted for weakness, possible syncope. He had ongoing hallucinations. He had extensive workup per psychiatry, neurology, and he had ongoing delirium no clear etiology was identified. Workup essentially negative LP was considered however eventually symptoms started to improve and he did not receive LP. Function/Cognitive Trajectory Recent cognitive impairments fluctuating mental status onset January 2017. No clear etiology. 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 Most recently primarily bed bound due to prolonged hospitalization generalized weakness. Prior to of last year was mostly independent. Review of Systems ROS Limitations: Poor Historian (poor insight, forgetful/confusion) Constitutional: COMPLAINS OF: Fatigue, Generalized weakness, DENIES: Dizziness , Change in appetite, Pain Eyes: DENIES: Vision loss Ears, nose, mouth, throat: DENIES: Oral lesions Respiratory: COMPLAINS OF: Shortness of breath (says intermittently), DENIES: Cough Cardiovascular: DENIES: Chest pain Gastrointestinal: DENIES: Abdominal pain, Diarrhea, Nausea, Vomiting, Difficulty Swallowing, Dyspepsia or heartburn Genitourinary: COMPLAINS OF: Hematuria Musculoskeletal: COMPLAINS OF: Back pain (sometimes back pain), DENIES: Joint pain Integumentary: DENIES: Rash Neurologic: DENIES: Headache Psychiatric: DENIES: Hallucinations Past Family Social History Coded Allergies: benazepril (Verified Adverse Reaction, Intermediate, Cough, 03/08/17) captopril (Verified Adverse Reaction, Intermediate, Cough, 03/08/17) enalaprilat (Verified Adverse Reaction, Intermediate, Cough, 03/08/17) fosinopril (Verified Adverse Reaction, Intermediate, Cough, 03/08/17) lisinopril (Verified Adverse Reaction, Intermediate, Cough, 03/08/17) quinapril (Verified Adverse Reaction, Intermediate, Cough, 03/08/17) Past Medical History Insulin-dependent diabetes mellitus Hypertension Glaucoma Bladder cancer -high-grade T2- status post a few months of cisplatin, gemcitabine last chemotherapy January 2017 History of prostate cancer status post radiation . 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 Reported Medications Lopressor (Metoprolol Tartrate) 50 Mg Tab 50 Mg PO Q12HR Aspirin DR (Aspirin) 81 Mg Tabdr 81 Mg PO DAILY Atorvastatin (Atorvastatin Calcium) 20 Mg Tab 20 Mg PO DAILY Gnp Vitamin B-1 (Thiamine HCl) 100 Mg Tab 100 Mg PO DAILY Preservision Areds (Multiple Vitamins W/ Minerals) 1 Tab 2 Tab PO DAILY Cipro (Ciprofloxacin HCl) 500 Mg Tab 500 Mg PO BID 7 Days Risperdal (Risperidone) 1 Mg Tab 1 Mg PO DAILY AT 5PM Risperdal (Risperidone) 0.5 Mg Tab 0.5 Mg PO DAILY Floranex (Lactobacillus Acidophilus) 1 Tab 1 Tab PO BID Zinc Sulfate 220 Mg Tab 220 Mg PO DAILY 14 Days Vitamin C (Ascorbic Acid) 500 Mg Capsule 500 Mg PO BID Thera-M (Multiple Vitamins W/ Minerals) 1 Tab 1 Tab PO DAILY Novolog Inj (Insulin Aspart) 1,000 Unit/10 Ml Vial 0 SQ ACHS Sliding Scale as directed. Amlodipine (Amlodipine Besylate) 10 Mg Tab 10 Mg PO DAILY Dorzolamide Opth Drops (Dorzolamide HCl) 2% Soln 1 Drop RIGHT EYE BID Latanoprost Opth Drops (Latanoprost) 0.005% Drops 1 Drop RIGHT EYE HS Refrigerate until opened. Lantus Inj (Insulin Glargine) 1,000 Unit/10 Ml Vial 30 Units SQ HS Lantus Inj (Insulin Glargine) 1,000 Unit/10 Ml Vial 25 Units SQ DAILY . Current Medications Medications (Trade) Dose Ordered Sig/Myrna Route Start Time Stop Time Status Last Admin (NS Flush) 2 ml UNSCH PRN IV FLUSH 03/04/17 21:00 03/06/17 14:09 (NS Flush) 2 ml BID IV FLUSH 03/04/17 21:00 03/22/17 09:20 (Tylenol) 650 mg Q4H PRN PO 03/04/17 21:00 (Zofran Inj) 4 mg Q6H PRN IVP 03/04/17 21:00 (Narcan Inj) 0.4 mg UNSCH PRN IV PUSH 03/04/17 21:00 (Milk Of Magnesia Liq) 30 ml Q12H PRN PO 03/04/17 21:00 (Norvasc) 10 mg DAILY PO 03/05/17 09:00 03/22/17 09:09 (Lipitor) 20 mg DAILY PO 03/05/17 09:00 03/22/17 09:09 (Trusopt 2% Opth Soln) 1 drop BID RIGHT EYE 03/04/17 21:00 03/22/17 09:14 (Xalatan 0.005% Opth Soln) 1 drop HS RIGHT EYE 03/04/17 21:00 03/15/17 21:00 (Lopressor) 50 mg Q12HR PO 03/04/17 21:00 03/21/17 21:33 (Duoneb Neb) 1 ampule Q4HR NEB PRN NEB 03/06/17 01:15 03/17/17 09:13 (Lasix Inj) 20 mg BID@18 IV PUSH 03/07/17 09:00 03/22/17 09:16 (KCl) 10 meq DAILY PO 03/07/17 09:00 03/21/17 08:26 Miscellaneous Information Patient in critical care unit? Ass... Q361D .XX 03/07/17 17:00 (Levemir Inj) 30 units DAILY SQ 03/09/17 09:00 03/20/17 09:00 (Cozaar) 25 mg DAILY PO 03/10/17 11:45 03/22/17 09:11 (Flomax) 0.4 mg DAILY PO 03/10/17 11:45 03/22/17 09:12 (Levemir Inj) 25 units HS SQ 03/11/17 21:00 03/21/17 21:32 Pharmacy Profile Note 0 ml @ 0 mls/hr UNSCH OTHER 03/11/17 09:45 (Protonix) 40 mg DAILY PO 03/11/17 10:30 03/21/17 08:26 (NovoLOG SUPPLEMENTAL SCALE) 1 ACHS SLIDING SCALE SQ 03/11/17 21:00 03/21/17 21:32 Vancomycin HCl 1250 mg/Sodium Chloride 262.5 ml @ 250 mls/hr Q36H IV 03/12/17 18:00 03/21/17 17:58 (Bactrim Ds 800-160 Mg) 1 tab Q12H PO 03/12/17 16:00 03/22/17 04:00 (Tums Chew) 500 mg BID PRN PO 03/13/17 19:00 03/13/17 22:57 (D50w (Vial) Inj) 50 ml UNSCH PRN IV PUSH 03/16/17 09:45 (Glucagon Inj) 1 mg UNSCH PRN OTHER 03/16/17 09:45 (SEROquel) 25 mg BID@09,12 PO 03/17/17 12:00 03/21/17 11:57 (Deltasone) 20 mg BID PO 03/21/17 09:00 03/21/17 21:33 (Eliquis) 5 mg BID PO 03/22/17 09:30 03/22/17 11:08 Sodium Chloride 250 ml @ 15 mls/hr ONCE ONCE IV 03/22/17 10:45 03/23/17 03:24 (Tylenol) 650 mg Q4H PRN PO 03/22/17 10:45 03/22/17 23:59 (Benadryl) 25 mg Q4H PRN PO 03/22/17 10:45 Family History Father at age 84 of heart disease, and mother at age 80 . Substance Use Tobacco: Quit smoking 30 years ago Alcohol: None recent, history of alcohol abuse in the past but quit 10+ years ago Prescription med abuse: None Illicits: None . Psychosocial History Psychosocial:Born and raised in [place], moved to [place] a few years ago. He lives alone.He has been 3 times, a few years ago from third . He has one child, a son Amadeo Valente living in [place]. 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 Spiritual/Cultural Factors Baptism, son indicates that patient and his later years has not been closely affiliated with jain though is spiritual might enjoy tool storage attendant visits Health Care Surrogate: Copy in medical record Date completed: 02/08/17 Health Care Surrogate(s): Names friend Donna Chambers as primary, Julia Zavaleta as secondary Ethical and Legal Issues Patient has had ongoing episodes of confusion and intermittent hallucinations since last January. During hospitalizations mental status has fluctuated, at times he has had some awareness of his malignancy, plans for surgery and the gravity of his conditions. Given his fluctuating mental status patient may not have total capacity for making decisions , recommend shared decision making. He has previously completed a healthcare surrogate designating his close friend and retired nurse Donna Chambers is his HCS. Physical Exam Vital Signs Date Time Temp Pulse Resp B/P (MAP) Pulse Ox O2 Delivery O2 Flow Rate FiO2 03/22/17 12:22 97.8 55 18 150/66 (94) 96 03/22/17 08:42 97.5 59 18 155/97 (116) 97 03/22/17 08:00 96 2.00 03/22/17 04:00 98.2 85 20 139/86 (103) 93 03/22/17 00:00 97.0 82 20 106/75 (85) 94 03/21/17 20:54 97.0 67 20 134/56 (82) 96 03/21/17 19:00 Nasal Cannula 5.00 21 03/21/17 16:00 97.5 60 18 126/60 (82) 92 03/21/17 13:00 97.9 54 18 117/60 (79) 94 03/22/17 03/23/17 19:00 07:00 Output Total 400 ml Balance -400 ml Output Urine Total 400 ml Exam CONSTITUTIONAL/GENERAL: This is an adequately nourished patient, in no apparent distress. TUBES/LINES/DRAINS: Peripheral IV upper extremity, nasal cannula O2, urinary catheter SKIN: No jaundice, rashes, or lesions. Few areas Ecchymoses on upper extremities. Skin warm and dry. HEAD: Atraumatic. Normocephalic. EYES: Pupils equal and round and reactive. Extraocular motions intact. No scleral icterus. No injection or drainage. Fundi not examined. ENT: Nose without bleeding or purulent drainage. Throat without visible erythema, exudates, masses, or lesions. NECK: Trachea midline. Supple, nontender. No palpable thyroid enlargement or nodularity. CARDIOVASCULAR: Regular rate and rhythm without murmur. No JVD. Peripheral pulses symmetric. RESPIRATORY/CHEST: Symmetric, unlabored respirations. On 2 L nasal cannula. Clear to auscultation. Breath sounds equal bilaterally. GASTROINTESTINAL: Abdomen soft, non-tender, nondistended. No hepato-splenomegaly , or palpable masses. No guarding. Bowel sounds normoactive . GENITOURINARY: Without palpable bladder distension. Caballero catheter in place. MUSCULOSKELETAL: Extremities without clubbing, cyanosis, or edema. 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 No joint tenderness or effusion noted. LYMPHATICS: No palpable cervical or supraclavicular adenopathy. NEUROLOGICAL: Sleeping, easily becomes Awake and alert. Her into to self, Hospital however not oriented to city state, takes, family. Pleasantly confused. Does follow simple commands. Moves all 4 extremities ( residual left AKA limb) PSYCHIATRIC: No obvious anxiety/depression. no apparent hallucinations or other psychotic thought process. Diagnostic Tests Laboratory Laboratory Tests Test 03/20/17 07:07 03/20/17 14:10 03/20/17 16:04 03/20/17 22:45 Blood Urea Nitrogen 34 MG/DL (7-18) Creatinine 1.28 MG/DL (0.60-1.30) Random Glucose 148 MG/DL (74-106) Calcium Level 7.6 MG/DL (8.5-10.1) Sodium Level 144 MEQ/L (136-145) Potassium Level 4.6 MEQ/L (3.5-5.1) Chloride Level 112 MEQ/L (98-107) Carbon Dioxide Level 25.4 MEQ/L (21.0-32.0) Anion Gap 7 MEQ/L (5-15) Estimat Glomerular Filtration Rate 55 ML/MIN (>89) White Blood Count 13.5 TH/MM3 (4.0-11.0) 10.7 TH/MM3 (4.0-11.0) Red Blood Count 2.94 MIL/MM3 (4.50-5.90) 2.82 MIL/MM3 (4.50-5.90) Hemoglobin 8.6 GM/DL (13.0-17.0) 8.7 GM/DL (13.0-17.0) Hematocrit 26.7 % (39.0-51.0) 25.1 % (39.0-51.0) Mean Corpuscular Volume 90.8 FL (80.0-100.0) 89.1 FL (80.0-100.0) Mean Corpuscular Hemoglobin 29.1 PG (27.0-34.0) 30.9 PG (27.0-34.0) Mean Corpuscular Hemoglobin Concent 32.1 % (32.0-36.0) 34.7 % (32.0-36.0) Red Cell Distribution Width 17.3 % (11.6-17.2) 17.0 % (11.6-17.2) Platelet Count 248 TH/MM3 (150-450) 244 TH/MM3 (150-450) Mean Platelet Volume 9.2 FL (7.0-11.0) 9.4 FL (7.0-11.0) CBC Comment AUTO DIFF Differential Total Cells Counted 100 Neutrophils % (Manual) 92 % (16-70) Band Neutrophils % 2 % (0-6) Lymphocytes % 3 % (9-44) Monocytes % 3 % (0-8) Neutrophils # (Manual) 12.7 TH/MM3 (1.8-7.7) Differential Comment FINAL DIFF MANUAL Platelet Estimate NORMAL (NORMAL) Platelet Morphology Comment NORMAL (NORMAL) Ovalocytes 1+ (NORMAL) [place] Cells 2+ (NORMAL) Prothrombin Time 10.7 SEC (9.8-11.6) Prothromb Time International Ratio 1.1 RATIO Activated Partial Thromboplast Time 21.6 SEC (24.3-30.1) 22.8 SEC (24.3-30.1) Test 03/21/17 06:32 03/21/17 11:09 03/21/17 16:04 03/22/17 00:34 White Blood Count 8.9 TH/MM3 (4.0-11.0) Red Blood Count 2.92 MIL/MM3 (4.50-5.90) Hemoglobin 8.7 GM/DL (13.0-17.0) Hematocrit 25.5 % (39.0-51.0) Mean Corpuscular Volume 87.5 FL (80.0-100.0) Mean Corpuscular Hemoglobin 29.8 PG (27.0-34.0) Mean Corpuscular Hemoglobin Concent 34.0 % (32.0-36.0) Red Cell Distribution Width 16.6 % (11.6-17.2) Platelet Count 225 TH/MM3 (150-450) Mean Platelet Volume 8.9 FL (7.0-11.0) Neutrophils (%) (Auto) 83.7 % (16.0-70.0) Lymphocytes (%) (Auto) 8.9 % (9.0-44.0) Monocytes (%) (Auto) 7.2 % (0.0-8.0) Eosinophils (%) (Auto) 0.0 % (0.0-4.0) Basophils (%) (Auto) 0.2 % (0.0-2.0) Neutrophils # (Auto) 7.5 TH/MM3 (1.8-7.7) Lymphocytes # (Auto) 0.8 TH/MM3 (1.0-4.8) Monocytes # (Auto) 0.6 TH/MM3 (0-0.9) Eosinophils # (Auto) 0.0 TH/MM3 (0-0.4) Basophils # (Auto) 0.0 TH/MM3 (0-0.2) CBC Comment DIFF FINAL Differential Comment Activated Partial Thromboplast Time 226.4 SEC (24.3-30.1) 97.2 SEC (24.3-30.1) 71.6 SEC (24.3-30.1) 232.0 SEC (24.3-30.1) Blood Urea Nitrogen 34 MG/DL (7-18) Creatinine 1.28 MG/DL (0.60-1.30) Random Glucose 38 MG/DL (74-106) Calcium Level 7.6 MG/DL (8.5-10.1) Sodium Level 142 MEQ/L (136-145) Potassium Level 4.1 MEQ/L (3.5-5.1) Chloride Level 109 MEQ/L (98-107) Carbon Dioxide Level 25.1 MEQ/L (21.0-32.0) Anion Gap 8 MEQ/L (5-15) Estimat Glomerular Filtration Rate 55 ML/MIN (>89) Test 03/22/17 03:33 03/22/17 06:46 White Blood Count 8.8 TH/MM3 (4.0-11.0) Red Blood Count 2.96 MIL/MM3 (4.50-5.90) Hemoglobin 8.7 GM/DL (13.0-17.0) Hematocrit 25.7 % (39.0-51.0) Mean Corpuscular Volume 87.0 FL (80.0-100.0) Mean Corpuscular Hemoglobin 29.4 PG (27.0-34.0) Mean Corpuscular Hemoglobin Concent 33.9 % (32.0-36.0) Red Cell Distribution Width 16.9 % (11.6-17.2) Platelet Count 210 TH/MM3 (150-450) Mean Platelet Volume 8.6 FL (7.0-11.0) Neutrophils (%) (Auto) 88.7 % (16.0-70.0) Lymphocytes (%) (Auto) 5.3 % (9.0-44.0) Monocytes (%) (Auto) 5.8 % (0.0-8.0) Eosinophils (%) (Auto) 0.0 % (0.0-4.0) Basophils (%) (Auto) 0.2 % (0.0-2.0) Neutrophils # (Auto) 7.8 TH/MM3 (1.8-7.7) Lymphocytes # (Auto) 0.5 TH/MM3 (1.0-4.8) Monocytes # (Auto) 0.5 TH/MM3 (0-0.9) Eosinophils # (Auto) 0.0 TH/MM3 (0-0.4) Basophils # (Auto) 0.0 TH/MM3 (0-0.2) CBC Comment DIFF FINAL Differential Comment Activated Partial Thromboplast Time 124.9 SEC (24.3-30.1) 50.9 SEC (24.3-30.1) Blood Urea Nitrogen 39 MG/DL (7-18) Creatinine 1.31 MG/DL (0.60-1.30) Random Glucose 134 MG/DL (74-106) Total Protein 4.2 GM/DL (6.4-8.2) Calcium Level 7.4 MG/DL (8.5-10.1) Sodium Level 140 MEQ/L (136-145) Potassium Level 4.5 MEQ/L (3.5-5.1) Chloride Level 107 MEQ/L (98-107) Carbon Dioxide Level 25.8 MEQ/L (21.0-32.0) Anion Gap 7 MEQ/L (5-15) Estimat Glomerular Filtration Rate 53 ML/MIN (>89) Protein Corrected Calcium 9.1 MG/DL (8.5-10.1) Result Diagram: 03/22/17 0333 03/22/17 0333 Microbiology Microbiology Date/Time Source Procedure Growth Status 03/04/17 17:04 Blood Peripheral Aerobic Blood Culture - Final NO GROWTH IN 5 DAYS Complete 03/04/17 17:04 Blood Peripheral Anaerobic Blood Culture - Final NO GROWTH IN 5 DAYS Complete 03/11/17 03:00 Stool Stool Stool Occult Blood ([facility]) - Final HEMOCCULT POSITIVE Complete 03/04/17 20:50 Nasal Washing Influenza Types A,B Antigen ([facility]ETA) - Final NEGATIVE FOR FLU A AND B ANTIGEN.... Complete 03/11/17 09:42 Urine Clean Catch Urine Culture - Final NO GROWTH IN 48 HOURS. Complete 03/05/17 03:35 Abscess Leg Gram Stain - Final Complete 03/05/17 03:35 Wound Culture - Final Staphylococcus Aureus Complete Imaging Last Impressions CT Angiography 03/21/17 0000 Signed Impressions: Service Date/Time: Tuesday, March 21, 2017 14:02 - CONCLUSION: 1. Bilateral pulmonary emboli. 2. Small bilateral pleural effusions right greater than left with consolidation in the right posterior lung base. Clemente Alcala MD Lung Scan- Nuclear Medicine 03/20/17 0000 Signed Impressions: Service Date/Time: Monday, March 20, 2017 11:15 - CONCLUSION: Intermediate to high probability of pulmonary embolism. Correlation suggested. Bennett Ibarra MD FACR Chest X-Ray 03/20/17 0000 Signed Impressions: Service Date/Time: Monday, March 20, 2017 13:47 - CONCLUSION: Loculated cardiomegaly without failure or infiltrate Bennett Ibarra MD FACR Head CT 03/18/17 0000 Signed Impressions: Service Date/Time: Saturday, March 18, 2017 11:31 - CONCLUSION: 1. 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 2. Diffuse cerebral atrophy. 3. No acute infarct, acute hemorrhage, mass effect or extra-axial fluid collections. 4. Fluid is noted within the right mastoid air cells. Mejia Davidson MD Venous Access Device Injection 03/14/17 0000 Signed Impressions: Service Date/Time: Tuesday, March 14, 2017 12:06 - CONCLUSION: 1. The port is in excellent position and flushes easily. 2. Contrast could not be withdrawn from the port though no definite fibrin sheath is evident around the catheter. The catheter was locked with 4 mg of TPA. Jose J Ibarra MD Brain MRI 03/05/17 0000 Signed Impressions: Service Date/Time: Sunday, March 05, 2017 11:28 - CONCLUSION: Moderate motion artifact. Negative for acute ischemic event. Atrophy with periventricular changes. Bennett Ibarra MD FACR Abdomen/Pelvis CT 03/04/17 1742 Signed Impressions: Service Date/Time: Saturday, March 04, 2017 18:28 - CONCLUSION: 1. Bilateral pleural effusions small to moderate in size. 2. No acute findings in the abdomen and pelvis. Corby Melendez MD Patient/Family Conference Present at Family Conference: Adam Childs Family Conference Time (mins): 30 Family Conference Location: Consult Room Issues Discussed: Met with adam Childs in consultation area. Discussion included: * Palliative care role, purpose, approach * Additional medical, psychosocial, and spiritual history * Patients general health, functional status, and cognitive changes in the months leading up to the current hospitalization * Patient/family understanding of the current medical problems * Patient/family understanding of prognosis * Patients goals of care as best understood from advance directives and/or conversations and/or values * Current medical treatment options and benefits/burdens of those options * CODE STATUS-adam Childs is certain patient would want DNR status confirmed this with Donna as is designated healthcare surrogate-he would like DNR entered as soon as Donna is able to contact me back. * Likely scenarios comparing ongoing aggressive care with a transition to comfort measures only * Review of legal decision makers per patient healthcare surrogate, Amadeo indicates that he and Donna are in close communication on her both on the same page and supportive of patient's wishes, and will make decisions together, during prior admission patient did designate healthcare surrogate a close friend and nurse Donna * Questions answered to the best of my ability * Palliative care contact information provided Extensive review of recent hospitalization, extensive workup etc. Extensive review of current hospitalization workup, treatments in place. Review of current assessment and the patient does remain high risk for ongoing complications and setbacks, and that we still have no clear etiology for mental status changes. Assessment and Plan Disease Oriented Problem List: (1) Pulmonary emboli (2) Bladder cancer (3) Catheter-associated urinary tract infection (4) Metabolic encephalopathy (5) GI bleed not requiring more than 4 units of blood in 24 hours, ICU, or surgery (6) Delirium (7) insulin-dependent diabetes (8) Hypertension (9) glaucoma (10) remote history of CVA (11) history of prostate cancer, s/p radiation Symptom Scale: (1) weakness 0-10 Scale: Unable to quantify (2) pain 0-10 Scale: Unable to quantify Pertinent Non-Medical Issues (Per prior palliative care interactions ) =Psychosocial:Born and raised in [place], moved to [place] a few years ago. He lives alone.He has been 3 times, a few years ago from third . He has one child, a son Amadeo Valente living in [place]. 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 =Spiritual: The patient has a Baptism background, and he has attended a local jain intermittently. He is not affiliated with any particular jain or clergy at this time. He is open to tool storage attendant visits. =Legal: Patient has had ongoing episodes of confusion and intermittent hallucinations since last January. During hospitalizations mental status has fluctuated, at times he has had some awareness of his malignancy, plans for surgery and the gravity of his conditions. Given his fluctuating mental status patient may not have total capacity for making decisions , recommend shared decision making. He has previously completed a healthcare surrogate designating his close friend and retired nurse Donna Chambers is his HCS. =Ethical issues impacting care: No ethical issues identified . Important Contacts Friend and HEALTHCARE SURROGATE: Donna Chambers [phone] Son: Amadeo Valente [phone] [id number]-irl Julia Zavaleta (alternate healthcare surrogate)[phone] . Prognosis The patient's overall prognosis is somewhat guarded in the long-term. He had been in the midst of aggressive treatment for his invasive bladder cancer, and has had worsening weakness, not helped by his ongoing confusion and delirium, onset January 2017. Etiology not clear at conclusion of last prolonged hospitalization for the same, patient with no history of psychiatric problems. Oncology felt likely secondary to metabolic encephalopathy. If his confusion and inability to participate in activities needed to improve/maintain strength continued, and poor nutrition 2/2 continues he will likely experience continued decline and debility. it is not clear that he will ever get well enough to obtain additional treatment for his bladder cancer. He now has new findings of bilateral pulmonary embolus which will further complicate his medical course. . Plan * Legal decision maker: Patient has had ongoing episodes of confusion and intermittent hallucinations since last January. During hospitalizations mental status has fluctuated, at times he has had some awareness of his malignancy, plans for surgery and the gravity of his conditions. Given his fluctuating mental status patient may not have total capacity for making decisions , recommend shared decision making. He has previously completed a healthcare surrogate naming his close friend and retired nurse Donna Chambers is his HCS. * Goals: Was able to speak with son Amadeo today previously spoke to Donna during most recent hospitalization. Goals right now aggressive short of resuscitation however Donna is designated healthcare surrogate I am awaiting her to contact me back regarding CODE STATUS change to DNR. Amadeo is doing indicates that he and Donna are working together in decision-making and supporting patient's goals. Family/decision makers open to ongoing conversation regarding goals as clinical course evolves. * CODE STATUS: Full code by default, prior admission patient was DNR * SYMPTOMS: ----Delirium --fluctuating mental status since admission January 2017. Extensive workup completed at that time. No clear etiology at that time. Multiple psychiatric medications and adjustments. Long period Without opiates or benzodiazepines. Complete workup short of LP was done all with negative findings. ??? Dementia/ CT brain = diffuse cerebral atrophy --Weakness/debility- patient continues to be confused and with inability to fully participate in wellness activities; likely his weakness and decline will continue. Would benefit from maximized PT, OT if neurological status improves and he is able to participate. -- pain-endorses some pain sometimes with breathing/some intermittent shortness of breath,sometimes back pain, unable to qualify/quantify. + PE, + prolonged bedbound status. has prn Tylenol available. Cautious use of opiates given hx delirium, AMS unknown etiology * Palliative care will continue to follow during hospital course as condition evolves, to assist patient/decision-maker with understanding of medical conditions, weighing benefits/burdens of treatment options, for clarification of goals of treatment. Additionally will assist with any symptoms of palliative concern . Thank you for the opportunity to participate in the care of Mr. Valente. Attestation To help prompt me to consider important information that might be impacting today's encounter and assessment, information from prior notes written by myself or my colleagues may have been "brought forward" into today's note. My signature on this note, however, is an attestation that I personally performed the exam, history, and/or decision-making noted today, and, unless otherwise indicated, the interactions with patient, family, and staff as well as the review of records all occurred today. I also attest that the listed assessment and stated plan reflect my best clinical judgment today based on the combination of historical information, prior notes, and today's exam/ interactions. When time spent is documented, it refers only to time spent today by the signer, or if indicated, combined time spent today by collaborating physician/nurse practitioner. Natalie Sanchez Mar 22, 2017 12:56
--- NOTE | 2017-03-22 14:57 | HHI.PR ---
Subjective Remarks Follow-up pulmonary embolus, encephalopathy. Patient reports pain "in different spots". He does report chest pain on both the right and left. This pain is worse with cough or deep breaths. Objective Vitals Vital Signs Date Time Temp Pulse Resp B/P (MAP) Pulse Ox O2 Delivery O2 Flow Rate FiO2 03/22/17 12:22 97.8 55 18 150/66 (94) 96 03/22/17 08:42 97.5 59 18 155/97 (116) 97 03/22/17 08:00 96 2.00 03/22/17 04:00 98.2 85 20 139/86 (103) 93 03/22/17 00:00 97.0 82 20 106/75 (85) 94 03/21/17 20:54 97.0 67 20 134/56 (82) 96 03/21/17 19:00 Nasal Cannula 5.00 21 03/21/17 16:00 97.5 60 18 126/60 (82) 92 I/O 03/21/17 03/21/17 03/21/17 03/22/17 03/22/17 03/22/17 07:00 15:00 23:00 07:00 15:00 23:00 Output Total 950 ml 1000 ml 900 ml 1200 ml Balance -950 ml -1000 ml -900 ml -1200 ml Output Urine Total 950 ml 1000 ml 900 ml 1200 ml Result Diagram: 03/22/17 0333 03/22/[address] Angiography 03/21/17 0000 Signed Impressions: Service Date/Time: Tuesday, March 21, 2017 14:02 - CONCLUSION: 1. Bilateral pulmonary emboli. 2. Small bilateral pleural effusions right greater than left with consolidation in the right posterior lung base. Clemente Alcala MD Lung Scan-VQ Nuclear Medicine 03/20/17 0000 Signed Impressions: Service Date/Time: Monday, March 20, 2017 11:15 - CONCLUSION: Intermediate to high probability of pulmonary embolism. Correlation suggested. Bennett Ibarra MD FACR Chest X-Ray 03/20/17 0000 Signed Impressions: Service Date/Time: Monday, March 20, 2017 13:47 - CONCLUSION: Loculated cardiomegaly without failure or infiltrate Bennett Ibarra MD FACR Head CT 03/18/17 0000 Signed Impressions: Service Date/Time: Saturday, March 18, 2017 11:31 - CONCLUSION: 1. 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 2. Diffuse cerebral atrophy. 3. No acute infarct, acute hemorrhage, mass effect or extra-axial fluid collections. 4. Fluid is noted within the right mastoid air cells. Mejia Davidson MD Venous Access Device Injection 03/14/17 0000 Signed Impressions: Service Date/Time: Tuesday, March 14, 2017 12:06 - CONCLUSION: 1. The port is in excellent position and flushes easily. 2. Contrast could not be withdrawn from the port though no definite fibrin sheath is evident around the catheter. The catheter was locked with 4 mg of TPA. Jose J Ibarra MD Brain MRI 03/05/17 0000 Signed Impressions: Service Date/Time: Sunday, March 05, 2017 11:28 - CONCLUSION: Moderate motion artifact. Negative for acute ischemic event. Atrophy with periventricular changes. Bennett Ibarra MD FACR Abdomen/Pelvis CT 03/04/17 1742 Signed Impressions: Service Date/Time: Saturday, March 04, 2017 18:28 - CONCLUSION: 1. Bilateral pleural effusions small to moderate in size. 2. No acute findings in the abdomen and pelvis. Corby Melendez MD Objective Remarks General: Elderly male in no acute distress. In soft restraints. Heart: Regular rate and rhythm. No murmur. Lungs: Bibasilar crackles are noted. Breathing is nonlabored. Abdomen: Soft, nontender, nondistended. Extremities: 1+ right lower extremity edema. Left below-knee amputation. Psych: Awake. Answers questions. Somewhat confused. Procedures None Urinary Catheter: Yes Assessment to: Continue Caballero insert reason: Obstruction/Retention Vascular Central Line Catheter: No A/P Problem List: (1) Catheter-associated urinary tract infection ICD Code: T83.511A - Infection and inflammatory reaction due to indwelling urethral catheter, initial encounter; N39.0 - Urinary tract infection, site not specified Status: Acute (2) Metabolic encephalopathy ICD Code: G93.41 - Metabolic encephalopathy Status: Acute Assessment and Plan 1. Acute metabolic encephalopathy: Likely secondary to hypoglycemia, hypoxia, sedating medications. Ativan has been discontinued. EEG shows encephalopathy. CT of the head is unremarkable. Appreciate psychiatry recommendations. 2. Pulmonary embolus: VQ scan shows intermediate to high probability of pulmonary embolism. CT pulmonary angiogram confirms PE. Appreciate pulmonology recommendations. Heparin drip discontinued. Started on Eliquis. Discussed with Dr. Dumont. 3. Possible healthcare acquired pneumonia: Continue antibiotics, oxygen, steroids. Taper steroids slowly. 4. Pyuria: Possibly epididymitis. Switched from Rocephin to Bactrim. Caballero catheter in place. 5. Urinary retention: Caballero catheter in place. Appreciate urology recommendations. Change Caballero catheter monthly. 6. History of bladder cancer: Appreciate oncology, urology recommendations. 7. Insulin-dependent diabetes mellitus: Continue Levemir. Monitor Accu-Cheks and cover with sliding scale insulin. 8. Hypertension: Continue home medications. 9. Hyperlipidemia: Continue home medications. 10. Agitation: Appreciate psychiatry recommendations. 11. Generalized weakness: Continue PT/OT. 12. GI bleed: Status post EGD/colonoscopy 03/16/16. Appreciate GI recommendations. Monitor H&H. No active bleeding noted. Monitor closely while on anticoagulation. 13. DVT prophylaxis: SCDs. 14. Palliative care consult pending. Nicholas Loredo MD Mar 22, 2017 14:57
[2017-03-22] MEDS: LATANOPROST 0.005% OPHT SOLN 2.5 ML BTL RIGHT EYE SCH (21:00)
[2017-03-23] VITALS (8 sets, daily range): BP systolic 128–172; BP diastolic 60–106; PULSE 59–69; RESP 18–20; TEMP 97.3–98.4; O2SAT 93–99
[2017-03-23] MEDS: SULFAMETHOXAZOLE-TRIMETHOPRIM DS 800-160 MG TAB PO SCH (04:05)
[2017-03-23] MEDS ORDERED: PHARMACY ORDERED LAB ONE (05:45)
[2017-03-23] MEDS: VANCOMYCIN INJ 1,250 MG in SODIUM CHLOR 0.9% 250 ML INJ 250 ML IV SCH (06:16)
[2017-03-23] MEDS: INSULIN ASPART SUPPLEMENTAL SCALE SQ SCH ×4 (08:00→21:00)
[2017-03-23] MEDS: DORZOLAMIDE 2% OPTH SOLN 200 DROP/10 ML BTLO RIGHT EYE SCH ×2 (09:00→21:45)
[2017-03-23] MEDS: INSULIN DETEMIR 100 UNITS/ML VIAL SQ SCH (09:00)
[2017-03-23] MEDS: SODIUM CHLORIDE 0.9% FLUSH 10 ML FLUSH IV FLUSH SCH ×2 (09:00→21:43)
[2017-03-23] MEDS: FUROSEMIDE 20 MG/2 ML VIAL IV PUSH SCH ×2 (09:00→17:36)
[2017-03-23] MEDS: POTASSIUM CHLORIDE 10 MEQ CAP PO SCH (10:57)
[2017-03-23] MEDS: METOPROLOL TARTRATE 50 MG TAB PO SCH ×2 (10:58→21:43)
[2017-03-23] MEDS: APIXABAN 5 MG TABLET PO SCH ×2 (10:58→21:43)
[2017-03-23] MEDS: ATORVASTATIN 20 MG TAB PO SCH (10:58)
[2017-03-23] MEDS: PANTOPRAZOLE SOD 40 MG DELAYED RELEASE TAB PO SCH (10:58)
[2017-03-23] MEDS: LOSARTAN 25 MG TAB PO SCH (10:58)
[2017-03-23] MEDS: TAMSULOSIN HCL 0.4 MG CAP PO SCH (10:58)
[2017-03-23] MEDS: QUEtiapine FUMARATE 25 MG TAB PO SCH ×2 (10:58→17:28)
[2017-03-23] MEDS: predniSONE 20 MG TAB PO SCH ×2 (10:59→21:43)
--- NOTE | 2017-03-23 11:18 | HHI.PR ---
Subjective Remarks Follow up PE, encephalopathy. Patient states "I feel better than yesterday". Pain in arms and legs. Objective Vitals Vital Signs Date Time Temp Pulse Resp B/P (MAP) Pulse Ox O2 Delivery O2 Flow Rate FiO2 03/23/17 10:28 99 Nasal Cannula 2.00 03/23/17 08:00 97.5 62 18 172/73 (106) 99 03/23/17 04:30 97.6 69 20 129/60 (83) 95 03/23/17 02:55 Nasal Cannula 2.00 03/23/17 02:36 Nasal Cannula 2.00 03/23/17 00:15 98.4 64 19 130/64 (86) 96 03/22/17 21:55 Nasal Cannula 2.00 03/22/17 21:15 97.5 62 18 133/68 (89) 96 03/22/17 19:48 97.3 86 16 187/74 94 03/22/17 17:29 97.3 58 14 158/67 94 03/22/17 17:23 97 21 03/22/17 17:03 98.7 86 15 142/82 97 03/22/17 16:00 97.1 64 18 157/97 (117) 03/22/17 12:22 97.8 55 18 150/66 (94) 96 I/O 03/22/17 03/22/17 03/22/17 03/23/17 03/23/17 03/23/17 07:00 15:00 23:00 07:00 15:00 23:00 Intake Total 120 ml 1230 ml 400 ml Output Total 900 ml 1200 ml 1000 ml 700 ml Balance -900 ml -1080 ml 230 ml -300 ml Intake Oral 120 ml 800 ml 400 ml Packed Cells 400 ml Blood Product IV Normal Saline Flush 30 ml Output Urine Total 900 ml 1200 ml 1000 ml 700 ml # Bowel Movements 0 0 Result Diagram: 03/22/17 0333 03/22/17 [address] Angiography 03/21/17 0000 Signed Impressions: Service Date/Time: Tuesday, March 21, 2017 14:02 - CONCLUSION: 1. Bilateral pulmonary emboli. 2. Small bilateral pleural effusions right greater than left with consolidation in the right posterior lung base. Clemente Alcala MD Lung Scan- Nuclear Medicine 03/20/17 0000 Signed Impressions: Service Date/Time: Monday, March 20, 2017 11:15 - CONCLUSION: Intermediate to high probability of pulmonary embolism. Correlation suggested. Bennett Ibarra MD FACR Chest X-Ray 03/20/17 0000 Signed Impressions: Service Date/Time: Monday, March 20, 2017 13:47 - CONCLUSION: Loculated cardiomegaly without failure or infiltrate Bennett Ibarra MD FACR Head CT 03/18/17 0000 Signed Impressions: Service Date/Time: Saturday, March 18, 2017 11:31 - CONCLUSION: 1. 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 2. Diffuse cerebral atrophy. 3. No acute infarct, acute hemorrhage, mass effect or extra-axial fluid collections. 4. Fluid is noted within the right mastoid air cells. Mejia Davidson MD Venous Access Device Injection 03/14/17 0000 Signed Impressions: Service Date/Time: Tuesday, March 14, 2017 12:06 - CONCLUSION: 1. The port is in excellent position and flushes easily. 2. Contrast could not be withdrawn from the port though no definite fibrin sheath is evident around the catheter. The catheter was locked with 4 mg of TPA. Jose J Ibarra MD Brain MRI 03/05/17 0000 Signed Impressions: Service Date/Time: Sunday, March 05, 2017 11:28 - CONCLUSION: Moderate motion artifact. Negative for acute ischemic event. Atrophy with periventricular changes. Bennett Ibarra MD FACR Abdomen/Pelvis CT 03/04/17 1742 Signed Impressions: Service Date/Time: Saturday, March 04, 2017 18:28 - CONCLUSION: 1. Bilateral pleural effusions small to moderate in size. 2. No acute findings in the abdomen and pelvis. Corby Melendez MD Objective Remarks General: Elderly male in no acute distress. In soft restraints. Heart: Regular rate and rhythm. No murmur. Lungs: Bibasilar crackles are noted. Breathing is nonlabored. Abdomen: Soft, nontender, nondistended. Extremities: 1+ right lower extremity edema. Left below-knee amputation. Psych: Awake. Answers questions. Confused. Procedures None Urinary Catheter: Yes Assessment to: Continue Caballero insert reason: Obstruction/Retention Vascular Central Line Catheter: No A/P Problem List: (1) Catheter-associated urinary tract infection ICD Code: T83.511A - Infection and inflammatory reaction due to indwelling urethral catheter, initial encounter; N39.0 - Urinary tract infection, site not specified Status: Acute (2) Metabolic encephalopathy ICD Code: G93.41 - Metabolic encephalopathy Status: Acute Assessment and Plan 1. Acute metabolic encephalopathy: Likely secondary to hypoglycemia, hypoxia, sedating medications. Ativan has been discontinued. EEG shows encephalopathy. CT of the head is unremarkable. Appreciate psychiatry recommendations. More alert today. 2. Pulmonary embolus: VQ scan shows intermediate to high probability of pulmonary embolism. CT pulmonary angiogram confirms PE. Appreciate pulmonology recommendations. Heparin drip discontinued. Continue Eliquis. 3. Possible healthcare acquired pneumonia: Continue antibiotics, oxygen, steroids. Taper steroids slowly. 4. Pyuria: Possibly epididymitis. Switched from Rocephin to Bactrim. Caballero catheter in place. 5. Urinary retention: Caballero catheter in place. Appreciate urology recommendations. Change Caballero catheter monthly. 6. History of bladder cancer: Appreciate oncology, urology recommendations. 7. Insulin-dependent diabetes mellitus: Continue Levemir. Monitor Accu-Cheks and cover with sliding scale insulin. 8. Hypertension: Continue home medications. 9. Hyperlipidemia: Continue home medications. 10. Agitation: Appreciate psychiatry recommendations. 11. Generalized weakness: Continue PT/OT. 12. GI bleed: Status post EGD/colonoscopy 03/16/16. Appreciate GI recommendations. Monitor H&H. No active bleeding noted. Monitor closely while on anticoagulation. Labs are pending. 13. DVT prophylaxis: SCDs. 14. Appreciate palliative care assistance. Nicholas Loredo MD Mar 23, 2017 11:18
--- NOTE | 2017-03-23 12:12 | PD.ONC.PN ---
Subjective Subjective Remarks Afebrile overnight. Patient resting in bed in restraints. No obvious bleeding. Tolerating Eliquis. Objective Data Date Time Temp Pulse Resp B/P (MAP) Pulse Ox O2 Delivery O2 Flow Rate FiO2 03/23/17 10:28 99 Nasal Cannula 2.00 03/23/17 08:00 97.5 62 18 172/73 (106) 99 03/23/17 04:30 97.6 69 20 129/60 (83) 95 03/23/17 02:55 Nasal Cannula 2.00 03/23/17 02:36 Nasal Cannula 2.00 03/23/17 00:15 98.4 64 19 130/64 (86) 96 03/22/17 21:55 Nasal Cannula 2.00 03/22/17 21:15 97.5 62 18 133/68 (89) 96 03/22/17 19:48 97.3 86 16 187/74 94 03/22/17 17:29 97.3 58 14 158/67 94 03/22/17 17:23 97 21 03/22/17 17:03 98.7 86 15 142/82 97 03/22/17 16:00 97.1 64 18 157/97 (117) 03/22/17 12:22 97.8 55 18 150/66 (94) 96 03/23/17 03/23/17 03/23/17 07:00 15:00 23:00 Intake Total 400 ml Output Total 700 ml Balance -300 ml Result Diagram: 03/22/17 0333 03/22/17 0333 Laboratory Results Laboratory Tests Test 03/23/17 06:15 Vancomycin Level Trough 11.8 MCG/ML Administered Medications Medications (Trade) Dose Ordered Sig/Myrna Route PRN Reason Start Time Stop Time Status Last Admin Dose Admin Sodium Chloride (NS Flush) 2 ml UNSCH PRN IV FLUSH FLUSH AFTER USING IV ACCESS 03/04/17 21:00 03/06/17 14:09 Sodium Chloride (NS Flush) 2 ml BID IV FLUSH 03/04/17 21:00 03/23/17 09:00 Amlodipine Besylate (Norvasc) 10 mg DAILY PO 03/05/17 09:00 03/23/17 10:57 Atorvastatin Calcium (Lipitor) 20 mg DAILY PO 03/05/17 09:00 03/23/17 10:58 Dorzolamide HCl (Trusopt 2% Opth Soln) 1 drop BID RIGHT EYE 03/04/17 21:00 03/22/17 22:42 Latanoprost (Xalatan 0.005% Opth Soln) 1 drop HS RIGHT EYE 03/04/17 21:00 03/15/17 21:00 Metoprolol Tartrate (Lopressor) 50 mg Q12HR PO 03/04/17 21:00 03/23/17 10:58 Albuterol/ Ipratropium (Duoneb Neb) 1 ampule Q4HR NEB PRN NEB SOB/WHEEZING 03/06/17 01:15 03/17/17 09:13 Furosemide (Lasix Inj) 20 mg BID@ IV PUSH 03/07/17 09:00 03/23/17 09:00 Potassium Chloride (KCl) 10 meq DAILY PO 03/07/17 09:00 03/23/17 10:57 Insulin Detemir (Levemir Inj) 30 units DAILY SQ 03/09/17 09:00 03/23/17 09:00 Losartan Potassium (Cozaar) 25 mg DAILY PO 03/10/17 11:45 03/23/17 10:58 Tamsulosin HCl (Flomax) 0.4 mg DAILY PO 03/10/17 11:45 03/23/17 10:58 Insulin Detemir (Levemir Inj) 25 units HS SQ 03/11/17 21:00 03/22/17 22:56 Pantoprazole Sodium (Protonix) 40 mg DAILY PO 03/11/17 10:30 03/23/17 10:58 Insulin Aspart (NovoLOG SUPPLEMENTAL SCALE) 1 ACHS SLIDING SCALE SQ 03/11/17 21:00 03/21/17 21:32 Calcium Carbonate (Tums Chew) 500 mg BID PRN PO HEARTBURN 03/13/17 19:00 03/13/17 22:57 Quetiapine Fumarate (SEROquel) 25 mg BID@,12 PO 03/17/17 12:00 03/23/17 10:58 Prednisone (Deltasone) 20 mg BID PO 03/21/17 09:00 03/23/17 10:59 Apixaban (Eliquis) 5 mg BID PO 03/22/17 09:30 03/23/17 10:58 Objective Remarks GENERAL: Elderly male, supine in bed, confused. On 2L O2 via NC SKIN: Warm and dry. HEAD: Normocephalic. EYES: No injection or drainage. NECK: Supple, trachea midline. CARDIOVASCULAR: Regular rate and rhythm RESPIRATORY: occasional rhonchi. GASTROINTESTINAL: Abdomen soft, non-tender, nondistended. EXTREMITIES: No cyanosis MUSCULOSKELETAL: Adequate muscle tone. NEUROLOGICAL: awake. normal speech. oriented x 0. Assessment/Plan Problem List: (1) Pulmonary emboli ICD Codes: I26.99 - Other pulmonary embolism without acute cor pulmonale Plan: 03/23: continue Eliquis. monitor CBC for bleeding. --V/Q scan--> intermediate to high probability) --CTA chest to confirm PE is pending. --recent GI workup showed no evidence of bleeding. (2) Bladder cancer ICD Codes: C67.9 - Malignant neoplasm of bladder, unspecified Status: Acute Plan: --s/p neoadjuvant chemo. --will need radical cystectomy but unfortunately is not stable enough at present. --needs repeat cystoscopy and TURBT by urology (3) Metabolic encephalopathy ICD Codes: G93.41 - Metabolic encephalopathy Status: Acute Plan: --unclear etiology --psych following. Attending Statement The exam, history, and the medical decision-making described in the above note were completed with the assistance of the mid-level provider. I reviewed and agree with the findings presented. I attest that I had a [id number] encounter with the patient on the same day, and personally performed and documented my assessment and findings in the medical record. Remains pleasently confuse. states why i am still here. no bleeding. Continue Eliquis. palliative team will meet with family tomorrow and make further decision. monitor cbc . Problem Qualifiers (1) Bladder cancer: Qualified Codes: C67.9 - Malignant neoplasm of bladder, unspecified Suha Logan Mar 23, 2017 12:12 Denny Dumont MD Mar 23, 2017 21:22
--- NOTE | 2017-03-23 13:37 | HHI.HCPN ---
Reason for visit a. To assist with evaluation and management of symptoms including: dyspnea, pain b. To assist medical decision maker(s) with: better understanding of current medical conditions; weighing benefits/burdens of medical treatment options; making medical treatment decisions. Subjective/Interval History Voicemail received from healthcare surrogate Donna prior to my arrival on unit. Requested family meeting Monday with palliative and medical attending. Spoke w CARMEN Thompson, and medical attending Dr Loredo- arranged for family meeting Monday at 1000 am. General review w Donna of my d/w Amadeo yesterday, pt condition, and code status. She indicates they wish to discuss code status further tomorrow as Amadeo may have additional questions. She reports she and Amadeo are working together in all decisions. VS stable. no new labs or imaging. eating 25-50% of meals. On NC. Still with some confusion, requiring restraints. Seen in room , no visitors present. He is alert, confused. He names [place] as place , but does not answer most other questions appropriately. He does name his son as Amadeo. Ask why he is here in the hospital he says " I'm a nut job". He is generally cooperative, follows simple commands. Ask if he is seeing or hearing things, he tells me not now but he was " a few hours ago". He at times appears to be grasping at the air, bed linens. Otherwise no distress. Of note this patient is known to palliative from recent admission 02/06 through 02/19 : At that time he was admitted for weakness, possible syncope. He had ongoing hallucinations. He had extensive workup per psychiatry, neurology, and he had ongoing delirium no clear etiology was identified. Workup essentially negative LP was considered however eventually symptoms started to improve and he did not receive LP. Advance Directives Health Care Surrogate: Copy in medical record Advance Directive Specifics Date completed: 02/08/17 Health Care Surrogate(s): Names friend Donna Chambers as primary, Julia Zavaleta as secondary Objective Vital Signs Date Time Temp Pulse Resp B/P (MAP) Pulse Ox O2 Delivery O2 Flow Rate FiO2 03/23/17 12:12 98.1 60 18 135/106 (116) 98 03/23/17 10:28 99 Nasal Cannula 2.00 03/23/17 08:00 97.5 62 18 172/73 (106) 99 03/23/17 04:30 97.6 69 20 129/60 (83) 95 03/23/17 02:55 Nasal Cannula 2.00 03/23/17 02:36 Nasal Cannula 2.00 03/23/17 00:15 98.4 64 19 130/64 (86) 96 03/22/17 21:55 Nasal Cannula 2.00 03/22/17 21:15 97.5 62 18 133/68 (89) 96 03/22/17 19:48 97.3 86 16 187/74 94 03/22/17 17:29 97.3 58 14 158/67 94 03/22/17 17:23 97 21 03/22/17 17:03 98.7 86 15 142/82 97 03/22/17 16:00 97.1 64 18 157/97 (117) Intake & Output 03/23/17 03/23/17 07:00 19:00 Intake Total 1615 ml Output Total 1100 ml Balance 515 ml Intake Oral 1200 ml Packed Cells 400 ml Blood Product IV Normal Saline Flush 15 ml Output Urine Total 1100 ml # Bowel Movements 0 Physical Exam CONSTITUTIONAL/GENERAL: This is an adequately nourished patient, in no apparent distress. TUBES/LINES/DRAINS: Peripheral IV upper extremity, nasal cannula O2, urinary catheter SKIN: No jaundice, rashes, or lesions. Few areas Ecchymoses on upper extremities. few abrasions RLE. Skin warm and dry. NECK: Trachea midline. Supple, nontender. No palpable thyroid enlargement or nodularity. CARDIOVASCULAR: Regular rate and rhythm without murmur. No JVD. Peripheral pulses symmetric. RESPIRATORY/CHEST: Symmetric, unlabored respirations. On 2 L nasal cannula. Clear to auscultation. Breath sounds equal bilaterally. GASTROINTESTINAL: Abdomen soft, non-tender, nondistended. No hepato-splenomegaly , or palpable masses. No guarding. Bowel sounds normoactive . MUSCULOSKELETAL: Extremities without clubbing, cyanosis, or edema. 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 No joint tenderness or effusion noted. NEUROLOGICAL: Awake and alert. oriented to self, [place], son. Pleasantly confused. Does follow simple commands. Moves all 4 extremities ( residual left AKA limb) PSYCHIATRIC: No obvious anxiety/depression. grasping at the air, linens. does state had hallucination earlier . Diagnostic Tests Laboratory Laboratory Tests Test 03/20/17 14:10 03/20/17 16:04 03/20/17 22:45 03/21/17 06:32 White Blood Count 13.5 TH/MM3 (4.0-11.0) 10.7 TH/MM3 (4.0-11.0) 8.9 TH/MM3 (4.0-11.0) Red Blood Count 2.94 MIL/MM3 (4.50-5.90) 2.82 MIL/MM3 (4.50-5.90) 2.92 MIL/MM3 (4.50-5.90) Hemoglobin 8.6 GM/DL (13.0-17.0) 8.7 GM/DL (13.0-17.0) 8.7 GM/DL (13.0-17.0) Hematocrit 26.7 % (39.0-51.0) 25.1 % (39.0-51.0) 25.5 % (39.0-51.0) Mean Corpuscular Volume 90.8 FL (80.0-100.0) 89.1 FL (80.0-100.0) 87.5 FL (80.0-100.0) Mean Corpuscular Hemoglobin 29.1 PG (27.0-34.0) 30.9 PG (27.0-34.0) 29.8 PG (27.0-34.0) Mean Corpuscular Hemoglobin Concent 32.1 % (32.0-36.0) 34.7 % (32.0-36.0) 34.0 % (32.0-36.0) Red Cell Distribution Width 17.3 % (11.6-17.2) 17.0 % (11.6-17.2) 16.6 % (11.6-17.2) Platelet Count 248 TH/MM3 (150-450) 244 TH/MM3 (150-450) 225 TH/MM3 (150-450) Mean Platelet Volume 9.2 FL (7.0-11.0) 9.4 FL (7.0-11.0) 8.9 FL (7.0-11.0) CBC Comment AUTO DIFF DIFF FINAL Differential Total Cells Counted 100 Neutrophils % (Manual) 92 % (16-70) Band Neutrophils % 2 % (0-6) Lymphocytes % 3 % (9-44) Monocytes % 3 % (0-8) Neutrophils # (Manual) 12.7 TH/MM3 (1.8-7.7) Differential Comment FINAL DIFF MANUAL Platelet Estimate NORMAL (NORMAL) Platelet Morphology Comment NORMAL (NORMAL) Ovalocytes 1+ (NORMAL) Huey Cells 2+ (NORMAL) Prothrombin Time 10.7 SEC (9.8-11.6) Prothromb Time International Ratio 1.1 RATIO Activated Partial Thromboplast Time 21.6 SEC (24.3-30.1) 22.8 SEC (24.3-30.1) 226.4 SEC (24.3-30.1) Neutrophils (%) (Auto) 83.7 % (16.0-70.0) Lymphocytes (%) (Auto) 8.9 % (9.0-44.0) Monocytes (%) (Auto) 7.2 % (0.0-8.0) Eosinophils (%) (Auto) 0.0 % (0.0-4.0) Basophils (%) (Auto) 0.2 % (0.0-2.0) Neutrophils # (Auto) 7.5 TH/MM3 (1.8-7.7) Lymphocytes # (Auto) 0.8 TH/MM3 (1.0-4.8) Monocytes # (Auto) 0.6 TH/MM3 (0-0.9) Eosinophils # (Auto) 0.0 TH/MM3 (0-0.4) Basophils # (Auto) 0.0 TH/MM3 (0-0.2) Blood Urea Nitrogen 34 MG/DL (7-18) Creatinine 1.28 MG/DL (0.60-1.30) Random Glucose 38 MG/DL (74-106) Calcium Level 7.6 MG/DL (8.5-10.1) Sodium Level 142 MEQ/L (136-145) Potassium Level 4.1 MEQ/L (3.5-5.1) Chloride Level 109 MEQ/L (98-107) Carbon Dioxide Level 25.1 MEQ/L (21.0-32.0) Anion Gap 8 MEQ/L (5-15) Estimat Glomerular Filtration Rate 55 ML/MIN (>89) Test 03/21/17 11:09 03/21/17 16:04 03/22/17 00:34 1/10/18 03:33 Activated Partial Thromboplast Time 97.2 SEC (24.3-30.1) 71.6 SEC (24.3-30.1) 232.0 SEC (24.3-30.1) 124.9 SEC (24.3-30.1) White Blood Count 8.8 TH/MM3 (4.0-11.0) Red Blood Count 2.96 MIL/MM3 (4.50-5.90) Hemoglobin 8.7 GM/DL (13.0-17.0) Hematocrit 25.7 % (39.0-51.0) Mean Corpuscular Volume 87.0 FL (80.0-100.0) Mean Corpuscular Hemoglobin 29.4 PG (27.0-34.0) Mean Corpuscular Hemoglobin Concent 33.9 % (32.0-36.0) Red Cell Distribution Width 16.9 % (11.6-17.2) Platelet Count 210 TH/MM3 (150-450) Mean Platelet Volume 8.6 FL (7.0-11.0) Neutrophils (%) (Auto) 88.7 % (16.0-70.0) Lymphocytes (%) (Auto) 5.3 % (9.0-44.0) Monocytes (%) (Auto) 5.8 % (0.0-8.0) Eosinophils (%) (Auto) 0.0 % (0.0-4.0) Basophils (%) (Auto) 0.2 % (0.0-2.0) Neutrophils # (Auto) 7.8 TH/MM3 (1.8-7.7) Lymphocytes # (Auto) 0.5 TH/MM3 (1.0-4.8) Monocytes # (Auto) 0.5 TH/MM3 (0-0.9) Eosinophils # (Auto) 0.0 TH/MM3 (0-0.4) Basophils # (Auto) 0.0 TH/MM3 (0-0.2) CBC Comment DIFF FINAL Differential Comment Blood Urea Nitrogen 39 MG/DL (7-18) Creatinine 1.31 MG/DL (0.60-1.30) Random Glucose 134 MG/DL (74-106) Total Protein 4.2 GM/DL (6.4-8.2) Calcium Level 7.4 MG/DL (8.5-10.1) Sodium Level 140 MEQ/L (136-145) Potassium Level 4.5 MEQ/L (3.5-5.1) Chloride Level 107 MEQ/L (98-107) Carbon Dioxide Level 25.8 MEQ/L (21.0-32.0) Anion Gap 7 MEQ/L (5-15) Estimat Glomerular Filtration Rate 53 ML/MIN (>89) Protein Corrected Calcium 9.1 MG/DL (8.5-10.1) Test 03/22/17 06:46 03/23/17 06:15 Activated Partial Thromboplast Time 50.9 SEC (24.3-30.1) Vancomycin Level Trough 11.8 MCG/ML (5.0-10.0) Result Diagram: 03/22/17 0333 03/22/17 0333 Microbiology Microbiology Date/Time Source Procedure Growth Status 03/04/17 17:04 Blood Peripheral Aerobic Blood Culture - Final NO GROWTH IN 5 DAYS Complete 03/04/17 17:04 Blood Peripheral Anaerobic Blood Culture - Final NO GROWTH IN 5 DAYS Complete 03/11/17 03:00 Stool Stool Stool Occult Blood ([facility]) - Final HEMOCCULT POSITIVE Complete 03/04/17 20:50 Nasal Washing Influenza Types A,B Antigen ([facility]) - Final NEGATIVE FOR FLU A AND B ANTIGEN.... Complete 03/11/17 09:42 Urine Clean Catch Urine Culture - Final NO GROWTH IN 48 HOURS. Complete 03/05/17 03:35 Abscess Leg Gram Stain - Final Complete 03/05/17 03:35 Wound Culture - Final Staphylococcus Aureus Complete Imaging Last Impressions CT Angiography 03/21/17 0000 Signed Impressions: Service Date/Time: Tuesday, March 21, 2017 14:02 - CONCLUSION: 1. Bilateral pulmonary emboli. 2. Small bilateral pleural effusions right greater than left with consolidation in the right posterior lung base. Clemente Alcala MD Lung Scan-V Nuclear Medicine 03/20/17 0000 Signed Impressions: Service Date/Time: Monday, March 20, 2017 11:15 - CONCLUSION: Intermediate to high probability of pulmonary embolism. Correlation suggested. Bennett Ibarra MD FACR Chest X-Ray 03/20/17 0000 Signed Impressions: Service Date/Time: Monday, March 20, 2017 13:47 - CONCLUSION: Loculated cardiomegaly without failure or infiltrate Bennett Ibarra MD FACR Head CT 03/18/17 0000 Signed Impressions: Service Date/Time: Saturday, March 18, 2017 11:31 - CONCLUSION: 1. 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 2. Diffuse cerebral atrophy. 3. No acute infarct, acute hemorrhage, mass effect or extra-axial fluid collections. 4. Fluid is noted within the right mastoid air cells. Mejia Davidson MD Venous Access Device Injection 03/14/17 0000 Signed Impressions: Service Date/Time: Tuesday, March 14, 2017 12:06 - CONCLUSION: 1. The port is in excellent position and flushes easily. 2. Contrast could not be withdrawn from the port though no definite fibrin sheath is evident around the catheter. The catheter was locked with 4 mg of TPA. Jose J Ibarra MD Brain MRI 03/05/17 0000 Signed Impressions: Service Date/Time: Sunday, March 05, 2017 11:28 - CONCLUSION: Moderate motion artifact. Negative for acute ischemic event. Atrophy with periventricular changes. Bennett Ibarra MD FACR Abdomen/Pelvis CT 03/04/17 1742 Signed Impressions: Service Date/Time: Saturday, March 04, 2017 18:28 - CONCLUSION: 1. Bilateral pleural effusions small to moderate in size. 2. No acute findings in the abdomen and pelvis. Corby Melendez MD Assessment and Plan Disease Oriented Problem List: (1) Pulmonary emboli (2) Bladder cancer (3) Catheter-associated urinary tract infection (4) Metabolic encephalopathy (5) GI bleed not requiring more than 4 units of blood in 24 hours, ICU, or surgery (6) Delirium (7) insulin-dependent diabetes (8) Hypertension (9) glaucoma (10) remote history of CVA (11) history of prostate cancer, s/p radiation Symptom Scale: (1) weakness 0-10 Scale: Unable to quantify (2) pain 0-10 Scale: Unable to quantify Pertinent Non-Medical Issues (Per prior palliative care interactions ) =Psychosocial:Born and raised in [place], moved to [place] a few years ago. He lives alone.He has been 3 times, a few years ago from third . He has one child, a son Amadeo Valente living in [place]. 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 =Spiritual: The patient has a Spiritism background, and he has attended a local tenriism intermittently. He is not affiliated with any particular tenriism or clergy at this time. He is open to preschool head teacher visits. =Legal: Patient has had ongoing episodes of confusion and intermittent hallucinations since last January. During hospitalizations mental status has fluctuated, at times he has had some awareness of his malignancy, plans for surgery and the gravity of his conditions. Given his fluctuating mental status patient may not have total capacity for making decisions , recommend shared decision making. He has previously completed a healthcare surrogate designating his close friend and retired nurse Donna Chambers is his [facility]. =Ethical issues impacting care: No ethical issues identified . Important Contacts Friend and HEALTHCARE SURROGATE: Donna Chambers [phone] Son: Amadeo Valente [phone] [id number] Julia Zavaleta (alternate healthcare surrogate)[phone] . Prognosis The patient's overall prognosis is somewhat guarded in the long-term. He had been in the midst of aggressive treatment for his invasive bladder cancer, and has had worsening weakness, not helped by his ongoing confusion and delirium, onset January 2017. Etiology not clear at conclusion of last prolonged hospitalization for the same, patient with no history of psychiatric problems. Oncology felt likely secondary to metabolic encephalopathy. If his confusion and inability to participate in activities needed to improve/maintain strength continued, and poor nutrition 2/2 continues he will likely experience continued decline and debility. it is not clear that he will ever get well enough to obtain additional treatment for his bladder cancer. He now has new findings of bilateral pulmonary embolus which will further complicate his medical course. . Plan * Legal decision maker: Patient has had ongoing episodes of confusion and intermittent hallucinations since last January. During hospitalizations mental status has fluctuated, at times he has had some awareness of his malignancy, plans for surgery and the gravity of his conditions. Given his fluctuating mental status patient may not have total capacity for making decisions , recommend shared decision making. He has previously completed a healthcare surrogate naming his close friend and retired nurse Donna Chambers is his [facility]. * Goals: Plan for family meeting w son, [facility], medical attending Monday03/24/17 at 1000 to further discuss conditions/prognosis/ goals. * CODE STATUS: Full code by default, prior admission patient was DNR * SYMPTOMS: ----Delirium --fluctuating mental status since admission January 2017. Extensive workup completed at that time. No clear etiology at that time. Multiple psychiatric medications and adjustments. Long period Without opiates or benzodiazepines. Complete workup short of LP was done all with negative findings. ??? Dementia/ CT brain = diffuse cerebral atrophy --Weakness/debility- patient continues to be confused and with inability to fully participate in wellness activities; likely his weakness and decline will continue. Would benefit from maximized PT, OT if neurological status improves and he is able to participate. -- pain-endorses some pain sometimes with breathing/some intermittent shortness of breath,sometimes back pain, unable to qualify/quantify. + PE, + prolonged bedbound status. has prn Tylenol available. Cautious use of opiates given hx delirium, AMS unknown etiology * Palliative care will continue to follow during hospital course as condition evolves, to assist patient/decision-maker with understanding of medical conditions, weighing benefits/burdens of treatment options, for clarification of goals of treatment. Additionally will assist with any symptoms of palliative concern . Attestation To help prompt me to consider important information that might be impacting today's encounter and assessment, information from prior notes written by myself or my colleagues may have been "brought forward" into today's note. My signature on this note, however, is an attestation that I personally performed the exam, history, and/or decision-making noted today, and, unless otherwise indicated, the interactions with patient, family, and staff as well as the review of records all occurred today. I also attest that the listed assessment and stated plan reflect my best clinical judgment today based on the combination of historical information, prior notes, and today's exam/ interactions. When time spent is documented, it refers only to time spent today by the signer, or if indicated, combined time spent today by collaborating physician/nurse practitioner. Natalie Sanchez Mar 23, 2017 13:37
[2017-03-23 15:15] LABS: ALBUMIN 1.8 GM/DL (3.4-5.0); ALT (GPT) 52 U/L (12-78); AST (GOT) 39 U/L (15-37); BLOOD UREA NITROGEN 35 MG/DL (7-18); CALCIUM 7.5 MG/DL (8.5-10.1); CHLORIDE 110 MEQ/L (98-107); GLOMERULAR FILTRATION RATE 42 ML/MIN (>89); GLUCOSE,RANDOM 78 MG/DL (74-106); SODIUM (NA) 141 MEQ/L (136-145)
[2017-03-23 15:18] LABS: ALKALINE PHOSPHATASE 72 U/L (45-117); TOTAL BILIRUBIN ADULT 0.4 MG/DL (0.2-1.0); TOTAL PROTEIN 4.3 GM/DL (6.4-8.2)
[2017-03-23 15:21] LABS: AUTOMATED NEUTROPHIL # 5.9 TH/MM3 (1.8-7.7); BASOPHIL % 0.2 % (0.0-2.0); EOSINOPHIL % 0.1 % (0.0-4.0); HEMATOCRIT 28.9 % (39.0-51.0); LYMPH % 5.3 % (9.0-44.0); LYMPHOCYTE # 0.4 TH/MM3 (1.0-4.8); MEAN CELL VOLUME 88.3 FL (80.0-100.0); MEAN CORPUSCULAR HEMOGLOBIN 30.6 PG (27.0-34.0); MEAN CORPUSCULAR HGB CONC 34.6 % (32.0-36.0); MEAN PLATELET VOLUME 9.1 FL (7.0-11.0); MONO % 5.4 % (0.0-8.0); MONOCYTE # 0.4 TH/MM3 (0-0.9); PLATELET COUNT 222 TH/MM3 (150-450); RED BLOOD COUNT 3.27 MIL/MM3 (4.50-5.90); RED CELL DISTRIBUTION WIDTH 16.3 % (11.6-17.2); WHITE BLOOD COUNT 6.6 TH/MM3 (4.0-11.0)
[2017-03-23] MEDS ORDERED: INSULIN DETEMIR 100 UNITS/ML VIAL SQ SCH (21:00)
[2017-03-23] MEDS: LATANOPROST 0.005% OPHT SOLN 2.5 ML BTL RIGHT EYE SCH (23:41)
[2017-03-24] VITALS (7 sets, daily range): BP systolic 121–172; BP diastolic 61–89; PULSE 57–66; RESP 17–20; TEMP 97.2–98.6; O2SAT 95–100
[2017-03-24 05:23] LABS: BICARBONATE 23.8 MEQ/L (21.0-32.0); CALCIUM 7.5 MG/DL (8.5-10.1); CREATININE 1.56 MG/DL (0.60-1.30)
[2017-03-24 06:55] LABS: AUTOMATED NEUTROPHIL # 7.3 TH/MM3 (1.8-7.7); BASOPHIL % 0.2 % (0.0-2.0); HEMATOCRIT 29.1 % (39.0-51.0); HEMOGLOBIN 9.9 GM/DL (13.0-17.0); LYMPH % 5.1 % (9.0-44.0); LYMPHOCYTE # 0.4 TH/MM3 (1.0-4.8); MEAN CELL VOLUME 88.4 FL (80.0-100.0); MEAN CORPUSCULAR HEMOGLOBIN 30.1 PG (27.0-34.0); MEAN CORPUSCULAR HGB CONC 34.1 % (32.0-36.0); MEAN PLATELET VOLUME 9.3 FL (7.0-11.0); MONO % 3.9 % (0.0-8.0); MONOCYTE # 0.3 TH/MM3 (0-0.9); NEUT % 90.8 % (16.0-70.0); PLATELET COUNT 182 TH/MM3 (150-450); RED BLOOD COUNT 3.29 MIL/MM3 (4.50-5.90); RED CELL DISTRIBUTION WIDTH 16.2 % (11.6-17.2); WHITE BLOOD COUNT 8.1 TH/MM3 (4.0-11.0)
[2017-03-24] MEDS: INSULIN ASPART SUPPLEMENTAL SCALE SQ SCH ×4 (08:00→21:00)
[2017-03-24] MEDS ORDERED: INSULIN DETEMIR 100 UNITS/ML VIAL SQ SCH (09:00)
[2017-03-24] MEDS: PANTOPRAZOLE SOD 40 MG DELAYED RELEASE TAB PO SCH (09:31)
[2017-03-24] MEDS: QUEtiapine FUMARATE 25 MG TAB PO SCH (09:31)
[2017-03-24] MEDS: METOPROLOL TARTRATE 50 MG TAB PO SCH ×2 (09:31→22:36)
[2017-03-24] MEDS: ATORVASTATIN 20 MG TAB PO SCH (09:31)
[2017-03-24] MEDS: LOSARTAN 25 MG TAB PO SCH (09:31)
[2017-03-24] MEDS: APIXABAN 5 MG TABLET PO SCH ×2 (09:31→22:36)
[2017-03-24] MEDS: predniSONE 20 MG TAB PO SCH ×2 (09:31→22:36)
[2017-03-24] MEDS: TAMSULOSIN HCL 0.4 MG CAP PO SCH (09:31)
[2017-03-24] MEDS: FUROSEMIDE 20 MG/2 ML VIAL IV PUSH SCH ×2 (09:32→18:27)
[2017-03-24] MEDS: POTASSIUM CHLORIDE 10 MEQ CAP PO SCH (09:32)
[2017-03-24] MEDS: SODIUM CHLORIDE 0.9% FLUSH 10 ML FLUSH IV FLUSH SCH ×2 (09:40→22:37)
[2017-03-24] MEDS: DORZOLAMIDE 2% OPTH SOLN 200 DROP/10 ML BTLO RIGHT EYE SCH ×2 (09:41→22:36)
--- NOTE | 2017-03-24 10:01 | HHI.HCPN ---
Reason for visit a. To assist with evaluation and management of symptoms including: dyspnea, pain b. To assist medical decision maker(s) with: better understanding of current medical conditions; weighing benefits/burdens of medical treatment options; making medical treatment decisions. Subjective/Interval History Pt seen today for planned follow up meeting w family/decision makers and medical attending, for discussion of conditions, prognosis, goals. VS stable. Hypoglycemia (BG 40s) insulin d/c. Pt w poor oral intake (likely 2/2 AMS). CBC stable/ near pt baseline. BUN and creatinine remains slightly elevated 37/1.56. Pt examined in room, Dr Loredo also examining. He is lethargic, arouses some but does not open eyes even when verbalizing. Does not follow simple commands. Answers some questions with completely inappropriate answers, otherwise doesn't answer questions. Does move all 4 extremities spont. No apparent distress. Discussed with medical attending, psychiatry, heme oncology. Of note this patient is known to palliative from recent admission 02/06 through 02/19 : At that time he was admitted for weakness, possible syncope. He had ongoing hallucinations. He had extensive workup per psychiatry, neurology, and he had ongoing delirium no clear etiology was identified. Workup essentially negative LP was considered however eventually symptoms started to improve and he did not receive LP. . Family/friend interactions Dual meeting with , met with son, healthcare proxy friend Donna, at length approximately 45 minutes. Discussion included: --Review of patient most recent hospitalization workup at that time and eventually discharged to nursing facility --Review of patient general medical history leading up to most recent hospitalizations -- Review of current diagnoses, diagnostics thus far, treatments in place, and limited options of maximized supportive treatment going forward, overall prognosis given multiple medical conditions, patient still requiring restraints , with altered mental status/ fluctuating mental status, and poor oral intake. Patient high risk for ongoing decline and further complications, additionally if oral intake continues to be poor in the coming days he will require feeding tube NG versus PEG. Family is certain that patient would not want a feeding tube and would not want artificial life support or resuscitation. --CODE STATUS son and proxy elects DNR; community DNR also completed. --Tentative plan to maximize medical therapy in the coming days, monitoring for any signs of improvement, and early next week Monday/ Monday consider transition to comfort focus with hospice if patient is not with significant improvement, if no further treatments to further offer clinical improvement, NO feeding tube. . Advance Directives Health Care Surrogate: Copy in medical record Advance Directive Specifics Date completed: 02/08/17 Health Care Surrogate(s): Names friend Donna Chambers as primary, Julia Zavaleta as secondary Objective Vital Signs Date Time Temp Pulse Resp B/P (MAP) Pulse Ox O2 Delivery O2 Flow Rate FiO2 03/24/17 08:39 97.2 66 18 169/76 (107) 100 03/24/17 04:00 97.5 58 20 172/76 (108) 96 03/24/17 00:00 98.0 61 20 164/74 (104) 95 03/23/17 23:30 Nasal Cannula 2.00 03/23/17 21:27 98.1 62 19 128/74 (92) 94 03/23/17 17:26 93 Nasal Cannula 2.00 03/23/17 16:13 97.3 59 18 149/91 (110) 93 03/23/17 14:00 Nasal Cannula 2.00 03/23/17 12:12 98.1 60 18 135/106 (116) 98 03/23/17 10:28 99 Nasal Cannula 2.00 Intake & Output 03/24/17 03/24/17 07:00 19:00 Intake Total 220 ml Output Total 1300 ml Balance -1080 ml Intake Oral 220 ml Output Urine Total 1300 ml Physical Exam CONSTITUTIONAL/GENERAL: This is an adequately nourished patient, in no apparent distress, lethargic, confused TUBES/LINES/DRAINS: Peripheral IV upper extremity, nasal cannula O2, urinary catheter SKIN: No jaundice, rashes, or lesions. Few areas Ecchymoses on upper extremities, + dark ecchymosis right subclavian chest region. few abrasions RLE. Skin warm and dry. NECK: Trachea midline. Supple, nontender. No palpable thyroid enlargement or nodularity. CARDIOVASCULAR: Regular rate and rhythm without murmur. No JVD. Peripheral pulses symmetric. RESPIRATORY/CHEST: Symmetric, unlabored respirations. On 2 L nasal cannula. Clear to auscultation. Breath sounds equal bilaterally. GASTROINTESTINAL: Abdomen soft, non-tender, nondistended. No hepato-splenomegaly , or palpable masses. No guarding. Bowel sounds normoactive . MUSCULOSKELETAL: Extremities without clubbing, cyanosis, or edema. 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 No joint tenderness or effusion noted. NEUROLOGICAL: Lethargic. Does not open eyes. Does not participate in neurologic exam. Answers some questions with completely unrelated answers. He used. Does not follow simple commands. Observe moving all 4 extremities ( residual left AKA limb) PSYCHIATRIC: No obvious anxiety/depression. Confused. Diagnostic Tests Laboratory Laboratory Tests Test 03/21/17 11:09 03/21/17 16:04 03/22/17 00:34 03/22/17 03:33 Activated Partial Thromboplast Time 97.2 SEC (24.3-30.1) 71.6 SEC (24.3-30.1) 232.0 SEC (24.3-30.1) 124.9 SEC (24.3-30.1) White Blood Count 8.8 TH/MM3 (4.0-11.0) Red Blood Count 2.96 MIL/MM3 (4.50-5.90) Hemoglobin 8.7 GM/DL (13.0-17.0) Hematocrit 25.7 % (39.0-51.0) Mean Corpuscular Volume 87.0 FL (80.0-100.0) Mean Corpuscular Hemoglobin 29.4 PG (27.0-34.0) Mean Corpuscular Hemoglobin Concent 33.9 % (32.0-36.0) Red Cell Distribution Width 16.9 % (11.6-17.2) Platelet Count 210 TH/MM3 (150-450) Mean Platelet Volume 8.6 FL (7.0-11.0) Neutrophils (%) (Auto) 88.7 % (16.0-70.0) Lymphocytes (%) (Auto) 5.3 % (9.0-44.0) Monocytes (%) (Auto) 5.8 % (0.0-8.0) Eosinophils (%) (Auto) 0.0 % (0.0-4.0) Basophils (%) (Auto) 0.2 % (0.0-2.0) Neutrophils # (Auto) 7.8 TH/MM3 (1.8-7.7) Lymphocytes # (Auto) 0.5 TH/MM3 (1.0-4.8) Monocytes # (Auto) 0.5 TH/MM3 (0-0.9) Eosinophils # (Auto) 0.0 TH/MM3 (0-0.4) Basophils # (Auto) 0.0 TH/MM3 (0-0.2) CBC Comment DIFF FINAL Differential Comment Blood Urea Nitrogen 39 MG/DL (7-18) Creatinine 1.31 MG/DL (0.60-1.30) Random Glucose 134 MG/DL (74-106) Total Protein 4.2 GM/DL (6.4-8.2) Calcium Level 7.4 MG/DL (8.5-10.1) Sodium Level 140 MEQ/L (136-145) Potassium Level 4.5 MEQ/L (3.5-5.1) Chloride Level 107 MEQ/L (98-107) Carbon Dioxide Level 25.8 MEQ/L (21.0-32.0) Anion Gap 7 MEQ/L (5-15) Estimat Glomerular Filtration Rate 53 ML/MIN (>89) Protein Corrected Calcium 9.1 MG/DL (8.5-10.1) Test 03/22/17 06:46 03/23/17 06:15 03/23/17 14:01 03/24/17 04:42 Activated Partial Thromboplast Time 50.9 SEC (24.3-30.1) Vancomycin Level Trough 11.8 MCG/ML (5.0-10.0) White Blood Count 6.6 TH/MM3 (4.0-11.0) Red Blood Count 3.27 MIL/MM3 (4.50-5.90) Hemoglobin 10.0 GM/DL (13.0-17.0) Hematocrit 28.9 % (39.0-51.0) Mean Corpuscular Volume 88.3 FL (80.0-100.0) Mean Corpuscular Hemoglobin 30.6 PG (27.0-34.0) Mean Corpuscular Hemoglobin Concent 34.6 % (32.0-36.0) Red Cell Distribution Width 16.3 % (11.6-17.2) Platelet Count 222 TH/MM3 (150-450) Mean Platelet Volume 9.1 FL (7.0-11.0) Neutrophils (%) (Auto) 89.0 % (16.0-70.0) Lymphocytes (%) (Auto) 5.3 % (9.0-44.0) Monocytes (%) (Auto) 5.4 % (0.0-8.0) Eosinophils (%) (Auto) 0.1 % (0.0-4.0) Basophils (%) (Auto) 0.2 % (0.0-2.0) Neutrophils # (Auto) 5.9 TH/MM3 (1.8-7.7) Lymphocytes # (Auto) 0.4 TH/MM3 (1.0-4.8) Monocytes # (Auto) 0.4 TH/MM3 (0-0.9) Eosinophils # (Auto) 0.0 TH/MM3 (0-0.4) Basophils # (Auto) 0.0 TH/MM3 (0-0.2) CBC Comment DIFF FINAL Differential Comment Blood Urea Nitrogen 35 MG/DL (7-18) 37 MG/DL (7-18) Creatinine 1.60 MG/DL (0.60-1.30) 1.56 MG/DL (0.60-1.30) Random Glucose 78 MG/DL (74-106) 52 MG/DL (74-106) Total Protein 4.3 GM/DL (6.4-8.2) Albumin 1.8 GM/DL (3.4-5.0) Calcium Level 7.5 MG/DL (8.5-10.1) 7.5 MG/DL (8.5-10.1) Alkaline Phosphatase 72 U/L (45-117) Aspartate Amino Transf (AST/SGOT) 39 U/L (15-37) Alanine Aminotransferase (ALT/SGPT) 52 U/L (12-78) Total Bilirubin 0.4 MG/DL (0.2-1.0) Sodium Level 141 MEQ/L (136-145) 138 MEQ/L (136-145) Potassium Level 4.5 MEQ/L (3.5-5.1) 4.3 MEQ/L (3.5-5.1) Chloride Level 110 MEQ/L (98-107) 108 MEQ/L (98-107) Carbon Dioxide Level 23.0 MEQ/L (21.0-32.0) 23.8 MEQ/L (21.0-32.0) Anion Gap 8 MEQ/L (5-15) 6 MEQ/L (5-15) Estimat Glomerular Filtration Rate 42 ML/MIN (>89) 44 ML/MIN (>89) Test 03/24/17 06:03 White Blood Count 8.1 TH/MM3 (4.0-11.0) Red Blood Count 3.29 MIL/MM3 (4.50-5.90) Hemoglobin 9.9 GM/DL (13.0-17.0) Hematocrit 29.1 % (39.0-51.0) Mean Corpuscular Volume 88.4 FL (80.0-100.0) Mean Corpuscular Hemoglobin 30.1 PG (27.0-34.0) Mean Corpuscular Hemoglobin Concent 34.1 % (32.0-36.0) Red Cell Distribution Width 16.2 % (11.6-17.2) Platelet Count 182 TH/MM3 (150-450) Mean Platelet Volume 9.3 FL (7.0-11.0) Neutrophils (%) (Auto) 90.8 % (16.0-70.0) Lymphocytes (%) (Auto) 5.1 % (9.0-44.0) Monocytes (%) (Auto) 3.9 % (0.0-8.0) Eosinophils (%) (Auto) 0.0 % (0.0-4.0) Basophils (%) (Auto) 0.2 % (0.0-2.0) Neutrophils # (Auto) 7.3 TH/MM3 (1.8-7.7) Lymphocytes # (Auto) 0.4 TH/MM3 (1.0-4.8) Monocytes # (Auto) 0.3 TH/MM3 (0-0.9) Eosinophils # (Auto) 0.0 TH/MM3 (0-0.4) Basophils # (Auto) 0.0 TH/MM3 (0-0.2) CBC Comment DIFF FINAL Differential Comment Result Diagram: 03/24/17 0603 03/24/17 0442 Microbiology Microbiology Date/Time Source Procedure Growth Status 03/04/17 17:04 Blood Peripheral Aerobic Blood Culture - Final NO GROWTH IN 5 DAYS Complete 03/04/17 17:04 Blood Peripheral Anaerobic Blood Culture - Final NO GROWTH IN 5 DAYS Complete 03/11/17 03:00 Stool Stool Stool Occult Blood ([facility]) - Final HEMOCCULT POSITIVE Complete 03/04/17 20:50 Nasal Washing Influenza Types A,B Antigen ([facility]) - Final NEGATIVE FOR FLU A AND B ANTIGEN.... Complete 03/11/17 09:42 Urine Clean Catch Urine Culture - Final NO GROWTH IN 48 HOURS. Complete 03/05/17 03:35 Abscess Leg Gram Stain - Final Complete 03/05/17 03:35 Wound Culture - Final Staphylococcus Aureus Complete Imaging Last Impressions CT Angiography 03/21/17 0000 Signed Impressions: Service Date/Time: Tuesday, March 21, 2017 14:02 - CONCLUSION: 1. Bilateral pulmonary emboli. 2. Small bilateral pleural effusions right greater than left with consolidation in the right posterior lung base. Clemente Alcala MD Lung Scan-V Nuclear Medicine 03/20/17 0000 Signed Impressions: Service Date/Time: Monday, March 20, 2017 11:15 - CONCLUSION: Intermediate to high probability of pulmonary embolism. Correlation suggested. Bennett Ibarra MD FACR Chest X-Ray 03/20/17 0000 Signed Impressions: Service Date/Time: Monday, March 20, 2017 13:47 - CONCLUSION: Loculated cardiomegaly without failure or infiltrate Bennett Ibarra MD FACR Head CT 03/18/17 0000 Signed Impressions: Service Date/Time: Saturday, March 18, 2017 11:31 - CONCLUSION: 1. 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 2. Diffuse cerebral atrophy. 3. No acute infarct, acute hemorrhage, mass effect or extra-axial fluid collections. 4. Fluid is noted within the right mastoid air cells. Mejia Davidson MD Venous Access Device Injection 03/14/17 0000 Signed Impressions: Service Date/Time: Tuesday, March 14, 2017 12:06 - CONCLUSION: 1. The port is in excellent position and flushes easily. 2. Contrast could not be withdrawn from the port though no definite fibrin sheath is evident around the catheter. The catheter was locked with 4 mg of TPA. Jose J Ibarra MD Brain MRI 03/05/17 0000 Signed Impressions: Service Date/Time: Sunday, March 05, 2017 11:28 - CONCLUSION: Moderate motion artifact. Negative for acute ischemic event. Atrophy with periventricular changes. Bennett Ibarra MD FACR Abdomen/Pelvis CT 03/04/17 3562 Signed Impressions: Service Date/Time: Saturday, March 04, 2017 18:28 - CONCLUSION: 1. Bilateral pleural effusions small to moderate in size. 2. No acute findings in the abdomen and pelvis. Corby Melendez MD Assessment and Plan Disease Oriented Problem List: (1) Pulmonary emboli (2) Bladder cancer (3) Catheter-associated urinary tract infection (4) Metabolic encephalopathy (5) GI bleed not requiring more than 4 units of blood in 24 hours, ICU, or surgery (6) Delirium (7) insulin-dependent diabetes (8) Hypertension (9) glaucoma (10) remote history of CVA (11) history of prostate cancer, s/p radiation Symptom Scale: (1) weakness 0-10 Scale: Unable to quantify (2) pain 0-10 Scale: Unable to quantify Pertinent Non-Medical Issues (Per prior palliative care interactions ) =Psychosocial:Born and raised in [place], moved to [place] a few years ago. He lives alone.He has been 3 times, a few years ago from third . He has one child, a son Amadeo Valente living in [place]. 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 =Spiritual: The patient has a Sabianism background, and he has attended a local jew intermittently. He is not affiliated with any particular jew or clergy at this time. He is open to parts analyst visits. =Legal: Patient has had ongoing episodes of confusion and intermittent hallucinations since last January. During hospitalizations mental status has fluctuated, at times he has had some awareness of his malignancy, plans for surgery and the gravity of his conditions. Given his fluctuating mental status patient may not have total capacity for making decisions , recommend shared decision making. He has previously completed a healthcare surrogate designating his close friend and retired nurse Donna Chambers is his HCS. =Ethical issues impacting care: No ethical issues identified . Important Contacts Friend and HEALTHCARE SURROGATE: Donna Chambers [phone] Son: Amadeo Valente [phone] [id number] Julia Zavaleta (alternate healthcare surrogate)[phone] . Prognosis The patient's overall prognosis is somewhat guarded in the long-term. He had been in the midst of aggressive treatment for his invasive bladder cancer, and has had worsening weakness, not helped by his ongoing confusion and delirium, onset January 2017. Etiology not clear at conclusion of last prolonged hospitalization for the same, patient with no history of psychiatric problems. Oncology felt likely secondary to metabolic encephalopathy. If his confusion and inability to participate in activities needed to improve/maintain strength continued, and poor nutrition 2/2 continues he will likely experience continued decline and debility. it is not clear that he will ever get well enough to obtain additional treatment for his bladder cancer. He now has new findings of bilateral pulmonary embolus which will further complicate his medical course. . Code Status: No Code Plan * Legal decision maker: Patient has had ongoing episodes of confusion and intermittent hallucinations since last January. During hospitalizations mental status has fluctuated, at times he has had some awareness of his malignancy, plans for surgery and the gravity of his conditions. Given his fluctuating mental status patient may not have total capacity for making decisions , recommend shared decision making. He has previously completed a healthcare surrogate naming his close friend and retired nurse Donna Chambers is his HCS. * Goals: Met with family, proxy at length today 03/24:Tentative plan to maximize medical therapy in the coming days, monitoring for any signs of improvement, and early next week Monday/ Monday consider transition to comfort focus with hospice if patient is not with significant improvement, if no further treatments to further offer clinical improvement, NO feeding tube. * CODE STATUS: DNR * SYMPTOMS: ----Delirium --fluctuating mental status since admission January 2017. Extensive workup completed at that time. No clear etiology at that time. Multiple psychiatric medications and adjustments. Long period Without opiates or benzodiazepines. Complete workup short of LP was done all with negative findings. ??? Dementia/ CT brain = diffuse cerebral atrophy --Weakness/debility- patient continues to be confused and with inability to fully participate in wellness activities; likely his weakness and decline will continue. Would benefit from maximized PT, OT if neurological status improves and he is able to participate. -- pain-endorses some pain sometimes with breathing/some intermittent shortness of breath,sometimes back pain, unable to qualify/quantify. + PE, + prolonged bedbound status. has prn Tylenol available. Cautious use of opiates given hx delirium, AMS unknown etiology * Palliative care will continue to follow during hospital course as condition evolves, to assist patient/decision-maker with understanding of medical conditions, weighing benefits/burdens of treatment options, for clarification of goals of treatment. Additionally will assist with any symptoms of palliative concern . Attestation To help prompt me to consider important information that might be impacting today's encounter and assessment, information from prior notes written by myself or my colleagues may have been "brought forward" into today's note. My signature on this note, however, is an attestation that I personally performed the exam, history, and/or decision-making noted today, and, unless otherwise indicated, the interactions with patient, family, and staff as well as the review of records all occurred today. I also attest that the listed assessment and stated plan reflect my best clinical judgment today based on the combination of historical information, prior notes, and today's exam/ interactions. When time spent is documented, it refers only to time spent today by the signer, or if indicated, combined time spent today by collaborating physician/nurse practitioner. Natalie Sanchez Mar 24, 2017 10:01
--- NOTE | 2017-03-24 11:16 | HHI.PR ---
Objective Vitals Vital Signs Date Time Temp Pulse Resp B/P (MAP) Pulse Ox O2 Delivery O2 Flow Rate FiO2 03/24/17 10:31 Nasal Cannula 2.00 03/24/17 08:39 97.2 66 18 169/76 (107) 100 03/24/17 04:00 97.5 58 20 172/76 (108) 96 03/24/17 00:00 98.0 61 20 164/74 (104) 95 03/23/17 23:30 Nasal Cannula 2.00 03/23/17 21:27 98.1 62 19 128/74 (92) 94 03/23/17 17:26 93 Nasal Cannula 2.00 03/23/17 16:13 97.3 59 18 149/91 (110) 93 03/23/17 14:00 Nasal Cannula 2.00 03/23/17 12:12 98.1 60 18 135/106 (116) 98 I/O 03/23/17 03/23/17 03/23/17 03/24/17 03/24/17 03/24/17 07:00 15:00 23:00 07:00 15:00 23:00 Intake Total 400 ml 180 ml 220 ml Output Total 700 ml 1000 ml 1300 ml Balance -300 ml -820 ml -1080 ml Intake Oral 400 ml 180 ml 220 ml Output Urine Total 700 ml 1000 ml 1300 ml # Bowel Movements 0 Result Diagram: 03/24/17 0603 03/24/17 0442 Objective Remarks General: Elderly male in no acute distress. In soft restraints. Heart: Regular rate and rhythm. No murmur. Lungs: Bibasilar crackles are noted. Breathing is nonlabored. Abdomen: Soft, nontender, nondistended. Extremities: 1+ right lower extremity edema. Left below-knee amputation. Psych: Awake. Answers questions. Confused. Procedures None A/P Problem List: (1) Catheter-associated urinary tract infection ICD Code: T83.511A - Infection and inflammatory reaction due to indwelling urethral catheter, initial encounter; N39.0 - Urinary tract infection, site not specified Status: Acute (2) Metabolic encephalopathy ICD Code: G93.41 - Metabolic encephalopathy Status: Acute Assessment and Plan 1. Acute metabolic encephalopathy: Likely secondary to hypoglycemia, hypoxia, sedating medications. Ativan has been discontinued. EEG shows encephalopathy. CT of the head is unremarkable. Appreciate psychiatry recommendations. Discussed with Dr. Cuevas. Patient is more confused today. 2. Pulmonary embolus: VQ scan shows intermediate to high probability of pulmonary embolism. CT pulmonary angiogram confirms PE. Appreciate pulmonology recommendations. Heparin drip discontinued. Continue Eliquis. 3. Possible healthcare acquired pneumonia: Continue antibiotics, oxygen, steroids. Taper steroids slowly. 4. Pyuria: Possibly epididymitis. Switched from Rocephin to Bactrim. Caballero catheter in place. 5. Urinary retention: Caballero catheter in place. Appreciate urology recommendations. Change Caballero catheter monthly. 6. History of bladder cancer: Appreciate oncology, urology recommendations. 7. Insulin-dependent diabetes mellitus: Hold Levemir due to hypoglycemia. Patient with poor oral intake. Monitor Accu-Cheks and cover with sliding scale insulin. 8. Hypertension: Continue home medications. 9. Hyperlipidemia: Continue home medications. 10. Agitation: Appreciate psychiatry recommendations. 11. Generalized weakness: Continue PT/OT. 12. GI bleed: Status post EGD/colonoscopy 03/16/16. Appreciate GI recommendations. Monitor H&H. No active bleeding noted. Monitor closely while on anticoagulation. H/H stable. 13. DVT prophylaxis: SCDs. 14. Appreciate palliative care assistance. Family meeting held this morning with patient's health care surrogate (Donna Reyes), patient's son (Amadeo Valente), and Palliative Care (Natalie Sanchez). We discussed at length the patient's prognosis. We discussed workup that has been done and recommendations from specialists. Family/HCS request DNR status. They state that the patient does not want feeding tubes. The family agrees that if he does not improve ability to eat and his nutritional status continues to deteriorate, that he would want comfort care measures. The plan at this time is to continue current management until early next week (Monday/Monday), when decision will need to be made about patient's need for tube feeding. If he would require tube feeds, family/HCS would likely want to consult Hospice. Palliative care following closely. 45 minutes spent in evaluation of the patient, review of medical record, meeting with family and palliative care. Nicholas Loredo MD Mar 24, 2017 11:16
--- NOTE | 2017-03-24 12:00 | PD.ONC.PN ---
Subjective Subjective Remarks Afebrile overnight. Patient resting in bed, confused. Palliative care just finished meeting with patient's family. Note reviewed. Objective Data Date Time Temp Pulse Resp B/P (MAP) Pulse Ox O2 Delivery O2 Flow Rate FiO2 03/24/17 10:31 Nasal Cannula 2.00 03/24/17 08:39 97.2 66 18 169/76 (107) 100 03/24/17 04:00 97.5 58 20 172/76 (108) 96 03/24/17 00:00 98.0 61 20 164/74 (104) 95 03/23/17 23:30 Nasal Cannula 2.00 03/23/17 21:27 98.1 62 19 128/74 (92) 94 03/23/17 17:26 93 Nasal Cannula 2.00 03/23/17 16:13 97.3 59 18 149/91 (110) 93 03/23/17 14:00 Nasal Cannula 2.00 03/23/17 12:12 98.1 60 18 135/106 (116) 98 03/24/17 03/24/17 03/24/17 07:00 15:00 23:00 Intake Total 220 ml Output Total 1300 ml Balance -1080 ml Result Diagram: 03/24/17 0603 03/24/17 0442 Laboratory Results Laboratory Tests Test 03/23/17 14:01 03/24/17 04:42 03/24/17 06:03 White Blood Count 6.6 TH/MM3 8.1 TH/MM3 Red Blood Count 3.27 MIL/MM3 3.29 MIL/MM3 Hemoglobin 10.0 GM/DL 9.9 GM/DL Hematocrit 28.9 % 29.1 % Mean Corpuscular Volume 88.3 FL 88.4 FL Mean Corpuscular Hemoglobin 30.6 PG 30.1 PG Mean Corpuscular Hemoglobin Concent 34.6 % 34.1 % Red Cell Distribution Width 16.3 % 16.2 % Platelet Count 222 TH/MM3 182 TH/MM3 Mean Platelet Volume 9.1 FL 9.3 FL Neutrophils (%) (Auto) 89.0 % 90.8 % Lymphocytes (%) (Auto) 5.3 % 5.1 % Monocytes (%) (Auto) 5.4 % 3.9 % Eosinophils (%) (Auto) 0.1 % 0.0 % Basophils (%) (Auto) 0.2 % 0.2 % Neutrophils # (Auto) 5.9 TH/MM3 7.3 TH/MM3 Lymphocytes # (Auto) 0.4 TH/MM3 0.4 TH/MM3 Monocytes # (Auto) 0.4 TH/MM3 0.3 TH/MM3 Eosinophils # (Auto) 0.0 TH/MM3 0.0 TH/MM3 Basophils # (Auto) 0.0 TH/MM3 0.0 TH/MM3 CBC Comment DIFF FINAL DIFF FINAL Differential Comment Blood Urea Nitrogen 35 MG/DL 37 MG/DL Creatinine 1.60 MG/DL 1.56 MG/DL Random Glucose 78 MG/DL 52 MG/DL Total Protein 4.3 GM/DL Albumin 1.8 GM/DL Calcium Level 7.5 MG/DL 7.5 MG/DL Alkaline Phosphatase 72 U/L Aspartate Amino Transf (AST/SGOT) 39 U/L Alanine Aminotransferase (ALT/SGPT) 52 U/L Total Bilirubin 0.4 MG/DL Sodium Level 141 MEQ/L 138 MEQ/L Potassium Level 4.5 MEQ/L 4.3 MEQ/L Chloride Level 110 MEQ/L 108 MEQ/L Carbon Dioxide Level 23.0 MEQ/L 23.8 MEQ/L Anion Gap 8 MEQ/L 6 MEQ/L Estimat Glomerular Filtration Rate 42 ML/MIN 44 ML/MIN Administered Medications Medications (Trade) Dose Ordered Sig/Myrna Route PRN Reason Start Time Stop Time Status Last Admin Dose Admin Sodium Chloride (NS Flush) 2 ml UNSCH PRN IV FLUSH FLUSH AFTER USING IV ACCESS 03/04/17 21:00 03/06/17 14:09 Sodium Chloride (NS Flush) 2 ml BID IV FLUSH 03/04/17 21:00 03/24/17 09:40 Amlodipine Besylate (Norvasc) 10 mg DAILY PO 03/05/17 09:00 03/24/17 09:31 Atorvastatin Calcium (Lipitor) 20 mg DAILY PO 03/05/17 09:00 03/24/17 09:31 Dorzolamide HCl (Trusopt 2% Opth Soln) 1 drop BID RIGHT EYE 03/04/17 21:00 03/24/17 09:41 Latanoprost (Xalatan 0.005% Opth Soln) 1 drop HS RIGHT EYE 03/04/17 21:00 03/23/17 23:41 Metoprolol Tartrate (Lopressor) 50 mg Q12HR PO 03/04/17 21:00 03/24/17 09:31 Albuterol/ Ipratropium (Duoneb Neb) 1 ampule Q4HR NEB PRN NEB SOB/WHEEZING 03/06/17 01:15 03/17/17 09:13 Furosemide (Lasix Inj) 20 mg BID@ IV PUSH 03/07/17 09:00 03/24/17 09:32 Potassium Chloride (KCl) 10 meq DAILY PO 03/07/17 09:00 03/24/17 09:32 Losartan Potassium (Cozaar) 25 mg DAILY PO 03/10/17 11:45 03/24/17 09:31 Tamsulosin HCl (Flomax) 0.4 mg DAILY PO 03/10/17 11:45 03/24/17 09:31 Pantoprazole Sodium (Protonix) 40 mg DAILY PO 03/11/17 10:30 03/24/17 09:31 Insulin Aspart (NovoLOG SUPPLEMENTAL SCALE) 1 ACHS SLIDING SCALE SQ 03/11/17 21:00 03/21/17 21:32 Calcium Carbonate (Tums Chew) 500 mg BID PRN PO HEARTBURN 03/13/17 19:00 03/13/17 22:57 Quetiapine Fumarate (SEROquel) 25 mg BID@ PO 03/17/17 12:00 03/24/17 09:31 Prednisone (Deltasone) 20 mg BID PO 03/21/17 09:00 03/24/17 09:31 Apixaban (Eliquis) 5 mg BID PO 03/22/17 09:30 03/24/17 09:31 Objective Remarks GENERAL: Elderly male lying in bed in restraints, resting. SKIN: Warm and dry. HEAD: Normocephalic. EYES: No injection or drainage. NECK: Supple, trachea midline. CARDIOVASCULAR: Regular rate and rhythm RESPIRATORY: anterior fraga with occasional rhonchi. on 2L O2 via NC GASTROINTESTINAL: Abdomen soft, non-tender, nondistended. EXTREMITIES: No cyanosis Assessment/Plan Problem List: (1) Pulmonary emboli ICD Codes: I26.99 - Other pulmonary embolism without acute cor pulmonale Plan: 03/24: no sign of bleeding. monitor CBC, continue Eliquis --V/Q scan--> intermediate to high probability) --CTA chest to confirm PE is pending. --recent GI workup showed no evidence of bleeding. (2) Bladder cancer ICD Codes: C67.9 - Malignant neoplasm of bladder, unspecified Status: Acute Plan: --s/p neoadjuvant chemo. --will need radical cystectomy but unfortunately is not stable enough at present. --needs repeat cystoscopy and TURBT by urology (3) Metabolic encephalopathy ICD Codes: G93.41 - Metabolic encephalopathy Status: Acute Plan: --unclear etiology --psych following. Attending Statement The exam, history, and the medical decision-making described in the above note were completed with the assistance of the mid-level provider. I reviewed and agree with the findings presented. I attest that I had a [id number] encounter with the patient on the same day, and personally performed and documented my assessment and findings in the medical record. Pt is very confused and lethargic. No bleeding. continue eliquis palliative care note reviewed and appreciated. prognosis is poor. I recommend hospice Problem Qualifiers (1) Bladder cancer: Qualified Codes: C67.9 - Malignant neoplasm of bladder, unspecified Suha Logan Mar 24, 2017 11:59 Denny Dumont MD Mar 24, 2017 17:55
[2017-03-24] MEDS: DIVALPROEX SODIUM DELAYED RELEASE 125 MG TAB PO SCH ×2 (13:15→22:36)
--- NOTE | 2017-03-24 13:17 | HHI.PYPN ---
Subjective Remarks The patient was seen today for psychiatric reevaluation. Case was widely discussed with the primary medical team and palliative care team. Patient continues to be very agitated, restless, confused and disorganized. Patient needs to be continuously restrained due to the level of behavioral dysregulation. Patient does not seem to be responding well to current psychotropic regimen. Review of Systems Psychiatric: COMPLAINS OF: Confusion, Agitation Except as stated in HPI: all other systems reviewed are Neg Mental Status Examination Appearance: Appropriate Consciousness: Alert, Clouded Orientation: Person Motor Activity: Abnormal gait Speech: Incoherent Fund of Knowledge: Inadequate Attention and Concentration: Easily Distracted, Inadequate Memory: Impaired Mood: Irritable Affect: Irritable, Other (euphoric) Thought Process & Associations: Loose associations, Tangential Hallucination Type: Visual Suicidal Ideation: No Suicidal Plan: No Suicidal Intention: No Homicidal Ideation: No Homicidal Plan: No Homicidal Intention: No Insight: Fair Judgment: Impulsive Results Labs Test 03/23/17 14:01 03/24/17 04:42 03/24/17 06:03 White Blood Count 6.6 TH/MM3 8.1 TH/MM3 Red Blood Count 3.27 MIL/MM3 3.29 MIL/MM3 Hemoglobin 10.0 GM/DL 9.9 GM/DL Hematocrit 28.9 % 29.1 % Mean Corpuscular Volume 88.3 FL 88.4 FL Mean Corpuscular Hemoglobin 30.6 PG 30.1 PG Mean Corpuscular Hemoglobin Concent 34.6 % 34.1 % Red Cell Distribution Width 16.3 % 16.2 % Platelet Count 222 TH/MM3 182 TH/MM3 Mean Platelet Volume 9.1 FL 9.3 FL Neutrophils (%) (Auto) 89.0 % 90.8 % Lymphocytes (%) (Auto) 5.3 % 5.1 % Monocytes (%) (Auto) 5.4 % 3.9 % Eosinophils (%) (Auto) 0.1 % 0.0 % Basophils (%) (Auto) 0.2 % 0.2 % Neutrophils # (Auto) 5.9 TH/MM3 7.3 TH/MM3 Lymphocytes # (Auto) 0.4 TH/MM3 0.4 TH/MM3 Monocytes # (Auto) 0.4 TH/MM3 0.3 TH/MM3 Eosinophils # (Auto) 0.0 TH/MM3 0.0 TH/MM3 Basophils # (Auto) 0.0 TH/MM3 0.0 TH/MM3 CBC Comment DIFF FINAL DIFF FINAL Differential Comment Blood Urea Nitrogen 35 MG/DL 37 MG/DL Creatinine 1.60 MG/DL 1.56 MG/DL Random Glucose 78 MG/DL 52 MG/DL Total Protein 4.3 GM/DL Albumin 1.8 GM/DL Calcium Level 7.5 MG/DL 7.5 MG/DL Alkaline Phosphatase 72 U/L Aspartate Amino Transf (AST/SGOT) 39 U/L Alanine Aminotransferase (ALT/SGPT) 52 U/L Total Bilirubin 0.4 MG/DL Sodium Level 141 MEQ/L 138 MEQ/L Potassium Level 4.5 MEQ/L 4.3 MEQ/L Chloride Level 110 MEQ/L 108 MEQ/L Carbon Dioxide Level 23.0 MEQ/L 23.8 MEQ/L Anion Gap 8 MEQ/L 6 MEQ/L Estimat Glomerular Filtration Rate 42 ML/MIN 44 ML/MIN Date/Time Source Procedure Growth Status 03/04/17 17:04 Blood Peripheral Aerobic Blood Culture - Final NO GROWTH IN 5 DAYS Complete 03/04/17 17:04 Blood Peripheral Anaerobic Blood Culture - Final NO GROWTH IN 5 DAYS Complete 03/11/17 03:00 Stool Stool Stool Occult Blood (SANGEETA) - Final HEMOCCULT POSITIVE Complete 03/04/17 20:50 Nasal Washing Influenza Types A,B Antigen (SANGEETA) - Final NEGATIVE FOR FLU A AND B ANTIGEN.... Complete 03/11/17 09:42 Urine Clean Catch Urine Culture - Final NO GROWTH IN 48 HOURS. Complete 03/05/17 03:35 Abscess Leg Gram Stain - Final Complete 03/05/17 03:35 Wound Culture - Final Staphylococcus Aureus Complete Vitals/IOs Vital Signs Date Time Temp Pulse Resp B/P (MAP) Pulse Ox O2 Delivery O2 Flow Rate FiO2 03/24/17 12:50 98.6 59 18 121/89 (100) 98 03/24/17 10:31 Nasal Cannula 2.00 03/22/17 17:23 21 Intake and Output 03/24/17 03/24/17 03/25/17 08:00 16:00 00:00 Intake Total 220 ml Output Total 1300 ml Balance -1080 ml Assessment & Plan Problem List: (1) Delirium due to another medical condition ICD Codes: F05 - Delirium due to known physiological condition Assessment & Plan: Patient continues to be delirious, very agitated and psychotic was probably related with multiple factors including polypharmacy/ multiple medical conditions/insert the catheter/length of hospitalizations/ underlying neurocognitive disorder. Will increase Seroquel to 50 mg twice a day and we'll start Depakote 125 mg twice a day to help with behavior and mood stabilization. Try to avoid anticholinergics/benzodiazepine/narcotic as much as possible since this can of medication can actually worsening cognition. Frequent reorientation/familiar faces around/sensory stimulation are also highly recommended. We'll continue follow-up Assessment & Plan Estimated LOS: days Justification for Cont. Inpt. Patient does not meet criteria for psychiatric admission at this moment. Aung Cuevas MD Mar 24, 2017 13:17
--- NOTE | 2017-03-24 16:10 | PD.WCN.NOT ---
Wound Consult Description: Follow up of wound to left buttock Communicated with: DIANN Orozco Dr Recommendation: 1) Please reposition patient every 2 hours from left to right sides only. 2) Please use ONLY 1 disposable ultrasorb underpad for moisture with specialty surface Advanced IV . 3) Cleanse left buttock/sacral/coccyx wounds with normal saline and gauze daily and PRN for soiling or dislodgement. 4) Apply skin prep to the periwound and allow to dry. 5) Apply Santyl to necrotic tissue in wound bed and cover with a gauze dressing and tape or a bordered gauze. DO NOT USE A FOAM DRESSING FOR A COVER DRESSING. Additional Information: Patient seen on for follow up of wound to left buttock. Patient soft wrist restraints were removed to reposition patient to his left side for assessment with DIANN Orozco. Patient is noted to be lying on a specialty surface with a thick cloth pad which is contraindicated with this type of mattress. Wound presents as loosely adherent yellow/brown necrotic tissue on left inner buttock surrounded by partial thickness skin loss and full thickness skin loss within the wound bed measuring 7cm x 6.5cm x slough. Remnants of Calazime barrier cream is noted to perianal area. Wound is dry, non draining, and without odor. Wound was cleansed with NS and gauze. A moistened dressing of gauze was placed over the wound bed, periwound was skin prepped using Cavilon barrier film spray, and gauze was secured with a bordered gauze dressing until orders for Santyl can be obtained from physician. Patient was repositioned and soft wrist restraints were placed back on by DIANN Orozco before leaving patient room. Corinne Guevara [facility] Mar 24, 2017 16:10
[2017-03-24] MEDS: LATANOPROST 0.005% OPHT SOLN 2.5 ML BTL RIGHT EYE SCH (22:36)
[2017-03-25] VITALS (7 sets, daily range): BP systolic 131–175; BP diastolic 63–74; PULSE 56–83; RESP 17–20; TEMP 97.3–97.9; O2SAT 91–96
[2017-03-25 08:15] LABS: AUTOMATED NEUTROPHIL # 6.9 TH/MM3 (1.8-7.7); BASOPHIL % 0.1 % (0.0-2.0); HEMATOCRIT 28.5 % (39.0-51.0); HEMOGLOBIN 9.8 GM/DL (13.0-17.0); LYMPH % 5.6 % (9.0-44.0); LYMPHOCYTE # 0.4 TH/MM3 (1.0-4.8); MEAN CELL VOLUME 87.6 FL (80.0-100.0); MEAN CORPUSCULAR HEMOGLOBIN 30.1 PG (27.0-34.0); MEAN CORPUSCULAR HGB CONC 34.4 % (32.0-36.0); MEAN PLATELET VOLUME 9.2 FL (7.0-11.0); MONO % 6.2 % (0.0-8.0); MONOCYTE # 0.5 TH/MM3 (0-0.9); NEUT % 88.1 % (16.0-70.0); PLATELET COUNT 166 TH/MM3 (150-450); RED BLOOD COUNT 3.26 MIL/MM3 (4.50-5.90); RED CELL DISTRIBUTION WIDTH 16.2 % (11.6-17.2); WHITE BLOOD COUNT 7.8 TH/MM3 (4.0-11.0)
[2017-03-25 08:40] LABS: BICARBONATE 24.5 MEQ/L (21.0-32.0); CALCIUM 7.3 MG/DL (8.5-10.1); CREATININE 1.4 MG/DL (0.60-1.30); PHOSPHORUS 2.2 MG/DL (2.5-4.9)
[2017-03-25] MEDS: INSULIN ASPART SUPPLEMENTAL SCALE SQ SCH ×4 (08:59→20:54)
[2017-03-25] MEDS: COLLAGENASE OINT 30 GM TUBE TOPICAL SCH (09:00)
[2017-03-25 09:01] LABS: CALCIUM-PROTEIN CORRECTED 9.1 MG/DL (8.5-10.1); TOTAL PROTEIN 4.1 GM/DL (6.4-8.2)
[2017-03-25] MEDS: DORZOLAMIDE 2% OPTH SOLN 200 DROP/10 ML BTLO RIGHT EYE SCH ×2 (09:01→20:54)
[2017-03-25] MEDS: LOSARTAN 25 MG TAB PO SCH (09:02)
[2017-03-25] MEDS: QUEtiapine FUMARATE 25 MG TAB PO SCH ×2 (09:02→12:57)
[2017-03-25] MEDS: FUROSEMIDE 20 MG/2 ML VIAL IV PUSH SCH ×2 (09:02→17:39)
[2017-03-25] MEDS: METOPROLOL TARTRATE 50 MG TAB PO SCH ×2 (09:02→20:54)
[2017-03-25] MEDS: APIXABAN 5 MG TABLET PO SCH ×2 (09:02→20:54)
[2017-03-25] MEDS: TAMSULOSIN HCL 0.4 MG CAP PO SCH (09:03)
[2017-03-25] MEDS: DIVALPROEX SODIUM DELAYED RELEASE 125 MG TAB PO SCH ×2 (09:03→20:54)
[2017-03-25] MEDS: POTASSIUM CHLORIDE 10 MEQ CAP PO SCH (09:03)
[2017-03-25] MEDS: PANTOPRAZOLE SOD 40 MG DELAYED RELEASE TAB PO SCH (09:03)
[2017-03-25] MEDS: predniSONE 20 MG TAB PO SCH ×2 (09:04→20:53)
[2017-03-25] MEDS: SODIUM CHLORIDE 0.9% FLUSH 10 ML FLUSH IV FLUSH SCH ×2 (09:04→20:53)
[2017-03-25] MEDS: ATORVASTATIN 20 MG TAB PO SCH (09:04)
--- NOTE | 2017-03-25 10:07 | HHI.PR ---
Subjective Remarks Patient seen and examined this morning. BP elevated. Sitting in bed, says he feels comfortable. No complaints. Asked if there was anything I could do for him, he states hes going to be leaving soon. Objective Vital Signs Date Time Temp Pulse Resp B/P (MAP) Pulse Ox O2 Delivery O2 Flow Rate FiO2 03/25/17 07:30 95 21 03/25/17 04:00 97.5 68 20 175/70 (105) 95 03/25/17 00:00 97.9 66 19 140/63 (88) 96 03/24/17 20:00 97.8 60 17 143/61 (88) 98 03/24/17 19:00 98 Room Air 03/24/17 16:00 98.5 57 18 124/79 (94) 95 03/24/17 12:50 98.6 59 18 121/89 (100) 98 03/24/17 12:00 98 03/24/17 10:31 Nasal Cannula 2.00 I/O 03/24/17 03/24/17 03/24/17 03/25/17 03/25/17 03/25/17 07:00 15:00 23:00 07:00 15:00 23:00 Intake Total 220 ml 480 ml 350 ml Output Total 1300 ml 1200 ml 1200 ml Balance -1080 ml -720 ml -850 ml Intake Oral 220 ml 480 ml 350 ml Output Urine Total 1300 ml 1200 ml 1200 ml Result Diagram: 03/25/17 0747 03/25/[address] Angiography 03/21/17 0000 Signed Impressions: Service Date/Time: Tuesday, March 21, 2017 14:02 - CONCLUSION: 1. Bilateral pulmonary emboli. 2. Small bilateral pleural effusions right greater than left with consolidation in the right posterior lung base. Clemente Alcala MD Lung Scan-V Nuclear Medicine 03/20/17 0000 Signed Impressions: Service Date/Time: Monday, March 20, 2017 11:15 - CONCLUSION: Intermediate to high probability of pulmonary embolism. Correlation suggested. Bennett Ibarra MD FACR Chest X-Ray 03/20/17 0000 Signed Impressions: Service Date/Time: Monday, March 20, 2017 13:47 - CONCLUSION: Loculated cardiomegaly without failure or infiltrate Bennett Ibarra MD FACR Head CT 03/18/17 0000 Signed Impressions: Service Date/Time: Saturday, March 18, 2017 11:31 - CONCLUSION: 1. 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 2. Diffuse cerebral atrophy. 3. No acute infarct, acute hemorrhage, mass effect or extra-axial fluid collections. 4. Fluid is noted within the right mastoid air cells. Mjeia Davidson MD Venous Access Device Injection 03/14/17 0000 Signed Impressions: Service Date/Time: Tuesday, March 14, 2017 12:06 - CONCLUSION: 1. The port is in excellent position and flushes easily. 2. Contrast could not be withdrawn from the port though no definite fibrin sheath is evident around the catheter. The catheter was locked with 4 mg of TPA. Jose J Ibarra MD Brain MRI 03/05/17 0000 Signed Impressions: Service Date/Time: Sunday, March 05, 2017 11:28 - CONCLUSION: Moderate motion artifact. Negative for acute ischemic event. Atrophy with periventricular changes. Bennett Ibarra MD FACR Abdomen/Pelvis CT 03/04/17 1742 Signed Impressions: Service Date/Time: Saturday, March 04, 2017 18:28 - CONCLUSION: 1. Bilateral pleural effusions small to moderate in size. 2. No acute findings in the abdomen and pelvis. Corby Melendez MD Objective Remarks GENERAL: sitting in bed, resting SKIN: Warm and dry. HEAD: Normocephalic. EYES: No scleral icterus. No injection or drainage. NECK: Supple, trachea midline. No JVD or lymphadenopathy. CARDIOVASCULAR: Regular rate and rhythm without murmurs, gallops, or rubs. RESPIRATORY: Breath sounds equal bilaterally. No accessory muscle use. GASTROINTESTINAL: Abdomen soft, non-tender, nondistended. MUSCULOSKELETAL: No cyanosis, or edema. LLE BKA. Neuro: confused, sometimes does not answer questions appropriately, is pleasant A/P Problem List: (1) Pulmonary emboli ICD Code: I26.99 - Other pulmonary embolism without acute cor pulmonale (2) Delirium due to another medical condition ICD Code: F05 - Delirium due to known physiological condition (3) Hypertension ICD Code: I10 - Hypertension (4) confusion/hallucinations, new onset, ?delirium, without apparent infection (5) bladder cancer July 2016, high-grade muscle invasive urothelial cancer (6) hyperlipidemia (7) Pneumonia ICD Code: J18.9 - Pneumonia, unspecified organism Assessment and Plan 76-year-old male with Acute metabolic encephalopathy: Likely secondary to hypoglycemia, hypoxia, sedating medications. Ativan has been discontinued. EEG shows encephalopathy. CT of the head is unremarkable. Appreciate psychiatry recommendations, Dr. Cuevas: Patient continues to be delirious and very agitated and psychotic. Likely multifactorial including medical conditions, underlying neurocognitive disorder, polypharmacy. Circles increased to 50 mg twice a day and Depakote 125 mg twice a day was started. He suggested to avoid anticholinergics, benzos , and narcotics as much as possible. Pulmonary embolus: VQ scan shows intermediate to high probability of pulmonary embolism. CT pulmonary angiogram confirms PE. Appreciate pulmonology recommendations. Heparin drip discontinued. Continue Eliquis. Possible healthcare acquired pneumonia: Currently not on antibiotics. Per review of the EMR patient has received Rocephin, Ceftin, and Zosyn. Continue oxygen, steroids. Taper steroids slowly. Pyuria: Possibly epididymitis. S/P treatment with rocephin. Caballero catheter in place. Urine culture no growth in 48 hrs. Urinary retention: Caballero catheter in place. Appreciate urology recommendations. Change Caballero catheter monthly. History of bladder cancer: Appreciate oncology, urology recommendations. Patient will need radical cystectomy but is not stable at this time. Needs repeat cystoscopy and TURBT by urology. Heme/onc RECOMMENDED hospice. Insulin-dependent diabetes mellitus: Hold Levemir due to hypoglycemia. Patient with poor oral intake. Monitor Accu-Cheks and cover with sliding scale insulin. Hypertension: Continue home medications. Hyperlipidemia: Continue home medications. Agitation: Appreciate psychiatry recommendations. Generalized weakness: Continue PT/OT. GI bleed: Status post EGD/colonoscopy 03/16/16. Appreciate GI recommendations. Monitor H&H. No active bleeding noted. Monitor closely while on anticoagulation. H/H stable. DVT prophylaxis: SCDs. Appreciate palliative care assistance. Discharge Planning Family meeting yesterday with medical team and palliative care and family. Family agrees that if the patient does not improve his ability to eat and nutritional status continues to deteriorate they would like to transition to comfort measures. Plan at this time is to continue current management until Monday or Monday, at that time a decision will be made about need for feeding tube. If the feeding tube is deemed necessary the patient would like to discuss next course with hospice. Michelle Trevino MD Mar 25, 2017 10:07
[2017-03-25] MEDS: LATANOPROST 0.005% OPHT SOLN 2.5 ML BTL RIGHT EYE SCH (20:54)
[2017-03-26] VITALS: BP 138/64; PULSE 57; RESP 20; TEMP 97.3; O2SAT 92
[2017-03-26 04:00] VITALS: BP_SYST 110; BP_SYST 138; BP_DIAS 65; BP_DIAS 72; PULSE 55; PULSE 77; RESP 18; TEMP 97.1; TEMP 97.6; O2SAT 93; O2SAT 98
[2017-03-26 08:00] VITALS: BP 145/65; PULSE 56; RESP 19; TEMP 97.1; O2SAT 98
[2017-03-26] MEDS: INSULIN ASPART SUPPLEMENTAL SCALE SQ SCH ×4 (08:56→21:00)
[2017-03-26] MEDS: PANTOPRAZOLE SOD 40 MG DELAYED RELEASE TAB PO SCH (08:57)
[2017-03-26] MEDS: TAMSULOSIN HCL 0.4 MG CAP PO SCH (08:57)
[2017-03-26] MEDS: APIXABAN 5 MG TABLET PO SCH ×2 (08:57→23:50)
[2017-03-26] MEDS: LOSARTAN 25 MG TAB PO SCH (08:57)
[2017-03-26] MEDS: predniSONE 20 MG TAB PO SCH ×2 (08:57→23:50)
[2017-03-26] MEDS: QUEtiapine FUMARATE 25 MG TAB PO SCH ×2 (08:57→13:00)
[2017-03-26] MEDS: POTASSIUM CHLORIDE 10 MEQ CAP PO SCH (08:57)
[2017-03-26] MEDS: METOPROLOL TARTRATE 50 MG TAB PO SCH ×2 (08:57→21:00)
[2017-03-26] MEDS: DORZOLAMIDE 2% OPTH SOLN 200 DROP/10 ML BTLO RIGHT EYE SCH ×2 (08:58→23:51)
[2017-03-26] MEDS: COLLAGENASE OINT 30 GM TUBE TOPICAL SCH (08:58)
[2017-03-26] MEDS: DIVALPROEX SODIUM DELAYED RELEASE 125 MG TAB PO SCH ×2 (08:58→23:50)
[2017-03-26] MEDS: ATORVASTATIN 20 MG TAB PO SCH (08:58)
[2017-03-26] MEDS: FUROSEMIDE 20 MG/2 ML VIAL IV PUSH SCH ×2 (08:58→17:29)
[2017-03-26] MEDS: SODIUM CHLORIDE 0.9% FLUSH 10 ML FLUSH IV FLUSH SCH ×2 (08:58→23:49)
[2017-03-26 09:13] LABS: HEMATOCRIT 31.4 % (39.0-51.0); HEMOGLOBIN 10.7 GM/DL (13.0-17.0); MEAN CELL VOLUME 88.1 FL (80.0-100.0); MEAN CORPUSCULAR HEMOGLOBIN 30.1 PG (27.0-34.0); MEAN CORPUSCULAR HGB CONC 34.2 % (32.0-36.0); MEAN PLATELET VOLUME 9.3 FL (7.0-11.0); PLATELET COUNT 155 TH/MM3 (150-450); RED BLOOD COUNT 3.56 MIL/MM3 (4.50-5.90); RED CELL DISTRIBUTION WIDTH 16.1 % (11.6-17.2); WHITE BLOOD COUNT 7.6 TH/MM3 (4.0-11.0)
--- NOTE | 2017-03-26 09:42 | HHI.PR ---
Subjective Remarks Patient seen and examined this morning. Sitting in bed, says he feels comfortable. No complaints. Some confusion yesterday, was attempting to pull out chew. Sleeping comfortably in bed. Awakens easily. Objective Vital Signs Date Time Temp Pulse Resp B/P (MAP) Pulse Ox O2 Delivery O2 Flow Rate FiO2 03/26/17 09:14 99 Nasal Cannula 2.00 03/26/17 09:09 98 Nasal Cannula 3.50 03/26/17 08:00 97.1 56 19 145/65 (91) 98 03/26/17 04:00 97.1 55 18 138/65 (89) 93 03/26/17 04:00 97.6 77 18 110/72 (85) 98 03/26/17 00:00 97.3 57 20 138/64 (88) 92 03/25/17 23:00 97 Nasal Cannula 4.00 03/25/17 20:00 97.5 56 20 141/65 (90) 91 03/25/17 16:00 97.9 83 17 131/74 (93) 96 03/25/17 12:00 97.7 71 18 145/67 (93) 96 I/O 03/25/17 03/25/17 03/25/17 03/26/17 03/26/17 03/26/17 06:59 14:59 22:59 06:59 14:59 22:59 Intake Total 350 ml 600 ml Output Total 1200 ml 2350 ml 1350 ml Balance -850 ml -1750 ml -1350 ml Intake Oral 350 ml 600 ml Output Urine Total 1200 ml 2350 ml 1350 ml # Bowel Movements 2 Result Diagram: 03/26/17 0836 03/25/[address] Angiography 03/21/17 0000 Signed Impressions: Service Date/Time: Tuesday, March 21, 2017 14:02 - CONCLUSION: 1. Bilateral pulmonary emboli. 2. Small bilateral pleural effusions right greater than left with consolidation in the right posterior lung base. Clemente Alcala MD Lung Scan-V Nuclear Medicine 03/20/17 0000 Signed Impressions: Service Date/Time: Monday, March 20, 2017 11:15 - CONCLUSION: Intermediate to high probability of pulmonary embolism. Correlation suggested. Bennett Ibarra MD FACR Chest X-Ray 03/20/17 0000 Signed Impressions: Service Date/Time: Monday, March 20, 2017 13:47 - CONCLUSION: Loculated cardiomegaly without failure or infiltrate Bennett Ibarra MD FACR Head CT 03/18/17 0000 Signed Impressions: Service Date/Time: Saturday, March 18, 2017 11:31 - CONCLUSION: 1. 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 2. Diffuse cerebral atrophy. 3. No acute infarct, acute hemorrhage, mass effect or extra-axial fluid collections. 4. Fluid is noted within the right mastoid air cells. Mejia Davidson MD Venous Access Device Injection 03/14/17 0000 Signed Impressions: Service Date/Time: Tuesday, March 14, 2017 12:06 - CONCLUSION: 1. The port is in excellent position and flushes easily. 2. Contrast could not be withdrawn from the port though no definite fibrin sheath is evident around the catheter. The catheter was locked with 4 mg of TPA. Jose J Ibarra MD Brain MRI 03/05/17 0000 Signed Impressions: Service Date/Time: Sunday, March 05, 2017 11:28 - CONCLUSION: Moderate motion artifact. Negative for acute ischemic event. Atrophy with periventricular changes. Bennett Ibarra MD FACR Abdomen/Pelvis CT 03/04/17 1742 Signed Impressions: Service Date/Time: Saturday, March 04, 2017 18:28 - CONCLUSION: 1. Bilateral pleural effusions small to moderate in size. 2. No acute findings in the abdomen and pelvis. Corby Melendez MD Objective Remarks GENERAL: sitting in bed, resting SKIN: Warm and dry. HEAD: Normocephalic. EYES: No scleral icterus. No injection or drainage. NECK: Supple, trachea midline. No JVD or lymphadenopathy. CARDIOVASCULAR: Regular rate and rhythm without murmurs, gallops, or rubs. RESPIRATORY: Breath sounds equal bilaterally. No accessory muscle use. GASTROINTESTINAL: Abdomen soft, non-tender, nondistended. MUSCULOSKELETAL: No cyanosis, or edema. LLE BKA. Neuro: confused, sometimes does not answer questions appropriately, is pleasant A/P Problem List: (1) Pulmonary emboli ICD Code: I26.99 - Other pulmonary embolism without acute cor pulmonale (2) Delirium due to another medical condition ICD Code: F05 - Delirium due to known physiological condition (3) Hypertension ICD Code: I10 - Hypertension (4) confusion/hallucinations, new onset, ?delirium, without apparent infection (5) bladder cancer July 2016, high-grade muscle invasive urothelial cancer (6) hyperlipidemia (7) Pneumonia ICD Code: J18.9 - Pneumonia, unspecified organism Assessment and Plan 76-year-old male with Acute metabolic encephalopathy: Likely secondary to hypoglycemia, hypoxia, sedating medications. Ativan has been discontinued. EEG shows encephalopathy. CT of the head is unremarkable. Appreciate psychiatry recommendations, Dr. Cuevas: Patient continues to be delirious and very agitated and psychotic. Likely multifactorial including medical conditions, underlying neurocognitive disorder, polypharmacy. Circles increased to 50 mg twice a day and Depakote 125 mg twice a day was started. He suggested to avoid anticholinergics, benzos , and narcotics as much as possible. Pulmonary embolus: VQ scan shows intermediate to high probability of pulmonary embolism. CT pulmonary angiogram confirms PE. Appreciate pulmonology recommendations. Heparin drip discontinued. Continue Eliquis. Possible healthcare acquired pneumonia: Currently not on antibiotics. Per review of the EMR patient has received Rocephin, Ceftin, and Zosyn. Continue oxygen, steroids. Taper steroids slowly. Pyuria: Possibly epididymitis. S/P treatment with rocephin. Chew catheter in place. Urine culture no growth in 48 hrs. Urinary retention: Chew catheter in place. Appreciate urology recommendations. Change Chew catheter monthly. History of bladder cancer: Appreciate oncology, urology recommendations. Patient will need radical cystectomy but is not stable at this time. Needs repeat cystoscopy and TURBT by urology. Heme/onc RECOMMENDED hospice. Insulin-dependent diabetes mellitus: Hold Levemir due to hypoglycemia. Patient with poor oral intake. Monitor Accu-Cheks and cover with sliding scale insulin. Hypertension: Continue home medications. Hyperlipidemia: Continue home medications. Agitation: Appreciate psychiatry recommendations. Generalized weakness: Continue PT/OT. GI bleed: Status post EGD/colonoscopy 03/16/16. Appreciate GI recommendations. Monitor H&H. No active bleeding noted. Monitor closely while on anticoagulation. H/H stable. DVT prophylaxis: SCDs. Appreciate palliative care assistance. Discharge Planning Family meeting 03/24 with medical team and palliative care and family. Family agrees that if the patient does not improve his ability to eat and nutritional status continues to deteriorate they would like to transition to comfort measures. Plan at this time is to continue current management until Monday or Monday, at that time a decision will be made about need for feeding tube. If the feeding tube is deemed necessary the patient would like to discuss next course with hospice. Michelle Trevino MD Mar 26, 2017 09:42
[2017-03-26 12:00] VITALS: BP 100/55; PULSE 53; RESP 19; TEMP 97; O2SAT 96
[2017-03-26 16:00] VITALS: BP 110/54; PULSE 52; RESP 19; TEMP 97.1; O2SAT 94
[2017-03-26 20:00] VITALS: BP 97/52; PULSE 50; RESP 18; TEMP 97.2; O2SAT 95
[2017-03-26] MEDS: LATANOPROST 0.005% OPHT SOLN 2.5 ML BTL RIGHT EYE SCH (23:50)
[2017-03-27] VITALS (7 sets, daily range): BP systolic 119–173; BP diastolic 53–88; PULSE 52–67; RESP 18–20; TEMP 94–97.4; O2SAT 93–98
[2017-03-27] MEDS: INSULIN ASPART SUPPLEMENTAL SCALE SQ SCH ×4 (08:00→21:00)
[2017-03-27] MEDS: METOPROLOL TARTRATE 50 MG TAB PO SCH ×2 (09:16→21:00)
[2017-03-27] MEDS: SODIUM CHLORIDE 0.9% FLUSH 10 ML FLUSH IV FLUSH SCH ×2 (09:16→22:02)
[2017-03-27] MEDS: LOSARTAN 25 MG TAB PO SCH (09:16)
[2017-03-27] MEDS: PANTOPRAZOLE SOD 40 MG DELAYED RELEASE TAB PO SCH (09:16)
[2017-03-27] MEDS: TAMSULOSIN HCL 0.4 MG CAP PO SCH (09:17)
[2017-03-27] MEDS: DIVALPROEX SODIUM DELAYED RELEASE 125 MG TAB PO SCH ×2 (09:17→22:03)
[2017-03-27] MEDS: predniSONE 20 MG TAB PO SCH ×2 (09:17→22:03)
[2017-03-27] MEDS: QUEtiapine FUMARATE 25 MG TAB PO SCH ×2 (09:17→13:24)
[2017-03-27] MEDS: ATORVASTATIN 20 MG TAB PO SCH (09:17)
[2017-03-27] MEDS: POTASSIUM CHLORIDE 10 MEQ CAP PO SCH (09:17)
[2017-03-27] MEDS: FUROSEMIDE 20 MG/2 ML VIAL IV PUSH SCH ×2 (09:18→17:07)
[2017-03-27] MEDS: DORZOLAMIDE 2% OPTH SOLN 200 DROP/10 ML BTLO RIGHT EYE SCH ×2 (09:18→22:04)
[2017-03-27] MEDS: APIXABAN 5 MG TABLET PO SCH ×2 (09:18→22:03)
[2017-03-27] MEDS: COLLAGENASE OINT 30 GM TUBE TOPICAL SCH (09:20)
--- NOTE | 2017-03-27 09:44 | HHI.PR ---
Subjective Remarks Patient seen and examined this morning. Sitting in bed, says he feels comfortable. No complaints. Objective Vital Signs Date Time Temp Pulse Resp B/P (MAP) Pulse Ox O2 Delivery O2 Flow Rate FiO2 03/27/17 08:23 95.6 53 20 132/88 (103) 95 03/27/17 04:00 97.1 60 18 129/70 (89) 93 03/27/17 00:00 97.2 52 18 130/67 (88) 96 03/26/17 22:00 96 Room Air 03/26/17 20:00 97.2 50 18 97/52 (67) 95 03/26/17 16:00 97.1 52 19 110/54 (72) 94 03/26/17 12:00 97.0 53 19 100/55 (70) 96 03/26/17 11:30 94 Room Air I/O 03/26/17 03/26/17 03/26/17 03/27/17 03/27/17 03/27/17 07:00 15:00 23:00 07:00 15:00 23:00 Output Total 1350 ml 1350 ml 250 ml Balance -1350 ml -1350 ml -250 ml Output Urine Total 1350 ml 1350 ml 250 ml # Bowel Movements 2 1 1 Result Diagram: 03/26/17 0836 03/25/[address] Angiography 03/21/17 0000 Signed Impressions: Service Date/Time: Tuesday, March 21, 2017 14:02 - CONCLUSION: 1. Bilateral pulmonary emboli. 2. Small bilateral pleural effusions right greater than left with consolidation in the right posterior lung base. Clemente Alcala MD Lung Scan-V Nuclear Medicine 03/20/17 0000 Signed Impressions: Service Date/Time: Monday, March 20, 2017 11:15 - CONCLUSION: Intermediate to high probability of pulmonary embolism. Correlation suggested. Bennett Ibarra MD FACR Chest X-Ray 03/20/17 0000 Signed Impressions: Service Date/Time: Monday, March 20, 2017 13:47 - CONCLUSION: Loculated cardiomegaly without failure or infiltrate Bennett Ibarra MD FACR Head CT 03/18/17 0000 Signed Impressions: Service Date/Time: Saturday, March 18, 2017 11:31 - CONCLUSION: 1. 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 2. Diffuse cerebral atrophy. 3. No acute infarct, acute hemorrhage, mass effect or extra-axial fluid collections. 4. Fluid is noted within the right mastoid air cells. Mejia Davidson MD Venous Access Device Injection 03/14/17 0000 Signed Impressions: Service Date/Time: Tuesday, March 14, 2017 12:06 - CONCLUSION: 1. The port is in excellent position and flushes easily. 2. Contrast could not be withdrawn from the port though no definite fibrin sheath is evident around the catheter. The catheter was locked with 4 mg of TPA. Jose J Ibarra MD Brain MRI 03/05/17 0000 Signed Impressions: Service Date/Time: Sunday, March 05, 2017 11:28 - CONCLUSION: Moderate motion artifact. Negative for acute ischemic event. Atrophy with periventricular changes. Bennett Ibarra MD FACR Abdomen/Pelvis CT 03/04/17 1742 Signed Impressions: Service Date/Time: Saturday, March 04, 2017 18:28 - CONCLUSION: 1. Bilateral pleural effusions small to moderate in size. 2. No acute findings in the abdomen and pelvis. Corby Melendez MD Objective Remarks GENERAL: sitting in bed, resting SKIN: Warm and dry. HEAD: Normocephalic. EYES: No scleral icterus. No injection or drainage. NECK: Supple, trachea midline. No JVD or lymphadenopathy. CARDIOVASCULAR: Regular rate and rhythm without murmurs, gallops, or rubs. RESPIRATORY: Breath sounds equal bilaterally. No accessory muscle use. GASTROINTESTINAL: Abdomen soft, non-tender, nondistended. MUSCULOSKELETAL: No cyanosis, or edema. LLE BKA. Neuro: confused, sometimes does not answer questions appropriately, is pleasant A/P Problem List: (1) Pulmonary emboli ICD Code: I26.99 - Other pulmonary embolism without acute cor pulmonale (2) Delirium due to another medical condition ICD Code: F05 - Delirium due to known physiological condition (3) Hypertension ICD Code: I10 - Hypertension (4) confusion/hallucinations, new onset, ?delirium, without apparent infection (5) bladder cancer July 2016, high-grade muscle invasive urothelial cancer (6) hyperlipidemia (7) Pneumonia ICD Code: J18.9 - Pneumonia, unspecified organism Assessment and Plan 76-year-old male with Acute metabolic encephalopathy: Likely secondary to hypoglycemia, hypoxia, sedating medications. Ativan has been discontinued. EEG shows encephalopathy. CT of the head is unremarkable. Appreciate psychiatry recommendations, Dr. Cuevas: Patient continues to be delirious and very agitated and psychotic. Likely multifactorial including medical conditions, underlying neurocognitive disorder, polypharmacy. Circles increased to 50 mg twice a day and Depakote 125 mg twice a day was started. He suggested to avoid anticholinergics, benzos , and narcotics as much as possible. Pulmonary embolus: VQ scan shows intermediate to high probability of pulmonary embolism. CT pulmonary angiogram confirms PE. Appreciate pulmonology recommendations. Heparin drip discontinued. Continue Eliquis. Possible healthcare acquired pneumonia: Currently not on antibiotics. Per review of the EMR patient has received Rocephin, Ceftin, and Zosyn. Continue oxygen, steroids. Taper steroids slowly. Pyuria: Possibly epididymitis. S/P treatment with rocephin. Caballero catheter in place. Urine culture no growth in 48 hrs. Urinary retention: Caballero catheter in place. Appreciate urology recommendations. Change Caballero catheter monthly. History of bladder cancer: Appreciate oncology, urology recommendations. Patient will need radical cystectomy but is not stable at this time. Needs repeat cystoscopy and TURBT by urology. Heme/onc RECOMMENDED hospice. Insulin-dependent diabetes mellitus: Hold Levemir due to hypoglycemia. Patient with poor oral intake. Monitor Accu-Cheks and cover with sliding scale insulin. Hypertension: Continue home medications. Hyperlipidemia: Continue home medications. Agitation: Appreciate psychiatry recommendations. Generalized weakness: Continue PT/OT. GI bleed: Status post EGD/colonoscopy 03/16/16. Appreciate GI recommendations. Monitor H&H. No active bleeding noted. Monitor closely while on anticoagulation. H/H stable. DVT prophylaxis: SCDs. Appreciate palliative care assistance. Discharge Planning Family meeting 03/24 with medical team and palliative care and family. Family agrees that if the patient does not improve his ability to eat and nutritional status continues to deteriorate they would like to transition to comfort measures. Plan at this time is to continue current management until Monday or Monday, at that time a decision will be made about need for feeding tube. If the feeding tube is deemed necessary the patient would like to discuss next course with hospice. Michelle Trevino MD Mar 27, 2017 09:44
--- NOTE | 2017-03-27 15:32 | HHI.HCPN ---
Reason for visit a. To assist with evaluation and management of symptoms including: dyspnea, pain b. To assist medical decision maker(s) with: better understanding of current medical conditions; weighing benefits/burdens of medical treatment options; making medical treatment decisions. Subjective/Interval History Pt seen today to follow up on comfort, goals with patient/family. VS stable. CBC stable/unremarkable. Psychiatry following, added 125mg depakote . Pt continues to have episodes of confusion, times where he is more oriented and appropriate. Oral intake improved some,though still fluctuating, 25-30-50-90% of past few days meals per documentation. Tolerating room air since yesterday. Seen in room no visitors present. He is pleasant, at my greeting says sharri how are you . He tells me his sister was here to see him earlier , though I am not certain how accurate this is. He is oriented to self, [place] however when asked where he is at he states school, when asked why he is here he taps his chest and says for this. I explored that he is in the hospital he agrees with me. He is unable to name the date or president. He is generally cooperative and does follow simple commands. He falls asleep at times. Following exam call to healthcare surrogate Donna, left. Also called son Amadeo, unable to leave . Donna called me back a few minutes later provided update on current status, assessment, recent diagnostics. She asked about discharge planning and when the patient will be discharged, I again reviewed with her that disposition will depend on goals and patient condition; if the patient were back to his baseline and able to medically discharged to SNF with aggressive goals then that was a possibility, however if patient continued to have AMS, not eating enough etc. then if he were discharged to a facility he would be sent right back for those conditions. acceptance/placement under those conditions would be dependent on if goals were comfort oriented and if patient was receiving hospice care. Of note this patient is known to palliative from recent admission 02/06 through 02/19 : At that time he was admitted for weakness, possible syncope. He had ongoing hallucinations. He had extensive workup per psychiatry, neurology, and he had ongoing delirium no clear etiology was identified. Workup essentially negative LP was considered however eventually symptoms started to improve and he did not receive LP. . Advance Directives Health Care Surrogate: Copy in medical record Advance Directive Specifics Date completed: 02/08/17 Health Care Surrogate(s): Names friend Donna Chambers as primary, Julia Zavaleta as secondary Objective Vital Signs Date Time Temp Pulse Resp B/P (MAP) Pulse Ox O2 Delivery O2 Flow Rate FiO2 03/27/17 12:38 94.0 56 20 132/60 (84) 98 03/27/17 08:23 95.6 53 20 132/88 (103) 95 03/27/17 07:00 95 Room Air 03/27/17 04:00 97.1 60 18 129/70 (89) 93 03/27/17 00:00 97.2 52 18 130/67 (88) 96 03/26/17 22:00 96 Room Air 03/26/17 20:00 97.2 50 18 97/52 (67) 95 03/26/17 16:00 97.1 52 19 110/54 (72) 94 Intake & Output 03/27/17 03/27/17 07:00 19:00 Intake Total 600 ml Output Total 650 ml 950 ml Balance -650 ml -350 ml IV Total 600 ml Output Urine Total 650 ml 950 ml # Bowel Movements 0 2 Physical Exam CONSTITUTIONAL/GENERAL: This is an adequately nourished patient, in no apparent distress, lethargic, confused TUBES/LINES/DRAINS: Peripheral IV upper extremity, urinary catheter SKIN: No jaundice, rashes, or lesions. Few areas Ecchymoses on upper extremities, + dark ecchymosis right subclavian chest region. few abrasions RLE. Skin warm and dry. NECK: Trachea midline. Supple, nontender. No palpable thyroid enlargement or nodularity. CARDIOVASCULAR: Regular rate and rhythm without murmur. No JVD. Peripheral pulses symmetric. RESPIRATORY/CHEST: Symmetric, unlabored respirations. On RA. Clear to auscultation. Breath sounds equal bilaterally. GASTROINTESTINAL: Abdomen soft, non-tender, nondistended. No hepato-splenomegaly , or palpable masses. No guarding. Bowel sounds normoactive . MUSCULOSKELETAL: Extremities without clubbing, cyanosis, or edema. 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 No joint tenderness or effusion noted. NEUROLOGICAL: Lethargic, easily arouses. Oriented to self, state [place], ?family. Confused to place/date/situation. Cooperative, follows simple commands. Observe moving all 4 extremities ( residual left AKA limb) PSYCHIATRIC: No obvious anxiety/depression. Confused though pleasant. Diagnostic Tests Laboratory Laboratory Tests Test 03/25/17 07:47 03/26/17 08:36 White Blood Count 7.8 TH/MM3 (4.0-11.0) 7.6 TH/MM3 (4.0-11.0) Red Blood Count 3.26 MIL/MM3 (4.50-5.90) 3.56 MIL/MM3 (4.50-5.90) Hemoglobin 9.8 GM/DL (13.0-17.0) 10.7 GM/DL (13.0-17.0) Hematocrit 28.5 % (39.0-51.0) 31.4 % (39.0-51.0) Mean Corpuscular Volume 87.6 FL (80.0-100.0) 88.1 FL (80.0-100.0) Mean Corpuscular Hemoglobin 30.1 PG (27.0-34.0) 30.1 PG (27.0-34.0) Mean Corpuscular Hemoglobin Concent 34.4 % (32.0-36.0) 34.2 % (32.0-36.0) Red Cell Distribution Width 16.2 % (11.6-17.2) 16.1 % (11.6-17.2) Platelet Count 166 TH/MM3 (150-450) 155 TH/MM3 (150-450) Mean Platelet Volume 9.2 FL (7.0-11.0) 9.3 FL (7.0-11.0) Neutrophils (%) (Auto) 88.1 % (16.0-70.0) Lymphocytes (%) (Auto) 5.6 % (9.0-44.0) Monocytes (%) (Auto) 6.2 % (0.0-8.0) Eosinophils (%) (Auto) 0.0 % (0.0-4.0) Basophils (%) (Auto) 0.1 % (0.0-2.0) Neutrophils # (Auto) 6.9 TH/MM3 (1.8-7.7) Lymphocytes # (Auto) 0.4 TH/MM3 (1.0-4.8) Monocytes # (Auto) 0.5 TH/MM3 (0-0.9) Eosinophils # (Auto) 0.0 TH/MM3 (0-0.4) Basophils # (Auto) 0.0 TH/MM3 (0-0.2) CBC Comment DIFF FINAL Differential Comment Blood Urea Nitrogen 37 MG/DL (7-18) Creatinine 1.40 MG/DL (0.60-1.30) Random Glucose 256 MG/DL (74-106) Total Protein 4.1 GM/DL (6.4-8.2) Calcium Level 7.3 MG/DL (8.5-10.1) Phosphorus Level 2.2 MG/DL (2.5-4.9) Magnesium Level 2.0 MG/DL (1.5-2.5) Sodium Level 137 MEQ/L (136-145) Potassium Level 4.4 MEQ/L (3.5-5.1) Chloride Level 105 MEQ/L (98-107) Carbon Dioxide Level 24.5 MEQ/L (21.0-32.0) Anion Gap 8 MEQ/L (5-15) Estimat Glomerular Filtration Rate 49 ML/MIN (>89) Protein Corrected Calcium 9.1 MG/DL (8.5-10.1) Result Diagram: 03/26/17 0836 03/25/17 0747 Microbiology Microbiology Date/Time Source Procedure Growth Status 03/04/17 17:04 Blood Peripheral Aerobic Blood Culture - Final NO GROWTH IN 5 DAYS Complete 03/04/17 17:04 Blood Peripheral Anaerobic Blood Culture - Final NO GROWTH IN 5 DAYS Complete 03/11/17 03:00 Stool Stool Stool Occult Blood (SANGEETA) - Final HEMOCCULT POSITIVE Complete 03/04/17 20:50 Nasal Washing Influenza Types A,B Antigen (SANGEETA) - Final NEGATIVE FOR FLU A AND B ANTIGEN.... Complete 03/11/17 09:42 Urine Clean Catch Urine Culture - Final NO GROWTH IN 48 HOURS. Complete 03/05/17 03:35 Abscess Leg Gram Stain - Final Complete 03/05/17 03:35 Wound Culture - Final Staphylococcus Aureus Complete Imaging Last Impressions CT Angiography 03/21/17 0000 Signed Impressions: Service Date/Time: Tuesday, March 21, 2017 14:02 - CONCLUSION: 1. Bilateral pulmonary emboli. 2. Small bilateral pleural effusions right greater than left with consolidation in the right posterior lung base. Clemente Alcala MD Lung Scan-VQ Nuclear Medicine 03/20/17 0000 Signed Impressions: Service Date/Time: Monday, March 20, 2017 11:15 - CONCLUSION: Intermediate to high probability of pulmonary embolism. Correlation suggested. Bennett Ibarra MD FACR Chest X-Ray 03/20/17 0000 Signed Impressions: Service Date/Time: Monday, March 20, 2017 13:47 - CONCLUSION: Loculated cardiomegaly without failure or infiltrate Bennett Ibarra MD FACR Head CT 03/18/17 0000 Signed Impressions: Service Date/Time: Saturday, March 18, 2017 11:31 - CONCLUSION: 1. 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 2. Diffuse cerebral atrophy. 3. No acute infarct, acute hemorrhage, mass effect or extra-axial fluid collections. 4. Fluid is noted within the right mastoid air cells. Mejia Davidson MD Venous Access Device Injection 03/14/17 0000 Signed Impressions: Service Date/Time: Tuesday, March 14, 2017 12:06 - CONCLUSION: 1. The port is in excellent position and flushes easily. 2. Contrast could not be withdrawn from the port though no definite fibrin sheath is evident around the catheter. The catheter was locked with 4 mg of TPA. Jose J Ibarra MD Brain MRI 03/05/17 0000 Signed Impressions: Service Date/Time: Sunday, March 05, 2017 11:28 - CONCLUSION: Moderate motion artifact. Negative for acute ischemic event. Atrophy with periventricular changes. Bennett Ibarra MD FACR Abdomen/Pelvis CT 03/04/17 3512 Signed Impressions: Service Date/Time: Saturday, March 04, 2017 18:28 - CONCLUSION: 1. Bilateral pleural effusions small to moderate in size. 2. No acute findings in the abdomen and pelvis. Corby Melendez MD Assessment and Plan Disease Oriented Problem List: (1) Pulmonary emboli (2) Bladder cancer (3) Catheter-associated urinary tract infection (4) Metabolic encephalopathy (5) GI bleed not requiring more than 4 units of blood in 24 hours, ICU, or surgery (6) Delirium (7) insulin-dependent diabetes (8) Hypertension (9) glaucoma (10) remote history of CVA (11) history of prostate cancer, s/p radiation Symptom Scale: (1) weakness 0-10 Scale: Unable to quantify (2) pain 0-10 Scale: Unable to quantify Pertinent Non-Medical Issues (Per prior palliative care interactions ) =Psychosocial:Born and raised in [place], moved to [place] a few years ago. He lives alone.He has been 3 times, a few years ago from third . He has one child, a son Amadeo Valente living in [place]. 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 =Spiritual: The patient has a Nondenominational background, and he has attended a local muslim intermittently. He is not affiliated with any particular muslim or clergy at this time. He is open to web solutions architect visits. =Legal: Patient has had ongoing episodes of confusion and intermittent hallucinations since last January. During hospitalizations mental status has fluctuated, at times he has had some awareness of his malignancy, plans for surgery and the gravity of his conditions. Given his fluctuating mental status patient may not have total capacity for making decisions , recommend shared decision making. He has previously completed a healthcare surrogate designating his close friend and retired nurse Donna Chambers is his HCS. =Ethical issues impacting care: No ethical issues identified . Important Contacts Friend and HEALTHCARE SURROGATE: Donna Chambers [phone] Son: Amadeo Valente [phone] [employer] Julia Zavaleta (alternate healthcare surrogate)[phone] . Prognosis The patient's overall prognosis is somewhat guarded in the long-term. He had been in the midst of aggressive treatment for his invasive bladder cancer, and has had worsening weakness, not helped by his ongoing confusion and delirium, onset January 2017. Etiology not clear at conclusion of last prolonged hospitalization for the same, patient with no history of psychiatric problems. Oncology felt likely secondary to metabolic encephalopathy. If his confusion and inability to participate in activities needed to improve/maintain strength continued, and poor nutrition 2/2 continues he will likely experience continued decline and debility. it is not clear that he will ever get well enough to obtain additional treatment for his bladder cancer. He now has new findings of bilateral pulmonary embolus which will further complicate his medical course. . Code Status: No Code Plan * Legal decision maker: Patient has had ongoing episodes of confusion and intermittent hallucinations since last January. During hospitalizations mental status has fluctuated, at times he has had some awareness of his malignancy, plans for surgery and the gravity of his conditions. Given his fluctuating mental status patient may not have total capacity for making decisions , recommend shared decision making. He has previously completed a healthcare surrogate naming his close friend and retired nurse Donnaalex Chambers is his HCS. * Goals: Per extensive family meeting 03/24:Tentative plan to maximize medical therapy in the coming days, monitoring for any signs of improvement, and early next week Monday/ Monday consider transition to comfort focus with hospice if patient is not with significant improvement, if no further treatments to further offer clinical improvement, NO feeding tube. * CODE STATUS: DNR * SYMPTOMS: ----Delirium --fluctuating mental status since admission January 2017. Extensive workup completed at that time. No clear etiology at that time. Multiple psychiatric medications and adjustments. Long period Without opiates or benzodiazepines. Complete workup short of LP was done all with negative findings. ??? Dementia/ CT brain = diffuse cerebral atrophy --Weakness/debility- patient continues to be confused and with inability to fully participate in wellness activities; likely his weakness and decline will continue. Would benefit from maximized PT, OT if neurological status improves and he is able to participate. -- pain-endorses some pain sometimes with breathing/some intermittent shortness of breath,sometimes back pain, unable to qualify/quantify. + PE, + prolonged bedbound status. has prn Tylenol available. Cautious use of opiates given hx delirium, AMS unknown etiology/ today patient endorses some discomfort with deep inspiration but not at rest. * Palliative care will continue to follow during hospital course as condition evolves, to assist patient/decision-maker with understanding of medical conditions, weighing benefits/burdens of treatment options, for clarification of goals of treatment. Additionally will assist with any symptoms of palliative concern . Attestation To help prompt me to consider important information that might be impacting today's encounter and assessment, information from prior notes written by myself or my colleagues may have been "brought forward" into today's note. My signature on this note, however, is an attestation that I personally performed the exam, history, and/or decision-making noted today, and, unless otherwise indicated, the interactions with patient, family, and staff as well as the review of records all occurred today. I also attest that the listed assessment and stated plan reflect my best clinical judgment today based on the combination of historical information, prior notes, and today's exam/ interactions. When time spent is documented, it refers only to time spent today by the signer, or if indicated, combined time spent today by collaborating physician/nurse practitioner. Natalie Sanchez Mar 27, 2017 15:32
[2017-03-27] MEDS: LATANOPROST 0.005% OPHT SOLN 2.5 ML BTL RIGHT EYE SCH (22:04)
[2017-03-28 00:51] VITALS: BP 154/74; PULSE 64; RESP 18; TEMP 97.4; O2SAT 97
[2017-03-28 06:01] VITALS: BP 120/65; PULSE 54; RESP 18; TEMP 97.5; O2SAT 95
[2017-03-28] MEDS: INSULIN ASPART SUPPLEMENTAL SCALE SQ SCH ×4 (08:00→21:15)
[2017-03-28 08:13] VITALS: BP 120/99; PULSE 56; RESP 20; TEMP 97.5; O2SAT 98
[2017-03-28] MEDS: PANTOPRAZOLE SOD 40 MG DELAYED RELEASE TAB PO SCH (08:38)
[2017-03-28] MEDS: DIVALPROEX SODIUM DELAYED RELEASE 125 MG TAB PO SCH (08:38)
[2017-03-28] MEDS: LOSARTAN 25 MG TAB PO SCH (08:38)
[2017-03-28] MEDS: QUEtiapine FUMARATE 25 MG TAB PO SCH ×2 (08:38→12:36)
[2017-03-28] MEDS: POTASSIUM CHLORIDE 10 MEQ CAP PO SCH (08:39)
[2017-03-28] MEDS: APIXABAN 5 MG TABLET PO SCH ×2 (08:39→22:06)
[2017-03-28] MEDS: ATORVASTATIN 20 MG TAB PO SCH (08:39)
[2017-03-28] MEDS: METOPROLOL TARTRATE 50 MG TAB PO SCH ×2 (08:39→21:00)
[2017-03-28] MEDS: predniSONE 20 MG TAB PO SCH ×2 (08:39→22:06)
[2017-03-28] MEDS: TAMSULOSIN HCL 0.4 MG CAP PO SCH (08:39)
[2017-03-28] MEDS: FUROSEMIDE 20 MG/2 ML VIAL IV PUSH SCH (08:40)
[2017-03-28] MEDS: SODIUM CHLORIDE 0.9% FLUSH 10 ML FLUSH IV FLUSH SCH ×2 (08:40→22:08)
[2017-03-28] MEDS: DORZOLAMIDE 2% OPTH SOLN 200 DROP/10 ML BTLO RIGHT EYE SCH ×2 (08:41→22:08)
--- NOTE | 2017-03-28 11:06 | HHI.PYPN ---
Subjective Remarks I have seen and examined this patient today for psychiatric reevaluation. Documentation was reviewed. On this evaluation today the patient is alert, calm , cooperative, conversant. He reports that he feels much better, he smiles very often, has a full range of affects, reports good mood, denies anhedonia, he denies hopelessness, denies helplessness, denies suicidal and homicidal ideation, he denies visual and auditory hallucinations. At this moment patient does not seem to be internally stimulated, his attention span is appropriate, the patient is oriented 3, able to list the days of the week, back and forward , the months of the year, able to tell me who is the circuits engineer. No restlessness or agitation at this moment. As per revision of documentation patient has been showing confusion on and off, but apparently has been doing much better than days before. Review of Systems Except as stated in HPI: all other systems reviewed are Neg Mental Status Examination Appearance: Appropriate Consciousness: Alert, Clouded Orientation: Person, Place, Date/Time Motor Activity: Abnormal gait Speech: Incoherent Fund of Knowledge: Inadequate Attention and Concentration: Easily Distracted, Inadequate Memory: Impaired Mood: Irritable Affect: Irritable, Other (euphoric) Thought Process & Associations: Loose associations, Tangential Hallucination Type: Visual Suicidal Ideation: No Suicidal Plan: No Suicidal Intention: No Homicidal Ideation: No Homicidal Plan: No Homicidal Intention: No Insight: Fair Judgment: Impulsive Results Labs Date/Time Source Procedure Growth Status 03/04/17 17:04 Blood Peripheral Aerobic Blood Culture - Final NO GROWTH IN 5 DAYS Complete 03/04/17 17:04 Blood Peripheral Anaerobic Blood Culture - Final NO GROWTH IN 5 DAYS Complete 03/11/17 03:00 Stool Stool Stool Occult Blood (SANGEETA) - Final HEMOCCULT POSITIVE Complete 03/04/17 20:50 Nasal Washing Influenza Types A,B Antigen (SANGEETA) - Final NEGATIVE FOR FLU A AND B ANTIGEN.... Complete 03/11/17 09:42 Urine Clean Catch Urine Culture - Final NO GROWTH IN 48 HOURS. Complete 03/05/17 03:35 Abscess Leg Gram Stain - Final Complete 03/05/17 03:35 Wound Culture - Final Staphylococcus Aureus Complete Vitals/IOs Vital Signs Date Time Temp Pulse Resp B/P (MAP) Pulse Ox O2 Delivery O2 Flow Rate FiO2 03/28/17 08:13 97.5 56 20 120/99 (106) 98 03/27/17 21:30 Room Air 03/26/17 09:14 2.00 03/25/17 07:30 21 Intake and Output 03/28/17 03/28/17 03/29/17 08:00 16:00 00:00 Output Total 400 ml Balance -400 ml Assessment & Plan Problem List: (1) Delirium due to another medical condition ICD Codes: F05 - Delirium due to known physiological condition Assessment & Plan: Continue Seroquel 50 mg twice a day, I will increase Depakote to 250 mg twice a day to help with behavioral dysregulation. Patient definitely showing some improvement in mentation. Assessment & Plan Estimated LOS: days Justification for Cont. Inpt. Patient does not meet criteria for involuntary psychiatric admission. We'll follow-up. Aung Cuevas MD Mar 28, 2017 11:06
[2017-03-28 12:16] VITALS: BP 133/67; PULSE 57; RESP 20; TEMP 97.3; O2SAT 100
--- NOTE | 2017-03-28 12:21 | HHI.PR ---
Subjective Remarks Patient is confused. He does not know where he is or why he is here. He denies any pain currently. States he eat fruits for breakfast. Discussed with RN and DEAN OF EDUCATION, he had some of his breakfast earlier today. Objective Vitals Vital Signs Date Time Temp Pulse Resp B/P (MAP) Pulse Ox O2 Delivery O2 Flow Rate FiO2 03/28/17 12:16 97.3 57 20 133/67 (89) 100 03/28/17 08:13 97.5 56 20 120/99 (106) 98 03/28/17 06:01 97.5 54 18 120/65 (83) 95 03/28/17 00:51 97.4 64 18 154/74 (100) 97 03/27/17 21:30 97 Room Air 03/27/17 21:19 97.4 65 18 119/53 (75) 96 03/27/17 18:41 128/53 (78) 03/27/17 16:48 97.2 67 20 173/72 (105) 97 03/27/17 12:38 94.0 56 20 132/60 (84) 98 I/O 03/27/17 03/27/17 03/27/17 03/28/17 03/28/17 03/28/17 07:00 15:00 23:00 07:00 15:00 23:00 Intake Total 600 ml Output Total 950 ml 800 ml 400 ml Balance -350 ml -800 ml -400 ml IV Total 600 ml Output Urine Total 950 ml 800 ml 400 ml # Bowel Movements 2 1 1 Result Diagram: 03/26/17 0836 03/25/17 0747 Objective Remarks GENERAL: Confused, in no apparent distress. Does not answer questions appropriately. CARDIOVASCULAR: Normal rate and regular rhythm without murmurs, gallops, or rubs. RESPIRATORY: Good respiratory efforts. Breath sounds equal and clear to auscultation bilaterally. GASTROINTESTINAL: Abdomen soft, non-tender, non-distended. Normal active bowel sounds MUSCULOSKELETAL: Extremities without cyanosis, or edema. NEURO: Awake. Not oriented. Confused. Move all extremities 4 spontaneously. Does not answer questions or follow commands appropriately. PSYCH: Calm Procedures None A/P Problem List: (1) Catheter-associated urinary tract infection ICD Code: T83.511A - Infection and inflammatory reaction due to indwelling urethral catheter, initial encounter; N39.0 - Urinary tract infection, site not specified Status: Acute (2) Metabolic encephalopathy ICD Code: G93.41 - Metabolic encephalopathy Status: Acute Assessment and Plan 76-year-old male with bladder cancer brought into the hospital for acute encephalopathy. Apparently the patient has had recurrent setbacks. Palliative care is following. Family is considering transitioning him to comfort care. Patient and family to meet again today. Acute metabolic encephalopathy: Likely secondary to multiple comorbid conditions including hypoglycemia, hypoxia, sedating medications. Ativan has been discontinued. EEG shows encephalopathy. CT of the head is unremarkable. Appreciate psychiatry recommendations, Dr. Cuevas: Mental status is improving. Seroquel increased to 50 mg twice a day and Depakote increased to 250 mg twice a day. Per psychiatry, avoid anticholinergics, benzos, and narcotics as much as possible. Pulmonary embolus: VQ scan shows intermediate to high probability of pulmonary embolism. CT pulmonary angiogram confirms PE. Appreciate pulmonology recommendations. Heparin drip discontinued. Continue Eliquis. Currently asymptomatic. Possible healthcare acquired pneumonia: Currently not on antibiotics. Per review of the EMR patient has received Rocephin, Ceftin, and Zosyn. Continue oxygen, steroids. Taper steroids slowly. Pyuria: Possibly epididymitis. S/P treatment with Rocephin. Caballero catheter in place. Urine culture no growth in 48 hrs. Urinary retention: Caballero catheter in place. Appreciate urology recommendations. Change Caballero catheter monthly. History of bladder cancer: Appreciate oncology, urology recommendations. Patient will need radical cystectomy but is not stable at this time. Needs repeat cystoscopy and TURBT by urology. Heme/onc RECOMMENDED hospice. Insulin-dependent diabetes mellitus: Hold Levemir due to hypoglycemia. Patient with poor oral intake. Monitor Accu-Cheks and cover with sliding scale insulin. Hypertension: Continue home medications. Protein calorie malnutrition: Due to inadequate oral intake. Likely secondary to multiple underlying comorbid conditions noted above. Encourage oral intake, nutrition supplement as tolerated. Hyperlipidemia: Continue home medications. Agitation: Appreciate psychiatry recommendations. Improving with current medications. Generalized weakness: Continue PT/OT. GI bleed: Status post EGD/colonoscopy 03/16/16. Appreciate GI recommendations. Monitor H&H. No active bleeding noted. Monitor closely while on anticoagulation. H/H stable. DVT prophylaxis: SCDs. Appreciate palliative care assistance. Discharge Planning Will need SNF. Possible hospice candidate. Palliative care following. Raza Roman MD Mar 28, 2017 12:21
--- NOTE | 2017-03-28 15:34 | HHI.HCPN ---
Reason for visit a. To assist with evaluation and management of symptoms including: dyspnea, pain b. To assist medical decision maker(s) with: better understanding of current medical conditions; weighing benefits/burdens of medical treatment options; making medical treatment decisions. Subjective/Interval History Pt seen today to follow up on comfort, goals with patient/family. Notified by nursing that family present at bedside. Psych cont to follow- note from earlier today indicates pt more alert, oriented , than previously. Mood more stable on Depakote- no hallucination or agitation reported. No new labs or imaging. PO intake continues to fluctuate- would not eat lunch today but ate cheesecake per family. Seen in room son, HCS Donna, and pt sister present. He is pleasant, oriented to self, [place], [place]. Tells me he is in the hospital for "breathing exercises". No further insight to hospitalization. He is unable to name family/ HCS in the room, when asked who his son is he does not appear to recognize him. He complains of feeling tired, worn out. When asked why he tells me from running around all day. He endorses some chest discomfort/pain when he takes deep breaths. Donna, Son Amadeo indicate that as was discussed last week, they wanted to give until Mon/Tues to monitor pt for progress/significant improvement, and make decision to continue aggressive tx vs transition to comfort focus. Explore that patient mood appears stable at this time though he is still not back at his cognitive baseline, and we still don't have a clear etiology on what has caused the wide fluctuations in his mental status. Further explore that his appetite has fluctuated though he has been eating more than he was previously appetite may continue to fluctuate though he is not necessarily facing a feeding tube at this time. Explore that aggressive course could continue to try to maximize therapies, possible patient could be discharged back to halfway though likely he will continue to have acute issues and could have recurrent hospitalization in days weeks or months. Alternatively explore that if they did not desire further investigation/invasive treatment such as IVs possible feeding tube etc. that they can pursue discharge with hospice services for comfort, and when the patient condition again fluctuates or deteriorates whether due to respiratory status, neurologic status etc. he would be managed for symptoms and comfort versus hospitalization and aggressive care. They understand that without ongoing aggressive interventions patient may deteriorate in days to weeks. They request comfort, request hospice consultation. Review of hospice role ,philosophy. Hospice order placed. Of note this patient is known to palliative from recent admission 02/06 through 02/19 : At that time he was admitted for weakness, possible syncope. He had ongoing hallucinations. He had extensive workup per psychiatry, neurology, and he had ongoing delirium no clear etiology was identified. Workup essentially negative LP was considered however eventually symptoms started to improve and he did not receive LP. . Family/friend interactions *See above . Advance Directives Health Care Surrogate: Copy in medical record Advance Directive Specifics Date completed: 02/08/17 Health Care Surrogate(s): Names friend Donna Chambers as primary, Julia Zavaleta as secondary Objective Vital Signs Date Time Temp Pulse Resp B/P (MAP) Pulse Ox O2 Delivery O2 Flow Rate FiO2 03/28/17 12:16 97.3 57 20 133/67 (89) 100 03/28/17 08:13 97.5 56 20 120/99 (106) 98 03/28/17 06:01 97.5 54 18 120/65 (83) 95 03/28/17 00:51 97.4 64 18 154/74 (100) 97 03/27/17 21:30 97 Room Air 03/27/17 21:19 97.4 65 18 119/53 (75) 96 03/27/17 18:41 128/53 (78) 03/27/17 16:48 97.2 67 20 173/72 (105) 97 Intake & Output 03/28/17 03/28/17 07:00 19:00 Intake Total 600 ml Output Total 1200 ml 450 ml Balance -1200 ml 150 ml Intake Oral 600 ml Output Urine Total 1200 ml 450 ml # Bowel Movements 2 1 Physical Exam CONSTITUTIONAL/GENERAL: This is an adequately nourished patient, in no apparent distress, awake, confused TUBES/LINES/DRAINS: Peripheral IV upper extremity, urinary catheter SKIN: No jaundice, rashes, or lesions. Few areas Ecchymoses on upper extremities, + dark ecchymosis right subclavian chest region. few healing abrasions RLE. Skin warm and dry. NECK: Trachea midline. Supple, nontender. No palpable thyroid enlargement or nodularity. CARDIOVASCULAR: Regular rate and rhythm without murmur. No JVD. Peripheral pulses symmetric. RESPIRATORY/CHEST: Symmetric, unlabored respirations. On RA. Coarse scattered rhonchi, decreased air movement to bases. Breath sounds equal bilaterally. GASTROINTESTINAL: Abdomen soft, non-tender, nondistended. No hepato-splenomegaly , or palpable masses. No guarding. Bowel sounds normoactive . MUSCULOSKELETAL: Extremities without clubbing, cyanosis, or edema. 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 No joint tenderness or effusion noted. NEUROLOGICAL: Awake. Oriented to self, state [place], states he is in the hospital. Poor insight into reason for hospitalization, medical conditions. Does not appear to recognize or be able to name family at bedside. Cooperative, follows commands. moving all 4 extremities ( residual left AKA limb) PSYCHIATRIC: No obvious anxiety/depression. Confused though pleasant. Diagnostic Tests Laboratory Laboratory Tests Test 03/26/17 08:36 White Blood Count 7.6 TH/MM3 (4.0-11.0) Red Blood Count 3.56 MIL/MM3 (4.50-5.90) Hemoglobin 10.7 GM/DL (13.0-17.0) Hematocrit 31.4 % (39.0-51.0) Mean Corpuscular Volume 88.1 FL (80.0-100.0) Mean Corpuscular Hemoglobin 30.1 PG (27.0-34.0) Mean Corpuscular Hemoglobin Concent 34.2 % (32.0-36.0) Red Cell Distribution Width 16.1 % (11.6-17.2) Platelet Count 155 TH/MM3 (150-450) Mean Platelet Volume 9.3 FL (7.0-11.0) Result Diagram: 03/26/17 0836 03/25/17 0747 Microbiology Microbiology Date/Time Source Procedure Growth Status 03/04/17 17:04 Blood Peripheral Aerobic Blood Culture - Final NO GROWTH IN 5 DAYS Complete 03/04/17 17:04 Blood Peripheral Anaerobic Blood Culture - Final NO GROWTH IN 5 DAYS Complete 03/11/17 03:00 Stool Stool Stool Occult Blood (SANGEETA) - Final HEMOCCULT POSITIVE Complete 03/04/17 20:50 Nasal Washing Influenza Types A,B Antigen (SANGEETA) - Final NEGATIVE FOR FLU A AND B ANTIGEN.... Complete 03/11/17 09:42 Urine Clean Catch Urine Culture - Final NO GROWTH IN 48 HOURS. Complete 03/05/17 03:35 Abscess Leg Gram Stain - Final Complete 03/05/17 03:35 Wound Culture - Final Staphylococcus Aureus Complete Imaging Last Impressions CT Angiography 03/21/17 0000 Signed Impressions: Service Date/Time: Tuesday, March 21, 2017 14:02 - CONCLUSION: 1. Bilateral pulmonary emboli. 2. Small bilateral pleural effusions right greater than left with consolidation in the right posterior lung base. Clemente Alcala MD Lung Scan-V Nuclear Medicine 03/20/17 0000 Signed Impressions: Service Date/Time: Monday, March 20, 2017 11:15 - CONCLUSION: Intermediate to high probability of pulmonary embolism. Correlation suggested. Bennett Ibarra MD FACR Chest X-Ray 03/20/17 0000 Signed Impressions: Service Date/Time: Monday, March 20, 2017 13:47 - CONCLUSION: Loculated cardiomegaly without failure or infiltrate Bennett Ibarra MD FACR Head CT 03/18/17 0000 Signed Impressions: Service Date/Time: Saturday, March 18, 2017 11:31 - CONCLUSION: 1. 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 2. Diffuse cerebral atrophy. 3. No acute infarct, acute hemorrhage, mass effect or extra-axial fluid collections. 4. Fluid is noted within the right mastoid air cells. Mejia Davidson MD Venous Access Device Injection 03/14/17 0000 Signed Impressions: Service Date/Time: Tuesday, March 14, 2017 12:06 - CONCLUSION: 1. The port is in excellent position and flushes easily. 2. Contrast could not be withdrawn from the port though no definite fibrin sheath is evident around the catheter. The catheter was locked with 4 mg of TPA. Jose J Ibarra MD Brain MRI 03/05/17 0000 Signed Impressions: Service Date/Time: Sunday, March 05, 2017 11:28 - CONCLUSION: Moderate motion artifact. Negative for acute ischemic event. Atrophy with periventricular changes. Bennett Ibarra MD FACR Abdomen/Pelvis CT 03/04/17 199 Signed Impressions: Service Date/Time: Saturday, March 04, 2017 18:28 - CONCLUSION: 1. Bilateral pleural effusions small to moderate in size. 2. No acute findings in the abdomen and pelvis. Corby Melendez MD Assessment and Plan Disease Oriented Problem List: (1) Pulmonary emboli (2) Bladder cancer (3) Catheter-associated urinary tract infection (4) Metabolic encephalopathy (5) GI bleed not requiring more than 4 units of blood in 24 hours, ICU, or surgery (6) Delirium (7) insulin-dependent diabetes (8) Hypertension (9) glaucoma (10) remote history of CVA (11) history of prostate cancer, s/p radiation Symptom Scale: (1) weakness 0-10 Scale: Unable to quantify (2) pain 0-10 Scale: Unable to quantify (3) Delirium 0-10 Scale: Unable to quantify (4) Dyspnea 0-10 Scale: Unable to quantify Pertinent Non-Medical Issues (Per prior palliative care interactions ) =Psychosocial:Born and raised in [place], moved to [place] a few years ago. He lives alone.He has been 3 times, a few years ago from third . He has one child, a son Amdaeo Valente living in [place]. 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 =Spiritual: The patient has a Jew background, and he has attended a local mu-ism intermittently. He is not affiliated with any particular mu-ism or clergy at this time. He is open to shore working supervisor visits. =Legal: Patient has had ongoing episodes of confusion and intermittent hallucinations since last January. During hospitalizations mental status has fluctuated, at times he has had some awareness of his malignancy, plans for surgery and the gravity of his conditions. Given his fluctuating mental status patient may not have total capacity for making decisions , recommend shared decision making. He has previously completed a healthcare surrogate designating his close friend and retired nurse Donna Chambers is his HCS. =Ethical issues impacting care: No ethical issues identified . Important Contacts Friend and HEALTHCARE SURROGATE: Donna Chambers [phone] Son: Amadeo Valente [phone] [id number] Julia Zavaleta (alternate healthcare surrogate)[phone] . Prognosis The patient's overall prognosis is somewhat guarded in the long-term. He had been in the midst of aggressive treatment for his invasive bladder cancer, and has had worsening weakness, not helped by his ongoing confusion and delirium, onset January 2017. Etiology not clear at conclusion of last prolonged hospitalization for the same, patient with no history of psychiatric problems. Oncology felt likely secondary to metabolic encephalopathy. If his confusion and inability to participate in activities needed to improve/maintain strength continued, and poor nutrition 2/2 continues he will likely experience continued decline and debility. it is not clear that he will ever get well enough to obtain additional treatment for his bladder cancer. He now has new findings of bilateral pulmonary embolus which will further complicate his medical course. . Code Status: No Code Plan * Legal decision maker: Patient has had ongoing episodes of confusion and intermittent hallucinations since last January. During hospitalizations mental status has fluctuated, at times he has had some awareness of his malignancy, plans for surgery and the gravity of his conditions. Given his fluctuating mental status patient may not have total capacity for making decisions , recommend shared decision making. He has previously completed a healthcare surrogate naming his close friend and retired nurse Donna Chambers is his HCS. * Goals: Per extensive family meeting 03/24:Tentative plan to maximize medical therapy in the coming days, monitoring for any signs of improvement, and early next week Monday/ Monday consider transition to comfort focus with hospice if patient is not with significant improvement, if no further treatments to further offer clinical improvement, NO feeding tube. * 03/28/17: Met with healthcare surrogate Donna fred Childs at bedside, review of hospitalization, treatments, limited options. They request hospice for comfort measures only and possible discharge back to an SNF setting with hospice . Hospice order placed. * CODE STATUS: DNR * SYMPTOMS: ----Delirium --fluctuating mental status since admission January 2017. Extensive workup completed at that time. No clear etiology at that time. Multiple psychiatric medications and adjustments. Long period Without opiates or benzodiazepines. Complete workup short of LP was done all with negative findings. ??? Dementia/ CT brain = diffuse cerebral atrophy --Weakness/debility- patient continues to be confused and with inability to fully participate in wellness activities; likely his weakness and decline will continue. Would benefit from maximized PT, OT if neurological status improves and he is able to participate--though he has not been consistently alert, oriented enough to participate. -- pain-endorses some pain sometimes with breathing/some intermittent shortness of breath,sometimes back pain, unable to qualify/quantify. + PE, + prolonged bedbound status. has prn Tylenol available. Cautious use of opiates given hx delirium, AMS unknown etiology/ today patient endorses some discomfort with deep inspiration --Dyspnea-no subjective shortness of breath reported, no shortness of breath observed. Patient at risk for respiratory distress, respiratory compromise secondary to pulmonary embolus. Currently breathing comfortably on room air though endorses some discomfort with deep inspiration. * Palliative care will continue to follow during hospital course as condition evolves, to assist patient/decision-maker with understanding of medical conditions, weighing benefits/burdens of treatment options, for clarification of goals of treatment. Additionally will assist with any symptoms of palliative concern . Attestation To help prompt me to consider important information that might be impacting today's encounter and assessment, information from prior notes written by myself or my colleagues may have been "brought forward" into today's note. My signature on this note, however, is an attestation that I personally performed the exam, history, and/or decision-making noted today, and, unless otherwise indicated, the interactions with patient, family, and staff as well as the review of records all occurred today. I also attest that the listed assessment and stated plan reflect my best clinical judgment today based on the combination of historical information, prior notes, and today's exam/ interactions. When time spent is documented, it refers only to time spent today by the signer, or if indicated, combined time spent today by collaborating physician/nurse practitioner. Natalie Sanchez Mar 28, 2017 15:34
[2017-03-28 16:02] VITALS: BP 120/57; PULSE 64; RESP 18; TEMP 97.1; O2SAT 97
[2017-03-28 20:58] VITALS: BP 107/56; PULSE 60; RESP 18; TEMP 98; O2SAT 96
[2017-03-28] MEDS: DIVALPROEX SODIUM DELAYED RELEASE 250 MG TAB PO SCH (22:06)
[2017-03-28] MEDS: LATANOPROST 0.005% OPHT SOLN 2.5 ML BTL RIGHT EYE SCH (22:07)
[2017-03-29 01:00] VITALS: BP 140/62; PULSE 58; RESP 18; TEMP 97.2; O2SAT 97
[2017-03-29 06:29] VITALS: BP 137/94; PULSE 57; RESP 18; TEMP 98; O2SAT 94
[2017-03-29 08:00] VITALS: BP 136/68; PULSE 88; RESP 18; TEMP 97.1; O2SAT 90
[2017-03-29] MEDS: INSULIN ASPART SUPPLEMENTAL SCALE SQ SCH ×3 (08:00→17:00)
[2017-03-29] MEDS: predniSONE 20 MG TAB PO SCH (08:37)
[2017-03-29] MEDS: METOPROLOL TARTRATE 50 MG TAB PO SCH (08:37)
[2017-03-29] MEDS: ATORVASTATIN 20 MG TAB PO SCH (08:37)
[2017-03-29] MEDS: POTASSIUM CHLORIDE 10 MEQ CAP PO SCH (08:37)
[2017-03-29] MEDS: PANTOPRAZOLE SOD 40 MG DELAYED RELEASE TAB PO SCH (08:37)
[2017-03-29] MEDS: TAMSULOSIN HCL 0.4 MG CAP PO SCH (08:37)
[2017-03-29] MEDS: LOSARTAN 25 MG TAB PO SCH (08:37)
[2017-03-29] MEDS: DIVALPROEX SODIUM DELAYED RELEASE 250 MG TAB PO SCH (08:37)
[2017-03-29] MEDS: APIXABAN 5 MG TABLET PO SCH (08:37)
[2017-03-29] MEDS: QUEtiapine FUMARATE 25 MG TAB PO SCH ×2 (08:37→11:33)
[2017-03-29] MEDS: DORZOLAMIDE 2% OPTH SOLN 200 DROP/10 ML BTLO RIGHT EYE SCH (08:38)
[2017-03-29] MEDS: COLLAGENASE OINT 30 GM TUBE TOPICAL SCH (08:38)
[2017-03-29] MEDS: SODIUM CHLORIDE 0.9% FLUSH 10 ML FLUSH IV FLUSH SCH (08:38)
[2017-03-29 11:42] LABS: HEMATOCRIT 31.5 % (39.0-51.0); HEMOGLOBIN 10.9 GM/DL (13.0-17.0); MEAN CELL VOLUME 88.7 FL (80.0-100.0); MEAN CORPUSCULAR HEMOGLOBIN 30.6 PG (27.0-34.0); MEAN CORPUSCULAR HGB CONC 34.5 % (32.0-36.0); MEAN PLATELET VOLUME 9.7 FL (7.0-11.0); PLATELET COUNT 112 TH/MM3 (150-450); RED BLOOD COUNT 3.55 MIL/MM3 (4.50-5.90); RED CELL DISTRIBUTION WIDTH 16.4 % (11.6-17.2); WHITE BLOOD COUNT 7.3 TH/MM3 (4.0-11.0)
[2017-03-29 12:00] VITALS: BP 166/77; PULSE 51; RESP 18; TEMP 98.4; O2SAT 96
--- NOTE | 2017-03-29 12:38 | HHI.PR ---
Objective Vitals Vital Signs Date Time Temp Pulse Resp B/P (MAP) Pulse Ox O2 Delivery O2 Flow Rate FiO2 03/29/17 08:00 97.1 88 18 136/68 (90) 90 03/29/17 06:29 98.0 57 18 137/94 (108) 94 03/29/17 01:00 97.2 58 18 140/62 (88) 97 03/28/17 20:58 98.0 60 18 107/56 (73) 96 03/28/17 20:15 Room Air 03/28/17 16:02 97.1 64 18 120/57 (78) 97 I/O 03/28/17 03/28/17 03/28/17 03/29/17 03/29/17 03/29/17 07:00 15:00 23:00 07:00 15:00 23:00 Intake Total 600 ml Output Total 400 ml 450 ml 700 ml Balance -400 ml 150 ml -700 ml Intake Oral 600 ml Output Urine Total 400 ml 450 ml 700 ml # Bowel Movements 1 1 1 Result Diagram: 03/29/17 1111 03/25/17 0747 Objective Remarks GENERAL: Confused, in no apparent distress. Does not answer questions appropriately. CARDIOVASCULAR: Normal rate and regular rhythm without murmurs, gallops, or rubs. RESPIRATORY: Good respiratory efforts. Breath sounds equal and clear to auscultation bilaterally. GASTROINTESTINAL: Abdomen soft, non-tender, non-distended. Normal active bowel sounds MUSCULOSKELETAL: Extremities without cyanosis, or edema. NEURO: Awake. Not oriented. Confused. Move all extremities 4 spontaneously. Does not answer questions or follow commands appropriately. PSYCH: Calm Procedures None A/P Problem List: (1) Catheter-associated urinary tract infection ICD Code: T83.511A - Infection and inflammatory reaction due to indwelling urethral catheter, initial encounter; N39.0 - Urinary tract infection, site not specified Status: Acute (2) Metabolic encephalopathy ICD Code: G93.41 - Metabolic encephalopathy Status: Acute Assessment and Plan 76-year-old male with bladder cancer brought into the hospital for acute encephalopathy. Apparently the patient has had recurrent setbacks. Palliative care is following. Family is considering transitioning him to comfort care. Patient and family to meet again today. Acute metabolic encephalopathy: Likely secondary to multiple comorbid conditions including hypoglycemia, hypoxia, sedating medications. Ativan has been discontinued. EEG shows encephalopathy. CT of the head is unremarkable. Appreciate psychiatry recommendations, Dr. Cuevas: Mental status is improving. Seroquel increased to 50 mg twice a day and Depakote increased to 250 mg twice a day. Per psychiatry, avoid anticholinergics, benzos, and narcotics as much as possible. Pulmonary embolus: VQ scan shows intermediate to high probability of pulmonary embolism. CT pulmonary angiogram confirms PE. Appreciate pulmonology recommendations. Heparin drip discontinued. Continue Eliquis. Currently asymptomatic. Possible healthcare acquired pneumonia: Currently not on antibiotics. Per review of the EMR patient has received Rocephin, Ceftin, and Zosyn. Continue oxygen, steroids. Taper steroids slowly. Pyuria: Possibly epididymitis. S/P treatment with Rocephin. Caballero catheter in place. Urine culture no growth in 48 hrs. Urinary retention: Caballero catheter in place. Appreciate urology recommendations. Change Caballero catheter monthly. History of bladder cancer: Appreciate oncology, urology recommendations. Patient will need radical cystectomy but is not stable at this time. Needs repeat cystoscopy and TURBT by urology. Heme/onc RECOMMENDED hospice. Insulin-dependent diabetes mellitus: Hold Levemir due to hypoglycemia. Patient with poor oral intake. Monitor Accu-Cheks and cover with sliding scale insulin. Hypertension: Continue home medications. Protein calorie malnutrition: Due to inadequate oral intake. Likely secondary to multiple underlying comorbid conditions noted above. Encourage oral intake, nutrition supplement as tolerated. Hyperlipidemia: Continue home medications. Agitation: Appreciate psychiatry recommendations. Improving with current medications. Generalized weakness: Continue PT/OT. GI bleed: Status post EGD/colonoscopy 03/16/16. Appreciate GI recommendations. Monitor H&H. No active bleeding noted. Monitor closely while on anticoagulation. H/H stable. DVT prophylaxis: SCDs. Appreciate palliative care assistance. Discharge Planning Will need SNF. Possible hospice candidate. Palliative care following. aRza Roman MD Mar 29, 2017 12:38
[2017-03-29] MEDS ORDERED: HALOPERIDOL LACTATE 5 MG/ML AMP IM ONE (14:45)
[2017-03-29] MEDS ORDERED: APIX5TAB PO (14:46)
--- NOTE | 2017-03-29 14:49 | HHI.DS ---
Discharge Summary Admission Date Mar 04, 2017 at 19:37 Discharge Date: Mar 29, 2017 Admitting Diagnosis anemia, bladder cancer, AMS, hypothermia (1) Catheter-associated urinary tract infection ICD Code: T83.511A - Infection and inflammatory reaction due to indwelling urethral catheter, initial encounter; N39.0 - Urinary tract infection, site not specified Status: Acute (2) Metabolic encephalopathy ICD Code: G93.41 - Metabolic encephalopathy Status: Acute Procedures None Brief History - From Admission 76-year-old male with a past medical history significant for insulin-dependent diabetes mellitus, hypertension and bladder cancer was brought to the emergency department from his group home facility for altered mental status. Patient was recently hospitalized for similar symptoms although his more altered now. He is unable to answer my questions and mumbles incoherently occasionally. He is status post TURBT on September 01 and completed 4 cycles of neoadjuvant chemotherapy in January 2017. He was hypothermic on arrival with a temperature of 94.8. Laboratory values significant for an H&H of 5.8/18.1 and a leukocytosis of 18.1. Patient with a chronic Caballero and UA significant for moderate bacteria, many WBC clumps, large leukocyte esterase, large RBCs. Chest x-ray showed minimal right perihilar lung opacity. Head CT negative for acute intracranial findings. CT of the abdomen/pelvis showed bilateral pleural effusions with no acute findings in the abdomen/pelvis. CBC/BMP: 03/29/17 1111 03/25/17 0747 Significant Findings Laboratory Tests Test 03/29/17 11:11 Red Blood Count 3.55 MIL/MM3 (4.50-5.90) Hemoglobin 10.9 GM/DL (13.0-17.0) Hematocrit 31.5 % (39.0-51.0) Platelet Count 112 TH/MM3 (150-450) PE at Discharge GENERAL: Confused, in no apparent distress. Does not answer questions appropriately. CARDIOVASCULAR: Normal rate and regular rhythm without murmurs, gallops, or rubs. RESPIRATORY: Good respiratory efforts. Breath sounds equal and clear to auscultation bilaterally. GASTROINTESTINAL: Abdomen soft, non-tender, non-distended. Normal active bowel sounds MUSCULOSKELETAL: Extremities without cyanosis, or edema. NEURO: Awake. Not oriented. Confused. Move all extremities 4 spontaneously. Does not answer questions or follow commands appropriately. PSYCH: Calm Pt update on day of discharge Patient has no new complaints. Still confused. Family decided to transition to comfort care only with hospice. Hospital Course 76-year-old male with bladder cancer brought into the hospital for acute encephalopathy. Apparently the patient has had recurrent setbacks. Despite maximal medical treatment, the patient is not improving and family decided to transition into comfort care only. Evaluation and course detailed below: Acute metabolic encephalopathy: Likely secondary to multiple comorbid conditions including hypoglycemia, hypoxia, sedating medications. Ativan has been discontinued. EEG shows encephalopathy. CT of the head is unremarkable. Appreciate psychiatry recommendations, Dr. Cuevas: Mental stable. Seroquel increased to 50 mg twice a day and Depakote increased to 250 mg twice a day. Per psychiatry, avoid anticholinergics, benzos, and narcotics as much as possible. Pulmonary embolus: VQ scan shows intermediate to high probability of pulmonary embolism. CT pulmonary angiogram confirms PE. Appreciate pulmonology recommendations. Heparin drip discontinued. Continue Eliquis. Currently asymptomatic. Possible healthcare acquired pneumonia: Patient completed treatment with antibiotics. Pyuria: Possibly epididymitis. S/P treatment with Rocephin. Caballero catheter in place. Urine culture negative Urinary retention: Caballero catheter in place. Appreciate urology recommendations. Change Caballero catheter monthly. History of bladder cancer: Appreciate oncology, urology recommendations. If improved, he would need repeat cystoscopy and TURBT by urology. Heme/onc RECOMMENDED hospice. Hypertension: Continued home medications. Protein calorie malnutrition: Due to inadequate oral intake. Likely secondary to multiple underlying comorbid conditions noted above. Encourage oral intake, nutrition supplement as tolerated. Hyperlipidemia: Continue home medications. Agitation: Appreciate psychiatry recommendations. Improved with current medications. GI bleed: Status post EGD/colonoscopy 03/16/16. No active bleeding noted. Patient is discharged to hospice care center for comfort care only per his family's request. Pt Condition on Discharge: Deteriorating Discharge Disposition: Hospice/Med Facility Discharge Time: > 30 minutes Discharge Instructions DIET: Follow Instructions for: As Tolerated, No Restrictions Speech Therapy-Diet Recommends: Regular Activities you can perform: Regular-No Restrictions Raza Roman MD Mar 29, 2017 14:49
[2017-03-29 16:00] VITALS: BP 134/65; PULSE 52; RESP 18; O2SAT 97
== END 2017-03-29 17:48 | disposition hospice, inpatient (51) | DRG 871 ==
LOC: NEPC 16:14 → NEDA 19:37 → HCIN 22:35 → N07B 03-06 18:02 → HIME 03-06 19:25 → N05B 03-08 18:15
PROVIDERS: ADMIT Family Medicine; ATTEND Family Medicine
PROC: 0T2BX0Z Change Drainage Device in Bladder, External Approach (ICD-10-PCS; principal; 2017-03-04)
PROC: 30233N1 Transfusion of Nonautologous Red Blood Cells into Peripheral Vein, Percutaneous Approach (ICD-10-PCS; 2017-03-04)
PROC: 0DBP8ZX Excision of Rectum, Via Natural or Artificial Opening Endoscopic, Diagnostic (ICD-10-PCS; 2017-03-16)
DX: A41.9 Sepsis, unspecified organism (principal); J18.9 Pneumonia, unspecified organism; I26.99 Other pulmonary embolism without acute cor pulmonale; G93.41 Metabolic encephalopathy; E46 Unspecified protein-calorie malnutrition; I11.0 Hypertensive heart disease with heart failure; L89.159 Pressure ulcer of sacral region, unspecified stage; I42.9 Cardiomyopathy, unspecified; F03.90 Unspecified dementia, unspecified severity, without behavioral disturbance, psychotic disturbance, mood disturbance, and anxiety; I50.9 Heart failure, unspecified; F05 Delirium due to known physiological condition; K62.6 Ulcer of anus and rectum; N39.0 Urinary tract infection, site not specified; T83.511A Infection and inflammatory reaction due to indwelling urethral catheter, initial encounter; J98.11 Atelectasis; R44.3 Hallucinations, unspecified; K22.10 Ulcer of esophagus without bleeding; K92.2 Gastrointestinal hemorrhage, unspecified; C67.9 Malignant neoplasm of bladder, unspecified; D63.8 Anemia in other chronic diseases classified elsewhere; E11.51 Type 2 diabetes mellitus with diabetic peripheral angiopathy without gangrene; E11.649 Type 2 diabetes mellitus with hypoglycemia without coma; E78.5 Hyperlipidemia, unspecified; H91.91 Unspecified hearing loss, right ear; Y84.6 Urinary catheterization as the cause of abnormal reaction of the patient, or of later complication, without mention of misadventure at the time of the procedure; Y95 Nosocomial condition; Z85.51 Personal history of malignant neoplasm of bladder; Z89.512 Acquired absence of left leg below knee; Z86.73 Personal history of transient ischemic attack (TIA), and cerebral infarction without residual deficits; I25.10 Atherosclerotic heart disease of native coronary artery without angina pectoris; Z87.891 Personal history of nicotine dependence; N48.5 Ulcer of penis; Z78.1 Physical restraint status; Z92.3 Personal history of irradiation; Z85.46 Personal history of malignant neoplasm of prostate; I08.2 Rheumatic disorders of both aortic and tricuspid valves; H40.9 Unspecified glaucoma; Z92.21 Personal history of antineoplastic chemotherapy; Z74.01 Bed confinement status; R31.9 Hematuria, unspecified; K30 Functional dyspepsia; K44.9 Diaphragmatic hernia without obstruction or gangrene; K57.30 Diverticulosis of large intestine without perforation or abscess without bleeding; Z51.5 Encounter for palliative care; Z79.4 Long term (current) use of insulin; Z66 Do not resuscitate; K21.0 Gastro-esophageal reflux disease with esophagitis; B96.20 Unspecified Escherichia coli [E. coli] as the cause of diseases classified elsewhere; R06.03 Acute respiratory distress; L89.899 Pressure ulcer of other site, unspecified stage; N28.9 Disorder of kidney and ureter, unspecified; R26.9 Unspecified abnormalities of gait and mobility
CPT/HCPCS: 36430; 36598; 36600; 70450; 70551; 71010; 71020; 71045; 71275; 74176; 76937; 78582; 80048; 80053; 80202; 81001; 82272; 82550; 82552; 82565; 82607; 82728; 82805; 82947; 82948; 83540; 83550; 83605; 83690; 83735; 83880; 84100; 84145; 84153; 84155; 84484; 85007; 85014; 85018; 85025; 85027; 85610; 85730; 86403; 86850; 86900; 86901; 86920; 87040; 87070; 87086; 87147; 87186; 87205; 87641; 87804; 88305; 88312; 93005; 93306; 94640; 94664; 95819; 99285; A9540; A9567; J0171; J0696; J1630; J1642; J1644; J1815; J1940; J2370; J2543; J2930; J2997; J3370; J7040; J7042; J7050; J7121; J7512; P9016; Q9967